=== PATIENT | female | born 1950 | race Caucasian/White ===

== ENCOUNTER 2018-09-30 19:14 | Observation (INO) | payer MEDICARE, OTHER, SELFPAY ==
[2018-09-30 19:15] VITALS: BP 181/99; PULSE 73; RESP 12; TEMP 36.1; O2SAT 99; BMI 41.4
--- NOTE | 2018-09-30 19:35 | EKG12_ITS ---
Test Reason : Blood Pressure : / mmHG Vent. Rate : 072 BPM Atrial Rate : 072 BPM P-R Int : 162 ms QRS Dur : 066 ms QT Int : 396 ms P-R-T Axes : 052 020 061 degrees QTc Int : 433 ms Sinus rhythm with occasional Premature ventricular complexes Possible Left atrial enlargement Borderline ECG Confirmed by ROBERTO COOK ([id number]), greeting card editor ANI COOK ([id number]) on 10/03/2018 1:11:12 PM Referred By: ERICA Confirmed By:ROBERTO COOK
--- NOTE | 2018-09-30 19:35 | RAD_ITS ---
STUDY: X-RAY CHEST REASON FOR EXAM: Female, 68 years old. Dizziness TECHNIQUE: Single frontal view COMPARISON: None. FINDINGS: The lungs are clear and expanded. There is no demonstrated pleural abnormality. Cardiomegaly. Normal mediastinum and jil. Normal visualized pulmonary arteries. Normal visualized aortic arch and descending thoracic aorta. Degenerative changes of the thoracic spine. Normal visualized ribs, clavicles, and shoulders. There is no demonstrated abnormality of the visualized soft tissue structures of the upper abdomen. RAD/Chest 1 View (Portable) IMPRESSION: Cardiomegaly. Electronically Signed: Rishi Rodriguez DO at 19:54 EST Tel [phone], Service support ,
--- NOTE | 2018-09-30 19:36 | CT_ITS ---
STUDY: CT BRAIN WITHOUT CONTRAST REASON FOR EXAM: Female, 68 years old. Dizziness. RADIATION DOSAGE (If Supplied By Facility): CTDIvol = ( 44.99 ) mGy, DLP = ( 745.49 ) mGycm TECHNIQUE: Transaxial CT imaging of the brain was performed without administration of intravenous contrast material. Individualized dose optimization techniques were used for this CT. COMPARISON: None. FINDINGS: There is no acute bleed or infarct. There are normal white matter tracts. The ventricles are normal in configuration. There is no hydrocephalus. The visualized paranasal sinuses are clear. The mastoid air cells are well aerated. There is no skull fracture. CT/Brain/Head without Contrast IMPRESSION: No acute intracranial abnormality. Electronically Signed: Conor Grijalva, at 20:18 EST Tel , Service support ,
[2018-09-30 19:41] LABS: Bedside Glucose 86 mg/dL (70-110)
[2018-09-30 19:58] LABS: Absolute Lymphocyte Count 1.86 X10^3/ul (0.83-4.51); Absolute Neutrophil Count 4.2 X10^3/uL (2.0-7.7); Basophil# 0.02 X10^3/uL; Basophil% 0.3 % (0-1); Eosinophil# 0.19 X10^3/uL; Eosinophils% 2.9 % (0-5); Hematocrit 37.9 % (37-47); Hemoglobin 12.1 g/dl (12.0-15.0); Lymphocyte # 1.86 X10^3/ul (4.0); Lymphocyte % 28.3 % (19-41); Mean Corp Hgb Conc 31.9 g/gl (32-36); Mean Corpuscular Hgb 27.9 pg (27.0-32.0); Mean Corpuscular Volume 87.3 fL (81-99); Mean Platelet Vol. 10.6 fl (6.2-12.0); Monocyte# 0.32 X10^3/uL; Monocyte% 4.9 % (0-10); Neutrophil # 4.18 X10^3/uL (2.7-7.7); Neutrophil % 63.6 % (47-70); Platelet Count 236 K/mm3 (150-450); RBC Distribution Width CV 14.4 % (11.6-14.6); RBC Distribution Width SD 45.8 fl (35.1-43.9); Red Blood Count 4.34 M/mm3 (4.2-5.4); White Blood Count 6.6 K/mm3 (4.4-11.0)
--- NOTE | 2018-09-30 19:58 | ED.VISSUMM ---
- ER Visit Summary Date of Service: 09/30/18 Chief Complaint: [] Dizziness this evening History of Present Illness: The patient is a 68 F [] his usual state of health when she suddenly felt a spinning sensation this evening that persisted making hard for her to walk she simply states that her the room is constantly spitting in a circular fashion, she has no headache chest pain abdominal pain no numbness weakness paresthesias, negative review of systems normal bowel bladder habits no exposures no illnesses no history of stroke seizure ID or PE hypertension is well controlled Physical Examination: [] 180/90 General, no distress resting comfortably HEENT is generally unremarkable The neck is supple no adenopathy Cardiovascular, regular rate and rhythm Lungs, clear bilateral Abdomen, soft nontender Extremities, no clubbing cyanosis or edema Neurologic, awake alert answering questions appropriately moving all 4 extremities there is no nystagmus head neck exam unremarkable, visual lux are normal motor sensory cerebellar normal just a sense of dizziness she does not wish to stay that she states she feels very dizzy when she stands her NIH is 0 Test Results: [] Emergency Department Course and Treatment: [] All the above the differentials rather extensive labs CT symptomatic management Ativan and meclizine Feels improvement we tried a walker she still felt dizzy did not feel comfortable discharge home, all of her labs and head CT were generally unremarkable at this time we spoke with hospitalist will admit for further management Treatment Plan: [] Disposition: [] admit stable Impression: [] Intractable vertigo This note was generated with [employer] dictation software. It may contain incorrect words, spelling, and punctuation that were not noted in review of the chart prior to signing ED Disposition - Plan for ED Patient: Referrals: Patricia Becker DO [Primary Care Provider] -
[2018-09-30 19:59] LABS: POSITIVE COUNT NO; POSITIVE DIFFERENTIAL NO; POSITIVE MORPHOLOGY NO
[2018-09-30 20:17] LABS: Anion Gap 7 (5-15); BUN 18 mg/dL (7-18); BUN/Creat Ratio 15.1 RATIO (10-20); Calcium,Total 8.5 mg/dL (8.5-10.1); Chloride 110 mmol/L (98-107); Creatinine, Serum 1.19 mg/dL (0.55-1.02); EST Glomerular Filtration Rate 48 mL/min (>60); Est Glom Filt Rate - Afr Amer 58 mL/min (>60); Estimated Creatinine Clearance 41.77 ml/min; Glucose 96 mg/dL (74-106); Potassium 4.2 mmol/L (3.5-5.1); Sodium Level 142 mmol/L (136-145)
[2018-09-30 20:28] LABS: BNP,B-Type NATRIURETIC PEPTIDE 105.1 pg/mL (0-100)
[2018-09-30 21:14] VITALS: BP 134/95; PULSE 69; RESP 18; O2SAT 96
[2018-09-30] MEDS: Meclizine HCl 25 MG Tablet PO (21:22)
[2018-09-30] MEDS: LORazepam 2 MG/ML Syringe 1 MG IV (21:22)
[2018-09-30] MEDS: 0.9% Normal Saline 1,000 ML 15 ML IV (21:22)
[2018-09-30 22:42] VITALS: O2SAT 98
[2018-09-30 23:00] VITALS: BP 161/71; PULSE 73; RESP 17; O2SAT 97
--- NOTE | 2018-09-30 23:47 | PCM.HP.STD ---
History of Present Illness Date of Admission: 09/30/18 Chief Complaint: dizziness The patient is a 68 year old F with no significant past medical history. She was admitted through the ED with a complaint of sudden onset of dizziness which started about 7 PM on the night of admission. She is never had such dizziness before. She said she was on her feet in the kitchen working and suddenly had acute onset of dizziness as she was turning. She did not fall but had to be assisted to her seat. Dizziness persisted and so she decided to come into the ED. She denied any lightheadedness, palpitations, blurred vision, hearing impairment, any recent upper respiratory tract infection, any weakness in her extremities, any diarrhea vomiting. Review of systems otherwise negative. She has never had dizziness like this before. In the ED, vitals were significant for elevated blood pressure of 161/71. Brain CT was negative for any acute intracranial pathology. Chest x-ray was only positive for cardiomegaly. Troponin was negative and creatinine was 1.19. BNP was only marginally elevated at 105.1. EKG showed no acute ST changes. She has been admitted to be managed for vertigo. 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 Lives: With Family Smoking Status: Never smoker Alcohol: Occasional Drugs: None - *Family History Maternal History Items: Heart Disease Paternal History Items: No pertinent history Review of Systems Constitutional: Denies: Chills, Fever, Malaise, Weakness, Weight Change, Fatigue Eyes: Denies: Blurred vision, Cataracts, Double vision, Vision Change HEENT: Denies: Head Aches, Sinus Congestion, Sinus Drainage Cardiovascular: Denies: Chest Pain, Palpitations Respiratory: Denies: Cough, Shortness of breath at rest, Sputum production Gastrointestinal: Denies: Abdominal Pain, Nausea, Vomiting Genitourinary: Denies: Dysuria Musculoskeletal: Denies: Joint Pain, Joint Tenderness Skin: Denies: Rash, Wounds Neurological: Reports: Balance problems, - - dizziness. Denies: Double vision, Change in Speech, Slurred speech, Confusion, Tremor, Seizures Psychiatric: Denies: Anxiety, Depression, Homicidal Ideations, Suicidal Ideations Hematologic/ Lymphatic: Denies: Easy Bruising, Easy Bleeding VTE Information - Inpt Only VTE Present on Admission: No VTE Pharm Prophylaxis ordered?: Yes - Physical Exam General: Alert, Oriented x3, Cooperative, No apparent distress, Lethargic HEENT: Atraumatic, PERRLA, EOMI, Normocephalic Oral: Moist Mucosa Neck: Supple, No JVD, Negative Carotid Bruits Lungs: Clear to auscultation, Normal air movement, No rhonchi, No wheeze, No rales Cardiovascular: Regular rate, Regular Rhythm, Normal S1, Normal S2, No murmurs Abdomen: Bowel Sounds Present, Soft, Non Tender, Non-Distended, No Hepato-splenomegaly Extremities: No clubbing, No cyanosis, No edema, Capillary Refill Less than 3 Seconds Skin: No rashes, No breakdown, Ulcer/ Wound Musculoskeletal: No Tenderness to Palpation of Joints or Extremities Lymphatic: No Cervical, Supraclavicular, or Inguinal Adenopathy Neurological: Cranial nerves II-XII grossly intact, Neuro grossly intact, Motor Exam 5/5 strength throughout, - - no nystagmus; got slightly dizzy with sitting up. Psych/Mental Status: Normal Affect, Appropriate, Alert and oriented to time, place, person, mood and affect Vital Signs Temp Pulse Resp BP Pulse Ox 96.9 F L 73 17 161/71 H 97 09/30/18 19:15 09/30/18 23:00 09/30/18 23:00 09/30/18 23:00 09/30/18 23:00 Oxygen Delivery Method Room Air Weight: 256 lb 9.889 oz Body Mass Index (BMI) 41.4 Finger Stick Blood Glucose 86 Laboratory Tests Past 24 Hrs 09/30/18 09/30/18 09/30/18 19:30 19:30 19:30 WBC 6.6 RBC 4.34 Hgb 12.1 Hct 37.9 MCV 87.3 MCH 27.9 MCHC 31.9 L RDW 14.4 RDW Differential 45.8 H Plt Count 236 MPV 10.6 Immature Gran % (Auto) 0.000 Neut % (Auto) 63.6 Lymph % (Auto) 28.3 Emery % (Auto) 4.9 Eos % (Auto) 2.9 Baso % (Auto) 0.3 Absolute Neuts (auto) 4.2 Absolute Lymphs (auto) 1.86 Total Counted Not Reportable Sodium 142 Potassium 4.2 Chloride 110 H Carbon Dioxide 25.0 Anion Gap 7 BUN 18 Creatinine 1.19 H Estim Creat Clear Calc 41.77 Est GFR (MDRD) Af Amer 58 L Est GFR (MDRD) Non-Af 48 L BUN/Creatinine Ratio 15.1 Glucose 96 Calcium 8.5 Troponin I < 0.015 B-Natriuretic Peptide 105.1 H POC Glucose 09/30/18 19:30 POC Glucose 86 Diagnostic Data Chest X-Ray 09/30/18 19:35 IMPRESSION: Cardiomegaly. Electronically Signed: Rishi Rodriguez, DO at 19:54 EST Tel [phone], Service support , Brain CT 09/30/18 19:36 IMPRESSION: No acute intracranial abnormality. Electronically Signed: Conor Grijalva, at 20:18 EST Tel , Service support , Assessment/Plan 68-year-old female admitted with a complaint of sudden onset of vertigo. 1. Vertigo, likely due to BPPV stroke is also another possibility that needs to be ruled out. admit to PCu with telemetry for MRI of brain tomorrow give aspirin 81mg daily NIHSS was 0 consult neurology in light of advanced age and sudden onset of vertigo, which she has never experienced 2. Elevated BP, with no previous diagnosis of hypertension does not have a diagnosis of hypertension. BP was however elevated on admission, being ~ 161/71. CXR also showed cardiomegaly, therefore supporting probability of underlying hypertension will monitor BP for now; to follow up with PCP for start of meds as needed. 3. Acute kidney deficiency: Creatinine is 1.19. Baseline unknown. Will hydrate very gently with IV fluids and monitor. DVT prophylaxis: Lovenox Code Visit OBSV E&M: 11888 Initial observation care L3
--- NOTE | 2018-09-30 23:52 | HP.PCM_ITS ---
History of Present Illness Date of Admission: 09/30/18 Chief Complaint: dizziness The patient is a 68 year old F with no significant past medical history. She was admitted through the ED with a complaint of sudden onset of dizziness which started about 7 PM on the night of admission. She is never had such dizziness before. She said she was on her feet in the kitchen working and suddenly had acute onset of dizziness as she was turning. She did not fall but had to be assisted to her seat. Dizziness persisted and so she decided to come into the ED. She denied any lightheadedness, palpitations, blurred vision, hearing impairment, any recent upper respiratory tract infection, any weakness in her extremities, any diarrhea vomiting. Review of systems otherwise negative. She has never had dizziness like this before. In the ED, vitals were significant for elevated blood pressure of 161/71. Brain CT was negative for any acute intracranial pathology. Chest x-ray was only positive for cardiomegaly. Troponin was negative and creatinine was 1.19. BNP was only marginally elevated at 105.1. EKG showed no acute ST changes. She has been admitted to be managed for vertigo. 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 Lives: With Family Smoking Status: Never smoker Alcohol: Occasional Drugs: None - *Family History Maternal History Items: Heart Disease Paternal History Items: No pertinent history Review of Systems Constitutional: Denies: Chills, Fever, Malaise, Weakness, Weight Change, Fatigue Eyes: Denies: Blurred vision, Cataracts, Double vision, Vision Change HEENT: Denies: Head Aches, Sinus Congestion, Sinus Drainage Cardiovascular: Denies: Chest Pain, Palpitations Respiratory: Denies: Cough, Shortness of breath at rest, Sputum production Gastrointestinal: Denies: Abdominal Pain, Nausea, Vomiting Genitourinary: Denies: Dysuria Musculoskeletal: Denies: Joint Pain, Joint Tenderness Skin: Denies: Rash, Wounds Neurological: Reports: Balance problems, - - dizziness. Denies: Double vision, Change in Speech, Slurred speech, Confusion, Tremor, Seizures Psychiatric: Denies: Anxiety, Depression, Homicidal Ideations, Suicidal Ideations Hematologic/ Lymphatic: Denies: Easy Bruising, Easy Bleeding VTE Information - Inpt Only VTE Present on Admission: No VTE Pharm Prophylaxis ordered?: Yes - Physical Exam General: Alert, Oriented x3, Cooperative, No apparent distress, Lethargic HEENT: Atraumatic, PERRLA, EOMI, Normocephalic Oral: Moist Mucosa Neck: Supple, No JVD, Negative Carotid Bruits Lungs: Clear to auscultation, Normal air movement, No rhonchi, No wheeze, No rales Cardiovascular: Regular rate, Regular Rhythm, Normal S1, Normal S2, No murmurs Abdomen: Bowel Sounds Present, Soft, Non Tender, Non-Distended, No Hepato- splenomegaly Extremities: No clubbing, No cyanosis, No edema, Capillary Refill Less than 3 Seconds Skin: No rashes, No breakdown, Ulcer/ Wound Musculoskeletal: No Tenderness to Palpation of Joints or Extremities Lymphatic: No Cervical, Supraclavicular, or Inguinal Adenopathy Neurological: Cranial nerves II-XII grossly intact, Neuro grossly intact, Motor Exam 5/5 strength throughout, - - no nystagmus; got slightly dizzy with sitting up. Psych/Mental Status: Normal Affect, Appropriate, Alert and oriented to time, place, person, mood and affect Vital Signs Temp Pulse Resp BP Pulse Ox 96.9 F L 73 17 161/71 H 97 09/30/18 19:15 09/30/18 23:00 09/30/18 23:00 09/30/18 23:00 09/30/18 23:00 Oxygen Delivery Method Room Air Weight: 256 lb 9.889 oz Body Mass Index (BMI) 41.4 Finger Stick Blood Glucose 86 Laboratory Tests Past 24 Hrs 09/30/18 09/30/18 09/30/18 19:30 19:30 19:30 WBC 6.6 RBC 4.34 Hgb 12.1 Hct 37.9 MCV 87.3 MCH 27.9 MCHC 31.9 L RDW 14.4 RDW Differential 45.8 H Plt Count 236 MPV 10.6 Immature Gran % (Auto) 0.000 Neut % (Auto) 63.6 Lymph % (Auto) 28.3 Wayne % (Auto) 4.9 Eos % (Auto) 2.9 Baso % (Auto) 0.3 Absolute Neuts (auto) 4.2 Absolute Lymphs (auto) 1.86 Total Counted Not Reportable Sodium 142 Potassium 4.2 Chloride 110 H Carbon Dioxide 25.0 Anion Gap 7 BUN 18 Creatinine 1.19 H Estim Creat Clear Calc 41.77 Est GFR (MDRD) Af Amer 58 L Est GFR (MDRD) Non-Af 48 L BUN/Creatinine Ratio 15.1 Glucose 96 Calcium 8.5 Troponin I < 0.015 B-Natriuretic Peptide 105.1 H POC Glucose 09/30/18 19:30 POC Glucose 86 Diagnostic Data Chest X-Ray 09/30/18 19:35 IMPRESSION: Cardiomegaly. Electronically Signed: Rishi Rodriguez, DO at 19:54 EST Tel [phone], Service support , Brain CT 09/30/18 19:36 IMPRESSION: No acute intracranial abnormality. Electronically Signed: Conor Grijalva, at 20:18 EST Tel , Service support , Assessment/Plan 68-year-old female admitted with a complaint of sudden onset of vertigo. 1. Vertigo, likely due to BPPV * stroke is also another possibility that needs to be ruled out. * admit to PCu with telemetry * for MRI of brain tomorrow * give aspirin 81mg daily * NIHSS was 0 * consult neurology in light of advanced age and sudden onset of vertigo, which she has never experienced * 2. Elevated BP, with no previous diagnosis of hypertension * does not have a diagnosis of hypertension. * BP was however elevated on admission, being ~ 161/71. * CXR also showed cardiomegaly, therefore supporting probability of underlying hypertension * will monitor BP for now; to follow up with PCP for start of meds as needed. * 3. Acute kidney deficiency: Creatinine is 1.19. Baseline unknown. Will hydrate very gently with IV fluids and monitor. DVT prophylaxis: Lovenox * Code Visit OBSV E&M: 52608 Initial observation care L3
[2018-10-01] VITALS (10 sets, daily range): BP systolic 141–189; BP diastolic 59–113; PULSE 68–85; RESP 16–18; TEMP 36.4–36.7; O2SAT 96–97; BMI 37.3; BMI 37.4
--- NOTE | 2018-10-01 01:32 | ECHOD_ITS ---
Reason For Study: Stroke Procedure This was a 2D Doppler, Color Flow transthoracic echocardiogram. Exam performed portable in patient room. Left Ventricle Normal size and thickness. The estimated ejection fraction is 65 %. No regional wall motion abnormalities noted. Right Ventricle Normal size and thickness. Normal systolic function. Atria The left atrium is mildly enlarged. Normal right atrium. Normal atrial septum. Bubble contrast study negative for right to left interatrial shunt. Mitral Valve Mild diffuse mitral valve thickening. Mild-Moderate mitral valve stenosis. Peak transmitral valve gradient 16 mmHg. Mean transmitral valve gradient 7 mmHg. Trivial posteriorly directed mitral valve insufficiency. Tricuspid Valve Normal tricuspid valve. Mild (1+) tricuspid valve insufficiency. Right ventricular systolic pressure estimated to be 41 mmHg. Mild pulmonary hypertension. Aortic Valve Normal aortic valve. Trisinus/trileaflet aortic valve. Pulmonic Valve Normal pulmonic valve. Great Vessels Normal aortic root. Normal arch. Normal inferior vena cava. Inferior vena cava collapse with sniff. Pericardium/Pleural No pericardial effusion. Medication Performed a rapid injection of agitated mix of 9 cc saline and 1cc air to assess for atrial septal defect. MMode/2D Measurements & Calculations LVIDd: 5.2 cm IVSd: 1.2 cm Ao root diam: 3.1 cm LVIDs: 3.9 cm LVPWd: 0.83 cm RVDd: 3.8 cm FS: 25.3 % LAV(MOD-bp): 69.9 ml LVAd ap4: 30.0 cm2 SV(MOD-sp4): 48.0 ml LAV(MOD-bp) Indexed: 32.9 ml/m2 EDV(MOD-sp4): 89.3 ml LAV(MOD-sp2): 65.3 ml EDV(sp4-el): 92.0 ml LAV(MOD-sp4): 62.7 ml LVAs ap4: 18.4 cm2 ESV(MOD-sp4): 41.3 ml ESV(sp4-el): 40.2 ml EF(MOD-sp4): 53.7 % EF(sp4-el): 56.3 % SV(sp4-el): 51.8 ml LA A4 area: 21.5 cm2 LA dimension(2D): 5.0 cm RA A4 area: 11.9 cm2 Time Measurements MV dec time: 0.09 sec Doppler Measurements & Calculations MV E max salazar: 143.7 cm/sec Lat Peak E' Salazar: 7.3 cm/sec Med Peak E' Salazar: 4.3 cm/sec MV A max salazar: 165.6 cm/sec E/E' lat: 19.7 E/E' med: 33.2 MV E/A: 0.87 MV V2 max: 202.2 cm/sec MV P1/2t max salazar: 160.5 cm/sec Ao V2 max: 184.4 cm/sec MV max P.4 mmHg MV P1/2t: 63.1 msec Ao max P.6 mmHg MV V2 mean: 125.4 cm/sec MV dec slope: 745.4 cm/sec2 Ao V2 mean: 129.2 cm/sec MV mean P.0 mmHg MVA(P1/2t): 3.5 cm2 Ao mean P.5 mmHg MV V2 VTI: 49.1 cm Ao V2 VTI: 40.8 cm LV V1 max: 121.4 cm/sec PA V2 max: 83.8 cm/sec LV V1 max P.9 mmHg LV V1 mean P.5 mmHg LV V1 mean: 72.4 cm/sec LV V1 VTI: 27.2 cm Interpretation Summary The estimated ejection fraction is 65 %. The left atrium is mildly enlarged. Mild-Moderate mitral valve stenosis. Trivial posteriorly directed mitral valve insufficiency. Bubble contrast study negative for right to left interatrial shunt. Right ventricular systolic pressure estimated to be 41 mmHg. Mild (1+) tricuspid valve insufficiency. Mild pulmonary hypertension. There is no comparison study available. Ordering Physician: Vandana Bishop Referring Physician: Patricia Becker Performed By: Jeannette Coffman RDCS, RVT
--- NOTE | 2018-10-01 05:55 | MRI_ITS ---
STUDY: MRI BRAIN WITHOUT CONTRAST REASON FOR EXAM: Female, 68 years old. Sagittal and onset of vertigo TECHNIQUE: Standardized multiplanar fat and water weighted pulse sequences were obtained. COMPARISON: None. FINDINGS: Normal size of the ventricles and extra-axial spaces for the patient's age. Normal white matter tracts of the supratentorial brain. Normal bilateral basal ganglia. Normal thalami. There is no extra-axial fluid accumulation. Normal flow voids within the major intracranial circulation suggesting patency by spin echo criteria. There is a small focal subcortical calcification in the right frontal lobe. Normal sella turcica, pituitary gland, infundibular stalk, optic chiasm and hypothalamus. Normal tectal plate and pineal gland. Normal midbrain, radha and medulla. Normal cerebellum. Normal basal cisterns. Normal bilateral temporal bones. Normal bilateral internal auditory canals. No demonstrated orbital abnormality, within the constraints of a routine brain study. Normal visualized paranasal sinuses. Normal calvarium and skull base. Normal visualized soft tissue structures. Normal visualized upper cervical spine. MRI/Brain without Contrast IMPRESSION: Normal unenhanced MRI of the brain. Electronically Signed: Divine Olson, at 14:45 EST Tel , Service support ,
[2018-10-01 06:12] LABS: Absolute Lymphocyte Count 1.67 X10^3/ul (0.83-4.51); Absolute Neutrophil Count 3.8 X10^3/uL (2.0-7.7); Basophil# 0.01 X10^3/uL; Basophil% 0.2 % (0-1); Eosinophil# 0.09 X10^3/uL; Eosinophils% 1.5 % (0-5); Hematocrit 36.9 % (37-47); Hemoglobin 11.6 g/dl (12.0-15.0); Lymphocyte # 1.67 X10^3/ul (4.0); Lymphocyte % 27.7 % (19-41); Mean Corp Hgb Conc 31.4 g/gl (32-36); Mean Corpuscular Hgb 27.6 pg (27.0-32.0); Mean Corpuscular Volume 87.9 fL (81-99); Mean Platelet Vol. 10.4 fl (6.2-12.0); Monocyte# 0.46 X10^3/uL; Monocyte% 7.6 % (0-10); Neutrophil # 3.78 X10^3/uL (2.7-7.7); Neutrophil % 62.8 % (47-70); Platelet Count 207 K/mm3 (150-450); RBC Distribution Width CV 14.1 % (11.6-14.6)
[2018-10-01 06:18] LABS: POSITIVE COUNT NO; POSITIVE DIFFERENTIAL NO; POSITIVE MORPHOLOGY NO
[2018-10-01 06:33] LABS: Anion Gap 8 (5-15); BUN 15 mg/dL (7-18); Calcium,Total 8.4 mg/dL (8.5-10.1); Chloride 113 mmol/L (98-107); Cholesterol 138 mg/dL (200); EST Glomerular Filtration Rate 58 mL/min (>60); Est Glom Filt Rate - Afr Amer 71 mL/min (>60); Glucose 90 mg/dL (74-106); High Density Lipoprotein 44 mg/dL; Magnesium 2.1 mg/dL (1.6-2.6); Potassium 4.1 mmol/L (3.5-5.1); Sodium Level 146 mmol/L (136-145); Triglycerides 91 mg/dL; Very Low Density Lipoprotein 18 mg/dL (5-40)
[2018-10-01] MEDS: Enoxaparin 40 MG/0.4 ML Syringe SC (08:22)
[2018-10-01] MEDS: Aspirin 81 MG TAB.CHEW PO (08:22)
[2018-10-01 08:38] LABS: Hemoglobin A1c 5.2 % (4.2-6.3)
--- NOTE | 2018-10-01 10:14 | PCM.CONS.GEN ---
Reason for Consult Date of Consultation: 10/01/18 Reason for Consultation: vertigo History of Present Illness: The patient is a 68 year old F right handed presents with spinning associated with nausea begining suddenly at 7pm last night, while turning. persists now, but improved when holds still. no recent illness or medication changes or trigger. denies focal weakness. denies diplopia or changes in speech or swallowing. no pt yet. per admit note:The patient is a 68 year old F with no significant past medical history. She was admitted through the ED with a complaint of sudden onset of dizziness which started about 7 PM on the night of admission. She is never had such dizziness before. She said she was on her feet in the kitchen working and suddenly had acute onset of dizziness as she was turning. She did not fall but had to be assisted to her seat. Dizziness persisted and so she decided to come into the ED. She denied any lightheadedness, palpitations, blurred vision, hearing impairment, any recent upper respiratory tract infection, any weakness in her extremities, any diarrhea vomiting. Review of systems otherwise negative. She has never had dizziness like this before. In the ED, vitals were significant for elevated blood pressure of 161/71. Brain CT was negative for any acute intracranial pathology. Chest x-ray was only positive for cardiomegaly. Troponin was negative and creatinine was 1.19. BNP was only marginally elevated at 105.1. EKG showed no acute ST changes. She has been admitted to be managed for vertigo. Past Medical History Allergies No Known Allergies Allergy (Verified 09/30/18 19:19) Home Medications: Ambulatory Orders Medication Instructions Recorded Estradiol [Estrace] 1 g VAGINALLY QWEEK 10/01/18 Surgical History: cholecystectomy Psychiatric History: No pertinent psych hx [employer] History: No pertinent [employer]ER history Lives: With Family Smoking Status: Never smoker Alcohol: Occasional Drugs: None - *Family History Maternal History Items: Heart Disease Paternal History Items: No pertinent history Review of Systems Constitutional: Denies: Chills, Fever, Weight Change HEENT: Denies: Head Aches, Sinus Congestion, Sinus Drainage Cardiovascular: Denies: Chest Pain, Palpitations Respiratory: Denies: Cough, Shortness of breath at rest, Sputum production Gastrointestinal: Denies: Abdominal Pain, Nausea, Vomiting Genitourinary: Denies: Dysuria Musculoskeletal: Denies: Joint Pain, Joint Tenderness Skin: Denies: Rash, Wounds Neurological: Reports: - - vertigo. Denies: Focal weakness, Numbness, Tingling Psychiatric: Denies: Anxiety, Depression, Homicidal Ideations, Suicidal Ideations Hematologic/ Lymphatic: Denies: Easy Bruising, Easy Bleeding - Physical Exam General: Alert, Oriented x3, Cooperative, No apparent distress HEENT: PERRLA, EOMI Neurological: Cranial nerves II-XII grossly intact, Deep Tendon Reflexes 2+/4 and Symmetrical, Neuro grossly intact, Motor Exam 5/5 strength throughout, Muscle tone normal, Sensory exam intact to light touch and pain, Coordination normal Psych/Mental Status: Normal Affect, Alert and oriented to time, place, person, mood and affect Vital Signs Temp Pulse Resp BP Pulse Ox 36.6 C 73 16 144/85 H 96 10/01/18 08:09 10/01/18 08:42 10/01/18 08:09 10/01/18 08:10 10/01/18 08:09 Oxygen Delivery Method Room Air Weight: 105.1 kg Body Mass Index (BMI) 37.3 Finger Stick Blood Glucose 86 Orthostatic Vital Signs Start: 10/01/18 08:10 Freq: q24h Status: Active Protocol: Activity Type Activity Date Activity User E-Sign Co-Sign Detail Recorded Client Recorded Date Recorded By Document 10/01/18 08:10 MLB [id number] 10/01/18 08:14 MLB 10/01/18 08:10 Orthostatic Vitals Standing -Blood Pressure (90/60-120/80) 189/113 H -Extremity Use Right Arm -Pulse Rate (60-100) 85 Sitting -Blood Pressure (90/60-120/80) 157/98 H -Extremity Use Right Arm -Pulse Rate (60-100) 80 Lying -Blood Pressure (90/60-120/80) 144/85 H -Extremity Use Right Arm -Pulse Rate (60-100) 78 Intake and Output for Last 24 Hours 09/29/18 09/30/18 10/01/18 23:59 23:59 23:59 Intake Total 189.1 / 189.1 Balance 189.1 / 189.1 Laboratory Tests Past 24 Hrs 09/30/18 09/30/18 09/30/18 19:30 19:30 19:30 WBC 6.6 RBC 4.34 Hgb 12.1 Hct 37.9 MCV 87.3 MCH 27.9 MCHC 31.9 L RDW 14.4 RDW Differential 45.8 H Plt Count 236 MPV 10.6 Immature Gran % (Auto) 0.000 Neut % (Auto) 63.6 Lymph % (Auto) 28.3 [place] % (Auto) 4.9 Eos % (Auto) 2.9 Baso % (Auto) 0.3 Absolute Neuts (auto) 4.2 Absolute Lymphs (auto) 1.86 Total Counted Not Reportable Sodium 142 Potassium 4.2 Chloride 110 H Carbon Dioxide 25.0 Anion Gap 7 BUN 18 Creatinine 1.19 H Estim Creat Clear Calc 41.77 Est GFR (MDRD) Af Amer 58 L Est GFR (MDRD) Non-Af 48 L BUN/Creatinine Ratio 15.1 Glucose 96 Hemoglobin A1c Calcium 8.5 Magnesium Troponin I < 0.015 B-Natriuretic Peptide 105.1 H Triglycerides Cholesterol LDL Cholesterol VLDL Cholesterol HDL Cholesterol 10/01/18 10/01/18 10/01/18 05:15 05:15 05:15 WBC 6.0 RBC 4.20 Hgb 11.6 L Hct 36.9 L MCV 87.9 MCH 27.6 MCHC 31.4 L RDW 14.1 RDW Differential 45.0 H Plt Count 207 MPV 10.4 Immature Gran % (Auto) 0.200 Neut % (Auto) 62.8 Lymph % (Auto) 27.7 [place] % (Auto) 7.6 Eos % (Auto) 1.5 Baso % (Auto) 0.2 Absolute Neuts (auto) 3.8 Absolute Lymphs (auto) 1.67 Total Counted Not Reportable Sodium 146 H Potassium 4.1 Chloride 113 H Carbon Dioxide 25.0 Anion Gap 8 BUN 15 Creatinine 1.00 Estim Creat Clear Calc 49.70 Est GFR (MDRD) Af Amer 71 Est GFR (MDRD) Non-Af 58 L BUN/Creatinine Ratio 15.0 Glucose 90 Hemoglobin A1c 5.2 Calcium 8.4 L Magnesium 2.1 Troponin I B-Natriuretic Peptide Triglycerides 91 Cholesterol 138 LDL Cholesterol 76 VLDL Cholesterol 18 HDL Cholesterol 44 POC Glucose 09/30/18 19:30 POC Glucose 86 Current Home Med List Medication Instructions Recorded Confirmed Type Estradiol [Estrace] 1 g VAGINALLY QWEEK 10/01/18 10/01/18 History Current Medications Generic Name Dose Route Start Last Admin Trade Name Freq PRN Reason Stop Dose Admin Aspirin 81 mg 10/01/18 08:00 10/01/18 08:22 Aspirin, Baby PO 81 mg DAILY@0800 PREETHI Administration Enoxaparin Sodium 40 mg 10/01/18 10:00 10/01/18 08:22 Lovenox SC 40 mg DAILY@1000 PREETHI Administration Sodium Chloride 1,000 mls @ 0 mls/hr 09/30/18 19:35 09/30/18 21:22 IV 15 mls/hr .Q0M PREETHI Administration KVO Magnesium Hydroxide 30 ml 10/01/18 00:19 Milk Of Magnesia PO DAILY PRN PRN Constipation Meclizine HCl 25 mg 10/01/18 01:37 Antivert PO TID PRN PRN Vertigo Sodium Chloride 5 - 15 ml 10/01/18 01:25 IV UD PRN SALINE FLUSH mri reviewed, normal Assessment/Plan bppv prn meclizine pt for repositioning maneuver
--- NOTE | 2018-10-01 11:07 | PCM.DC ---
You will use the following diet at home:: No restrictions Discharge Activity: Return to Normal Activity Call your doctor if you observe: Shortness of breath, Dizziness, Fainting spells, Chest pain Allergies/Adverse Reactions: Allergies No Known Allergies Allergy (Verified 09/30/18 19:19) Medications to take at Discharge Estradiol [Estrace] 1 g VAGINALLY QWEEK 10/01/18 Meclizine HCl [Antivert] 25 mg PO TID PRN PRN #21 tablet 10/01/18 The following prescriptions were given: Meclizine HCl [Antivert] 25 mg PO TID PRN PRN #21 tablet PRN Reason: Vertigo Primary Care Physician: Patricia Becker DO [Primary Care Provider] - Please follow up with your Primary Care Physician in: 1 Week Test Results: Test results from this visit will be discussed in further detail at your follow-up appointment, if applicable. Please Follow Up With: Aram Raymundo MD - ENT When: 1 Week if vertigo persists Proposed Discharge Date: 10/01/18
--- NOTE | 2018-10-01 11:10 | DCINST_ITS ---
You will use the following diet at home:: No restrictions Discharge Activity: Return to Normal Activity Call your doctor if you observe: Shortness of breath, Dizziness, Fainting spells, Chest pain Allergies/Adverse Reactions: Allergies No Known Allergies Allergy (Verified 09/30/18 19:19) Medications to take at Discharge Estradiol [Estrace] 1 g VAGINALLY QWEEK 10/01/18 Meclizine HCl [Antivert] 25 mg PO TID PRN PRN #21 tablet 10/01/18 The following prescriptions were given: Meclizine HCl [Antivert] 25 mg PO TID PRN PRN #21 tablet PRN Reason: Vertigo Primary Care Physician: Patricia Becker DO [Primary Care Provider] - Please follow up with your Primary Care Physician in: 1 Week Test Results: Test results from this visit will be discussed in further detail at your follow- up appointment, if applicable. Please Follow Up With: Aram Raymundo MD - ENT When: 1 Week if vertigo persists Proposed Discharge Date: 10/01/18
--- NOTE | 2018-10-01 11:19 | DS.PCM_ITS ---
Discharge Date and Diagnosis Date of Admission: 09/30/18 Date of Discharge: 10/01/18 - Primary Discharge Diagnosis 1. Vertigo, BPPV 2. Elevated blood pressure without diagnosis of HTN 3. Obesity Hospital Course and Treatment Imaging Results: Diagnostic Data Chest X-Ray 09/30/18 19:35 IMPRESSION: Cardiomegaly. Electronically Signed: Rishi Rodriguez DO at 19:54 EST Tel [phone], Service support , Brain CT 09/30/18 19:36 IMPRESSION: No acute intracranial abnormality. Electronically Signed: Conor Valentine, at 20:18 EST Tel , Service support , Dr. Shoemaker- Neurology Operations: None Procedures: 2-D Echocardiogram Summary of Care Provided: The patient is a 68 year old F admitted 10/01/18 due to vertigo. 1. Vertigo, BPPV-brain CT negative. Chest x-ray showed cardiomegaly. EKG without ST-T changes. Troponin negative. Neurology consulted. MRI of brain reported to be normal by neurology, final report pending in chart. BPPV per neuro. PT for vestibular therapy. Meclizine as needed. Echocardiogram pending and will be reviewed prior to discharge. Follow-up with primary care physician in 1 week. Follow-up with ENT, Dr. Raymundo in 1 week if vertigo persists. 2. Elevated blood pressure without diagnosis of HTN-patient's blood pressure intermittently elevated during admission. Patient reports she checks her blood pressure frequently at home and her blood pressure typically runs low. Did not begin new regimen. Instructed patient to check blood pressure daily and record findings to report to primary care physician to see if initiating blood pressure regimen as necessary. 3. Obesity-encouraged diet lifestyle modifications. Patient seen and examined prior to discharge. Physical assessment as noted below. Patient is stable for discharge with follow up recommendations as noted above. This patient was seen by RAISSA Melchor under the supervision of Dr. Johansen. - Physical Exam General: Alert, Oriented x3, Cooperative HEENT: Atraumatic, PERRLA, EOMI, Normocephalic Neck: Supple, No JVD, Negative Carotid Bruits Lungs: Clear to auscultation, Normal air movement Cardiovascular: Regular rate, Regular Rhythm, Normal S1, Normal S2, No murmurs Abdomen: Bowel Sounds Present, Soft, Non Tender, Non-Distended, Obese Extremities: No clubbing, No cyanosis, No edema, Capillary Refill Less than 3 Seconds Skin: No rashes, No breakdown Musculoskeletal: No Tenderness to Palpation of Joints or Extremities Neurological: Cranial nerves II-XII grossly intact, Neuro grossly intact Psych/Mental Status: Normal Affect, Appropriate Vital Signs Temp Pulse Resp BP Pulse Ox 97.9 F 73 16 144/85 H 96 10/01/18 08:09 10/01/18 08:42 10/01/18 08:09 10/01/18 08:10 10/01/18 08:09 Oxygen Delivery Method Room Air Weight: 231 lb 11.293 oz Body Mass Index (BMI) 37.3 Finger Stick Blood Glucose 86 Orthostatic Vital Signs Start: 10/01/18 08:10 Freq: q24h Status: Active Protocol: Activity Type Activity Date Activity User E-Sign Co-Sign Detail Recorded Client Recorded Date Recorded By Document 10/01/18 08:10 MLB [id number] 10/01/18 08:14 MLB 10/01/18 08:10 Orthostatic Vitals Standing -Blood Pressure (90/60-120/80) 189/113 H -Extremity Use Right Arm -Pulse Rate (60-100) 85 Sitting -Blood Pressure (90/60-120/80) 157/98 H -Extremity Use Right Arm -Pulse Rate (60-100) 80 Lying -Blood Pressure (90/60-120/80) 144/85 H -Extremity Use Right Arm -Pulse Rate (60-100) 78 Intake and Output for Last 24 Hours 09/29/18 09/30/18 10/01/18 23:59 23:59 23:59 Intake Total 189.1 / 189.1 Balance 189.1 / 189.1 Laboratory Tests Past 24 Hrs 09/30/18 09/30/18 09/30/18 19:30 19:30 19:30 WBC 6.6 RBC 4.34 Hgb 12.1 Hct 37.9 MCV 87.3 MCH 27.9 MCHC 31.9 L RDW 14.4 RDW Differential 45.8 H Plt Count 236 MPV 10.6 Immature Gran % (Auto) 0.000 Neut % (Auto) 63.6 Lymph % (Auto) 28.3 [place] % (Auto) 4.9 Eos % (Auto) 2.9 Baso % (Auto) 0.3 Absolute Neuts (auto) 4.2 Absolute Lymphs (auto) 1.86 Total Counted Not Reportable Sodium 142 Potassium 4.2 Chloride 110 H Carbon Dioxide 25.0 Anion Gap 7 BUN 18 Creatinine 1.19 H Estim Creat Clear Calc 41.77 Est GFR (MDRD) Af Amer 58 L Est GFR (MDRD) Non-Af 48 L BUN/Creatinine Ratio 15.1 Glucose 96 Hemoglobin A1c Calcium 8.5 Magnesium Troponin I < 0.015 B-Natriuretic Peptide 105.1 H Triglycerides Cholesterol LDL Cholesterol VLDL Cholesterol HDL Cholesterol 10/01/18 10/01/18 10/01/18 05:15 05:15 05:15 WBC 6.0 RBC 4.20 Hgb 11.6 L Hct 36.9 L MCV 87.9 MCH 27.6 MCHC 31.4 L RDW 14.1 RDW Differential 45.0 H Plt Count 207 MPV 10.4 Immature Gran % (Auto) 0.200 Neut % (Auto) 62.8 Lymph % (Auto) 27.7 [place] % (Auto) 7.6 Eos % (Auto) 1.5 Baso % (Auto) 0.2 Absolute Neuts (auto) 3.8 Absolute Lymphs (auto) 1.67 Total Counted Not Reportable Sodium 146 H Potassium 4.1 Chloride 113 H Carbon Dioxide 25.0 Anion Gap 8 BUN 15 Creatinine 1.00 Estim Creat Clear Calc 49.70 Est GFR (MDRD) Af Amer 71 Est GFR (MDRD) Non-Af 58 L BUN/Creatinine Ratio 15.0 Glucose 90 Hemoglobin A1c 5.2 Calcium 8.4 L Magnesium 2.1 Troponin I B-Natriuretic Peptide Triglycerides 91 Cholesterol 138 LDL Cholesterol 76 VLDL Cholesterol 18 HDL Cholesterol 44 POC Glucose 09/30/18 19:30 POC Glucose 86 Discharge Diet: No Restrictions Discharge Activity: Return to Normal Activity Call your doctor if you observe: Shortness of breath, Dizziness, Fainting spells, Chest pain Home Medications: Medications to take at Discharge Estradiol [Estrace] 1 g VAGINALLY QWEEK 10/01/18 Meclizine HCl [Antivert] 25 mg PO TID PRN PRN #21 tablet 10/01/18 Following Prescrptions Were Given to Patient: Meclizine HCl [Antivert] 25 mg PO TID PRN PRN #21 tablet PRN Reason: Vertigo Primary Care Physician: Patricia Becker DO [Primary Care Provider] - Please follow up with your Primary Care Physician in: 1 Week Please Follow Up With: Aram Raymundo MD - ENT When: 1 Week if vertigo persists Disposition: Home Minutes spent on discharge:: 35 Patient Condition:: Stable Medical Necessity - Tobacco Use Smoking Status: Never smoker Meaningful Use Info Meaningful Use Diagnoses (Choose all that apply): None applicable
[2018-10-01] MEDS: Meclizine HCl 25 MG Tablet PO (14:07)
== END 2018-10-01 11:09 | disposition home or self-care (01) ==
LOC: ED 20:52 → PCU 23:34
PROVIDERS: Admitting Provider Student in an Organized Health Care Education/Training Program; Emergency Provider Emergency Medicine; Family Provider Internal Medicine; PCP Internal Medicine; Visit Provider Internal Medicine
DX: H81.10 Benign paroxysmal vertigo, unspecified ear (principal); E66.9 Obesity, unspecified; Z68.37 Body mass index [BMI] 37.0-37.9, adult; Z71.3 Dietary counseling and surveillance; R03.0 Elevated blood-pressure reading, without diagnosis of hypertension; Z79.899 Other long term (current) drug therapy; I27.20 Pulmonary hypertension, unspecified; I08.1 Rheumatic disorders of both mitral and tricuspid valves
CPT/HCPCS: 36415; 70450; 70551; 71045; 80048; 80061; 82962; 83036; 83735; 83880; 84484; 85025; 93005; 93306; 96361; 96372; 96374; 97161; 99218; 99285; J7030; J7040; Q9957; A4216; G0378

== ENCOUNTER → 2019-03-11 10:30 | Outpatient (CLI) | payer MEDICARE, OTHER, SELFPAY ==
[2018-10-01 12:07] VITALS: BMI 37.3
--- NOTE | 2019-03-11 10:44 | RAD_ITS ---
STUDY: X-RAY - ABDOMEN/PELVIS REASON FOR EXAM: Female, 69 years old. Kidney stone for 5 years. Occasional pain. TECHNIQUE: Two AP supine views of the abdomen and pelvis. COMPARISON: April 17, 2016. FINDINGS: Normal visualized lung bases. There is an unremarkable bowel gas pattern. There is no demonstrated free abdominal air. The visualized liver, spleen and kidneys are grossly normal in size and morphology. Cholecystectomy clips are seen in the right upper quadrant. Again seen is a teardrop shaped calcification overlying lower pole left kidney consistent with renal calculus. This is unchanged from previous exam. No other suspicious calcifications are present. Normal soft tissue structures. Stable degenerative changes of the lumbar spine. RAD/Abdomen Single View IMPRESSION: No acute abnormality or interval change. Electronically Signed: Trell Ramirez DO at 18:04 EDT Tel [phone], Service support ,
== END ==
PROVIDERS: Family Provider Internal Medicine; PCP Internal Medicine; Referring Provider Urology; Visit Provider Urology
DX: N20.0 Calculus of kidney (principal)
CPT/HCPCS: 74018

== ENCOUNTER 2019-03-24 07:00 | Day surgery (SDC) | payer MEDICARE, OTHER, SELFPAY ==
[2018-10-01 12:07] VITALS: BMI 37.3
[2019-03-24 07:29] VITALS: BP 162/91; PULSE 70; RESP 16; TEMP 36.2; O2SAT 97; BMI 36.7
--- NOTE | 2019-03-24 07:51 | PCM.OPRPT ---
Problem List (1) Left renal stone Status: Acute Report of Operation Date of Procedure: 03/24/19 Pre-Operative Diagnosis: left renal calculus Post-Operative Diagnosis: same Surgery/Procedure Performed:: left renal extracorporeal shockwave lithotripsy, cystoscopy and left ureteral stent insertion. Description of Surgical Findings:: The patient is a 69-year-old female whose had a left renal calculus for some time. She presented to the office, and after discussing the risk benefits and alternatives, she agreed to proceed with shockwave lithotripsy. Informed consent was obtained. The patient was taken to the operating room and placed in the operating room table. Anesthesia monitored the head, neck, airway, IV access and vital signs throughout the case. Once anesthesia was appropriately administered the patient was placed in appropriate position in the lithotripter. The stone was identified and appeared enlarged from previous imaging studies. The decision was made to insert a stent at the end of the lithotripsy. I discussed this decision with the patient's daughter and and they agreed. The patient received 3000 shocks to the stone which appeared to be fragmented. Cystoscopy was performed using a 30 degree lens. The urine was the color of pink lemonade and direct visualization of the mucosa was difficult. The left ureteral orifice was identified and a 0.035 Glidewire was inserted without difficulty. A 6 Armenian 24 cm double-J stent was passed and had good positioning in the renal pelvis as well as the urinary bladder. There were no complications during the procedure. She was taken to the recovery room in good condition. Type of Anesthesia:: General Description of Procedure: The stone was well fragmented at the conclusion of 3000 shocks. A 6 Armenian 24 cm double-J stent was used. Grafts/Implants Used: [id number] JJ stent - Complications none - Admit VTE Documentation VTE Present on Admission: Yes VTE Mechan Device Prophylaxis: SCD's VTE Pharm Prophylaxis ordered?: No Reason prophylaxis not ordered:: Treatment Not Indicated
--- NOTE | 2019-03-24 07:53 | DCINST_ITS ---
Discharge Diet: No Restrictions Discharge Activity: May not drive while taking narcotic pain medications. Call your doctor if you observe: Fever of 101 or Higher, Inability to urinate, Shortness of breath, Calf discomfort, Uncontrolled pain Allergies/Adverse Reactions: Allergies No Known Allergies Allergy (Verified 03/17/19 14:28) Medications to take at Discharge RX: Estradiol [Estrace] 1 g VAGINALLY QWEEK 10/01/18 Albuterol Inhaler [Ventolin Hfa (SP)] 1 - 2 puff INHALATION Q4H PRN PRN 03/17/19 Diltiazem HCl [Diltiazem ER] 360 mg PO DAILY 03/17/19 Multivitamin with Minerals [Multiple Vitamin] 1 ea PO DAILY 03/17/19 RX: Bee Pollen 550 mg PO DAILY 03/17/19 Primary Care Physician: Patricia Becker DO [Primary Care Provider] - Test Results: Test results from this visit will be discussed in further detail at your follow- up appointment, if applicable. Please Follow Up With: Rosaura Prather MD When: call office for appt Proposed Discharge Date: 03/24/19
[2019-03-24] MEDS: Lactated Ringers 1,000 ML 100 ML IV (08:00)
[2019-03-24] MEDS: Cefazolin 2 GM in 0.9% Normal Saline 100 ML IV (08:46)
[2019-03-24 10:07] VITALS: BP 121/82; BP 162/91; PULSE 69; RESP 16; TEMP 36.2; O2SAT 96
[2019-03-24 10:15] VITALS: BP 132/85; BP 162/91; PULSE 67; RESP 16; O2SAT 96
[2019-03-24 10:30] VITALS: BP 137/80; BP 162/91; PULSE 64; RESP 16; O2SAT 93
[2019-03-24 10:38] VITALS: BP 139/81; BP 162/91; PULSE 66; RESP 16; TEMP 36.6; O2SAT 93
[2019-03-24 11:13] VITALS: BP 142/75; BP 162/91; PULSE 61; RESP 16; TEMP 36.6; O2SAT 96
[2019-03-24] MEDS: Acetaminophen 325 MG Tablet PO (11:37)
[2019-03-24] MEDS: oxyCODONE 5 MG Tablet PO (11:37)
== END 2019-03-24 11:20 | disposition home or self-care (01) ==
LOC: SDC 07:02 → AC 07:02
PROVIDERS: Family Provider Internal Medicine; PCP Internal Medicine; Referring Provider Urology; Visit Provider Urology
PROC: (CPT 50590; principal; 2019-03-24 08:30)
DX: N20.0 Calculus of kidney (principal); I10 Essential (primary) hypertension; J45.909 Unspecified asthma, uncomplicated; G47.30 Sleep apnea, unspecified; Z79.899 Other long term (current) drug therapy
CPT/HCPCS: 00873; 50590; 52282; J7120; C2617; J2405

== ENCOUNTER → 2019-04-13 12:38 | Outpatient (CLI) | payer MEDICARE, OTHER, SELFPAY ==
[2019-03-24 07:29] VITALS: BMI 36.7
--- NOTE | 2019-04-13 12:46 | RAD_ITS ---
STUDY: X-RAY - ABDOMEN/PELVIS REASON FOR EXAM: Female, 69 years old. Flank pain TECHNIQUE: Single AP view of the abdomen / pelvis. COMPARISON: 03/11/2019 FINDINGS: A left-sided JJ stent has been placed, there has likely been recent lithotripsy as there are multiple calcific densities noted along the course of the left-sided JJ stent measuring between 1 and 3 mm. A large calcification in the lower pole of the left kidney has changed since the previous study again likely due to lithotripsy. Now measures approximate 0.7 cm in greatest dimension with multiple punctate calcifications around its periphery. There is a moderate amount of colonic fecal material. There is no demonstrated free abdominal air. The visualized liver, spleen and kidneys are grossly normal in size and morphology. Normal soft tissue structures. There are diffuse degenerative changes of the visualized lumbar spine. RAD/Abdomen Single View IMPRESSION: Patient has likely undergone lithotripsy since the previous study with placement of a left-sided JJ stent. A large calcification in the lower pole of the left kidney which previously measured 1.8 cm now shows multiple fragments with the largest measuring 0.7 cm. There are multiple calcifications along the course of the left-sided JJ stent measuring between 1 and 3 mm. Retained stool Degenerative bony changes Electronically Signed: Wilton Salazar MD at 13:49 EDT , Service support ,
== END ==
PROVIDERS: Family Provider Internal Medicine; PCP Internal Medicine; Referring Provider Urology; Visit Provider Urology
DX: N20.0 Calculus of kidney (principal)
CPT/HCPCS: 74018

== ENCOUNTER 2019-04-21 08:26 | Day surgery (SDC) | payer MEDICARE, OTHER, SELFPAY ==
[2019-04-21] VITALS (7 sets, daily range): BP systolic 125–151; BP diastolic 63–92; PULSE 60–69; RESP 16–18; TEMP 36.1–36.4; O2SAT 96–99; BMI 36.2
--- NOTE | 2019-04-21 | CALC_PTH ---
PATIENT: ROGE [place]OOK [place] [facility] [id number] AGE/SX: 69/F ROOM: RE04/21/[address]: Dr. Rosaura Prather MD : 1950 BED: DIS: 04/21/2019 SPEC #: [id number] RECD: 04/21/19 13:57 STATUS: BRIANA UMAÑA #: [id number] ROXI: 04/21/19 00:[address]: Rosarua Prather DEPT: SURGICAL PATHOLOGY RECD BY: Laz Sue ENTERED: 04/21/19 13:58 SP TYPE: Calculi OTHR DR: DO Patricia aZmora DO Tissues: CALCULI Procedures: Surgery Specimen Level I HEADER OPERATION: Cysto, left ureteroscopy, laser lithotripsy, ureteral stent PRE-OP DIAGNOSIS: Calculus of kidney with calculus of left ureter TISSUE SUBMITTED: Calculus GROSS DIAGNOSIS Calculus of left ureter, removal: Fragments of unremarkable calculi (gross diagnosis only). AM:jeremy 04/22/19 COMMENT The calculus is submitted in its entirety for chemical stone analysis. The results from this study will be reported separately. GROSS DESCRIPTION Received in fixative is one container labeled with the patient's name and designated ureteral renal stone, left. The specimen consists of multiple irregular fragments of dark barnes calculi that in aggregate measure 2 x 1 x 0.2 cm. / AM:jeremy 04/21/19 CPT: 46744
[2019-04-21 10:15] LABS: Mucous, Urine 0 SEEN /hpf (<or=2+); Squamous Epithelial Cells - UA 0 SEEN /hpf (5-10)
[2019-04-21 10:19] LABS: Color, Urine Yellow (Yellow); Glucose, Dipstick Normal (Normal); Ketone-Dipstick Negative (Negative); Leukocyte Esterase-Dipstick 500 /ul (Negative); Nitrite-Dipstick Negative (Negative); Occult Blood-Urine 250 /ul (Negative); Protein-Dipstick Negative (Negative); Specific Gravity, Urine 1.005 (1.002-1.030); Urine Bilirubin Dipstick Negative (Negative); Urine Clarity Clear (Clear); Urine Urobilinogen Normal (Normal); Urine pH 6.5 (5.0 - 8.0)
[2019-04-21 10:25] LABS: Bacteria RARE /hpf (None Seen); Red Blood Cells-Urine 10-25 SEEN /hpf (0-5); White Blood Cells 0-5 SEEN /hpf (0-5)
--- NOTE | 2019-04-21 10:30 | DCINST_ITS ---
Discharge Diet: No Restrictions Discharge Activity: May not drive while taking narcotic pain medications., May Shower Call your doctor if you observe: Fever of 101 or Higher, Inability to urinate, Shortness of breath, Chest pain, Calf discomfort, Uncontrolled pain Allergies/Adverse Reactions: Allergies poison brandee extract Allergy (Verified 04/16/19 09:13) Rash poison oak extract Allergy (Verified 04/16/19 09:13) Rash Medications to take at Discharge Estradiol [Estrace] 1 g VAGINALLY QWEEK 10/01/18 Albuterol Inhaler [Ventolin Hfa] 1 - 2 puff INHALATION Q4H PRN PRN 03/17/19 Bee Pollen 550 mg PO DAILY 03/17/19 Diltiazem HCl [Diltiazem 24Hr ER (LA)] 360 mg PO DAILY 03/17/19 Multivitamin with Minerals [Multiple Vitamin] 1 ea PO DAILY 03/17/19 Cephalexin [Keflex] 500 mg PO Q12 3 Days #6 cap 04/21/19 Oxycodone HCl/Acetaminophen [Percocet 5/325] 1 - 2 tab PO Q6H PRN PRN 7 Days #20 tab 04/21/19 Phenazopyridine HCl [Pyridium] 200 mg PO TID PRN PRN 7 Days #30 tab 04/21/19 The following prescriptions were given: Cephalexin [Keflex] 500 mg PO Q12 3 Days #6 cap Prescription Printed Oxycodone HCl/Acetaminophen [Percocet 5/325] 1 - 2 tab PO Q6H PRN PRN 7 Days #20 tab PRN Reason: Pain Prescription Printed Phenazopyridine HCl [Pyridium] 200 mg PO TID PRN PRN 7 Days #30 tab PRN Reason: Bladder Spasms Prescription Printed Primary Care Physician: Patricia Becker DO [Primary Care Provider] - Test Results: Test results from this visit will be discussed in further detail at your follow- up appointment, if applicable. Please Follow Up With: Rosaura Prather MD When: call office for appt in 1 week for stent removal. Proposed Discharge Date: 04/21/19
--- NOTE | 2019-04-21 10:31 | PCM.OPRPT ---
Problem List (1) Calculus of kidney with calculus of ureter Status: Acute Report of Operation Date of Procedure: 04/21/19 Pre-Operative Diagnosis: left renal and ureteral calculus Post-Operative Diagnosis: same Surgery/Procedure Performed:: cystoscopy, left ureteroscopy, laser lithotripsy, stone basket extraction and left ureteral stent change Description of Surgical Findings:: A ureteral access sheath and flexible ureteroscopy were performed with a holmium laser lithotripsy and stone basket extraction all large stone fragments were removed. There are small remaining fragments too small to be removed with the basket. Type of Anesthesia:: General Description of Procedure: Patient is a 69-year-old female who underwent an extracorporal shockwave lithotripsy of a large left renal calculus approximately a month ago. She now presents after 50% of the stone has passed to definitively treat the remaining stone burden. On last KUB done approximately 1 week ago she had 3 ureteral stones alongside her stent. All risks benefits and alternatives were discussed and informed consent was obtained. Patient was taken to the operating room placed in the operating room table. Anesthesia monitored the head, neck, airway, IV access and vital signs throughout the case. Once anesthesia was probably administered patient was placed into dorsal lithotomy position was prepped and draped in usual sterile fashion. A cystourethroscopy revealed the left ureteral stent. Two .035 glide wires were passed alongside the stent which was then removed without difficulty. Using 1 wire as a safety wire, the other one was used for placement of the the ureteral access sheath under fluoroscopic visualization. After the sheath was safely inserted ureteroscopy was performed through the sheath and the stone was identified. It was in the lower pole and there were 2 large pieces with some small fragments. The stones here were lasered into small pieces and removed with the basket. The ureteral stones were observed in the ureter as the ureteral reaccessed sheath was being removed under direct visualization. As soon as a stone fragment was identified, the sheath was left in place and the basket was used to grasp the stone and remove it through the sheath. The ureteroscope was then reentered and the sheath was removed completely under direct visualization. There were no ureteral injuries. Using the safety wire, a 7 Lithuanian 24 cm double-J stent was inserted without difficulty. The patient's bladder was then emptied and the case was terminated. She was taken to the recovery room in good condition. Grafts/Implants Used: 7 x 24 cm double-J ureteral stent - Complications None - Admit VTE Documentation VTE Present on Admission: Yes VTE Mechan Device Prophylaxis: SCD's VTE Pharm Prophylaxis ordered?: No Reason prophylaxis not ordered:: Treatment Not Indicated
[2019-04-21] MEDS: Acetaminophen 325 MG Tablet 650 MG PO (14:50)
[2019-04-21] MEDS: oxyCODONE 5 MG Tablet 10 MG PO (14:50)
[2019-04-30 09:07] LABS: Ca Oxalate, Monohydrate 97 % (.)
[2019-04-30 12:04] LABS: Comment Note: (.)
== END 2019-04-21 16:40 | disposition home or self-care (01) ==
LOC: SDC 08:27 → AC 08:27
PROVIDERS: Family Provider Internal Medicine; PCP Internal Medicine; Referring Provider Urology; Visit Provider Urology
PROC: 0TJ98ZZ Inspection of Ureter, Via Natural or Artificial Opening Endoscopic (ICD-10-PCS; CPT 52352; principal; 2019-04-21 10:00)
DX: N20.2 Calculus of kidney with calculus of ureter (principal); L90.0 Lichen sclerosus et atrophicus; I10 Essential (primary) hypertension; J45.909 Unspecified asthma, uncomplicated; G47.30 Sleep apnea, unspecified; Z79.899 Other long term (current) drug therapy
CPT/HCPCS: 00873; 52356; 76000; 81001; 82360; 87086; 87088; 88300; J7120; C1769; C1874; J2405

== ENCOUNTER → 2019-04-29 09:47 | Outpatient (CLI) | payer MEDICARE, OTHER, SELFPAY ==
[2019-04-21 09:19] VITALS: BMI 36.2
--- NOTE | 2019-04-29 09:50 | RAD_ITS ---
STUDY: X-RAY - ABDOMEN/PELVIS REASON FOR EXAM: Female, 69 years old. Kidney stone TECHNIQUE: KUB COMPARISON: July 13, 2019 FINDINGS: Normal visualized lung bases. There is an unremarkable bowel gas pattern. There is no demonstrated free abdominal air. The visualized liver, spleen and kidneys are grossly normal in size and morphology. Question tiny calculus in the lower pole collecting system Postop change status post cholecystectomy. Left ureterovesical stent noted. Normal visualized osseous structures. RAD/Abdomen Single View IMPRESSION: Status post left ureterovesical stent placement. Electronically Signed: Alberto Mcintosh MD at 19:20 EDT , Service support ,
== END ==
PROVIDERS: Family Provider Internal Medicine; PCP Internal Medicine; Referring Provider Urology; Visit Provider Urology
DX: N20.0 Calculus of kidney (principal)
CPT/HCPCS: 74018

== ENCOUNTER 2019-05-05 07:09 | Day surgery (SDC) | payer MEDICARE, OTHER, SELFPAY ==
[2019-04-21 09:19] VITALS: BMI 36.2
[2019-05-05 07:56] VITALS: BP 156/67; PULSE 69; RESP 16; TEMP 36.3; O2SAT 98; BMI 36.6
[2019-05-05] MEDS: Lactated Ringers 1,000 ML 100 ML IV (08:50)
--- NOTE | 2019-05-05 08:56 | PCM.OPRPT ---
Problem List (1) Migration of ureteral stent Status: Acute (2) Calculus of kidney with calculus of ureter Status: Acute Report of Operation Date of Procedure: 05/05/19 Pre-Operative Diagnosis: migration ureteral stent, ureteral and kidney stone, left side Post-Operative Diagnosis: same Surgery/Procedure Performed:: left ureteroscopy, removal left ureteral stent Description of Surgical Findings:: stent removed without difficulty. Type of Anesthesia:: MAC Special Medications: ancef Description of Procedure: Patient is a 69-year-old female who underwent ureteroscopic stone extraction approximately 2 weeks ago and developed a migration of her left ureteral stent into the distal aspect of the left ureter. I was unable to remove it in the office and she now presents for ureteroscopy and removal of her left ureteral stent. All risk benefits and alternatives were discussed and she agreed to proceed. Patient was taken to the operating room and placed on the operating room table. Anesthesia monitored the head, neck, airway, IV access and vital signs throughout the case. Once anesthesia was a probably administered patient was prepped and draped in usual sterile fashion. She was placed into dorsal lithotomy position a left ureteroscopy was performed in the left ureteral stent was easily visualized. It was grasped using biopsy forceps after a stone basket extraction failed. It was removed without difficulty. The case was terminated and the patient was awakened and taken to the recovery room in good condition. There were no complications during the procedure. Grafts/Implants Used: none - Complications none - Admit VTE Documentation VTE Present on Admission: Yes VTE Mechan Device Prophylaxis: SCD's VTE Pharm Prophylaxis ordered?: No Reason prophylaxis not ordered:: Treatment Not Indicated
[2019-05-05] MEDS: Cefazolin 2 GM in 0.9% Normal Saline 100 ML IV (08:58)
--- NOTE | 2019-05-05 08:59 | DCINST_ITS ---
Discharge Diet: No Restrictions Discharge Activity: Return to Normal Activity, May Shower Call your doctor if you observe: Fever of 101 or Higher, Inability to urinate, Inability to have a bowel movement, Shortness of breath, Chest pain, Calf discomfort, Uncontrolled pain Allergies/Adverse Reactions: Allergies poison brandee extract Allergy (Verified 05/04/19 09:51) Rash poison oak extract Allergy (Verified 05/04/19 09:51) Rash Medications to take at Discharge Estradiol [Estrace] 1 g VAGINALLY QWEEK 10/01/18 Albuterol Inhaler [Ventolin Hfa] 1 - 2 puff INHALATION Q4H PRN PRN 03/17/19 Bee Pollen 550 mg PO DAILY 03/17/19 Diltiazem HCl [Diltiazem 24Hr ER (LA)] 360 mg PO DAILY 03/17/19 Multivitamin with Minerals [Multiple Vitamin] 1 ea PO DAILY 03/17/19 Phenazopyridine HCl [Pyridium] 200 mg PO TID PRN PRN 7 Days #30 tab 04/21/19 Primary Care Physician: Patricia Becker DO [Primary Care Provider] - Test Results: Test results from this visit will be discussed in further detail at your follow- up appointment, if applicable. Please Follow Up With: Rosaura Prather MD When: 4 weeks, will need 24hr UA, call office Proposed Discharge Date: 05/05/19
[2019-05-05 09:24] VITALS: BP 109/70; BP 156/67; PULSE 74; RESP 16; TEMP 36.6; O2SAT 96
[2019-05-05 09:29] VITALS: BP 118/73; BP 156/67; PULSE 72; RESP 16; O2SAT 98
[2019-05-05 09:34] VITALS: BP 104/55; BP 156/67; PULSE 70; RESP 16; O2SAT 98
[2019-05-05 09:39] VITALS: BP 112/73; BP 156/67; PULSE 68; RESP 16; TEMP 36.7; O2SAT 97
[2019-05-05 10:31] VITALS: BP 149/94; BP 156/67; PULSE 73; RESP 16; TEMP 36.3; O2SAT 99
== END 2019-05-05 10:35 | disposition home or self-care (01) ==
LOC: SDC 07:12 → AC 07:12
PROVIDERS: Family Provider Internal Medicine; PCP Internal Medicine; Referring Provider Urology; Visit Provider Urology
PROC: 0TJ98ZZ Inspection of Ureter, Via Natural or Artificial Opening Endoscopic (ICD-10-PCS; CPT 52352; principal; 2019-05-05 08:40)
DX: T83.122A Displacement of indwelling ureteral stent, initial encounter (principal); N20.2 Calculus of kidney with calculus of ureter; L90.0 Lichen sclerosus et atrophicus; I10 Essential (primary) hypertension; J45.909 Unspecified asthma, uncomplicated; G47.30 Sleep apnea, unspecified
CPT/HCPCS: 52310; J7120

== ENCOUNTER → 2020-12-12 11:02 | Outpatient (CLI) | payer MEDICARE, OTHER, SELFPAY | PROVIDERS: PCP Internal Medicine; Referring Provider Nurse Practitioner; Visit Provider Nurse Practitioner | DX: R00.2 Palpitations (principal) | CPT/HCPCS: 93225; 93226 ==

== ENCOUNTER → 2021-01-04 16:49 | Outpatient (CLI) | payer MEDICARE, OTHER, SELFPAY ==
[2021-01-04 17:39] LABS: Albumin, Serum 3.7 g/dL (3.2-5.0); BUN 24 mg/dL (7-18); BUN/Creat Ratio 17.5 RATIO (10-20); Calcium,Total 8.9 mg/dL (8.5-10.1); Chloride 106 mmol/L (98-107); Creatinine, Serum 1.37 mg/dL (0.55-1.02); EST Glomerular Filtration Rate 40 mL/min (>60); Est Glom Filt Rate - Afr Amer 49 mL/min (>60); Glucose 85 mg/dL (74-106); Phosphorus 2.7 mg/dL (2.5-4.9); Potassium 4.1 mmol/L (3.5-5.1); Sodium Level 137 mmol/L (136-145)
== END ==
PROVIDERS: PCP Internal Medicine; Visit Provider Nurse Practitioner
DX: N18.32 Chronic kidney disease, stage 3b (principal)
CPT/HCPCS: 36415; 80069

== ENCOUNTER → 2021-01-09 11:16 | Outpatient (CLI) | payer MEDICARE, OTHER, SELFPAY ==
--- NOTE | 2021-01-09 11:17 | US_ITS ---
STUDY: RENAL ULTRASOUND - COMPLETE REASON FOR EXAM: Female, 70 years old. RENAL INSUFFICIENCY TECHNIQUE: Ultrasound evaluation of the kidneys was performed with real-time and static bryant-scale imaging. COMPARISON: None. FINDINGS: RIGHT KIDNEY: Normal location of the right kidney, which is normal in size. The right kidney measures 9 cm x 4.2 cm x 3 cm. There is diffuse thinning of the renal cortex. The renal cortex measures 0.83 cm. There is no right renal mass or cyst. There are no right renal calculi. There is no right hydronephrosis. DISTAL RIGHT URETER: There is non-visualization of the distal right ureter. There is no demonstrated right ureterovesical junction calculus. There is a visualized right ureteral jet. LEFT KIDNEY: Normal location of the left kidney, which is normal in size. The left kidney measures 12.9 cm x 4.5 cm x 6.1 cm. There is a normal cortex of the left kidney. The renal cortex measures 1.2 cm. There is no left renal mass or cyst. There are no left renal calculi. There is moderate hydronephrosis of the left kidney. DISTAL LEFT URETER: There is non-visualization of the distal left ureter. There is no demonstrated left ureterovesical junction calculus. There is a visualized left ureteral jet. BLADDER: The distended urinary bladder has a volume of 133 ml. There is a normal wall thickness of the distended urinary bladder. There is no demonstrated mass within the urinary bladder. There are no demonstrated bladder calculi. US/Kidney and Bladder IMPRESSION: Moderate degree of left hydronephrosis. Parenchymal thinning of the left renal cortex. Electronically Signed: Bishnu Almanzar MD at 13:33 EDT , Service support ,
== END ==
PROVIDERS: PCP Internal Medicine; Referring Provider Urology; Visit Provider Urology
DX: N28.9 Disorder of kidney and ureter, unspecified (principal)
CPT/HCPCS: 76770

== ENCOUNTER → 2021-01-12 13:05 | Outpatient (CLI) | payer MEDICARE, OTHER, SELFPAY ==
--- NOTE | 2021-01-12 13:22 | CT_ITS ---
STUDY: CT ABDOMEN AND PELVIS WITHOUT CONTRAST REASON FOR EXAM: Female, 70 years old. RENAL INSUFFICIENCY RADIATION DOSAGE (If Supplied By Facility): CTDIvol = ( 21.22 ) mGy, DLP = ( 1151.65 ) mGycm TECHNIQUE: Transaxial images were obtained from the dome of the diaphragm to the symphysis pubis without oral contrast, and without intravenous contrast. Sagittal and coronal images were reconstructed. Individualized dose optimization techniques were used for this CT. COMPARISON: Comparison is made with prior study dated 04/15/2015. FINDINGS: Calcified granuloma in the right lower lobe. The visualized portions of the heart are within normal limits. Normal liver. There are surgical clips in the gallbladder fossa consistent with a prior cholecystectomy. There are multiple benign calcified granulomata of the spleen. Normal pancreas. Normal bilateral adrenal glands. There is moderate cortical atrophy of the right kidney, consistent with chronic medical renal disease. There is a 6.3 cm Bard 5.6 cm cyst in the upper midportion of the left kidney. There is also evidence of a 1.7 cm cyst in the posterior aspect of the left kidney. Small nonobstructive intrarenal calculi in the lower pole of the left kidney. Incidental note is made of a left retroaortic renal vein. Normal visualized stomach. Normal small intestine. Normal colon. The patient is status post appendectomy. Normal abdominal aorta. Normal inferior vena cava. Normal retroperitoneum. Normal urinary bladder. Normal abdominal wall. There are mild degenerative changes of the visualized lumbar spine. CT/Abdomen/Pelvis without Cont IMPRESSION: 6.3 cm x 5.6 mm cyst in the upper midportion left kidney. Small parapelvic cyst. Small nonobstructive intrarenal calculi in the lower pole of the left kidney. Retroaortic left renal vein. Electronically Signed: Bishnu Almanzar MD at 13:59 EDT , Service support ,
== END ==
PROVIDERS: PCP Internal Medicine; Referring Provider Urology; Visit Provider Urology
DX: N28.9 Disorder of kidney and ureter, unspecified (principal)
CPT/HCPCS: 74176

== ENCOUNTER → 2021-04-19 09:35 | Outpatient (CLI) | payer MEDICARE, OTHER, SELFPAY ==
[2021-04-19 10:50] LABS: PTHIN 112.1 pg/mL (18.4-80.1)
[2021-04-19 10:52] LABS: Albumin, Serum 3.5 g/dL (3.2-5.0); BUN 31 mg/dL (7-18); BUN/Creat Ratio 22.1 RATIO (10-20); Calcium,Total 9.3 mg/dL (8.5-10.1); Chloride 110 mmol/L (98-107); EST Glomerular Filtration Rate 39 mL/min (>60); Est Glom Filt Rate - Afr Amer 48 mL/min (>60); Glucose 114 mg/dL (74-106); Phosphorus 2.8 mg/dL (2.5-4.9); Potassium 4.1 mmol/L (3.5-5.1); Sodium Level 140 mmol/L (136-145)
[2021-04-20 20:08] LABS: Cytoplasmic Ab (C-ANCA) <1:20 titer (Neg:<1:20)
[2021-04-20 21:14] LABS: Perinuclear Ab (P-ANCA) <1:20 titer (Neg:<1:20)
== END ==
PROVIDERS: PCP Internal Medicine; Referring Provider Internal Medicine Nephrology; Visit Provider Internal Medicine Nephrology
DX: N18.32 Chronic kidney disease, stage 3b (principal); R31.29 Other microscopic hematuria
CPT/HCPCS: 36415; 80069; 83970; 86038; 86256

== ENCOUNTER → 2021-05-18 13:10 | Outpatient (CLI) | payer MEDICARE, OTHER, SELFPAY ==
--- NOTE | 2021-05-18 13:16 | BI_ITS ---
MAMMOGRAPHY - BILATERAL SCREENING REASON FOR EXAM: Female, 71 years old. Routine annual screening examination. PERTINENT HISTORY: Non-contributory. TECHNIQUE: Digital bilateral breast earline (3D mammographic acquisition) in the CC and MLO projections. 2-D mediolateral oblique (MLO) and craniocaudad (CC) views of both breasts were obtained. CAD: Full Field Digital Mammography with Computer Added Detection was performed. COMPARISON: Comparison is made with prior abdomen examination dated 10/29/2016. FINDINGS: Breast Composition: There are scattered areas of fibroglandular density. There are now is evidence of a 1.1 cm x 1.4 cm well-defined nodule in the deep slightly inferior central aspect of the right breast at the 6 o''clock position. Correlation with ultrasound is recommended. No other significant abnormalities are identified. BI/SCRN MAMM (CAD)W/EARLINE BILAT IMPRESSION: 1.1 cm x 1.4 cm well-defined nodule in the deep slightly inferior central aspect of the right breast at the 6 o''clock position. Correlation with ultrasound is recommended. ASSESSMENT CATEGORY: BIRADS Category 0: Incomplete. Need additional imaging evaluation. A letter regarding these results will be sent to the patient by the facility within 30 days. Approximately 10% of breast cancers are not detected by mammography. A normal mammogram should not delay biopsy of a clinically suspicious abnormality. [id number] Electronically Signed: Bishnu Almanzar MD at 15:06 EDT , Service support ,
--- NOTE | 2021-05-18 13:34 | BD_ITS ---
STUDY: DUAL ENERGY X-RAY ABSORPTIOMETRY / DXA REASON FOR EXAM: Female, 71 years old. [id number]. The patient is postmenopausal. TECHNIQUE: Bone Mineral Density (BMD) measurements of lumbar spine and bilateral hips were obtained. COMPARISON: None. FINDINGS: Lumbar Spine (L1-L4): g/cm2 (0.918) / T-score (-1.2) / Z-score (1.1) Findings are suggestive of osteopenia with a low fracture risk. Left Femur Total: g/cm2 (0.883) / T-score (-0.5) / Z-score (1.1) Left Femoral Neck: g/cm2 (0.776) / T-score (-0.7) / Z-score (1.3) Right Femur Total: g/cm2 (0.933) / T-score (-0.1) / Z-score (1.5) Right Femoral Neck: g/cm2 (0.768) / T-score (-0.7) / Z-score (1.2) BD/Dexa Bone Density Study IMPRESSION: The patient is considered osteopenic as outlined below according to World Alpesh Organization (WHO) criteria with a low fracture risk. Reference Information: The T-score is the number of standard deviations above or below the standard which is normal for young adults at their peak bone mineral density. The World Health Organization (WHO) interprets the T-scores as follows: Above -1 Normal bone density Between -1 and -2.5 Osteopenia Equal to / or below -2.5 Osteoporosis As a practical clinical guideline, osteopenia may be graded as follows: Mild -1 through -1.5 Moderate -1.6 through -2.0 Severe -2.1 through -2.4 The Z-score is the number of standard deviations above or below age-matched controls. A Z-score of less than -1.5 would be considered abnormal. References: 1. NIH Osteoporosis and Related Bone Diseases www osteo.org 2. International Society for Clinical Densitometry www iscd.org 3. National Osteoporosis Foundation www nof.org Electronically Signed: Bishnu Almanzar MD at 10:08 EDT , Service support ,
== END ==
PROVIDERS: PCP Internal Medicine; Referring Provider Nurse Practitioner; Visit Provider Nurse Practitioner
DX: Z13.820 Encounter for screening for osteoporosis (principal); Z78.0 Asymptomatic menopausal state; Z12.31 Encounter for screening mammogram for malignant neoplasm of breast; N63.15 Unspecified lump in the right breast, overlapping quadrants
CPT/HCPCS: 77063; 77067; 77080

== ENCOUNTER → 2021-05-22 09:18 | Outpatient (CLI) | payer MEDICARE, OTHER, SELFPAY ==
--- NOTE | 2021-05-22 09:21 | US_ITS ---
STUDY: ULTRASOUND BREAST - RIGHT REASON FOR EXAM: Female, 71 years old. Abnormal screening mammogram. TECHNIQUE: Axial and longitudinal images of the RIGHT breast were performed with a high resolution ultrasound transducer. # OF IMAGES: 11 COMPARISON: Comparison is made with prior mammogram dated 05/18/2021. FINDINGS: RIGHT Breast: The mammographic abnormality corresponds to a 7 mm x 7 mm x 7 mm cyst at the 7 o''clock position of the breast at 3 cm from nipple. US/Breast Limited Unilateral IMPRESSION: There is a 7 mm x 7 mm x 7 mm cyst at the 7 o''clock position of the breast at 3 cm from the nipple. This corresponds to the mammographic findings. ASSESSMENT CATEGORY: BIRADS Category 2: Benign. A letter regarding these results will be sent to the patient by the facility within 30 days. Electronically Signed: Bishnu Almanzar MD at 10:36 EDT , Service support ,
== END ==
PROVIDERS: PCP Internal Medicine; Referring Provider Nurse Practitioner; Visit Provider Nurse Practitioner
DX: R92.8 Other abnormal and inconclusive findings on diagnostic imaging of breast (principal)
CPT/HCPCS: 76642

== ENCOUNTER 2021-10-18 08:50 | Observation (INO) | payer MEDICARE, OTHER, SELFPAY ==
[2021-10-18] VITALS (8 sets, daily range): BP systolic 109–157; BP diastolic 66–100; PULSE 65–82; RESP 14–16; TEMP 36.3–37.2; O2SAT 95–100; BMI 37.7; BMI 37.2
--- NOTE | 2021-10-18 09:07 | EKG12_ITS ---
Test Reason : DIZZINESS Blood Pressure : / mmHG Vent. Rate : 056 BPM Atrial Rate : 056 BPM P-R Int : 192 ms QRS Dur : 086 ms QT Int : 450 ms P-R-T Axes : 047 024 040 degrees QTc Int : 434 ms Sinus bradycardia Otherwise normal ECG Confirmed by NETTE PARSONS, PRISCILA ([id number]), editor book JAVID RUSHING ([id number]) on 10/20/2021 8:40:39 AM Referred By: SHREYA Confirmed By:PRISCILA PERDUE MD
--- NOTE | 2021-10-18 09:08 | EDS_ITS ---
HPI History of Present Illness Chief Complaint: Dizziness Detail of Chief Complaint: Dizziness that started about half an hour ago Informant: patient and spouse/S.O. Narrative Narrative: Patient presents to the emergency department with complaint of dizziness that started about 1/2-hour ago. Patient states that she was having breakfast and sitting when she got acutely dizzy where she felt like things were spinning around and round. Patient states she got clammy and vomited x1. She thinks she may have passed out for a few seconds. Patient continues to complain of spinning sensation. She denies recent illness. She denies head injury. She denies chest pain or shortness of breath. Denies headache. Patient had similar episode about 3 to 4 years ago and was attributed to vertigo. Patient states she recently came back from [place]. Prior similar symptoms: Yes PFSH PFSH Medical History (Updated 10/18/21 @ 10:[address] Francisco Javier Mcgovern DO) CKD (chronic kidney disease) stage 3, GFR 30-59 ml/min Essential hypertension Non-rheumatic mitral valve stenosis Premature ventricular contraction Pulmonary hypertension Home Medications estradiol [Estrace] 1 g VAGINALLY QWEEK 10/01/18 [History Last Taken Unknown] albuterol sulfate 1 - 2 puff INHALATION Q4H PRN PRN 03/17/19 [History Last Taken 05/05/19 06:00] bee pollen 550 mg PO DAILY 03/17/19 [History Last Taken Unknown] multivitamin with minerals 1 ea PO DAILY 03/17/19 [History Last Taken Unknown] hydrochlorothiazide 12.5 mg tablet 12.5 mg PO DAILY 01/25/21 [History Last Taken Unknown] oxybutynin chloride 10 mg tablet,extended release 24 hr 10 mg PO DAILY 01/25/21 [History Last Taken Unknown] Allergy/AdvReac Type Severity Reaction Status Date / Time poison brandee extract Allergy Rash Verified 10/18/21 08:54 poison oak extract Allergy Rash Verified 10/18/21 08:54 Family History (Updated 01/25/21 @ 09:24 by Cassie Barbosa) Mother Diabetes Hypertension Surgical History History of cholecystectomy (~2008) Social History (Updated 01/25/21 @ 09:25 by Cassie Barbosa) Smoking Status: Never smoker alcohol intake: current details: occasional substance use type: does not use caffeine: Yes Type: carbonated beverages ROS ROS ED Constitutional Constitutional ED: Reports systems reviewed and no addt'l complaints, except as documented; Denies body ache(s), change in weight or chills Eyes Eyes: Denies acute decrease in peripheral vision, change in vision, double vi gonzalez or loss of vision ENT ENT ED: Reports none; Denies ear pain, lip swelling, loss taste/smell, neck pain, otalgia or sore throat Cardiovascular Cardiovascular: Reports none; Denies abdominal pain, chest pain with activity, leg edema, lightheadedness, palpitations, rapid heart rate or syncope Respiratory/Chest Respiratory/Chest: Reports none; Denies change in mental status, dry cough, dyspnea, hemoptysis, shortness of breath at rest or shortness of breath with exertion Gastrointestinal Gastrointestinal: Reports none, nausea and vomiting; Denies abdominal pain, change in stool character, diarrhea, hematemesis, hematochezia, melena or rectal bleeding Genitourinary Genitourinary ED: Reports none; Denies abdominal discomfort, anuria, dysuria, genital pain or polyuria Musculoskeletal Musculoskeletal: Reports none; Denies arthralgias, back pain, difficulty walking, extremity pain, muscle weakness or myalgias Integumentary Reports none; Denies abscess or rash Neurologic Neurologic: Reports none and other Details: Dizziness ; Denies abnormal gait, confusion, focal weakness, frequent falls, headache(s), loss of vision, numbness, paresthesias, radicular pain, vertigo or weakness Psychiatric Psychiatric: Reports systems reviewed and no addt'l complaints, except as documented and none; Denies behavioral changes, confusion, difficulty concentrating, hallucinations, suicidal ideation, tactile hallucinations or visual hallucinations Endocrine Endocrinology: Denies none, cold intolerance, excessive sweating, fatigue or heat intolerance Hematologic/Lymphatic Hematologic/Lymphatic: Reports none; Denies anemia, easy bleeding or easy bruising Allergic/Immunologic Allergic/Immunologic ED: Denies as per HPI, none, lip swelling, mouth swelling, throat swelling, tongue swelling or hives EXAM Physical Exam Const Vital Signs: 10/18/21 08:51 10/18/21 08:56 Temperature 99.0 F Temperature Source Oral Pulse Rate 65 Respiratory Rate 14 Respiratory Effort Normal Non-Labored Respiratory Pattern Normal Blood Pressure 131/76 H Blood Pressure Mean 94 Pulse Ox 99 Oxygen Delivery Method Room Air Positive well nourished and well developed General Appearance ED: well developed and NAD HEENT Reports TM's clear and moist mucous membranes normocephalic and atraumatic; Negative for trauma or tenderness Tympanic Membrane ED: Yes TM's clear Eyes PERRL and EOMs intact bilaterally General Eye ED: Negative for pale conjunctiva or scleral icterus Neck no lymphadenopathy, supple and no JVD General: Negative for tenderness Chest Wall inspection of chest normal and palpation of chest normal Chest: Negative for tenderness Resp normal respiratory effort and clear to auscultation bilaterally Effort and Inspection: Negative for respiratory distress or pain with movement Auscultation: Negative for rhonchi, wheezes or diminished lung sounds Cardio regular rate, regular rhythm, S1 normal heart sound, S2 normal heart sound and no murmurs Peripheral Pulses: pulses 2+ throughout GI normal to inspection, nondistended, normoactive bowel sounds, soft to palpation, non-tender, non-distended and no masses Back/Spine no CVA tenderness and no thoracic nor lumbar tenderness Extremity normal to inspection General Extremety ED: Negative for edema General Extremity: Negative for edema Neuro oriented x3, CN's II-XII intact bilaterally, no sensory deficits noted and gait normal Neuro Narrative: Patient has a positive Hallpike maneuver with symptoms reproduced with head turned to the right as I laid her flat. Very subtle nysta gmus noted that fatigues quickly after about 20 seconds. Patient also symptomatic with sitting up. Finger-nose and heel prieto testing within normal limits, negative Romberg, negative for drift, fundi benign Sensorium / Orientation: awake, alert, oriented to person, oriented to place and oriented to time Motor Exam: strength 5/5 throughout and strength abnormal Psych mental status grossly normal Skin no rashes or lesions noted and no wounds MDM MDM MDM Narrative Medical decision making narrative: IV line established on arrival. Patient was given Ativan and Zofran initially followed by Antivert 25 mg p.o. Patient's lab work-up was unremarkable. Patient continues to complain of dizziness and having a hard time sitting up in bed secondary to the dizziness. I did discuss case with hospitalist evaluate for admission. I was asked by hospitalist to obtain a CT scan of the patient's brain which was ordered. Clinically I still suspect benign positional vertigo. Patient will be admitted in stable condition. Lab Data Attestation: I reviewed the patient's lab results. Labs: Laboratory Results - last 24 hr 10/18/21 10/18/21 09:15 09:15 WBC 4.4 RBC 4.09 L Hgb 11.5 L Hct 35.8 L MCV 87.5 MCH 28.1 MCHC 32.1 RDW Std Deviation 43.8 RDW Coeff of Jaye 13.8 Plt Count 236 MPV 10.4 Immature Gran % (Auto) 0.700 Neut % (Auto) 59.6 Lymph % (Auto) 30.2 [place] % (Auto) 6.1 Eos % (Auto) 2.7 Baso % (Auto) 0.7 Absolute Neuts (auto) 2.7 Absolute Lymphs (auto) 1.34 Nucleated RBC % 0 Sodium 141 Potassium 4.2 Chloride 109 H Carbon Dioxide 23.0 Anion Gap 9 BUN 33 H Creatinine 1.40 H Estim Creat Clear Calc 34.00 Est GFR (MDRD) Af Amer 48 L Est GFR (MDRD) Non-Af 39 L BUN/Creatinine Ratio 23.6 H Glucose 134 H Calcium 8.9 Troponin I High Sens 11 EKG Initial EKG: Attestation: I personally reviewed and interpreted this EKG as follows: Comments: Sinus rhythm with a ventricular rate of 56 bpm with no acute ST segment changes. Discharge Plan Triage Chief Complaint: Dizziness ED Provider: Francisco Javier Mcgovern Dx/Rx/DC Orders Clinical Impression: Dizziness, Benign paroxysmal positional vertigo Prescriptions: No Action estradiol [Estrace] 42.5 GM Cream.Appl 1 g VAGINALLY QWEEK RF: 0 multivitamin with minerals 1 EACH tablet 1 ea PO DAILY RF: 0 bee pollen 550 MG capsule 550 mg PO DAILY RF: 0 albuterol sulfate 1 INHALER inhaler 1 - 2 puff inhalation Q4H PRN PRN (Reason: Sob &/Or Wheezing) RF: 0 hydrochlorothiazide 12.5 mg tablet 12.5 mg PO DAILY RF: 0 oxybutynin chloride 10 mg tablet extended release 24hr 10 mg PO DAILY RF: 0 Primary Care Provider: Patricia Becker Referrals: Patricia Becker DO [Primary Care Provider] - Disposition Disposition: [facility]
[2021-10-18] MEDS: Ondansetron 4 MG/2 ML Vial IV ×2 (09:19→13:02)
[2021-10-18] MEDS: LORazepam 2 MG/ML Syringe 1 MG IV (09:19)
[2021-10-18 09:23] LABS: Absolute Lymphocyte Count 1.34 X10^3/uL (0.83-4.51); Absolute Neutrophil Count 2.7 X10^3/uL (2.0-7.7); Basophil# 0.03 X10^3/uL; Basophil% 0.7 % (0-1); Eosinophil# 0.12 X10^3/uL; Eosinophils% 2.7 % (0-5); Hematocrit 35.8 % (37-47); Hemoglobin 11.5 g/dL (12.0-15.0); Lymphocyte # 1.34 X10^3/ul (0.83-4.51); Lymphocyte % 30.2 % (19-41); Mean Corp Hgb Conc 32.1 g/dL (32-36); Mean Corpuscular Hgb 28.1 pg (27.0-32.0); Mean Corpuscular Volume 87.5 fL (81-99); Mean Platelet Vol. 10.4 fl (6.2-12.0); Monocyte# 0.27 X10^3/uL; Monocyte% 6.1 % (0-10); NRBC Flagged by Analyzer 0 % (0-5); Neutrophil # 2.65 X10^3/uL (2.7-7.7); Neutrophil % 59.6 % (47-70); Platelet Count 236 K/mm3 (150-450); RBC Distribution Width CV 13.8 % (11.6-14.6); RBC Distribution Width SD 43.8 fl (35.1-43.9); Red Blood Count 4.09 M/mm3 (4.2-5.4); White Blood Count 4.4 K/mm3 (4.4-11.0)
[2021-10-18 09:40] LABS: Anion Gap 9 (5-15); BUN 33 mg/dL (7-18); BUN/Creat Ratio 23.6 RATIO (10-20); Calcium,Total 8.9 mg/dL (8.5-10.1); Chloride 109 mmol/L (98-107); EST Glomerular Filtration Rate 39 mL/min (>60); Est Glom Filt Rate - Afr Amer 48 mL/min (>60); Glucose 134 mg/dL (74-106); Potassium 4.2 mmol/L (3.5-5.1); Sodium Level 141 mmol/L (136-145); Troponin-I HS 11 pg/mL (3.0-54.0)
[2021-10-18] MEDS: Meclizine HCl 25 MG Tablet PO ×2 (09:57→13:02)
[2021-10-18] MEDS: 0.9% Normal Saline 1,000 ML 150 ML IV ×2 (09:58→18:33)
--- NOTE | 2021-10-18 10:25 | HP.PCM.HOS_ITS ---
HPI - General General Date of Admission: 10/18/21 HPI Narrative ROGE COOK, is a 71 F with a PMH as outlined who presents via [facility] ED on 10/18/2021 with a complaint of dizziness. She was in a restaurant eating and she felt nauseous with dizziness and vomiting. She threw up once. She had similar episode of dizziness a few years ago and was told she had BPPV then. Dizziness and nausea gets worse with moving her head side to side. Review of systems was otherwise negative. Vitals were BP of 157/100, OH of 82m RR of 16 and pulse ox of 99% on room air. CBC was essentially unremarkable and BMP showed creatinine of 1.4 with sodium of 141 and potassium of 4.2. CT of the brain showed no acute intracranial pathology. She has been admitted to manage for vertigo likely due to BPPV. [facility] Medical History (Updated 10/18/21 @ 14:[address] Vandana Bishop MD) CKD (chronic kidney disease) stage 3, GFR 30-59 ml/min Essential hypertension Non-rheumatic mitral valve stenosis Premature ventricular contraction Pulmonary hypertension Home Medications hydrochlorothiazide 12.5 mg tablet 12.5 mg PO DAILY 01/25/21 [History Last Taken Unknown] cyanocobalamin (vitamin B-12) [Vitamin B-12] 2,500 mcg PO QMWF 10/18/21 [History Last Taken Unknown] losartan 25 mg PO DAILY 10/18/21 [History Last Taken Unknown] Allergy/AdvReac Type Severity Reaction Status Date / Time poison brandee extract Allergy Rash Verified 10/18/21 08:54 poison oak extract Allergy Rash Verified 10/18/21 08:54 Family History (Updated 01/25/21 @ 09:24 by Cassie Barbosa) Mother Diabetes Hypertension Surgical History History of cholecystectomy (~2008) Social History (Updated 01/25/21 @ 09:25 by Cassie Barbosa) Smoking Status: Never smoker alcohol intake: current details: occasional substance use type: does not use caffeine: Yes Type: carbonated beverages ROS Constitutional Constitutional: Denies anorexia, chills, fatigue or malaise Eyes Eyes: Denies change in vision ENT HEENT: Denies headache(s) Cardiovascular Cardiovascular: Reports lightheadedness; Denies chest pain, dyspnea on exertion, edema, orthopnea, palpitations, paroxysmal nocturnal dyspnea, rapid heart rate or syncope Respiratory/Chest Respiratory/Chest: Denies cough, dyspnea, shortness of breath at rest or shortness of breath with exertion Gastrointestinal Gastrointestinal: Reports nausea and vomiting; Denies abdominal pain, constipation, diarrhea or dyspepsia Genitourinary Genitourinary: Denies burning urination or dysuria Musculoskeletal Musculoskeletal: Denies arthralgias, back pain or joint pain Neurologic Neurologic: Reports dizziness; Denies confusion, focal weakness, headache(s), seizure-like activity, seizures, tingling or tremor(s) Psychiatric Psychiatric: Denies anxiety or depression Endocrine Endocrinology: Denies change in body appearance Hematologic/Lymphatic Hematologic/Lymphatic: Denies anemia Allergic/Immunologic Allergic/Immunologic: Denies asthma Vital Signs Vital Signs Vital Signs: 10/18/21 08:51 10/18/21 08:56 Temperature 99.0 F Temperature Source Oral Pulse Rate 65 Respiratory Rate 14 Respiratory Effort Normal Non-Labored Respiratory Pattern Normal Blood Pressure 131/76 H Blood Pressure Mean 94 Pulse Ox 99 Oxygen Delivery Method Room Air Weight Weight: 233 lb 11.04 oz Body Mass Index (BMI) 37.7 Physical Exam Const alert, oriented x3 and no apparent distress General Appearance: cooperative HEENT normocephalic, head/scalp atraumatic, hearing grossly normal bilaterally and moist oral mucous membranes Eyes PERRL, EOMs intact bilaterally and conjunctivae normal Neck no lymphadenopathy, supple and no JVD Resp normal respiratory effort, no retractions, no use of accessory muscles and clear to auscultation bilaterally Cardio regular rate, regular rhythm, S1 normal heart sound, S2 normal heart sound and no murmurs GI normal to inspection, nondistended, normoactive bowel sounds, soft to palpation, non-tender and non-distended Extremity normal to inspection, full ROM and no clubbing, cyanosis or edema Peripheral Pulses: Yes pulses 2+ throughout Skin no rashes or lesions noted Neuro oriented x3, CN's II-XII intact bilaterally and moves all extremities Sensorium / Orientation: awake and alert Psych affect normal Results Lab / Micro Data Result Diagrams: 10/18/21 09:15 10/18/21 09:15 Labs: Laboratory Results - last 24 hr 10/18/21 09:15: WBC 4.4, RBC 4.09 L, Hgb 11.5 L, Hct 35.8 L, MCV 87.5, MCH 28.1, MCHC 32.1, RDW Std Deviation 43.8, RDW Coeff of Jaye 13.8, Plt Count 236, MPV 10.4, Immature Gran % (Auto) 0.700, Neut % (Auto) 59.6, Lymph % (Auto) 30.2, [place] % (Auto) 6.1, Eos % (Auto) 2.7, Baso % (Auto) 0.7, Absolute Neuts (auto) 2.7, Absolute Lymphs (auto) 1.34, Nucleated RBC % 0 10/18/21 09:15: Sodium 141, Potassium 4.2, Chloride 109 H, Carbon Dioxide 23.0, Anion Gap 9, BUN 33 H, Creatinine 1.40 H, Estim Creat Clear Calc 34.00, Est GFR (MDRD) Af Amer 48 L, Est GFR (MDRD) Non-Af 39 L, BUN/Creatinine Ratio 23.6 H, Glucose 134 H, Calcium 8.9, Troponin I High Sens 11 Assessment & Plan Assessment/Plan (1) Dizziness: (2) Benign paroxysmal positional vertigo: (3) Vertigo: PLAN: #Vertigo, likely due to BPPV * she has had similar episodes of vertigo before, and was diagnosed with what sounds like BPPV then * admit to pcu with telemetry * hydrate gently with IVF * PO meclizine * PT/OT consult. Fall precautions * Considering her previous history of such similar episodes, I do not think that this is concerning for stroke and so we will hold off on any stroke work-up for now. * Fall precautions. * Check orthostatics. * #Hypertension: On hydrochlorothiazide and losartan. DVT prophylaxis: lovenox Code status: full code * Patient counseled extensively about different types of CODE STATUS including full code, DNR CCA and DNR CCA. Patient elects to be full code. * Total [id number] time 17 minutes. Charges/Coding Visit Charges OBSV E&M: 25615 Initial observation care L2 Procedures Hospitalists Procedures: 13105 Advncd Care Plan 30 Min
--- NOTE | 2021-10-18 10:37 | NURSING ---
MED SURG KORAM DIZZINESS, BPV
--- NOTE | 2021-10-18 10:50 | CT_ITS ---
STUDY: CT BRAIN WITHOUT CONTRAST REASON FOR EXAM: Female, 71 years old. Vertigo RADIATION DOSAGE (If Supplied By Facility): CTDIvol = ( 44.99 ) mGy, DLP = ( 762.36 ) mGycm TECHNIQUE: Transaxial CT imaging of the brain was performed without administration of intravenous contrast material. Individualized dose optimization techniques were used for this CT. COMPARISON: Comparison is made with prior study dated 09/30/2018. FINDINGS: Normal soft tissue structures. Normal calvarium. Normal size ventricles and extra-axial spaces for the patient''s age. Normal white matter tracts of the cerebral hemispheres. Normal basal ganglia and thalami. Normal brainstem. Normal cerebellum. There is no intracranial hemorrhage. There are no findings of an acute ischemic infarction. Normal visualized paranasal sinuses. CT/Brain/Head without Contrast IMPRESSION: Normal unenhanced CT scan of the brain. Electronically Signed: Bishnu Almanzar MD at 11:12 EDT ,
--- NOTE | 2021-10-18 11:00 | ED.RN ---
rn unable to obtain orthostatics at this time. Pt states unable to change positions without vomiting. dr almeida notified
--- NOTE | 2021-10-18 11:27 | CM.ED ---
RN CM Assessment Introduced role of RN CM to patient and Ji at bedside.? Patient is alert, oriented and able?to participate in RN CM Assessment. ?Care providers, pharmacy, and demographics verified. Admit Dx: OBS for Dizziness Re-Admit: No Barriers/Issues: None PCP: Patricia Becker Specialists: Nephro- Rhett Gonzales- has 1st appt on 10.25.21 with Vellanyolanda to check what is causing kidney function to be elevated Preferred Pharmacy: [facility] Insurance: [facility] A/B, MMO Rx Benefit:?Yes LNOK: Ji Sesay LW/HPOA: Has ADs completed and HPOA- Ji Sesay. Aware not on file at [facility]. Living Arrangements:? Lives with in a mobile home, 3 steps with railings on both sides ADL?s: Independent with ambulation and ADLs Transportation: Both patient and drive. will transport upon hospital DC. DME: CPAP- [employer] HHC: None SNF: None Goal: Home and does not think will have any needs concerns or issues with going home. Aware RNCM will continue to follow should any needs arise. DC PLAN: Home with no anticipated needs identified at this time. MAYELA Rdz
[2021-10-19] MEDS: 0.9% Normal Saline 1,000 ML 150 ML IV ×2 (01:29→08:02)
[2021-10-19 02:00] VITALS: BP 116/56; PULSE 66; RESP 16; TEMP 36.8; O2SAT 96
[2021-10-19 02:38] VITALS: PULSE 70
[2021-10-19 06:12] LABS: Absolute Lymphocyte Count 1.52 X10^3/uL (0.83-4.51); Absolute Neutrophil Count 2.6 X10^3/uL (2.0-7.7); Basophil# 0.02 X10^3/uL; Basophil% 0.4 % (0-1); Eosinophil# 0.11 X10^3/uL; Eosinophils% 2.4 % (0-5); Hematocrit 32.1 % (37-47); Hemoglobin 10.6 g/dL (12.0-15.0); Lymphocyte # 1.52 X10^3/ul (0.83-4.51); Mean Corpuscular Hgb 28.7 pg (27.0-32.0); Mean Platelet Vol. 10.2 fl (6.2-12.0); Monocyte# 0.31 X10^3/uL; Monocyte% 6.7 % (0-10); NRBC Flagged by Analyzer 0 % (0-5); Neutrophil # 2.64 X10^3/uL (2.7-7.7); Neutrophil % 57.3 % (47-70); Platelet Count 198 K/mm3 (150-450); RBC Distribution Width CV 13.8 % (11.6-14.6); RBC Distribution Width SD 44.1 fl (35.1-43.9); Red Blood Count 3.69 M/mm3 (4.2-5.4); White Blood Count 4.6 K/mm3 (4.4-11.0)
[2021-10-19 06:34] LABS: Anion Gap 4 (5-15); BUN 30 mg/dL (7-18); BUN/Creat Ratio 21.4 RATIO (10-20); Calcium,Total 8.1 mg/dL (8.5-10.1); Chloride 116 mmol/L (98-107); EST Glomerular Filtration Rate 39 mL/min (>60); Est Glom Filt Rate - Afr Amer 48 mL/min (>60); Glucose 103 mg/dL (74-106); Potassium 4.3 mmol/L (3.5-5.1); Sodium Level 142 mmol/L (136-145)
[2021-10-19 07:00] VITALS: PULSE 59
[2021-10-19 07:57] VITALS: BP 125/54; PULSE 62; RESP 16; TEMP 36.6; O2SAT 98
[2021-10-19 09:40] VITALS: BP 122/73; BP 151/77; BP 152/82; PULSE 70; PULSE 72; PULSE 82
[2021-10-19] MEDS: hydroCHLOROthiazide 12.5mg 12.5 MG PO (09:49)
[2021-10-19] MEDS: Losartan Potassium 25 MG Tablet PO (09:49)
--- NOTE | 2021-10-19 10:26 | DS.PCM_ITS ---
Providers Date of Admission: 10/18/21 Primary Care Physician: Dr. Patricia Becker DO Reason For Visit: DIZZINESS Diagnosis Discharge Diagnosis (1) Dizziness: Status: Acute Code(s): R42 - Dizziness and giddiness (2) Benign paroxysmal positional vertigo: Status: Acute Code(s): H81.10 - Benign paroxysmal vertigo, unspecified ear (3) Vertigo: Status: Acute Code(s): R42 - Dizziness and giddiness Medications at Discharge Home Medications hydrochlorothiazide 12.5 mg tablet 12.5 mg PO DAILY 01/25/21 cyanocobalamin (vitamin B-12) [Vitamin B-12] 2,500 mcg PO QMWF 10/18/21 losartan 25 mg PO DAILY 10/18/21 meclizine 25 mg PO TID PRN #30 tab 10/19/21 Hospital Course Operations None Procedures None Summary of Care Provided Minutes Spent on Discharge: 35 Hospital Course: ROGE COOK, is a 71 F with a PMH as outlined who presents via [facility] ED on 10/18/2021 with a complaint of dizziness. She was in a restaurant eating and she felt nauseous with dizziness and vomiting. She threw up once. She had similar episode of dizziness a few years ago and was told she had BPPV then. Dizziness and nausea gets worse with moving her head side to side. Review of systems was otherwise negative. Vitals were BP of 157/100, MT of 82m RR of 16 and pulse ox of 99% on room air. CBC was essentially unremarkable and BMP showed creatinine of 1.4 with sodium of 141 and potassium of 4.2. CT of the brain showed no acute intracranial pathology. She was admitted to manage for vertigo likely due to BPPV. She was gently hydrated with IV fluids and started on meclizine. PT OT was also consulted. Her symptoms completely resolved and she felt much better by the next day. She remained stable and was discharged home on 10/19/2021 with a prescription for p.o. meclizine and all so with a referral to vestibular therapy. She is follow-up with her primary care doctor in 1 to 2 weeks. Patient was seen and examined prior to discharge. She had no active complaints and felt well. Review of systems otherwise negative. Labs and vitals reviewed. Medication reviewed and reconciled. Physical Exam Const alert, oriented x3 and no apparent distress General Appearance: cooperative, comfortable and well kempt Orientation / Consciousness: awake, oriented to person, oriented to place and oriented to time HEENT normocephalic, head/scalp atraumatic, hearing grossly normal bilaterally and moist oral mucous membranes Eyes PERRL, EOMs intact bilaterally and conjunctivae normal Neck no lymphadenopathy, supple and no JVD Resp normal respiratory effort, no retractions, no use of accessory muscles and clear to auscultation bilaterally Cardio regular rate, regular rhythm, S1 normal heart sound, S2 normal heart sound and no murmurs GI normal to inspection, nondistended, normoactive bowel sounds, soft to palpation, non-tender and non-distended Extremity normal to inspection, full ROM and no clubbing, cyanosis or edema Skin no rashes or lesions noted Neuro oriented x3, CN's II-XII intact bilaterally and moves all extremities Sensorium / Orientation: awake and alert Psych affect normal Weight / BMI Weight Weight: 230 lb 9.656 oz Body Mass Index (BMI) 37.2 ABG / Lab / Microbiology Data Result Diagrams: 10/19/21 05:54 10/19/21 05:54 Laboratory: Laboratory Results - last 24 hr 10/19/21 05:54: WBC 4.6, RBC 3.69 L, Hgb 10.6 L, Hct 32.1 L, MCV 87.0, MCH 28.7, MCHC 33.0, RDW Std Deviation 44.1 H, RDW Coeff of Jaye 13.8, Plt Count 198, MPV 1 0.2, Immature Gran % (Auto) 0.200, Neut % (Auto) 57.3, Lymph % (Auto) 33.0, [place] % (Auto) 6.7, Eos % (Auto) 2.4, Baso % (Auto) 0.4, Absolute Neuts (auto) 2.6, Absolute Lymphs (auto) 1.52, Nucleated RBC % 0 10/19/21 05:54: Sodium 142, Potassium 4.3, Chloride 116 H, Carbon Dioxide 22.0, Anion Gap 4 L, BUN 30 H, Creatinine 1.40 H, Estim Creat Clear Calc 34.00, Est GFR (MDRD) Af Amer 48 L, Est GFR (MDRD) Non-Af 39 L, BUN/Creatinine Ratio 21.4 H , Glucose 103, Calcium 8.1 L Radiography Diagnostic Testing: Radiology Impression Brain CT 10/18/21 10:50 IMPRESSION: Normal unenhanced CT scan of the brain. Electronically Signed: Bishnu Almanzar MD at 11:12 EDT , D/C Instructions Discharge Diet: Low fat / Low cholesterol Discharge Activity: Return to Normal Activity Weight Bearing Status: Weight bearing as tolerated Call your doctor if you observe: Fever of 101 or Higher, Shortness of breath, Dizziness, Swelling in the ankles and Increased palpitations (irregular heartbeat) Meaningful Use Info Meaningful Use Diagnoses (Choose all that apply): None applicable Discharge Plan Admission Admit Date/Time: 10/18/21 10:28 Primary Reason for Your Visit: vertigo Attending Provider: Vandana Bishop Primary Care Provider: Patricia Becker Instructions Patient Instructions: Dizziness Vertigo and Balance ..., BPPV Additional Instructions / Restrictions: follow up with PT/OT for vestibular therapy on outpatient basis Discharge Orders/Prescriptions Prescriptions: New meclizine 25 mg tablet 25 mg PO TID PRN (Reason: dizziness) Qty: 30 RF: 2 Continued cyanocobalamin (vitamin B-12) [Vitamin B-12] 2,500 mcg tablet, sublingual 2,500 mcg PO QMWF RF: 0 losartan 25 mg tablet 25 mg PO DAILY RF: 0 hydrochlorothiazide 12.5 mg tablet 12.5 mg PO DAILY RF: 0 Referrals / Follow Up: Patricia Becker DO [Primary Care Provider] - Within 2 Weeks Disposition Disposition (needs filled in before D/C Order can be placed): Home, Self Care Charges/Coding Visit Charges OBSV E&M: 65166 Observation care discharge
--- NOTE | 2021-10-19 11:06 | CASEMGMT ---
Per Dr. Bishop, pt provided with order for OP vestibular therapy. Pt does not want order faxed at this time as she will decide if she wants to do it once home. SKINNER form to pt, explanation done-voices understanding, and signs SKINNER form at this time. Pt voices no further questions/concerns/needs. SSttimothy CHRISTIAN CM
[2021-10-19 11:59] VITALS: BP 122/73; PULSE 70; RESP 16; TEMP 36.6; O2SAT 98
== END 2021-10-19 10:37 | disposition home or self-care (01) ==
LOC: ED 10:46 → PCU 11:13
PROVIDERS: Admitting Provider Student in an Organized Health Care Education/Training Program; Emergency Provider Emergency Medicine; PCP Internal Medicine; Visit Provider Student in an Organized Health Care Education/Training Program
DX: H81.10 Benign paroxysmal vertigo, unspecified ear (principal); I27.20 Pulmonary hypertension, unspecified; N18.30 Chronic kidney disease, stage 3 unspecified; I12.9 Hypertensive chronic kidney disease with stage 1 through stage 4 chronic kidney disease, or unspecified chronic kidney disease; Z79.899 Other long term (current) drug therapy
CPT/HCPCS: 36415; 70450; 80048; 84484; 85025; 93005; 96361; 96374; 96375; 96376; 97802; 99218; 99284; J7030; A4216; G0378; J2405

== ENCOUNTER 2021-10-25 13:54 | Outpatient (CLI) | payer MEDICARE, OTHER, SELFPAY ==
[2021-10-25 14:59] LABS: EXAGEN MAILED SPECIMEN
[2021-10-25 15:12] LABS: Erythrocyte Sedimentation Rate 34 mm/hr (0-30)
[2021-10-25 15:13] LABS: Prothrombin Time (Protime)PT. 12.9 SECONDS (11.7-14.9)
[2021-10-25 15:14] LABS: Partial Thromboplast Time 29.2 Seconds (24.1-36.2)
[2021-10-25 15:15] LABS: Absolute Lymphocyte Count 1.39 X10^3/uL (0.83-4.51); Absolute Neutrophil Count 3.8 X10^3/uL (2.0-7.7); Basophil# 0.02 X10^3/uL; Basophil% 0.3 % (0-1); Eosinophil# 0.18 X10^3/uL; Eosinophils% 3.1 % (0-5); Hemoglobin 12.3 g/dL (12.0-15.0); Lymphocyte # 1.39 X10^3/ul (0.83-4.51); Mean Corp Hgb Conc 33.2 g/dL (32-36); Mean Corpuscular Hgb 28.9 pg (27.0-32.0); Mean Corpuscular Volume 87.1 fL (81-99); Mean Platelet Vol. 10.6 fl (6.2-12.0); Monocyte# 0.37 X10^3/uL; Monocyte% 6.4 % (0-10); NRBC Flagged by Analyzer 0 % (0-5); Neutrophil # 3.79 X10^3/uL (2.7-7.7); Neutrophil % 65.5 % (47-70); Platelet Count 244 K/mm3 (150-450); RBC Distribution Width CV 13.6 % (11.6-14.6); RBC Distribution Width SD 43.6 fl (35.1-43.9); Red Blood Count 4.25 M/mm3 (4.2-5.4); White Blood Count 5.8 K/mm3 (4.4-11.0)
[2021-10-25 15:35] LABS: AST(SGOT) 39 U/L (15-37); Alanine Aminotransfer ALT/SGPT 108 U/L (13-56); Albumin, Serum 3.7 g/dL (3.2-5.0); Alkaline Phosphatase 107 U/L (45-117); Anion Gap 7 (5-15); BUN 36 mg/dL (7-18); BUN/Creat Ratio 26.3 RATIO (10-20); Calcium,Total 9.1 mg/dL (8.5-10.1); Chloride 108 mmol/L (98-107); Creatinine, Serum 1.37 mg/dL (0.55-1.02); EST Glomerular Filtration Rate 40 mL/min (>60); Est Glom Filt Rate - Afr Amer 49 mL/min (>60); Globulin 3.8 g/dL (2.2-4.2); Glucose 91 mg/dL (74-106); Protein, Total 7.5 g/dL (6.4-8.2); Sodium Level 140 mmol/L (136-145)
[2021-10-25 17:47] LABS: Color, Urine Yellow (Yellow); Glucose, Dipstick Normal (Normal); Ketone-Dipstick Negative (Negative); Leukocyte Esterase-Dipstick Negative /ul (Negative); Nitrite-Dipstick Negative (Negative); Occult Blood-Urine 25 /ul (Negative); Protein-Dipstick Negative (Negative); Urine Bilirubin Dipstick Negative (Negative); Urine Clarity Clear (Clear); Urine Urobilinogen Normal (Normal)
[2021-10-25 18:12] LABS: Protein, Urine (Random) 8.2 mg/dL (<11.9); Protein:Creat Ratio 91 mg/g CRE (0-200)
[2021-10-28 07:08] LABS: Dilute Prothrombin Time (dPT) 32.4 sec (0.0-47.6); Dilute Russell Viper Venom 32.6 sec (0.0-47.0); Hexagonal Phase Phospholipid 4 sec (0-11); PTT-LA 34.4 sec (0.0-51.9); Thrombin Time 17.9 sec (0.0-23.0); dPT Confirm Ratio 1.13 Ratio (0.00-1.34)
[2021-10-28 07:56] LABS: Interpretation Comment: (.); Thrombin Time 17.2 sec (0.0-23.0)
== END 2021-10-25 23:59 | disposition home or self-care (01) ==
LOC: MTLAB 13:56
PROVIDERS: PCP Internal Medicine; Referring Provider Internal Medicine Rheumatology; Visit Provider Internal Medicine Rheumatology
DX: R76.8 Other specified abnormal immunological findings in serum (principal); I27.20 Pulmonary hypertension, unspecified; I12.9 Hypertensive chronic kidney disease with stage 1 through stage 4 chronic kidney disease, or unspecified chronic kidney disease; N18.9 Chronic kidney disease, unspecified; N26.1 Atrophy of kidney (terminal); N20.0 Calculus of kidney; H81.10 Benign paroxysmal vertigo, unspecified ear; N90.4 Leukoplakia of vulva; R31.29 Other microscopic hematuria; G47.33 Obstructive sleep apnea (adult) (pediatric)
CPT/HCPCS: 36415; 80053; 81002; 82570; 84156; 85025; 85598; 85610; 85652; 85670; 85730; 86140

== ENCOUNTER → 2021-11-22 | Outpatient (CLI) | payer MEDICARE, OTHER, SELFPAY ==
[2021-11-22 10:08] LABS: Albumin, Serum 3.4 g/dL (3.2-5.0); BUN 34 mg/dL (7-18); BUN/Creat Ratio 24.5 RATIO (10-20); Calcium,Total 8.7 mg/dL (8.5-10.1); Chloride 111 mmol/L (98-107); Creatinine, Serum 1.39 mg/dL (0.55-1.02); EST Glomerular Filtration Rate 40 mL/min (>60); Est Glom Filt Rate - Afr Amer 48 mL/min (>60); Glucose 105 mg/dL (74-106); Phosphorus 2.8 mg/dL (2.5-4.9); Potassium 4.1 mmol/L (3.5-5.1); Sodium Level 142 mmol/L (136-145)
[2021-11-23 12:18] LABS: Complement C3 133 mg/dL (82-167)
== END | disposition home or self-care (01) ==
LOC: LAB 09:01
PROVIDERS: PCP Internal Medicine; Visit Provider Internal Medicine Nephrology
DX: N18.32 Chronic kidney disease, stage 3b (principal); R76.8 Other specified abnormal immunological findings in serum
CPT/HCPCS: 36415; 80069; 86160

== ENCOUNTER → 2021-11-23 | Outpatient (CLI) | payer MEDICARE, OTHER, SELFPAY ==
--- NOTE | 2021-11-23 12:40 | US_ITS ---
STUDY: RENAL ULTRASOUND - COMPLETE REASON FOR EXAM: Female, 71 years old. CYST OF KIDNEY TECHNIQUE: Ultrasound evaluation of the kidneys was performed with real-time and static bryant-scale imaging. COMPARISON: ct Jan 12 2021 1:21pm FINDINGS: RIGHT KIDNEY: with mild renal atrophy. The right kidney measures 8x4.7 cm. There is a normal cortex of the right kidney. The renal cortex measures 1 cm. There is no right renal mass or cyst. There are no right renal calculi. There is no right hydronephrosis. DISTAL RIGHT URETER: There is non-visualization of the distal right ureter. There is no demonstrated right ureterovesical junction calculus. There is a visualized right ureteral jet. LEFT KIDNEY: Normal location of the left kidney, which is normal in size. The left kidney measures 13x7.1 cm. There is a normal cortex of the left kidney. The renal cortex measures 1.4 cm. There is left renal 56 mm and 19 mm cyst. There are no left renal calculi. There is no left hydronephrosis. DISTAL LEFT URETER: There is non-visualization of the distal left ureter. There is no demonstrated left ureterovesical junction calculus. There is a visualized left ureteral jet. AORTA: There is obscuration of the abdominal aorta by overlying bowel gas I.V.C.: The IVC is obscured. BLADDER: The distended urinary bladder has a volume of 153 ml. There is a normal wall thickness of the distended urinary bladder. There is no demonstrated mass within the urinary bladder. There are no demonstrated bladder calculi. US/Kidney and Bladder IMPRESSION: Atrophic right kidney. There is hypoechoic foci of the left kidney. These are consistent for cysts. No follow up required. Electronically Signed: Ozzy Barajas MD at 15:37 EDT ,
== END | disposition home or self-care (01) ==
LOC: US 12:39
PROVIDERS: PCP Internal Medicine; Referring Provider Internal Medicine Nephrology; Visit Provider Internal Medicine Nephrology
DX: N28.1 Cyst of kidney, acquired (principal)
CPT/HCPCS: 76770

== ENCOUNTER → 2022-02-07 | Outpatient (CLI) | payer MEDICARE, OTHER, SELFPAY ==
[2022-02-07 10:34] LABS: Erythrocyte Sedimentation Rate 25 mm/hr (0-30)
[2022-02-07 10:36] LABS: Absolute Lymphocyte Count 1.29 X10^3/uL (0.83-4.51); Absolute Neutrophil Count 3.3 X10^3/uL (2.0-7.7); Basophil# 0.02 X10^3/uL; Basophil% 0.4 % (0-1); Eosinophil# 0.16 X10^3/uL; Eosinophils% 3.1 % (0-5); Hematocrit 37.7 % (37-47); Hemoglobin 12.1 g/dL (12.0-15.0); Lymphocyte # 1.29 X10^3/ul (0.83-4.51); Lymphocyte % 25.2 % (19-41); Mean Corp Hgb Conc 32.1 g/dL (32-36); Mean Corpuscular Hgb 28.1 pg (27.0-32.0); Mean Corpuscular Volume 87.5 fL (81-99); Mean Platelet Vol. 10.3 fl (6.2-12.0); Monocyte# 0.32 X10^3/uL; Monocyte% 6.3 % (0-10); NRBC Flagged by Analyzer 0 % (0-5); Neutrophil # 3.32 X10^3/uL (2.7-7.7); Neutrophil % 64.8 % (47-70); Platelet Count 221 K/mm3 (150-450); RBC Distribution Width CV 13.4 % (11.6-14.6); RBC Distribution Width SD 43.2 fl (35.1-43.9); Red Blood Count 4.31 M/mm3 (4.2-5.4); White Blood Count 5.1 K/mm3 (4.4-11.0)
[2022-02-07 11:01] LABS: AST(SGOT) 21 U/L (15-37); Alanine Aminotransfer ALT/SGPT 28 U/L (13-56); Albumin, Serum 3.6 g/dL (3.2-5.0); Alkaline Phosphatase 94 U/L (45-117); Anion Gap 6 (5-15); BUN 25 mg/dL (7-18); BUN/Creat Ratio 15.2 RATIO (10-20); Calcium,Total 9.4 mg/dL (8.5-10.1); Chloride 109 mmol/L (98-107); Creatinine, Serum 1.64 mg/dL (0.55-1.02); EST Glomerular Filtration Rate 33 mL/min (>60); Est Glom Filt Rate - Afr Amer 40 mL/min (>60); Globulin 3.7 g/dL (2.2-4.2); Glucose 104 mg/dL (74-106); Potassium 4.2 mmol/L (3.5-5.1); Protein, Total 7.3 g/dL (6.4-8.2); Sodium Level 140 mmol/L (136-145)
== END | disposition home or self-care (01) ==
LOC: MTLAB 09:36
PROVIDERS: PCP Internal Medicine; Referring Provider Internal Medicine Rheumatology; Visit Provider Internal Medicine Rheumatology
DX: R76.8 Other specified abnormal immunological findings in serum (principal); I27.20 Pulmonary hypertension, unspecified; I12.9 Hypertensive chronic kidney disease with stage 1 through stage 4 chronic kidney disease, or unspecified chronic kidney disease; N18.9 Chronic kidney disease, unspecified; N20.0 Calculus of kidney; H81.10 Benign paroxysmal vertigo, unspecified ear; N90.4 Leukoplakia of vulva; R31.29 Other microscopic hematuria; G47.33 Obstructive sleep apnea (adult) (pediatric)
CPT/HCPCS: 36415; 80053; 85025; 85652; 86140

== ENCOUNTER → 2023-07-15 | Outpatient (CLI) | payer MEDICARE, OTHER, SELFPAY ==
[2023-07-15 12:45] LABS: Erythrocyte Sedimentation Rate 53 mm/hr (0-30)
[2023-07-15 12:47] LABS: Absolute Lymphocyte Count 1.36 X10^3/uL (0.83-4.51); Absolute Neutrophil Count 6.5 X10^3/uL (2.0-7.7); Basophil# 0.02 X10^3/uL; Basophil% 0.2 % (0-1); Eosinophil# 0.23 X10^3/uL; Eosinophils% 2.6 % (0-5); Hematocrit 35.2 % (37-47); Hemoglobin 11.4 g/dL (12.0-15.0); Lymphocyte # 1.36 X10^3/ul (0.83-4.51); Lymphocyte % 15.6 % (19-41); Mean Corp Hgb Conc 32.4 g/dL (32-36); Mean Corpuscular Hgb 28.6 pg (27.0-32.0); Mean Corpuscular Volume 88.4 fL (81-99); Mean Platelet Vol. 10.2 fl (6.2-12.0); Monocyte# 0.53 X10^3/uL; Monocyte% 6.1 % (0-10); NRBC Flagged by Analyzer 0 % (0-5); Neutrophil # 6.52 X10^3/uL (2.7-7.7); Platelet Count 309 K/mm3 (150-450); RBC Distribution Width SD 45.3 fl (35.1-43.9); Red Blood Count 3.98 M/mm3 (4.2-5.4); White Blood Count 8.7 K/mm3 (4.4-11.0)
[2023-07-15 12:51] LABS: Anion Gap 8 (5-15); BUN 37 mg/dL (7-18); BUN/Creat Ratio 19.9 RATIO (10-20); Calcium,Total 8.9 mg/dL (8.5-10.1); Chloride 111 mmol/L (98-107); Creatinine, Serum 1.86 mg/dL (0.55-1.02); EST Glomerular Filtration Rate 28 mL/min (>60); Est Glom Filt Rate - Afr Amer 34 mL/min (>60); Glucose 102 mg/dL (74-106); Potassium 5.1 mmol/L (3.5-5.1); Sodium Level 142 mmol/L (136-145); Uric Acid 8.3 mg/dL (2.6-6.0)
== END | disposition home or self-care (01) ==
LOC: LABSPEC 12:10
PROVIDERS: PCP Internal Medicine; Referring Provider Nurse Practitioner Family; Visit Provider Nurse Practitioner Family
DX: M10.9 Gout, unspecified (principal)
CPT/HCPCS: 80048; 84550; 85025; 85652; 86140

== ENCOUNTER 2023-08-07 17:48 | Observation (INO) | payer MEDICARE, OTHER, SELFPAY ==
[2023-08-07 17:49] VITALS: BP 123/95; PULSE 90; RESP 16; TEMP 36.6; O2SAT 20; BMI 40.4
[2023-08-07 17:56] VITALS: BMI 40.2
--- NOTE | 2023-08-07 18:15 | EKG12_ITS ---
Test Reason : NEURO Blood Pressure : / mmHG Vent. Rate : 079 BPM Atrial Rate : 079 BPM P-R Int : 166 ms QRS Dur : 076 ms QT Int : 356 ms P-R-T Axes : 025 004 012 degrees QTc Int : 408 ms Normal sinus rhythm Nonspecific ST abnormality Abnormal ECG Confirmed by LOVE PARSONS, TRU ([id number]), online content editor JAVID RUSHING ([id number]) on 08/09/2023 7:01:01 AM Referred By: Confirmed By:TRU ALEMAN MD
--- NOTE | 2023-08-07 18:15 | CT_ITS ---
We are attempting to reach an attending provider to discuss findings. An addendum with communication details will be sent when the communication is complete. INDICATION: Neuro deficit, acute, stroke suspected EXAMINATION: CT BRAIN - CT Head Stroke Protocol W/O Contrast Injection TECHNIQUE: Multiple axial images were obtained of the head without intravenous contrast. A radiation dose optimization technique was used for this scan. IV Contrast dosage and agent: None. COMPARISON: 10/18/2021. FINDINGS: BRAIN PARENCHYMA: No intra- or extra-axial hemorrhage. No evidence of acute infarct. No intracranial mass or mass effect. There is preservation of the carrillo/white matter interface. Posterior fossa structures are unremarkable. CSF SPACES: Appropriate for age. No hydrocephalus. Basal cisterns are patent. CALVARIUM, SKULL BASE, PARANASAL SINUSES AND MASTOID AIR CELLS: Clear. No discrete lytic or blastic abnormalities. ORBITS: Both globes, extraocular muscles, optic nerves and retrobulbar fat appear unremarkable. CT/Brain/Head without Contrast IMPRESSION: Normal Brain CT without contrast. Electronically Signed: Brenda Lee MD at 19:18 EST ,
[2023-08-07 18:36] LABS: Absolute Lymphocyte Count 2.22 X10^3/uL (0.83-4.51); Absolute Neutrophil Count 4.7 X10^3/uL (2.0-7.7); Basophil# 0.04 X10^3/uL; Basophil% 0.5 % (0-1); Eosinophil# 0.23 X10^3/uL; Hemoglobin 11.8 g/dL (12.0-15.0); Lymphocyte # 2.22 X10^3/ul (0.83-4.51); Lymphocyte % 28.8 % (19-41); Mean Corp Hgb Conc 31.1 g/dL (32-36); Mean Corpuscular Hgb 27.8 pg (27.0-32.0); Mean Corpuscular Volume 89.4 fL (81-99); Monocyte# 0.48 X10^3/uL; Monocyte% 6.2 % (0-10); NRBC Flagged by Analyzer 0 % (0-5); Neutrophil # 4.72 X10^3/uL (2.7-7.7); Neutrophil % 61.1 % (47-70); Platelet Count 304 K/mm3 (150-450); RBC Distribution Width CV 13.8 % (11.6-14.6); RBC Distribution Width SD 45.1 fl (35.1-43.9); Red Blood Count 4.25 M/mm3 (4.2-5.4); White Blood Count 7.7 K/mm3 (4.4-11.0)
--- OUTSIDE RECORDS SUMMARY | 2023-08-07 18:49 | XMS RPT_ITS | CCD ---
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 Name Role Phone Troy Ovalle Unavailable Unavailable Makayla Agustin Unavailable Unavailable Troy Ovalle Unavailable Unavailable Troy Ovalle Unavailable Unavailable Makayla Agustin Unavailable Unavailable Troy Ovalle Unavailable Unavailable Makayla Agustin Unavailable Unavailable Troy Ovalle Unavailable Unavailable Patricia Becker Unavailable Makayla Agustin Unavailable Danielle Shah Unavailable Unavailable Senia Coe Unavailable Unavailable Unavailable Unavailable Paxton Contreras Unavailable Gravius, Shaye Unavailable Unavailable Unavailable Unavailable Jannette Dooley Unavailable Unavailable Gravius, Shaye Unavailable Unavailable MessengerSenia Unavailable Unavailable Unavailable Unavailable Patricia Becker DO Unavailable Paxton Contreras Unavailable Makayla Agustin MD Unavailable Jannette Dooley LPN Unavailable Unavailable Gravius MANAGER COSMETICS, Shaye Unavailable Unavailable Messenger RN, Senia Unavailable Unavailable Unavailable Unavailable Guzman ELIAS, Yola Barney Unavailable Elijah Chaves LPN Unavailable Unavailable Unavailable Unavailable Jp PARSONS, Darrian Kingston Unavailable Edwina Braden LPN Unavailable Unavailable Nani Gonzales Unavailable Rosita HANNA Patricia Unavailable Makayla Agustin MD Unavailable Yola Hinds Unavailable Yola Hinds Unavailable Priscilla ALLEN, Meli Unavailable Unavailable Deedee Cruz CNP Unavailable [phone] Lud[address] HANNA , Dr. Donovan Dolan Unavailab le Patricia Becker DO Attending Unavailable Makayla Agustin MD Referring Unavailable Patricia Becker DO Consulting Unavailable [facility] Unavailable Unavailable Medications Current Medications Medication Drug Class(es) Dates Sig (Normalized) Sig (Original) losartan potassium 25 mg oral tablet (20 sources) Angiotensin 2 Receptor Percy Start: 05-13-2023 take 1 tablet by mouth once daily losartan 25 mg oral tablet 1 (one) Tablet daily for 0 days Quantity: 30 {Tablet} Refills: 6 Ordered: 13-May-2023 Patricia Becker DO, DO, Kathleen Start : 13-May-2023 Active Completed/Discontinued Medications Medication Drug Class(es) Dates Sig (Normalized) Sig (Original) [id number] 200 actuat albuterol 0.09 mg/actuat metered dose inhaler (20 sources) beta2-Adrenergic Agonist Start: 08-06-2017 End: 10-08-2018 take 2 puff(s) by inhalation three times daily ProAir HFA 108 (90 Base) MCG/ACT Inhalation Aerosol Solution 2 (two) Puff tid for 0 days Quantity: 1 {Inhaler} Refills: 0 Ordered: 08-Oct-2018 Senia Coe RN Start : 06-Aug-2017 End : 08-Oct-2018 Inactive Problems Active Problems Problem Classification Problem Date Documented Da te Episodic/Chronic Abdominal pain (20 sources) Flank pain; Translations: [Flank pain] Resolved: 04-14-2015 04-14-2015 Episodic Anxiety disorders (12 sources) Acute stress disorder; Translations: [Stress reaction] 04-29-2023 Chronic Cardiac dysrhythmias (20 sources) Palpitations; Translations: [Palpitation] 12-09-2020 Episodic Chronic kidney disease (20 sources) Chronic kidney disease stage 3; Translations: [CKD stage G3b/A1, GFR 30-44 and albumin creatinine ratio <30 mg/g] 12-16-2020 Chronic Past or Other Problems Problem Classification Problem Date Documented Date Episodic/Chronic Bacterial infection; unspecified site (1 source) Bacterial upper respiratory infection; Translations: [Bacterial sinusitis] Resolved: 10-08-2018 10-08-2018 Episodic Coronary atherosclerosis and other heart disease (20 sources) Coronary atherosclerosis and other heart disease Headache; including migraine (20 sources) Headache; Translations: [Headache] Resolved: 10-08-2018 10-08-2018 Episodic Influenza (20 sources) Influenza Mood disorders (20 sources) Mood disorders Pneumonia (except that caused by tuberculosis or sexually transmitted disease) (1 source) Pneumonia (except that caused by tuberculosis or sexually transmitted disease) Unclassified (20 sources) WWV V73.21 Resolved: 04-14-2015 04-14-2015 Results Test Name Value Interpretation Reference Range Facil ity Vital Signs Date Time Vital Sign Value Performing Clinician Facility 04-29-2023 11:58-0400 Body height 162.56 cm JJ Lee LPN [facility]; [facility] Work Phone: 04-29-2023 11:58-0400 Body mass index (BMI) [Ratio] 40.85 kg/m2 JJ Lee LPN [facility]; [facility] Work Phone: 04-29-2023 11:58-0400 Body surface area Derived from formula 2.11 m2 JJ Lee LPN [facility]; [facility] Work Phone: 04-29-2023 11:58-0400 Body temperature 97.6 [degF] JJ Lee LPN [facility]; [facility] Work Phone: Encounters Encounter Date Encounter Type Care Provider Facility Start: 04-29-2023 End: 04-29-2023 Office outpatient visit 15 minutes Patricia Becker DO Work Phone: [facility] Start: 04-29-2023 Review Patricia rhodes DO Work Phone: [facility] Start: 04-12-2023 End: 04-14-2023 Office outpatient visit 25 minutes Patricia Becker DO Work Phone: [facility] Start: 03-25-2023 End: 03-25-2023 Office outpatient visit 10 minutes Patricia Rosita DO Work Phone: [facility] Start: 02-25-2023 End: 02-25-2023 Office outpatient visit 25 minutes Patricia Rosita DO Work Phone: [facility] Start: 10-25-2022 ambulatory Patricia Rosita DO [facility] Start: 10-25-2022 End: 10-25-2022 Office outpatient visit 10 minutes Patricia Rosita DO Work Phone: [facility] Start: 10-25-2022 Review Patricia Fearo n DO Work Phone: [facility] Start: 06-27-2022 End: 06-27-2022 Patient encounter procedure Patricia Rosita DO Work Phone: [facility] Start: 03-15-2022 End: 03-15-2022 Office outpatient visit 10 minutes Patricia Rosita DO Work Phone: [facility] Start: 03-08-2022 End: 03-08-2022 Office outpatient visit 15 minutes Patricia Rosita DO Work Phone: [facility] Start: 02-22-2022 End: 02-22-2022 Office outpatient visit 10 minutes Patricia Rosita DO Work Phone: [facility] Start: 02-05-2022 End: 02-05-2022 Office outpatient visit 10 minutes Patricia Rosita DO Work Phone: [facility] Start: 01-24-2022 End: 01-24-2022 Office outpatient visit 25 minutes Patricia Rosita DO Work Phone: [facility] Start: 01-24-2022 Review Patricia Fearo n DO Work Phone: [facility] Start: 01-18-2022 End: 01-18-2022 Phone Encounter Patricia Rosita DO Work Phone: [facility] Start: 10-24-2021 End: 10-24-2021 Office outpatient visit 25 minutes Patricia Rosita DO Work Phone: [facility] Start: 05-30-2021 End: 05-30-2021 Office outpatient visit 10 minutes Patricia Rosita DO Work Phone: [facility] Start: 04-25-2021 End: 04-25-2021 Office outpatient visit 25 minutes Patricia Rosita DO Work Phone: [facility] Start: 01-17-2021 End: 01-17-2021 Office outpatient visit 25 minutes Patricia Rosita DO Work Phone: [facility] Start: 01-17-2021 Review Patricia Fearo n DO Work Phone: [facility] Start: 01-04-2021 End: 01-04-2021 Phone Encounter Patricia Rosita DO Work Phone: [facility] Start: 01-04-2021 End: 01-04-2021 Phone Encounter Patricia Rosita DO Work Phone: [facility] Start: 01-03-2021 End: 01-03-2021 Lab Order Patricia Rosita DO Work Phone: [facility] Start: 12-16-2020 End: 12-16-2020 Office outpatient visit 25 minutes Patricia Rosita DO Work Phone: [facility] Start: 12-09-2020 Review Patricia Fearo n DO Work Phone: [facility] Start: 12-09-2020 End: 12-09-2020 Office outpatient visit 25 minutes Patricia Rosita DO Work Phone: [facility] Start: 10-01-2019 End: 10-01-2019 Office outpatient visit 10 minutes Patricia Rosita [facility] Start: 08-31-2019 End: 08-31-2019 Office outpatient visit 15 minutes Patricia Rosita [facility] Start: 07-27-2019 End: 07-27-2019 Office outpatient visit 25 minutes Patricia Rosita [facility] Start: 06-22-2019 End: 06-22-2019 Office outpatient visit 5 minutes Patricia Rosita [facility] Start: 12-01-2018 End: 12-01-2018 Office outpatient visit 25 minutes Patricia Becker [facility] Start: 11-05-2018 End: 11-05-2018 Office outpatient visit 15 minutes Patricia Becker [facility] Start: 10-29-2018 End: 10-29-2018 Office outpatient visit 15 minutes Patricia Becker [facility] Start: 10-08-2018 End: 10-08-2018 Office outpatient visit 40 minutes Patricia Becker [facility] Start: 04-23-2018 End: 04-24-2018 Patient encounter Troy Frandy Yamile Facility:[facility] Start: 04-23-2018 Patient encounter Facil [id number] Start: 04-16-2018 End: 04-17-2018 Patient encounter Troy Frandy Yamile Facility:[facility] Start: 04-16-2018 End: 04-17-2018 Patient encounter Troy Ovalle Facility:[facility] Start: 04-16-2018 Patient encounter Facil [id number] Start: 08-06-2017 End: 08-06-2017 Office outpatient visit 15 minutes Patricia Becker [facility] Start: 05-24-2017 End: 05-24-2017 Office outpatient visit 5 minutes Patricia Becker [facility] Start: 09-20-2016 End: 09-20-2016 Office outpatient visit 15 minutes Patricia Becker [facility] Start: 06-08-2016 End: 06-08-2016 Phone Encounter Patricia Becker [facility] Start: 04-18-2016 End: 04-18-2016 Office outpatient visit 5 minutes Patricia Becker [facility] Start: 04-14-2015 End: 04-14-2015 Office outpatient visit 10 minutes Patricia Becker [facility] Start: 01-19-2015 End: 01-19-2015 Office outpatient visit 15 minutes Patricia Becker [facility] Start: 10-25-2014 End: 10-25-2014 Office outpatient visit 25 minutes Patricia Becker [facility] Start: 11-13-2013 End: 11-13-2013 Annotation/Addendum Patricia Bceker [facility] Start: 11-11-2013 End: 11-11-2013 Annotation/Addendum Patricia Becker [facility] Start: 11-02-2013 End: 11-02-2013 Office outpatient visit 15 minutes Patricia Becker [facility] Start: 10-05-2013 End: 10-05-2013 Office outpatient visit 15 minutes Patricia Becker [facility] Start: 09-29-2013 End: 09-29-2013 Patient encounter procedure Patricia Becker [facility] Start: 09-01-2013 End: 09-01-2013 Patient encounter procedure Patricia Becker [facility] Start: 07-10-2013 End: 07-10-2013 Annotation/Addendum Patricia Becker [facility] Start: 07-06-2013 End: 07-06-2013 Office outpatient visit 10 minutes Patricia Rosita [facility] Start: 06-01-2013 End: 06-01-2013 Office outpatient visit 10 minutes Patricia Becker [facility] Start: 05-18-2013 End: 05-18-2013 Annotation/Addendum Patricia Becker [facility] Start: 05-18-2013 End: 05-18-2013 Office outpatient visit 25 minutes Patricia Becker [facility] Start: 06-23-2012 End: 06-23-2012 Patient encounter procedure Patricia Becker [facility] Start: 05-26-2012 End: 05-26-2012 Patient encounter procedure Patricia Becker [facility] Procedures Date Procedure Procedure Detail Performing Clinician Start: 11-23-2021 End: 11-23-2021 Kidney and Bladder Comments: See Note; NOTES: [facility] Imaging Services [address] [place] [id number] Kidney and Bladder MR#: [id number] Acct: [id number] Name: VERONICA COOK Rep #: [id number] : 1950 F 71 From: Ozzy Luz PCP: Dr. Patricia Becker DO Status: REG CLI Study: Kidney and Bladder Date of Exam: 11/23/21 Exam# [id number] Ordering Dr: Nani Gonzales DO STUDY: RENAL ULTRASOUND - COMPLETE REASON FOR EXAM: Female, 71 years old. CYST OF KIDNEY TECHNIQUE: Ultrasound evaluation of the kidneys was performed with real-time and static bryant-scale imaging. COMPARISON: ct Jan 12 2021 1:21pm FINDINGS: RIGHT KIDNEY: with mild renal atrophy. The right kidney measures 8x4.7 cm. There is a normal cortex of the right kidney. The renal cortex measures 1 cm. There is no right renal mass or cyst. There are no right renal calculi. There is no right hydronephrosis. DISTAL RIGHT URETER: There is non-visualization of the distal right ureter. There is no demonstrated right ureterovesical junction calculus. There is a visualized right ureteral jet. LEFT KIDNEY: Normal location of the left kidney, which is normal in size. The left kidney measures 13x7.1 cm. There is a normal cortex of the left kidney. The renal cortex measures 1.4 cm. There is left renal 56 mm and 19 mm cyst. There are no left renal calculi. There is no left hydronephrosis. DISTAL LEFT URETER: There is non-visualization of the distal left ureter. There is no demonstrated left ureterovesical junction calculus. There is a visualized left ureteral jet. AORTA: There is obscuration of the abdominal aorta by overlying bowel gas I.V.C.: The IVC is obscured. BLADDER: The distended urinary bladder has a volume of 153 ml. There is a normal wall thickness of the distended urinary bladder. There is no demonstrated mass within the urinary bladder. There are no demonstrated bladder calculi. US/Kidney and Bladder IMPRESSION: Atrophic right kidney. There is hypoechoic foci of the left kidney. These are consistent for cysts. No follow up required. Electronically Signed: Ozzy Barajas MD at 15:37 EDT , CC: Dr. Nani Gonzales DO; Dr. Patricia Becker DO Data Entry Operator: Signed Patricia Becker DO Work Phone: Start: 05-22-2021 End: 10-25-2021 Breast Limited Unilateral Comments: See Note; NOTES: [facility] Imaging Services [address] [place] [address] Breast Limited Unilateral MR#: [id number] Acct: [id number] Name: VERONICA COOK Rep #: [id number] : 1950 F 71 From: Bishnu neville MD PCP: Dr. Patricia Becker DO Status: REG CLI Study: Breast Limited Unilateral Date of Exam: Exam# [id number] Ordering Dr: Yola Hinds NP HOSPITAL EDUCATION COORDINATOR-C STUDY: ULTRASOUND BREAST - RIGHT REASON FOR EXAM: Female, 71 years old. Abnormal screening mammogram. TECHNIQUE: Axial and longitudinal images of the RIGHT breast were performed with a high resolution ultrasound transducer. # OF IMAGES: 11 COMPARISON: Comparison is made with prior mammogram dated 05/18/2021. FINDINGS: RIGHT Breast: The mammographic abnormality corresponds to a 7 mm x 7 mm x 7 mm cyst at the 7 o''clock position of the breast at 3 cm from nipple. US/Breast Limited Unilateral IMPRESSION: There is a 7 mm x 7 mm x 7 mm cyst at the 7 o''clock position of the breast at 3 cm from the nipple. This corresponds to the mammographic findings. ASSESSMENT CATEGORY: BIRADS Category 2: Benign. A letter regarding these results will be sent to the patient by the facility within 30 days. Electronically Signed: Bishnu Almanzar MD at 10:36 EDT , Service support , CC: RAISSA Hinds; Dr. Patricia Becker DO Data Entry Operator: Signed Yola Hinds CRTTS Work Phone: Start: 05-18-2021 End: 05-19-2021 Dexa Bone Density Study Comments: See Note; NOTES: [facility] Imaging Services [address] [place] [address] Dexa Bone Density Study MR#: [id number] Acct: [id number] Name: VERONICA COOK Rep #: [id number] : 1950 F 71 From: Bishnu neville MD PCP: Dr. Patricia Becker, DO Status: [facility] CLI Study: Dexa Bone Density Study Date of Exam: 05/18/21 Exam# [id number] Ordering Dr: Yola Hinds HOSPITAL EDUCATION COORDINATOR HOSPITAL EDUCATION COORDINATOR-C STUDY: DUAL ENERGY X-RAY ABSORPTIOMETRY / DXA REASON FOR EXAM: Female, 71 years old. [id number]. The patient is postmenopausal. TECHNIQUE: Bone Mineral Density (BMD) measurements of lumbar spine and bilateral hips were obtained. COMPARISON: None. FINDINGS: Lumbar Spine (L1-L4): g/cm2 (0.918) / T-score (-1.2) / Z-score (1.1) Findings are suggestive of osteopenia with a low fracture risk. Left Femur Total: g/cm2 (0.883) / T-score (-0.5) / Z-score (1.1) Left Femoral Neck: g/cm2 (0.776) / T-score (-0.7) / Z-score (1.3) Right Femur Total: g/cm2 (0.933) / T-score (-0.1) / Z-score (1.5) Right Femoral Neck: g/cm2 (0.768) / T-score (-0.7) / Z-score (1.2) BD/Dexa Bone Density Study IMPRESSION: The patient is considered osteopenic as outlined below according to World Alpesh Organization (WHO) criteria with a low fracture risk. Reference Information: The T-score is the number of standard deviations above or below the standard which is normal for young adults at their peak bone mineral density. The World Health Organization (WHO) interprets the T-scores as follows: Above -1 Normal bone density Between -1 and -2.5 Osteopenia Equal to / or below -2.5 Osteoporosis As a practical clinical guideline, osteopenia may be graded as follows: Mild -1 through -1.5 Moderate -1.6 through -2.0 Severe -2.1 through -2.4 The Z-score is the number of standard deviations above or below age-matched controls. A Z-score of less than -1.5 would be considered abnormal. References: 1. NIH Osteoporosis and Related Bone Diseases www osteo.org 2. International Society for Clinical Densitometry www iscd.org 3. National Osteoporosis Foundation www nof.org Electronically Signed: Bishnu Almanzar MD at 10:08 EDT , Service support , CC: RAISSA Hinds; Dr. Patricia Becker DO Data Entry Operator: Signed Yola Hinds [facility] Work Phone: Start: 05-18-2021 End: 05-19-2021 SCRN MAMM (CAD)W/EARLINE BILAT Comments: See Note; NOTES: [facility] Imaging Services [address] [place] [address] SCRN MAMM (CAD)W/EARLINE BILAT MR#: [id number] Acct: [id number] Name: VERONICA COOK Rep #: [id number] : 1950 F 71 From: Bishnu neville MD PCP: Dr. Patricia Becker DO Status: [facility] Study: SCRN MAMM (CAD)W/EARLINE BILAT Date of Exam: 04/29 08/18 Exam# [id number] Ordering Dr: Yola Hinds NP HOSPITAL EDUCATION COORDINATOR-C MAMMOGRAPHY - BILATERAL SCREENING REASON FOR EXAM: Female, 71 years old. Routine annual screening examination. PERTINENT HISTORY: Non-contributory. TECHNIQUE: Digital bilateral breast earline (3D mammographic acquisition) in the CC and MLO projections. 2-D mediolateral oblique (MLO) and craniocaudad (CC) views of both breasts were obtained. CAD: Full Field Digital Mammography with Computer Added Detection was performed. COMPARISON: Comparison is made with prior abdomen examination dated 10/29/2016. FINDINGS: Breast Composition: There are scattered areas of fibroglandular density. There are now is evidence of a 1.1 cm x 1.4 cm well-defined nodule in the deep slightly inferior central aspect of the right breast at the 6 o''clock position. Correlation with ultrasound is recommended. No other significant abnormalities are identified. BI/SCRN MAMM (CAD)W/EARLINE BILAT IMPRESSION: 1.1 cm x 1.4 cm well-defined nodule in the deep slightly inferior central aspect of the right breast at the 6 o''clock position. Correlation with ultrasound is recommended. ASSESSMENT CATEGORY: BIRADS Category 0: Incomplete. Need additional imaging evaluation. A letter regarding these results will be sent to the patient by the facility within 30 days. Approximately 10% of breast cancers are not detected by mammography. A normal mammogram should not delay biopsy of a clinically suspicious abnormality. [id number] Electronically Signed: Bishnu Almanzar MD at 15:06 EDT , Service support , CC: RAISSA Hinds; Dr. Patricia Becker DO Data Entry Operator: Signed Yola Hinds [facility] Work Phone: Start: 01-12-2021 End: 2021 Abdomen/Pelvis without Cont Comments: See Note; NOTES: [facility] Imaging Services [address] [place] [address] Abdomen/Pelvis without Cont MR#: [id number] Acct: [id number] Name: VERONICA COOK Rep #: [id number] : 1950 F 70 From: Bishnu neville MD PCP: Dr. Patricia Becker, DO Status: REG CLI Study: Abdomen/Pelvis without Cont Date of Exam: 12/27 02/15 Exam# [id number] Ordering Dr: Rosaura Prather MD STUDY: CT ABDOMEN AND PELVIS WITHOUT CONTRAST REASON FOR EXAM: Female, 70 years old. RENAL INSUFFICIENCY RADIATION DOSAGE (If Supplied By Facility): CTDIvol = ( 21.22 ) mGy, DLP = ( 1151.65 ) mGycm TECHNIQUE: Transaxial images were obtained from the dome of the diaphragm to the symphysis pubis without oral contrast, and without intravenous contrast. Sagittal and coronal images were reconstructed. Individualized dose optimization techniques were used for this CT. COMPARISON: Comparison is made with prior study dated 04/15/2015. FINDINGS: Calcified granuloma in the right lower lobe. The visualized portions of the heart are within normal limits. Normal liver. There are surgical clips in the gallbladder fossa consistent with a prior cholecystectomy. There are multiple benign calcified granulomata of the spleen. Normal pancreas. Normal bilateral adrenal glands. There is moderate cortical atrophy of the right kidney, consistent with chronic medical renal disease. There is a 6.3 cm Bard 5.6 cm cyst in the upper midportion of the left kidney. There is also evidence of a 1.7 cm cyst in the posterior aspect of the left kidney. Small nonobstructive intrarenal calculi in the lower pole of the left kidney. Incidental note is made of a left retroaortic renal vein. Normal visualized stomach. Normal small intestine. Normal colon. The patient is status post appendectomy. Normal abdominal aorta. Normal inferior vena cava. Normal retroperitoneum. Normal urinary bladder. Normal abdominal wall. There are mild degenerative changes of the visualized lumbar spine. CT/Abdomen/Pelvis without Cont IMPRESSION: 6.3 cm x 5.6 mm cyst in the upper midportion left kidney. Small parapelvic cyst. Small nonobstructive intrarenal calculi in the lower pole of the left kidney. Retroaortic left renal vein. Electronically Signed: Bishnu Almanzar MD at 13:59 EDT , Service support , CC: Dr. Rosaura Prather MD; Dr. Patricia Becker DO Data Entry Operator: Signed Patricia Becker DO Work Phone: Start: 05-05-2019 End: 05-05-2019 Operative Report Comments: See Note; NOTES: [facility] Medical Records Department [address] [place] [address] Operative Report 05/05/19 0856 MR#: [id number] Acct: [id number] Name: VERONICA COOK Rep #: [id number] : 1950 69 From: Rosaura Prather MD PCP: Patricia Becker DO Status: [facility] Location: [place] [address] Problem List (1) Migration of ureteral stent Status: Acute (2) Calculus of kidney with calculus of ureter Status: Acute Report of Operation Date of Procedure: 05/05/19 Pre-Operative Diagnosis: migration ureteral stent, ureteral and kidney stone, left side Post-Operative Diagnosis: same Surgery/Procedure Performed:: left ureteroscopy, removal left ureteral stent Description of Surgical Findings:: stent removed without difficulty. Type of Anesthesia:: MAC Special Medications: ancef Description of Procedure: Patient is a 69-year-old female who underwent ureteroscopic stone extraction approximately 2 weeks ago and developed a migration of her left ureteral stent into the distal aspect of the left ureter. I was unable to remove it in the office and she now presents for ureteroscopy and removal of her left ureteral stent. All risk benefits and alternatives were discussed and she agreed to proceed. Patient was taken to the operating room and placed on the operating room table. Anesthesia monitored the head, neck, airway, IV access and vital signs throughout the case. Once anesthesia was a probably administered patient was prepped and draped in usual sterile fashion. She was placed into dorsal lithotomy position a left ureteroscopy was performed in the left ureteral stent was easily visualized. It was grasped using biopsy forceps after a stone basket extraction failed. It was removed without difficulty. The case was terminated and the patient was awakened and taken to the recovery room in good condition. There were no complications during the procedure. Grafts/Implants Used: none - Complications none - Admit VTE Documentation VTE Present on Admission: Yes VTE Mechan Device Prophylaxis: SCD's VTE Pharm Prophylaxis ordered?: No Reason prophylaxis not ordered:: Treatment Not Indicated 05/05/19933 <Electronically signed by Rosaura Prather MD> Date Rosaura Prather MD CC: Rosaura Prather MD; Patricia Becker DO Signed Patricia Becker Start: 05-05-2019 End: 05-05-2019 Discharge Instruction Comments: See Note; NOTES: [facility] Medical Records Department [address] [place] [address] Instructions for Home/Discharge Instructions 05/05/19 0859 MR#: [id number] Acct: [id number] Name: JOYCEVERONICA K Rep #: [id number] : 1950 69 From: Rosaura Prather MD PCP: Patricia Becker DO [place] [facility] [place] Diet: No Restrictions Discharge Activity: Return to Normal Activity, May Shower Call your doctor if you observe: Fever of 101 or Higher, Inability to urinate, Inability to have a bowel movement, Shortness of breath, Chest pain, Calf discomfort, Uncontrolled pain Allergies/Adverse Reactions: Allergies poison brandee extract Allergy (Verified 05/04/19 09:51) Rash poison oak extract Allergy (Verified 05/04/19 09:51) Rash Medications to take at Discharge Estradiol [Estrace] 1 g VAGINALLY QWEEK 03/06/19 Albuterol Inhaler [Ventolin Hfa] 1 - 2 puff INHALATION Q4H PRN PRN 03/17/19 Bee Pollen 550 mg PO DAILY 03/17/19 Diltiazem HCl [Diltiazem 24Hr ER (LA)] 360 mg PO DAILY 03/17/19 Multivitamin with Minerals [Multiple Vitamin] 1 ea PO DAILY 03/17/19 Phenazopyridine HCl [Pyridium] 200 mg PO TID PRN PRN 7 Days #30 tab 04/21/19 Primary Care Physician: Patricia Becker DO [Primary Care Provider] - Test Results: Test results from this visit will be discussed in further detail at your follow-up appointment, if applicable. Please Follow Up With: Rosaura Prather MD When: 4 weeks, will need 24hr UA, call office Proposed Discharge Date: 05/05/19 05/05/19 0900 <Electronically signed by Rosaura Prather MD> Date Rosaura Prather MD CC: Patricia Becker DO Signed Patricia Becker Start: 04-29-2019 End: 04-29-2019 Abdomen Single View Comments: See Note; NOTES: [facility] Imaging Services [address] [place] [address] Abdomen Single View MR#: [id number] Acct: [id number] Name: VERONICA COOK Rep #: [id number] : 1950 F 69 From: Alberto Mcintosh MD PCP: Patricia Becker DO Status: REG CLI Study: Abdomen Single View Date of Exam: 04/29/19 Exam# [id number] Ordering Dr: Rosaura Prather MD STUDY: X-RAY - ABDOMEN/PELVIS REASON FOR EXAM: Female, 69 years old. Kidney stone TECHNIQUE: KUB COMPARISON: July 13, 2019 FINDINGS: Normal visualized lung bases. There is an unremarkable bowel gas pattern. There is no demonstrated free abdominal air. The visualized liver, spleen and kidneys are grossly normal in size and morphology. Question tiny calculus in the lower pole collecting system Postop change status post cholecystectomy. Left ureterovesical stent noted. Normal visualized osseous structures. RAD/Abdomen Single View IMPRESSION: Status post left ureterovesical stent placement. Electronically Signed: Alberto Mcintosh MD at 19:20 EDT , Service support , CC: Rosaura Prather MD; Patricia Becker DO Data Entry Operator: Signed Patricia Becker Start: 04-21-2019 End: 04-21-2019 Operative Report Comments: See Note; NOTES: [facility] Medical Records Department [address] [place] [address] Operative Report 04/21/19 1031 MR#: [id number] Acct: [id number] Name: VERONICA COOK Rep #: [id number] : 1950 69 From: Rosaura Prather MD PCP: Patricia Becker DO Status: REG SDC Y Location: [place] [address] Problem List (1) Calculus of kidney with calculus of ureter Status: Acute Report of Operation Date of Procedure: 04/21/19 Pre-Operative Diagnosis: left renal and ureteral calculus Post-Operative Diagnosis: same Surgery/Procedure Performed:: cystoscopy, left ureteroscopy, laser lithotripsy, stone basket extraction and left ureteral stent change Description of Surgical Findings:: A ureteral access sheath and flexible ureteroscopy were performed with a holmium laser lithotripsy and stone basket extraction all large stone fragments were removed. There are small remaining fragments too small to be removed with the basket. Type of Anesthesia:: General Description of Procedure: Patient is a 69-year-old female who underwent an extracorporal shockwave lithotripsy of a large left renal calculus approximately a month ago. She now presents after 50% of the stone has passed to definitively treat the remaining stone burden. On last KUB done approximately 1 week ago she had 3 ureteral stones alongside her stent. All risks benefits and alternatives were discussed and informed consent was obtained. Patient was taken to the operating room placed in the operating room table. Anesthesia monitored the head, neck, airway, IV access and vital signs throughout the case. Once anesthesia was probably administered patient was placed into dorsal lithotomy position was prepped and draped in usual sterile fashion. A cystourethroscopy revealed the left ureteral stent. Two .035 glide wires were passed alongside the stent which was then removed without difficulty. Using 1 wire as a safety wire, the other one was used for placement of the the ureteral access sheath under fluoroscopic visualization. After the sheath was safely inserted ureteroscopy was performed through the sheath and the stone was identified. It was in the lower pole and there were 2 large pieces with some small fragments. The stones here were lasered into small pieces and removed with the basket. The ureteral stones were observed in the ureter as the ureteral reaccessed sheath was being removed under direct visualization. As soon as a stone fragment was identified, the sheath was left in place and the basket was used to grasp the stone and remove it through the sheath. The ureteroscope was then reentered and the sheath was removed completely under direct visualization. There were no ureteral injuries. Using the safety wire, a 7 Welsh 24 cm double-J stent was inserted without difficulty. The patient's bladder was then emptied and the case was terminated. She was taken to the recovery room in good condition. Grafts/Implants Used: 7 x 24 cm double-J ureteral stent - Complications None - Admit VTE Documentation VTE Present on Admission: Yes VTE Mechan Device Prophylaxis: SCD's VTE Pharm Prophylaxis ordered?: No Reason prophylaxis not ordered:: Treatment Not Indicated 04/21/19 3073 <Electronically signed by Rosaura Prather MD> Date Rosaura Prather MD CC: Rosaura Prather MD; Patricia Becker DO Signed Patricia Becker Start: 04-21-2019 End: 04-21-2019 Discharge Instruction Comments: See Note; NOTES: [facility] Medical Records Department [address] [place] [address] Instructions for Home/Discharge Instructions 04/21/19 1030 MR#: [id number] Acct: [id number] Name: VERONICA COOK Rep #: [id number] : 1950 69 From: Rosaura Prather MD PCP: Patricia Becker DO Status: REG [facility] Discharge Diet: No Restrictions Discharge Activity: May not drive while taking narcotic pain medications., May Shower Call your doctor if you observe: Fever of 101 or Higher, Inability to urinate, Shortness of breath, Chest pain, Calf discomfort, Uncontrolled pain Allergies/Adverse Reactions: Allergies poison brandee extract Allergy (Verified 04/16/19 09:13) Rash poison oak extract Allergy (Verified 04/16/19 09:13) Rash Medications to take at Discharge Estradiol [Estrace] 1 g VAGINALLY QWEEK 10/01/18 Albuterol Inhaler [Ventolin Hfa] 1 - 2 puff INHALATION Q4H PRN PRN 03/17/19 Bee Pollen 550 mg PO DAILY 03/17/19 Diltiazem HCl [Diltiazem 24Hr ER (LA)] 360 mg PO DAILY 03/17/19 Multivitamin with Minerals [Multiple Vitamin] 1 ea PO DAILY 03/17/19 Cephalexin [Keflex] 500 mg PO Q12 3 Days #6 cap 04/21/19 Oxycodone HCl/Acetaminophen [Percocet 5/325] 1 - 2 tab PO Q6H PRN PRN 7 Days #20 tab 04/21/19 Phenazopyridine HCl [Pyridium] 200 mg PO TID PRN PRN 7 Days #30 tab 04/21/19 The following prescriptions were given: Cephalexin [Keflex] 500 mg PO Q12 3 Days #6 cap Prescription Printed Oxycodone HCl/Acetaminophen [Percocet 5/325] 1 - 2 tab PO Q6H PRN PRN 7 Days #20 tab PRN Reason: Pain Prescription Printed Phenazopyridine HCl [Pyridium] 200 mg PO TID PRN PRN 7 Days #30 tab PRN Reason: Bladder Spasms Prescription Printed Primary Care Physician: Patricia Becker DO [Primary Care Provider] - Test Results: Test results from this visit will be discussed in further detail at your follow-up appointment, if applicable. Please Follow Up With: Rosaura Prather MD When: call office for appt in 1 week for stent removal. Proposed Discharge Date: 04/21/19 04/21/19 1601 <Electronically signed by Rosaura Prather MD> Date Rosaura Parther MD CC: Patricia Becker DO Signed Patricia Becker Start: 04-13-2019 End: 04-13-2019 Abdomen Single View Comments: See Note; NOTES: [facility] Imaging Services [address] [facility] [address] Abdomen Single View MR#: [id number] Acct: [id number] Name: VERONICA COOK Rep #: [id number] : 1950 F 69 From: Augusto Salazar MD PCP: Patricia Becker DO Status: REG CLI Study: Abdomen Single View Date of Exam: 04/13/19 Exam# [id number] Ordering Dr: Rosaura Prather MD STUDY: X-RAY - ABDOMEN/PELVIS REASON FOR EXAM: Female, 69 years old. Flank pain TECHNIQUE: Single AP view of the abdomen / pelvis. COMPARISON: 03/11/2019 FINDINGS: A left-sided JJ stent has been placed, there has likely been recent lithotripsy as there are multiple calcific densities noted along the course of the left-sided JJ stent measuring between 1 and 3 mm. A large calcification in the lower pole of the left kidney has changed since the previous study again likely due to lithotripsy. Now measures approximate 0.7 cm in greatest dimension with multiple punctate calcifications around its periphery. There is a moderate amount of colonic fecal material. There is no demonstrated free abdominal air. The visualized liver, spleen and kidneys are grossly normal in size and morphology. Normal soft tissue structures. There are diffuse degenerative changes of the visualized lumbar spine. RAD/Abdomen Single View IMPRESSION: Patient has likely undergone lithotripsy since the previous study with placement of a left-sided JJ stent. A large calcification in the lower pole of the left kidney which previously measured 1.8 cm now shows multiple fragments with the largest measuring 0.7 cm. There are multiple calcifications along the course of the left-sided JJ stent measuring between 1 and 3 mm. Retained stool Degenerative bony changes Electronically Signed: Wilton Salazar MD at 13:49 EDT , Service support , CC: Rosaura Prather MD; Patricia Becker DO Data Entry Operator: Signed Patricia Becker Start: 03-24-2019 End: 03-24-2019 Operative Report Comments: See Note; NOTES: [facility] Medical Records Department [address] [place] [address] Operative Report 03/24/19 0751 MR#: [id number] Acct: [id number] Name: VERONICA COOK Rep #: [id number] : 1950 69 From: Rosaura Prather MD PCP: Patricia Becker DO Status: REG SD Y Location: [place] [address] Problem List (1) Left renal stone Status: Acute Report of Operation Date of Procedure: 03/24/19 Pre-Operative Diagnosis: left renal calculus Post-Operative Diagnosis: same Surgery/Procedure Performed:: left renal extracorporeal shockwave lithotripsy, cystoscopy and left ureteral stent insertion. Description of Surgical Findings:: The patient is a 69-year-old female whose had a left renal calculus for some time. She presented to the office, and after discussing the risk benefits and alternatives, she agreed to proceed with shockwave lithotripsy. Informed consent was obtained. The patient was taken to the operating room and placed in the operating room table. Anesthesia monitored the head, neck, airway, IV access and vital signs throughout the case. Once anesthesia was appropriately administered the patient was placed in appropriate position in the lithotripter. The stone was identified and appeared enlarged from previous imaging studies. The decision was made to insert a stent at the end of the lithotripsy. I discussed this decision with the patient's daughter and and they agreed. The patient received 3000 shocks to the stone which appeared to be fragmented. Cystoscopy was performed using a 30 degree lens. The urine was the color of pink lemonade and direct visualization of the mucosa was difficult. The left ureteral orifice was identified and a 0.035 Glidewire was inserted without difficulty. A 6 Welsh 24 cm double-J stent was passed and had good positioning in the renal pelvis as well as the urinary bladder. There were no complications during the procedure. She was taken to the recovery room in good condition. Type of Anesthesia:: General Description of Procedure: The stone was well fragmented at the conclusion of 3000 shocks. A 6 Welsh 24 cm double-J stent was used. Grafts/Implants Used: [id number] JJ stent - Complications none - Admit VTE Documentation VTE Present on Admission: Yes VTE Mechan Device Prophylaxis: SCD's VTE Pharm Prophylaxis ordered?: No Reason prophylaxis not ordered:: Treatment Not Indicated 03/24/19 1012 <Electronically signed by Rosaura Prather MD> Date Rosaura Prather MD CC: Rosaura Prather MD; Patricia Becker DO Signed Patricia Becker Start: 03-24-2019 End: 03-24-2019 Discharge Instruction Comments: See Note; NOTES: [facility] Medical Records Department [address] [place] [address] Instructions for Home/Discharge Instructions 03/24/19 0753 MR#: [id number] Acct: [id number] Name: VERONICA COOK Rep #: [id number] : 1950 69 From: Rosaura Prather MD PCP: Patricia Becker DO [place] [facility] [place] Diet: No Restrictions Discharge Activity: May not drive while taking narcotic pain medications. Call your doctor if you observe: Fever of 101 or Higher, Inability to urinate, Shortness of breath, Calf discomfort, Uncontrolled pain Allergies/Adverse Reactions: Allergies No Known Allergies Allergy (Verified 03/17/19 14:28) Medications to take at Discharge RX: Estradiol [Estrace] 1 g VAGINALLY QWEEK 10/01/18 Albuterol Inhaler [Ventolin Hfa (SP)] 1 - 2 puff INHALATION Q4H PRN PRN 03/17/19 Diltiazem HCl [Diltiazem ER] 360 mg PO DAILY 03/17/19 Multivitamin with Minerals [Multiple Vitamin] 1 ea PO DAILY 03/17/19 RX: Bee Pollen 550 mg PO DAILY 03/17/19 Primary Care Physician: Patricia Becker DO [Primary Care Provider] - Test Results: Test results from this visit will be discussed in further detail at your follow-up appointment, if applicable. Please Follow Up With: Rosaura Prather MD When: call office for appt Proposed Discharge Date: 03/24/19 03/24/19 0755 <Electronically signed by Rosaura Prather MD> Date Rosaura Prather MD CC: Patricia Becker DO Signed Patricia Becker Start: 03-11-2019 End: 03-11-2019 Abdomen Single View Comments: See Note; NOTES: [facility] Imaging Services [address] [place] [address] Abdomen Single View MR#: [id number] Acct: [id number] Name: VERONICA COOK Rep #: [id number] : 1950 F 69 From: Trell Ramirez DO PCP: Patricia Becker DO Status: REG CLI Study: Abdomen Single View Date of Exam: 03/11/19 Exam# [id number] Ordering Dr: Rosaura Prather MD STUDY: X-RAY - ABDOMEN/PELVIS REASON FOR EXAM: Female, 69 years old. Kidney stone for 5 years. Occasional pain. TECHNIQUE: Two AP supine views of the abdomen and pelvis. COMPARISON: April 17, 2016. FINDINGS: Normal visualized lung bases. There is an unremarkable bowel gas pattern. There is no demonstrated free abdominal air. The visualized liver, spleen and kidneys are grossly normal in size and morphology. Cholecystectomy clips are seen in the right upper quadrant. Again seen is a teardrop shaped calcification overlying lower pole left kidney consistent with renal calculus. This is unchanged from previous exam. No other suspicious calcifications are present. Normal soft tissue structures. Stable degenerative changes of the lumbar spine. RAD/Abdomen Single View IMPRESSION: No acute abnormality or interval change. Electronically Signed: Trell Ramirez DO at 18:04 EDT Tel [phone], Service support , CC: Rosaura Prather MD; Patricia Becker DO Data Entry Operator: Signed Patricia Becker Start: 11-04-2018 End: 11-04-2018 TXT - Blood Flow Screening Comments: See Note; NOTES: [facility] Cardiovascular Services [address] [place] [address] 11/04/18 0950 MR#: [id number] Acct: [id number] Name: VERONICA COOK Rep #: [id number] : 1950 68 From: Paxton Zurita MD Attending Dr: Patricia Becker DO Status: REG REF Ordering Dr: Date: 11/04/18 Location: [facility] Sex: F C Admitted: Reason For Study: Blood flow screeing Carotid Duplex Ultrasound Abdominal Aorta The right maximum ICA velocity is 100.8/38.2 cm/s.The maximal outside diameter of the proximal aorta The right ECA velocity is less than 125 cm/s. measures 1.5 cm in the longitudinal axis. There is no plaque formation noted on the right The maximal outside diameter of the proximal aorta side. measures 1.5 x 1.6 cm in the cross-sectional axis. The left maximum ICA velocity is 76.9/32.5 cm/s. The left ECA velocity is less than 125 cm/s. There is no plaque formation noted on the left side. Ankle Brachial Index The right ankle/ brachial index is 1.0. The left ankle/ brachial index is 1.0. Medical History and Assessment The client presents with a history of high blood pressure. The heart rate is 60 beats per minute. The heart rhythm is irregular. The right blood pressure is 140/90. The left blood pressure is 138/84. The assessment was performed by Court Story RVT. Interpretation Summary Normal carotid artery screening (0 to 15% narrowing). Normal aortic ultrasound exam. The ankle/brachial index is normal (1.0 or greater). Ordering Physician: Patricia Becker M.D. Performed By: Lindy Story RVT 11/04/18 1602 Date Paxton Zurita MD CC: Patricia Becker DO Date Dictated: 11/04/18 0950 Date Transcribed: 11/04/18 1602 Data Entry Operator: Signed Patricia Becker Start: 09-30-2018 End: 09-30-2018 Emergency Department Summary Comments: See Note; NOTES: [facility] Medical Records Department [address] [place] [address] Emergency Department Summary 09/30/181957 MR#: [id number] Acct: [id number] Name: VERONICA COOK Rep #: [id number] : 1950 68 From: Shannon Perdue MD PCP: Patricia Becker DO Status: REG ER - ER Visit Summary Date of Service: 09/30/18 Chief Complaint: [] Dizziness this evening History of Present Illness: The patient is a 68 F [] his usual state of health when she suddenly felt a spinning sensation this evening that persisted making hard for her to walk she simply states that her the room is constantly spitting in a circular fashion, she has no headache chest pain abdominal pain no numbness weakness paresthesias, negative review of systems normal bowel bladder habits no exposures no illnesses no history of stroke seizure SC or PE hypertension is well controlled Physical Examination: [] 180/90 General, no distress resting comfortably HEENT is generally unremarkable The neck is supple no adenopathy Cardiovascular, regular rate and rhythm Lungs, clear bilateral Abdomen, soft nontender Extremities, no clubbing cyanosis or edema Neurologic, awake alert answering questions appropriately moving all 4 extremities there is no nystagmus head neck exam unremarkable, visual lux are normal motor sensory cerebellar normal just a sense of dizziness she does not wish to stay that she states she feels very dizzy when she stands her NIH is 0 Test Results: [] Emergency Department Course and Treatment: [] All the above the differentials rather extensive labs CT symptomatic management Ativan and meclizine Feels improvement we tried a walker she still felt dizzy did not feel comfortable discharge home, all of her labs and head CT were generally unremarkable at this time we spoke with hospitalist will admit for further management Treatment Plan: [] Disposition: [] admit stable Impression: [] Intractable vertigo This note was generated with [employer] dictation software. It may contain incorrect words, spelling, and punctuation that were not noted in review of the chart prior to signing ED Disposition - Plan for ED Patient: Referrals: Patricia Becker, DO [Primary Care Provider] - What to do if you have Problems For any increased pain, shortness of breath, bleeding, nausea or vomiting, chest pain, or any unexpected problems, contact your Primary Care Provider. Call [facility] ([phone]) or report to the closest Emergency Room. Call 911 if necessary. 09/30/18 0821 <Electronically signed by Shannon Perdue MD> Date Shannon Perdue MD Cosigner Signature (If Indicated): Date CC: Patricia Lewis Start: 09-30-2018 End: 09-30-2018 Brain/Head without Contrast Comments: See Note; NOTES: [facility] Imaging Services [address] [place] [address] Brain/Head without Contrast MR#: [id number] Acct: [id number] Name: VERONICA COOK Rep #: [id number] : 1950 F 68 From: Conor Grijalva MD PCP: Patricia Becker DO Status: REG ER Study: Brain/Head without Contrast Date of Exam: 09/30/18 Exam# [id number] Ordering Dr: Shannon Perdue MD STUDY: CT BRAIN WITHOUT CONTRAST REASON FOR EXAM: Female, 68 years old. Dizziness. RADIATION DOSAGE (If Supplied By Facility): CTDIvol = ( 44.99 ) mGy, DLP = ( 745.49 ) mGycm TECHNIQUE: Transaxial CT imaging of the brain was performed without administration of intravenous contrast material. Individualized dose optimization techniques were used for this CT. COMPARISON: None. FINDINGS: There is no acute bleed or infarct. There are normal white matter tracts. The ventricles are normal in configuration. There is no hydrocephalus. The visualized paranasal sinuses are clear. The mastoid air cells are well aerated. There is no skull fracture. CT/Brain/Head without Contrast IMPRESSION: No acute intracranial abnormality. Electronically Signed: Conor Grijalva, at 20:18 EST Tel , Service support , CC: MD Grisel Perdue; Patricia Becker DO Data Entry Operator: Signed Patricia Becker Start: 04-17-2016 End: 04-17-2016 Abdomen Single View Comments: See Note; NOTES: [facility] Imaging Services [address] [place] [address] Verdana 4d Abdomen Single View MR#: [id number] Acct: [id number] Name: VREONICA COOK Rep #: [id number] : 1950 F 66 From: Trell Ramirez DO PCP: Makayla Agustin MD Status: REG CLI Study: Abdomen Single View Date of Exam: 04/17/16 Exam# [id number] Ordering Dr: Julio Suarez MD STUDY: X-RAY - ABDOMEN/PELVIS REASON FOR EXAM: Female, 66 years old. Renal calculus. TECHNIQUE: Single AP view of the abdomen / pelvis. COMPARISON: CT of the abdomen and pelvis, April 15, 2015. FINDINGS: The lung bases are not included. There is an unremarkable bowel gas pattern. Air and feces are seen scattered throughout a nondistended colon. There is no small bowel dilatation. There is no demonstrated free abdominal air. The visualized liver, spleen and kidneys are grossly normal in size and morphology. There is a large teardrop-shaped calcification measuring 1.3 x 1.3 cm overlying the lower pole left kidney. This appears unchanged from the prior study. No other calcifications are noted. The distal right ureteral calculus, seen on the prior CT, is no longer present. Small phleboliths are again seen in the left pelvis. Normal soft tissue structures. There are diffuse degenerative changes of the visualized lumbar spine. RAD/Abdomen Single View IMPRESSION: 1. Interval passage of the distal right ureteral calculus seen on the prior CT. 2. Stable calculus in the lower pole the left kidney. Electronically Signed: Trell Ramirez DO at 16:50 EDT Tel [phone], Service support [phone], CC: Makayla Agustin MD; Julio Suarez MD Data Entry Operator: Signed Patricia Becker Start: 04-15-2015 End: 04-15-2015 Abdomen/Pelvis without Cont Comments: See Note; NOTES: [facility] Imaging Services [address] [place] [address] CAT Scan Report MR#: [id number] Acct: [id number] Name: VERONICA COOK Rep #: [id number] : 1950 F 65 From: Bishnu Almanzar MD PCP: Makayla Agustin MD Status: REG CLI Study: Abdomen/Pelvis without Cont Date of Exam: 04/15/15 Exam# [id number] Ordering Dr: Julio Suarez MD STUDY: CT ABDOMEN AND PELVIS WITHOUT CONTRAST REASON FOR EXAM: Female, 65 years old. Hematuria. RADIATION DOSAGE (If Supplied By Facility): CTDIvol = ( 20.32 ) mGy, DLP = ( 1146.95 ) mGycm TECHNIQUE: Transaxial images were obtained from the dome of the diaphragm to the symphysis pubis without oral contrast, and without intravenous contrast. Sagittal and coronal images were reconstructed. COMPARISON: Comparison is made with prior study dated May 21, 2013. FINDINGS: Calcified granuloma in the peripheral aspect of the right lower lobe. Minimal linear scarring at the left lung base. Minimal thickening of the posterior aspect of the pericardium. There is decreased attenuation of the liver consistent with steatosis. There are surgical clips in the gallbladder fossa consistent with a prior cholecystectomy. There are multiple benign calcified granulomata of the spleen. Normal pancreas. Normal bilateral adrenal glands. Mild atrophy of the right kidney. There is a 4.9 cm x 4 cm cyst in the lower midportion of the left kidney. There is a 1 cm calculus in the lower pole calyx of the left kidney. There is a retroaortic left renal vein. Normal visualized stomach. Normal small intestine. Normal colon. The patient is status post appendectomy. Normal abdominal aorta. Normal inferior vena cava. Normal retroperitoneum. Normal urinary bladder. Normal abdominal wall. Normal osseous structures. IMPRESSION: Stable left renal cyst. 1 cm calculus in the lower pole calyx of the left kidney. Electronically Signed: Bishnu Almanzar MD at 15:39 EDT Tel [phone], Service support [phone], CC: Makayla Agustin MD; Julio Suarez MD Data Entry Operator: Signed Patricia Becker Start: 04-14-2015 End: 04-14-2015 Spmtry w/vc expiratory mirta w/wo mxml vol vntj _ Makayla Agustin Work Phone: Plan of Treatment Date Care Activity Detail Author Start: 04-29-2023 Procedure Education Eprescribed prescriptions (G8553) [facility]; [facility] Work Phone: Start: 04-29-2023 Provider Instructions for Treatment [facility] Work Phone: Start: 04-12-2023 Procedure Education Eprescribed prescriptions (G8553) [facility]; [facility] Work Phone: Start: 04-12-2023 Provider Instructions for Treatment [facility] Work Phone: Start: 03-25-2023 Procedure Education Eprescribed prescriptions (G8553) [facility]; [facility] Work Phone: Start: 03-25-2023 Provider Instructions for Treatment [facility] Work Phone: Start: 02-25-2023 Cyanocobalamin vitamin b-12 VITAMIN B-12 (CYANOCOBALAMIN) (48947) [facility]; [facility] Work Phone: Start: 02-25-2023 Assay of thyroid stimulating hormone tsh TSH (THYROID STIMULATING HORMONE) (22968) [facility]; [facility] Work Phone: Start: 02-25-2023 25 hydroxy includes fractions if performed CALCIFEDIOL (17025) [facility]; [facility] Work Phone: Start: 02-25-2023 Urine albumin quantitative MICROALBUMIN: CREATININE RATIO (93404) AND (44899) [facility]; [facility] Work Phone: Start: 02-25-2023 Comprehensive metabolic panel METABOLIC PANEL, COMPREHENSIVE (04610) [facility]; [facility] Work Phone: Start: 02-25-2023 Lipid panel LIPID PANEL (95641) [facility] Work Phone: Start: 02-25-2023 Blood count complete auto&auto difrntl wbc CBC with auto diff (86880) [facility]; [facility] Work Phone: Start: 02-25-2023 Gluc bld gluc mntr dev cleared fda spec home use Blood Glucose , Office (34151) [facility]; [facility] Work Phone: Start: 02-25-2023 Hemoglobin glycosylated a1c HgA1C , Office (22703) [facility]; [facility] Work Phone: Start: 02-25-2023 Procedure Education Eprescribed prescriptions (G8553) [facility]; [facility] Work Phone: Start: 02-25-2023 Provider Instructions for Treatment [facility]; [facility] Work Phone: Start: 10-25-2022 Procedure Education Eprescribed prescriptions (G8553) [facility]; [facility] Work Phone: Start: 03-15-2022 Procedure Education Eprescribed prescriptions (G8553) [facility]; [facility] Work Phone: Start: 03-15-2022 Provider Instructions for Treatment [facility]; [facility] Work Phone: Start: 03-08-2022 Procedure Education Eprescribed prescriptions (G8553) [facility]; [facility] Work Phone: Start: 03-08-2022 Provider Instructions for Treatment [facility] Work Phone: Start: 02-22-2022 Procedure Education Eprescribed prescriptions (G8553) [facility]; [facility] Work Phone: Start: 02-22-2022 Provider Instructions for Treatment [facility] Work Phone: Start: 02-05-2022 Procedure Education Eprescribed prescriptions (G8553) [facility]; [facility] Work Phone: Start: 02-05-2022 Provider Instructions for Treatment [facility] Work Phone: Start: 01-24-2022 Procedure Education Eprescribed prescriptions (G8553) [facility]; [facility] Work Phone: Start: 01-24-2022 Provider Instructions for Treatment [facility]; [facility] Work Phone: Start: 01-24-2022 Cyanocobalamin vitamin b-12 VITAMIN B-12 (CYANOCOBALAMIN) (62313) [facility]; [facility] Work Phone: Start: 01-24-2022 25 hydroxy includes fractions if performed CALCIFIDIOL (55159) VIT D 25 [facility]; [facility] Work Phone: Start: 01-24-2022 Assay of thyroid stimulating hormone tsh TSH (75689) [facility]; [facility] Work Phone: Start: 01-24-2022 Urnls dip stick/tablet reagent auto microscopy URINALYSIS, W/ MICRO (83019) [facility]; [facility] Work Phone: Start: 01-24-2022 Urine albumin quantitative MICROALBUMIN: CREATININE RATIO (46124) AND (83919) [facility]; [facility] Work Phone: Start: 01-24-2022 Comprehensive metabolic panel METABOLIC PANEL, COMPREHENSIVE (87547) [facility]; [facility] Work Phone: Start: 01-24-2022 Lipid panel LIPID PANEL (94505) [facility]; [facility] Work Phone: Start: 01-24-2022 Blood count complete auto&auto difrntl wbc CBC W/AUTO DIFF WBC (63538) [facility]; [facility] Work Phone: Start: 10-24-2021 Procedure Education Eprescribed prescriptions (G8553) [facility]; [facility] Work Phone: Start: 10-24-2021 Provider Instructions for Treatment Follow up in 3 months with [facility] Work Phone: Start: 10-24-2021 Blood occult fecal hgb deter ia qual feces 1-3 FECAL OCCULT- Tubes sent home (35156) [facility]; [facility] Work Phone: Start: 06-28-2021 Comprehensive metabolic panel Metabolic Panel, Comprehensive (20280) [facility]; [facility] Work Phone: Start: 05-30-2021 Procedure Education Eprescribed prescriptions (G8553) [facility]; [facility] Work Phone: Start: 05-30-2021 Provider Instructions for Treatment Reviewed Diagnostic Tests [facility]; [facility] Work Phone: Start: 04-25-2021 Procedure Education Eprescribed prescriptions (G8553) [facility]; [facility] Work Phone: Start: 04-25-2021 Provider Instructions for Treatment [facility]; [facility] Work Phone: Start: 04-25-2021 Blood occult fecal hgb deter ia qual feces 1-3 FECAL OCCULT- Tubes sent home (59120) [facility]; [facility] Work Phone: Start: 04-19-2021 Cyanocobalamin vitamin b-12 VITAMIN B12 AND FOLATES (94178) [facility]; [facility] Work Phone: Start: 04-19-2021 Urine albumin quantitative MICROALBUMIN: CREATININE RATIO (06822) AND (96704) [facility]; [facility] Work Phone: Start: 04-19-2021 Comprehensive metabolic panel Metabolic Panel, Comprehensive (45034) [facility]; [facility] Work Phone: Start: 01-17-2021 Procedure Education Eprescribed prescriptions (G8553) [facility]; [facility] Work Phone: Start: 01-17-2021 Provider Instructions for Treatment [facility]; [facility] Work Phone: Start: 01-04-2021 Renal function panel RENAL FUNCTION PANEL (26027) [facility]; [facility] Work Phone: Payers Date Payer Category Payer Medicare [id number] 2021 Unknown [id number] 2018 Medicare 2017 Unknown [id number] 2014 Medicare [id number] 2014 Unknown [id number] 1950 Unknown [id number] Medicare [id number] Unknown Social History Date Type Detail Facility Alcohol Use: Never smoker [facility] Work Phone: Caffeine Use [facility] Work Phone: Functional Status Date Assessment Result Facility 10-29-2018 LP-IR Score LP-IR Score 40 [facility] Work Phone: Clinical Notes Note Date & Type Note Facility [facility]; [facility] Work Phone: Instructions* Name Dates Details Patient Instructions Indication:Non-smoker Start:09-Dec-2020 Instruction Type:Provider Instructions for Treatment How to Access Health Informa tion Online using Patient Portal and [employer] Apps Indication:HTN (hypertension), benign Start:09-Dec-2020 Instruction Type:Patient Education How to access health informa tion online Indication:BMI 39.0-39.9,adult Start:01-Oct-2019 Instruction Type:Patient Education How to access health informa tion online - Detail Indication:BMI 39.0-39.9,adult Start:01-Oct-2019 Instruction Type:Patient Education Patient Instructions Indication:BMI 39.0-39.9,adult Start:01-Oct-2019 Instruction Type:Provider Instructions for Treatment How to access health informa tion online Indication:BMI 40.0-44.9, adult Start:31-Aug-2019 Instruction Type:Patient Education How to access health informa tion online - Detail Indication:BMI 40.0-44.9, adult Start:31-Aug-2019 Instruction Type:Patient Education Patient Instructions Indication:BMI 40.0-44.9, adult Start:31-Aug-2019 Instruction Type:Provider Instructions for Treatment How to access health informa tion online - Detail Indication:BMI 40.0-44.9, adult Start:27-Jul-2019 Instruction Type:Patient Education Patient Instructions Indication:BMI 40.0-44.9, adult Start:27-Jul-2019 Instruction Type:Provider Instructions for Treatment How to access health informa tion online Indication:Non-smoker Start:01-Dec-2018 Instruction Type:Patient Education How to access health informa tion online - Detail Indication:Non-smoker Start:01-Dec-2018 Instruction Type:Patient Education Patient Instructions Indication:Non-smoker Start:01-Dec-2018 Instruction Type:Provider Instructions for Treatment How to access health informa tion online Indication:BMI 39.0-39.9,adult Start:05-Nov-2018 Instruction Type:Patient Education How to access health informa tion online - Detail Indication:BMI 39.0-39.9,adult Start:05-Nov-2018 Instruction Type:Patient Education Patient Instructions Indication:BMI 39.0-39.9,adult Start:05-Nov-2018 Instruction Type:Provider Instructions for Treatment How to access health informa tion online Indication:Non-smoker Start:29-Oct-2018 Instruction Type:Patient Education How to access health informa tion online - Detail Indication:Non-smoker Start:29-Oct-2018 Instruction Type:Patient Education Patient Instructions Indication:Non-smoker Start:29-Oct-2018 Instruction Type:Provider Instructions for Treatment How to access health informa tion online - Detail Indication:Non-smoker Start:08-Oct-2018 Instruction Type:Patient Education How to access health informa tion online Indication:Non-smoker Start:08-Oct-2018 Instruction Type:Patient Education How to access health informa tion online Indication:Fever and chills Start:06-Aug-2017 Instruction Type:Patient Education How to access health informa tion online - Detail Indication:Fever and chills Start:06-Aug-2017 Instruction Type:Patient Education Patient Instructions Indication:Fever and chills Start:06-Aug-2017 Instruction Type:Provider Instructions for Treatment How to access health informa tion online Indication:Non-smoker Start:20-Sep-2016 Instruction Type:Patient Education How to access health informa tion online - Detail Indication:Non-smoker Start:20-Sep-2016 Instruction Type:Patient Education Patient Instructions Indication:Non-smoker Start:20-Sep-2016 Instruction Type:Provider Instructions for Treatment How to access health informa tion online Indication:Sinusitis Start:14-Apr-2015 Instruction Type:Patient Education How to access health informa tion online - Detail Indication:Sinusitis Start:14-Apr-2015 Instruction Type:Patient Education Patient Instructions Indication:Sinusitis Start:14-Apr-2015 Instruction Type:Provider Instructions for Treatment How to access health informa tion online Indication:Wheezing Start:19-Jan-2015 Instruction Type:Patient Education How to access health informa tion online - Detail Indication:Wheezing Start:19-Jan-2015 Instruction Type:Patient Education Patient Instructions Indication:Wheezing Start:19-Jan-2015 Instruction Type:Provider Instructions for Treatment Patient Instructions Indication:Red eye Start:05-Oct-2013 Instruction Type:Provider Instructions for Treatment Patient Instructions Indication:Knee Pain (Renamed from Arthralgia of knee) Start:29-Sep-2013 Instruction Type:Provider Instructions for Treatment Patient Instructions Indication:Obesity Start:01-Sep-2013 Instruction Type:Provider Instructions for Treatment Patient Instructions Indication:Flank pain Start:06-Jul-2013 Instruction Type:Provider Instructions for Treatment Patient Instructions Indication:Hematuria Start:01-Jun-2013 Instruction Type:Provider Instructions for Treatment Patient Instructions Indication:Dysthymic Start:26-May-2012 Instruction Type:Provider Instructions for Treatment [facility]; [facility] Work Phone: Instructions* Name Dates Details Patient Instructions Indication:Non-smoker Start:09-Dec-2020 Instruction Type:Provider Instructions for Treatment How to Access Health Informa tion Online using Patient Portal and [employer] Apps Indication:HTN (hypertension), benign Start:09-Dec-2020 Instruction Type:Patient Education How to access health informa tion online Indication:BMI 39.0-39.9,adult Start:01-Oct-2019 Instruction Type:Patient Education How to access health informa tion online - Detail Indication:BMI 39.0-39.9,adult Start:01-Oct-2019 Instruction Type:Patient Education Patient Instructions Indication:BMI 39.0-39.9,adult Start:01-Oct-2019 Instruction Type:Provider Instructions for Treatment How to access health informa tion online Indication:BMI 40.0-44.9, adult Start:31-Aug-2019 Instruction Type:Patient Education How to access health informa tion online - Detail Indication:BMI 40.0-44.9, adult Start:31-Aug-2019 Instruction Type:Patient Education Patient Instructions Indication:BMI 40.0-44.9, adult Start:31-Aug-2019 Instruction Type:Provider Instructions for Treatment How to access health informa tion online - Detail Indication:BMI 40.0-44.9, adult Start:27-Jul-2019 Instruction Type:Patient Education Patient Instructions Indication:BMI 40.0-44.9, adult Start:27-Jul-2019 Instruction Type:Provider Instructions for Treatment How to access health informa tion online Indication:Non-smoker Start:01-Dec-2018 Instruction Type:Patient Education How to access health informa tion online - Detail Indication:Non-smoker Start:01-Dec-2018 Instruction Type:Patient Education Patient Instructions Indication:Non-smoker Start:01-Dec-2018 Instruction Type:Provider Instructions for Treatment How to access health informa tion online Indication:BMI 39.0-39.9,adult Start:05-Nov-2018 Instruction Type:Patient Education How to access health informa tion online - Detail Indication:BMI 39.0-39.9,adult Start:05-Nov-2018 Instruction Type:Patient Education Patient Instructions Indication:BMI 39.0-39.9,adult Start:05-Nov-2018 Instruction Type:Provider Instructions for Treatment How to access health informa tion online Indication:Non-smoker Start:29-Oct-2018 Instruction Type:Patient Education How to access health informa tion online - Detail Indication:Non-smoker Start:29-Oct-2018 Instruction Type:Patient Education Patient Instructions Indication:Non-smoker Start:29-Oct-2018 Instruction Type:Provider Instructions for Treatment How to access health informa tion online - Detail Indication:Non-smoker Start:08-Oct-2018 Instruction Type:Patient Education How to access health informa tion online Indication:Non-smoker Start:08-Oct-2018 Instruction Type:Patient Education How to access health informa tion online Indication:Fever and chills Start:06-Aug-2017 Instruction Type:Patient Education How to access health informa tion online - Detail Indication:Fever and chills Start:06-Aug-2017 Instruction Type:Patient Education Patient Instructions Indication:Fever and chills Start:06-Aug-2017 Instruction Type:Provider Instructions for Treatment How to access health informa tion online Indication:Non-smoker Start:20-Sep-2016 Instruction Type:Patient Education How to access health informa tion online - Detail Indication:Non-smoker Start:20-Sep-2016 Instruction Type:Patient Education Patient Instructions Indication:Non-smoker Start:20-Sep-2016 Instruction Type:Provider Instructions for Treatment How to access health informa tion online Indication:Sinusitis Start:14-Apr-2015 Instruction Type:Patient Education How to access health informa tion online - Detail Indication:Sinusitis Start:14-Apr-2015 Instruction Type:Patient Education Patient Instructions Indication:Sinusitis Start:14-Apr-2015 Instruction Type:Provider Instructions for Treatment How to access health informa tion online Indication:Wheezing Start:19-Jan-2015 Instruction Type:Patient Education How to access health informa tion online - Detail Indication:Wheezing Start:19-Jan-2015 Instruction Type:Patient Education Patient Instructions Indication:Wheezing Start:19-Jan-2015 Instruction Type:Provider Instructions for Treatment Patient Instructions Indication:Red eye Start:05-Oct-2013 Instruction Type:Provider Instructions for Treatment Patient Instructions Indication:Knee Pain (Renamed from Arthralgia of knee) Start:29-Sep-2013 Instruction Type:Provider Instructions for Treatment Patient Instructions Indication:Obesity Start:01-Sep-2013 Instruction Type:Provider Instructions for Treatment Patient Instructions Indication:Flank pain Start:06-Jul-2013 Instruction Type:Provider Instructions for Treatment Patient Instructions Indication:Hematuria Start:01-Jun-2013 Instruction Type:Provider Instructions for Treatment Patient Instructions Indication:Dysthymic Start:26-May-2012 Instruction Type:Provider Instructions for Treatment [facility]; [facility] Work Phone: Instructions* Name Dates Details Patient Instructions Indication:CKD stage G3b/A1, GFR 30-44 and albumin creatinine ratio <30 mg/g Start:16-Dec-2020 Instruction Type:Provider Instructions for Treatment How to Access Health Informa tion Online using Patient Portal and [employer] Apps Indication:JESUS (obstructive sleep apnea) Start:16-Dec-2020 Instruction Type:Patient Education Patient Instructions Indication:Non-smoker Start:09-Dec-2020 Instruction Type:Provider Instructions for Treatment How to Access Health Informa tion Online using Patient Portal and [employer] Apps Indication:HTN (hypertension), benign Start:09-Dec-2020 Instruction Type:Patient Education How to access health informa tion online Indication:BMI 39.0-39.9,adult Start:01-Oct-2019 Instruction Type:Patient Education How to access health informa tion online - Detail Indication:BMI 39.0-39.9,adult Start:01-Oct-2019 Instruction Type:Patient Education Patient Instructions Indication:BMI 39.0-39.9,adult Start:01-Oct-2019 Instruction Type:Provider Instructions for Treatment How to access health informa tion online Indication:BMI 40.0-44.9, adult Start:31-Aug-2019 Instruction Type:Patient Education How to access health informa tion online - Detail Indication:BMI 40.0-44.9, adult Start:31-Aug-2019 Instruction Type:Patient Education Patient Instructions Indication:BMI 40.0-44.9, adult Start:31-Aug-2019 Instruction Type:Provider Instructions for Treatment How to access health informa tion online - Detail Indication:BMI 40.0-44.9, adult Start:27-Jul-2019 Instruction Type:Patient Education Patient Instructions Indication:BMI 40.0-44.9, adult Start:27-Jul-2019 Instruction Type:Provider Instructions for Treatment How to access health informa tion online Indication:Non-smoker Start:01-Dec-2018 Instruction Type:Patient Education How to access health informa tion online - Detail Indication:Non-smoker Start:01-Dec-2018 Instruction Type:Patient Education Patient Instructions Indication:Non-smoker Start:01-Dec-2018 Instruction Type:Provider Instructions for Treatment How to access health informa tion online Indication:BMI 39.0-39.9,adult Start:05-Nov-2018 Instruction Type:Patient Education How to access health informa tion online - Detail Indication:BMI 39.0-39.9,adult Start:05-Nov-2018 Instruction Type:Patient Education Patient Instructions Indication:BMI 39.0-39.9,adult Start:05-Nov-2018 Instruction Type:Provider Instructions for Treatment How to access health informa tion online Indication:Non-smoker Start:29-Oct-2018 Instruction Type:Patient Education How to access health informa tion online - Detail Indication:Non-smoker Start:29-Oct-2018 Instruction Type:Patient Education Patient Instructions Indication:Non-smoker Start:29-Oct-2018 Instruction Type:Provider Instructions for Treatment How to access health informa tion online - Detail Indication:Non-smoker Start:08-Oct-2018 Instruction Type:Patient Education How to access health informa tion online Indication:Non-smoker Start:08-Oct-2018 Instruction Type:Patient Education How to access health informa tion online Indication:Fever and chills Start:06-Aug-2017 Instruction Type:Patient Education How to access health informa tion online - Detail Indication:Fever and chills Start:06-Aug-2017 Instruction Type:Patient Education Patient Instructions Indication:Fever and chills Start:06-Aug-2017 Instruction Type:Provider Instructions for Treatment How to access health informa tion online Indication:Non-smoker Start:20-Sep-2016 Instruction Type:Patient Education How to access health informa tion online - Detail Indication:Non-smoker Start:20-Sep-2016 Instruction Type:Patient Education Patient Instructions Indication:Non-smoker Start:20-Sep-2016 Instruction Type:Provider Instructions for Treatment How to access health informa tion online Indication:Sinusitis Start:14-Apr-2015 Instruction Type:Patient Education How to access health informa tion online - Detail Indication:Sinusitis Start:14-Apr-2015 Instruction Type:Patient Education Patient Instructions Indication:Sinusitis Start:14-Apr-2015 Instruction Type:Provider Instructions for Treatment How to access health informa tion online Indication:Wheezing Start:19-Jan-2015 Instruction Type:Patient Education How to access health informa tion online - Detail Indication:Wheezing Start:19-Jan-2015 Instruction Type:Patient Education Patient Instructions Indication:Wheezing Start:19-Jan-2015 Instruction Type:Provider Instructions for Treatment Patient Instructions Indication:Red eye Start:05-Oct-2013 Instruction Type:Provider Instructions for Treatment Patient Instructions Indication:Knee Pain (Renamed from Arthralgia of knee) Start:29-Sep-2013 Instruction Type:Provider Instructions for Treatment Patient Instructions Indication:Obesity Start:01-Sep-2013 Instruction Type:Provider Instructions for Treatment Patient Instructions Indication:Flank pain Start:06-Jul-2013 Instruction Type:Provider Instructions for Treatment Patient Instructions Indication:Hematuria Start:01-Jun-2013 Instruction Type:Provider Instructions for Treatment Patient Instructions Indication:Dysthymic Start:26-May-2012 Instruction Type:Provider Instructions for Treatment [facility]; [facility] Work Phone: Instructions* Name Dates Details Patient Instructions Indication:CKD stage G3b/A1, GFR 30-44 and albumin creatinine ratio <30 mg/g Start:16-Dec-2020 Instruction Type:Provider Instructions for Treatment How to Access Health Informa tion Online using Patient Portal and [employer] Apps Indication:JESUS (obstructive sleep apnea) Start:16-Dec-2020 Instruction Type:Patient Education Patient Instructions Indication:Non-smoker Start:09-Dec-2020 Instruction Type:Provider Instructions for Treatment How to Access Health Informa tion Online using Patient Portal and [employer] Apps Indication:HTN (hypertension), benign Start:09-Dec-2020 Instruction Type:Patient Education How to access health informa tion online Indication:BMI 39.0-39.9,adult Start:01-Oct-2019 Instruction Type:Patient Education How to access health informa tion online - Detail Indication:BMI 39.0-39.9,adult Start:01-Oct-2019 Instruction Type:Patient Education Patient Instructions Indication:BMI 39.0-39.9,adult Start:01-Oct-2019 Instruction Type:Provider Instructions for Treatment How to access health informa tion online Indication:BMI 40.0-44.9, adult Start:31-Aug-2019 Instruction Type:Patient Education How to access health informa tion online - Detail Indication:BMI 40.0-44.9, adult Start:31-Aug-2019 Instruction Type:Patient Education Patient Instructions Indication:BMI 40.0-44.9, adult Start:31-Aug-2019 Instruction Type:Provider Instructions for Treatment How to access health informa tion online - Detail Indication:BMI 40.0-44.9, adult Start:27-Jul-2019 Instruction Type:Patient Education Patient Instructions Indication:BMI 40.0-44.9, adult Start:27-Jul-2019 Instruction Type:Provider Instructions for Treatment How to access health informa tion online Indication:Non-smoker Start:01-Dec-2018 Instruction Type:Patient Education How to access health informa tion online - Detail Indication:Non-smoker Start:01-Dec-2018 Instruction Type:Patient Education Patient Instructions Indication:Non-smoker Start:01-Dec-2018 Instruction Type:Provider Instructions for Treatment How to access health informa tion online Indication:BMI 39.0-39.9,adult Start:05-Nov-2018 Instruction Type:Patient Education How to access health informa tion online - Detail Indication:BMI 39.0-39.9,adult Start:05-Nov-2018 Instruction Type:Patient Education Patient Instructions Indication:BMI 39.0-39.9,adult Start:05-Nov-2018 Instruction Type:Provider Instructions for Treatment How to access health informa tion online Indication:Non-smoker Start:29-Oct-2018 Instruction Type:Patient Education How to access health informa tion online - Detail Indication:Non-smoker Start:29-Oct-2018 Instruction Type:Patient Education Patient Instructions Indication:Non-smoker Start:29-Oct-2018 Instruction Type:Provider Instructions for Treatment How to access health informa tion online - Detail Indication:Non-smoker Start:08-Oct-2018 Instruction Type:Patient Education How to access health informa tion online Indication:Non-smoker Start:08-Oct-2018 Instruction Type:Patient Education How to access health informa tion online Indication:Fever and chills Start:06-Aug-2017 Instruction Type:Patient Education How to access health informa tion online - Detail Indication:Fever and chills Start:06-Aug-2017 Instruction Type:Patient Education Patient Instructions Indication:Fever and chills Start:06-Aug-2017 Instruction Type:Provider Instructions for Treatment How to access health informa tion online Indication:Non-smoker Start:20-Sep-2016 Instruction Type:Patient Education How to access health informa tion online - Detail Indication:Non-smoker Start:20-Sep-2016 Instruction Type:Patient Education Patient Instructions Indication:Non-smoker Start:20-Sep-2016 Instruction Type:Provider Instructions for Treatment How to access health informa tion online Indication:Sinusitis Start:14-Apr-2015 Instruction Type:Patient Education How to access health informa tion online - Detail Indication:Sinusitis Start:14-Apr-2015 Instruction Type:Patient Education Patient Instructions Indication:Sinusitis Start:14-Apr-2015 Instruction Type:Provider Instructions for Treatment How to access health informa tion online Indication:Wheezing Start:19-Jan-2015 Instruction Type:Patient Education How to access health informa tion online - Detail Indication:Wheezing Start:19-Jan-2015 Instruction Type:Patient Education Patient Instructions Indication:Wheezing Start:19-Jan-2015 Instruction Type:Provider Instructions for Treatment Patient Instructions Indication:Red eye Start:05-Oct-2013 Instruction Type:Provider Instructions for Treatment Patient Instructions Indication:Knee Pain (Renamed from Arthralgia of knee) Start:29-Sep-2013 Instruction Type:Provider Instructions for Treatment Patient Instructions Indication:Obesity Start:01-Sep-2013 Instruction Type:Provider Instructions for Treatment Patient Instructions Indication:Flank pain Start:06-Jul-2013 Instruction Type:Provider Instructions for Treatment Patient Instructions Indication:Hematuria Start:01-Jun-2013 Instruction Type:Provider Instructions for Treatment Patient Instructions Indication:Dysthymic Start:26-May-2012 Instruction Type:Provider Instructions for Treatment [facility]; [facility] Work Phone: Instructions* Name Dates Details Patient Instructions Indication:CKD stage G3b/A1, GFR 30-44 and albumin creatinine ratio <30 mg/g Start:16-Dec-2020 Instruction Type:Provider Instructions for Treatment How to Access Health Informa tion Online using Patient Portal and [employer] Apps Indication:JESUS (obstructive sleep apnea) Start:16-Dec-2020 Instruction Type:Patient Education Patient Instructions Indication:Non-smoker Start:09-Dec-2020 Instruction Type:Provider Instructions for Treatment How to Access Health Informa tion Online using Patient Portal and [employer] Apps Indication:HTN (hypertension), benign Start:09-Dec-2020 Instruction Type:Patient Education How to access health informa tion online Indication:BMI 39.0-39.9,adult Start:01-Oct-2019 Instruction Type:Patient Education How to access health informa tion online - Detail Indication:BMI 39.0-39.9,adult Start:01-Oct-2019 Instruction Type:Patient Education Patient Instructions Indication:BMI 39.0-39.9,adult Start:01-Oct-2019 Instruction Type:Provider Instructions for Treatment How to access health informa tion online Indication:BMI 40.0-44.9, adult Start:31-Aug-2019 Instruction Type:Patient Education How to access health informa tion online - Detail Indication:BMI 40.0-44.9, adult Start:31-Aug-2019 Instruction Type:Patient Education Patient Instructions Indication:BMI 40.0-44.9, adult Start:31-Aug-2019 Instruction Type:Provider Instructions for Treatment How to access health informa tion online - Detail Indication:BMI 40.0-44.9, adult Start:27-Jul-2019 Instruction Type:Patient Education Patient Instructions Indication:BMI 40.0-44.9, adult Start:27-Jul-2019 Instruction Type:Provider Instructions for Treatment How to access health informa tion online Indication:Non-smoker Start:01-Dec-2018 Instruction Type:Patient Education How to access health informa tion online - Detail Indication:Non-smoker Start:01-Dec-2018 Instruction Type:Patient Education Patient Instructions Indication:Non-smoker Start:01-Dec-2018 Instruction Type:Provider Instructions for Treatment How to access health informa tion online Indication:BMI 39.0-39.9,adult Start:05-Nov-2018 Instruction Type:Patient Education How to access health informa tion online - Detail Indication:BMI 39.0-39.9,adult Start:05-Nov-2018 Instruction Type:Patient Education Patient Instructions Indication:BMI 39.0-39.9,adult Start:05-Nov-2018 Instruction Type:Provider Instructions for Treatment How to access health informa tion online Indication:Non-smoker Start:29-Oct-2018 Instruction Type:Patient Education How to access health informa tion online - Detail Indication:Non-smoker Start:29-Oct-2018 Instruction Type:Patient Education Patient Instructions Indication:Non-smoker Start:29-Oct-2018 Instruction Type:Provider Instructions for Treatment How to access health informa tion online - Detail Indication:Non-smoker Start:08-Oct-2018 Instruction Type:Patient Education How to access health informa tion online Indication:Non-smoker Start:08-Oct-2018 Instruction Type:Patient Education How to access health informa tion online Indication:Fever and chills Start:06-Aug-2017 Instruction Type:Patient Education How to access health informa tion online - Detail Indication:Fever and chills Start:06-Aug-2017 Instruction Type:Patient Education Patient Instructions Indication:Fever and chills Start:06-Aug-2017 Instruction Type:Provider Instructions for Treatment How to access health informa tion online Indication:Non-smoker Start:20-Sep-2016 Instruction Type:Patient Education How to access health informa tion online - Detail Indication:Non-smoker Start:20-Sep-2016 Instruction Type:Patient Education Patient Instructions Indication:Non-smoker Start:20-Sep-2016 Instruction Type:Provider Instructions for Treatment How to access health informa tion online Indication:Sinusitis Start:14-Apr-2015 Instruction Type:Patient Education How to access health informa tion online - Detail Indication:Sinusitis Start:14-Apr-2015 Instruction Type:Patient Education Patient Instructions Indication:Sinusitis Start:14-Apr-2015 Instruction Type:Provider Instructions for Treatment How to access health informa tion online Indication:Wheezing Start:19-Jan-2015 Instruction Type:Patient Education How to access health informa tion online - Detail Indication:Wheezing Start:19-Jan-2015 Instruction Type:Patient Education Patient Instructions Indication:Wheezing Start:19-Jan-2015 Instruction Type:Provider Instructions for Treatment Patient Instructions Indication:Red eye Start:05-Oct-2013 Instruction Type:Provider Instructions for Treatment Patient Instructions Indication:Knee Pain (Renamed from Arthralgia of knee) Start:29-Sep-2013 Instruction Type:Provider Instructions for Treatment Patient Instructions Indication:Obesity Start:01-Sep-2013 Instruction Type:Provider Instructions for Treatment Patient Instructions Indication:Flank pain Start:06-Jul-2013 Instruction Type:Provider Instructions for Treatment Patient Instructions Indication:Hematuria Start:01-Jun-2013 Instruction Type:Provider Instructions for Treatment Patient Instructions Indication:Dysthymic Start:26-May-2012 Instruction Type:Provider Instructions for Treatment [facility]; [facility] Work Phone: Instructions* Name Dates Details Patient Instructions Indication:CKD stage G3b/A1, GFR 30-44 and albumin creatinine ratio <30 mg/g Start:16-Dec-2020 Instruction Type:Provider Instructions for Treatment How to Access Health Informa tion Online using Patient Portal and [employer] Apps Indication:JESUS (obstructive sleep apnea) Start:16-Dec-2020 Instruction Type:Patient Education Patient Instructions Indication:Non-smoker Start:09-Dec-2020 Instruction Type:Provider Instructions for Treatment How to Access Health Informa tion Online using Patient Portal and [employer] Apps Indication:HTN (hypertension), benign Start:09-Dec-2020 Instruction Type:Patient Education How to access health informa tion online Indication:BMI 39.0-39.9,adult Start:01-Oct-2019 Instruction Type:Patient Education How to access health informa tion online - Detail Indication:BMI 39.0-39.9,adult Start:01-Oct-2019 Instruction Type:Patient Education Patient Instructions Indication:BMI 39.0-39.9,adult Start:01-Oct-2019 Instruction Type:Provider Instructions for Treatment How to access health informa tion online Indication:BMI 40.0-44.9, adult Start:31-Aug-2019 Instruction Type:Patient Education How to access health informa tion online - Detail Indication:BMI 40.0-44.9, adult Start:31-Aug-2019 Instruction Type:Patient Education Patient Instructions Indication:BMI 40.0-44.9, adult Start:31-Aug-2019 Instruction Type:Provider Instructions for Treatment How to access health informa tion online - Detail Indication:BMI 40.0-44.9, adult Start:27-Jul-2019 Instruction Type:Patient Education Patient Instructions Indication:BMI 40.0-44.9, adult Start:27-Jul-2019 Instruction Type:Provider Instructions for Treatment How to access health informa tion online Indication:Non-smoker Start:01-Dec-2018 Instruction Type:Patient Education How to access health informa tion online - Detail Indication:Non-smoker Start:01-Dec-2018 Instruction Type:Patient Education Patient Instructions Indication:Non-smoker Start:01-Dec-2018 Instruction Type:Provider Instructions for Treatment How to access health informa tion online Indication:BMI 39.0-39.9,adult Start:05-Nov-2018 Instruction Type:Patient Education How to access health informa tion online - Detail Indication:BMI 39.0-39.9,adult Start:05-Nov-2018 Instruction Type:Patient Education Patient Instructions Indication:BMI 39.0-39.9,adult Start:05-Nov-2018 Instruction Type:Provider Instructions for Treatment How to access health informa tion online Indication:Non-smoker Start:29-Oct-2018 Instruction Type:Patient Education How to access health informa tion online - Detail Indication:Non-smoker Start:29-Oct-2018 Instruction Type:Patient Education Patient Instructions Indication:Non-smoker Start:29-Oct-2018 Instruction Type:Provider Instructions for Treatment How to access health informa tion online - Detail Indication:Non-smoker Start:08-Oct-2018 Instruction Type:Patient Education How to access health informa tion online Indication:Non-smoker Start:08-Oct-2018 Instruction Type:Patient Education How to access health informa tion online Indication:Fever and chills Start:06-Aug-2017 Instruction Type:Patient Education How to access health informa tion online - Detail Indication:Fever and chills Start:06-Aug-2017 Instruction Type:Patient Education Patient Instructions Indication:Fever and chills Start:06-Aug-2017 Instruction Type:Provider Instructions for Treatment How to access health informa tion online Indication:Non-smoker Start:20-Sep-2016 Instruction Type:Patient Education How to access health informa tion online - Detail Indication:Non-smoker Start:20-Sep-2016 Instruction Type:Patient Education Patient Instructions Indication:Non-smoker Start:20-Sep-2016 Instruction Type:Provider Instructions for Treatment How to access health informa tion online Indication:Sinusitis Start:14-Apr-2015 Instruction Type:Patient Education How to access health informa tion online - Detail Indication:Sinusitis Start:14-Apr-2015 Instruction Type:Patient Education Patient Instructions Indication:Sinusitis Start:14-Apr-2015 Instruction Type:Provider Instructions for Treatment How to access health informa tion online Indication:Wheezing Start:19-Jan-2015 Instruction Type:Patient Education How to access health informa tion online - Detail Indication:Wheezing Start:19-Jan-2015 Instruction Type:Patient Education Patient Instructions Indication:Wheezing Start:19-Jan-2015 Instruction Type:Provider Instructions for Treatment Patient Instructions Indication:Red eye Start:05-Oct-2013 Instruction Type:Provider Instructions for Treatment Patient Instructions Indication:Knee Pain (Renamed from Arthralgia of knee) Start:29-Sep-2013 Instruction Type:Provider Instructions for Treatment Patient Instructions Indication:Obesity Start:01-Sep-2013 Instruction Type:Provider Instructions for Treatment Patient Instructions Indication:Flank pain Start:06-Jul-2013 Instruction Type:Provider Instructions for Treatment Patient Instructions Indication:Hematuria Start:01-Jun-2013 Instruction Type:Provider Instructions for Treatment Patient Instructions Indication:Dysthymic Start:26-May-2012 Instruction Type:Provider Instructions for Treatment [facility]; [facility] Work Phone: Instructions* Name Dates Details Patient Instructions Indication:Non-smoker Start:17-Jan-2021 Instruction Type:Provider Instructions for Treatment How to Access Health Informa tion Online using Patient Portal and [employer] Apps Indication:Non-smoker Start:17-Jan-2021 Instruction Type:Patient Education Patient Instructions Indication:CKD stage G3b/A1, GFR 30-44 and albumin creatinine ratio <30 mg/g Start:16-Dec-2020 Instruction Type:Provider Instructions for Treatment How to Access Health Informa tion Online using Patient Portal and [employer] Apps Indication:JESUS (obstructive sleep apnea) Start:16-Dec-2020 Instruction Type:Patient Education Patient Instructions Indication:Non-smoker Start:09-Dec-2020 Instruction Type:Provider Instructions for Treatment How to Access Health Informa tion Online using Patient Portal and [employer] Apps Indication:HTN (hypertension), benign Start:09-Dec-2020 Instruction Type:Patient Education How to access health informa tion online Indication:BMI 39.0-39.9,adult Start:01-Oct-2019 Instruction Type:Patient Education How to access health informa tion online - Detail Indication:BMI 39.0-39.9,adult Start:01-Oct-2019 Instruction Type:Patient Education Patient Instructions Indication:BMI 39.0-39.9,adult Start:01-Oct-2019 Instruction Type:Provider Instructions for Treatment How to access health informa tion online Indication:BMI 40.0-44.9, adult Start:31-Aug-2019 Instruction Type:Patient Education How to access health informa tion online - Detail Indication:BMI 40.0-44.9, adult Start:31-Aug-2019 Instruction Type:Patient Education Patient Instructions Indication:BMI 40.0-44.9, adult Start:31-Aug-2019 Instruction Type:Provider Instructions for Treatment How to access health informa tion online - Detail Indication:BMI 40.0-44.9, adult Start:27-Jul-2019 Instruction Type:Patient Education Patient Instructions Indication:BMI 40.0-44.9, adult Start:27-Jul-2019 Instruction Type:Provider Instructions for Treatment How to access health informa tion online Indication:Non-smoker Start:01-Dec-2018 Instruction Type:Patient Education How to access health informa tion online - Detail Indication:Non-smoker Start:01-Dec-2018 Instruction Type:Patient Education Patient Instructions Indication:Non-smoker Start:01-Dec-2018 Instruction Type:Provider Instructions for Treatment How to access health informa tion online Indication:BMI 39.0-39.9,adult Start:05-Nov-2018 Instruction Type:Patient Education How to access health informa tion online - Detail Indication:BMI 39.0-39.9,adult Start:05-Nov-2018 Instruction Type:Patient Education Patient Instructions Indication:BMI 39.0-39.9,adult Start:05-Nov-2018 Instruction Type:Provider Instructions for Treatment How to access health informa tion online Indication:Non-smoker Start:29-Oct-2018 Instruction Type:Patient Education How to access health informa tion online - Detail Indication:Non-smoker Start:29-Oct-2018 Instruction Type:Patient Education Patient Instructions Indication:Non-smoker Start:29-Oct-2018 Instruction Type:Provider Instructions for Treatment How to access health informa tion online - Detail Indication:Non-smoker Start:08-Oct-2018 Instruction Type:Patient Education How to access health informa tion online Indication:Non-smoker Start:08-Oct-2018 Instruction Type:Patient Education How to access health informa tion online Indication:Fever and chills Start:06-Aug-2017 Instruction Type:Patient Education How to access health informa tion online - Detail Indication:Fever and chills Start:06-Aug-2017 Instruction Type:Patient Education Patient Instructions Indication:Fever and chills Start:06-Aug-2017 Instruction Type:Provider Instructions for Treatment How to access health informa tion online Indication:Non-smoker Start:20-Sep-2016 Instruction Type:Patient Education How to access health informa tion online - Detail Indication:Non-smoker Start:20-Sep-2016 Instruction Type:Patient Education Patient Instructions Indication:Non-smoker Start:20-Sep-2016 Instruction Type:Provider Instructions for Treatment How to access health informa tion online Indication:Sinusitis Start:14-Apr-2015 Instruction Type:Patient Education How to access health informa tion online - Detail Indication:Sinusitis Start:14-Apr-2015 Instruction Type:Patient Education Patient Instructions Indication:Sinusitis Start:14-Apr-2015 Instruction Type:Provider Instructions for Treatment How to access health informa tion online Indication:Wheezing Start:19-Jan-2015 Instruction Type:Patient Education How to access health informa tion online - Detail Indication:Wheezing Start:19-Jan-2015 Instruction Type:Patient Education Patient Instructions Indication:Wheezing Start:19-Jan-2015 Instruction Type:Provider Instructions for Treatment Patient Instructions Indication:Red eye Start:05-Oct-2013 Instruction Type:Provider Instructions for Treatment Patient Instructions Indication:Knee Pain (Renamed from Arthralgia of knee) Start:29-Sep-2013 Instruction Type:Provider Instructions for Treatment Patient Instructions Indication:Obesity Start:01-Sep-2013 Instruction Type:Provider Instructions for Treatment Patient Instructions Indication:Flank pain Start:06-Jul-2013 Instruction Type:Provider Instructions for Treatment Patient Instructions Indication:Hematuria Start:01-Jun-2013 Instruction Type:Provider Instructions for Treatment Patient Instructions Indication:Dysthymic Start:26-May-2012 Instruction Type:Provider Instructions for Treatment [facility]; [facility] Work Phone: Instructions* Name Dates Details Patient Instructions Indication:Non-smoker Start:17-Jan-2021 Instruction Type:Provider Instructions for Treatment How to Access Health Informa tion Online using Patient Portal and [employer] Apps Indication:Non-smoker Start:17-Jan-2021 Instruction Type:Patient Education Patient Instructions Indication:CKD stage G3b/A1, GFR 30-44 and albumin creatinine ratio <30 mg/g Start:16-Dec-2020 Instruction Type:Provider Instructions for Treatment How to Access Health Informa tion Online using Patient Portal and [employer] Apps Indication:JESUS (obstructive sleep apnea) Start:16-Dec-2020 Instruction Type:Patient Education Patient Instructions Indication:Non-smoker Start:09-Dec-2020 Instruction Type:Provider Instructions for Treatment How to Access Health Informa tion Online using Patient Portal and [employer] Apps Indication:HTN (hypertension), benign Start:09-Dec-2020 Instruction Type:Patient Education How to access health informa tion online Indication:BMI 39.0-39.9,adult Start:01-Oct-2019 Instruction Type:Patient Education How to access health informa tion online - Detail Indication:BMI 39.0-39.9,adult Start:01-Oct-2019 Instruction Type:Patient Education Patient Instructions Indication:BMI 39.0-39.9,adult Start:01-Oct-2019 Instruction Type:Provider Instructions for Treatment How to access health informa tion online Indication:BMI 40.0-44.9, adult Start:31-Aug-2019 Instruction Type:Patient Education How to access health informa tion online - Detail Indication:BMI 40.0-44.9, adult Start:31-Aug-2019 Instruction Type:Patient Education Patient Instructions Indication:BMI 40.0-44.9, adult Start:31-Aug-2019 Instruction Type:Provider Instructions for Treatment How to access health informa tion online - Detail Indication:BMI 40.0-44.9, adult Start:27-Jul-2019 Instruction Type:Patient Education Patient Instructions Indication:BMI 40.0-44.9, adult Start:27-Jul-2019 Instruction Type:Provider Instructions for Treatment How to access health informa tion online Indication:Non-smoker Start:01-Dec-2018 Instruction Type:Patient Education How to access health informa tion online - Detail Indication:Non-smoker Start:01-Dec-2018 Instruction Type:Patient Education Patient Instructions Indication:Non-smoker Start:01-Dec-2018 Instruction Type:Provider Instructions for Treatment How to access health informa tion online Indication:BMI 39.0-39.9,adult Start:05-Nov-2018 Instruction Type:Patient Education How to access health informa tion online - Detail Indication:BMI 39.0-39.9,adult Start:05-Nov-2018 Instruction Type:Patient Education Patient Instructions Indication:BMI 39.0-39.9,adult Start:05-Nov-2018 Instruction Type:Provider Instructions for Treatment How to access health informa tion online Indication:Non-smoker Start:29-Oct-2018 Instruction Type:Patient Education How to access health informa tion online - Detail Indication:Non-smoker Start:29-Oct-2018 Instruction Type:Patient Education Patient Instructions Indication:Non-smoker Start:29-Oct-2018 Instruction Type:Provider Instructions for Treatment How to access health informa tion online - Detail Indication:Non-smoker Start:08-Oct-2018 Instruction Type:Patient Education How to access health informa tion online Indication:Non-smoker Start:08-Oct-2018 Instruction Type:Patient Education How to access health informa tion online Indication:Fever and chills Start:06-Aug-2017 Instruction Type:Patient Education How to access health informa tion online - Detail Indication:Fever and chills Start:06-Aug-2017 Instruction Type:Patient Education Patient Instructions Indication:Fever and chills Start:06-Aug-2017 Instruction Type:Provider Instructions for Treatment How to access health informa tion online Indication:Non-smoker Start:20-Sep-2016 Instruction Type:Patient Education How to access health informa tion online - Detail Indication:Non-smoker Start:20-Sep-2016 Instruction Type:Patient Education Patient Instructions Indication:Non-smoker Start:20-Sep-2016 Instruction Type:Provider Instructions for Treatment How to access health informa tion online Indication:Sinusitis Start:14-Apr-2015 Instruction Type:Patient Education How to access health informa tion online - Detail Indication:Sinusitis Start:14-Apr-2015 Instruction Type:Patient Education Patient Instructions Indication:Sinusitis Start:14-Apr-2015 Instruction Type:Provider Instructions for Treatment How to access health informa tion online Indication:Wheezing Start:19-Jan-2015 Instruction Type:Patient Education How to access health informa tion online - Detail Indication:Wheezing Start:19-Jan-2015 Instruction Type:Patient Education Patient Instructions Indication:Wheezing Start:19-Jan-2015 Instruction Type:Provider Instructions for Treatment Patient Instructions Indication:Red eye Start:05-Oct-2013 Instruction Type:Provider Instructions for Treatment Patient Instructions Indication:Knee Pain (Renamed from Arthralgia of knee) Start:29-Sep-2013 Instruction Type:Provider Instructions for Treatment Patient Instructions Indication:Obesity Start:01-Sep-2013 Instruction Type:Provider Instructions for Treatment Patient Instructions Indication:Flank pain Start:06-Jul-2013 Instruction Type:Provider Instructions for Treatment Patient Instructions Indication:Hematuria Start:01-Jun-2013 Instruction Type:Provider Instructions for Treatment Patient Instructions Indication:Dysthymic Start:26-May-2012 Instruction Type:Provider Instructions for Treatment [facility]; [facility] Work Phone: Instructions* Name Dates Details Patient Instructions Indication:BMI 39.0-39.9,adult Start:30-May-2021 Instruction Type:Provider Instructions for Treatment How to Access Health Informa tion Online using Patient Portal and [employer] Apps Indication:BMI 39.0-39.9,adult Start:30-May-2021 Instruction Type:Patient Education Patient Instructions Indication:Encounter for screening for malignant neoplasm of colon (Renamed from Special screening for malignant neoplasms, colon) Start:25-Apr-2021 Instruction Type:Provider Instructions for Treatment How to Access Health Informa tion Online using Patient Portal and [employer] Apps Indication:Non-smoker Start:25-Apr-2021 Instruction Type:Patient Education Patient Instructions Indication:Non-smoker Start:17-Jan-2021 Instruction Type:Provider Instructions for Treatment How to Access Health Informa tion Online using Patient Portal and [employer] Apps Indication:Non-smoker Start:17-Jan-2021 Instruction Type:Patient Education Patient Instructions Indication:CKD stage G3b/A1, GFR 30-44 and albumin creatinine ratio <30 mg/g Start:16-Dec-2020 Instruction Type:Provider Instructions for Treatment How to Access Health Informa tion Online using Patient Portal and [employer] Apps Indication:JESUS (obstructive sleep apnea) Start:16-Dec-2020 Instruction Type:Patient Education Patient Instructions Indication:Non-smoker Start:09-Dec-2020 Instruction Type:Provider Instructions for Treatment How to Access Health Informa tion Online using Patient Portal and [employer] Apps Indication:HTN (hypertension), benign Start:09-Dec-2020 Instruction Type:Patient Education How to access health informa tion online Indication:BMI 39.0-39.9,adult Start:01-Oct-2019 Instruction Type:Patient Education How to access health informa tion online - Detail Indication:BMI 39.0-39.9,adult Start:01-Oct-2019 Instruction Type:Patient Education Patient Instructions Indication:BMI 39.0-39.9,adult Start:01-Oct-2019 Instruction Type:Provider Instructions for Treatment How to access health informa tion online Indication:BMI 40.0-44.9, adult Start:31-Aug-2019 Instruction Type:Patient Education How to access health informa tion online - Detail Indication:BMI 40.0-44.9, adult Start:31-Aug-2019 Instruction Type:Patient Education Patient Instructions Indication:BMI 40.0-44.9, adult Start:31-Aug-2019 Instruction Type:Provider Instructions for Treatment How to access health informa tion online - Detail Indication:BMI 40.0-44.9, adult Start:27-Jul-2019 Instruction Type:Patient Education Patient Instructions Indication:BMI 40.0-44.9, adult Start:27-Jul-2019 Instruction Type:Provider Instructions for Treatment How to access health informa tion online Indication:Non-smoker Start:01-Dec-2018 Instruction Type:Patient Education How to access health informa tion online - Detail Indication:Non-smoker Start:01-Dec-2018 Instruction Type:Patient Education Patient Instructions Indication:Non-smoker Start:01-Dec-2018 Instruction Type:Provider Instructions for Treatment How to access health informa tion online Indication:BMI 39.0-39.9,adult Start:05-Nov-2018 Instruction Type:Patient Education How to access health informa tion online - Detail Indication:BMI 39.0-39.9,adult Start:05-Nov-2018 Instruction Type:Patient Education Patient Instructions Indication:BMI 39.0-39.9,adult Start:05-Nov-2018 Instruction Type:Provider Instructions for Treatment How to access health informa tion online Indication:Non-smoker Start:29-Oct-2018 Instruction Type:Patient Education How to access health informa tion online - Detail Indication:Non-smoker Start:29-Oct-2018 Instruction Type:Patient Education Patient Instructions Indication:Non-smoker Start:29-Oct-2018 Instruction Type:Provider Instructions for Treatment How to access health informa tion online - Detail Indication:Non-smoker Start:08-Oct-2018 Instruction Type:Patient Education How to access health informa tion online Indication:Non-smoker Start:08-Oct-2018 Instruction Type:Patient Education How to access health informa tion online Indication:Fever and chills Start:06-Aug-2017 Instruction Type:Patient Education How to access health informa tion online - Detail Indication:Fever and chills Start:06-Aug-2017 Instruction Type:Patient Education Patient Instructions Indication:Fever and chills Start:06-Aug-2017 Instruction Type:Provider Instructions for Treatment How to access health informa tion online Indication:Non-smoker Start:20-Sep-2016 Instruction Type:Patient Education How to access health informa tion online - Detail Indication:Non-smoker Start:20-Sep-2016 Instruction Type:Patient Education Patient Instructions Indication:Non-smoker Start:20-Sep-2016 Instruction Type:Provider Instructions for Treatment How to access health informa tion online Indication:Sinusitis Start:14-Apr-2015 Instruction Type:Patient Education How to access health informa tion online - Detail Indication:Sinusitis Start:14-Apr-2015 Instruction Type:Patient Education Patient Instructions Indication:Sinusitis Start:14-Apr-2015 Instruction Type:Provider Instructions for Treatment How to access health informa tion online Indication:Wheezing Start:19-Jan-2015 Instruction Type:Patient Education How to access health informa tion online - Detail Indication:Wheezing Start:19-Jan-2015 Instruction Type:Patient Education Patient Instructions Indication:Wheezing Start:19-Jan-2015 Instruction Type:Provider Instructions for Treatment Patient Instructions Indication:Red eye Start:05-Oct-2013 Instruction Type:Provider Instructions for Treatment Patient Instructions Indication:Knee Pain (Renamed from Arthralgia of knee) Start:29-Sep-2013 Instruction Type:Provider Instructions for Treatment Patient Instructions Indication:Obesity Start:01-Sep-2013 Instruction Type:Provider Instructions for Treatment Patient Instructions Indication:Flank pain Start:06-Jul-2013 Instruction Type:Provider Instructions for Treatment Patient Instructions Indication:Hematuria Start:01-Jun-2013 Instruction Type:Provider Instructions for Treatment Patient Instructions Indication:Dysthymic Start:26-May-2012 Instruction Type:Provider Instructions for Treatment [facility]; [facility] Work Phone: Instructions* Name Dates Details Patient Instructions Indication:BMI 39.0-39.9,adult Start:30-May-2021 Instruction Type:Provider Instructions for Treatment How to Access Health Informa tion Online using Patient Portal and [employer] Apps Indication:BMI 39.0-39.9,adult Start:30-May-2021 Instruction Type:Patient Education Patient Instructions Indication:Encounter for screening for malignant neoplasm of colon (Renamed from Special screening for malignant neoplasms, colon) Start:25-Apr-2021 Instruction Type:Provider Instructions for Treatment How to Access Health Informa tion Online using Patient Portal and [employer] Apps Indication:Non-smoker Start:25-Apr-2021 Instruction Type:Patient Education Patient Instructions Indication:Non-smoker Start:17-Jan-2021 Instruction Type:Provider Instructions for Treatment How to Access Health Informa tion Online using Patient Portal and [employer] Apps Indication:Non-smoker Start:17-Jan-2021 Instruction Type:Patient Education Patient Instructions Indication:CKD stage G3b/A1, GFR 30-44 and albumin creatinine ratio <30 mg/g Start:16-Dec-2020 Instruction Type:Provider Instructions for Treatment How to Access Health Informa tion Online using Patient Portal and [employer] Apps Indication:JESUS (obstructive sleep apnea) Start:16-Dec-2020 Instruction Type:Patient Education Patient Instructions Indication:Non-smoker Start:09-Dec-2020 Instruction Type:Provider Instructions for Treatment How to Access Health Informa tion Online using Patient Portal and [employer] Apps Indication:HTN (hypertension), benign Start:09-Dec-2020 Instruction Type:Patient Education How to access health informa tion online Indication:BMI 39.0-39.9,adult Start:01-Oct-2019 Instruction Type:Patient Education How to access health informa tion online - Detail Indication:BMI 39.0-39.9,adult Start:01-Oct-2019 Instruction Type:Patient Education Patient Instructions Indication:BMI 39.0-39.9,adult Start:01-Oct-2019 Instruction Type:Provider Instructions for Treatment How to access health informa tion online Indication:BMI 40.0-44.9, adult Start:31-Aug-2019 Instruction Type:Patient Education How to access health informa tion online - Detail Indication:BMI 40.0-44.9, adult Start:31-Aug-2019 Instruction Type:Patient Education Patient Instructions Indication:BMI 40.0-44.9, adult Start:31-Aug-2019 Instruction Type:Provider Instructions for Treatment How to access health informa tion online - Detail Indication:BMI 40.0-44.9, adult Start:27-Jul-2019 Instruction Type:Patient Education Patient Instructions Indication:BMI 40.0-44.9, adult Start:27-Jul-2019 Instruction Type:Provider Instructions for Treatment How to access health informa tion online Indication:Non-smoker Start:01-Dec-2018 Instruction Type:Patient Education How to access health informa tion online - Detail Indication:Non-smoker Start:01-Dec-2018 Instruction Type:Patient Education Patient Instructions Indication:Non-smoker Start:01-Dec-2018 Instruction Type:Provider Instructions for Treatment How to access health informa tion online Indication:BMI 39.0-39.9,adult Start:05-Nov-2018 Instruction Type:Patient Education How to access health informa tion online - Detail Indication:BMI 39.0-39.9,adult Start:05-Nov-2018 Instruction Type:Patient Education Patient Instructions Indication:BMI 39.0-39.9,adult Start:05-Nov-2018 Instruction Type:Provider Instructions for Treatment How to access health informa tion online Indication:Non-smoker Start:29-Oct-2018 Instruction Type:Patient Education How to access health informa tion online - Detail Indication:Non-smoker Start:29-Oct-2018 Instruction Type:Patient Education Patient Instructions Indication:Non-smoker Start:29-Oct-2018 Instruction Type:Provider Instructions for Treatment How to access health informa tion online - Detail Indication:Non-smoker Start:08-Oct-2018 Instruction Type:Patient Education How to access health informa tion online Indication:Non-smoker Start:08-Oct-2018 Instruction Type:Patient Education How to access health informa tion online Indication:Fever and chills Start:06-Aug-2017 Instruction Type:Patient Education How to access health informa tion online - Detail Indication:Fever and chills Start:06-Aug-2017 Instruction Type:Patient Education Patient Instructions Indication:Fever and chills Start:06-Aug-2017 Instruction Type:Provider Instructions for Treatment How to access health informa tion online Indication:Non-smoker Start:20-Sep-2016 Instruction Type:Patient Education How to access health informa tion online - Detail Indication:Non-smoker Start:20-Sep-2016 Instruction Type:Patient Education Patient Instructions Indication:Non-smoker Start:20-Sep-2016 Instruction Type:Provider Instructions for Treatment How to access health informa tion online Indication:Sinusitis Start:14-Apr-2015 Instruction Type:Patient Education How to access health informa tion online - Detail Indication:Sinusitis Start:14-Apr-2015 Instruction Type:Patient Education Patient Instructions Indication:Sinusitis Start:14-Apr-2015 Instruction Type:Provider Instructions for Treatment How to access health informa tion online Indication:Wheezing Start:19-Jan-2015 Instruction Type:Patient Education How to access health informa tion online - Detail Indication:Wheezing Start:19-Jan-2015 Instruction Type:Patient Education Patient Instructions Indication:Wheezing Start:19-Jan-2015 Instruction Type:Provider Instructions for Treatment Patient Instructions Indication:Red eye Start:05-Oct-2013 Instruction Type:Provider Instructions for Treatment Patient Instructions Indication:Knee Pain (Renamed from Arthralgia of knee) Start:29-Sep-2013 Instruction Type:Provider Instructions for Treatment Patient Instructions Indication:Obesity Start:01-Sep-2013 Instruction Type:Provider Instructions for Treatment Patient Instructions Indication:Flank pain Start:06-Jul-2013 Instruction Type:Provider Instructions for Treatment Patient Instructions Indication:Hematuria Start:01-Jun-2013 Instruction Type:Provider Instructions for Treatment Patient Instructions Indication:Dysthymic Start:26-May-2012 Instruction Type:Provider Instructions for Treatment [facility]; [facility] Work Phone: Instructions* Name Dates Details Patient Instructions Indication:BMI 39.0-39.9,adult Start:24-Oct-2021 Instruction Type:Provider Instructions for Treatment How to Access Health Informa tion Online using Patient Portal and [employer] Apps Indication:BMI 39.0-39.9,adult Start:24-Oct-2021 Instruction Type:Patient Education Patient Instructions Indication:BMI 39.0-39.9,adult Start:30-May-2021 Instruction Type:Provider Instructions for Treatment How to Access Health Informa tion Online using Patient Portal and [employer] Apps Indication:BMI 39.0-39.9,adult Start:30-May-2021 Instruction Type:Patient Education Patient Instructions Indication:Encounter for screening for malignant neoplasm of colon (Renamed from Special screening for malignant neoplasms, colon) Start:25-Apr-2021 Instruction Type:Provider Instructions for Treatment How to Access Health Informa tion Online using Patient Portal and [employer] Apps Indication:Non-smoker Start:25-Apr-2021 Instruction Type:Patient Education Patient Instructions Indication:Non-smoker Start:17-Jan-2021 Instruction Type:Provider Instructions for Treatment How to Access Health Informa tion Online using Patient Portal and [employer] Apps Indication:Non-smoker Start:17-Jan-2021 Instruction Type:Patient Education Patient Instructions Indication:CKD stage G3b/A1, GFR 30-44 and albumin creatinine ratio <30 mg/g Start:16-Dec-2020 Instruction Type:Provider Instructions for Treatment How to Access Health Informa tion Online using Patient Portal and [employer] Apps Indication:JESUS (obstructive sleep apnea) Start:16-Dec-2020 Instruction Type:Patient Education Patient Instructions Indication:Non-smoker Start:09-Dec-2020 Instruction Type:Provider Instructions for Treatment How to Access Health Informa tion Online using Patient Portal and [employer] Apps Indication:HTN (hypertension), benign Start:09-Dec-2020 Instruction Type:Patient Education How to access health informa tion online Indication:BMI 39.0-39.9,adult Start:01-Oct-2019 Instruction Type:Patient Education How to access health informa tion online - Detail Indication:BMI 39.0-39.9,adult Start:01-Oct-2019 Instruction Type:Patient Education Patient Instructions Indication:BMI 39.0-39.9,adult Start:01-Oct-2019 Instruction Type:Provider Instructions for Treatment How to access health informa tion online Indication:BMI 40.0-44.9, adult Start:31-Aug-2019 Instruction Type:Patient Education How to access health informa tion online - Detail Indication:BMI 40.0-44.9, adult Start:31-Aug-2019 Instruction Type:Patient Education Patient Instructions Indication:BMI 40.0-44.9, adult Start:31-Aug-2019 Instruction Type:Provider Instructions for Treatment How to access health informa tion online - Detail Indication:BMI 40.0-44.9, adult Start:27-Jul-2019 Instruction Type:Patient Education Patient Instructions Indication:BMI 40.0-44.9, adult Start:27-Jul-2019 Instruction Type:Provider Instructions for Treatment How to access health informa tion online Indication:Non-smoker Start:01-Dec-2018 Instruction Type:Patient Education How to access health informa tion online - Detail Indication:Non-smoker Start:01-Dec-2018 Instruction Type:Patient Education Patient Instructions Indication:Non-smoker Start:01-Dec-2018 Instruction Type:Provider Instructions for Treatment How to access health informa tion online Indication:BMI 39.0-39.9,adult Start:05-Nov-2018 Instruction Type:Patient Education How to access health informa tion online - Detail Indication:BMI 39.0-39.9,adult Start:05-Nov-2018 Instruction Type:Patient Education Patient Instructions Indication:BMI 39.0-39.9,adult Start:05-Nov-2018 Instruction Type:Provider Instructions for Treatment How to access health informa tion online Indication:Non-smoker Start:29-Oct-2018 Instruction Type:Patient Education How to access health informa tion online - Detail Indication:Non-smoker Start:29-Oct-2018 Instruction Type:Patient Education Patient Instructions Indication:Non-smoker Start:29-Oct-2018 Instruction Type:Provider Instructions for Treatment How to access health informa tion online - Detail Indication:Non-smoker Start:08-Oct-2018 Instruction Type:Patient Education How to access health informa tion online Indication:Non-smoker Start:08-Oct-2018 Instruction Type:Patient Education How to access health informa tion online Indication:Fever and chills Start:06-Aug-2017 Instruction Type:Patient Education How to access health informa tion online - Detail Indication:Fever and chills Start:06-Aug-2017 Instruction Type:Patient Education Patient Instructions Indication:Fever and chills Start:06-Aug-2017 Instruction Type:Provider Instructions for Treatment How to access health informa tion online Indication:Non-smoker Start:20-Sep-2016 Instruction Type:Patient Education How to access health informa tion online - Detail Indication:Non-smoker Start:20-Sep-2016 Instruction Type:Patient Education Patient Instructions Indication:Non-smoker Start:20-Sep-2016 Instruction Type:Provider Instructions for Treatment How to access health informa tion online Indication:Sinusitis Start:14-Apr-2015 Instruction Type:Patient Education How to access health informa tion online - Detail Indication:Sinusitis Start:14-Apr-2015 Instruction Type:Patient Education Patient Instructions Indication:Sinusitis Start:14-Apr-2015 Instruction Type:Provider Instructions for Treatment How to access health informa tion online Indication:Wheezing Start:19-Jan-2015 Instruction Type:Patient Education How to access health informa tion online - Detail Indication:Wheezing Start:19-Jan-2015 Instruction Type:Patient Education Patient Instructions Indication:Wheezing Start:19-Jan-2015 Instruction Type:Provider Instructions for Treatment Patient Instructions Indication:Red eye Start:05-Oct-2013 Instruction Type:Provider Instructions for Treatment Patient Instructions Indication:Knee Pain (Renamed from Arthralgia of knee) Start:29-Sep-2013 Instruction Type:Provider Instructions for Treatment Patient Instructions Indication:Obesity Start:01-Sep-2013 Instruction Type:Provider Instructions for Treatment Patient Instructions Indication:Flank pain Start:06-Jul-2013 Instruction Type:Provider Instructions for Treatment Patient Instructions Indication:Hematuria Start:01-Jun-2013 Instruction Type:Provider Instructions for Treatment Patient Instructions Indication:Dysthymic Start:26-May-2012 Instruction Type:Provider Instructions for Treatment [facility]; [facility] Work Phone: Instructions* Name Dates Details Patient Instructions Indication:Impaired fasting glucose Start:24-Jan-2022 Instruction Type:Provider Instructions for Treatment How to Access Health Informa tion Online using Patient Portal and [employer]rd [employer] Apps Indication:Impaired fasting glucose Start:24-Jan-2022 Instruction Type:Patient Education Patient Instructions Indication:BMI 39.0-39.9,adult Start:24-Oct-2021 Instruction Type:Provider Instructions for Treatment How to Access Health Informa tion Online using Patient Portal and [employer]rd [employer] Apps Indication:BMI 39.0-39.9,adult Start:24-Oct-2021 Instruction Type:Patient Education Patient Instructions Indication:BMI 39.0-39.9,adult Start:30-May-2021 Instruction Type:Provider Instructions for Treatment How to Access Health Informa tion Online using Patient Portal and [employer]rd [employer] Apps Indication:BMI 39.0-39.9,adult Start:30-May-2021 Instruction Type:Patient Education Patient Instructions Indication:Encounter for screening for malignant neoplasm of colon (Renamed from Special screening for malignant neoplasms, colon) Start:25-Apr-2021 Instruction Type:Provider Instructions for Treatment How to Access Health Informa tion Online using Patient Portal and [employer]rd [employer] Apps Indication:Non-smoker Start:25-Apr-2021 Instruction Type:Patient Education Patient Instructions Indication:Non-smoker Start:17-Jan-2021 Instruction Type:Provider Instructions for Treatment How to Access Health Informa tion Online using Patient Portal and [employer]rd [employer] Apps Indication:Non-smoker Start:17-Jan-2021 Instruction Type:Patient Education Patient Instructions Indication:CKD stage G3b/A1, GFR 30-44 and albumin creatinine ratio <30 mg/g Start:16-Dec-2020 Instruction Type:Provider Instructions for Treatment How to Access Health Informa tion Online using Patient Portal and [employer]rd [employer] Apps Indication:JESUS (obstructive sleep apnea) Start:16-Dec-2020 Instruction Type:Patient Education Patient Instructions Indication:Non-smoker Start:09-Dec-2020 Instruction Type:Provider Instructions for Treatment How to Access Health Informa tion Online using Patient Portal and [employer]rd [employer] Apps Indication:HTN (hypertension), benign Start:09-Dec-2020 Instruction Type:Patient Education How to access health informa tion online Indication:BMI 39.0-39.9,adult Start:01-Oct-2019 Instruction Type:Patient Education How to access health informa tion online - Detail Indication:BMI 39.0-39.9,adult Start:01-Oct-2019 Instruction Type:Patient Education Patient Instructions Indication:BMI 39.0-39.9,adult Start:01-Oct-2019 Instruction Type:Provider Instructions for Treatment How to access health informa tion online Indication:BMI 40.0-44.9, adult Start:31-Aug-2019 Instruction Type:Patient Education How to access health informa tion online - Detail Indication:BMI 40.0-44.9, adult Start:31-Aug-2019 Instruction Type:Patient Education Patient Instructions Indication:BMI 40.0-44.9, adult Start:31-Aug-2019 Instruction Type:Provider Instructions for Treatment How to access health informa tion online - Detail Indication:BMI 40.0-44.9, adult Start:27-Jul-2019 Instruction Type:Patient Education Patient Instructions Indication:BMI 40.0-44.9, adult Start:27-Jul-2019 Instruction Type:Provider Instructions for Treatment How to access health informa tion online Indication:Non-smoker Start:01-Dec-2018 Instruction Type:Patient Education How to access health informa tion online - Detail Indication:Non-smoker Start:01-Dec-2018 Instruction Type:Patient Education Patient Instructions Indication:Non-smoker Start:01-Dec-2018 Instruction Type:Provider Instructions for Treatment How to access health informa tion online Indication:BMI 39.0-39.9,adult Start:05-Nov-2018 Instruction Type:Patient Education How to access health informa tion online - Detail Indication:BMI 39.0-39.9,adult Start:05-Nov-2018 Instruction Type:Patient Education Patient Instructions Indication:BMI 39.0-39.9,adult Start:05-Nov-2018 Instruction Type:Provider Instructions for Treatment How to access health informa tion online Indication:Non-smoker Start:29-Oct-2018 Instruction Type:Patient Education How to access health informa tion online - Detail Indication:Non-smoker Start:29-Oct-2018 Instruction Type:Patient Education Patient Instructions Indication:Non-smoker Start:29-Oct-2018 Instruction Type:Provider Instructions for Treatment How to access health informa tion online - Detail Indication:Non-smoker Start:08-Oct-2018 Instruction Type:Patient Education How to access health informa tion online Indication:Non-smoker Start:08-Oct-2018 Instruction Type:Patient Education How to access health informa tion online Indication:Fever and chills Start:06-Aug-2017 Instruction Type:Patient Education How to access health informa tion online - Detail Indication:Fever and chills Start:06-Aug-2017 Instruction Type:Patient Education Patient Instructions Indication:Fever and chills Start:06-Aug-2017 Instruction Type:Provider Instructions for Treatment How to access health informa tion online Indication:Non-smoker Start:20-Sep-2016 Instruction Type:Patient Education How to access health informa tion online - Detail Indication:Non-smoker Start:20-Sep-2016 Instruction Type:Patient Education Patient Instructions Indication:Non-smoker Start:20-Sep-2016 Instruction Type:Provider Instructions for Treatment How to access health informa tion online Indication:Sinusitis Start:14-Apr-2015 Instruction Type:Patient Education How to access health informa tion online - Detail Indication:Sinusitis Start:14-Apr-2015 Instruction Type:Patient Education Patient Instructions Indication:Sinusitis Start:14-Apr-2015 Instruction Type:Provider Instructions for Treatment How to access health informa tion online Indication:Wheezing Start:19-Jan-2015 Instruction Type:Patient Education How to access health informa tion online - Detail Indication:Wheezing Start:19-Jan-2015 Instruction Type:Patient Education Patient Instructions Indication:Wheezing Start:19-Jan-2015 Instruction Type:Provider Instructions for Treatment Patient Instructions Indication:Red eye Start:05-Oct-2013 Instruction Type:Provider Instructions for Treatment Patient Instructions Indication:Knee Pain (Renamed from Arthralgia of knee) Start:29-Sep-2013 Instruction Type:Provider Instructions for Treatment Patient Instructions Indication:Obesity Start:01-Sep-2013 Instruction Type:Provider Instructions for Treatment Patient Instructions Indication:Flank pain Start:06-Jul-2013 Instruction Type:Provider Instructions for Treatment Patient Instructions Indication:Hematuria Start:01-Jun-2013 Instruction Type:Provider Instructions for Treatment Patient Instructions Indication:Dysthymic Start:26-May-2012 Instruction Type:Provider Instructions for Treatment [facility]; [facility] Work Phone: Instructions* Name Dates Details Patient Instructions Indication:Impaired fasting glucose Start:24-Jan-2022 Instruction Type:Provider Instructions for Treatment How to Access Health Informa tion Online using Patient Portal and [employer]rd [employer] Apps Indication:Impaired fasting glucose Start:24-Jan-2022 Instruction Type:Patient Education Patient Instructions Indication:BMI 39.0-39.9,adult Start:24-Oct-2021 Instruction Type:Provider Instructions for Treatment How to Access Health Informa tion Online using Patient Portal and [employer]rd [employer] Apps Indication:BMI 39.0-39.9,adult Start:24-Oct-2021 Instruction Type:Patient Education Patient Instructions Indication:BMI 39.0-39.9,adult Start:30-May-2021 Instruction Type:Provider Instructions for Treatment How to Access Health Informa tion Online using Patient Portal and [employer] Apps Indication:BMI 39.0-39.9,adult Start:30-May-2021 Instruction Type:Patient Education Patient Instructions Indication:Encounter for screening for malignant neoplasm of colon (Renamed from Special screening for malignant neoplasms, colon) Start:25-Apr-2021 Instruction Type:Provider Instructions for Treatment How to Access Health Informa tion Online using Patient Portal and [employer] Apps Indication:Non-smoker Start:25-Apr-2021 Instruction Type:Patient Education Patient Instructions Indication:Non-smoker Start:17-Jan-2021 Instruction Type:Provider Instructions for Treatment How to Access Health Informa tion Online using Patient Portal and [employer] Apps Indication:Non-smoker Start:17-Jan-2021 Instruction Type:Patient Education Patient Instructions Indication:CKD stage G3b/A1, GFR 30-44 and albumin creatinine ratio <30 mg/g Start:16-Dec-2020 Instruction Type:Provider Instructions for Treatment How to Access Health Informa tion Online using Patient Portal and [employer]rd [employer] Apps Indication:JESUS (obstructive sleep apnea) Start:16-Dec-2020 Instruction Type:Patient Education Patient Instructions Indication:Non-smoker Start:09-Dec-2020 Instruction Type:Provider Instructions for Treatment How to Access Health Informa tion Online using Patient Portal and [employer]rd [employer] Apps Indication:HTN (hypertension), benign Start:09-Dec-2020 Instruction Type:Patient Education How to access health informa tion online Indication:BMI 39.0-39.9,adult Start:01-Oct-2019 Instruction Type:Patient Education How to access health informa tion online - Detail Indication:BMI 39.0-39.9,adult Start:01-Oct-2019 Instruction Type:Patient Education Patient Instructions Indication:BMI 39.0-39.9,adult Start:01-Oct-2019 Instruction Type:Provider Instructions for Treatment How to access health informa tion online Indication:BMI 40.0-44.9, adult Start:31-Aug-2019 Instruction Type:Patient Education How to access health informa tion online - Detail Indication:BMI 40.0-44.9, adult Start:31-Aug-2019 Instruction Type:Patient Education Patient Instructions Indication:BMI 40.0-44.9, adult Start:31-Aug-2019 Instruction Type:Provider Instructions for Treatment How to access health informa tion online - Detail Indication:BMI 40.0-44.9, adult Start:27-Jul-2019 Instruction Type:Patient Education Patient Instructions Indication:BMI 40.0-44.9, adult Start:27-Jul-2019 Instruction Type:Provider Instructions for Treatment How to access health informa tion online Indication:Non-smoker Start:01-Dec-2018 Instruction Type:Patient Education How to access health informa tion online - Detail Indication:Non-smoker Start:01-Dec-2018 Instruction Type:Patient Education Patient Instructions Indication:Non-smoker Start:01-Dec-2018 Instruction Type:Provider Instructions for Treatment How to access health informa tion online Indication:BMI 39.0-39.9,adult Start:05-Nov-2018 Instruction Type:Patient Education How to access health informa tion online - Detail Indication:BMI 39.0-39.9,adult Start:05-Nov-2018 Instruction Type:Patient Education Patient Instructions Indication:BMI 39.0-39.9,adult Start:05-Nov-2018 Instruction Type:Provider Instructions for Treatment How to access health informa tion online Indication:Non-smoker Start:29-Oct-2018 Instruction Type:Patient Education How to access health informa tion online - Detail Indication:Non-smoker Start:29-Oct-2018 Instruction Type:Patient Education Patient Instructions Indication:Non-smoker Start:29-Oct-2018 Instruction Type:Provider Instructions for Treatment How to access health informa tion online - Detail Indication:Non-smoker Start:08-Oct-2018 Instruction Type:Patient Education How to access health informa tion online Indication:Non-smoker Start:08-Oct-2018 Instruction Type:Patient Education How to access health informa tion online Indication:Fever and chills Start:06-Aug-2017 Instruction Type:Patient Education How to access health informa tion online - Detail Indication:Fever and chills Start:06-Aug-2017 Instruction Type:Patient Education Patient Instructions Indication:Fever and chills Start:06-Aug-2017 Instruction Type:Provider Instructions for Treatment How to access health informa tion online Indication:Non-smoker Start:20-Sep-2016 Instruction Type:Patient Education How to access health informa tion online - Detail Indication:Non-smoker Start:20-Sep-2016 Instruction Type:Patient Education Patient Instructions Indication:Non-smoker Start:20-Sep-2016 Instruction Type:Provider Instructions for Treatment How to access health informa tion online Indication:Sinusitis Start:14-Apr-2015 Instruction Type:Patient Education How to access health informa tion online - Detail Indication:Sinusitis Start:14-Apr-2015 Instruction Type:Patient Education Patient Instructions Indication:Sinusitis Start:14-Apr-2015 Instruction Type:Provider Instructions for Treatment How to access health informa tion online Indication:Wheezing Start:19-Jan-2015 Instruction Type:Patient Education How to access health informa tion online - Detail Indication:Wheezing Start:19-Jan-2015 Instruction Type:Patient Education Patient Instructions Indication:Wheezing Start:19-Jan-2015 Instruction Type:Provider Instructions for Treatment Patient Instructions Indication:Red eye Start:05-Oct-2013 Instruction Type:Provider Instructions for Treatment Patient Instructions Indication:Knee Pain (Renamed from Arthralgia of knee) Start:29-Sep-2013 Instruction Type:Provider Instructions for Treatment Patient Instructions Indication:Obesity Start:01-Sep-2013 Instruction Type:Provider Instructions for Treatment Patient Instructions Indication:Flank pain Start:06-Jul-2013 Instruction Type:Provider Instructions for Treatment Patient Instructions Indication:Hematuria Start:01-Jun-2013 Instruction Type:Provider Instructions for Treatment Patient Instructions Indication:Dysthymic Start:26-May-2012 Instruction Type:Provider Instructions for Treatment [facility]; [facility] Work Phone: Instructions* Name Dates Details Patient Instructions Indication:Non-smoker Start:05-Feb-2022 Instruction Type:Provider Instructions for Treatment How to Access Health Informa tion Online using Patient Portal and [employer] Apps Indication:Non-smoker Start:05-Feb-2022 Instruction Type:Patient Education Patient Instructions Indication:Impaired fasting glucose Start:24-Jan-2022 Instruction Type:Provider Instructions for Treatment How to Access Health Informa tion Online using Patient Portal and [employer] Apps Indication:Impaired fasting glucose Start:24-Jan-2022 Instruction Type:Patient Education Patient Instructions Indication:BMI 39.0-39.9,adult Start:24-Oct-2021 Instruction Type:Provider Instructions for Treatment How to Access Health Informa tion Online using Patient Portal and [employer] Apps Indication:BMI 39.0-39.9,adult Start:24-Oct-2021 Instruction Type:Patient Education Patient Instructions Indication:BMI 39.0-39.9,adult Start:30-May-2021 Instruction Type:Provider Instructions for Treatment How to Access Health Informa tion Online using Patient Portal and [employer] Apps Indication:BMI 39.0-39.9,adult Start:30-May-2021 Instruction Type:Patient Education Patient Instructions Indication:Encounter for screening for malignant neoplasm of colon (Renamed from Special screening for malignant neoplasms, colon) Start:25-Apr-2021 Instruction Type:Provider Instructions for Treatment How to Access Health Informa tion Online using Patient Portal and [employer] Apps Indication:Non-smoker Start:25-Apr-2021 Instruction Type:Patient Education Patient Instructions Indication:Non-smoker Start:17-Jan-2021 Instruction Type:Provider Instructions for Treatment How to Access Health Informa tion Online using Patient Portal and [employer] Apps Indication:Non-smoker Start:17-Jan-2021 Instruction Type:Patient Education Patient Instructions Indication:CKD stage G3b/A1, GFR 30-44 and albumin creatinine ratio <30 mg/g Start:16-Dec-2020 Instruction Type:Provider Instructions for Treatment How to Access Health Informa tion Online using Patient Portal and [employer] Apps Indication:JESUS (obstructive sleep apnea) Start:16-Dec-2020 Instruction Type:Patient Education Patient Instructions Indication:Non-smoker Start:09-Dec-2020 Instruction Type:Provider Instructions for Treatment How to Access Health Informa tion Online using Patient Portal and [employer] Apps Indication:HTN (hypertension), benign Start:09-Dec-2020 Instruction Type:Patient Education How to access health informa tion online Indication:BMI 39.0-39.9,adult Start:01-Oct-2019 Instruction Type:Patient Education How to access health informa tion online - Detail Indication:BMI 39.0-39.9,adult Start:01-Oct-2019 Instruction Type:Patient Education Patient Instructions Indication:BMI 39.0-39.9,adult Start:01-Oct-2019 Instruction Type:Provider Instructions for Treatment How to access health informa tion online Indication:BMI 40.0-44.9, adult Start:31-Aug-2019 Instruction Type:Patient Education How to access health informa tion online - Detail Indication:BMI 40.0-44.9, adult Start:31-Aug-2019 Instruction Type:Patient Education Patient Instructions Indication:BMI 40.0-44.9, adult Start:31-Aug-2019 Instruction Type:Provider Instructions for Treatment How to access health informa tion online - Detail Indication:BMI 40.0-44.9, adult Start:27-Jul-2019 Instruction Type:Patient Education Patient Instructions Indication:BMI 40.0-44.9, adult Start:27-Jul-2019 Instruction Type:Provider Instructions for Treatment How to access health informa tion online Indication:Non-smoker Start:01-Dec-2018 Instruction Type:Patient Education How to access health informa tion online - Detail Indication:Non-smoker Start:01-Dec-2018 Instruction Type:Patient Education Patient Instructions Indication:Non-smoker Start:01-Dec-2018 Instruction Type:Provider Instructions for Treatment How to access health informa tion online Indication:BMI 39.0-39.9,adult Start:05-Nov-2018 Instruction Type:Patient Education How to access health informa tion online - Detail Indication:BMI 39.0-39.9,adult Start:05-Nov-2018 Instruction Type:Patient Education Patient Instructions Indication:BMI 39.0-39.9,adult Start:05-Nov-2018 Instruction Type:Provider Instructions for Treatment How to access health informa tion online Indication:Non-smoker Start:29-Oct-2018 Instruction Type:Patient Education How to access health informa tion online - Detail Indication:Non-smoker Start:29-Oct-2018 Instruction Type:Patient Education Patient Instructions Indication:Non-smoker Start:29-Oct-2018 Instruction Type:Provider Instructions for Treatment How to access health informa tion online - Detail Indication:Non-smoker Start:08-Oct-2018 Instruction Type:Patient Education How to access health informa tion online Indication:Non-smoker Start:08-Oct-2018 Instruction Type:Patient Education How to access health informa tion online Indication:Fever and chills Start:06-Aug-2017 Instruction Type:Patient Education How to access health informa tion online - Detail Indication:Fever and chills Start:06-Aug-2017 Instruction Type:Patient Education Patient Instructions Indication:Fever and chills Start:06-Aug-2017 Instruction Type:Provider Instructions for Treatment How to access health informa tion online Indication:Non-smoker Start:20-Sep-2016 Instruction Type:Patient Education How to access health informa tion online - Detail Indication:Non-smoker Start:20-Sep-2016 Instruction Type:Patient Education Patient Instructions Indication:Non-smoker Start:20-Sep-2016 Instruction Type:Provider Instructions for Treatment How to access health informa tion online Indication:Sinusitis Start:14-Apr-2015 Instruction Type:Patient Education How to access health informa tion online - Detail Indication:Sinusitis Start:14-Apr-2015 Instruction Type:Patient Education Patient Instructions Indication:Sinusitis Start:14-Apr-2015 Instruction Type:Provider Instructions for Treatment How to access health informa tion online Indication:Wheezing Start:19-Jan-2015 Instruction Type:Patient Education How to access health informa tion online - Detail Indication:Wheezing Start:19-Jan-2015 Instruction Type:Patient Education Patient Instructions Indication:Wheezing Start:19-Jan-2015 Instruction Type:Provider Instructions for Treatment Patient Instructions Indication:Red eye Start:05-Oct-2013 Instruction Type:Provider Instructions for Treatment Patient Instructions Indication:Knee Pain (Renamed from Arthralgia of knee) Start:29-Sep-2013 Instruction Type:Provider Instructions for Treatment Patient Instructions Indication:Obesity Start:01-Sep-2013 Instruction Type:Provider Instructions for Treatment Patient Instructions Indication:Flank pain Start:06-Jul-2013 Instruction Type:Provider Instructions for Treatment Patient Instructions Indication:Hematuria Start:01-Jun-2013 Instruction Type:Provider Instructions for Treatment Patient Instructions Indication:Dysthymic Start:26-May-2012 Instruction Type:Provider Instructions for Treatment [facility]; [facility] Work Phone: Instructions* Name Dates Details Patient Instructions Indication:Non-smoker Start:22-Feb-2022 Instruction Type:Provider Instructions for Treatment How to Access Health Informa tion Online using Patient Portal and [employer] Apps Indication:Non-smoker Start:22-Feb-2022 Instruction Type:Patient Education Patient Instructions Indication:Non-smoker Start:05-Feb-2022 Instruction Type:Provider Instructions for Treatment How to Access Health Informa tion Online using Patient Portal and [employer] Apps Indication:Non-smoker Start:05-Feb-2022 Instruction Type:Patient Education Patient Instructions Indication:Impaired fasting glucose Start:24-Jan-2022 Instruction Type:Provider Instructions for Treatment How to Access Health Informa tion Online using Patient Portal and [employer] Apps Indication:Impaired fasting glucose Start:24-Jan-2022 Instruction Type:Patient Education Patient Instructions Indication:BMI 39.0-39.9,adult Start:24-Oct-2021 Instruction Type:Provider Instructions for Treatment How to Access Health Informa tion Online using Patient Portal and [employer] Apps Indication:BMI 39.0-39.9,adult Start:24-Oct-2021 Instruction Type:Patient Education Patient Instructions Indication:BMI 39.0-39.9,adult Start:30-May-2021 Instruction Type:Provider Instructions for Treatment How to Access Health Informa tion Online using Patient Portal and [employer] Apps Indication:BMI 39.0-39.9,adult Start:30-May-2021 Instruction Type:Patient Education Patient Instructions Indication:Encounter for screening for malignant neoplasm of colon (Renamed from Special screening for malignant neoplasms, colon) Start:25-Apr-2021 Instruction Type:Provider Instructions for Treatment How to Access Health Informa tion Online using Patient Portal and [employer] Apps Indication:Non-smoker Start:25-Apr-2021 Instruction Type:Patient Education Patient Instructions Indication:Non-smoker Start:17-Jan-2021 Instruction Type:Provider Instructions for Treatment How to Access Health Informa tion Online using Patient Portal and [employer] Apps Indication:Non-smoker Start:17-Jan-2021 Instruction Type:Patient Education Patient Instructions Indication:CKD stage G3b/A1, GFR 30-44 and albumin creatinine ratio <30 mg/g Start:16-Dec-2020 Instruction Type:Provider Instructions for Treatment How to Access Health Informa tion Online using Patient Portal and [employer] Apps Indication:JESUS (obstructive sleep apnea) Start:16-Dec-2020 Instruction Type:Patient Education Patient Instructions Indication:Non-smoker Start:09-Dec-2020 Instruction Type:Provider Instructions for Treatment How to Access Health Informa tion Online using Patient Portal and [employer] Apps Indication:HTN (hypertension), benign Start:09-Dec-2020 Instruction Type:Patient Education How to access health informa tion online Indication:BMI 39.0-39.9,adult Start:01-Oct-2019 Instruction Type:Patient Education How to access health informa tion online - Detail Indication:BMI 39.0-39.9,adult Start:01-Oct-2019 Instruction Type:Patient Education Patient Instructions Indication:BMI 39.0-39.9,adult Start:01-Oct-2019 Instruction Type:Provider Instructions for Treatment How to access health informa tion online Indication:BMI 40.0-44.9, adult Start:31-Aug-2019 Instruction Type:Patient Education How to access health informa tion online - Detail Indication:BMI 40.0-44.9, adult Start:31-Aug-2019 Instruction Type:Patient Education Patient Instructions Indication:BMI 40.0-44.9, adult Start:31-Aug-2019 Instruction Type:Provider Instructions for Treatment How to access health informa tion online - Detail Indication:BMI 40.0-44.9, adult Start:27-Jul-2019 Instruction Type:Patient Education Patient Instructions Indication:BMI 40.0-44.9, adult Start:27-Jul-2019 Instruction Type:Provider Instructions for Treatment How to access health informa tion online Indication:Non-smoker Start:01-Dec-2018 Instruction Type:Patient Education How to access health informa tion online - Detail Indication:Non-smoker Start:01-Dec-2018 Instruction Type:Patient Education Patient Instructions Indication:Non-smoker Start:01-Dec-2018 Instruction Type:Provider Instructions for Treatment How to access health informa tion online Indication:BMI 39.0-39.9,adult Start:05-Nov-2018 Instruction Type:Patient Education How to access health informa tion online - Detail Indication:BMI 39.0-39.9,adult Start:05-Nov-2018 Instruction Type:Patient Education Patient Instructions Indication:BMI 39.0-39.9,adult Start:05-Nov-2018 Instruction Type:Provider Instructions for Treatment How to access health informa tion online Indication:Non-smoker Start:29-Oct-2018 Instruction Type:Patient Education How to access health informa tion online - Detail Indication:Non-smoker Start:29-Oct-2018 Instruction Type:Patient Education Patient Instructions Indication:Non-smoker Start:29-Oct-2018 Instruction Type:Provider Instructions for Treatment How to access health informa tion online - Detail Indication:Non-smoker Start:08-Oct-2018 Instruction Type:Patient Education How to access health informa tion online Indication:Non-smoker Start:08-Oct-2018 Instruction Type:Patient Education How to access health informa tion online Indication:Fever and chills Start:06-Aug-2017 Instruction Type:Patient Education How to access health informa tion online - Detail Indication:Fever and chills Start:06-Aug-2017 Instruction Type:Patient Education Patient Instructions Indication:Fever and chills Start:06-Aug-2017 Instruction Type:Provider Instructions for Treatment How to access health informa tion online Indication:Non-smoker Start:20-Sep-2016 Instruction Type:Patient Education How to access health informa tion online - Detail Indication:Non-smoker Start:20-Sep-2016 Instruction Type:Patient Education Patient Instructions Indication:Non-smoker Start:20-Sep-2016 Instruction Type:Provider Instructions for Treatment How to access health informa tion online Indication:Sinusitis Start:14-Apr-2015 Instruction Type:Patient Education How to access health informa tion online - Detail Indication:Sinusitis Start:14-Apr-2015 Instruction Type:Patient Education Patient Instructions Indication:Sinusitis Start:14-Apr-2015 Instruction Type:Provider Instructions for Treatment How to access health informa tion online Indication:Wheezing Start:19-Jan-2015 Instruction Type:Patient Education How to access health informa tion online - Detail Indication:Wheezing Start:19-Jan-2015 Instruction Type:Patient Education Patient Instructions Indication:Wheezing Start:19-Jan-2015 Instruction Type:Provider Instructions for Treatment Patient Instructions Indication:Red eye Start:05-Oct-2013 Instruction Type:Provider Instructions for Treatment Patient Instructions Indication:Knee Pain (Renamed from Arthralgia of knee) Start:29-Sep-2013 Instruction Type:Provider Instructions for Treatment Patient Instructions Indication:Obesity Start:01-Sep-2013 Instruction Type:Provider Instructions for Treatment Patient Instructions Indication:Flank pain Start:06-Jul-2013 Instruction Type:Provider Instructions for Treatment Patient Instructions Indication:Hematuria Start:01-Jun-2013 Instruction Type:Provider Instructions for Treatment Patient Instructions Indication:Dysthymic Start:26-May-2012 Instruction Type:Provider Instructions for Treatment [facility]; [facility] Work Phone: Instructions* Name Dates Details Patient Instructions Indication:Morbid obesity Start:08-Mar-2022 Instruction Type:Provider Instructions for Treatment How to Access Health Informa tion Online using Patient Portal and [employer] Apps Indication:Morbid obesity Start:08-Mar-2022 Instruction Type:Patient Education Patient Instructions Indication:Non-smoker Start:22-Feb-2022 Instruction Type:Provider Instructions for Treatment How to Access Health Informa tion Online using Patient Portal and [employer] Apps Indication:Non-smoker Start:22-Feb-2022 Instruction Type:Patient Education Patient Instructions Indication:Non-smoker Start:05-Feb-2022 Instruction Type:Provider Instructions for Treatment How to Access Health Informa tion Online using Patient Portal and [employer] Apps Indication:Non-smoker Start:05-Feb-2022 Instruction Type:Patient Education Patient Instructions Indication:Impaired fasting glucose Start:24-Jan-2022 Instruction Type:Provider Instructions for Treatment How to Access Health Informa tion Online using Patient Portal and [employer] Apps Indication:Impaired fasting glucose Start:24-Jan-2022 Instruction Type:Patient Education Patient Instructions Indication:BMI 39.0-39.9,adult Start:24-Oct-2021 Instruction Type:Provider Instructions for Treatment How to Access Health Informa tion Online using Patient Portal and [employer] Apps Indication:BMI 39.0-39.9,adult Start:24-Oct-2021 Instruction Type:Patient Education Patient Instructions Indication:BMI 39.0-39.9,adult Start:30-May-2021 Instruction Type:Provider Instructions for Treatment How to Access Health Informa tion Online using Patient Portal and [employer] Apps Indication:BMI 39.0-39.9,adult Start:30-May-2021 Instruction Type:Patient Education Patient Instructions Indication:Encounter for screening for malignant neoplasm of colon (Renamed from Special screening for malignant neoplasms, colon) Start:25-Apr-2021 Instruction Type:Provider Instructions for Treatment How to Access Health Informa tion Online using Patient Portal and [employer] Apps Indication:Non-smoker Start:25-Apr-2021 Instruction Type:Patient Education Patient Instructions Indication:Non-smoker Start:17-Jan-2021 Instruction Type:Provider Instructions for Treatment How to Access Health Informa tion Online using Patient Portal and [employer] Apps Indication:Non-smoker Start:17-Jan-2021 Instruction Type:Patient Education Patient Instructions Indication:CKD stage G3b/A1, GFR 30-44 and albumin creatinine ratio <30 mg/g Start:16-Dec-2020 Instruction Type:Provider Instructions for Treatment How to Access Health Informa tion Online using Patient Portal and [employer] Apps Indication:JESUS (obstructive sleep apnea) Start:16-Dec-2020 Instruction Type:Patient Education Patient Instructions Indication:Non-smoker Start:09-Dec-2020 Instruction Type:Provider Instructions for Treatment How to Access Health Informa tion Online using Patient Portal and [employer] Apps Indication:HTN (hypertension), benign Start:09-Dec-2020 Instruction Type:Patient Education How to access health informa tion online Indication:BMI 39.0-39.9,adult Start:01-Oct-2019 Instruction Type:Patient Education How to access health informa tion online - Detail Indication:BMI 39.0-39.9,adult Start:01-Oct-2019 Instruction Type:Patient Education Patient Instructions Indication:BMI 39.0-39.9,adult Start:01-Oct-2019 Instruction Type:Provider Instructions for Treatment How to access health informa tion online Indication:BMI 40.0-44.9, adult Start:31-Aug-2019 Instruction Type:Patient Education How to access health informa tion online - Detail Indication:BMI 40.0-44.9, adult Start:31-Aug-2019 Instruction Type:Patient Education Patient Instructions Indication:BMI 40.0-44.9, adult Start:31-Aug-2019 Instruction Type:Provider Instructions for Treatment How to access health informa tion online - Detail Indication:BMI 40.0-44.9, adult Start:27-Jul-2019 Instruction Type:Patient Education Patient Instructions Indication:BMI 40.0-44.9, adult Start:27-Jul-2019 Instruction Type:Provider Instructions for Treatment How to access health informa tion online Indication:Non-smoker Start:01-Dec-2018 Instruction Type:Patient Education How to access health informa tion online - Detail Indication:Non-smoker Start:01-Dec-2018 Instruction Type:Patient Education Patient Instructions Indication:Non-smoker Start:01-Dec-2018 Instruction Type:Provider Instructions for Treatment How to access health informa tion online Indication:BMI 39.0-39.9,adult Start:05-Nov-2018 Instruction Type:Patient Education How to access health informa tion online - Detail Indication:BMI 39.0-39.9,adult Start:05-Nov-2018 Instruction Type:Patient Education Patient Instructions Indication:BMI 39.0-39.9,adult Start:05-Nov-2018 Instruction Type:Provider Instructions for Treatment How to access health informa tion online Indication:Non-smoker Start:29-Oct-2018 Instruction Type:Patient Education How to access health informa tion online - Detail Indication:Non-smoker Start:29-Oct-2018 Instruction Type:Patient Education Patient Instructions Indication:Non-smoker Start:29-Oct-2018 Instruction Type:Provider Instructions for Treatment How to access health informa tion online - Detail Indication:Non-smoker Start:08-Oct-2018 Instruction Type:Patient Education How to access health informa tion online Indication:Non-smoker Start:08-Oct-2018 Instruction Type:Patient Education How to access health informa tion online Indication:Fever and chills Start:06-Aug-2017 Instruction Type:Patient Education How to access health informa tion online - Detail Indication:Fever and chills Start:06-Aug-2017 Instruction Type:Patient Education Patient Instructions Indication:Fever and chills Start:06-Aug-2017 Instruction Type:Provider Instructions for Treatment How to access health informa tion online Indication:Non-smoker Start:20-Sep-2016 Instruction Type:Patient Education How to access health informa tion online - Detail Indication:Non-smoker Start:20-Sep-2016 Instruction Type:Patient Education Patient Instructions Indication:Non-smoker Start:20-Sep-2016 Instruction Type:Provider Instructions for Treatment How to access health informa tion online Indication:Sinusitis Start:14-Apr-2015 Instruction Type:Patient Education How to access health informa tion online - Detail Indication:Sinusitis Start:14-Apr-2015 Instruction Type:Patient Education Patient Instructions Indication:Sinusitis Start:14-Apr-2015 Instruction Type:Provider Instructions for Treatment How to access health informa tion online Indication:Wheezing Start:19-Jan-2015 Instruction Type:Patient Education How to access health informa tion online - Detail Indication:Wheezing Start:19-Jan-2015 Instruction Type:Patient Education Patient Instructions Indication:Wheezing Start:19-Jan-2015 Instruction Type:Provider Instructions for Treatment Patient Instructions Indication:Red eye Start:05-Oct-2013 Instruction Type:Provider Instructions for Treatment Patient Instructions Indication:Knee Pain (Renamed from Arthralgia of knee) Start:29-Sep-2013 Instruction Type:Provider Instructions for Treatment Patient Instructions Indication:Obesity Start:01-Sep-2013 Instruction Type:Provider Instructions for Treatment Patient Instructions Indication:Flank pain Start:06-Jul-2013 Instruction Type:Provider Instructions for Treatment Patient Instructions Indication:Hematuria Start:01-Jun-2013 Instruction Type:Provider Instructions for Treatment Patient Instructions Indication:Dysthymic Start:26-May-2012 Instruction Type:Provider Instructions for Treatment [facility]; [facility] Work Phone: Instructions* Name Dates Details Patient Instructions Indication:Non-smoker Start:15-Mar-2022 Instruction Type:Provider Instructions for Treatment How to Access Health Informa tion Online using Patient Portal and [employer] Apps Indication:Non-smoker Start:15-Mar-2022 Instruction Type:Patient Education Patient Instructions Indication:Morbid obesity Start:08-Mar-2022 Instruction Type:Provider Instructions for Treatment How to Access Health Informa tion Online using Patient Portal and [employer] Apps Indication:Morbid obesity Start:08-Mar-2022 Instruction Type:Patient Education Patient Instructions Indication:Non-smoker Start:22-Feb-2022 Instruction Type:Provider Instructions for Treatment How to Access Health Informa tion Online using Patient Portal and [employer] Apps Indication:Non-smoker Start:22-Feb-2022 Instruction Type:Patient Education Patient Instructions Indication:Non-smoker Start:05-Feb-2022 Instruction Type:Provider Instructions for Treatment How to Access Health Informa tion Online using Patient Portal and [employer] Apps Indication:Non-smoker Start:05-Feb-2022 Instruction Type:Patient Education Patient Instructions Indication:Impaired fasting glucose Start:24-Jan-2022 Instruction Type:Provider Instructions for Treatment How to Access Health Informa tion Online using Patient Portal and [employer] Apps Indication:Impaired fasting glucose Start:24-Jan-2022 Instruction Type:Patient Education Patient Instructions Indication:BMI 39.0-39.9,adult Start:24-Oct-2021 Instruction Type:Provider Instructions for Treatment How to Access Health Informa tion Online using Patient Portal and [employer]rd [employer] Apps Indication:BMI 39.0-39.9,adult Start:24-Oct-2021 Instruction Type:Patient Education Patient Instructions Indication:BMI 39.0-39.9,adult Start:30-May-2021 Instruction Type:Provider Instructions for Treatment How to Access Health Informa tion Online using Patient Portal and [employer]rd [employer] Apps Indication:BMI 39.0-39.9,adult Start:30-May-2021 Instruction Type:Patient Education Patient Instructions Indication:Encounter for screening for malignant neoplasm of colon (Renamed from Special screening for malignant neoplasms, colon) Start:25-Apr-2021 Instruction Type:Provider Instructions for Treatment How to Access Health Informa tion Online using Patient Portal and [employer]rd [employer] Apps Indication:Non-smoker Start:25-Apr-2021 Instruction Type:Patient Education Patient Instructions Indication:Non-smoker Start:17-Jan-2021 Instruction Type:Provider Instructions for Treatment How to Access Health Informa tion Online using Patient Portal and [employer]rd [employer] Apps Indication:Non-smoker Start:17-Jan-2021 Instruction Type:Patient Education Patient Instructions Indication:CKD stage G3b/A1, GFR 30-44 and albumin creatinine ratio <30 mg/g Start:16-Dec-2020 Instruction Type:Provider Instructions for Treatment How to Access Health Informa tion Online using Patient Portal and [employer]rd [employer] Apps Indication:JESUS (obstructive sleep apnea) Start:16-Dec-2020 Instruction Type:Patient Education Patient Instructions Indication:Non-smoker Start:09-Dec-2020 Instruction Type:Provider Instructions for Treatment How to Access Health Informa tion Online using Patient Portal and [employer] Apps Indication:HTN (hypertension), benign Start:09-Dec-2020 Instruction Type:Patient Education How to access health informa tion online Indication:BMI 39.0-39.9,adult Start:01-Oct-2019 Instruction Type:Patient Education How to access health informa tion online - Detail Indication:BMI 39.0-39.9,adult Start:01-Oct-2019 Instruction Type:Patient Education Patient Instructions Indication:BMI 39.0-39.9,adult Start:01-Oct-2019 Instruction Type:Provider Instructions for Treatment How to access health informa tion online Indication:BMI 40.0-44.9, adult Start:31-Aug-2019 Instruction Type:Patient Education How to access health informa tion online - Detail Indication:BMI 40.0-44.9, adult Start:31-Aug-2019 Instruction Type:Patient Education Patient Instructions Indication:BMI 40.0-44.9, adult Start:31-Aug-2019 Instruction Type:Provider Instructions for Treatment How to access health informa tion online - Detail Indication:BMI 40.0-44.9, adult Start:27-Jul-2019 Instruction Type:Patient Education Patient Instructions Indication:BMI 40.0-44.9, adult Start:27-Jul-2019 Instruction Type:Provider Instructions for Treatment How to access health informa tion online Indication:Non-smoker Start:01-Dec-2018 Instruction Type:Patient Education How to access health informa tion online - Detail Indication:Non-smoker Start:01-Dec-2018 Instruction Type:Patient Education Patient Instructions Indication:Non-smoker Start:01-Dec-2018 Instruction Type:Provider Instructions for Treatment How to access health informa tion online Indication:BMI 39.0-39.9,adult Start:05-Nov-2018 Instruction Type:Patient Education How to access health informa tion online - Detail Indication:BMI 39.0-39.9,adult Start:05-Nov-2018 Instruction Type:Patient Education Patient Instructions Indication:BMI 39.0-39.9,adult Start:05-Nov-2018 Instruction Type:Provider Instructions for Treatment How to access health informa tion online Indication:Non-smoker Start:29-Oct-2018 Instruction Type:Patient Education How to access health informa tion online - Detail Indication:Non-smoker Start:29-Oct-2018 Instruction Type:Patient Education Patient Instructions Indication:Non-smoker Start:29-Oct-2018 Instruction Type:Provider Instructions for Treatment How to access health informa tion online - Detail Indication:Non-smoker Start:08-Oct-2018 Instruction Type:Patient Education How to access health informa tion online Indication:Non-smoker Start:08-Oct-2018 Instruction Type:Patient Education How to access health informa tion online Indication:Fever and chills Start:06-Aug-2017 Instruction Type:Patient Education How to access health informa tion online - Detail Indication:Fever and chills Start:06-Aug-2017 Instruction Type:Patient Education Patient Instructions Indication:Fever and chills Start:06-Aug-2017 Instruction Type:Provider Instructions for Treatment How to access health informa tion online Indication:Non-smoker Start:20-Sep-2016 Instruction Type:Patient Education How to access health informa tion online - Detail Indication:Non-smoker Start:20-Sep-2016 Instruction Type:Patient Education Patient Instructions Indication:Non-smoker Start:20-Sep-2016 Instruction Type:Provider Instructions for Treatment How to access health informa tion online Indication:Sinusitis Start:14-Apr-2015 Instruction Type:Patient Education How to access health informa tion online - Detail Indication:Sinusitis Start:14-Apr-2015 Instruction Type:Patient Education Patient Instructions Indication:Sinusitis Start:14-Apr-2015 Instruction Type:Provider Instructions for Treatment How to access health informa tion online Indication:Wheezing Start:19-Jan-2015 Instruction Type:Patient Education How to access health informa tion online - Detail Indication:Wheezing Start:19-Jan-2015 Instruction Type:Patient Education Patient Instructions Indication:Wheezing Start:19-Jan-2015 Instruction Type:Provider Instructions for Treatment Patient Instructions Indication:Red eye Start:05-Oct-2013 Instruction Type:Provider Instructions for Treatment Patient Instructions Indication:Knee Pain (Renamed from Arthralgia of knee) Start:29-Sep-2013 Instruction Type:Provider Instructions for Treatment Patient Instructions Indication:Obesity Start:01-Sep-2013 Instruction Type:Provider Instructions for Treatment Patient Instructions Indication:Flank pain Start:06-Jul-2013 Instruction Type:Provider Instructions for Treatment Patient Instructions Indication:Hematuria Start:01-Jun-2013 Instruction Type:Provider Instructions for Treatment Patient Instructions Indication:Dysthymic Start:26-May-2012 Instruction Type:Provider Instructions for Treatment [facility]; [facility] Work Phone: Instructions* Name Dates Details Patient Instructions Indication:Non-smoker Start:15-Mar-2022 Instruction Type:Provider Instructions for Treatment How to Access Health Informa tion Online using Patient Portal and [employer]rd [employer] Apps Indication:Non-smoker Start:15-Mar-2022 Instruction Type:Patient Education Patient Instructions Indication:Morbid obesity Start:08-Mar-2022 Instruction Type:Provider Instructions for Treatment How to Access Health Informa tion Online using Patient Portal and [employer] Apps Indication:Morbid obesity Start:08-Mar-2022 Instruction Type:Patient Education Patient Instructions Indication:Non-smoker Start:22-Feb-2022 Instruction Type:Provider Instructions for Treatment How to Access Health Informa tion Online using Patient Portal and [employer] Apps Indication:Non-smoker Start:22-Feb-2022 Instruction Type:Patient Education Patient Instructions Indication:Non-smoker Start:05-Feb-2022 Instruction Type:Provider Instructions for Treatment How to Access Health Informa tion Online using Patient Portal and [employer] Apps Indication:Non-smoker Start:05-Feb-2022 Instruction Type:Patient Education Patient Instructions Indication:Impaired fasting glucose Start:24-Jan-2022 Instruction Type:Provider Instructions for Treatment How to Access Health Informa tion Online using Patient Portal and [employer] Apps Indication:Impaired fasting glucose Start:24-Jan-2022 Instruction Type:Patient Education Patient Instructions Indication:BMI 39.0-39.9,adult Start:24-Oct-2021 Instruction Type:Provider Instructions for Treatment How to Access Health Informa tion Online using Patient Portal and [employer] Apps Indication:BMI 39.0-39.9,adult Start:24-Oct-2021 Instruction Type:Patient Education Patient Instructions Indication:BMI 39.0-39.9,adult Start:30-May-2021 Instruction Type:Provider Instructions for Treatment How to Access Health Informa tion Online using Patient Portal and [employer]rd [employer] Apps Indication:BMI 39.0-39.9,adult Start:30-May-2021 Instruction Type:Patient Education Patient Instructions Indication:Encounter for screening for malignant neoplasm of colon (Renamed from Special screening for malignant neoplasms, colon) Start:25-Apr-2021 Instruction Type:Provider Instructions for Treatment How to Access Health Informa tion Online using Patient Portal and [employer] Apps Indication:Non-smoker Start:25-Apr-2021 Instruction Type:Patient Education Patient Instructions Indication:Non-smoker Start:17-Jan-2021 Instruction Type:Provider Instructions for Treatment How to Access Health Informa tion Online using Patient Portal and [employer] Apps Indication:Non-smoker Start:17-Jan-2021 Instruction Type:Patient Education Patient Instructions Indication:CKD stage G3b/A1, GFR 30-44 and albumin creatinine ratio <30 mg/g Start:16-Dec-2020 Instruction Type:Provider Instructions for Treatment How to Access Health Informa tion Online using Patient Portal and [employer] Apps Indication:JESUS (obstructive sleep apnea) Start:16-Dec-2020 Instruction Type:Patient Education Patient Instructions Indication:Non-smoker Start:09-Dec-2020 Instruction Type:Provider Instructions for Treatment How to Access Health Informa tion Online using Patient Portal and [employer] Apps Indication:HTN (hypertension), benign Start:09-Dec-2020 Instruction Type:Patient Education How to access health informa tion online Indication:BMI 39.0-39.9,adult Start:01-Oct-2019 Instruction Type:Patient Education How to access health informa tion online - Detail Indication:BMI 39.0-39.9,adult Start:01-Oct-2019 Instruction Type:Patient Education Patient Instructions Indication:BMI 39.0-39.9,adult Start:01-Oct-2019 Instruction Type:Provider Instructions for Treatment How to access health informa tion online Indication:BMI 40.0-44.9, adult Start:31-Aug-2019 Instruction Type:Patient Education How to access health informa tion online - Detail Indication:BMI 40.0-44.9, adult Start:31-Aug-2019 Instruction Type:Patient Education Patient Instructions Indication:BMI 40.0-44.9, adult Start:31-Aug-2019 Instruction Type:Provider Instructions for Treatment How to access health informa tion online - Detail Indication:BMI 40.0-44.9, adult Start:27-Jul-2019 Instruction Type:Patient Education Patient Instructions Indication:BMI 40.0-44.9, adult Start:27-Jul-2019 Instruction Type:Provider Instructions for Treatment How to access health informa tion online Indication:Non-smoker Start:01-Dec-2018 Instruction Type:Patient Education How to access health informa tion online - Detail Indication:Non-smoker Start:01-Dec-2018 Instruction Type:Patient Education Patient Instructions Indication:Non-smoker Start:01-Dec-2018 Instruction Type:Provider Instructions for Treatment How to access health informa tion online Indication:BMI 39.0-39.9,adult Start:05-Nov-2018 Instruction Type:Patient Education How to access health informa tion online - Detail Indication:BMI 39.0-39.9,adult Start:05-Nov-2018 Instruction Type:Patient Education Patient Instructions Indication:BMI 39.0-39.9,adult Start:05-Nov-2018 Instruction Type:Provider Instructions for Treatment How to access health informa tion online Indication:Non-smoker Start:29-Oct-2018 Instruction Type:Patient Education How to access health informa tion online - Detail Indication:Non-smoker Start:29-Oct-2018 Instruction Type:Patient Education Patient Instructions Indication:Non-smoker Start:29-Oct-2018 Instruction Type:Provider Instructions for Treatment How to access health informa tion online - Detail Indication:Non-smoker Start:08-Oct-2018 Instruction Type:Patient Education How to access health informa tion online Indication:Non-smoker Start:08-Oct-2018 Instruction Type:Patient Education How to access health informa tion online Indication:Fever and chills Start:06-Aug-2017 Instruction Type:Patient Education How to access health informa tion online - Detail Indication:Fever and chills Start:06-Aug-2017 Instruction Type:Patient Education Patient Instructions Indication:Fever and chills Start:06-Aug-2017 Instruction Type:Provider Instructions for Treatment How to access health informa tion online Indication:Non-smoker Start:20-Sep-2016 Instruction Type:Patient Education How to access health informa tion online - Detail Indication:Non-smoker Start:20-Sep-2016 Instruction Type:Patient Education Patient Instructions Indication:Non-smoker Start:20-Sep-2016 Instruction Type:Provider Instructions for Treatment How to access health informa tion online Indication:Sinusitis Start:14-Apr-2015 Instruction Type:Patient Education How to access health informa tion online - Detail Indication:Sinusitis Start:14-Apr-2015 Instruction Type:Patient Education Patient Instructions Indication:Sinusitis Start:14-Apr-2015 Instruction Type:Provider Instructions for Treatment How to access health informa tion online Indication:Wheezing Start:19-Jan-2015 Instruction Type:Patient Education How to access health informa tion online - Detail Indication:Wheezing Start:19-Jan-2015 Instruction Type:Patient Education Patient Instructions Indication:Wheezing Start:19-Jan-2015 Instruction Type:Provider Instructions for Treatment Patient Instructions Indication:Red eye Start:05-Oct-2013 Instruction Type:Provider Instructions for Treatment Patient Instructions Indication:Knee Pain (Renamed from Arthralgia of knee) Start:29-Sep-2013 Instruction Type:Provider Instructions for Treatment Patient Instructions Indication:Obesity Start:01-Sep-2013 Instruction Type:Provider Instructions for Treatment Patient Instructions Indication:Flank pain Start:06-Jul-2013 Instruction Type:Provider Instructions for Treatment Patient Instructions Indication:Hematuria Start:01-Jun-2013 Instruction Type:Provider Instructions for Treatment Patient Instructions Indication:Dysthymic Start:26-May-2012 Instruction Type:Provider Instructions for Treatment [facility]; [facility] Work Phone: Instructions* Name Dates Details Patient Instructions Indication:BMI 40.0-44.9, adult Start:25-Oct-2022 Instruction Type:Provider Instructions for Treatment How to Access Health Informa tion Online using Patient Portal and [employer] Apps Indication:BMI 40.0-44.9, adult Start:25-Oct-2022 Instruction Type:Patient Education Patient Instructions Indication:Non-smoker Start:15-Mar-2022 Instruction Type:Provider Instructions for Treatment How to Access Health Informa tion Online using Patient Portal and [employer] Apps Indication:Non-smoker Start:15-Mar-2022 Instruction Type:Patient Education Patient Instructions Indication:Morbid obesity Start:08-Mar-2022 Instruction Type:Provider Instructions for Treatment How to Access Health Informa tion Online using Patient Portal and [employer] Apps Indication:Morbid obesity Start:08-Mar-2022 Instruction Type:Patient Education Patient Instructions Indication:Non-smoker Start:22-Feb-2022 Instruction Type:Provider Instructions for Treatment How to Access Health Informa tion Online using Patient Portal and [employer] Apps Indication:Non-smoker Start:22-Feb-2022 Instruction Type:Patient Education Patient Instructions Indication:Non-smoker Start:05-Feb-2022 Instruction Type:Provider Instructions for Treatment How to Access Health Informa tion Online using Patient Portal and [employer] Apps Indication:Non-smoker Start:05-Feb-2022 Instruction Type:Patient Education Patient Instructions Indication:Impaired fasting glucose Start:24-Jan-2022 Instruction Type:Provider Instructions for Treatment How to Access Health Informa tion Online using Patient Portal and [employer]rd [employer] Apps Indication:Impaired fasting glucose Start:24-Jan-2022 Instruction Type:Patient Education Patient Instructions Indication:BMI 39.0-39.9,adult Start:24-Oct-2021 Instruction Type:Provider Instructions for Treatment How to Access Health Informa tion Online using Patient Portal and [employer] Apps Indication:BMI 39.0-39.9,adult Start:24-Oct-2021 Instruction Type:Patient Education Patient Instructions Indication:BMI 39.0-39.9,adult Start:30-May-2021 Instruction Type:Provider Instructions for Treatment How to Access Health Informa tion Online using Patient Portal and [employer] Apps Indication:BMI 39.0-39.9,adult Start:30-May-2021 Instruction Type:Patient Education Patient Instructions Indication:Encounter for screening for malignant neoplasm of colon (Renamed from Special screening for malignant neoplasms, colon) Start:25-Apr-2021 Instruction Type:Provider Instructions for Treatment How to Access Health Informa tion Online using Patient Portal and [employer] Apps Indication:Non-smoker Start:25-Apr-2021 Instruction Type:Patient Education Patient Instructions Indication:Non-smoker Start:17-Jan-2021 Instruction Type:Provider Instructions for Treatment How to Access Health Informa tion Online using Patient Portal and [employer] Apps Indication:Non-smoker Start:17-Jan-2021 Instruction Type:Patient Education Patient Instructions Indication:CKD stage G3b/A1, GFR 30-44 and albumin creatinine ratio <30 mg/g Start:16-Dec-2020 Instruction Type:Provider Instructions for Treatment How to Access Health Informa tion Online using Patient Portal and [employer]rd [employer] Apps Indication:JESUS (obstructive sleep apnea) Start:16-Dec-2020 Instruction Type:Patient Education Patient Instructions Indication:Non-smoker Start:09-Dec-2020 Instruction Type:Provider Instructions for Treatment How to Access Health Informa tion Online using Patient Portal and [employer] Apps Indication:HTN (hypertension), benign Start:09-Dec-2020 Instruction Type:Patient Education How to access health informa tion online Indication:BMI 39.0-39.9,adult Start:01-Oct-2019 Instruction Type:Patient Education How to access health informa tion online - Detail Indication:BMI 39.0-39.9,adult Start:01-Oct-2019 Instruction Type:Patient Education Patient Instructions Indication:BMI 39.0-39.9,adult Start:01-Oct-2019 Instruction Type:Provider Instructions for Treatment How to access health informa tion online Indication:BMI 40.0-44.9, adult Start:31-Aug-2019 Instruction Type:Patient Education How to access health informa tion online - Detail Indication:BMI 40.0-44.9, adult Start:31-Aug-2019 Instruction Type:Patient Education Patient Instructions Indication:BMI 40.0-44.9, adult Start:31-Aug-2019 Instruction Type:Provider Instructions for Treatment How to access health informa tion online - Detail Indication:BMI 40.0-44.9, adult Start:27-Jul-2019 Instruction Type:Patient Education Patient Instructions Indication:BMI 40.0-44.9, adult Start:27-Jul-2019 Instruction Type:Provider Instructions for Treatment How to access health informa tion online Indication:Non-smoker Start:01-Dec-2018 Instruction Type:Patient Education How to access health informa tion online - Detail Indication:Non-smoker Start:01-Dec-2018 Instruction Type:Patient Education Patient Instructions Indication:Non-smoker Start:01-Dec-2018 Instruction Type:Provider Instructions for Treatment How to access health informa tion online Indication:BMI 39.0-39.9,adult Start:05-Nov-2018 Instruction Type:Patient Education How to access health informa tion online - Detail Indication:BMI 39.0-39.9,adult Start:05-Nov-2018 Instruction Type:Patient Education Patient Instructions Indication:BMI 39.0-39.9,adult Start:05-Nov-2018 Instruction Type:Provider Instructions for Treatment How to access health informa tion online Indication:Non-smoker Start:29-Oct-2018 Instruction Type:Patient Education How to access health informa tion online - Detail Indication:Non-smoker Start:29-Oct-2018 Instruction Type:Patient Education Patient Instructions Indication:Non-smoker Start:29-Oct-2018 Instruction Type:Provider Instructions for Treatment How to access health informa tion online - Detail Indication:Non-smoker Start:08-Oct-2018 Instruction Type:Patient Education How to access health informa tion online Indication:Non-smoker Start:08-Oct-2018 Instruction Type:Patient Education How to access health informa tion online Indication:Fever and chills Start:06-Aug-2017 Instruction Type:Patient Education How to access health informa tion online - Detail Indication:Fever and chills Start:06-Aug-2017 Instruction Type:Patient Education Patient Instructions Indication:Fever and chills Start:06-Aug-2017 Instruction Type:Provider Instructions for Treatment How to access health informa tion online Indication:Non-smoker Start:20-Sep-2016 Instruction Type:Patient Education How to access health informa tion online - Detail Indication:Non-smoker Start:20-Sep-2016 Instruction Type:Patient Education Patient Instructions Indication:Non-smoker Start:20-Sep-2016 Instruction Type:Provider Instructions for Treatment How to access health informa tion online Indication:Sinusitis Start:14-Apr-2015 Instruction Type:Patient Education How to access health informa tion online - Detail Indication:Sinusitis Start:14-Apr-2015 Instruction Type:Patient Education Patient Instructions Indication:Sinusitis Start:14-Apr-2015 Instruction Type:Provider Instructions for Treatment How to access health informa tion online Indication:Wheezing Start:19-Jan-2015 Instruction Type:Patient Education How to access health informa tion online - Detail Indication:Wheezing Start:19-Jan-2015 Instruction Type:Patient Education Patient Instructions Indication:Wheezing Start:19-Jan-2015 Instruction Type:Provider Instructions for Treatment Patient Instructions Indication:Red eye Start:05-Oct-2013 Instruction Type:Provider Instructions for Treatment Patient Instructions Indication:Knee Pain (Renamed from Arthralgia of knee) Start:29-Sep-2013 Instruction Type:Provider Instructions for Treatment Patient Instructions Indication:Obesity Start:01-Sep-2013 Instruction Type:Provider Instructions for Treatment Patient Instructions Indication:Flank pain Start:06-Jul-2013 Instruction Type:Provider Instructions for Treatment Patient Instructions Indication:Hematuria Start:01-Jun-2013 Instruction Type:Provider Instructions for Treatment Patient Instructions Indication:Dysthymic Start:26-May-2012 Instruction Type:Provider Instructions for Treatment [facility]; [facility] Work Phone: Instructions* Name Dates Details Patient Instructions Indication:BMI 40.0-44.9, adult Start:25-Oct-2022 Instruction Type:Provider Instructions for Treatment How to Access Health Informa tion Online using Patient Portal and [employer] Apps Indication:BMI 40.0-44.9, adult Start:25-Oct-2022 Instruction Type:Patient Education Patient Instructions Indication:Non-smoker Start:15-Mar-2022 Instruction Type:Provider Instructions for Treatment How to Access Health Informa tion Online using Patient Portal and [employer] Apps Indication:Non-smoker Start:15-Mar-2022 Instruction Type:Patient Education Patient Instructions Indication:Morbid obesity Start:08-Mar-2022 Instruction Type:Provider Instructions for Treatment How to Access Health Informa tion Online using Patient Portal and [employer] Apps Indication:Morbid obesity Start:08-Mar-2022 Instruction Type:Patient Education Patient Instructions Indication:Non-smoker Start:22-Feb-2022 Instruction Type:Provider Instructions for Treatment How to Access Health Informa tion Online using Patient Portal and [employer] Apps Indication:Non-smoker Start:22-Feb-2022 Instruction Type:Patient Education Patient Instructions Indication:Non-smoker Start:05-Feb-2022 Instruction Type:Provider Instructions for Treatment How to Access Health Informa tion Online using Patient Portal and [employer] Apps Indication:Non-smoker Start:05-Feb-2022 Instruction Type:Patient Education Patient Instructions Indication:Impaired fasting glucose Start:24-Jan-2022 Instruction Type:Provider Instructions for Treatment How to Access Health Informa tion Online using Patient Portal and [employer] Apps Indication:Impaired fasting glucose Start:24-Jan-2022 Instruction Type:Patient Education Patient Instructions Indication:BMI 39.0-39.9,adult Start:24-Oct-2021 Instruction Type:Provider Instructions for Treatment How to Access Health Informa tion Online using Patient Portal and [employer] Apps Indication:BMI 39.0-39.9,adult Start:24-Oct-2021 Instruction Type:Patient Education Patient Instructions Indication:BMI 39.0-39.9,adult Start:30-May-2021 Instruction Type:Provider Instructions for Treatment How to Access Health Informa tion Online using Patient Portal and [employer] Apps Indication:BMI 39.0-39.9,adult Start:30-May-2021 Instruction Type:Patient Education Patient Instructions Indication:Encounter for screening for malignant neoplasm of colon (Renamed from Special screening for malignant neoplasms, colon) Start:25-Apr-2021 Instruction Type:Provider Instructions for Treatment How to Access Health Informa tion Online using Patient Portal and [employer] Apps Indication:Non-smoker Start:25-Apr-2021 Instruction Type:Patient Education Patient Instructions Indication:Non-smoker Start:17-Jan-2021 Instruction Type:Provider Instructions for Treatment How to Access Health Informa tion Online using Patient Portal and [employer] Apps Indication:Non-smoker Start:17-Jan-2021 Instruction Type:Patient Education Patient Instructions Indication:CKD stage G3b/A1, GFR 30-44 and albumin creatinine ratio <30 mg/g Start:16-Dec-2020 Instruction Type:Provider Instructions for Treatment How to Access Health Informa tion Online using Patient Portal and [employer]rd [employer] Apps Indication:JESUS (obstructive sleep apnea) Start:16-Dec-2020 Instruction Type:Patient Education Patient Instructions Indication:Non-smoker Start:09-Dec-2020 Instruction Type:Provider Instructions for Treatment How to Access Health Informa tion Online using Patient Portal and [employer] Apps Indication:HTN (hypertension), benign Start:09-Dec-2020 Instruction Type:Patient Education How to access health informa tion online Indication:BMI 39.0-39.9,adult Start:01-Oct-2019 Instruction Type:Patient Education How to access health informa tion online - Detail Indication:BMI 39.0-39.9,adult Start:01-Oct-2019 Instruction Type:Patient Education Patient Instructions Indication:BMI 39.0-39.9,adult Start:01-Oct-2019 Instruction Type:Provider Instructions for Treatment How to access health informa tion online Indication:BMI 40.0-44.9, adult Start:31-Aug-2019 Instruction Type:Patient Education How to access health informa tion online - Detail Indication:BMI 40.0-44.9, adult Start:31-Aug-2019 Instruction Type:Patient Education Patient Instructions Indication:BMI 40.0-44.9, adult Start:31-Aug-2019 Instruction Type:Provider Instructions for Treatment How to access health informa tion online - Detail Indication:BMI 40.0-44.9, adult Start:27-Jul-2019 Instruction Type:Patient Education Patient Instructions Indication:BMI 40.0-44.9, adult Start:27-Jul-2019 Instruction Type:Provider Instructions for Treatment How to access health informa tion online Indication:Non-smoker Start:01-Dec-2018 Instruction Type:Patient Education How to access health informa tion online - Detail Indication:Non-smoker Start:01-Dec-2018 Instruction Type:Patient Education Patient Instructions Indication:Non-smoker Start:01-Dec-2018 Instruction Type:Provider Instructions for Treatment How to access health informa tion online Indication:BMI 39.0-39.9,adult Start:05-Nov-2018 Instruction Type:Patient Education How to access health informa tion online - Detail Indication:BMI 39.0-39.9,adult Start:05-Nov-2018 Instruction Type:Patient Education Patient Instructions Indication:BMI 39.0-39.9,adult Start:05-Nov-2018 Instruction Type:Provider Instructions for Treatment How to access health informa tion online Indication:Non-smoker Start:29-Oct-2018 Instruction Type:Patient Education How to access health informa tion online - Detail Indication:Non-smoker Start:29-Oct-2018 Instruction Type:Patient Education Patient Instructions Indication:Non-smoker Start:29-Oct-2018 Instruction Type:Provider Instructions for Treatment How to access health informa tion online - Detail Indication:Non-smoker Start:08-Oct-2018 Instruction Type:Patient Education How to access health informa tion online Indication:Non-smoker Start:08-Oct-2018 Instruction Type:Patient Education How to access health informa tion online Indication:Fever and chills Start:06-Aug-2017 Instruction Type:Patient Education How to access health informa tion online - Detail Indication:Fever and chills Start:06-Aug-2017 Instruction Type:Patient Education Patient Instructions Indication:Fever and chills Start:06-Aug-2017 Instruction Type:Provider Instructions for Treatment How to access health informa tion online Indication:Non-smoker Start:20-Sep-2016 Instruction Type:Patient Education How to access health informa tion online - Detail Indication:Non-smoker Start:20-Sep-2016 Instruction Type:Patient Education Patient Instructions Indication:Non-smoker Start:20-Sep-2016 Instruction Type:Provider Instructions for Treatment How to access health informa tion online Indication:Sinusitis Start:14-Apr-2015 Instruction Type:Patient Education How to access health informa tion online - Detail Indication:Sinusitis Start:14-Apr-2015 Instruction Type:Patient Education Patient Instructions Indication:Sinusitis Start:14-Apr-2015 Instruction Type:Provider Instructions for Treatment How to access health informa tion online Indication:Wheezing Start:19-Jan-2015 Instruction Type:Patient Education How to access health informa tion online - Detail Indication:Wheezing Start:19-Jan-2015 Instruction Type:Patient Education Patient Instructions Indication:Wheezing Start:19-Jan-2015 Instruction Type:Provider Instructions for Treatment Patient Instructions Indication:Red eye Start:05-Oct-2013 Instruction Type:Provider Instructions for Treatment Patient Instructions Indication:Knee Pain (Renamed from Arthralgia of knee) Start:29-Sep-2013 Instruction Type:Provider Instructions for Treatment Patient Instructions Indication:Obesity Start:01-Sep-2013 Instruction Type:Provider Instructions for Treatment Patient Instructions Indication:Flank pain Start:06-Jul-2013 Instruction Type:Provider Instructions for Treatment Patient Instructions Indication:Hematuria Start:01-Jun-2013 Instruction Type:Provider Instructions for Treatment Patient Instructions Indication:Dysthymic Start:26-May-2012 Instruction Type:Provider Instructions for Treatment [facility]; [facility] Work Phone: Instructions* Name Dates Details Patient Instructions Indication:BMI 40.0-44.9, adult Start:25-Oct-2022 Instruction Type:Provider Instructions for Treatment How to Access Health Informa tion Online using Patient Portal and [employer]rd [employer] Apps Indication:BMI 40.0-44.9, adult Start:25-Oct-2022 Instruction Type:Patient Education Patient Instructions Indication:Non-smoker Start:15-Mar-2022 Instruction Type:Provider Instructions for Treatment How to Access Health Informa tion Online using Patient Portal and [employer]rd [employer] Apps Indication:Non-smoker Start:15-Mar-2022 Instruction Type:Patient Education Patient Instructions Indication:Morbid obesity Start:08-Mar-2022 Instruction Type:Provider Instructions for Treatment How to Access Health Informa tion Online using Patient Portal and [employer]rd [employer] Apps Indication:Morbid obesity Start:08-Mar-2022 Instruction Type:Patient Education Patient Instructions Indication:Non-smoker Start:22-Feb-2022 Instruction Type:Provider Instructions for Treatment How to Access Health Informa tion Online using Patient Portal and [employer]rd [employer] Apps Indication:Non-smoker Start:22-Feb-2022 Instruction Type:Patient Education Patient Instructions Indication:Non-smoker Start:05-Feb-2022 Instruction Type:Provider Instructions for Treatment How to Access Health Informa tion Online using Patient Portal and [employer]rd [employer] Apps Indication:Non-smoker Start:05-Feb-2022 Instruction Type:Patient Education Patient Instructions Indication:Impaired fasting glucose Start:24-Jan-2022 Instruction Type:Provider Instructions for Treatment How to Access Health Informa tion Online using Patient Portal and [employer]rd [employer] Apps Indication:Impaired fasting glucose Start:24-Jan-2022 Instruction Type:Patient Education Patient Instructions Indication:BMI 39.0-39.9,adult Start:24-Oct-2021 Instruction Type:Provider Instructions for Treatment How to Access Health Informa tion Online using Patient Portal and [employer]rd [employer] Apps Indication:BMI 39.0-39.9,adult Start:24-Oct-2021 Instruction Type:Patient Education Patient Instructions Indication:BMI 39.0-39.9,adult Start:30-May-2021 Instruction Type:Provider Instructions for Treatment How to Access Health Informa tion Online using Patient Portal and [employer]rd [employer] Apps Indication:BMI 39.0-39.9,adult Start:30-May-2021 Instruction Type:Patient Education Patient Instructions Indication:Encounter for screening for malignant neoplasm of colon (Renamed from Special screening for malignant neoplasms, colon) Start:25-Apr-2021 Instruction Type:Provider Instructions for Treatment How to Access Health Informa tion Online using Patient Portal and [employer] Apps Indication:Non-smoker Start:25-Apr-2021 Instruction Type:Patient Education Patient Instructions Indication:Non-smoker Start:17-Jan-2021 Instruction Type:Provider Instructions for Treatment How to Access Health Informa tion Online using Patient Portal and [employer] Apps Indication:Non-smoker Start:17-Jan-2021 Instruction Type:Patient Education Patient Instructions Indication:CKD stage G3b/A1, GFR 30-44 and albumin creatinine ratio <30 mg/g Start:16-Dec-2020 Instruction Type:Provider Instructions for Treatment How to Access Health Informa tion Online using Patient Portal and [employer]rd [employer] Apps Indication:JESUS (obstructive sleep apnea) Start:16-Dec-2020 Instruction Type:Patient Education Patient Instructions Indication:Non-smoker Start:09-Dec-2020 Instruction Type:Provider Instructions for Treatment How to Access Health Informa tion Online using Patient Portal and [employer]rd [employer] Apps Indication:HTN (hypertension), benign Start:09-Dec-2020 Instruction Type:Patient Education How to access health informa tion online Indication:BMI 39.0-39.9,adult Start:01-Oct-2019 Instruction Type:Patient Education How to access health informa tion online - Detail Indication:BMI 39.0-39.9,adult Start:01-Oct-2019 Instruction Type:Patient Education Patient Instructions Indication:BMI 39.0-39.9,adult Start:01-Oct-2019 Instruction Type:Provider Instructions for Treatment How to access health informa tion online Indication:BMI 40.0-44.9, adult Start:31-Aug-2019 Instruction Type:Patient Education How to access health informa tion online - Detail Indication:BMI 40.0-44.9, adult Start:31-Aug-2019 Instruction Type:Patient Education Patient Instructions Indication:BMI 40.0-44.9, adult Start:31-Aug-2019 Instruction Type:Provider Instructions for Treatment How to access health informa tion online - Detail Indication:BMI 40.0-44.9, adult Start:27-Jul-2019 Instruction Type:Patient Education Patient Instructions Indication:BMI 40.0-44.9, adult Start:27-Jul-2019 Instruction Type:Provider Instructions for Treatment How to access health informa tion online Indication:Non-smoker Start:01-Dec-2018 Instruction Type:Patient Education How to access health informa tion online - Detail Indication:Non-smoker Start:01-Dec-2018 Instruction Type:Patient Education Patient Instructions Indication:Non-smoker Start:01-Dec-2018 Instruction Type:Provider Instructions for Treatment How to access health informa tion online Indication:BMI 39.0-39.9,adult Start:05-Nov-2018 Instruction Type:Patient Education How to access health informa tion online - Detail Indication:BMI 39.0-39.9,adult Start:05-Nov-2018 Instruction Type:Patient Education Patient Instructions Indication:BMI 39.0-39.9,adult Start:05-Nov-2018 Instruction Type:Provider Instructions for Treatment How to access health informa tion online Indication:Non-smoker Start:29-Oct-2018 Instruction Type:Patient Education How to access health informa tion online - Detail Indication:Non-smoker Start:29-Oct-2018 Instruction Type:Patient Education Patient Instructions Indication:Non-smoker Start:29-Oct-2018 Instruction Type:Provider Instructions for Treatment How to access health informa tion online - Detail Indication:Non-smoker Start:08-Oct-2018 Instruction Type:Patient Education How to access health informa tion online Indication:Non-smoker Start:08-Oct-2018 Instruction Type:Patient Education How to access health informa tion online Indication:Fever and chills Start:06-Aug-2017 Instruction Type:Patient Education How to access health informa tion online - Detail Indication:Fever and chills Start:06-Aug-2017 Instruction Type:Patient Education Patient Instructions Indication:Fever and chills Start:06-Aug-2017 Instruction Type:Provider Instructions for Treatment How to access health informa tion online Indication:Non-smoker Start:20-Sep-2016 Instruction Type:Patient Education How to access health informa tion online - Detail Indication:Non-smoker Start:20-Sep-2016 Instruction Type:Patient Education Patient Instructions Indication:Non-smoker Start:20-Sep-2016 Instruction Type:Provider Instructions for Treatment How to access health informa tion online Indication:Sinusitis Start:14-Apr-2015 Instruction Type:Patient Education How to access health informa tion online - Detail Indication:Sinusitis Start:14-Apr-2015 Instruction Type:Patient Education Patient Instructions Indication:Sinusitis Start:14-Apr-2015 Instruction Type:Provider Instructions for Treatment How to access health informa tion online Indication:Wheezing Start:19-Jan-2015 Instruction Type:Patient Education How to access health informa tion online - Detail Indication:Wheezing Start:19-Jan-2015 Instruction Type:Patient Education Patient Instructions Indication:Wheezing Start:19-Jan-2015 Instruction Type:Provider Instructions for Treatment Patient Instructions Indication:Red eye Start:05-Oct-2013 Instruction Type:Provider Instructions for Treatment Patient Instructions Indication:Knee Pain (Renamed from Arthralgia of knee) Start:29-Sep-2013 Instruction Type:Provider Instructions for Treatment Patient Instructions Indication:Obesity Start:01-Sep-2013 Instruction Type:Provider Instructions for Treatment Patient Instructions Indication:Flank pain Start:06-Jul-2013 Instruction Type:Provider Instructions for Treatment Patient Instructions Indication:Hematuria Start:01-Jun-2013 Instruction Type:Provider Instructions for Treatment Patient Instructions Indication:Dysthymic Start:26-May-2012 Instruction Type:Provider Instructions for Treatment [facility]; [facility] Work Phone: Instructions* Name Dates Details Patient Instructions Indication:Non-smoker Start:25-Feb-2023 Instruction Type:Provider Instructions for Treatment How to Access Health Informa tion Online using Patient Portal and [employer] Apps Indication:Non-smoker Start:25-Feb-2023 Instruction Type:Patient Education Patient Instructions Indication:BMI 40.0-44.9, adult Start:25-Oct-2022 Instruction Type:Provider Instructions for Treatment How to Access Health Informa tion Online using Patient Portal and [employer] Apps Indication:BMI 40.0-44.9, adult Start:25-Oct-2022 Instruction Type:Patient Education Patient Instructions Indication:Non-smoker Start:15-Mar-2022 Instruction Type:Provider Instructions for Treatment How to Access Health Informa tion Online using Patient Portal and [employer] Apps Indication:Non-smoker Start:15-Mar-2022 Instruction Type:Patient Education Patient Instructions Indication:Morbid obesity Start:08-Mar-2022 Instruction Type:Provider Instructions for Treatment How to Access Health Informa tion Online using Patient Portal and [employer] Apps Indication:Morbid obesity Start:08-Mar-2022 Instruction Type:Patient Education Patient Instructions Indication:Non-smoker Start:22-Feb-2022 Instruction Type:Provider Instructions for Treatment How to Access Health Informa tion Online using Patient Portal and [employer] Apps Indication:Non-smoker Start:22-Feb-2022 Instruction Type:Patient Education Patient Instructions Indication:Non-smoker Start:05-Feb-2022 Instruction Type:Provider Instructions for Treatment How to Access Health Informa tion Online using Patient Portal and [employer] Apps Indication:Non-smoker Start:05-Feb-2022 Instruction Type:Patient Education Patient Instructions Indication:Impaired fasting glucose Start:24-Jan-2022 Instruction Type:Provider Instructions for Treatment How to Access Health Informa tion Online using Patient Portal and [employer] Apps Indication:Impaired fasting glucose Start:24-Jan-2022 Instruction Type:Patient Education Patient Instructions Indication:BMI 39.0-39.9,adult Start:24-Oct-2021 Instruction Type:Provider Instructions for Treatment How to Access Health Informa tion Online using Patient Portal and [employer] Apps Indication:BMI 39.0-39.9,adult Start:24-Oct-2021 Instruction Type:Patient Education Patient Instructions Indication:BMI 39.0-39.9,adult Start:30-May-2021 Instruction Type:Provider Instructions for Treatment How to Access Health Informa tion Online using Patient Portal and [employer] Apps Indication:BMI 39.0-39.9,adult Start:30-May-2021 Instruction Type:Patient Education Patient Instructions Indication:Encounter for screening for malignant neoplasm of colon (Renamed from Special screening for malignant neoplasms, colon) Start:25-Apr-2021 Instruction Type:Provider Instructions for Treatment How to Access Health Informa tion Online using Patient Portal and [employer] Apps Indication:Non-smoker Start:25-Apr-2021 Instruction Type:Patient Education Patient Instructions Indication:Non-smoker Start:17-Jan-2021 Instruction Type:Provider Instructions for Treatment How to Access Health Informa tion Online using Patient Portal and [employer] Apps Indication:Non-smoker Start:17-Jan-2021 Instruction Type:Patient Education Patient Instructions Indication:CKD stage G3b/A1, GFR 30-44 and albumin creatinine ratio <30 mg/g Start:16-Dec-2020 Instruction Type:Provider Instructions for Treatment How to Access Health Informa tion Online using Patient Portal and [employer] Apps Indication:JESUS (obstructive sleep apnea) Start:16-Dec-2020 Instruction Type:Patient Education Patient Instructions Indication:Non-smoker Start:09-Dec-2020 Instruction Type:Provider Instructions for Treatment How to Access Health Informa tion Online using Patient Portal and [employer] Apps Indication:HTN (hypertension), benign Start:09-Dec-2020 Instruction Type:Patient Education How to access health informa tion online Indication:BMI 39.0-39.9,adult Start:01-Oct-2019 Instruction Type:Patient Education How to access health informa tion online - Detail Indication:BMI 39.0-39.9,adult Start:01-Oct-2019 Instruction Type:Patient Education Patient Instructions Indication:BMI 39.0-39.9,adult Start:01-Oct-2019 Instruction Type:Provider Instructions for Treatment How to access health informa tion online Indication:BMI 40.0-44.9, adult Start:31-Aug-2019 Instruction Type:Patient Education How to access health informa tion online - Detail Indication:BMI 40.0-44.9, adult Start:31-Aug-2019 Instruction Type:Patient Education Patient Instructions Indication:BMI 40.0-44.9, adult Start:31-Aug-2019 Instruction Type:Provider Instructions for Treatment How to access health informa tion online - Detail Indication:BMI 40.0-44.9, adult Start:27-Jul-2019 Instruction Type:Patient Education Patient Instructions Indication:BMI 40.0-44.9, adult Start:27-Jul-2019 Instruction Type:Provider Instructions for Treatment How to access health informa tion online Indication:Non-smoker Start:01-Dec-2018 Instruction Type:Patient Education How to access health informa tion online - Detail Indication:Non-smoker Start:01-Dec-2018 Instruction Type:Patient Education Patient Instructions Indication:Non-smoker Start:01-Dec-2018 Instruction Type:Provider Instructions for Treatment How to access health informa tion online Indication:BMI 39.0-39.9,adult Start:05-Nov-2018 Instruction Type:Patient Education How to access health informa tion online - Detail Indication:BMI 39.0-39.9,adult Start:05-Nov-2018 Instruction Type:Patient Education Patient Instructions Indication:BMI 39.0-39.9,adult Start:05-Nov-2018 Instruction Type:Provider Instructions for Treatment How to access health informa tion online Indication:Non-smoker Start:29-Oct-2018 Instruction Type:Patient Education How to access health informa tion online - Detail Indication:Non-smoker Start:29-Oct-2018 Instruction Type:Patient Education Patient Instructions Indication:Non-smoker Start:29-Oct-2018 Instruction Type:Provider Instructions for Treatment How to access health informa tion online - Detail Indication:Non-smoker Start:08-Oct-2018 Instruction Type:Patient Education How to access health informa tion online Indication:Non-smoker Start:08-Oct-2018 Instruction Type:Patient Education How to access health informa tion online Indication:Fever and chills Start:06-Aug-2017 Instruction Type:Patient Education How to access health informa tion online - Detail Indication:Fever and chills Start:06-Aug-2017 Instruction Type:Patient Education Patient Instructions Indication:Fever and chills Start:06-Aug-2017 Instruction Type:Provider Instructions for Treatment How to access health informa tion online Indication:Non-smoker Start:20-Sep-2016 Instruction Type:Patient Education How to access health informa tion online - Detail Indication:Non-smoker Start:20-Sep-2016 Instruction Type:Patient Education Patient Instructions Indication:Non-smoker Start:20-Sep-2016 Instruction Type:Provider Instructions for Treatment How to access health informa tion online Indication:Sinusitis Start:14-Apr-2015 Instruction Type:Patient Education How to access health informa tion online - Detail Indication:Sinusitis Start:14-Apr-2015 Instruction Type:Patient Education Patient Instructions Indication:Sinusitis Start:14-Apr-2015 Instruction Type:Provider Instructions for Treatment How to access health informa tion online Indication:Wheezing Start:19-Jan-2015 Instruction Type:Patient Education How to access health informa tion online - Detail Indication:Wheezing Start:19-Jan-2015 Instruction Type:Patient Education Patient Instructions Indication:Wheezing Start:19-Jan-2015 Instruction Type:Provider Instructions for Treatment Patient Instructions Indication:Red eye Start:05-Oct-2013 Instruction Type:Provider Instructions for Treatment Patient Instructions Indication:Knee Pain (Renamed from Arthralgia of knee) Start:29-Sep-2013 Instruction Type:Provider Instructions for Treatment Patient Instructions Indication:Obesity Start:01-Sep-2013 Instruction Type:Provider Instructions for Treatment Patient Instructions Indication:Flank pain Start:06-Jul-2013 Instruction Type:Provider Instructions for Treatment Patient Instructions Indication:Hematuria Start:01-Jun-2013 Instruction Type:Provider Instructions for Treatment Patient Instructions Indication:Dysthymic Start:26-May-2012 Instruction Type:Provider Instructions for Treatment [facility]; [facility] Work Phone: Instructions* Name Dates Details Patient Instructions Indication:Non-smoker Start:25-Mar-2023 Instruction Type:Provider Instructions for Treatment How to Access Health Informa tion Online using Patient Portal and [employer] Apps Indication:Non-smoker Start:25-Mar-2023 Instruction Type:Patient Education Patient Instructions Indication:Non-smoker Start:25-Feb-2023 Instruction Type:Provider Instructions for Treatment How to Access Health Informa tion Online using Patient Portal and [employer] Apps Indication:Non-smoker Start:25-Feb-2023 Instruction Type:Patient Education Patient Instructions Indication:BMI 40.0-44.9, adult Start:25-Oct-2022 Instruction Type:Provider Instructions for Treatment How to Access Health Informa tion Online using Patient Portal and [employer] Apps Indication:BMI 40.0-44.9, adult Start:25-Oct-2022 Instruction Type:Patient Education Patient Instructions Indication:Non-smoker Start:15-Mar-2022 Instruction Type:Provider Instructions for Treatment How to Access Health Informa tion Online using Patient Portal and [employer] Apps Indication:Non-smoker Start:15-Mar-2022 Instruction Type:Patient Education Patient Instructions Indication:Morbid obesity Start:08-Mar-2022 Instruction Type:Provider Instructions for Treatment How to Access Health Informa tion Online using Patient Portal and [employer] Apps Indication:Morbid obesity Start:08-Mar-2022 Instruction Type:Patient Education Patient Instructions Indication:Non-smoker Start:22-Feb-2022 Instruction Type:Provider Instructions for Treatment How to Access Health Informa tion Online using Patient Portal and [employer] Apps Indication:Non-smoker Start:22-Feb-2022 Instruction Type:Patient Education Patient Instructions Indication:Non-smoker Start:05-Feb-2022 Instruction Type:Provider Instructions for Treatment How to Access Health Informa tion Online using Patient Portal and [employer] Apps Indication:Non-smoker Start:05-Feb-2022 Instruction Type:Patient Education Patient Instructions Indication:Impaired fasting glucose Start:24-Jan-2022 Instruction Type:Provider Instructions for Treatment How to Access Health Informa tion Online using Patient Portal and [employer] Apps Indication:Impaired fasting glucose Start:24-Jan-2022 Instruction Type:Patient Education Patient Instructions Indication:BMI 39.0-39.9,adult Start:24-Oct-2021 Instruction Type:Provider Instructions for Treatment How to Access Health Informa tion Online using Patient Portal and [employer] Apps Indication:BMI 39.0-39.9,adult Start:24-Oct-2021 Instruction Type:Patient Education Patient Instructions Indication:BMI 39.0-39.9,adult Start:30-May-2021 Instruction Type:Provider Instructions for Treatment How to Access Health Informa tion Online using Patient Portal and [employer] Apps Indication:BMI 39.0-39.9,adult Start:30-May-2021 Instruction Type:Patient Education Patient Instructions Indication:Encounter for screening for malignant neoplasm of colon (Renamed from Special screening for malignant neoplasms, colon) Start:25-Apr-2021 Instruction Type:Provider Instructions for Treatment How to Access Health Informa tion Online using Patient Portal and [employer] Apps Indication:Non-smoker Start:25-Apr-2021 Instruction Type:Patient Education Patient Instructions Indication:Non-smoker Start:17-Jan-2021 Instruction Type:Provider Instructions for Treatment How to Access Health Informa tion Online using Patient Portal and [employer] Apps Indication:Non-smoker Start:17-Jan-2021 Instruction Type:Patient Education Patient Instructions Indication:CKD stage G3b/A1, GFR 30-44 and albumin creatinine ratio <30 mg/g Start:16-Dec-2020 Instruction Type:Provider Instructions for Treatment How to Access Health Informa tion Online using Patient Portal and [employer] Apps Indication:JESUS (obstructive sleep apnea) Start:16-Dec-2020 Instruction Type:Patient Education Patient Instructions Indication:Non-smoker Start:09-Dec-2020 Instruction Type:Provider Instructions for Treatment How to Access Health Informa tion Online using Patient Portal and [employer] Apps Indication:HTN (hypertension), benign Start:09-Dec-2020 Instruction Type:Patient Education How to access health informa tion online Indication:BMI 39.0-39.9,adult Start:01-Oct-2019 Instruction Type:Patient Education How to access health informa tion online - Detail Indication:BMI 39.0-39.9,adult Start:01-Oct-2019 Instruction Type:Patient Education Patient Instructions Indication:BMI 39.0-39.9,adult Start:01-Oct-2019 Instruction Type:Provider Instructions for Treatment How to access health informa tion online Indication:BMI 40.0-44.9, adult Start:31-Aug-2019 Instruction Type:Patient Education How to access health informa tion online - Detail Indication:BMI 40.0-44.9, adult Start:31-Aug-2019 Instruction Type:Patient Education Patient Instructions Indication:BMI 40.0-44.9, adult Start:31-Aug-2019 Instruction Type:Provider Instructions for Treatment How to access health informa tion online - Detail Indication:BMI 40.0-44.9, adult Start:27-Jul-2019 Instruction Type:Patient Education Patient Instructions Indication:BMI 40.0-44.9, adult Start:27-Jul-2019 Instruction Type:Provider Instructions for Treatment How to access health informa tion online Indication:Non-smoker Start:01-Dec-2018 Instruction Type:Patient Education How to access health informa tion online - Detail Indication:Non-smoker Start:01-Dec-2018 Instruction Type:Patient Education Patient Instructions Indication:Non-smoker Start:01-Dec-2018 Instruction Type:Provider Instructions for Treatment How to access health informa tion online Indication:BMI 39.0-39.9,adult Start:05-Nov-2018 Instruction Type:Patient Education How to access health informa tion online - Detail Indication:BMI 39.0-39.9,adult Start:05-Nov-2018 Instruction Type:Patient Education Patient Instructions Indication:BMI 39.0-39.9,adult Start:05-Nov-2018 Instruction Type:Provider Instructions for Treatment How to access health informa tion online Indication:Non-smoker Start:29-Oct-2018 Instruction Type:Patient Education How to access health informa tion online - Detail Indication:Non-smoker Start:29-Oct-2018 Instruction Type:Patient Education Patient Instructions Indication:Non-smoker Start:29-Oct-2018 Instruction Type:Provider Instructions for Treatment How to access health informa tion online - Detail Indication:Non-smoker Start:08-Oct-2018 Instruction Type:Patient Education How to access health informa tion online Indication:Non-smoker Start:08-Oct-2018 Instruction Type:Patient Education How to access health informa tion online Indication:Fever and chills Start:06-Aug-2017 Instruction Type:Patient Education How to access health informa tion online - Detail Indication:Fever and chills Start:06-Aug-2017 Instruction Type:Patient Education Patient Instructions Indication:Fever and chills Start:06-Aug-2017 Instruction Type:Provider Instructions for Treatment How to access health informa tion online Indication:Non-smoker Start:20-Sep-2016 Instruction Type:Patient Education How to access health informa tion online - Detail Indication:Non-smoker Start:20-Sep-2016 Instruction Type:Patient Education Patient Instructions Indication:Non-smoker Start:20-Sep-2016 Instruction Type:Provider Instructions for Treatment How to access health informa tion online Indication:Sinusitis Start:14-Apr-2015 Instruction Type:Patient Education How to access health informa tion online - Detail Indication:Sinusitis Start:14-Apr-2015 Instruction Type:Patient Education Patient Instructions Indication:Sinusitis Start:14-Apr-2015 Instruction Type:Provider Instructions for Treatment How to access health informa tion online Indication:Wheezing Start:19-Jan-2015 Instruction Type:Patient Education How to access health informa tion online - Detail Indication:Wheezing Start:19-Jan-2015 Instruction Type:Patient Education Patient Instructions Indication:Wheezing Start:19-Jan-2015 Instruction Type:Provider Instructions for Treatment Patient Instructions Indication:Red eye Start:05-Oct-2013 Instruction Type:Provider Instructions for Treatment Patient Instructions Indication:Knee Pain (Renamed from Arthralgia of knee) Start:29-Sep-2013 Instruction Type:Provider Instructions for Treatment Patient Instructions Indication:Obesity Start:01-Sep-2013 Instruction Type:Provider Instructions for Treatment Patient Instructions Indication:Flank pain Start:06-Jul-2013 Instruction Type:Provider Instructions for Treatment Patient Instructions Indication:Hematuria Start:01-Jun-2013 Instruction Type:Provider Instructions for Treatment Patient Instructions Indication:Dysthymic Start:26-May-2012 Instruction Type:Provider Instructions for Treatment [facility]; [facility] Work Phone: Instructions* Name Dates Details How to Access Health Informa tion Online using Patient Portal and [employer] Apps Indication:Non-smoker Start:12-Apr-2023 Instruction Type:Patient Education Patient Instructions Indication:Non-smoker Start:12-Apr-2023 Instruction Type:Provider Instructions for Treatment Patient Instructions Indication:Non-smoker Start:25-Mar-2023 Instruction Type:Provider Instructions for Treatment How to Access Health Informa tion Online using Patient Portal and [employer] Apps Indication:Non-smoker Start:25-Mar-2023 Instruction Type:Patient Education Patient Instructions Indication:Non-smoker Start:25-Feb-2023 Instruction Type:Provider Instructions for Treatment How to Access Health Informa tion Online using Patient Portal and [employer] Apps Indication:Non-smoker Start:25-Feb-2023 Instruction Type:Patient Education Patient Instructions Indication:BMI 40.0-44.9, adult Start:25-Oct-2022 Instruction Type:Provider Instructions for Treatment How to Access Health Informa tion Online using Patient Portal and [employer] Apps Indication:BMI 40.0-44.9, adult Start:25-Oct-2022 Instruction Type:Patient Education Patient Instructions Indication:Non-smoker Start:15-Mar-2022 Instruction Type:Provider Instructions for Treatment How to Access Health Informa tion Online using Patient Portal and [employer] Apps Indication:Non-smoker Start:15-Mar-2022 Instruction Type:Patient Education Patient Instructions Indication:Morbid obesity Start:08-Mar-2022 Instruction Type:Provider Instructions for Treatment How to Access Health Informa tion Online using Patient Portal and [employer] Apps Indication:Morbid obesity Start:08-Mar-2022 Instruction Type:Patient Education Patient Instructions Indication:Non-smoker Start:22-Feb-2022 Instruction Type:Provider Instructions for Treatment How to Access Health Informa tion Online using Patient Portal and [employer] Apps Indication:Non-smoker Start:22-Feb-2022 Instruction Type:Patient Education Patient Instructions Indication:Non-smoker Start:05-Feb-2022 Instruction Type:Provider Instructions for Treatment How to Access Health Informa tion Online using Patient Portal and [employer] Apps Indication:Non-smoker Start:05-Feb-2022 Instruction Type:Patient Education Patient Instructions Indication:Impaired fasting glucose Start:24-Jan-2022 Instruction Type:Provider Instructions for Treatment How to Access Health Informa tion Online using Patient Portal and [employer] Indication:Impaired fasting glucose Start:24-Jan-2022 Instruction Type:Patient Education Patient Instructions Indication:BMI 39.0-39.9,adult Start:24-Oct-2021 Instruction Type:Provider Instructions for Treatment How to Access Health Informa tion Online using Patient Portal and [employer] Apps Indication:BMI 39.0-39.9,adult Start:24-Oct-2021 Instruction Type:Patient Education Patient Instructions Indication:BMI 39.0-39.9,adult Start:30-May-2021 Instruction Type:Provider Instructions for Treatment How to Access Health Informa tion Online using Patient Portal and [employer] Apps Indication:BMI 39.0-39.9,adult Start:30-May-2021 Instruction Type:Patient Education Patient Instructions Indication:Encounter for screening for malignant neoplasm of colon (Renamed from Special screening for malignant neoplasms, colon) Start:25-Apr-2021 Instruction Type:Provider Instructions for Treatment How to Access Health Informa tion Online using Patient Portal and [employer] Apps Indication:Non-smoker Start:25-Apr-2021 Instruction Type:Patient Education Patient Instructions Indication:Non-smoker Start:17-Jan-2021 Instruction Type:Provider Instructions for Treatment How to Access Health Informa tion Online using Patient Portal and [employer] Apps Indication:Non-smoker Start:17-Jan-2021 Instruction Type:Patient Education Patient Instructions Indication:CKD stage G3b/A1, GFR 30-44 and albumin creatinine ratio <30 mg/g Start:16-Dec-2020 Instruction Type:Provider Instructions for Treatment How to Access Health Informa tion Online using Patient Portal and [employer] Apps Indication:JESUS (obstructive sleep apnea) Start:16-Dec-2020 Instruction Type:Patient Education Patient Instructions Indication:Non-smoker Start:09-Dec-2020 Instruction Type:Provider Instructions for Treatment How to Access Health Informa tion Online using Patient Portal and [employer] Apps Indication:HTN (hypertension), benign Start:09-Dec-2020 Instruction Type:Patient Education How to access health informa tion online Indication:BMI 39.0-39.9,adult Start:01-Oct-2019 Instruction Type:Patient Education How to access health informa tion online - Detail Indication:BMI 39.0-39.9,adult Start:01-Oct-2019 Instruction Type:Patient Education Patient Instructions Indication:BMI 39.0-39.9,adult Start:01-Oct-2019 Instruction Type:Provider Instructions for Treatment How to access health informa tion online Indication:BMI 40.0-44.9, adult Start:31-Aug-2019 Instruction Type:Patient Education How to access health informa tion online - Detail Indication:BMI 40.0-44.9, adult Start:31-Aug-2019 Instruction Type:Patient Education Patient Instructions Indication:BMI 40.0-44.9, adult Start:31-Aug-2019 Instruction Type:Provider Instructions for Treatment How to access health informa tion online - Detail Indication:BMI 40.0-44.9, adult Start:27-Jul-2019 Instruction Type:Patient Education Patient Instructions Indication:BMI 40.0-44.9, adult Start:27-Jul-2019 Instruction Type:Provider Instructions for Treatment How to access health informa tion online Indication:Non-smoker Start:01-Dec-2018 Instruction Type:Patient Education How to access health informa tion online - Detail Indication:Non-smoker Start:01-Dec-2018 Instruction Type:Patient Education Patient Instructions Indication:Non-smoker Start:01-Dec-2018 Instruction Type:Provider Instructions for Treatment How to access health informa tion online Indication:BMI 39.0-39.9,adult Start:05-Nov-2018 Instruction Type:Patient Education How to access health informa tion online - Detail Indication:BMI 39.0-39.9,adult Start:05-Nov-2018 Instruction Type:Patient Education Patient Instructions Indication:BMI 39.0-39.9,adult Start:05-Nov-2018 Instruction Type:Provider Instructions for Treatment How to access health informa tion online Indication:Non-smoker Start:29-Oct-2018 Instruction Type:Patient Education How to access health informa tion online - Detail Indication:Non-smoker Start:29-Oct-2018 Instruction Type:Patient Education Patient Instructions Indication:Non-smoker Start:29-Oct-2018 Instruction Type:Provider Instructions for Treatment How to access health informa tion online - Detail Indication:Non-smoker Start:08-Oct-2018 Instruction Type:Patient Education How to access health informa tion online Indication:Non-smoker Start:08-Oct-2018 Instruction Type:Patient Education How to access health informa tion online Indication:Fever and chills Start:06-Aug-2017 Instruction Type:Patient Education How to access health informa tion online - Detail Indication:Fever and chills Start:06-Aug-2017 Instruction Type:Patient Education Patient Instructions Indication:Fever and chills Start:06-Aug-2017 Instruction Type:Provider Instructions for Treatment How to access health informa tion online Indication:Non-smoker Start:20-Sep-2016 Instruction Type:Patient Education How to access health informa tion online - Detail Indication:Non-smoker Start:20-Sep-2016 Instruction Type:Patient Education Patient Instructions Indication:Non-smoker Start:20-Sep-2016 Instruction Type:Provider Instructions for Treatment How to access health informa tion online Indication:Sinusitis Start:14-Apr-2015 Instruction Type:Patient Education How to access health informa tion online - Detail Indication:Sinusitis Start:14-Apr-2015 Instruction Type:Patient Education Patient Instructions Indication:Sinusitis Start:14-Apr-2015 Instruction Type:Provider Instructions for Treatment How to access health informa tion online Indication:Wheezing Start:19-Jan-2015 Instruction Type:Patient Education How to access health informa tion online - Detail Indication:Wheezing Start:19-Jan-2015 Instruction Type:Patient Education Patient Instructions Indication:Wheezing Start:19-Jan-2015 Instruction Type:Provider Instructions for Treatment Patient Instructions Indication:Red eye Start:05-Oct-2013 Instruction Type:Provider Instructions for Treatment Patient Instructions Indication:Knee Pain (Renamed from Arthralgia of knee) Start:29-Sep-2013 Instruction Type:Provider Instructions for Treatment Patient Instructions Indication:Obesity Start:01-Sep-2013 Instruction Type:Provider Instructions for Treatment Patient Instructions Indication:Flank pain Start:06-Jul-2013 Instruction Type:Provider Instructions for Treatment Patient Instructions Indication:Hematuria Start:01-Jun-2013 Instruction Type:Provider Instructions for Treatment Patient Instructions Indication:Dysthymic Start:26-May-2012 Instruction Type:Provider Instructions for Treatment [facility]; [facility] Work Phone: Instructions* Name Dates Details How to Access Health Informa tion Online using Patient Portal and [employer] Apps Indication:Non-smoker Start:29-Apr-2023 Instruction Type:Patient Education Patient Instructions Indication:Non-smoker Start:29-Apr-2023 Instruction Type:Provider Instructions for Treatment How to Access Health Informa tion Online using Patient Portal and [employer] Indication:Non-smoker Start:12-Apr-2023 Instruction Type:Patient Education Patient Instructions Indication:Non-smoker Start:12-Apr-2023 Instruction Type:Provider Instructions for Treatment Patient Instructions Indication:Non-smoker Start:25-Mar-2023 Instruction Type:Provider Instructions for Treatment How to Access Health Informa tion Online using Patient Portal and [employer] Indication:Non-smoker Start:25-Mar-2023 Instruction Type:Patient Education Patient Instructions Indication:Non-smoker Start:25-Feb-2023 Instruction Type:Provider Instructions for Treatment How to Access Health Informa tion Online using Patient Portal and [employer] Indication:Non-smoker Start:25-Feb-2023 Instruction Type:Patient Education Patient Instructions Indication:BMI 40.0-44.9, adult Start:25-Oct-2022 Instruction Type:Provider Instructions for Treatment How to Access Health Informa tion Online using Patient Portal and [employer] Apps Indication:BMI 40.0-44.9, adult Start:25-Oct-2022 Instruction Type:Patient Education Patient Instructions Indication:Non-smoker Start:15-Mar-2022 Instruction Type:Provider Instructions for Treatment How to Access Health Informa tion Online using Patient Portal and [employer] Indication:Non-smoker Start:15-Mar-2022 Instruction Type:Patient Education Patient Instructions Indication:Morbid obesity Start:08-Mar-2022 Instruction Type:Provider Instructions for Treatment How to Access Health Informa tion Online using Patient Portal and [employer] Indication:Morbid obesity Start:08-Mar-2022 Instruction Type:Patient Education Patient Instructions Indication:Non-smoker Start:22-Feb-2022 Instruction Type:Provider Instructions for Treatment How to Access Health Informa tion Online using Patient Portal and [employer] Apps Indication:Non-smoker Start:22-Feb-2022 Instruction Type:Patient Education Patient Instructions Indication:Non-smoker Start:05-Feb-2022 Instruction Type:Provider Instructions for Treatment How to Access Health Informa tion Online using Patient Portal and [employer] Indication:Non-smoker Start:05-Feb-2022 Instruction Type:Patient Education Patient Instructions Indication:Impaired fasting glucose Start:24-Jan-2022 Instruction Type:Provider Instructions for Treatment How to Access Health Informa tion Online using Patient Portal and [employer] Apps Indication:Impaired fasting glucose Start:24-Jan-2022 Instruction Type:Patient Education Patient Instructions Indication:BMI 39.0-39.9,adult Start:24-Oct-2021 Instruction Type:Provider Instructions for Treatment How to Access Health Informa tion Online using Patient Portal and [employer] Indication:BMI 39.0-39.9,adult Start:24-Oct-2021 Instruction Type:Patient Education Patient Instructions Indication:BMI 39.0-39.9,adult Start:30-May-2021 Instruction Type:Provider Instructions for Treatment How to Access Health Informa tion Online using Patient Portal and [employer] Apps Indication:BMI 39.0-39.9,adult Start:30-May-2021 Instruction Type:Patient Education Patient Instructions Indication:Encounter for screening for malignant neoplasm of colon (Renamed from Special screening for malignant neoplasms, colon) Start:25-Apr-2021 Instruction Type:Provider Instructions for Treatment How to Access Health Informa tion Online using Patient Portal and [employer] Apps Indication:Non-smoker Start:25-Apr-2021 Instruction Type:Patient Education Patient Instructions Indication:Non-smoker Start:17-Jan-2021 Instruction Type:Provider Instructions for Treatment How to Access Health Informa tion Online using Patient Portal and [employer] Indication:Non-smoker Start:17-Jan-2021 Instruction Type:Patient Education Patient Instructions Indication:CKD stage G3b/A1, GFR 30-44 and albumin creatinine ratio <30 mg/g Start:16-Dec-2020 Instruction Type:Provider Instructions for Treatment How to Access Health Informa tion Online using Patient Portal and [employer] Apps Indication:JESUS (obstructive sleep apnea) Start:16-Dec-2020 Instruction Type:Patient Education Patient Instructions Indication:Non-smoker Start:09-Dec-2020 Instruction Type:Provider Instructions for Treatment How to Access Health Informa tion Online using Patient Portal and [employer] Apps Indication:HTN (hypertension), benign Start:09-Dec-2020 Instruction Type:Patient Education How to access health informa tion online Indication:BMI 39.0-39.9,adult Start:01-Oct-2019 Instruction Type:Patient Education How to access health informa tion online - Detail Indication:BMI 39.0-39.9,adult Start:01-Oct-2019 Instruction Type:Patient Education Patient Instructions Indication:BMI 39.0-39.9,adult Start:01-Oct-2019 Instruction Type:Provider Instructions for Treatment How to access health informa tion online Indication:BMI 40.0-44.9, adult Start:31-Aug-2019 Instruction Type:Patient Education How to access health informa tion online - Detail Indication:BMI 40.0-44.9, adult Start:31-Aug-2019 Instruction Type:Patient Education Patient Instructions Indication:BMI 40.0-44.9, adult Start:31-Aug-2019 Instruction Type:Provider Instructions for Treatment How to access health informa tion online - Detail Indication:BMI 40.0-44.9, adult Start:27-Jul-2019 Instruction Type:Patient Education Patient Instructions Indication:BMI 40.0-44.9, adult Start:27-Jul-2019 Instruction Type:Provider Instructions for Treatment How to access health informa tion online Indication:Non-smoker Start:01-Dec-2018 Instruction Type:Patient Education How to access health informa tion online - Detail Indication:Non-smoker Start:01-Dec-2018 Instruction Type:Patient Education Patient Instructions Indication:Non-smoker Start:01-Dec-2018 Instruction Type:Provider Instructions for Treatment How to access health informa tion online Indication:BMI 39.0-39.9,adult Start:05-Nov-2018 Instruction Type:Patient Education How to access health informa tion online - Detail Indication:BMI 39.0-39.9,adult Start:05-Nov-2018 Instruction Type:Patient Education Patient Instructions Indication:BMI 39.0-39.9,adult Start:05-Nov-2018 Instruction Type:Provider Instructions for Treatment How to access health informa tion online Indication:Non-smoker Start:29-Oct-2018 Instruction Type:Patient Education How to access health informa tion online - Detail Indication:Non-smoker Start:29-Oct-2018 Instruction Type:Patient Education Patient Instructions Indication:Non-smoker Start:29-Oct-2018 Instruction Type:Provider Instructions for Treatment How to access health informa tion online - Detail Indication:Non-smoker Start:08-Oct-2018 Instruction Type:Patient Education How to access health informa tion online Indication:Non-smoker Start:08-Oct-2018 Instruction Type:Patient Education How to access health informa tion online Indication:Fever and chills Start:06-Aug-2017 Instruction Type:Patient Education How to access health informa tion online - Detail Indication:Fever and chills Start:06-Aug-2017 Instruction Type:Patient Education Patient Instructions Indication:Fever and chills Start:06-Aug-2017 Instruction Type:Provider Instructions for Treatment How to access health informa tion online Indication:Non-smoker Start:20-Sep-2016 Instruction Type:Patient Education How to access health informa tion online - Detail Indication:Non-smoker Start:20-Sep-2016 Instruction Type:Patient Education Patient Instructions Indication:Non-smoker Start:20-Sep-2016 Instruction Type:Provider Instructions for Treatment How to access health informa tion online Indication:Sinusitis Start:14-Apr-2015 Instruction Type:Patient Education How to access health informa tion online - Detail Indication:Sinusitis Start:14-Apr-2015 Instruction Type:Patient Education Patient Instructions Indication:Sinusitis Start:14-Apr-2015 Instruction Type:Provider Instructions for Treatment How to access health informa tion online Indication:Wheezing Start:19-Jan-2015 Instruction Type:Patient Education How to access health informa tion online - Detail Indication:Wheezing Start:19-Jan-2015 Instruction Type:Patient Education Patient Instructions Indication:Wheezing Start:19-Jan-2015 Instruction Type:Provider Instructions for Treatment Patient Instructions Indication:Red eye Start:05-Oct-2013 Instruction Type:Provider Instructions for Treatment Patient Instructions Indication:Knee Pain (Renamed from Arthralgia of knee) Start:29-Sep-2013 Instruction Type:Provider Instructions for Treatment Patient Instructions Indication:Obesity Start:01-Sep-2013 Instruction Type:Provider Instructions for Treatment Patient Instructions Indication:Flank pain Start:06-Jul-2013 Instruction Type:Provider Instructions for Treatment Patient Instructions Indication:Hematuria Start:01-Jun-2013 Instruction Type:Provider Instructions for Treatment Patient Instructions Indication:Dysthymic Start:26-May-2012 Instruction Type:Provider Instructions for Treatment [facility]; [facility] Work Phone: Instructions* Name Dates Details How to Access Health Informa tion Online using Patient Portal and [employer] Indication:Non-smoker Start:29-Apr-2023 Instruction Type:Patient Education Patient Instructions Indication:Non-smoker Start:29-Apr-2023 Instruction Type:Provider Instructions for Treatment How to Access Health Informa tion Online using Patient Portal and [employer] Indication:Non-smoker Start:12-Apr-2023 Instruction Type:Patient Education Patient Instructions Indication:Non-smoker Start:12-Apr-2023 Instruction Type:Provider Instructions for Treatment Patient Instructions Indication:Non-smoker Start:25-Mar-2023 Instruction Type:Provider Instructions for Treatment How to Access Health Informa tion Online using Patient Portal and [employer] Indication:Non-smoker Start:25-Mar-2023 Instruction Type:Patient Education Patient Instructions Indication:Non-smoker Start:25-Feb-2023 Instruction Type:Provider Instructions for Treatment How to Access Health Informa tion Online using Patient Portal and [employer] Indication:Non-smoker Start:25-Feb-2023 Instruction Type:Patient Education Patient Instructions Indication:BMI 40.0-44.9, adult Start:25-Oct-2022 Instruction Type:Provider Instructions for Treatment How to Access Health Informa tion Online using Patient Portal and [employer] Indication:BMI 40.0-44.9, adult Start:25-Oct-2022 Instruction Type:Patient Education Patient Instructions Indication:Non-smoker Start:15-Mar-2022 Instruction Type:Provider Instructions for Treatment How to Access Health Informa tion Online using Patient Portal and [employer] Indication:Non-smoker Start:15-Mar-2022 Instruction Type:Patient Education Patient Instructions Indication:Morbid obesity Start:08-Mar-2022 Instruction Type:Provider Instructions for Treatment How to Access Health Informa tion Online using Patient Portal and [employer] Indication:Morbid obesity Start:08-Mar-2022 Instruction Type:Patient Education Patient Instructions Indication:Non-smoker Start:22-Feb-2022 Instruction Type:Provider Instructions for Treatment How to Access Health Informa tion Online using Patient Portal and [employer] Indication:Non-smoker Start:22-Feb-2022 Instruction Type:Patient Education Patient Instructions Indication:Non-smoker Start:05-Feb-2022 Instruction Type:Provider Instructions for Treatment How to Access Health Informa tion Online using Patient Portal and [employer] Indication:Non-smoker Start:05-Feb-2022 Instruction Type:Patient Education Patient Instructions Indication:Impaired fasting glucose Start:24-Jan-2022 Instruction Type:Provider Instructions for Treatment How to Access Health Informa tion Online using Patient Portal and [employer] Indication:Impaired fasting glucose Start:24-Jan-2022 Instruction Type:Patient Education Patient Instructions Indication:BMI 39.0-39.9,adult Start:24-Oct-2021 Instruction Type:Provider Instructions for Treatment How to Access Health Informa tion Online using Patient Portal and [employer] Indication:BMI 39.0-39.9,adult Start:24-Oct-2021 Instruction Type:Patient Education Patient Instructions Indication:BMI 39.0-39.9,adult Start:30-May-2021 Instruction Type:Provider Instructions for Treatment How to Access Health Informa tion Online using Patient Portal and [employer] Indication:BMI 39.0-39.9,adult Start:30-May-2021 Instruction Type:Patient Education Patient Instructions Indication:Encounter for screening for malignant neoplasm of colon (Renamed from Special screening for malignant neoplasms, colon) Start:25-Apr-2021 Instruction Type:Provider Instructions for Treatment How to Access Health Informa tion Online using Patient Portal and [employer] Indication:Non-smoker Start:25-Apr-2021 Instruction Type:Patient Education Patient Instructions Indication:Non-smoker Start:17-Jan-2021 Instruction Type:Provider Instructions for Treatment How to Access Health Informa tion Online using Patient Portal and [employer] Indication:Non-smoker Start:17-Jan-2021 Instruction Type:Patient Education Patient Instructions Indication:CKD stage G3b/A1, GFR 30-44 and albumin creatinine ratio <30 mg/g Start:16-Dec-2020 Instruction Type:Provider Instructions for Treatment How to Access Health Informa tion Online using Patient Portal and [employer] Indication:JESUS (obstructive sleep apnea) Start:16-Dec-2020 Instruction Type:Patient Education Patient Instructions Indication:Non-smoker Start:09-Dec-2020 Instruction Type:Provider Instructions for Treatment How to Access Health Informa tion Online using Patient Portal and [employer] Indication:HTN (hypertension), benign Start:09-Dec-2020 Instruction Type:Patient Education How to access health informa tion online Indication:BMI 39.0-39.9,adult Start:01-Oct-2019 Instruction Type:Patient Education How to access health informa tion online - Detail Indication:BMI 39.0-39.9,adult Start:01-Oct-2019 Instruction Type:Patient Education Patient Instructions Indication:BMI 39.0-39.9,adult Start:01-Oct-2019 Instruction Type:Provider Instructions for Treatment How to access health informa tion online Indication:BMI 40.0-44.9, adult Start:31-Aug-2019 Instruction Type:Patient Education How to access health informa tion online - Detail Indication:BMI 40.0-44.9, adult Start:31-Aug-2019 Instruction Type:Patient Education Patient Instructions Indication:BMI 40.0-44.9, adult Start:31-Aug-2019 Instruction Type:Provider Instructions for Treatment How to access health informa tion online - Detail Indication:BMI 40.0-44.9, adult Start:27-Jul-2019 Instruction Type:Patient Education Patient Instructions Indication:BMI 40.0-44.9, adult Start:27-Jul-2019 Instruction Type:Provider Instructions for Treatment How to access health informa tion online Indication:Non-smoker Start:01-Dec-2018 Instruction Type:Patient Education How to access health informa tion online - Detail Indication:Non-smoker Start:01-Dec-2018 Instruction Type:Patient Education Patient Instructions Indication:Non-smoker Start:01-Dec-2018 Instruction Type:Provider Instructions for Treatment How to access health informa tion online Indication:BMI 39.0-39.9,adult Start:05-Nov-2018 Instruction Type:Patient Education How to access health informa tion online - Detail Indication:BMI 39.0-39.9,adult Start:05-Nov-2018 Instruction Type:Patient Education Patient Instructions Indication:BMI 39.0-39.9,adult Start:05-Nov-2018 Instruction Type:Provider Instructions for Treatment How to access health informa tion online Indication:Non-smoker Start:29-Oct-2018 Instruction Type:Patient Education How to access health informa tion online - Detail Indication:Non-smoker Start:29-Oct-2018 Instruction Type:Patient Education Patient Instructions Indication:Non-smoker Start:29-Oct-2018 Instruction Type:Provider Instructions for Treatment How to access health informa tion online - Detail Indication:Non-smoker Start:08-Oct-2018 Instruction Type:Patient Education How to access health informa tion online Indication:Non-smoker Start:08-Oct-2018 Instruction Type:Patient Education How to access health informa tion online Indication:Fever and chills Start:06-Aug-2017 Instruction Type:Patient Education How to access health informa tion online - Detail Indication:Fever and chills Start:06-Aug-2017 Instruction Type:Patient Education Patient Instructions Indication:Fever and chills Start:06-Aug-2017 Instruction Type:Provider Instructions for Treatment How to access health informa tion online Indication:Non-smoker Start:20-Sep-2016 Instruction Type:Patient Education How to access health informa tion online - Detail Indication:Non-smoker Start:20-Sep-2016 Instruction Type:Patient Education Patient Instructions Indication:Non-smoker Start:20-Sep-2016 Instruction Type:Provider Instructions for Treatment How to access health informa tion online Indication:Sinusitis Start:14-Apr-2015 Instruction Type:Patient Education How to access health informa tion online - Detail Indication:Sinusitis Start:14-Apr-2015 Instruction Type:Patient Education Patient Instructions Indication:Sinusitis Start:14-Apr-2015 Instruction Type:Provider Instructions for Treatment How to access health informa tion online Indication:Wheezing Start:19-Jan-2015 Instruction Type:Patient Education How to access health informa tion online - Detail Indication:Wheezing Start:19-Jan-2015 Instruction Type:Patient Education Patient Instructions Indication:Wheezing Start:19-Jan-2015 Instruction Type:Provider Instructions for Treatment Patient Instructions Indication:Red eye Start:05-Oct-2013 Instruction Type:Provider Instructions for Treatment Patient Instructions Indication:Knee Pain (Renamed from Arthralgia of knee) Start:29-Sep-2013 Instruction Type:Provider Instructions for Treatment Patient Instructions Indication:Obesity Start:01-Sep-2013 Instruction Type:Provider Instructions for Treatment Patient Instructions Indication:Flank pain Start:06-Jul-2013 Instruction Type:Provider Instructions for Treatment Patient Instructions Indication:Hematuria Start:01-Jun-2013 Instruction Type:Provider Instructions for Treatment Patient Instructions Indication:Dysthymic Start:26-May-2012 Instruction Type:Provider Instructions for Treatment [facility] Work Phone: Summary Purpose Family History Unknown Family Member Name Dates Details Mother Comments:Insulin dependant d iabetes, HTN Status:Active Unknown Family Member Name Dates Details Mother Comments:Insulin dependant d iabetes, HTN Status:Active Unknown Family Member Name Dates Details Mother Comments:Insulin dependant d iabetes, HTN Status:Active Unknown Family Member Name Dates Details Mother Comments:Insulin dependant d iabetes, HTN Status:Active Unknown Family Member Name Dates Details Mother Comments:Insulin dependant d iabetes, HTN Status:Active Unknown Family Member Name Dates Details Mother Comments:Insulin dependant d iabetes, HTN Status:Active Unknown Family Member Name Dates Details Mother Comments:Insulin dependant d iabetes, HTN Status:Active Unknown Family Member Name Dates Details Mother Comments:Insulin dependant d iabetes, HTN Status:Active Unknown Family Member Name Dates Details Mother Comments:Insulin dependant d iabetes, HTN Status:Active Unknown Family Member Name Dates Details Mother Comments:Insulin dependant d iabetes, HTN Status:Active Unknown Family Member Name Dates Details Mother Comments:Insulin dependant d iabetes, HTN Status:Active Unknown Family Member Name Dates Details Mother Comments:Insulin dependant d iabetes, HTN Status:Active Unknown Family Member Name Dates Details Mother Comments:Insulin dependant d iabetes, HTN Status:Active Unknown Family Member Name Dates Details Mother Comments:Insulin dependant d iabetes, HTN Status:Active Unknown Family Member Name Dates Details Mother Comments:Insulin dependant d iabetes, HTN Status:Active Unknown Family Member Name Dates Details Mother Comments:Insulin dependant d iabetes, HTN Status:Active Unknown Family Member Name Dates Details Mother Comments:Insulin dependant d iabetes, HTN Status:Active Unknown Family Member Name Dates Details Mother Comments:Insulin dependant d iabetes, HTN Status:Active Unknown Family Member Name Dates Details Mother Comments:Insulin dependant d iabetes, HTN Status:Active Unknown Family Member Name Dates Details Mother Comments:Insulin dependant d iabetes, HTN Status:Active Unknown Family Member Name Dates Details Mother Comments:Insulin dependant d iabetes, HTN Status:Active Unknown Family Member Name Dates Details Mother Comments:Insulin dependant d iabetes, HTN Status:Active Unknown Family Member Name Dates Details Mother Comments:Insulin dependant d iabetes, HTN Status:Active Unknown Family Member Name Dates Details Mother Comments:Insulin dependant d iabetes, HTN Status:Active Unknown Family Member Name Dates Details Mother Comments:Insulin dependant d iabetes, HTN Status:Active Unknown Family Member Name Dates Details Mother Comments:Insulin dependant d iabetes, HTN Status:Active Unknown Family Member Name Dates Details Mother Comments:Insulin dependant d iabetes, HTN Status:Active Unknown Family Member Name Dates Details Mother Comments:Insulin dependant d iabetes, HTN Status:Active Unknown Family Member Name Dates Details Mother Comments:Insulin dependant d iabetes, HTN Status:Active Unknown Family Member Name Dates Details Mother Comments:Insulin dependant d iabetes, HTN Status:Active Unknown Family Member Name Dates Details Mother Comments:Insulin dependant d iabetes, HTN Status:Active Unknown Family Member Name Dates Details Mother Comments:Insulin dependant d iabetes, HTN Status:Active Unknown Family Member Name Dates Details Mother Comments:Insulin dependant d iabetes, HTN Status:Active Unknown Family Member Name Dates Details Mother Comments:Insulin dependant d iabetes, HTN Status:Active Unknown Family Member Name Dates Details Mother Comments:Insulin dependant d iabetes, HTN Status:Active Unknown Family Member Name Dates Details Mother Comments:Insulin dependant d iabetes, HTN Status:Active Unknown Family Member Name Dates Details Mother Comments:Insulin dependant d iabetes, HTN Status:Active Unknown Family Member Name Dates Details Mother Comments:Insulin dependant d iabetes, HTN Status:Active Advance Directives No Advanced Directives Records FoundNo Advanced Directives Records FoundNo Advanced Directives Records FoundNo Advanced Directives Records Found Instructions Name Dates Details Fever and chills : How to ac cess health information online Indication:Fever and chills Fever and chills : How to ac cess health information online - Detail Indication:Fever and chills Fever and chills : Patient I nstructions Indication:Fever and chills Non-smoker : How to access h ealth information online Indication:Non-smoker Non-smoker : How to access h ealth information online - Detail Indication:Non-smoker Non-smoker : Patient Instruc tions Indication:Non-smoker Sinusitis : How to access he alth information online Indication:Sinusitis Sinusitis : How to access he alth information online - Detail Indication:Sinusitis Sinusitis : Patient Instruct ions Indication:Sinusitis Wheezing : How to access hea lth information online Indication:Wheezing Wheezing : How to access hea lth information online - Detail Indication:Wheezing Wheezing : Patient Instructi ons Indication:Wheezing Red eye : Patient Instructio ns Indication:Red eye Knee Pain (Renamed from Arth ralgia of knee) : Patient Instructions Indication:Knee Pain (Renamed from Arthralgia of knee) Obesity : Patient Instructio ns Indication:Obesity Flank pain : Patient Instruc tions Indication:Flank pain Hematuria : Patient Instruct ions Indication:Hematuria Dysthymic : Patient Instruct ions Indication:Dysthymic Name Dates Details Non-smoker : How to access h ealth information online - Detail Indication:Non-smoker Non-smoker : How to access h ealth information online Indication:Non-smoker Fever and chills : How to ac cess health information online Indication:Fever and chills Fever and chills : How to ac cess health information online - Detail Indication:Fever and chills Fever and chills : Patient I nstructions Indication:Fever and chills Non-smoker : Patient Instruc tions Indication:Non-smoker Sinusitis : How to access he alth information online Indication:Sinusitis Sinusitis : How to access he alth information online - Detail Indication:Sinusitis Sinusitis : Patient Instruct ions Indication:Sinusitis Wheezing : How to access hea lth information online Indication:Wheezing Wheezing : How to access hea lth information online - Detail Indication:Wheezing Wheezing : Patient Instructi ons Indication:Wheezing Red eye : Patient Instructio ns Indication:Red eye Knee Pain (Renamed from Arth ralgia of knee) : Patient Instructions Indication:Knee Pain (Renamed from Arthralgia of knee) Obesity : Patient Instructio ns Indication:Obesity Flank pain : Patient Instruc tions Indication:Flank pain Hematuria : Patient Instruct ions Indication:Hematuria Dysthymic : Patient Instruct ions Indication:Dysthymic Name Dates Details BMI 39.0-39.9,adult : How to access health information online Indication:BMI 39.0-39.9,adult BMI 39.0-39.9,adult : How to access health information online - Detail Indication:BMI 39.0-39.9,adult BMI 39.0-39.9,adult : Patien t Instructions Indication:BMI 39.0-39.9,adult Non-smoker : How to access h ealth information online Indication:Non-smoker Non-smoker : How to access h ealth information online - Detail Indication:Non-smoker Non-smoker : Patient Instruc tions Indication:Non-smoker Fever and chills : How to ac cess health information online Indication:Fever and chills Fever and chills : How to ac cess health information online - Detail Indication:Fever and chills Fever and chills : Patient I nstructions Indication:Fever and chills Sinusitis : How to access he alth information online Indication:Sinusitis Sinusitis : How to access he alth information online - Detail Indication:Sinusitis Sinusitis : Patient Instruct ions Indication:Sinusitis Wheezing : How to access hea lth information online Indication:Wheezing Wheezing : How to access hea lth information online - Detail Indication:Wheezing Wheezing : Patient Instructi ons Indication:Wheezing Red eye : Patient Instructio ns Indication:Red eye Knee Pain (Renamed from Arth ralgia of knee) : Patient Instructions Indication:Knee Pain (Renamed from Arthralgia of knee) Obesity : Patient Instructio ns Indication:Obesity Flank pain : Patient Instruc tions Indication:Flank pain Hematuria : Patient Instruct ions Indication:Hematuria Dysthymic : Patient Instruct ions Indication:Dysthymic Name Dates Details How to access health informa tion online Indication:Non-smoker Start:01-Dec-2018 Instruction Type:Patient Education How to access health informa tion online - Detail Indication:Non-smoker Start:01-Dec-2018 Instruction Type:Patient Education Patient Instructions Indication:Non-smoker Start:01-Dec-2018 Instruction Type:Provider Instructions for Treatment How to access health informa tion online Indication:BMI 39.0-39.9,adult Start:05-Nov-2018 Instruction Type:Patient Education How to access health informa tion online - Detail Indication:BMI 39.0-39.9,adult Start:05-Nov-2018 Instruction Type:Patient Education Patient Instructions Indication:BMI 39.0-39.9,adult Start:05-Nov-2018 Instruction Type:Provider Instructions for Treatment How to access health informa tion online Indication:Non-smoker Start:29-Oct-2018 Instruction Type:Patient Education How to access health informa tion online - Detail Indication:Non-smoker Start:29-Oct-2018 Instruction Type:Patient Education Patient Instructions Indication:Non-smoker Start:29-Oct-2018 Instruction Type:Provider Instructions for Treatment How to access health informa tion online - Detail Indication:Non-smoker Start:08-Oct-2018 Instruction Type:Patient Education How to access health informa tion online Indication:Non-smoker Start:08-Oct-2018 Instruction Type:Patient Education How to access health informa tion online Indication:Fever and chills Start:06-Aug-2017 Instruction Type:Patient Education How to access health informa tion online - Detail Indication:Fever and chills Start:06-Aug-2017 Instruction Type:Patient Education Patient Instructions Indication:Fever and chills Start:06-Aug-2017 Instruction Type:Provider Instructions for Treatment How to access health informa tion online Indication:Non-smoker Start:20-Sep-2016 Instruction Type:Patient Education How to access health informa tion online - Detail Indication:Non-smoker Start:20-Sep-2016 Instruction Type:Patient Education Patient Instructions Indication:Non-smoker Start:20-Sep-2016 Instruction Type:Provider Instructions for Treatment How to access health informa tion online Indication:Sinusitis Start:14-Apr-2015 Instruction Type:Patient Education How to access health informa tion online - Detail Indication:Sinusitis Start:14-Apr-2015 Instruction Type:Patient Education Patient Instructions Indication:Sinusitis Start:14-Apr-2015 Instruction Type:Provider Instructions for Treatment How to access health informa tion online Indication:Wheezing Start:19-Jan-2015 Instruction Type:Patient Education How to access health informa tion online - Detail Indication:Wheezing Start:19-Jan-2015 Instruction Type:Patient Education Patient Instructions Indication:Wheezing Start:19-Jan-2015 Instruction Type:Provider Instructions for Treatment Patient Instructions Indication:Red eye Start:05-Oct-2013 Instruction Type:Provider Instructions for Treatment Patient Instructions Indication:Knee Pain (Renamed from Arthralgia of knee) Start:29-Sep-2013 Instruction Type:Provider Instructions for Treatment Patient Instructions Indication:Obesity Start:01-Sep-2013 Instruction Type:Provider Instructions for Treatment Patient Instructions Indication:Flank pain Start:06-Jul-2013 Instruction Type:Provider Instructions for Treatment Patient Instructions Indication:Hematuria Start:01-Jun-2013 Instruction Type:Provider Instructions for Treatment Patient Instructions Indication:Dysthymic Start:26-May-2012 Instruction Type:Provider Instructions for Treatment Name Dates Details How to access health informa tion online Indication:Non-smoker Start:01-Dec-2018 Instruction Type:Patient Education How to access health informa tion online - Detail Indication:Non-smoker Start:01-Dec-2018 Instruction Type:Patient Education Patient Instructions Indication:Non-smoker Start:01-Dec-2018 Instruction Type:Provider Instructions for Treatment How to access health informa tion online Indication:BMI 39.0-39.9,adult Start:05-Nov-2018 Instruction Type:Patient Education How to access health informa tion online - Detail Indication:BMI 39.0-39.9,adult Start:05-Nov-2018 Instruction Type:Patient Education Patient Instructions Indication:BMI 39.0-39.9,adult Start:05-Nov-2018 Instruction Type:Provider Instructions for Treatment How to access health informa tion online Indication:Non-smoker Start:29-Oct-2018 Instruction Type:Patient Education How to access health informa tion online - Detail Indication:Non-smoker Start:29-Oct-2018 Instruction Type:Patient Education Patient Instructions Indication:Non-smoker Start:29-Oct-2018 Instruction Type:Provider Instructions for Treatment How to access health informa tion online - Detail Indication:Non-smoker Start:08-Oct-2018 Instruction Type:Patient Education How to access health informa tion online Indication:Non-smoker Start:08-Oct-2018 Instruction Type:Patient Education How to access health informa tion online Indication:Fever and chills Start:06-Aug-2017 Instruction Type:Patient Education How to access health informa tion online - Detail Indication:Fever and chills Start:06-Aug-2017 Instruction Type:Patient Education Patient Instructions Indication:Fever and chills Start:06-Aug-2017 Instruction Type:Provider Instructions for Treatment How to access health informa tion online Indication:Non-smoker Start:20-Sep-2016 Instruction Type:Patient Education How to access health informa tion online - Detail Indication:Non-smoker Start:20-Sep-2016 Instruction Type:Patient Education Patient Instructions Indication:Non-smoker Start:20-Sep-2016 Instruction Type:Provider Instructions for Treatment How to access health informa tion online Indication:Sinusitis Start:14-Apr-2015 Instruction Type:Patient Education How to access health informa tion online - Detail Indication:Sinusitis Start:14-Apr-2015 Instruction Type:Patient Education Patient Instructions Indication:Sinusitis Start:14-Apr-2015 Instruction Type:Provider Instructions for Treatment How to access health informa tion online Indication:Wheezing Start:19-Jan-2015 Instruction Type:Patient Education How to access health informa tion online - Detail Indication:Wheezing Start:19-Jan-2015 Instruction Type:Patient Education Patient Instructions Indication:Wheezing Start:19-Jan-2015 Instruction Type:Provider Instructions for Treatment Patient Instructions Indication:Red eye Start:05-Oct-2013 Instruction Type:Provider Instructions for Treatment Patient Instructions Indication:Knee Pain (Renamed from Arthralgia of knee) Start:29-Sep-2013 Instruction Type:Provider Instructions for Treatment Patient Instructions Indication:Obesity Start:01-Sep-2013 Instruction Type:Provider Instructions for Treatment Patient Instructions Indication:Flank pain Start:06-Jul-2013 Instruction Type:Provider Instructions for Treatment Patient Instructions Indication:Hematuria Start:01-Jun-2013 Instruction Type:Provider Instructions for Treatment Patient Instructions Indication:Dysthymic Start:26-May-2012 Instruction Type:Provider Instructions for Treatment Name Dates Details How to access health informa tion online Indication:Non-smoker Start:01-Dec-2018 Instruction Type:Patient Education How to access health informa tion online - Detail Indication:Non-smoker Start:01-Dec-2018 Instruction Type:Patient Education Patient Instructions Indication:Non-smoker Start:01-Dec-2018 Instruction Type:Provider Instructions for Treatment How to access health informa tion online Indication:BMI 39.0-39.9,adult Start:05-Nov-2018 Instruction Type:Patient Education How to access health informa tion online - Detail Indication:BMI 39.0-39.9,adult Start:05-Nov-2018 Instruction Type:Patient Education Patient Instructions Indication:BMI 39.0-39.9,adult Start:05-Nov-2018 Instruction Type:Provider Instructions for Treatment How to access health informa tion online Indication:Non-smoker Start:29-Oct-2018 Instruction Type:Patient Education How to access health informa tion online - Detail Indication:Non-smoker Start:29-Oct-2018 Instruction Type:Patient Education Patient Instructions Indication:Non-smoker Start:29-Oct-2018 Instruction Type:Provider Instructions for Treatment How to access health informa tion online - Detail Indication:Non-smoker Start:08-Oct-2018 Instruction Type:Patient Education How to access health informa tion online Indication:Non-smoker Start:08-Oct-2018 Instruction Type:Patient Education How to access health informa tion online Indication:Fever and chills Start:06-Aug-2017 Instruction Type:Patient Education How to access health informa tion online - Detail Indication:Fever and chills Start:06-Aug-2017 Instruction Type:Patient Education Patient Instructions Indication:Fever and chills Start:06-Aug-2017 Instruction Type:Provider Instructions for Treatment How to access health informa tion online Indication:Non-smoker Start:20-Sep-2016 Instruction Type:Patient Education How to access health informa tion online - Detail Indication:Non-smoker Start:20-Sep-2016 Instruction Type:Patient Education Patient Instructions Indication:Non-smoker Start:20-Sep-2016 Instruction Type:Provider Instructions for Treatment How to access health informa tion online Indication:Sinusitis Start:14-Apr-2015 Instruction Type:Patient Education How to access health informa tion online - Detail Indication:Sinusitis Start:14-Apr-2015 Instruction Type:Patient Education Patient Instructions Indication:Sinusitis Start:14-Apr-2015 Instruction Type:Provider Instructions for Treatment How to access health informa tion online Indication:Wheezing Start:19-Jan-2015 Instruction Type:Patient Education How to access health informa tion online - Detail Indication:Wheezing Start:19-Jan-2015 Instruction Type:Patient Education Patient Instructions Indication:Wheezing Start:19-Jan-2015 Instruction Type:Provider Instructions for Treatment Patient Instructions Indication:Red eye Start:05-Oct-2013 Instruction Type:Provider Instructions for Treatment Patient Instructions Indication:Knee Pain (Renamed from Arthralgia of knee) Start:29-Sep-2013 Instruction Type:Provider Instructions for Treatment Patient Instructions Indication:Obesity Start:01-Sep-2013 Instruction Type:Provider Instructions for Treatment Patient Instructions Indication:Flank pain Start:06-Jul-2013 Instruction Type:Provider Instructions for Treatment Patient Instructions Indication:Hematuria Start:01-Jun-2013 Instruction Type:Provider Instructions for Treatment Patient Instructions Indication:Dysthymic Start:26-May-2012 Instruction Type:Provider Instructions for Treatment Name Dates Details How to access health informa tion online Indication:Non-smoker Start:01-Dec-2018 Instruction Type:Patient Education How to access health informa tion online - Detail Indication:Non-smoker Start:01-Dec-2018 Instruction Type:Patient Education Patient Instructions Indication:Non-smoker Start:01-Dec-2018 Instruction Type:Provider Instructions for Treatment How to access health informa tion online Indication:BMI 39.0-39.9,adult Start:05-Nov-2018 Instruction Type:Patient Education How to access health informa tion online - Detail Indication:BMI 39.0-39.9,adult Start:05-Nov-2018 Instruction Type:Patient Education Patient Instructions Indication:BMI 39.0-39.9,adult Start:05-Nov-2018 Instruction Type:Provider Instructions for Treatment How to access health informa tion online Indication:Non-smoker Start:29-Oct-2018 Instruction Type:Patient Education How to access health informa tion online - Detail Indication:Non-smoker Start:29-Oct-2018 Instruction Type:Patient Education Patient Instructions Indication:Non-smoker Start:29-Oct-2018 Instruction Type:Provider Instructions for Treatment How to access health informa tion online - Detail Indication:Non-smoker Start:08-Oct-2018 Instruction Type:Patient Education How to access health informa tion online Indication:Non-smoker Start:08-Oct-2018 Instruction Type:Patient Education How to access health informa tion online Indication:Fever and chills Start:06-Aug-2017 Instruction Type:Patient Education How to access health informa tion online - Detail Indication:Fever and chills Start:06-Aug-2017 Instruction Type:Patient Education Patient Instructions Indication:Fever and chills Start:06-Aug-2017 Instruction Type:Provider Instructions for Treatment How to access health informa tion online Indication:Non-smoker Start:20-Sep-2016 Instruction Type:Patient Education How to access health informa tion online - Detail Indication:Non-smoker Start:20-Sep-2016 Instruction Type:Patient Education Patient Instructions Indication:Non-smoker Start:20-Sep-2016 Instruction Type:Provider Instructions for Treatment How to access health informa tion online Indication:Sinusitis Start:14-Apr-2015 Instruction Type:Patient Education How to access health informa tion online - Detail Indication:Sinusitis Start:14-Apr-2015 Instruction Type:Patient Education Patient Instructions Indication:Sinusitis Start:14-Apr-2015 Instruction Type:Provider Instructions for Treatment How to access health informa tion online Indication:Wheezing Start:19-Jan-2015 Instruction Type:Patient Education How to access health informa tion online - Detail Indication:Wheezing Start:19-Jan-2015 Instruction Type:Patient Education Patient Instructions Indication:Wheezing Start:19-Jan-2015 Instruction Type:Provider Instructions for Treatment Patient Instructions Indication:Red eye Start:05-Oct-2013 Instruction Type:Provider Instructions for Treatment Patient Instructions Indication:Knee Pain (Renamed from Arthralgia of knee) Start:29-Sep-2013 Instruction Type:Provider Instructions for Treatment Patient Instructions Indication:Obesity Start:01-Sep-2013 Instruction Type:Provider Instructions for Treatment Patient Instructions Indication:Flank pain Start:06-Jul-2013 Instruction Type:Provider Instructions for Treatment Patient Instructions Indication:Hematuria Start:01-Jun-2013 Instruction Type:Provider Instructions for Treatment Patient Instructions Indication:Dysthymic Start:26-May-2012 Instruction Type:Provider Instructions for Treatment Name Dates Details How to access health informa tion online Indication:Non-smoker Start:01-Dec-2018 Instruction Type:Patient Education How to access health informa tion online - Detail Indication:Non-smoker Start:01-Dec-2018 Instruction Type:Patient Education Patient Instructions Indication:Non-smoker Start:01-Dec-2018 Instruction Type:Provider Instructions for Treatment How to access health informa tion online Indication:BMI 39.0-39.9,adult Start:05-Nov-2018 Instruction Type:Patient Education How to access health informa tion online - Detail Indication:BMI 39.0-39.9,adult Start:05-Nov-2018 Instruction Type:Patient Education Patient Instructions Indication:BMI 39.0-39.9,adult Start:05-Nov-2018 Instruction Type:Provider Instructions for Treatment How to access health informa tion online Indication:Non-smoker Start:29-Oct-2018 Instruction Type:Patient Education How to access health informa tion online - Detail Indication:Non-smoker Start:29-Oct-2018 Instruction Type:Patient Education Patient Instructions Indication:Non-smoker Start:29-Oct-2018 Instruction Type:Provider Instructions for Treatment How to access health informa tion online - Detail Indication:Non-smoker Start:08-Oct-2018 Instruction Type:Patient Education How to access health informa tion online Indication:Non-smoker Start:08-Oct-2018 Instruction Type:Patient Education How to access health informa tion online Indication:Fever and chills Start:06-Aug-2017 Instruction Type:Patient Education How to access health informa tion online - Detail Indication:Fever and chills Start:06-Aug-2017 Instruction Type:Patient Education Patient Instructions Indication:Fever and chills Start:06-Aug-2017 Instruction Type:Provider Instructions for Treatment How to access health informa tion online Indication:Non-smoker Start:20-Sep-2016 Instruction Type:Patient Education How to access health informa tion online - Detail Indication:Non-smoker Start:20-Sep-2016 Instruction Type:Patient Education Patient Instructions Indication:Non-smoker Start:20-Sep-2016 Instruction Type:Provider Instructions for Treatment How to access health informa tion online Indication:Sinusitis Start:14-Apr-2015 Instruction Type:Patient Education How to access health informa tion online - Detail Indication:Sinusitis Start:14-Apr-2015 Instruction Type:Patient Education Patient Instructions Indication:Sinusitis Start:14-Apr-2015 Instruction Type:Provider Instructions for Treatment How to access health informa tion online Indication:Wheezing Start:19-Jan-2015 Instruction Type:Patient Education How to access health informa tion online - Detail Indication:Wheezing Start:19-Jan-2015 Instruction Type:Patient Education Patient Instructions Indication:Wheezing Start:19-Jan-2015 Instruction Type:Provider Instructions for Treatment Patient Instructions Indication:Red eye Start:05-Oct-2013 Instruction Type:Provider Instructions for Treatment Patient Instructions Indication:Knee Pain (Renamed from Arthralgia of knee) Start:29-Sep-2013 Instruction Type:Provider Instructions for Treatment Patient Instructions Indication:Obesity Start:01-Sep-2013 Instruction Type:Provider Instructions for Treatment Patient Instructions Indication:Flank pain Start:06-Jul-2013 Instruction Type:Provider Instructions for Treatment Patient Instructions Indication:Hematuria Start:01-Jun-2013 Instruction Type:Provider Instructions for Treatment Patient Instructions Indication:Dysthymic Start:26-May-2012 Instruction Type:Provider Instructions for Treatment Name Dates Details Non-smoker : How to access [employer] Indication:Non-smoker Non-smoker : How to access h ealth information online - Detail Indication:Non-smoker Non-smoker : Patient Instruc tions Indication:Non-smoker Fever and chills : How to ac cess health information online Indication:Fever and chills Fever and chills : How to ac cess health information online - Detail Indication:Fever and chills Fever and chills : Patient I nstructions Indication:Fever and chills Sinusitis : How to access he alth information online Indication:Sinusitis Sinusitis : How to access he alth information online - Detail Indication:Sinusitis Sinusitis : Patient Instruct ions Indication:Sinusitis Wheezing : How to access hea lth information online Indication:Wheezing Wheezing : How to access hea lth information online - Detail Indication:Wheezing Wheezing : Patient Instructi ons Indication:Wheezing Red eye : Patient Instructio ns Indication:Red eye Knee Pain (Renamed from Arth ralgia of knee) : Patient Instructions Indication:Knee Pain (Renamed from Arthralgia of knee) Obesity : Patient Instructio ns Indication:Obesity Flank pain : Patient Instruc tions Indication:Flank pain Hematuria : Patient Instruct ions Indication:Hematuria Dysthymic : Patient Instruct ions Indication:Dysthymic Name Dates Details How to access health informa tion online Indication:BMI 39.0-39.9,adult Start:01-Oct-2019 Instruction Type:Patient Education How to access health informa tion online - Detail Indication:BMI 39.0-39.9,adult Start:01-Oct-2019 Instruction Type:Patient Education Patient Instructions Indication:BMI 39.0-39.9,adult Start:01-Oct-2019 Instruction Type:Provider Instructions for Treatment How to access health informa tion online Indication:BMI 40.0-44.9, adult Start:31-Aug-2019 Instruction Type:Patient Education How to access health informa tion online - Detail Indication:BMI 40.0-44.9, adult Start:31-Aug-2019 Instruction Type:Patient Education Patient Instructions Indication:BMI 40.0-44.9, adult Start:31-Aug-2019 Instruction Type:Provider Instructions for Treatment How to access health informa tion online - Detail Indication:BMI 40.0-44.9, adult Start:27-Jul-2019 Instruction Type:Patient Education Patient Instructions Indication:BMI 40.0-44.9, adult Start:27-Jul-2019 Instruction Type:Provider Instructions for Treatment How to access health informa tion online Indication:Non-smoker Start:01-Dec-2018 Instruction Type:Patient Education How to access health informa tion online - Detail Indication:Non-smoker Start:01-Dec-2018 Instruction Type:Patient Education Patient Instructions Indication:Non-smoker Start:01-Dec-2018 Instruction Type:Provider Instructions for Treatment How to access health informa tion online Indication:BMI 39.0-39.9,adult Start:05-Nov-2018 Instruction Type:Patient Education How to access health informa tion online - Detail Indication:BMI 39.0-39.9,adult Start:05-Nov-2018 Instruction Type:Patient Education Patient Instructions Indication:BMI 39.0-39.9,adult Start:05-Nov-2018 Instruction Type:Provider Instructions for Treatment How to access health informa tion online Indication:Non-smoker Start:29-Oct-2018 Instruction Type:Patient Education How to access health informa tion online - Detail Indication:Non-smoker Start:29-Oct-2018 Instruction Type:Patient Education Patient Instructions Indication:Non-smoker Start:29-Oct-2018 Instruction Type:Provider Instructions for Treatment How to access health informa tion online - Detail Indication:Non-smoker Start:08-Oct-2018 Instruction Type:Patient Education How to access health informa tion online Indication:Non-smoker Start:08-Oct-2018 Instruction Type:Patient Education How to access health informa tion online Indication:Fever and chills Start:06-Aug-2017 Instruction Type:Patient Education How to access health informa tion online - Detail Indication:Fever and chills Start:06-Aug-2017 Instruction Type:Patient Education Patient Instructions Indication:Fever and chills Start:06-Aug-2017 Instruction Type:Provider Instructions for Treatment How to access health informa tion online Indication:Non-smoker Start:20-Sep-2016 Instruction Type:Patient Education How to access health informa tion online - Detail Indication:Non-smoker Start:20-Sep-2016 Instruction Type:Patient Education Patient Instructions Indication:Non-smoker Start:20-Sep-2016 Instruction Type:Provider Instructions for Treatment How to access health informa tion online Indication:Sinusitis Start:14-Apr-2015 Instruction Type:Patient Education How to access health informa tion online - Detail Indication:Sinusitis Start:14-Apr-2015 Instruction Type:Patient Education Patient Instructions Indication:Sinusitis Start:14-Apr-2015 Instruction Type:Provider Instructions for Treatment How to access health informa tion online Indication:Wheezing Start:19-Jan-2015 Instruction Type:Patient Education How to access health informa tion online - Detail Indication:Wheezing Start:19-Jan-2015 Instruction Type:Patient Education Patient Instructions Indication:Wheezing Start:19-Jan-2015 Instruction Type:Provider Instructions for Treatment Patient Instructions Indication:Red eye Start:05-Oct-2013 Instruction Type:Provider Instructions for Treatment Patient Instructions Indication:Knee Pain (Renamed from Arthralgia of knee) Start:29-Sep-2013 Instruction Type:Provider Instructions for Treatment Patient Instructions Indication:Obesity Start:01-Sep-2013 Instruction Type:Provider Instructions for Treatment Patient Instructions Indication:Flank pain Start:06-Jul-2013 Instruction Type:Provider Instructions for Treatment Patient Instructions Indication:Hematuria Start:01-Jun-2013 Instruction Type:Provider Instructions for Treatment Patient Instructions Indication:Dysthymic Start:26-May-2012 Instruction Type:Provider Instructions for Treatment Name Dates Details How to access health informa tion online Indication:Non-smoker Start:01-Dec-2018 Instruction Type:Patient Education How to access health informa tion online - Detail Indication:Non-smoker Start:01-Dec-2018 Instruction Type:Patient Education Patient Instructions Indication:Non-smoker Start:01-Dec-2018 Instruction Type:Provider Instructions for Treatment How to access health informa tion online Indication:BMI 39.0-39.9,adult Start:05-Nov-2018 Instruction Type:Patient Education How to access health informa tion online - Detail Indication:BMI 39.0-39.9,adult Start:05-Nov-2018 Instruction Type:Patient Education Patient Instructions Indication:BMI 39.0-39.9,adult Start:05-Nov-2018 Instruction Type:Provider Instructions for Treatment How to access health informa tion online Indication:Non-smoker Start:29-Oct-2018 Instruction Type:Patient Education How to access health informa tion online - Detail Indication:Non-smoker Start:29-Oct-2018 Instruction Type:Patient Education Patient Instructions Indication:Non-smoker Start:29-Oct-2018 Instruction Type:Provider Instructions for Treatment How to access health informa tion online - Detail Indication:Non-smoker Start:08-Oct-2018 Instruction Type:Patient Education How to access health informa tion online Indication:Non-smoker Start:08-Oct-2018 Instruction Type:Patient Education How to access health informa tion online Indication:Fever and chills Start:06-Aug-2017 Instruction Type:Patient Education How to access health informa tion online - Detail Indication:Fever and chills Start:06-Aug-2017 Instruction Type:Patient Education Patient Instructions Indication:Fever and chills Start:06-Aug-2017 Instruction Type:Provider Instructions for Treatment How to access health informa tion online Indication:Non-smoker Start:20-Sep-2016 Instruction Type:Patient Education How to access health informa tion online - Detail Indication:Non-smoker Start:20-Sep-2016 Instruction Type:Patient Education Patient Instructions Indication:Non-smoker Start:20-Sep-2016 Instruction Type:Provider Instructions for Treatment How to access health informa tion online Indication:Sinusitis Start:14-Apr-2015 Instruction Type:Patient Education How to access health informa tion online - Detail Indication:Sinusitis Start:14-Apr-2015 Instruction Type:Patient Education Patient Instructions Indication:Sinusitis Start:14-Apr-2015 Instruction Type:Provider Instructions for Treatment How to access health informa tion online Indication:Wheezing Start:19-Jan-2015 Instruction Type:Patient Education How to access health informa tion online - Detail Indication:Wheezing Start:19-Jan-2015 Instruction Type:Patient Education Patient Instructions Indication:Wheezing Start:19-Jan-2015 Instruction Type:Provider Instructions for Treatment Patient Instructions Indication:Red eye Start:05-Oct-2013 Instruction Type:Provider Instructions for Treatment Patient Instructions Indication:Knee Pain (Renamed from Arthralgia of knee) Start:29-Sep-2013 Instruction Type:Provider Instructions for Treatment Patient Instructions Indication:Obesity Start:01-Sep-2013 Instruction Type:Provider Instructions for Treatment Patient Instructions Indication:Flank pain Start:06-Jul-2013 Instruction Type:Provider Instructions for Treatment Patient Instructions Indication:Hematuria Start:01-Jun-2013 Instruction Type:Provider Instructions for Treatment Patient Instructions Indication:Dysthymic Start:26-May-2012 Instruction Type:Provider Instructions for Treatment Additional Source Comments INFORMATION SOURCE (unrecogn ized section and content) DATE CREATED AUTHOR AUTHOR'S ORGANIZ ATION 05/24/2018 [facility] DATE CREATED AUTHOR AUTHOR'S ORGANIZ ATION 05/27/2018 [facility] DATE CREATED AUTHOR AUTHOR'S ORGANIZ ATION 10/30/2022 [facility] FOR RECORDS PERTAINING TO PATIENTS WHO ARE OR HAVE BEEN ENROLLED IN A CHEMICAL DEPENDENCY/SUBSTANCEABUSE PROGRAM, SOME INFORMATION MAY BE OMITTED. This clinical summary was aggregated from multiple sources. Caution should be exercised in using it in the provision of clinical care. This summary normalizes information from multiple sources, and as a consequence, information in this document may materially change the coding, format and clinical context of patient data. In addition, data may be omitted in some cases. CLINICAL DECISIONS SHOULD BE BASED ON THE PRIMARY CLINICAL RECORDS. [employer] provides no warranty or guarantee of the accuracy or completeness of information in this document.
[2023-08-07 18:50] LABS: International Normalized Ratio 0.9; Prothrombin Time (Protime)PT. 12.4 SECONDS (11.7-14.9)
[2023-08-07 18:51] LABS: Partial Thromboplast Time 26.8 Seconds (24.1-36.2)
[2023-08-07 18:53] LABS: Anion Gap 6 (5-15); BUN 43 mg/dL (7-18); BUN/Creat Ratio 23.6 RATIO (10-20); Calcium,Total 9.1 mg/dL (8.5-10.1); Chloride 113 mmol/L (98-107); Creatinine, Serum 1.82 mg/dL (0.55-1.02); EST Glomerular Filtration Rate 29 mL/min (>60); Est Glom Filt Rate - Afr Amer 35 mL/min (>60); Estimated Creatinine Clearance 34.69 ml/min; Glucose 119 mg/dL (74-106); Potassium 3.9 mmol/L (3.5-5.1); Sodium Level 143 mmol/L (136-145); Troponin-I HS 14 pg/mL (3.0-54.0)
--- NOTE | 2023-08-07 19:08 | RAD_ITS ---
STUDY: X-RAY CHEST REASON FOR EXAM: Female, 73 years old. Neuro deficit, acute, stroke suspected TECHNIQUE: Single AP portable view of the chest. COMPARISON: 09/30/2018. FINDINGS: The lungs are clear and expanded. There is no demonstrated pleural abnormality. Normal size heart. Normal mediastinum and jil. Normal visualized pulmonary arteries. Normal visualized aortic arch and descending thoracic aorta. There are diffuse degenerative changes of the visualized thoracic spine. There is degenerative osteoarthritis of the bilateral shoulders. There is no demonstrated abnormality of the visualized soft tissue structures of the upper abdomen. RAD/Chest 1 View IMPRESSION: No acute cardiopulmonary disease. Electronically Signed: Brenda Lee MD at 19:24 EST ,
--- NOTE | 2023-08-07 19:27 | PCM.HP.STD ---
HPI - General General Date of Admission: 08/07/23 Date of Service: 08/07/23 Chief Complaint: stroke like symptoms HPI Narrative ROGE COOK, is a 73 F with a PMH as outlined who presents via the ED on 08/07/2023 with a complaint of stroke like symptoms. She had a brief episode of aphasia, and couldnt get her words out. She also had decreased sensation around her chin. Symptoms lasted about 5 minutes. She denied any headache, blurred vision, chest pain, palpitations dizziness, nausea, vomiting or any other symptoms. She denied any focal weakness. Review of systems was otherwise negative. Her last known well was around 5:15pm on the evening of admission. Vitals in the ED were BP of 149/85, DC of 75, RR of 14 and he was saturating at 99% on room air. CBC was largely unremarkable, and Chemistry showed sodium of 143, potassium of 3.9, Cr of 1.82 and initial troponin of 14. CXR showed no acute cardiopulmonary process and EKG showed no acute ST changes. CT of the brain showed no acute intracranial pathology. Her symptoms had resolved by the time she came to the ED. She is being admitted to be managed for TIA to rule out a stroke. [facility] Medical History Benign paroxysmal positional vertigo CKD (chronic kidney disease) stage 3, GFR 30-59 ml/min Essential hypertension Non-rheumatic mitral valve stenosis Premature ventricular contraction Pulmonary hypertension Vertigo Home Medications hydrochlorothiazide 12.5 mg tablet 12.5 mg PO DAILY BLOOD PRESSURE 01/25/21 [History Last Taken Unknown] cyanocobalamin (vitamin B-12) 2,500 mcg sublingual tablet (Vitamin B-12) 2,500 mcg PO MOWEFR SUPPLEMENT 10/18/21 [History Last Taken Unknown] losartan 25 mg tablet 25 mg PO DAILY BLOOD PRESSURE 10/18/21 [History Last Taken Unknown] hydrochlorothiazide 12.5 mg capsule 12.5 mg PO DAILY BLOOD PRESSURE 08/07/23 [History Last Taken Unknown] Allergy/AdvReac Type Severity Reaction Status Date / Time poison brandee extract Allergy Rash Verified 08/07/23 17:49 poison oak extract Allergy Rash Verified 08/07/23 17:49 Family History Mother Diabetes Hypertension Surgical History History of cholecystectomy (~2008) Social History (Updated 08/07/23 @ 21:38 by Roro Fisher) household members: spouse housing: other number of children: 2 pets and animals: No Smoking Status: Never smoker alcohol intake: current details: occasional substance use type: does not use caffeine: Yes Type: carbonated beverages ROS Constitutional Constitutional: Denies anorexia, chills, fatigue, fever(s), malaise or weakness Eyes Eyes: Denies change in vision ENT HEENT: Denies dysphagia Cardiovascular Cardiovascular: Denies chest pain, edema, orthopnea, palpitations or paroxysmal nocturnal dyspnea Respiratory/Chest Respiratory/Chest: Denies cough, shortness of breath at rest or shortness of breath with exertion Gastrointestinal Gastrointestinal: Denies abdominal pain, nausea or vomiting Genitourinary Genitourinary: Denies dysuria Musculoskeletal Musculoskeletal: Denies joint pain Neurologic Neurologic: Denies confusion, dizziness, focal weakness or headache(s) Vital Signs Vital Signs Vital Signs: 08/07/23 17:49 Temperature 97.8 F Temperature Source Oral Pulse Rate 90 Respiratory Rate 16 Blood Pressure 123/95 H Blood Pressure Mean 104 Pulse Ox 20 Oxygen Delivery Method Room Air Weight Weight: 250 lb 7.122 oz Body Mass Index (BMI) 40.2 Physical Exam Const alert, oriented x3, no apparent distress and well nourished General Appearance: cooperative and well developed HEENT normocephalic, head/scalp atraumatic and moist oral mucous membranes Eyes PERRL and EOMs intact bilaterally Neck no lymphadenopathy, supple and no JVD General: trachea midline Lymph Lymphatic: no lymphadenopathy noted and no lymphedema noted Resp normal respiratory effort, normal air movement and clear to auscultation bilaterally Cardio regular rate, regular rhythm, S1 normal heart sound, S2 normal heart sound and no murmurs GI normal to inspection, nondistended, normoactive bowel sounds, soft to palpation and non-tender Extremity normal capillary refill, no clubbing, cyanosis or edema and no calf tenderness General Extremity: no tenderness to palpation of joints or extremities Skin General Skin Exam: no breakdown Neuro CN's II-XII intact bilaterally, no focal motor deficits, no sensory deficits noted and deep tendon reflexes 2+ bilaterally Neuro Narrative: NIHSS is 0 at time of my review. Motor Exam: strength 5/5 throughout and general weakness Psych thought process normal, cooperative and affect normal Appearance: appropriate Results Lab / Micro Data 08/07/23 18:25 08/07/23 18:25 Labs: Laboratory Results - last 24 hr 08/07/23 18:25: WBC 7.7, RBC 4.25, Hgb 11.8 L, Hct 38.0, MCV 89.4, MCH 27.8, MCHC 31.1 L, RDW Std Deviation 45.1 H, RDW Coeff of Jaye 13.8, Plt Count 304, MPV 11.0, Immature Gran % (Auto) 0.400, Neut % (Auto) 61.1, Lymph % (Auto) 28.8, [place] % (Auto) 6.2, Eos % (Auto) 3.0, Baso % (Auto) 0.5, Absolute Neuts (auto) 4.7, Absolute Lymphs (auto) 2.22, Nucleated RBC % 0, PT 12.4, INR 0.9, APTT 26.8, Sodium 143, Potassium 3.9, Chloride 113 H, Carbon Dioxide 24.0, Anion Gap 6, BUN 43 H, Creatinine 1.82 H, Estim Creat Clear Calc 34.69, Est GFR (MDRD) Af Amer 35 L, Est GFR (MDRD) Non-Af 29 L, BUN/Creatinine Ratio 23.6 H, Glucose 119 H, Calcium 9.1, Troponin I High Sens 14 Imagaing Radiology Impression Brain CT 08/07/23 18:15 IMPRESSION: Normal Brain CT without contrast. Electronically Signed: Brenda Lee MD at 19:18 EST Reading Location ID and State: [facility] / [place] , Service support , Chest X-Ray 08/07/23 19:08 IMPRESSION: No acute cardiopulmonary disease. Electronically Signed: Brenda Lee MD at 19:24 EST , Assessment & Plan Assessment/Plan (1) Stroke-like symptoms: PLAN: Plan #Expressive aphasia to rule out a Stroke Started having expressive aphasia today but this resolved after few minutes. NIH stroke scale is 0. CT of the brain showed no acute intracranial pathology. Admit to PCU under stroke protocol. Get MRI of the brain. Get CT of the head and neck. P.o. aspirin. Check lipid panel and A1c. Get MRI of the brain tomorrow without contrast rule out a stroke. PT OT consult. Fall precautions. If expressive aphasia recurs, to get speech therapy evaluation. #Hypertension: Hold hydrochlorothiazide and losartan to allow for permissive hypertension until stroke is ruled out. #CKD stage 4: Creatinine is 1.82 with EGFR of 29. Will monitor. Will benefit from follow-up with nephrology on outpatient basis. DVT prophylaxis: Lovenox renally dosed CODE STATUS: Patient counseled extensively about different types of CODE STATUS including full code, DNR CCA and DNR CCA. Patient elects to be full code. Total [id number] time 17 minutes. Total time spent on evaluation and management of patient, reviewing chart and specialist notes, discussing plan with patient, discussion with nursing and ancillary staff as well as documentation: 48 mins Charges/Coding Visit Charges Inpatient E&M: 32291 Init Hosp L2 Procedures Hospitalists Procedures: 92035 Advncd Care Plan 30 Min
[2023-08-07 19:32] VITALS: BP 149/85; PULSE 75; RESP 14; O2SAT 99
--- NOTE | 2023-08-07 19:48 | EX.ED.DYSGE1 ---
HPI History of Present Illness Chief Complaint: Neuro S/Sx [facility] Medical History (Updated 08/07/23 @ 19:[address] Vandana Bishop MD) Benign paroxysmal positional vertigo CKD (chronic kidney disease) stage 3, GFR 30-59 ml/min Essential hypertension Non-rheumatic mitral valve stenosis Premature ventricular contraction Pulmonary hypertension Vertigo Home Medications hydrochlorothiazide 12.5 mg tablet 12.5 mg PO DAILY BLOOD PRESSURE 01/25/21 [History Last Taken Unknown] cyanocobalamin (vitamin B-12) 2,500 mcg sublingual tablet (Vitamin B-12) 2,500 mcg PO MOWEFR SUPPLEMENT 10/18/21 [History Last Taken Unknown] losartan 25 mg tablet 25 mg PO DAILY BLOOD PRESSURE 10/18/21 [History Last Taken Unknown] meclizine 25 mg tablet 25 mg PO TID PRN DIZZINESS #30 tabs 10/19/21 [Rx Last Taken Unknown] colchicine 0.6 mg tablet 0.6 mg PO BID GOUT 08/07/23 [History Last Taken Unknown] Allergy/AdvReac Type Severity Reaction Status Date / Time poison brandee extract Allergy Rash Verified 08/07/23 17:49 poison oak extract Allergy Rash Verified 08/07/23 17:49 Family History (Updated 01/25/21 @ 09:24 by Cassie Barbosa) Mother Diabetes Hypertension Surgical History History of cholecystectomy (~2008) Social History (Updated 01/25/21 @ 09:25 by Cassie Barbosa) Smoking Status: Never smoker alcohol intake: current details: occasional substance use type: does not use caffeine: Yes Type: carbonated beverages EXAM Physical Exam Const Vital Signs: 08/07/23 17:49 08/07/23 19:32 Temperature 97.8 F Temperature Source Oral Pulse Rate 90 75 Respiratory Rate 16 14 Blood Pressure 123/95 H 149/85 H Blood Pressure Mean 104 106 Pulse Ox 20 99 Oxygen Delivery Method Room Air Room Air MDM MDM MDM Narrative Medical decision making narrative: HISTORY OF PRESENT ILLNESS: 73-year-old female presents with transient difficulty talking. Notes this occurred approximately 5 PM on 08/07/2023. Notes approximate 5 minutes of difficulty speaking. Denies any recent head trauma. Denies any chest pain palpitations. Denies history of stroke. Notes history of elevated blood pressure. REVIEW OF SYSTEMS: Pertinent positives: Difficulty speaking Pertinent negatives: Focal weakness, slurred speech, chest pain, palpitations PHYSICAL EXAM: Nursing triage notes reviewed, Vital signs reviewed Constitutional: please see mdm HENT: MMM Eyes: Pupils equal round and reactive to light, Extraocular muscles intact Neck: No stridor, no JVD, full neck ROM Lungs: Clear to auscultation, No wheezing or rales. No increased work of breathing, no conversational dyspnea, no accessory muscle use, no nasal flaring. No respiratory distress noted Heart: Regular rate and rhythm, No murmurs, No rubs and No gallops, 2+ distal pulses (radial, femoral, posterior tibial) in all extremities Abdomen: Soft, there is no tenderness, rigidity, rebound or guarding, no obvious peritoneal signs, no palpable pulsatile abdominal masses, no auscultated abdominal bruit : No CVAT Extremities: No edema Neuro: Alert and oriented x3, neuro exam at baseline, cranial nerves II through XII are intact. No pain with extraocular muscle movement. There is negative test of skew. 5 of 5 strength in upper and lower extremities in flexion extension. Intact sensation to light touch in upper and lower extremity dermatomes. No truncal or extremity ataxia. No dysdiadochokinesia. Normal gait. 2+ reflexes in upper and lower extremities. No meningeal signs. Negative Babinski. NIH of 0. Skin: No rash or lesions noted MEDICAL DECISION MAKING: Chief Complaint: Transient difficulty speaking External records reviewed: Imaging reviewed: CT scan of the brain from September 2021 shows no acute abnormality Factors affecting care: hypertension Social determinants of health: Denies drug use History obtained from others: Patient's Consults: Radiology, internal medicine (Dr. Bishop) [facility] Narrative: The patient was hemodynamically stable, afebrile, nontoxic-appearing. Initial neuroexam was nonfocal. She had NIH of 0. She had a candidate for TNK or thrombectomy at this time given nonfocal neuroexam and NIH of 0 I considered the following differential diagnosis: TIA, CVA, focal seizure, ICH, arrhythmia I obtained a broad lab and imaging workup to further elucidate the etiology the patient complaint ALL IMAGES (IF OBTAINED) HAVE BEEN PERSONALLY REVIEWED AND INTERPRETED BY MYSELF. EKG with normal sinus rhythm, normal axis, normal intervals, no STEMI CT scan head was negative I have personally reviewed the patient's chest x-ray. Chest x-ray is unremarkable for pulmonary edema, pneumothorax, pneumonia or focal cardiopulmonary abnormality. CBC with no leukocytosis, anemia, no thrombocytopenia No coagulopathy BMP with CKD that is worsening from prior however no evidence of acute kidney injury, no electrolyte abnormalities High-sensitivity troponin is negative, no evidence of myocardial ischemia The synthesis of the patient's history, physical exam, labs images suggest likely TIA. Will admit for risk factor modification, MRI and further evaluation and neurologic consultation. Discussed with hospitalist The patient and/or family, caregivers express understanding. The patient and/or family, caregivers agrees with the plan. Shared decision making: I will have a discussion with the patient and or visitors regarding risk/benefits of further testing or admission. They will be made aware of of the risk/benefits inherent in this decision they will be given the opportunity to voice understanding. Total critical care time today provided was at least 0 minutes. This excludes separately billable procedures. Critical care time (if documented) is secondary to the patient having high probability of clinically significant/life threatening deterioration in the patient's condition which required my urgent intervention. Impression: 1. Transient difficulty speaking 2. CKD 3. History of hypertension Dispo: Admit to PCU observation Lab Data Labs: Laboratory Results - last 24 hr 08/07/23 18:25 WBC 7.7 RBC 4.25 Hgb 11.8 L Hct 38.0 MCV 89.4 MCH 27.8 MCHC 31.1 L RDW Std Deviation 45.1 H RDW Coeff of Jaye 13.8 Plt Count 304 MPV 11.0 Immature Gran % (Auto) 0.400 Neut % (Auto) 61.1 Lymph % (Auto) 28.8 [place] % (Auto) 6.2 Eos % (Auto) 3.0 Baso % (Auto) 0.5 Absolute Neuts (auto) 4.7 Absolute Lymphs (auto) 2.22 Nucleated RBC % 0 PT 12.4 INR 0.9 APTT 26.8 Sodium 143 Potassium 3.9 Chloride 113 H Carbon Dioxide 24.0 Anion Gap 6 BUN 43 H Creatinine 1.82 H Estim Creat Clear Calc 34.69 Est GFR (MDRD) Af Amer 35 L Est GFR (MDRD) Non-Af 29 L BUN/Creatinine Ratio 23.6 H Glucose 119 H Calcium 9.1 Troponin I High Sens 14 Radiography Diagnostic Testing: Clinical Impression(s) from Imaging Studies Brain CT 08/07/23 18:15 IMPRESSION: Normal Brain CT without contrast. Electronically Signed: Brenda Lee MD at 19:18 EST , ADDENDUM: 08/07/23 192 IMPRESSION: Normal Brain CT without contrast. N.B. : The above Results were Read Back by Brenda Lee MD to Christopher Gao DO, and understanding confirmed on 08/07/2023 19:22:22 (ET). Electronically Signed: Brenda Lee MD at 19:18 EST , Chest X-Ray 08/07/23 19:08 IMPRESSION: No acute cardiopulmonary disease. Electronically Signed: Brenda Lee MD at 19:24 EST , Discharge Plan Triage Chief Complaint: Neuro S/Sx ED Provider: Christopehr Gao Dx/Rx/DC Orders Prescriptions: No Action cyanocobalamin (vitamin B-12) [Vitamin B-12] 2,500 mcg tablet, sublingual 2,500 mcg PO MOWEFR losartan 25 mg tablet 25 mg PO DAILY meclizine 25 mg tablet 25 mg PO TID PRN (Reason: DIZZINESS ) Qty: 30 2RF colchicine 0.6 mg tablet 0.6 mg PO BID hydrochlorothiazide 12.5 mg tablet 12.5 mg PO DAILY Primary Care Provider: Patricia Becker Referrals: Patricia Becker DO [Primary Care Provider] -
[2023-08-07 20:00] VITALS: BP 144/95; PULSE 76; RESP 15; O2SAT 97
--- OUTSIDE RECORDS SUMMARY | 2023-08-07 20:18 | XMS RPT_ITS | CCD ---
Author Name Unknown Address [address] [place] [address] Organization [facility] Care Team Providers Care Phlebotomy Specialist Name Role Phone Troy Ovalle Unavailable Unavailable Makayla Agustin Unavailable Unavailable Troy Ovalle Unavailable Unavailable Troy Ovalle Unavailable Unavailable Makayla Agustin Unavailable Unavailable Troy Ovalle Unavailable Unavailable Makayla Agustin Unavailable Unavailable Troy Ovalle Unavailable Unavailable Patricia Becker Unavailable Makayla Agustin Unavailable Danielle Shah Unavailable Unavailable Senia Coe Unavailable Unavailable Unavailable Unavailable Paxton oCntreras Unavailable Gravius, Shaye Unavailable Unavailable Unavailable Unavailable Jannette Dooley Unavailable Unavailable Gravius, Shaye Unavailable Unavailable MessengerSenia Unavailable Unavailable Unavailable Unavailable Patricia Becker DO Unavailable Paxton Contreras Unavailable Makayla Agustin MD Unavailable Jannette Dooley LPN Unavailable Unavailable Gravius NUTRITION MANAGER, Shaye Unavailable Unavailable Messenger RN, Senia Unavailable Unavailable Unavailable Unavailable Guzman ELIAS, Yola Barney Unavailable Elijah Chaves LPN Unavailable Unavailable Unavailable Unavailable Jp PARSONS, Darrian Kingston Unavailable Edwina Braden LPN Unavailable Unavailable Nani Gonzales Unavailable Rosita HANNA Patricia Unavailable [phone] Makayla Agustin MD Unavailable Yola Hinds Unavailable Yola Hinds Unavailable Priscilla ALLEN, Meli Unavailable Unavailable Deedee Cruz CNP Unavailable [phone] Ludy HANNA , Dr. Donovan Dolan Unavailab le Patricia Becker DO Attending Unavailable Makayla Agustin MD Referring Unavailable Patricia Bceker DO Consulting Unavailable [facility] Unavailable Unavailable Medications Current Medications Medication Drug [...] Drug Class(es) Dates Sig (Normalized) Sig (Original) [id number] 200 actuat albuterol 0.09 mg/actuat metered dose [...] 04-14-2023 Office outpatient visit 25 minutes Patricia Beckre DO Work Phone: [facility] Start: [...] End: 10-08-2018 Office outpatient visit 40 minutes Patriica Becker [facility] Start: 04-23-2018 End: 04-24-2018 Patient encounter Troy Frandy Yamile Facility:[facility] Start: 04-23-2018 Patient encounter Facil [id number] Start: 04-16-2018 End: 04-17-2018 Patient encounter Troy Frandy Yamile Facility:[facility] Start: 04-16-2018 End: 04-17-2018 Patient encounter Troy Ovalle Facility:[facility] Start: 04-16-2018 Patient encounter Facil [id number] Start: 08-06-2017 End: 08-06-2017 Office outpatient visit 15 minutes Patricia Becker [facility] Start: 05-24-2017 End: 05-24-2017 Office outpatient visit 5 minutes Patricia Becker [facility] Start: 09-20-2016 End: 09-20-2016 Office outpatient visit 15 minutes Patricia Becker [facility] Start: 06-08-2016 End: 06-08-2016 Phone Encounter Patricia Becker [facility] Start: 04-18-2016 End: 04-18-2016 Office [...] Medicine Start: 11-13-2013 End: 11-13-2013 Annotation/Addendum Patricia Becker [facility] Start: 11-11-2013 End: 11-11-2013 Annotation/Addendum Patricia Becker [facility] Start: 11-02-2013 End: 11-02-2013 Office outpatient visit 15 minutes Patricia Becker [facility] Start: 10-05-2013 End: 10-05-2013 Office outpatient visit 15 minutes Patricia Becker [facility] Start: 09-29-2013 End: 09-29-2013 Patient encounter procedure Patricia Becker [facility] Start: 09-01-2013 End: 09-01-2013 Patient encounter procedure Patricia Becker [facility] Start: 07-10-2013 End: 07-10-2013 Annotation/Addendum Patricia Becker [facility] Start: 07-06-2013 End: 07-06-2013 Office outpatient visit 10 minutes Patricia Rosita [facility] Internal Medicine Start: 06-01-2013 End: 06-01-2013 Office outpatient visit 10 minutes Patricia Becker [facility] Internal Medicine Start: 05-18-2013 End: 05-18-2013 Annotation/Addendum Patricia Becker [facility] Start: 05-18-2013 End: 05-18-2013 Office outpatient visit 25 minutes Patricia Becker [facility] Internal Medicine Start: 06-23-2012 End: 06-23-2012 Patient encounter procedure Patricia Becker [facility] Start: 05-26-2012 End: 05-26-2012 Patient encounter procedure Patricia Becker [facility] Internal [facility] Procedures Date Procedure Procedure Detail Performing Clinician Start: 11-23-2021 End: 11-23-2021 Kidney and Bladder Comments: See Note; NOTES: [facility] Imaging Services [address] [place] [address] Kidney and Bladder MR#: [id number] Acct: [id number] Name: VERONICA COOK Rep #: [id number] : 1950 F 71 From: Ozzy Luz PCP: Dr. Patricia Becker DO Status: REG CLI Study: Kidney and Bladder Date of Exam: 11/23/21 Exam# [id number] Ordering Dr: Nani Gonzales DO STUDY: RENAL [...] Nani Gonzales DO; Dr. Patricia Becker DO Senior Lead Java Developer: Signed Patricia Becker DO Work Phone: Start: 05-22-2021 End: 10-25-2021 Breast Limited Unilateral Comments: See Note; NOTES: [facility] Imaging Services [address] [place] [address] Breast Limited Unilateral MR#: [id number] Acct: [id number] Name: VERONICA COOK Rep #: [id number] : 1950 F 71 From: Bishnu neville MD PCP: Dr. Patricia Becker DO Status: REG CLI Study: Breast Limited Unilateral Date of Exam: Exam# [id number] Ordering Dr: Yola Hinds NP FULFILLMENT COORDINATOR-C STUDY: ULTRASOUND BREAST - RIGHT REASON [...] CC: RAISSA Hinds; Dr. Patricia Becker DO Senior Lead Java Developer: Signed Yola Hinds CALENDER WIND UP HELPER Work Phone: Start: 05-18-2021 End: 05-19-2021 Dexa Bone Density Study Comments: See Note; NOTES: [facility] Imaging Services [address] [place] [address] Dexa Bone Density Study MR#: [id number] Acct: [id number] Name: VERONICA COOK Rep #: [id number] : 1950 F 71 From: Bishnu neville MD PCP: Dr. Patricia Becker, DO Status: [facility] CLI Study: Dexa Bone Density Study Date of Exam: 05/18/21 Exam# [id number] Ordering Dr: Yola Hinds FULFILLMENT COORDINATOR FULFILLMENT COORDINATOR-C STUDY: DUAL ENERGY X-RAY ABSORPTIOMETRY / [...] CC: RAISSA Hinds; Dr. Patricia Becker DO Senior Lead Java Developer: Signed Yola Hinds [facility] Work Phone: Start: 05-18-2021 End: 05-19-2021 SCRN MAMM (CAD)W/EARLINE BILAT Comments: See Note; NOTES: [facility] Imaging Services [address] [place] [address] SCRN MAMM (CAD)W/EARLINE BILAT MR#: [id number] Acct: [id number] Name: VERONICA COOK Rep #: [id number] : 1950 F 71 From: Bishnu neville MD PCP: Dr. Patricia Becker DO Status: [facility] Study: SCRN MAMM (CAD)W/EARLINE BILAT Date of Exam: 04/29 08/18 Exam# [id number] Ordering Dr: Yola Hinds NP FULFILLMENT COORDINATOR-C MAMMOGRAPHY - BILATERAL SCREENING REASON FOR [...] delay biopsy of a clinically suspicious abnormality. [id number] Electronically Signed: Bishnu Almanzar MD at 15:06 EDT , Service support , CC: RAISSA Hinds; Dr. Patricia Becker DO Senior Lead Java Developer: Signed Yola Hinds [facility] Work Phone: Start: 01-12-2021 End: 2021 Abdomen/Pelvis without Cont Comments: See Note; NOTES: [facility] Imaging Services [address] [place] [address] Abdomen/Pelvis without Cont MR#: [id number] Acct: [id number] Name: VERONICA COOK Rep #: [id number] : 1950 F 70 From: Bishnu neville MD PCP: Dr. Patricia Becker, DO Status: REG CLI Study: Abdomen/Pelvis without Cont Date of Exam: 12/27 02/15 Exam# [id number] Ordering Dr: Rosaura Prather MD STUDY: CT [...] Rosaura Prather MD; Dr. Patricia Becker DO Senior Lead Java Developer: Signed Patricia Becker DO Work Phone: Start: 05-05-2019 End: 05-05-2019 Operative Report Comments: See Note; NOTES: [facility] Medical Records Department [address] [place] [address] Operative Report 05/05/19 0856 MR#: [id number] Acct: [id number] Name: VERONICA COOK Rep #: [id number] : 1950 69 From: Rosaura Prather MD PCP: Patricia Becker DO Status: [facility] Y Location: [place] [address] Problem List (1) Migration of ureteral stent [...] 05-05-2019 Discharge Instruction Comments: See Note; NOTES: [facility] Medical Records Department [address] [place] [address] Instructions for Home/Discharge Instructions 05/05/19 0859 MR#: [id number] Acct: [id number] Name: JOYCEVERONICA K Rep #: [id number] : 1950 69 From: Rosaura Prather MD PCP: Patricia Becker DO Status: REG [facility] Discharge Diet: No Restrictions Discharge Activity: Return [...] Abdomen Single View Comments: See Note; NOTES: [facility] Imaging Services [address] [place] [address] Abdomen Single View MR#: [id number] Acct: [id number] Name: VERONICA COOK Rep #: [id number] : 1950 F 69 From: Alberto Mcintosh MD PCP: Patricia Becker DO Status: REG CLI Study: Abdomen Single View Date of Exam: 04/29/19 Exam# [id number] Ordering Dr: Rosaura Prather MD STUDY: X-RAY [...] CC: Rosaura Prather MD; Patricia Becker DO Senior Lead Java Developer: Signed Patricia Becker Start: 04-21-2019 End: 04-21-2019 Operative Report Comments: See Note; NOTES: [facility] Medical Records Department [address] [place] [address] Operative Report 04/21/19 1031 MR#: [id number] Acct: [id number] Name: VERONICA COOK Rep #: [id number] : 1950 69 From: Rosaura Prather MD PCP: Patricia Becker DO Status: REG SDC Y Location: [place] [address] Problem List (1) Calculus of kidney with [...] injuries. Using the safety wire, a 7 Azeri 24 cm double-J stent was inserted without [...] prophylaxis not ordered:: Treatment Not Indicated 04/21/19 7340 <Electronically signed by Rosaura Prather MD> Date Rosaura Prather MD CC: Rosaura Prather MD; Patricia Becker DO Signed Patricia Becker Start: 04-21-2019 End: 04-21-2019 Discharge Instruction Comments: See Note; NOTES: [facility] Medical Records Department [address] [place] [address] Instructions for Home/Discharge Instructions 04/21/19 1030 MR#: [id number] Acct: [id number] Name: VERONICA COOK Rep #: [id number] : 1950 69 From: Rosaura Prather MD PCP: Patricia Becker DO Status: REG MAC Discharge Diet: No Restrictions Discharge Activity: May [...] Abdomen Single View Comments: See Note; NOTES: [facility] Imaging Services [address] [place] [address] Abdomen Single View MR#: [id number] Acct: [id number] Name: VERONICA COOK Rep #: [id number] : 1950 F 69 From: Augusto Salazar MD PCP: Patricia Becker DO Status: REG CLI Study: Abdomen Single View Date of Exam: 04/13/19 Exam# [id number] Ordering Dr: Rosaura Prather MD STUDY: X-RAY [...] CC: Rosaura Prather MD; Patricia Becker DO Senior Lead Java Developer: Signed Patricia Becker Start: 03-24-2019 End: 03-24-2019 Operative Report Comments: See Note; NOTES: [facility] Medical Records Department [address] [place] [address] Operative Report 03/24/19 0751 MR#: [id number] Acct: [id number] Name: VERONICA COOK Rep #: [id number] : 1950 69 From: Rosaura Prather MD PCP: Patricia Becker DO Status: REG SD Y Location: [place] [address] Problem List (1) Left renal stone Status: [...] Glidewire was inserted without difficulty. A 6 Azeri 24 cm double-J stent was passed and had good positioning in the renal pelvis as well as the urinary bladder. There were no complications during the procedure. She was taken to the recovery room in good condition. Type of Anesthesia:: General Description of Procedure: The stone was well fragmented at the conclusion of 3000 shocks. A 6 Azeri 24 cm double-J stent was used. Grafts/Implants Used: [id number] JJ stent - Complications none - Admit VTE Documentation VTE Present on Admission: Yes VTE Mechan Device Prophylaxis: SCD's VTE Pharm Prophylaxis ordered?: No Reason prophylaxis not ordered:: Treatment Not Indicated 03/24/19 1012 <Electronically signed by Rosaura Prather MD> Date Rosaura Prather MD CC: Rosaura Prather MD; Patricia Becker DO Signed Patricia Becker Start: 03-24-2019 End: 03-24-2019 Discharge Instruction Comments: See Note; NOTES: [facility] Medical Records Department [address] [place] [address] Instructions for Home/Discharge Instructions 03/24/19 0753 MR#: [id number] Acct: [id number] Name: VERONICA COOK Rep #: [id number] : 1950 69 From: Rosauar Prather MD PCP: Patricia Becker DO Status: REG [facility] Discharge Diet: No Restrictions Discharge Activity: May [...] Abdomen Single View Comments: See Note; NOTES: [facility] Imaging Services [address] [place] [address] Abdomen Single View MR#: [id number] Acct: [id number] Name: VERONICA COOK Rep #: [id number] : 1950 F 69 From: Trell Ramirez DO PCP: Patricia Becker DO Status: REG CLI Study: Abdomen Single View Date of Exam: 03/11/19 Exam# [id number] Ordering Dr: Rosaura Prather MD STUDY: X-RAY [...] Trell Ramirez DO at 18:04 EDT Tel [phone], Service support , CC: Rosaura Prather MD; Patricia Becker DO Senior Lead Java Developer: Signed Patricia Becker Start: 11-04-2018 End: 11-04-2018 TXT - Blood Flow Screening Comments: See Note; NOTES: [facility] Cardiovascular Services [address] [place] [address] 11/04/18 0950 MR#: [id number] Acct: [id number] Name: VERONICA COOK Rep #: [id number] : 1950 68 From: Paxton Zurita MD Attending Dr: Patricia Becker DO Status: REG REF Ordering Dr: Date: 11/04/18 Location: [facility] Sex: F C Admitted: Reason For [...] Dictated: 11/04/18 0950 Date Transcribed: 11/04/18 1602 Senior Lead Java Developer: Signed Patricia Becker Start: 09-30-2018 End: 09-30-2018 Emergency Department Summary Comments: See Note; NOTES: [facility] Medical Records Department [address] [place] [address] Emergency Department Summary 09/30/181957 MR#: [id number] Acct: [id number] Name: VERONICA COOK Rep #: [id number] : 1950 68 From: Shannon Perdue MD [...] no illnesses no history of stroke seizure [place] or PE hypertension is well controlled Physical [...] Intractable vertigo This note was generated with [employer] dictation software. It may contain incorrect words, spelling, and punctuation that were not noted in review of the chart prior to signing ED Disposition - Plan for ED Patient: Referrals: Patricia eBcker, DO [Primary Care Provider] - What to do if you have Problems For any increased pain, shortness of breath, bleeding, nausea or vomiting, chest pain, or any unexpected problems, contact your Primary Care Provider. Call [facility] ([phone]) or report to the closest Emergency Room. Call 911 if necessary. 09/30/18 6419 <Electronically signed by Shannon Perdue MD> Date Shannon Perdue MD Cosigner Signature (If Indicated): Date CC: Patricia Lewis Start: 09-30-2018 End: 09-30-2018 Brain/Head without Contrast Comments: See Note; NOTES: [facility] Imaging Services [address] [place] [address] Brain/Head without Contrast MR#: [id number] Acct: [id number] Name: VERONICA COOK Rep #: [id number] : 1950 F 68 From: Conor Grijalva MD PCP: Patricia Becker DO Status: REG ER Study: Brain/Head without Contrast Date of Exam: 09/30/18 Exam# [id number] Ordering Dr: Shannon Perdue MD STUDY: CT [...] CC: MD Grisel Perdue; Patricia Becker DO Senior Lead Java Developer: Signed Patricia Becker Start: 04-17-2016 End: 04-17-2016 Abdomen Single View Comments: See Note; NOTES: [facility] Imaging Services [address] [place] [address] Verdana 4d Abdomen Single View MR#: [id number] Acct: [id number] Name: VERONICA COOK Rep #: [id number] : 1950 F 66 From: Trell Ramirez DO PCP: Makayla Agustin MD Status: REG CLI Study: Abdomen Single View Date of Exam: 04/17/16 Exam# [id number] Ordering Dr: Julio Suarez MD STUDY: X-RAY [...] Trell Ramirez DO at 16:50 EDT Tel [phone], Service support [phone], CC: Makayla Agustin MD; Julio Suarez MD Senior Lead Java Developer: Signed Patricia Becker Start: 04-15-2015 End: 04-15-2015 Abdomen/Pelvis without Cont Comments: See Note; NOTES: [facility] Imaging Services [address] [place] [address] CAT Scan Report MR#: [id number] Acct: [id number] Name: VERONICA COOK Rep #: [id number] : 1950 F 65 From: Bishnu Almanzar MD PCP: Makayla Agustin MD Status: REG CLI Study: Abdomen/Pelvis without Cont Date of Exam: 04/15/15 Exam# [id number] Ordering Dr: Julio Suarez MD STUDY: CT [...] Bishnu Almanzar MD at 15:39 EDT Tel [phone], Service support [phone], CC: Makayla Agustin MD; Julio Suarez MD Senior Lead Java Developer: Signed Patricia Becker Start: 04-14-2015 End: 04-14-2015 [...] 02-25-2023 Cyanocobalamin vitamin b-12 VITAMIN B-12 (CYANOCOBALAMIN) (37337) [facility]; [facility] Work Phone: Start: 02-25-2023 Assay of thyroid stimulating hormone tsh TSH (THYROID STIMULATING HORMONE) (58661) [facility]; [facility] Work Phone: Start: 02-25-2023 25 hydroxy includes fractions if performed CALCIFEDIOL (27195) [facility]; [facility] Work Phone: Start: 02-25-2023 Urine albumin quantitative MICROALBUMIN: CREATININE RATIO (16743) AND (11960) [facility]; [facility] Work Phone: Start: 02-25-2023 Comprehensive metabolic panel METABOLIC PANEL, COMPREHENSIVE (31855) [facility]; [facility] Work Phone: Start: 02-25-2023 Lipid panel LIPID PANEL (41251) [facility]; [facility] Work Phone: Start: 02-25-2023 Blood count complete auto&auto difrntl wbc CBC with auto diff (45960) [facility]; [facility] Work Phone: Start: 02-25-2023 Gluc bld gluc mntr dev cleared fda spec home use Blood Glucose , Office (20647) [facility]; [facility] Work Phone: Start: 02-25-2023 Hemoglobin glycosylated a1c HgA1C , Office (59898) [facility]; [facility] Work [...] 01-24-2022 Cyanocobalamin vitamin b-12 VITAMIN B-12 (CYANOCOBALAMIN) (18531) [facility]; [facility] Work Phone: Start: 01-24-2022 25 hydroxy includes fractions if performed CALCIFIDIOL (59402) VIT D 25 [facility]; [facility] Work Phone: Start: 01-24-2022 Assay of thyroid stimulating hormone tsh TSH (50347) [facility]; [facility] Work Phone: Start: 01-24-2022 Urnls dip stick/tablet reagent auto microscopy URINALYSIS, W/ MICRO (46385) [facility]; [facility] Work Phone: Start: 01-24-2022 Urine albumin quantitative MICROALBUMIN: CREATININE RATIO (13050) AND (02580) [facility]; [facility] Work Phone: Start: 01-24-2022 Comprehensive metabolic panel METABOLIC PANEL, COMPREHENSIVE (81726) [facility]; [facility] Work Phone: Start: 01-24-2022 Lipid panel LIPID PANEL (45716) [facility]; [facility] Work Phone: Start: 01-24-2022 Blood count complete auto&auto difrntl wbc CBC W/AUTO DIFF WBC (19068) [facility]; [facility] Work Phone: Start: 10-24-2021 Procedure Education Eprescribed prescriptions (G8553) [facility]; [facility] Work Phone: Start: 10-24-2021 Provider Instructions for Treatment Follow up in 3 months with [facility]; [facility] Work Phone: Start: 10-24-2021 Blood occult fecal hgb deter ia qual feces 1-3 FECAL OCCULT- Tubes sent home (51373) [facility]; [facility] Work Phone: Start: 06-28-2021 Comprehensive metabolic panel Metabolic Panel, Comprehensive (79645) [facility]; [facility] Work [...] feces 1-3 FECAL OCCULT- Tubes sent home (45753) [facility]; [facility] Work Phone: Start: 04-19-2021 Cyanocobalamin vitamin b-12 VITAMIN B12 AND FOLATES (48927) [facility]; [facility] Work Phone: Start: 04-19-2021 Urine albumin quantitative MICROALBUMIN: CREATININE RATIO (47130) AND (65417) [facility]; [facility] Work Phone: Start: 04-19-2021 Comprehensive metabolic panel Metabolic Panel, Comprehensive (56089) [facility]; [facility] Work Phone: Start: 01-17-2021 Procedure Education Eprescribed prescriptions (G8553) [facility]; [facility] Work Phone: Start: 01-17-2021 Provider Instructions for Treatment [facility]; [facility] Work Phone: Start: 01-04-2021 Renal function panel RENAL FUNCTION PANEL (67827) [facility]; [facility] Work Phone: Payers Date Payer Category Payer Medicare [id number] 2021 Unknown [id number] 2018 Medicare 2017 Unknown [id number] 2014 Medicare [id number] 2014 Unknown [id number] 1950 Unknown [id number] Medicare [id number] Unknown Social History Date Type Detail Facility [...] Informa tion Online using Patient Portal and Navionics Apps Indication:HTN (hypertension), benign Start:09-Dec-2020 Instruction Type:Patient [...] Informa tion Online using Patient Portal and [employer] Apps Indication:HTN (hypertension), benign Start:09-Dec-2020 Instruction Type:Patient [...] tion Online using Patient Portal and 3[employer] Democrat Apps Indication:JESUS (obstructive sleep apnea) Start:16-Dec-2020 Instruction Type:Patient Education Patient Instructions Indication:Non-smoker Start:09-Dec-2020 Instruction Type:Provider Instructions for Treatment How to Access Health Informa tion Online using Patient Portal and [employer] Apps Indication:HTN (hypertension), benign Start:09-Dec-2020 Instruction Type:Patient [...] Informa tion Online using Patient Portal and [employer] Apps Indication:JESUS (obstructive sleep apnea) Start:16-Dec-2020 Instruction Type:Patient Education Patient Instructions Indication:Non-smoker Start:09-Dec-2020 Instruction Type:Provider Instructions for Treatment How to Access Health Informa tion Online using Patient Portal and [employer] Apps Indication:HTN (hypertension), benign Start:09-Dec-2020 Instruction Type:Patient [...] Informa tion Online using Patient Portal and [employer] Apps Indication:JESUS (obstructive sleep apnea) Start:16-Dec-2020 Instruction Type:Patient Education Patient Instructions Indication:Non-smoker Start:09-Dec-2020 Instruction Type:Provider Instructions for Treatment How to Access Health Informa tion Online using Patient Portal and [employer] Apps Indication:HTN (hypertension), benign Start:09-Dec-2020 Instruction Type:Patient [...] tion Online using Patient Portal and [employer] Apps Indication:JESUS (obstructive sleep apnea) Start:16-Dec-2020 Instruction Type:Patient Education Patient Instructions Indication:Non-smoker Start:09-Dec-2020 Instruction Type:Provider Instructions for Treatment How to Access Health Informa tion Online using Patient Portal and [employer] Apps Indication:HTN (hypertension), benign Start:09-Dec-2020 Instruction Type:Patient [...] tion Online using Patient Portal and [employer] Apps Indication:Non-smoker Start:17-Jan-2021 Instruction Type:Patient Education Patient Instructions Indication:CKD stage G3b/A1, GFR 30-44 and albumin creatinine ratio <30 mg/g Start:16-Dec-2020 Instruction Type:Provider Instructions for Treatment How to Access Health Informa tion Online using Patient Portal and [employer] Apps Indication:JESUS (obstructive sleep apnea) Start:16-Dec-2020 Instruction Type:Patient Education Patient Instructions Indication:Non-smoker Start:09-Dec-2020 Instruction Type:Provider Instructions for Treatment How to Access Health Informa tion Online using Patient Portal and [employer] Apps Indication:HTN (hypertension), benign Start:09-Dec-2020 Instruction Type:Patient [...] Informa tion Online using Patient Portal and [employer] Apps Indication:Non-smoker Start:17-Jan-2021 Instruction Type:Patient Education Patient Instructions Indication:CKD stage G3b/A1, GFR 30-44 and albumin creatinine ratio <30 mg/g Start:16-Dec-2020 Instruction Type:Provider Instructions for Treatment How to Access Health Informa tion Online using Patient Portal and [employer] Apps Indication:JESUS (obstructive sleep apnea) Start:16-Dec-2020 Instruction Type:Patient Education Patient Instructions Indication:Non-smoker Start:09-Dec-2020 Instruction Type:Provider Instructions for Treatment How to Access Health Informa tion Online using Patient Portal and [employer] Apps Indication:HTN (hypertension), benign Start:09-Dec-2020 Instruction Type:Patient [...] tion Online using Patient Portal and [employer] Apps Indication:BMI 39.0-39.9,adult Start:30-May-2021 Instruction Type:Patient Education Patient Instructions Indication:Encounter for screening for malignant neoplasm of colon (Renamed from Special screening for malignant neoplasms, colon) Start:25-Apr-2021 Instruction Type:Provider Instructions for Treatment How to Access Health Informa tion Online using Patient Portal and [employer] Apps Indication:Non-smoker Start:25-Apr-2021 Instruction Type:Patient Education Patient Instructions Indication:Non-smoker Start:17-Jan-2021 Instruction Type:Provider Instructions for Treatment How to Access Health Informa tion Online using Patient Portal and [employer] Apps Indication:Non-smoker Start:17-Jan-2021 Instruction Type:Patient Education Patient Instructions Indication:CKD stage G3b/A1, GFR 30-44 and albumin creatinine ratio <30 mg/g Start:16-Dec-2020 Instruction Type:Provider Instructions for Treatment How to Access Health Informa tion Online using Patient Portal and [employer] Apps Indication:JESUS (obstructive sleep apnea) Start:16-Dec-2020 Instruction Type:Patient Education Patient Instructions Indication:Non-smoker Start:09-Dec-2020 Instruction Type:Provider Instructions for Treatment How to Access Health Informa tion Online using Patient Portal and [employer] Apps Indication:HTN (hypertension), benign Start:09-Dec-2020 Instruction Type:Patient [...] Informa tion Online using Patient Portal and [employer] Apps Indication:BMI 39.0-39.9,adult Start:30-May-2021 Instruction Type:Patient Education Patient Instructions Indication:Encounter for screening for malignant neoplasm of colon (Renamed from Special screening for malignant neoplasms, colon) Start:25-Apr-2021 Instruction Type:Provider Instructions for Treatment How to Access Health Informa tion Online using Patient Portal and [employer] Apps Indication:Non-smoker Start:25-Apr-2021 Instruction Type:Patient Education Patient Instructions Indication:Non-smoker Start:17-Jan-2021 Instruction Type:Provider Instructions for Treatment How to Access Health Informa tion Online using Patient Portal and [employer] Apps Indication:Non-smoker Start:17-Jan-2021 Instruction Type:Patient Education Patient Instructions Indication:CKD stage G3b/A1, GFR 30-44 and albumin creatinine ratio <30 mg/g Start:16-Dec-2020 Instruction Type:Provider Instructions for Treatment How to Access Health Informa tion Online using Patient Portal and [employer] Apps Indication:JESUS (obstructive sleep apnea) Start:16-Dec-2020 Instruction Type:Patient Education Patient Instructions Indication:Non-smoker Start:09-Dec-2020 Instruction Type:Provider Instructions for Treatment How to Access Health Informa tion Online using Patient Portal and [employer] Apps Indication:HTN (hypertension), benign Start:09-Dec-2020 Instruction Type:Patient [...] tion Online using Patient Portal and [employer] Apps Indication:BMI 39.0-39.9,adult Start:24-Oct-2021 Instruction Type:Patient Education Patient Instructions Indication:BMI 39.0-39.9,adult Start:30-May-2021 Instruction Type:Provider Instructions for Treatment How to Access Health Informa tion Online using Patient Portal and [employer] Apps Indication:BMI 39.0-39.9,adult Start:30-May-2021 Instruction Type:Patient Education Patient Instructions Indication:Encounter for screening for malignant neoplasm of colon (Renamed from Special screening for malignant neoplasms, colon) Start:25-Apr-2021 Instruction Type:Provider Instructions for Treatment How to Access Health Informa tion Online using Patient Portal and [employer] Apps Indication:Non-smoker Start:25-Apr-2021 Instruction Type:Patient Education Patient Instructions Indication:Non-smoker Start:17-Jan-2021 Instruction Type:Provider Instructions for Treatment How to Access Health Informa tion Online using Patient Portal and [employer] Apps Indication:Non-smoker Start:17-Jan-2021 Instruction Type:Patient Education Patient Instructions Indication:CKD stage G3b/A1, GFR 30-44 and albumin creatinine ratio <30 mg/g Start:16-Dec-2020 Instruction Type:Provider Instructions for Treatment How to Access Health Informa tion Online using Patient Portal and [employer] Apps Indication:JESUS (obstructive sleep apnea) Start:16-Dec-2020 Instruction Type:Patient Education Patient Instructions Indication:Non-smoker Start:09-Dec-2020 Instruction Type:Provider Instructions for Treatment How to Access Health Informa tion Online using Patient Portal and [employer] Apps Indication:HTN (hypertension), benign Start:09-Dec-2020 Instruction Type:Patient [...] tion Online using Patient Portal and [employer] Apps Indication:Impaired fasting glucose Start:24-Jan-2022 Instruction Type:Patient Education Patient Instructions Indication:BMI 39.0-39.9,adult Start:24-Oct-2021 Instruction Type:Provider Instructions for Treatment How to Access Health Informa tion Online using Patient Portal and [employer] Apps Indication:BMI 39.0-39.9,adult Start:24-Oct-2021 Instruction Type:Patient Education Patient Instructions Indication:BMI 39.0-39.9,adult Start:30-May-2021 Instruction Type:Provider Instructions for Treatment How to Access Health Informa tion Online using Patient Portal and [employer] Apps Indication:BMI 39.0-39.9,adult Start:30-May-2021 Instruction Type:Patient Education Patient Instructions Indication:Encounter for screening for malignant neoplasm of colon (Renamed from Special screening for malignant neoplasms, colon) Start:25-Apr-2021 Instruction Type:Provider Instructions for Treatment How to Access Health Informa tion Online using Patient Portal and [employer] Apps Indication:Non-smoker Start:25-Apr-2021 Instruction Type:Patient Education Patient Instructions Indication:Non-smoker Start:17-Jan-2021 Instruction Type:Provider Instructions for Treatment How to Access Health Informa tion Online using Patient Portal and [employer] Apps Indication:Non-smoker Start:17-Jan-2021 Instruction Type:Patient Education Patient Instructions Indication:CKD stage G3b/A1, GFR 30-44 and albumin creatinine ratio <30 mg/g Start:16-Dec-2020 Instruction Type:Provider Instructions for Treatment How to Access Health Informa tion Online using Patient Portal and [employer] Apps Indication:JESUS (obstructive sleep apnea) Start:16-Dec-2020 Instruction Type:Patient Education Patient Instructions Indication:Non-smoker Start:09-Dec-2020 Instruction Type:Provider Instructions for Treatment How to Access Health Informa tion Online using Patient Portal and [employer] Apps Indication:HTN (hypertension), benign Start:09-Dec-2020 Instruction Type:Patient [...] tion Online using Patient Portal and [employer] Apps Indication:Impaired fasting glucose Start:24-Jan-2022 Instruction Type:Patient Education Patient Instructions Indication:BMI 39.0-39.9,adult Start:24-Oct-2021 Instruction Type:Provider Instructions for Treatment How to Access Health Informa tion Online using Patient Portal and [employer] Apps Indication:BMI 39.0-39.9,adult Start:24-Oct-2021 Instruction Type:Patient Education Patient Instructions Indication:BMI 39.0-39.9,adult Start:30-May-2021 Instruction Type:Provider Instructions for Treatment How to Access Health Informa tion Online using Patient Portal and [employer] Apps Indication:BMI 39.0-39.9,adult Start:30-May-2021 Instruction Type:Patient Education Patient Instructions Indication:Encounter for screening for malignant neoplasm of colon (Renamed from Special screening for malignant neoplasms, colon) Start:25-Apr-2021 Instruction Type:Provider Instructions for Treatment How to Access Health Informa tion Online using Patient Portal and [employer] Apps Indication:Non-smoker Start:25-Apr-2021 Instruction Type:Patient Education Patient Instructions Indication:Non-smoker Start:17-Jan-2021 Instruction Type:Provider Instructions for Treatment How to Access Health Informa tion Online using Patient Portal and [employer] Apps Indication:Non-smoker Start:17-Jan-2021 Instruction Type:Patient Education Patient Instructions Indication:CKD stage G3b/A1, GFR 30-44 and albumin creatinine ratio <30 mg/g Start:16-Dec-2020 Instruction Type:Provider Instructions for Treatment How to Access Health Informa tion Online using Patient Portal and [employer] Apps Indication:JESUS (obstructive sleep apnea) Start:16-Dec-2020 Instruction Type:Patient Education Patient Instructions Indication:Non-smoker Start:09-Dec-2020 Instruction Type:Provider Instructions for Treatment How to Access Health Informa tion Online using Patient Portal and [employer] Apps Indication:HTN (hypertension), benign Start:09-Dec-2020 Instruction Type:Patient [...] tion Online using Patient Portal and [employer] Apps Indication:Non-smoker Start:05-Feb-2022 Instruction Type:Patient Education Patient Instructions Indication:Impaired fasting glucose Start:24-Jan-2022 Instruction Type:Provider Instructions for Treatment How to Access Health Informa tion Online using Patient Portal and [employer] Apps Indication:Impaired fasting glucose Start:24-Jan-2022 Instruction Type:Patient Education Patient Instructions Indication:BMI 39.0-39.9,adult Start:24-Oct-2021 Instruction Type:Provider Instructions for Treatment How to Access Health Informa tion Online using Patient Portal and [employer] Apps Indication:BMI 39.0-39.9,adult Start:24-Oct-2021 Instruction Type:Patient Education Patient Instructions Indication:BMI 39.0-39.9,adult Start:30-May-2021 Instruction Type:Provider Instructions for Treatment How to Access Health Informa tion Online using Patient Portal and [employer] Apps Indication:BMI 39.0-39.9,adult Start:30-May-2021 Instruction Type:Patient Education Patient Instructions Indication:Encounter for screening for malignant neoplasm of colon (Renamed from Special screening for malignant neoplasms, colon) Start:25-Apr-2021 Instruction Type:Provider Instructions for Treatment How to Access Health Informa tion Online using Patient Portal and [employer] Apps Indication:Non-smoker Start:25-Apr-2021 Instruction Type:Patient Education Patient Instructions Indication:Non-smoker Start:17-Jan-2021 Instruction Type:Provider Instructions for Treatment How to Access Health Informa tion Online using Patient Portal and [employer] Apps Indication:Non-smoker Start:17-Jan-2021 Instruction Type:Patient Education Patient Instructions Indication:CKD stage G3b/A1, GFR 30-44 and albumin creatinine ratio <30 mg/g Start:16-Dec-2020 Instruction Type:Provider Instructions for Treatment How to Access Health Informa tion Online using Patient Portal and [employer] Apps Indication:JESUS (obstructive sleep apnea) Start:16-Dec-2020 Instruction Type:Patient Education Patient Instructions Indication:Non-smoker Start:09-Dec-2020 Instruction Type:Provider Instructions for Treatment How to Access Health Informa tion Online using Patient Portal and [employer] Apps Indication:HTN (hypertension), benign Start:09-Dec-2020 Instruction Type:Patient [...] tion Online using Patient Portal and [employer] Apps Indication:Non-smoker Start:22-Feb-2022 Instruction Type:Patient Education Patient Instructions Indication:Non-smoker Start:05-Feb-2022 Instruction Type:Provider Instructions for Treatment How to Access Health Informa tion Online using Patient Portal and [employer] Apps Indication:Non-smoker Start:05-Feb-2022 Instruction Type:Patient Education Patient Instructions Indication:Impaired fasting glucose Start:24-Jan-2022 Instruction Type:Provider Instructions for Treatment How to Access Health Informa tion Online using Patient Portal and [employer] Apps Indication:Impaired fasting glucose Start:24-Jan-2022 Instruction Type:Patient Education Patient Instructions Indication:BMI 39.0-39.9,adult Start:24-Oct-2021 Instruction Type:Provider Instructions for Treatment How to Access Health Informa tion Online using Patient Portal and [employer] Apps Indication:BMI 39.0-39.9,adult Start:24-Oct-2021 Instruction Type:Patient Education Patient Instructions Indication:BMI 39.0-39.9,adult Start:30-May-2021 Instruction Type:Provider Instructions for Treatment How to Access Health Informa tion Online using Patient Portal and [employer] Apps Indication:BMI 39.0-39.9,adult Start:30-May-2021 Instruction Type:Patient Education Patient Instructions Indication:Encounter for screening for malignant neoplasm of colon (Renamed from Special screening for malignant neoplasms, colon) Start:25-Apr-2021 Instruction Type:Provider Instructions for Treatment How to Access Health Informa tion Online using Patient Portal and [employer] Apps Indication:Non-smoker Start:25-Apr-2021 Instruction Type:Patient Education Patient Instructions Indication:Non-smoker Start:17-Jan-2021 Instruction Type:Provider Instructions for Treatment How to Access Health Informa tion Online using Patient Portal and [employer] Apps Indication:Non-smoker Start:17-Jan-2021 Instruction Type:Patient Education Patient Instructions Indication:CKD stage G3b/A1, GFR 30-44 and albumin creatinine ratio <30 mg/g Start:16-Dec-2020 Instruction Type:Provider Instructions for Treatment How to Access Health Informa tion Online using Patient Portal and [employer] Apps Indication:JESUS (obstructive sleep apnea) Start:16-Dec-2020 Instruction Type:Patient Education Patient Instructions Indication:Non-smoker Start:09-Dec-2020 Instruction Type:Provider Instructions for Treatment How to Access Health Informa tion Online using Patient Portal and [employer] Apps Indication:HTN (hypertension), benign Start:09-Dec-2020 Instruction Type:Patient [...] tion Online using Patient Portal and [employer] Apps Indication:Morbid obesity Start:08-Mar-2022 Instruction Type:Patient Education Patient Instructions Indication:Non-smoker Start:22-Feb-2022 Instruction Type:Provider Instructions for Treatment How to Access Health Informa tion Online using Patient Portal and [employer] Apps Indication:Non-smoker Start:22-Feb-2022 Instruction Type:Patient Education Patient Instructions Indication:Non-smoker Start:05-Feb-2022 Instruction Type:Provider Instructions for Treatment How to Access Health Informa tion Online using Patient Portal and [employer] Apps Indication:Non-smoker Start:05-Feb-2022 Instruction Type:Patient Education Patient Instructions Indication:Impaired fasting glucose Start:24-Jan-2022 Instruction Type:Provider Instructions for Treatment How to Access Health Informa tion Online using Patient Portal and [employer] Apps Indication:Impaired fasting glucose Start:24-Jan-2022 Instruction Type:Patient Education Patient Instructions Indication:BMI 39.0-39.9,adult Start:24-Oct-2021 Instruction Type:Provider Instructions for Treatment How to Access Health Informa tion Online using Patient Portal and [employer] Apps Indication:BMI 39.0-39.9,adult Start:24-Oct-2021 Instruction Type:Patient Education Patient Instructions Indication:BMI 39.0-39.9,adult Start:30-May-2021 Instruction Type:Provider Instructions for Treatment How to Access Health Informa tion Online using Patient Portal and [employer] Apps Indication:BMI 39.0-39.9,adult Start:30-May-2021 Instruction Type:Patient Education Patient Instructions Indication:Encounter for screening for malignant neoplasm of colon (Renamed from Special screening for malignant neoplasms, colon) Start:25-Apr-2021 Instruction Type:Provider Instructions for Treatment How to Access Health Informa tion Online using Patient Portal and [employer] Apps Indication:Non-smoker Start:25-Apr-2021 Instruction Type:Patient Education Patient Instructions Indication:Non-smoker Start:17-Jan-2021 Instruction Type:Provider Instructions for Treatment How to Access Health Informa tion Online using Patient Portal and [employer] Apps Indication:Non-smoker Start:17-Jan-2021 Instruction Type:Patient Education Patient Instructions Indication:CKD stage G3b/A1, GFR 30-44 and albumin creatinine ratio <30 mg/g Start:16-Dec-2020 Instruction Type:Provider Instructions for Treatment How to Access Health Informa tion Online using Patient Portal and [employer] Apps Indication:JESUS (obstructive sleep apnea) Start:16-Dec-2020 Instruction Type:Patient Education Patient Instructions Indication:Non-smoker Start:09-Dec-2020 Instruction Type:Provider Instructions for Treatment How to Access Health Informa tion Online using Patient Portal and [employer] Apps Indication:HTN (hypertension), benign Start:09-Dec-2020 Instruction Type:Patient [...] tion Online using Patient Portal and [employer] Apps Indication:Non-smoker Start:15-Mar-2022 Instruction Type:Patient Education Patient Instructions Indication:Morbid obesity Start:08-Mar-2022 Instruction Type:Provider Instructions for Treatment How to Access Health Informa tion Online using Patient Portal and [employer] Apps Indication:Morbid obesity Start:08-Mar-2022 Instruction Type:Patient Education Patient Instructions Indication:Non-smoker Start:22-Feb-2022 Instruction Type:Provider Instructions for Treatment How to Access Health Informa tion Online using Patient Portal and [employer] Apps Indication:Non-smoker Start:22-Feb-2022 Instruction Type:Patient Education Patient Instructions Indication:Non-smoker Start:05-Feb-2022 Instruction Type:Provider Instructions for Treatment How to Access Health Informa tion Online using Patient Portal and [employer] Apps Indication:Non-smoker Start:05-Feb-2022 Instruction Type:Patient Education Patient Instructions Indication:Impaired fasting glucose Start:24-Jan-2022 Instruction Type:Provider Instructions for Treatment How to Access Health Informa tion Online using Patient Portal and [employer] Apps Indication:Impaired fasting glucose Start:24-Jan-2022 Instruction Type:Patient Education Patient Instructions Indication:BMI 39.0-39.9,adult Start:24-Oct-2021 Instruction Type:Provider Instructions for Treatment How to Access Health Informa tion Online using Patient Portal and [employer] Apps Indication:BMI 39.0-39.9,adult Start:24-Oct-2021 Instruction Type:Patient Education Patient Instructions Indication:BMI 39.0-39.9,adult Start:30-May-2021 Instruction Type:Provider Instructions for Treatment How to Access Health Informa tion Online using Patient Portal and [employer] Apps Indication:BMI 39.0-39.9,adult Start:30-May-2021 Instruction Type:Patient Education Patient Instructions Indication:Encounter for screening for malignant neoplasm of colon (Renamed from Special screening for malignant neoplasms, colon) Start:25-Apr-2021 Instruction Type:Provider Instructions for Treatment How to Access Health Informa tion Online using Patient Portal and [employer] Apps Indication:Non-smoker Start:25-Apr-2021 Instruction Type:Patient Education Patient Instructions Indication:Non-smoker Start:17-Jan-2021 Instruction Type:Provider Instructions for Treatment How to Access Health Informa tion Online using Patient Portal and [employer] Apps Indication:Non-smoker Start:17-Jan-2021 Instruction Type:Patient Education Patient Instructions Indication:CKD stage G3b/A1, GFR 30-44 and albumin creatinine ratio <30 mg/g Start:16-Dec-2020 Instruction Type:Provider Instructions for Treatment How to Access Health Informa tion Online using Patient Portal and [employer] Apps Indication:JESUS (obstructive sleep apnea) Start:16-Dec-2020 Instruction Type:Patient Education Patient Instructions Indication:Non-smoker Start:09-Dec-2020 Instruction Type:Provider Instructions for Treatment How to Access Health Informa tion Online using Patient Portal and [employer] Apps Indication:HTN (hypertension), benign Start:09-Dec-2020 Instruction Type:Patient [...] tion Online using Patient Portal and [employer] Apps Indication:Non-smoker Start:15-Mar-2022 Instruction Type:Patient Education Patient Instructions Indication:Morbid obesity Start:08-Mar-2022 Instruction Type:Provider Instructions for Treatment How to Access Health Informa tion Online using Patient Portal and [employer] Apps Indication:Morbid obesity Start:08-Mar-2022 Instruction Type:Patient Education Patient Instructions Indication:Non-smoker Start:22-Feb-2022 Instruction Type:Provider Instructions for Treatment How to Access Health Informa tion Online using Patient Portal and [employer] Apps Indication:Non-smoker Start:22-Feb-2022 Instruction Type:Patient Education Patient Instructions Indication:Non-smoker Start:05-Feb-2022 Instruction Type:Provider Instructions for Treatment How to Access Health Informa tion Online using Patient Portal and [employer] Apps Indication:Non-smoker Start:05-Feb-2022 Instruction Type:Patient Education Patient Instructions Indication:Impaired fasting glucose Start:24-Jan-2022 Instruction Type:Provider Instructions for Treatment How to Access Health Informa tion Online using Patient Portal and [employer] Apps Indication:Impaired fasting glucose Start:24-Jan-2022 Instruction Type:Patient Education Patient Instructions Indication:BMI 39.0-39.9,adult Start:24-Oct-2021 Instruction Type:Provider Instructions for Treatment How to Access Health Informa tion Online using Patient Portal and [employer] Indication:BMI 39.0-39.9,adult Start:24-Oct-2021 Instruction Type:Patient Education Patient Instructions Indication:BMI 39.0-39.9,adult Start:30-May-2021 Instruction Type:Provider Instructions for Treatment How to Access Health Informa tion Online using Patient Portal and [employer] Apps Indication:BMI 39.0-39.9,adult Start:30-May-2021 Instruction Type:Patient Education Patient Instructions Indication:Encounter for screening for malignant neoplasm of colon (Renamed from Special screening for malignant neoplasms, colon) Start:25-Apr-2021 Instruction Type:Provider Instructions for Treatment How to Access Health Informa tion Online using Patient Portal and [employer] Apps Indication:Non-smoker Start:25-Apr-2021 Instruction Type:Patient Education Patient Instructions Indication:Non-smoker Start:17-Jan-2021 Instruction Type:Provider Instructions for Treatment How to Access Health Informa tion Online using Patient Portal and [employer] Apps Indication:Non-smoker Start:17-Jan-2021 Instruction Type:Patient Education Patient Instructions Indication:CKD stage G3b/A1, GFR 30-44 and albumin creatinine ratio <30 mg/g Start:16-Dec-2020 Instruction Type:Provider Instructions for Treatment How to Access Health Informa tion Online using Patient Portal and [employer] Apps Indication:JESUS (obstructive sleep apnea) Start:16-Dec-2020 Instruction Type:Patient Education Patient Instructions Indication:Non-smoker Start:09-Dec-2020 Instruction Type:Provider Instructions for Treatment How to Access Health Informa tion Online using Patient Portal and [employer] Apps Indication:HTN (hypertension), benign Start:09-Dec-2020 Instruction Type:Patient [...] tion Online using Patient Portal and [employer] Apps Indication:BMI 40.0-44.9, adult Start:25-Oct-2022 Instruction Type:Patient Education Patient Instructions Indication:Non-smoker Start:15-Mar-2022 Instruction Type:Provider Instructions for Treatment How to Access Health Informa tion Online using Patient Portal and [employer] Apps Indication:Non-smoker Start:15-Mar-2022 Instruction Type:Patient Education Patient Instructions Indication:Morbid obesity Start:08-Mar-2022 Instruction Type:Provider Instructions for Treatment How to Access Health Informa tion Online using Patient Portal and [employer] Apps Indication:Morbid obesity Start:08-Mar-2022 Instruction Type:Patient Education Patient Instructions Indication:Non-smoker Start:22-Feb-2022 Instruction Type:Provider Instructions for Treatment How to Access Health Informa tion Online using Patient Portal and [employer] Apps Indication:Non-smoker Start:22-Feb-2022 Instruction Type:Patient Education Patient Instructions Indication:Non-smoker Start:05-Feb-2022 Instruction Type:Provider Instructions for Treatment How to Access Health Informa tion Online using Patient Portal and [employer] Apps Indication:Non-smoker Start:05-Feb-2022 Instruction Type:Patient Education Patient Instructions Indication:Impaired fasting glucose Start:24-Jan-2022 Instruction Type:Provider Instructions for Treatment How to Access Health Informa tion Online using Patient Portal and [employer] Apps Indication:Impaired fasting glucose Start:24-Jan-2022 Instruction Type:Patient Education Patient Instructions Indication:BMI 39.0-39.9,adult Start:24-Oct-2021 Instruction Type:Provider Instructions for Treatment How to Access Health Informa tion Online using Patient Portal and [employer] Apps Indication:BMI 39.0-39.9,adult Start:24-Oct-2021 Instruction Type:Patient Education Patient Instructions Indication:BMI 39.0-39.9,adult Start:30-May-2021 Instruction Type:Provider Instructions for Treatment How to Access Health Informa tion Online using Patient Portal and [employer] Apps Indication:BMI 39.0-39.9,adult Start:30-May-2021 Instruction Type:Patient Education Patient Instructions Indication:Encounter for screening for malignant neoplasm of colon (Renamed from Special screening for malignant neoplasms, colon) Start:25-Apr-2021 Instruction Type:Provider Instructions for Treatment How to Access Health Informa tion Online using Patient Portal and [employer] Apps Indication:Non-smoker Start:25-Apr-2021 Instruction Type:Patient Education Patient Instructions Indication:Non-smoker Start:17-Jan-2021 Instruction Type:Provider Instructions for Treatment How to Access Health Informa tion Online using Patient Portal and [employer] Apps Indication:Non-smoker Start:17-Jan-2021 Instruction Type:Patient Education Patient Instructions Indication:CKD stage G3b/A1, GFR 30-44 and albumin creatinine ratio <30 mg/g Start:16-Dec-2020 Instruction Type:Provider Instructions for Treatment How to Access Health Informa tion Online using Patient Portal and [employer] Apps Indication:JESUS (obstructive sleep apnea) Start:16-Dec-2020 Instruction Type:Patient Education Patient Instructions Indication:Non-smoker Start:09-Dec-2020 Instruction Type:Provider Instructions for Treatment How to Access Health Informa tion Online using Patient Portal and [employer] Apps Indication:HTN (hypertension), benign Start:09-Dec-2020 Instruction Type:Patient [...] tion Online using Patient Portal and [employer] Apps Indication:BMI 40.0-44.9, adult Start:25-Oct-2022 Instruction Type:Patient Education Patient Instructions Indication:Non-smoker Start:15-Mar-2022 Instruction Type:Provider Instructions for Treatment How to Access Health Informa tion Online using Patient Portal and [employer] Apps Indication:Non-smoker Start:15-Mar-2022 Instruction Type:Patient Education Patient Instructions Indication:Morbid obesity Start:08-Mar-2022 Instruction Type:Provider Instructions for Treatment How to Access Health Informa tion Online using Patient Portal and [employer] Apps Indication:Morbid obesity Start:08-Mar-2022 Instruction Type:Patient Education Patient Instructions Indication:Non-smoker Start:22-Feb-2022 Instruction Type:Provider Instructions for Treatment How to Access Health Informa tion Online using Patient Portal and [employer] Apps Indication:Non-smoker Start:22-Feb-2022 Instruction Type:Patient Education Patient Instructions Indication:Non-smoker Start:05-Feb-2022 Instruction Type:Provider Instructions for Treatment How to Access Health Informa tion Online using Patient Portal and [employer] Apps Indication:Non-smoker Start:05-Feb-2022 Instruction Type:Patient Education Patient Instructions Indication:Impaired fasting glucose Start:24-Jan-2022 Instruction Type:Provider Instructions for Treatment How to Access Health Informa tion Online using Patient Portal and [employer] Apps Indication:Impaired fasting glucose Start:24-Jan-2022 Instruction Type:Patient Education Patient Instructions Indication:BMI 39.0-39.9,adult Start:24-Oct-2021 Instruction Type:Provider Instructions for Treatment How to Access Health Informa tion Online using Patient Portal and [employer] Apps Indication:BMI 39.0-39.9,adult Start:24-Oct-2021 Instruction Type:Patient Education Patient Instructions Indication:BMI 39.0-39.9,adult Start:30-May-2021 Instruction Type:Provider Instructions for Treatment How to Access Health Informa tion Online using Patient Portal and [employer] Apps Indication:BMI 39.0-39.9,adult Start:30-May-2021 Instruction Type:Patient Education Patient Instructions Indication:Encounter for screening for malignant neoplasm of colon (Renamed from Special screening for malignant neoplasms, colon) Start:25-Apr-2021 Instruction Type:Provider Instructions for Treatment How to Access Health Informa tion Online using Patient Portal and [employer] Apps Indication:Non-smoker Start:25-Apr-2021 Instruction Type:Patient Education Patient Instructions Indication:Non-smoker Start:17-Jan-2021 Instruction Type:Provider Instructions for Treatment How to Access Health Informa tion Online using Patient Portal and [employer] Apps Indication:Non-smoker Start:17-Jan-2021 Instruction Type:Patient Education Patient Instructions Indication:CKD stage G3b/A1, GFR 30-44 and albumin creatinine ratio <30 mg/g Start:16-Dec-2020 Instruction Type:Provider Instructions for Treatment How to Access Health Informa tion Online using Patient Portal and [employer] Apps Indication:JESUS (obstructive sleep apnea) Start:16-Dec-2020 Instruction Type:Patient Education Patient Instructions Indication:Non-smoker Start:09-Dec-2020 Instruction Type:Provider Instructions for Treatment How to Access Health Informa tion Online using Patient Portal and [employer] Apps Indication:HTN (hypertension), benign Start:09-Dec-2020 Instruction Type:Patient [...] tion Online using Patient Portal and [employer] Apps Indication:BMI 40.0-44.9, adult Start:25-Oct-2022 Instruction Type:Patient Education Patient Instructions Indication:Non-smoker Start:15-Mar-2022 Instruction Type:Provider Instructions for Treatment How to Access Health Informa tion Online using Patient Portal and [employer] Apps Indication:Non-smoker Start:15-Mar-2022 Instruction Type:Patient Education Patient Instructions Indication:Morbid obesity Start:08-Mar-2022 Instruction Type:Provider Instructions for Treatment How to Access Health Informa tion Online using Patient Portal and [employer] Apps Indication:Morbid obesity Start:08-Mar-2022 Instruction Type:Patient Education Patient Instructions Indication:Non-smoker Start:22-Feb-2022 Instruction Type:Provider Instructions for Treatment How to Access Health Informa tion Online using Patient Portal and [employer] Apps Indication:Non-smoker Start:22-Feb-2022 Instruction Type:Patient Education Patient Instructions Indication:Non-smoker Start:05-Feb-2022 Instruction Type:Provider Instructions for Treatment How to Access Health Informa tion Online using Patient Portal and [employer] Apps Indication:Non-smoker Start:05-Feb-2022 Instruction Type:Patient Education Patient Instructions Indication:Impaired fasting glucose Start:24-Jan-2022 Instruction Type:Provider Instructions for Treatment How to Access Health Informa tion Online using Patient Portal and [employer] Apps Indication:Impaired fasting glucose Start:24-Jan-2022 Instruction Type:Patient Education Patient Instructions Indication:BMI 39.0-39.9,adult Start:24-Oct-2021 Instruction Type:Provider Instructions for Treatment How to Access Health Informa tion Online using Patient Portal and [employer] Apps Indication:BMI 39.0-39.9,adult Start:24-Oct-2021 Instruction Type:Patient Education Patient Instructions Indication:BMI 39.0-39.9,adult Start:30-May-2021 Instruction Type:Provider Instructions for Treatment How to Access Health Informa tion Online using Patient Portal and [employer] Apps Indication:BMI 39.0-39.9,adult Start:30-May-2021 Instruction Type:Patient Education Patient Instructions Indication:Encounter for screening for malignant neoplasm of colon (Renamed from Special screening for malignant neoplasms, colon) Start:25-Apr-2021 Instruction Type:Provider Instructions for Treatment How to Access Health Informa tion Online using Patient Portal and [employer] Apps Indication:Non-smoker Start:25-Apr-2021 Instruction Type:Patient Education Patient Instructions Indication:Non-smoker Start:17-Jan-2021 Instruction Type:Provider Instructions for Treatment How to Access Health Informa tion Online using Patient Portal and [employer] Apps Indication:Non-smoker Start:17-Jan-2021 Instruction Type:Patient Education Patient Instructions Indication:CKD stage G3b/A1, GFR 30-44 and albumin creatinine ratio <30 mg/g Start:16-Dec-2020 Instruction Type:Provider Instructions for Treatment How to Access Health Informa tion Online using Patient Portal and [employer] Apps Indication:JESUS (obstructive sleep apnea) Start:16-Dec-2020 Instruction Type:Patient Education Patient Instructions Indication:Non-smoker Start:09-Dec-2020 Instruction Type:Provider Instructions for Treatment How to Access Health Informa tion Online using Patient Portal and [employer] Apps Indication:HTN (hypertension), benign Start:09-Dec-2020 Instruction Type:Patient [...] tion Online using Patient Portal and [employer] Apps Indication:Non-smoker Start:25-Feb-2023 Instruction Type:Patient Education Patient Instructions Indication:BMI 40.0-44.9, adult Start:25-Oct-2022 Instruction Type:Provider Instructions for Treatment How to Access Health Informa tion Online using Patient Portal and [employer] Apps Indication:BMI 40.0-44.9, adult Start:25-Oct-2022 Instruction Type:Patient Education Patient Instructions Indication:Non-smoker Start:15-Mar-2022 Instruction Type:Provider Instructions for Treatment How to Access Health Informa tion Online using Patient Portal and [employer] Apps Indication:Non-smoker Start:15-Mar-2022 Instruction Type:Patient Education Patient Instructions Indication:Morbid obesity Start:08-Mar-2022 Instruction Type:Provider Instructions for Treatment How to Access Health Informa tion Online using Patient Portal and [employer] Apps Indication:Morbid obesity Start:08-Mar-2022 Instruction Type:Patient Education Patient Instructions Indication:Non-smoker Start:22-Feb-2022 Instruction Type:Provider Instructions for Treatment How to Access Health Informa tion Online using Patient Portal and [employer] Apps Indication:Non-smoker Start:22-Feb-2022 Instruction Type:Patient Education Patient Instructions Indication:Non-smoker Start:05-Feb-2022 Instruction Type:Provider Instructions for Treatment How to Access Health Informa tion Online using Patient Portal and [employer] Apps Indication:Non-smoker Start:05-Feb-2022 Instruction Type:Patient Education Patient Instructions Indication:Impaired fasting glucose Start:24-Jan-2022 Instruction Type:Provider Instructions for Treatment How to Access Health Informa tion Online using Patient Portal and [employer] Apps Indication:Impaired fasting glucose Start:24-Jan-2022 Instruction Type:Patient Education Patient Instructions Indication:BMI 39.0-39.9,adult Start:24-Oct-2021 Instruction Type:Provider Instructions for Treatment How to Access Health Informa tion Online using Patient Portal and [employer] Apps Indication:BMI 39.0-39.9,adult Start:24-Oct-2021 Instruction Type:Patient Education Patient Instructions Indication:BMI 39.0-39.9,adult Start:30-May-2021 Instruction Type:Provider Instructions for Treatment How to Access Health Informa tion Online using Patient Portal and [employer] Apps Indication:BMI 39.0-39.9,adult Start:30-May-2021 Instruction Type:Patient Education Patient Instructions Indication:Encounter for screening for malignant neoplasm of colon (Renamed from Special screening for malignant neoplasms, colon) Start:25-Apr-2021 Instruction Type:Provider Instructions for Treatment How to Access Health Informa tion Online using Patient Portal and [employer] Apps Indication:Non-smoker Start:25-Apr-2021 Instruction Type:Patient Education Patient Instructions Indication:Non-smoker Start:17-Jan-2021 Instruction Type:Provider Instructions for Treatment How to Access Health Informa tion Online using Patient Portal and [employer] Apps Indication:Non-smoker Start:17-Jan-2021 Instruction Type:Patient Education Patient Instructions Indication:CKD stage G3b/A1, GFR 30-44 and albumin creatinine ratio <30 mg/g Start:16-Dec-2020 Instruction Type:Provider Instructions for Treatment How to Access Health Informa tion Online using Patient Portal and [employer] Apps Indication:JESUS (obstructive sleep apnea) Start:16-Dec-2020 Instruction Type:Patient Education Patient Instructions Indication:Non-smoker Start:09-Dec-2020 Instruction Type:Provider Instructions for Treatment How to Access Health Informa tion Online using Patient Portal and [employer] Apps Indication:HTN (hypertension), benign Start:09-Dec-2020 Instruction Type:Patient [...] tion Online using Patient Portal and [employer] Apps Indication:Non-smoker Start:25-Mar-2023 Instruction Type:Patient Education Patient Instructions Indication:Non-smoker Start:25-Feb-2023 Instruction Type:Provider Instructions for Treatment How to Access Health Informa tion Online using Patient Portal and [employer] Apps Indication:Non-smoker Start:25-Feb-2023 Instruction Type:Patient Education Patient Instructions Indication:BMI 40.0-44.9, adult Start:25-Oct-2022 Instruction Type:Provider Instructions for Treatment How to Access Health Informa tion Online using Patient Portal and [employer] Apps Indication:BMI 40.0-44.9, adult Start:25-Oct-2022 Instruction Type:Patient Education Patient Instructions Indication:Non-smoker Start:15-Mar-2022 Instruction Type:Provider Instructions for Treatment How to Access Health Informa tion Online using Patient Portal and [employer] Apps Indication:Non-smoker Start:15-Mar-2022 Instruction Type:Patient Education Patient Instructions Indication:Morbid obesity Start:08-Mar-2022 Instruction Type:Provider Instructions for Treatment How to Access Health Informa tion Online using Patient Portal and [employer] Apps Indication:Morbid obesity Start:08-Mar-2022 Instruction Type:Patient Education Patient Instructions Indication:Non-smoker Start:22-Feb-2022 Instruction Type:Provider Instructions for Treatment How to Access Health Informa tion Online using Patient Portal and [employer] Apps Indication:Non-smoker Start:22-Feb-2022 Instruction Type:Patient Education Patient Instructions Indication:Non-smoker Start:05-Feb-2022 Instruction Type:Provider Instructions for Treatment How to Access Health Informa tion Online using Patient Portal and [employer] Apps Indication:Non-smoker Start:05-Feb-2022 Instruction Type:Patient Education Patient Instructions Indication:Impaired fasting glucose Start:24-Jan-2022 Instruction Type:Provider Instructions for Treatment How to Access Health Informa tion Online using Patient Portal and [employer] Apps Indication:Impaired fasting glucose Start:24-Jan-2022 Instruction Type:Patient Education Patient Instructions Indication:BMI 39.0-39.9,adult Start:24-Oct-2021 Instruction Type:Provider Instructions for Treatment How to Access Health Informa tion Online using Patient Portal and [employer] Apps Indication:BMI 39.0-39.9,adult Start:24-Oct-2021 Instruction Type:Patient Education Patient Instructions Indication:BMI 39.0-39.9,adult Start:30-May-2021 Instruction Type:Provider Instructions for Treatment How to Access Health Informa tion Online using Patient Portal and [employer] Apps Indication:BMI 39.0-39.9,adult Start:30-May-2021 Instruction Type:Patient Education Patient Instructions Indication:Encounter for screening for malignant neoplasm of colon (Renamed from Special screening for malignant neoplasms, colon) Start:25-Apr-2021 Instruction Type:Provider Instructions for Treatment How to Access Health Informa tion Online using Patient Portal and [employer] Apps Indication:Non-smoker Start:25-Apr-2021 Instruction Type:Patient Education Patient Instructions Indication:Non-smoker Start:17-Jan-2021 Instruction Type:Provider Instructions for Treatment How to Access Health Informa tion Online using Patient Portal and [employer] Apps Indication:Non-smoker Start:17-Jan-2021 Instruction Type:Patient Education Patient Instructions Indication:CKD stage G3b/A1, GFR 30-44 and albumin creatinine ratio <30 mg/g Start:16-Dec-2020 Instruction Type:Provider Instructions for Treatment How to Access Health Informa tion Online using Patient Portal and [employer] Apps Indication:JESUS (obstructive sleep apnea) Start:16-Dec-2020 Instruction Type:Patient Education Patient Instructions Indication:Non-smoker Start:09-Dec-2020 Instruction Type:Provider Instructions for Treatment How to Access Health Informa tion Online using Patient Portal and [employer] Apps Indication:HTN (hypertension), benign Start:09-Dec-2020 Instruction Type:Patient [...] Informa tion Online using Patient Portal and [employer] Apps Indication:Non-smoker Start:12-Apr-2023 Instruction Type:Patient Education Patient Instructions Indication:Non-smoker Start:12-Apr-2023 Instruction Type:Provider Instructions for Treatment Patient Instructions Indication:Non-smoker Start:25-Mar-2023 Instruction Type:Provider Instructions for Treatment How to Access Health Informa tion Online using Patient Portal and [employer] Apps Indication:Non-smoker Start:25-Mar-2023 Instruction Type:Patient Education Patient Instructions Indication:Non-smoker Start:25-Feb-2023 Instruction Type:Provider Instructions for Treatment How to Access Health Informa tion Online using Patient Portal and [employer] Apps Indication:Non-smoker Start:25-Feb-2023 Instruction Type:Patient Education Patient Instructions Indication:BMI 40.0-44.9, adult Start:25-Oct-2022 Instruction Type:Provider Instructions for Treatment How to Access Health Informa tion Online using Patient Portal and [employer] Apps Indication:BMI 40.0-44.9, adult Start:25-Oct-2022 Instruction Type:Patient Education Patient Instructions Indication:Non-smoker Start:15-Mar-2022 Instruction Type:Provider Instructions for Treatment How to Access Health Informa tion Online using Patient Portal and [employer] Apps Indication:Non-smoker Start:15-Mar-2022 Instruction Type:Patient Education Patient Instructions Indication:Morbid obesity Start:08-Mar-2022 Instruction Type:Provider Instructions for Treatment How to Access Health Informa tion Online using Patient Portal and [employer] Apps Indication:Morbid obesity Start:08-Mar-2022 Instruction Type:Patient Education Patient Instructions Indication:Non-smoker Start:22-Feb-2022 Instruction Type:Provider Instructions for Treatment How to Access Health Informa tion Online using Patient Portal and [employer] Apps Indication:Non-smoker Start:22-Feb-2022 Instruction Type:Patient Education Patient Instructions Indication:Non-smoker Start:05-Feb-2022 Instruction Type:Provider Instructions for Treatment How to Access Health Informa tion Online using Patient Portal and [employer] Apps Indication:Non-smoker Start:05-Feb-2022 Instruction Type:Patient Education Patient Instructions Indication:Impaired fasting glucose Start:24-Jan-2022 Instruction Type:Provider Instructions for Treatment How to Access Health Informa tion Online using Patient Portal and [employer] Apps Indication:Impaired fasting glucose Start:24-Jan-2022 Instruction Type:Patient Education Patient Instructions Indication:BMI 39.0-39.9,adult Start:24-Oct-2021 Instruction Type:Provider Instructions for Treatment How to Access Health Informa tion Online using Patient Portal and [employer] Apps Indication:BMI 39.0-39.9,adult Start:24-Oct-2021 Instruction Type:Patient Education Patient Instructions Indication:BMI 39.0-39.9,adult Start:30-May-2021 Instruction Type:Provider Instructions for Treatment How to Access Health Informa tion Online using Patient Portal and [employer] Apps Indication:BMI 39.0-39.9,adult Start:30-May-2021 Instruction Type:Patient Education Patient Instructions Indication:Encounter for screening for malignant neoplasm of colon (Renamed from Special screening for malignant neoplasms, colon) Start:25-Apr-2021 Instruction Type:Provider Instructions for Treatment How to Access Health Informa tion Online using Patient Portal and [employer] Apps Indication:Non-smoker Start:25-Apr-2021 Instruction Type:Patient Education Patient Instructions Indication:Non-smoker Start:17-Jan-2021 Instruction Type:Provider Instructions for Treatment How to Access Health Informa tion Online using Patient Portal and [employer] Apps Indication:Non-smoker Start:17-Jan-2021 Instruction Type:Patient Education Patient Instructions Indication:CKD stage G3b/A1, GFR 30-44 and albumin creatinine ratio <30 mg/g Start:16-Dec-2020 Instruction Type:Provider Instructions for Treatment How to Access Health Informa tion Online using Patient Portal and [employer] Apps Indication:JESUS (obstructive sleep apnea) Start:16-Dec-2020 Instruction Type:Patient Education Patient Instructions Indication:Non-smoker Start:09-Dec-2020 Instruction Type:Provider Instructions for Treatment How to Access Health Informa tion Online using Patient Portal and [employer] Apps Indication:HTN (hypertension), benign Start:09-Dec-2020 Instruction Type:Patient [...] tion Online using Patient Portal and [employer] Apps Indication:Non-smoker Start:29-Apr-2023 Instruction Type:Patient Education Patient Instructions Indication:Non-smoker Start:29-Apr-2023 Instruction Type:Provider Instructions for Treatment How to Access Health Informa tion Online using Patient Portal and [employer] Apps Indication:Non-smoker Start:12-Apr-2023 Instruction Type:Patient Education Patient Instructions Indication:Non-smoker Start:12-Apr-2023 Instruction Type:Provider Instructions for Treatment Patient Instructions Indication:Non-smoker Start:25-Mar-2023 Instruction Type:Provider Instructions for Treatment How to Access Health Informa tion Online using Patient Portal and [employer] Apps Indication:Non-smoker Start:25-Mar-2023 Instruction Type:Patient Education Patient Instructions Indication:Non-smoker Start:25-Feb-2023 Instruction Type:Provider Instructions for Treatment How to Access Health Informa tion Online using Patient Portal and [employer] Apps Indication:Non-smoker Start:25-Feb-2023 Instruction Type:Patient Education Patient Instructions Indication:BMI 40.0-44.9, adult Start:25-Oct-2022 Instruction Type:Provider Instructions for Treatment How to Access Health Informa tion Online using Patient Portal and [employer] Apps Indication:BMI 40.0-44.9, adult Start:25-Oct-2022 Instruction Type:Patient Education Patient Instructions Indication:Non-smoker Start:15-Mar-2022 Instruction Type:Provider Instructions for Treatment How to Access Health Informa tion Online using Patient Portal and [employer] Apps Indication:Non-smoker Start:15-Mar-2022 Instruction Type:Patient Education Patient Instructions Indication:Morbid obesity Start:08-Mar-2022 Instruction Type:Provider Instructions for Treatment How to Access Health Informa tion Online using Patient Portal and [employer] Apps Indication:Morbid obesity Start:08-Mar-2022 Instruction Type:Patient Education Patient Instructions Indication:Non-smoker Start:22-Feb-2022 Instruction Type:Provider Instructions for Treatment How to Access Health Informa tion Online using Patient Portal and [employer] Apps Indication:Non-smoker Start:22-Feb-2022 Instruction Type:Patient Education Patient Instructions Indication:Non-smoker Start:05-Feb-2022 Instruction Type:Provider Instructions for Treatment How to Access Health Informa tion Online using Patient Portal and [employer] Apps Indication:Non-smoker Start:05-Feb-2022 Instruction Type:Patient Education Patient Instructions Indication:Impaired fasting glucose Start:24-Jan-2022 Instruction Type:Provider Instructions for Treatment How to Access Health Informa tion Online using Patient Portal and [employer] Apps Indication:Impaired fasting glucose Start:24-Jan-2022 Instruction Type:Patient Education Patient Instructions Indication:BMI 39.0-39.9,adult Start:24-Oct-2021 Instruction Type:Provider Instructions for Treatment How to Access Health Informa tion Online using Patient Portal and [employer] Apps Indication:BMI 39.0-39.9,adult Start:24-Oct-2021 Instruction Type:Patient Education Patient Instructions Indication:BMI 39.0-39.9,adult Start:30-May-2021 Instruction Type:Provider Instructions for Treatment How to Access Health Informa tion Online using Patient Portal and [employer] Apps Indication:BMI 39.0-39.9,adult Start:30-May-2021 Instruction Type:Patient Education Patient Instructions Indication:Encounter for screening for malignant neoplasm of colon (Renamed from Special screening for malignant neoplasms, colon) Start:25-Apr-2021 Instruction Type:Provider Instructions for Treatment How to Access Health Informa tion Online using Patient Portal and [employer] Apps Indication:Non-smoker Start:25-Apr-2021 Instruction Type:Patient Education Patient Instructions Indication:Non-smoker Start:17-Jan-2021 Instruction Type:Provider Instructions for Treatment How to Access Health Informa tion Online using Patient Portal and [employer] Apps Indication:Non-smoker Start:17-Jan-2021 Instruction Type:Patient Education Patient Instructions Indication:CKD stage G3b/A1, GFR 30-44 and albumin creatinine ratio <30 mg/g Start:16-Dec-2020 Instruction Type:Provider Instructions for Treatment How to Access Health Informa tion Online using Patient Portal and [employer] Apps Indication:JESUS (obstructive sleep apnea) Start:16-Dec-2020 Instruction Type:Patient Education Patient Instructions Indication:Non-smoker Start:09-Dec-2020 Instruction Type:Provider Instructions for Treatment How to Access Health Informa tion Online using Patient Portal and [employer] Apps Indication:HTN (hypertension), benign Start:09-Dec-2020 Instruction Type:Patient [...] tion Online using Patient Portal and [employer] Apps Indication:Non-smoker Start:29-Apr-2023 Instruction Type:Patient Education Patient Instructions Indication:Non-smoker Start:29-Apr-2023 Instruction Type:Provider Instructions for Treatment How to Access Health Informa tion Online using Patient Portal and [employer] Apps Indication:Non-smoker Start:12-Apr-2023 Instruction Type:Patient Education Patient Instructions Indication:Non-smoker Start:12-Apr-2023 Instruction Type:Provider Instructions for Treatment Patient Instructions Indication:Non-smoker Start:25-Mar-2023 Instruction Type:Provider Instructions for Treatment How to Access Health Informa tion Online using Patient Portal and [employer] Apps Indication:Non-smoker Start:25-Mar-2023 Instruction Type:Patient Education Patient Instructions Indication:Non-smoker Start:25-Feb-2023 Instruction Type:Provider Instructions for Treatment How to Access Health Informa tion Online using Patient Portal and [employer] Apps Indication:Non-smoker Start:25-Feb-2023 Instruction Type:Patient Education Patient Instructions Indication:BMI 40.0-44.9, adult Start:25-Oct-2022 Instruction Type:Provider Instructions for Treatment How to Access Health Informa tion Online using Patient Portal and [employer] Apps Indication:BMI 40.0-44.9, adult Start:25-Oct-2022 Instruction Type:Patient Education Patient Instructions Indication:Non-smoker Start:15-Mar-2022 Instruction Type:Provider Instructions for Treatment How to Access Health Informa tion Online using Patient Portal and [employer] Apps Indication:Non-smoker Start:15-Mar-2022 Instruction Type:Patient Education Patient Instructions Indication:Morbid obesity Start:08-Mar-2022 Instruction Type:Provider Instructions for Treatment How to Access Health Informa tion Online using Patient Portal and [employer] Apps Indication:Morbid obesity Start:08-Mar-2022 Instruction Type:Patient Education Patient Instructions Indication:Non-smoker Start:22-Feb-2022 Instruction Type:Provider Instructions for Treatment How to Access Health Informa tion Online using Patient Portal and [employer] Apps Indication:Non-smoker Start:22-Feb-2022 Instruction Type:Patient Education Patient Instructions Indication:Non-smoker Start:05-Feb-2022 Instruction Type:Provider Instructions for Treatment How to Access Health Informa tion Online using Patient Portal and [employer] Apps Indication:Non-smoker Start:05-Feb-2022 Instruction Type:Patient Education Patient Instructions Indication:Impaired fasting glucose Start:24-Jan-2022 Instruction Type:Provider Instructions for Treatment How to Access Health Informa tion Online using Patient Portal and [employer] Apps Indication:Impaired fasting glucose Start:24-Jan-2022 Instruction Type:Patient Education Patient Instructions Indication:BMI 39.0-39.9,adult Start:24-Oct-2021 Instruction Type:Provider Instructions for Treatment How to Access Health Informa tion Online using Patient Portal and [employer] Apps Indication:BMI 39.0-39.9,adult Start:24-Oct-2021 Instruction Type:Patient Education Patient Instructions Indication:BMI 39.0-39.9,adult Start:30-May-2021 Instruction Type:Provider Instructions for Treatment How to Access Health Informa tion Online using Patient Portal and [employer] Apps Indication:BMI 39.0-39.9,adult Start:30-May-2021 Instruction Type:Patient Education Patient Instructions Indication:Encounter for screening for malignant neoplasm of colon (Renamed from Special screening for malignant neoplasms, colon) Start:25-Apr-2021 Instruction Type:Provider Instructions for Treatment How to Access Health Informa tion Online using Patient Portal and [employer] Apps Indication:Non-smoker Start:25-Apr-2021 Instruction Type:Patient Education Patient Instructions Indication:Non-smoker Start:17-Jan-2021 Instruction Type:Provider Instructions for Treatment How to Access Health Informa tion Online using Patient Portal and [employer] Apps Indication:Non-smoker Start:17-Jan-2021 Instruction Type:Patient Education Patient Instructions Indication:CKD stage G3b/A1, GFR 30-44 and albumin creatinine ratio <30 mg/g Start:16-Dec-2020 Instruction Type:Provider Instructions for Treatment How to Access Health Informa tion Online using Patient Portal and [employer] Apps Indication:JESUS (obstructive sleep apnea) Start:16-Dec-2020 Instruction Type:Patient Education Patient Instructions Indication:Non-smoker Start:09-Dec-2020 Instruction Type:Provider Instructions for Treatment How to Access Health Informa tion Online using Patient Portal and [employer] Apps Indication:HTN (hypertension), benign Start:09-Dec-2020 Instruction Type:Patient [...] Dates Details Non-smoker : How to access [employer] Indication:Non-smoker Non-smoker : How to access h [...] DATE CREATED AUTHOR AUTHOR'S ORGANIZ ATION 05/24/2018 [facility] DATE CREATED AUTHOR AUTHOR'S ORGANIZ ATION 05/27/2018 [facility] DATE CREATED AUTHOR AUTHOR'S ORGANIZ ATION 10/30/2022 [facility] FOR RECORDS PERTAINING TO PATIENTS WHO ARE [...] BE BASED ON THE PRIMARY CLINICAL RECORDS. [employer] provides no warranty or guarantee of the accuracy or completeness of information in this document.
[2023-08-07 20:20] VITALS: BP 144/95; PULSE 76; RESP 15; TEMP 36.6; O2SAT 97
[2023-08-07 20:50] LABS: Hemoglobin A1c 5.5 % (3.8-5.6)
[2023-08-07 21:19] VITALS: BMI 41.4
--- NOTE | 2023-08-07 21:22 | ECHOD_ITS ---
Reason For Study: TIA/CVA Procedure This was a 2D Doppler, Color Flow transthoracic echocardiogram. Exam performed portable in patient room. Left Ventricle Normal LV size. Left ventricular systolic function is normal. The estimated ejection fraction is 55 %. Stage 1 diastolic dysfunction. No regional wall motion abnormalities noted. Right Ventricle Normal RV size. Normal systolic function. Atria The left atrium is mildly enlarged. Normal right atrium. Mitral Valve Normal mitral valve. Tricuspid Valve Normal tricuspid valve. Mild (1+) tricuspid valve insufficiency. Pulmonary artery systolic pressure is 32 mmHg. Aortic Valve Normal aortic valve. Trisinus/trileaflet aortic valve. Pulmonic Valve Normal pulmonic valve. Great Vessels Normal aortic root. The pulmonary artery is normal size. Normal inferior vena cava. Pericardium/Pleural No pericardial effusion. Medication Previous NEGATIVE Bubble study. MMode/2D Measurements & Calculations LVIDd: 5.3 cm IVSd: 0.99 cm Ao root diam: 3.3 cm LVIDs: 3.8 cm LVPWd: 1.1 cm LA dimension: 4.3 cm RVDd: 3.9 cm FS: 28.0 % LAV(MOD-bp): 83.8 ml LA A4 area: 25.2 cm2 RA A4 area: 14.4 cm2 LAV(MOD-bp) Indexed: 38.1 ml/m2 LAV(MOD-sp2): 71.2 ml LAV(MOD-sp4): 74.8 ml TAPSE: 1.8 cm Time Measurements MV dec time: 0.36 sec Doppler Measurements & Calculations MV E max salazar: 106.8 cm/sec Lat Peak E' Salazar: 6.3 cm/sec Med Peak E' Salazar: 6.9 cm/sec MV A max salazar: 137.8 cm/sec E/E' lat: 16.9 E/E' med: 15.6 MV E/A: 0.78 MV V2 max: 160.2 cm/sec MV P1/2t max salazar: 112.6 cm/sec Ao V2 max: 159.0 cm/sec MV max P.3 mmHg MV P1/2t: 115.2 msec Ao max P.1 mmHg MV V2 mean: 85.0 cm/sec MV dec slope: 286.3 cm/sec2 Ao V2 mean: 111.7 cm/sec MV mean P.4 mmHg MVA(P1/2t): 1.9 cm2 Ao mean P.5 mmHg MV V2 VTI: 44.9 cm Ao V2 VTI: 31.6 cm AV (velocity ratio): 0.95 LV V1 max: 126.9 cm/sec PA V2 max: 122.6 cm/sec TR max salazar: 266.6 cm/sec LV V1 max P.4 mmHg PA V2 mean: 84.5 cm/sec TR max P.4 mmHg LV V1 mean P.7 mmHg LV V1 mean: 89.7 cm/sec LV V1 VTI: 30.1 cm ECHO/Echo Complete Interpretation Summary Normal LV size. Left ventricular systolic function is normal. The estimated ejection fraction is 55 %. Stage 1 diastolic dysfunction. The left atrium is mildly enlarged. Pulmonary artery systolic pressure is 32 mmHg. Ordering Physician: Vandana Bishop Referring Physician: Patricia Becker M.D. Performed By: Jose Enrique Sabillon RCS
--- NOTE | 2023-08-07 21:22 | CDU_ITS ---
Reason For Study: TIA Rt. Velocities/BP Lt. Velocities/BP Prox CCA 90.5/15.7 cm/sec. Prox CCA 94.9/20.1 cm/sec. Mid CCA 87.2/25.6 cm/sec. Mid CCA 74/22.3 cm/sec. Dist CCA 70.7/20.1 cm/sec. Dist CCA 68.3/23.2 cm/sec. Prox ICA 79.5/14.6 cm/sec. Prox ICA 89.4/17.9 cm/sec. Mid ICA 74/27.8 cm/sec. Mid ICA 79.5/24.5 cm/sec. Dist ICA 102.5/26.7 cm/sec. Dist ICA 90.5/34.4 cm/sec. Rt. ICA/CCA = 1.18. Lt. ICA/CCA = 1.22. Prox ECA 76.2/11.3 cm/sec. Prox ECA 57.5/10.2 cm/sec. Rt. Vert. 38.8/12.4 cm/sec. Lt. Vert. 41.3/11.6 cm/sec. Right Extracranial There is intimal thickening but no significant atherosclerotic plaque noted in the right common carotid artery. There is intimal thickening but no significant atherosclerotic plaque noted in the right internal carotid artery. There is intimal thickening but no significant atherosclerotic plaque noted in the right external carotid artery. Antegrade flow is noted in the right vertebral artery. Left Extracranial There is intimal thickening but no significant atherosclerotic plaque noted in the left common carotid artery. There is intimal thickening but no significant atherosclerotic plaque noted in the left internal carotid artery. There is intimal thickening but no significant atherosclerotic plaque noted in the left external carotid artery. Antegrade flow is noted in the left vertebral artery. Procedure This is a Carotid Duplex examination using B-mode, color flow and specral Doppler. Carotid Duplex 61009. Exam performed portable in patient room. VL/Carotid Duplex Ultrasound Interpretation Summary Normal right extracranial internal carotid. Normal left extracranial internal carotid. Patent and antegrade vertebrals bilaterally. Ordering Physician: Vandana Bishop Referring Physician: Patricia Becker M.D. Performed By: Margarita Nielsen RVT
--- NOTE | 2023-08-07 21:45 | NURSING ---
emergency documentation in effect now 08/07/2023, 2143
[2023-08-07 21:50] VITALS: BP 140/88; PULSE 78; RESP 18; TEMP 36.9; O2SAT 100
[2023-08-07] MEDS: Atorvastatin Calcium 80 MG Tablet PO (22:18)
[2023-08-07 23:35] VITALS: O2SAT 98
[2023-08-08] VITALS (9 sets, daily range): BP systolic 104–149; BP diastolic 50–92; PULSE 66–87; RESP 18; TEMP 36.1–37; O2SAT 95–99; BMI 41.4
[2023-08-08 05:09] LABS: Absolute Lymphocyte Count 1.84 X10^3/uL (0.83-4.51); Basophil# 0.02 X10^3/uL; Basophil% 0.3 % (0-1); Eosinophil# 0.15 X10^3/uL; Eosinophils% 2.3 % (0-5); Hematocrit 31.9 % (37-47); Hemoglobin 9.7 g/dL (12.0-15.0); Lymphocyte # 1.84 X10^3/ul (0.83-4.51); Lymphocyte % 28.5 % (19-41); Mean Corp Hgb Conc 30.4 g/dL (32-36); Mean Corpuscular Hgb 27.2 pg (27.0-32.0); Mean Corpuscular Volume 89.4 fL (81-99); Mean Platelet Vol. 10.4 fl (6.2-12.0); Monocyte# 0.46 X10^3/uL; Monocyte% 7.1 % (0-10); NRBC Flagged by Analyzer 0 % (0-5); Neutrophil # 3.96 X10^3/uL (2.7-7.7); Neutrophil % 61.5 % (47-70); Platelet Count 246 K/mm3 (150-450); RBC Distribution Width CV 13.5 % (11.6-14.6); RBC Distribution Width SD 44.7 fl (35.1-43.9); Red Blood Count 3.57 M/mm3 (4.2-5.4); White Blood Count 6.5 K/mm3 (4.4-11.0)
[2023-08-08 05:29] LABS: Troponin-I HS 15 pg/mL (3.0-54.0)
[2023-08-08 05:47] LABS: Anion Gap 4 (5-15); BUN 42 mg/dL (7-18); BUN/Creat Ratio 26.4 RATIO (10-20); Calcium,Total 8.7 mg/dL (8.5-10.1); Chloride 116 mmol/L (98-107); Cholesterol 148 mg/dL (200); Creatinine, Serum 1.59 mg/dL (0.55-1.02); EST Glomerular Filtration Rate 34 mL/min (>60); Est Glom Filt Rate - Afr Amer 41 mL/min (>60); Estimated Creatinine Clearance 38.91 ml/min; Glucose 110 mg/dL (74-106); High Density Lipoprotein 48 mg/dL; Potassium 4.3 mmol/L (3.5-5.1); Sodium Level 144 mmol/L (136-145); Triglycerides 90 mg/dL; Very Low Density Lipoprotein 18 mg/dL (5-40)
[2023-08-08 07:10] LABS: Troponin-I HS 15 pg/mL (3.0-54.0)
--- NOTE | 2023-08-08 09:00 | MRI_ITS ---
We are attempting to reach an attending provider to discuss findings. An addendum with communication details will be sent when the communication is complete. EXAM: MR HEAD WITHOUT INTRAVENOUS CONTRAST CLINICAL INDICATION: TIA difficulty talking, blurred vision TECHNIQUE: Multiplanar and multisequence MR images of the brain were obtained without intravenous contrast. COMPARISON: MRI brain without contrast 10/01/2018. CT head without contrast 08/07/2023. FINDINGS: BRAIN AND EXTRA-AXIAL SPACES: Suspicious small diffusion restriction in the cortex of the right frontal lobe (series 4, image 18). This is not T2 sign through on the ADC map but difficult to confirm a small area of hypointensity on the ADC map. No intra- or extra-axial hemorrhage. No evidence of acute infarct. No intracranial mass or mass effect. There is preservation of the carrillo/white matter interface. Posterior fossa structures are unremarkable. Ventricles are appropriate for age. No hydrocephalus. Basal cisterns are patent. SELLA: Unremarkable. Normal sella turcica, pituitary gland, infundibular stalk, optic chiasm and hypothalamus. AUDITORY SYSTEM: Unremarkable. The internal auditory canals are patent. BONES/JOINTS: Unremarkable. No discrete lytic or blastic abnormalities. SINUSES: Unremarkable as visualized. Clear. MASTOID AIR CELLS: Unremarkable as visualized. Clear. ORBITS: Unremarkable as visualized. Both globes, extraocular muscles, optic nerves and retrobulbar fat appear unremarkable. VASCULATURE: Unremarkable as visualized. Normal flow voids in the major intracranial circulation. MRI/Brain without Contrast IMPRESSION: Suspicious acute lacunar ischemic infarct in the right frontal lobe cortex (series 4, image 18). No other additional findings or changes when compared to 10/01/2018. Electronically Signed: Roberto Hernández MD at 15:18 EST ,
[2023-08-08] MEDS: Aspirin 81 MG TAB.CHEW PO (09:30)
[2023-08-08 11:15] LABS: Troponin-I HS 15 pg/mL (3.0-54.0)
[2023-08-08] MEDS: LORazepam 2 MG/ML Syringe 1 MG IV (13:38)
[2023-08-08] MEDS: 0.9% Saline Lock 10 ML Syringe IV (13:38)
--- NOTE | 2023-08-08 15:02 | CHAPLAIN ---
Type of Pastoral Visit _x__ Initial Visit ___ Follow-up Visit ___ On-call Visit ___ General Patient Visit ___ Spiritual Assessment ___ Family Conference ___ Bereavement ___ Rapid Response ___ Code Blue ___ Other (describe below) Pastoral Care Referral From _x__ Patient ___ Family ___ Nurse ___ Physician ___ Healthcare Business Analyst ___ Development Planner ___ Other (describe below) Sacrament/Intervention ___ Active listening ___ Anointing ___ Methodist ___ Bereavement ___ Communion ___ Kelsi exploration ___ ___ Life review ___ Prayer ___ Reconciliation ___ Sacrament of Sick ___ Supportive presence ___ Wedding _x__ Other (describe below) Pastoral Comments patient is out of the room for an MRI; spouse is sitting in the room and is welcoming of visit; spouse gives status and situation of the patient and their lives together for 55 years; some life review; spouse admits that pt had some anxiety but other than that there is no indication of need or concern;
--- NOTE | 2023-08-08 16:36 | CASEMGMT ---
Met with patient to complete SKINNER form. SKINNER form explained to patient who voiced understanding and signed form. Original form placed in pt?s chart and copy provided to?patient. Yumiko Swain, Discharge Planning Asst
--- NOTE | 2023-08-08 19:08 | PN.HOSP_ITS ---
Reason for Visit Reason for Visit: Diagnoses Unspecified symptoms and signs involving the nervous system (08/07/23) Subjective Subjective Patient seen at bedside this morning, present. Sitting up comfortably in bed, conversing normally, no acute distress. Patient denies any speech difficulty, numbness/tingling or weakness this morning. States she had a brief episode of aphasia and decreased sensation around her chin for about 5 minutes prior to admission, no further symptoms since then. No other acute concerns this morning. Objective Data Objective Data Vital Signs: Vital Signs Temp Pulse Resp BP Pulse Ox O2 Del Method 98.2 F 87 18 136/92 H 99 Room Air 08/08/23 16:00 08/08/23 16:00 08/08/23 16:00 08/08/23 16:00 08/08/23 16:00 08/08/23 16:00 Oxygen Delivery Method Room Air Weight: 113 kg Body Mass Index (BMI) 41.4 Lab / Micro Data 08/08/23 04:55 08/08/23 04:55 Labs: Laboratory Results - last 24 hr 08/07/23 18:25: Hemoglobin A1c 5.5 08/08/23 04:55: WBC 6.5, RBC 3.57 L, Hgb 9.7 L, Hct 31.9 L, MCV 89.4, MCH 27.2, MCHC 30.4 L, RDW Std Deviation 44.7 H, RDW Coeff of Jaye 13.5, Plt Count 246, MPV 10.4, Immature Gran % (Auto) 0.300, Neut % (Auto) 61.5, Lymph % (Auto) 28.5, [place] % (Auto) 7.1, Eos % (Auto) 2.3, Baso % (Auto) 0.3, Absolute Neuts (auto) 4.0, Absolute Lymphs (auto) 1.84, Nucleated RBC % 0, Sodium 144, Potassium 4.3, Chloride 116 H, Carbon Dioxide 24.0, Anion Gap 4 L, BUN 42 H, Creatinine 1.59 H, Estim Creat Clear Calc 38.91, Est GFR (MDRD) Af Amer 41 L, Est GFR (MDRD) Non-Af 34 L, BUN/Creatinine Ratio 26.4 H, Glucose 110 H, Calcium 8.7, Troponin I High Sens 15, Triglycerides 90, Cholesterol 148, LDL Cholesterol 82, VLDL Cholesterol 18, HDL Cholesterol 48 08/08/23 06:00: Troponin I High Sens 15 08/08/23 10:40: Troponin I High Sens 15 Radiography Diagnostic Testing: Radiology Impression Brain CT 08/07/23 18:15 IMPRESSION: Normal Brain CT without contrast. Electronically Signed: Brenda Lee MD at 19:18 EST , ADDENDUM: 08/07/231928 IMPRESSION: Normal Brain CT without contrast. N.B. : The above Results were Read Back by Brenda Lee MD to Christopher Gao DO, and understanding confirmed on 08/07/2023 19:22:22 (ET). Electronically Signed: Brenda Lee MD at 19:18 EST , Chest X-Ray 08/07/23 19:08 IMPRESSION: No acute cardiopulmonary disease. Electronically Signed: Brenda Lee MD at 19:24 EST , Carotid Duplex 08/07/23 21:22 Interpretation Summary Normal right extracranial internal carotid. Normal left extracranial internal carotid. Patent and antegrade vertebrals bilaterally. Ordering Physician: Vandana Bishop Referring Physician: Patricia Becker M.D. Performed By: Margarita Nielsen RVT Echocardiogram 08/07/23 21:22 Interpretation Summary Normal LV size. Left ventricular systolic function is normal. The estimated ejection fraction is 55 %. Stage 1 diastolic dysfunction. The left atrium is mildly enlarged. Pulmonary artery systolic pressure is 32 mmHg. Ordering Physician: Vandana Bishop Referring Physician: Patricia Becker M.D. Performed By: Jose Enrique Sabillon RCS Brain MRI 08/08/23 09:00 IMPRESSION: Suspicious acute lacunar ischemic infarct in the right frontal lobe cortex (series 4, image 18). No other additional findings or changes when compared to 10/01/2018. Electronically Signed: Roberto Hernández MD at 15:18 EST , ADDENDUM: 08/08/23 1538 IMPRESSION: Suspicious acute lacunar ischemic infarct in the right frontal lobe cortex (series 4, image 18). No other additional findings or changes when compared to 10/01/2018. Electronically Signed: Roberto Hernández MD at 15:18 EST , Physical Exam Const alert, oriented x3 and no apparent distress Constitutional Narrative: Pleasant elderly female, obese, sitting comfortably in bed, conversing normally, no acute distress. General Appearance: cooperative and comfortable HEENT normocephalic, head/scalp atraumatic, hearing grossly normal bilaterally, nasal mucous membranes and turbinates normal and moist oral mucous membranes Eyes PERRL, EOMs intact bilaterally and conjunctivae normal Neck full ROM, no lymphadenopathy and supple Lymph Lymphatic: no lymphadenopathy noted Chest inspection of chest normal Resp normal respiratory effort, normal air movement, no use of accessory muscles and clear to auscultation bilaterally Cardio regular rate, regular rhythm, no murmurs and peripheral pulses 2+ throughout GI normal to inspection, nondistended, normoactive bowel sounds, soft to palpation, non-tender and non-distended Back/Spine normal ROM Extremity normal to inspection, full ROM and no pedal edema Skin no rashes or lesions noted Neuro moves all extremities, no focal motor deficits and no sensory deficits noted Speech: speech normal Psych mental status grossly normal Assessment & Plan Assessment/Plan (1) Acute CVA (cerebrovascular accident): PLAN: Plan Patient is a 73yo female who presented to [facility] ED on 08/07/2023 with strokelike symptoms. 1. Acute CVA Reported episode of aphasia and chin numbness/tingling for 5 minutes leading to this admission. CT brain nonacute, carotid ultrasound normal. Echo showed EF 55%, stage I diastolic dysfunction, mildly enlarged LA, no other abnormalities. MRI brain 08/08 showed suspicious acute lacunar infarct in right frontal lobe cortex. Telemetry showed sinus rhythm, no episodes of Afib through 08/08. - Neurology consulted. Suspect this may be an embolic stroke secondary to undiagnosed Afib, given echo findings and territory of stroke. If no Afib identified while inpatient, will likely need monitor on discharge. Okay for aspirin and statin for now. May need to discuss risks/benefits of anticoagu lation if Afib thought by Neurology to be most likely etiology. PT/OT/TECHNICIAN PLANT AND MAINTENANCE/CM following. 2. Hypertension - Holding home losartan and HCTZ, restart when able. DVT ppx: SCDs Code status: Full code, verified Expected disposition: Home, 1-2 days Total clinical time spent by myself addressing the patient's medical issues, reviewing all the data, and collaborating with patient's care team: 35 minutes. Charges/Coding Visit Charges Inpatient E&M: 36735 Subs Hosp L2
[2023-08-08] MEDS: Atorvastatin Calcium 80 MG Tablet PO (21:25)
[2023-08-09 01:31] VITALS: BP 137/52; PULSE 79; RESP 18; TEMP 36.7; O2SAT 95
[2023-08-09 05:36] VITALS: BP 118/61; PULSE 75; RESP 18; TEMP 36.4; O2SAT 98
[2023-08-09] MEDS: Aspirin 81 MG TAB.CHEW PO (07:41)
[2023-08-09 07:46] VITALS: O2SAT 97
[2023-08-09 09:30] VITALS: BP 145/90; PULSE 82; RESP 14; TEMP 36.8; O2SAT 98
--- NOTE | 2023-08-09 10:53 | CASEMGMT ---
ANAHI MOORE NOTE: ANAHI MOORE to room. Pt resting in bed. @ bedside. Introduced self and role. Discussed discharge planning. Stroke symptoms have resolved and she has been up independently in room. ANAHI MOORE will follow for possible anti-coag @ discharge. Pt denies having any concerns w/discharging home and denies needs. Opal ROSENBERG RN, CM
[2023-08-09 13:27] VITALS: BP 114/64; PULSE 83; RESP 14; TEMP 36.6; O2SAT 98
--- NOTE | 2023-08-09 14:53 | PCM.DC ---
Discharge Instructions Diet Discharge Diet: No restrictions Activity Discharge Activity: No Restrictions Follow Up Care Please Follow Up With: Patricia Becker DO When: As needed Test Results: Test results from this visit will be discussed in further detail at your follow-up appointment, if applicable. Pending Tests Upon Discharge: None Discharge Plan Admission Admit Date/Time: 08/07/23 19:52 Primary Reason for Your Visit: Strokelike symptoms Attending Provider: Mike Taveras Primary Care Provider: Patricia Becker Consulting Providers: Vandana Bishop; Brandon Hassan; Roney Chadwick; Shagufta Lee; Yancy Bond; Jennifer Bauer; Dmitriy Curiel; Juliann Damico; Delano Jansen; Troy Núñez; Petrona Rviera; Jensen Bass; Sharmin Acevedo; Don Hurst; Shivani Mcgowan; Brandon Bernstein; Shahzad Ocampo; Aung Altamirano; Claudia Gonzales; Yue Victor Discharge Orders/Prescriptions Prescriptions: New atorvastatin 80 mg Tablet 80 mg PO QHS 90 Days Qty: 90 3RF aspirin 81 mg Tablet,Chewable 81 mg PO BREAKFAST 90 Days Qty: 90 3RF Continued cyanocobalamin (vitamin B-12) [Vitamin B-12] 2,500 mcg tablet, sublingual 2,500 mcg PO MOWEFR losartan 25 mg tablet 25 mg PO DAILY hydrochlorothiazide 12.5 mg tablet 12.5 mg PO DAILY Discontinued hydrochlorothiazide 12.5 mg capsule 12.5 mg PO DAILY Other Ambulatory Orders: 14 Day Event Recorder Preventi (Urgent) Timeframe: 1 Day Facility: [facility] - Location: Cardiovascular Services Ordered By: Dr. Mike Taveras Referrals / Follow Up: Patricia Becker DO [Primary Care Provider] - Disposition Disposition (needs filled in before D/C Order can be placed): Home, Self Care
--- NOTE | 2023-08-09 14:58 | DS.PCM_ITS ---
Providers Date of Admission: 08/07/23 Date of Discharge: 08/09/23 Primary Care Physician: Dr. Patricia Becker, Consultations 08/08/23 16:37 Consult: Tele-Neurology Routine Consulting Provider: [facility] Reason for Consult: acute CVA EMERGENT Consult: No MD Notified: Yes Date Notified: 08/08/23 Time Notified: 16:37 Method of Notification: Answering Service Nursing Unit Staff Notify [facility] of Tele-Neurology Consult: Yes Reason For Visit: TIA Diagnosis Discharge Diagnosis (1) TIA (transient ischemic attack): Status: Acute Code(s): G45.9 - Transient cerebral ischemic attack, unspecified (2) CKD (chronic kidney disease) stage 3, GFR 30-59 ml/min: Status: Chronic Code(s): N18.30 - Chronic kidney disease, stage 3 unspecified Medications at Discharge Home Medications hydrochlorothiazide 12.5 mg tablet 12.5 mg PO DAILY BLOOD PRESSURE 01/25/21 cyanocobalamin (vitamin B-12) 2,500 mcg sublingual tablet (Vitamin B-12) 2,500 mcg PO MOWEFR SUPPLEMENT 10/18/21 losartan 25 mg tablet 25 mg PO DAILY BLOOD PRESSURE 10/18/21 aspirin 81 mg chewable tablet 81 mg PO BREAKFAST 90 days #90 tabs 08/09/23 atorvastatin 80 mg tablet 80 mg PO QHS 90 days #90 tabs 08/09/23 Hospital Course Operations None Procedures EKG, Transthoracic echo and - (CT brain without contrast, MRI brain without contrast, carotid duplex ultrasound, chest x-ray) Summary of Care Provided Minutes Spent on Discharge: 35 Hospital Course: Patient is a 73yo female who presented to [facility] ED on 08/07/2023 with strokelike symptoms. 1. TIA Reported episode of aphasia and chin numbness/tingling for 5 minutes leading to this admission. CT brain nonacute, carotid ultrasound normal. Echo showed EF 55%, stage I diastolic dysfunction, mildly enlarged LA, no other abnormalities. MRI brain 08/08 showed suspicious acute lacunar infarct in right frontal lobe cortex. Telemetry showed sinus rhythm, no episodes of Afib during admission. A1c 5.5%. LDL 82. ? Neurology followed. Noted that patient very likely had a TIA. Recommended that patient's start aspirin 81 mg daily and atorvastatin 80 mg daily on discharge. Goal LDL less than 70, recheck lipid panel in 3 to 6 months. Discharged with 30-day heart monitor to rule out A-fib. CTA head/neck was also recommended, but was deferred during the admission given patient's borderline kidney function, can consider doing in outpatient setting as needed. Outpatient follow-up with neurology in 4 to 6 weeks and PCP in 2 weeks. 2. CKD stage IIIb ? Baseline creatinine 1.5-1.8, estimated GFR ~30-35. Creatinine 1.82 on admit, improved to 1.59 on hospital day 2. Outpatient follow-up as needed. 3. Hypertension ? Held home losartan and hydrochlorothiazide during admission, okay to restart on discharge. 4. Morbid obesity ? BMI 41 on admit. Encouraged lifestyle modifications. Complicated hospital course, care and prognosis. Total clinical time spent by myself addressing the patient's discharge needs: 35 minutes. Physical Exam Const alert, oriented x3 and no apparent distress Constitutional Narrative: Pleasant elderly female, obese, sitting comfortably in bed, conversing normally, no acute distress. General Appearance: cooperative and comfortable HEENT normocephalic, head/scalp atraumatic, hearing grossly normal bilaterally, nasal mucous membranes and turbinates normal and moist oral mucous membranes Eyes PERRL, EOMs intact bilaterally and conjunctivae normal Neck full ROM, no lymphadenopathy and supple Lymph Lymphatic: no lymphadenopathy noted Chest inspection of chest normal Resp normal respiratory effort, normal air movement, no use of accessory muscles and clear to auscultation bilaterally Cardio regular rate, regular rhythm, no murmurs and peripheral pulses 2+ throughout GI normal to inspection, nondistended, normoactive bowel sounds, soft to palpation, non-tender and non-distended Back/Spine normal ROM Extremity normal to inspection, full ROM and no pedal edema Skin no rashes or lesions noted Neuro moves all extremities, no focal motor deficits and no sensory deficits noted Speech: speech normal Psych mental status grossly normal Weight / BMI Weight Weight: 113 kg Body Mass Index (BMI) 41.4 ABG / Lab / Microbiology Data 08/08/23 04:55 08/08/23 04:55 Radiography Diagnostic Testing: Radiology Impression Echocardiogram 08/07/23 21:22 Interpretation Summary Normal LV size. Left ventricular systolic function is normal. The estimated ejection fraction is 55 %. Stage 1 diastolic dysfunction. The left atrium is mildly enlarged. Pulmonary artery systolic pressure is 32 mmHg. Ordering Physician: Vandana Bishop Referring Physician: Patricia Becker M.D. Performed By: Jose Enrique Sabillon RCS Brain MRI 08/08/23 09:00 IMPRESSION: Suspicious acute lacunar ischemic infarct in the right frontal lobe cortex (series 4, image 18). No other additional findings or changes when compared to 10/01/2018. Electronically Signed: Roberto Hernández MD at 15:18 EST , ADDENDUM: 08/08/23 1538 IMPRESSION: Suspicious acute lacunar ischemic infarct in the right frontal lobe cortex (series 4, image 18). No other additional findings or changes when compared to 10/01/2018. Electronically Signed: Roberto Hernández MD at 15:18 EST , D/C Instructions Discharge Diet: No restrictions Pending Tests Upon Discharge: None Please Follow Up With: Patricia Becker DO When: As needed Meaningful Use Info Meaningful Use Diagnoses (Choose all that apply): None applicable Discharge Plan Admission Admit Date/Time: 08/07/23 19:52 Primary Reason for Your Visit: Strokelike symptoms Attending Provider: Mike Taveras Primary Care Provider: Patricia Becker Consulting Providers: Vandana Bishop; Brandon Hassan; Roney Chadwick; Shagufta Lee; Yancy Bond; Jennifer Bauer; Dmitriy Curiel; Juliann Damico; Delano Jansen; Troy Núñez; Petrona Rivera; Jensen Bass; Sharmin Acevedo; Don Hurst; Shivani Mcgowan; Brandon Bernstein; Shahzda Ocampo; Aung Altamirano; Claudia Gonzales; Yue Victor Discharge Orders/Prescriptions Prescriptions: New atorvastatin 80 mg Tablet 80 mg PO QHS 90 Days Qty: 90 3RF aspirin 81 mg Tablet,Chewable 81 mg PO BREAKFAST 90 Days Qty: 90 3RF Continued cyanocobalamin (vitamin B-12) [Vitamin B-12] 2,500 mcg tablet, sublingual 2,500 mcg PO MOWEFR losartan 25 mg tablet 25 mg PO DAILY hydrochlorothiazide 12.5 mg tablet 12.5 mg PO DAILY Discontinued hydrochlorothiazide 12.5 mg capsule 12.5 mg PO DAILY Other Ambulatory Orders: 14 Day Event Recorder Preventi (Urgent) Timeframe: 1 Day Facility: [facility] - Location: Cardiovascular Services Ordered By: Dr. Mike Taveras Referrals / Follow Up: Patricia Becker DO [Primary Care Provider] - (office closed at this time. Please call to schedule appointment) Disposition Disposition (needs filled in before D/C Order can be placed): Home, Self Care Charges/Coding Visit Charges Inpatient E&M: 08361 Disch Hosp >30min
--- NOTE | 2023-08-09 15:58 | PHA.DC.MC.R ---
Pharmacy [facility] has performed discharge medication reconciliation and counseling for this patient. The patient's discharge medication list was reviewed for discrepancies and discrepancies were resolved. The patient was counseled on the following discharge medications and changes in medications for homegoing were reviewed. The Reason for Use, instructions for use, and potential side effects were reviewed for all new medications. The patient's questions regarding all of their medications were answered. 1. Aspirin 81 mg PO daily 2. Atorvastatin 80 mg PO QHS The patient was able to verbally demonstrate an understanding of their discharge medications. Medications at Discharge Home Medications hydrochlorothiazide 12.5 mg tablet 12.5 mg PO DAILY BLOOD PRESSURE 01/25/21 cyanocobalamin (vitamin B-12) 2,500 mcg sublingual tablet (Vitamin B-12) 2,500 mcg PO MOWEFR SUPPLEMENT 10/18/21 losartan 25 mg tablet 25 mg PO DAILY BLOOD PRESSURE 10/18/21 aspirin 81 mg chewable tablet 81 mg PO BREAKFAST 90 days #90 tabs 08/09/23 atorvastatin 80 mg tablet 80 mg PO QHS 90 days #90 tabs 08/09/23
[2023-08-09 17:10] VITALS: BMI 41.4
--- NOTE | 2023-08-09 19:30 | CON.PCM.NE_ITS ---
Assessment and Plan: Stroke Assessment/Plan Ms. Sesay is a 73 yo F presenting with transient inability to express lasting for a few minutes. Now back to baseline. History concerning for TIA. MRI brain showed potential punctate area of acute infarction in the R frontal lobe. Likely had a TIA. I recommend she take ASA 81 and atorvastatin 80. Hba1c is 5.5 and LDL 82. Goal LDL should be <70 and this will need to be followed as an outpatient. Blood pressure goal is normotension (120/80). The patient does not smoke. TTE and carotid doppler were unremarkable. I do recommend a CTA head to evaluate for ICAD as a potential etiology as well. The patient should be discharged with a 30 day monitoring engineer. She will need outpatient follow up with neurology in 4-6 weeks and PCP in 2 weeks. HPI Consult Data Date of Consult: 08/09/23 HPI Narrative HPI Narrative: 73yo F w PMH of BPPV, CKD, HTN who presented with difficulty speaking. Was shopping during the day and felt fine. After she returned back home, she felt her eyes were blurry and her jaw felt tingly and had trouble speaking. [place] like she couldn?t get words out but knew what she wanted to say. Entire episode last 5-7 minutes. Daughter who witnessed the episode said her words were slurred, had difficulty moving mouth and L facial drooping. [place] normal by the time EMS arrived. No weakness, numbness, headache no vision loss. No prior similar episodes in the past. [facility] Medical History (Updated 08/08/23 @ 23:[address] Mike Taveras, DO) Benign paroxysmal positional vertigo CKD (chronic kidney disease) stage 3, GFR 30-59 ml/min Essential hypertension Non-rheumatic mitral valve stenosis Premature ventricular contraction Pulmonary hypertension Vertigo Home Medications hydrochlorothiazide 12.5 mg tablet 12.5 mg PO DAILY BLOOD PRESSURE 01/25/21 [History Last Taken Unknown] cyanocobalamin (vitamin B-12) 2,500 mcg sublingual tablet (Vitamin B-12) 2,500 mcg PO MOWEFR SUPPLEMENT 10/18/21 [History Last Taken Unknown] losartan 25 mg tablet 25 mg PO DAILY BLOOD PRESSURE 10/18/21 [History Last Taken Unknown] aspirin 81 mg chewable tablet 81 mg PO BREAKFAST 90 days #90 tabs 08/09/23 [Rx Last Taken Unknown] atorvastatin 80 mg tablet 80 mg PO QHS 90 days #90 tabs 08/09/23 [Rx Last Taken Unknown] Allergy/AdvReac Type Severity Reaction Status Date / Time poison brandee extract Allergy Rash Verified 08/07/23 17:49 poison oak extract Allergy Rash Verified 08/07/23 17:49 Family History Mother Diabetes Hypertension Surgical History History of cholecystectomy (~2008) Social History (Updated 08/07/23 @ 21:38 by Roro Fisher) household members: spouse housing: other number of children: 2 pets and animals: No Smoking Status: Never smoker alcohol intake: current details: occasional substance use type: does not use caffeine: Yes Type: carbonated beverages Vital Signs Vital Signs Vital Signs: 08/08/23 21:23 08/08/23 21:32 08/08/23 21:34 Temperature 97.0 F L Temperature Source Temporal Pulse Rate 76 Pulse Strength Normal (2+) Respiratory Rate 18 Respiratory Effort Normal Non-Labored Respiratory Depth Normal Respiratory Pattern Normal Blood Pressure 131/66 H Blood Pressure Mean 87 Blood Pressure Source Monitor Blood Pressure Position Semi-Fowlers Blood Pressure Location Left Arm Pulse Ox 97 Oxygen Delivery Method Room Air Room Air 08/09/23 01:31 08/09/23 01:35 08/09/23 05:36 Temperature 98.0 F 97.6 F L Temperature Source Oral Oral Pulse Rate 79 75 Pulse Strength Respiratory Rate 18 18 Respiratory Effort Normal Non-Labored Respiratory Depth Normal Respiratory Pattern Normal Blood Pressure 137/52 H 118/61 Blood Pressure Mean 80 80 Blood Pressure Source Monitor Monitor Blood Pressure Position Supine Supine Blood Pressure Location Right Arm Right Arm Pulse Ox 95 98 Oxygen Delivery Method Room Air Room Air Room Air 08/09/23 07:32 08/09/23 09:30 08/09/23 07:46 Temperature 98.2 F Temperature Source Oral Pulse Rate 82 Pulse Strength Respiratory Rate 14 Respiratory Effort Normal Non-Labored Respiratory Depth Normal Respiratory Pattern Normal Blood Pressure 145/90 H Blood Pressure Mean 108 Blood Pressure Source Monitor Blood Pressure Position Sitting Blood Pressure Location Left Forearm Pulse Ox 98 97 Oxygen Delivery Method Room Air Room Air Room Air 08/09/23 13:27 08/09/23 14:40 Temperature 98 F Temperature Source Oral Pulse Rate 83 Pulse Strength Respiratory Rate 14 Respiratory Effort Normal Non-Labored Respiratory Depth Normal Respiratory Pattern Normal Blood Pressure 114/64 Blood Pressure Mean 80 Blood Pressure Source Monitor Blood Pressure Position Semi-Fowlers Blood Pressure Location Right Forearm Pulse Ox 98 Oxygen Delivery Method Room Air Room Air Weight Weight: 113 kg Body Mass Index (BMI) 41.4 EEG Results Procedure Details EEG Procedure Details: ROGE SESAY is a 73 year old F with a past medical history of , who presents for evaluation of Electroencephalogram on DATE at TIME NIHSS NIHSS Nursing Documentation NIHSS Nursing Documentation: NIH Stroke Scale Start: 08/07/23 18:01 Freq: Status: Discharge Protocol: Activity Type Activity Date Activity User E-sign Co-sign Detail Recorded Client Recorded Date Recorded By Document 08/07/23 19:00 LSS Desktop 08/07/23 20:21 LSS 08/07/23 19:00 NIH Stroke Scale [NIHSS] A score of 0 is normal or asymptomatic . Total possible score is 42. Inpatient: RN or Physician to activate a stroke alert for onset of new stroke symptoms or with NIHSS increase >/= 3 points. Following change in neurological status, NIHSS will be performed per physician order or more frequently PRN. -1a. Level of Consciousness Alert; keenly responsive -1b. LOC Questions Answers BOTH questions correctly. -1c. LOC Commands Performs both tasks correctly . -2. Best Gaze Normal -3. Visual No visual loss -4. Facial Palsy Normal symmetrical movements -5a. Left Arm No drift; arm holds 90 (or 45 ) degrees for full 10 seconds -5b. Right Arm No drift; arm holds 90 (or 45 ) degrees for full 10 seconds -6a. Left Leg No drift; leg holds 30-degree position for full 5 seconds -6b. Right Leg No drift; leg holds 30-degree position for full 5 seconds -7. Limb Ataxia Absent -8. Sensory Normal; no sensory loss -9. Best Language No aphasia; normal -10. Dysarthria Normal -11. Extinction and Inattention No abnormality -Total 0 Query Text:A score of 0 is normal or asymptomatic. Total possible score is 42 . ED: Notify Physician for NIHSS increase by > / = 3 points. Inpatient: RN or Physician to activate a stroke alert for NIHSS increase of > / = 3 points. NIHSS: Ischemic Stroke/TIA Start: 08/07/23 21:22 Text: For PCU Patients: NIH and Neuro Check every 4 Status: Discharge hours and PRN Freq: [id number] Protocol: Activity Type Activity Date Activity User E-sign Co-sign Detail Recorded Client Recorded Date Recorded By Document 08/09/23 13:14 DS Desktop 08/09/23 13:14 DS 08/09/23 13:14 -1a. Level of Consciousness Alert; keenly responsive -1b. LOC Questions Answers BOTH questions correctly. -1c. LOC Commands Performs both tasks correctly . -2. Best Gaze Normal -3. Visual No visual loss -4. Facial Palsy Normal symmetrical movements -5a. Left Arm No drift; arm holds 90 (or 45 ) degrees for full 10 seconds -5b. Right Arm No drift; arm holds 90 (or 45 ) degrees for full 10 seconds -6a. Left Leg No drift; leg holds 30-degree position for full 5 seconds -6b. Right Leg No drift; leg holds 30-degree position for full 5 seconds -7. Limb Ataxia Absent -8. Sensory Normal; no sensory loss -9. Best Language No aphasia; normal -10. Dysarthria Normal -11. Extinction and Inattention No abnormality -Total 0 Query Text:A score of 0 is normal or asymptomatic. Total possible score is 42 . ED: Notify Physician for NIHSS increase by > / = 3 points. Inpatient: RN or Physician to activate a stroke alert for NIHSS increase of > / = 3 points. Coma Scale [Assess] -Eye Opening Spontaneous -Motor Obeys Commands -Verbal Oriented [Total] -Coma Scale Total 15 Physical Exam Narrative MS- awake, alert, oriented x 3, fluent speech following commands, able to name, no aphasia, no neglect, no dysarthria CN-VFF, EOMI, no gaze deviation, no facial droop, nml facial sensation M- 5/5 strength in all ext no drift S- nml to LT C no ataxia Lab / Micro Data 08/08/23 04:55 08/08/23 04:55
== END 2023-08-09 14:59 | disposition home or self-care (01) ==
LOC: ED 19:28 → PCU 20:12
PROVIDERS: Admitting Provider Student in an Organized Health Care Education/Training Program; Emergency Provider Emergency Medicine; PCP Internal Medicine; Visit Provider Hospitalist
DX: G45.9 Transient cerebral ischemic attack, unspecified (principal); E66.01 Morbid (severe) obesity due to excess calories; Z68.41 Body mass index [BMI] 40.0-44.9, adult; N18.32 Chronic kidney disease, stage 3b; I12.9 Hypertensive chronic kidney disease with stage 1 through stage 4 chronic kidney disease, or unspecified chronic kidney disease; R47.01 Aphasia; R20.0 Anesthesia of skin; R20.2 Paresthesia of skin; Z79.899 Other long term (current) drug therapy
CPT/HCPCS: 36415; 70450; 70551; 71045; 80048; 80061; 83036; 84484; 85025; 85610; 85730; 92523; 93005; 93306; 93880; 94762; 96374; 99221; 99285; Q9957; A4216; G0378

== ENCOUNTER 2023-08-14 16:22 | Emergency (ER) | payer MEDICARE, OTHER, SELFPAY ==
[2023-08-14] VITALS (12 sets, daily range): BP systolic 144–161; BP diastolic 74–86; PULSE 73–82; RESP 11–20; TEMP 36.8; O2SAT 97–99; BMI 42.0
--- NOTE | 2023-08-14 17:27 | EKG12_ITS ---
Test Reason : NEURO Blood Pressure : / mmHG Vent. Rate : 082 BPM Atrial Rate : 082 BPM P-R Int : 148 ms QRS Dur : 082 ms QT Int : 374 ms P-R-T Axes : -03 010 010 degrees QTc Int : 436 ms Sinus rhythm Nonspecific ST and T wave abnormality Abnormal ECG Confirmed by LOVE PARSONS, TRU ([id number]), technical writer and editor JAVID RUSHING ([id number]) on 08/16/2023 9:45:55 AM Referred By: Confirmed By:TRU ALEMAN MD
--- NOTE | 2023-08-14 17:27 | CT_ITS ---
EXAM: CT HEAD WITHOUT INTRAVENOUS CONTRAST CLINICAL INDICATION: Neuro deficit, acute, stroke suspected TECHNIQUE: Multiple axial images were obtained of the head without intravenous contrast. This CT exam was performed using one or more of the following dose reduction techniques: automated exposure control, adjustment of the mA and/or kV according to patient size, and/or use of iterative reconstruction technique. COMPARISON: 08/07/2023 FINDINGS: BRAIN AND EXTRA-AXIAL SPACES: Unremarkable. No intra- or extra-axial hemorrhage. No evidence of acute infarct. No intracranial mass or mass effect. There is preservation of the carrillo/white matter interface. Posterior fossa structures are unremarkable. Ventricles are appropriate for age. No hydrocephalus. Basal cisterns are patent. BONES/JOINTS: Unremarkable. No discrete lytic or blastic abnormalities. SINUSES: Unremarkable as visualized. Clear. MASTOID AIR CELLS: Unremarkable. Clear. ORBITS: Visualized globes, extraocular muscles, optic nerves and retrobulbar fat appear unremarkable. CT/Brain/Head without Contrast IMPRESSION: Negative head/brain CT without intravenous contrast. There has been no change from the reference exam. Electronically Signed: Bryant Begum MD at 18:28 EST ,
--- NOTE | 2023-08-14 17:28 | ED.VIS.STROK ---
HPI History of Present Illness Chief Complaint: Dizziness Narrative Narrative: 73-year-old female with history of TIA presenting with symptoms of shaking which lasted about 3 hours. States the onset was about 115. She states she was post to go to doctors appoint with her when she was getting ready and she started to shake. She states she never felt cold. She describes it as mild shaking of her arms and legs. She has been awake and alert the whole time. She states that this stopped at about 5:00 while she was sitting in the ER. She states she feels well. She states recently had a TIA in which her symptoms were slurred speech and unable to speak. This lasted about 7 minutes per her. Patient was admitted had an echocardiogram. She also had an MRI. She has been placed on atorvastatin. She also takes 81 mg of aspirin daily. Patient denies history of stroke prior to this. No fevers or chills. No nausea or vomiting. She does state that she had a mild left-sided headache before the shaking symptoms started which is behind her left eye. Patient has a history of migraine headaches or headaches like this. She has no headache currently. Patient reports that on Saturday of this week she had similar episode which lasted a shorter duration and she did not have a headache. She did not get seen for this and has been fine since then. No history of seizure disorder. [facility] Medical History Benign paroxysmal positional vertigo CKD (chronic kidney disease) stage 3, GFR 30-59 ml/min Essential hypertension Non-rheumatic mitral valve stenosis Premature ventricular contraction Pulmonary hypertension TIA (transient ischemic attack) Vertigo Home Medications hydrochlorothiazide 12.5 mg tablet 12.5 mg PO DAILY BLOOD PRESSURE 01/25/21 [History Last Taken Unknown] cyanocobalamin (vitamin B-12) 2,500 mcg sublingual tablet (Vitamin B-12) 2,500 mcg PO MOWEFR SUPPLEMENT 10/18/21 [History Last Taken Unknown] losartan 25 mg tablet 25 mg PO DAILY BLOOD PRESSURE 10/18/21 [History Last Taken Unknown] aspirin 81 mg chewable tablet 81 mg PO BREAKFAST 90 days #90 tabs 08/09/23 [Rx Last Taken Unknown] atorvastatin 80 mg tablet 80 mg PO QHS 90 days #90 tabs 08/09/23 [Rx Last Taken Unknown] Allergy/AdvReac Type Severity Reaction Status Date / Time poison brandee extract Allergy Rash Verified 08/14/23 16:29 poison oak extract Allergy Rash Verified 08/14/23 16:29 Family History Mother Diabetes Hypertension Surgical History History of cholecystectomy (~2008) Social History household members: spouse housing: other number of children: 2 pets and animals: No Smoking Status: Never smoker alcohol intake: current details: occasional substance use type: does not use caffeine: Yes Type: carbonated beverages ROS ROS ED ROS Narrative Shaking Constitutional Constitutional ED: Denies chills, fever(s) or sweats Eyes Eyes: Denies blurry vision or change in vision ENT ENT ED: Denies ear pain or sore throat Cardiovascular Cardiovascular: Denies chest pain, palpitations or racing heartbeat Respiratory/Chest Respiratory/Chest: Denies cough, dyspnea or sputum Gastrointestinal Gastrointestinal: Denies abdominal pain, constipation, diarrhea, nausea or vomiting Genitourinary Genitourinary ED: Denies dysuria, hematuria or urinary frequency Musculoskeletal Musculoskeletal: Denies arthralgias, myalgias or neck pain Integumentary Denies abscess, Abrasions or rash Neurologic Neurologic: Reports headache(s); Denies paresthesias or weakness Psychiatric Psychiatric: Denies anxiety, depression, suicidal ideation or suicidal thoughts Endocrine Endocrinology: Denies polydipsia or polyuria EXAM Physical Exam Const Vital Signs: 08/14/23 16:24 08/14/23 16:35 08/14/23 17:27 Temperature 98.2 F Temperature Source Temporal Pulse Rate 78 Respiratory Rate 13 Respiratory Effort Normal Respiratory Pattern Normal Blood Pressure 161/74 H Blood Pressure Mean 103 Pulse Ox 97 Oxygen Delivery Method Room Air Room Air 08/14/23 20:28 08/14/23 17:15 08/14/23 17:20 Temperature Temperature Source Pulse Rate 82 77 80 Respiratory Rate 16 11 L 16 Respiratory Effort Respiratory Pattern Blood Pressure 144/79 H Blood Pressure Mean 100 Pulse Ox 97 99 98 Oxygen Delivery Method 08/14/23 17:30 08/14/23 17:30 08/14/23 17:40 Temperature Temperature Source Pulse Rate 74 73 Respiratory Rate 14 15 Respiratory Effort Respiratory Pattern Blood Pressure 144/81 H 144/81 H Blood Pressure Mean 100 100 Pulse Ox 99 Oxygen Delivery Method Room Air 08/14/23 17:54 08/14/23 18:00 08/14/23 18:10 Temperature Temperature Source Pulse Rate 78 81 78 Respiratory Rate 20 H 19 H 17 Respiratory Effort Respiratory Pattern Blood Pressure 147/86 H Blood Pressure Mean 101 Pulse Ox 99 98 Oxygen Delivery Method Room Air 08/14/23 18:20 08/14/23 18:30 08/14/23 18:40 Temperature Temperature Source Pulse Rate 76 79 81 Respiratory Rate 15 16 14 Respiratory Effort Respiratory Pattern Blood Pressure 144/79 H Blood Pressure Mean 96 Pulse Ox 97 97 99 Oxygen Delivery Method Positive well nourished General Appearance ED: NAD HEENT Reports moist mucous membranes Eyes PERRL and EOMs intact bilaterally General Eye ED: Negative for pale conjunctiva Chest Wall inspection of chest normal Resp normal respiratory effort and clear to auscultation bilaterally Auscultation: Negative for rales, rhonchi or wheezes GI normal to inspection, nondistended, normoactive bowel sounds Extremity normal to inspection Neuro oriented x3 and CN's II-XII intact bilaterally Sensorium / Orientation: alert Motor Exam: strength 5/5 throughout Psych mental status grossly normal MDM MDM MDM Narrative Medical decision making narrative: 73-year-old female presenting with shaking episode. She states she had 1 of these this week as well. Recently diagnosed with TIA. Patient states her symptoms at that time were slurred speech and inability to speak. Patient had a full workup which was ultimately normal. Denies stroke score of 0. Discussed the possibility of TIA again we did need a workup for this. CT brain was negative. Blood work all and was unremarkable again. Patient's symptom-free while she has been here. Patient did state that her mother had a history of Parkinson's and had shaking episodes similar. Discussed with her primary care who recommended she go to a full-strength aspirin and follow-up with her as an outpatient. I do not believe she needs admitted and the patient is self does not want to be admitted. Return precautions are discussed. Impression: 1. History of TIA 2. shaking episode Lab Data Attestation: I reviewed the patient's lab results. Labs: Laboratory Results - last 24 hr 08/14/23 16:30 WBC 7.2 RBC 3.69 L Hgb 10.2 L Hct 32.9 L MCV 89.2 MCH 27.6 MCHC 31.0 L RDW Std Deviation 44.0 H RDW Coeff of Jaye 13.5 Plt Count 240 MPV 11.3 Immature Gran % (Auto) 0.300 Neut % (Auto) 70.4 H Lymph % (Auto) 21.5 Villalba % (Auto) 5.6 Eos % (Auto) 2.1 Baso % (Auto) 0.1 Absolute Neuts (auto) 5.0 Absolute Lymphs (auto) 1.54 Nucleated RBC % 0 PT 13.6 INR 1.0 APTT 27.3 Sodium 143 Potassium 3.6 Chloride 113 H Carbon Dioxide 26.0 Anion Gap 4 L BUN 28 H Creatinine 1.63 H Estim Creat Clear Calc 38.28 Est GFR (MDRD) Af Amer 40 L Est GFR (MDRD) Non-Af 33 L BUN/Creatinine Ratio 17.2 Glucose 114 H Calcium 9.0 Troponin I High Sens 13 Radiography Diagnostic Testing: Clinical Impression(s) from Imaging Studies Brain CT 08/14/23 17:27 IMPRESSION: Negative head/brain CT without intravenous contrast. There has been no change from the reference exam. Electronically Signed: Bryant Begum MD at 18:28 EST , Chest X-Ray 08/14/23 17:50 IMPRESSION: No radiographic evidence of acute cardiopulmonary disease. Electronically Signed: Bryant Begum MD at 18:45 EST , Discharge Plan Triage Chief Complaint: Dizziness ED Provider: Liam Elliott Dx/Rx/DC Orders Prescriptions: No Action cyanocobalamin (vitamin B-12) [Vitamin B-12] 2,500 mcg tablet, sublingual 2,500 mcg PO MOWEFR losartan 25 mg tablet 25 mg PO DAILY atorvastatin 80 mg Tablet 80 mg PO QHS 90 Days Qty: 90 3RF aspirin 81 mg Tablet,Chewable 81 mg PO BREAKFAST 90 Days Qty: 90 3RF hydrochlorothiazide 12.5 mg tablet 12.5 mg PO DAILY Primary Care Provider: Patricia Becker Referrals: Patricia Becker DO [Primary Care Provider] - Disposition Disposition: Home, Self Care Discharge Date/Time: 08/14/23 20:29 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 Next of kin: [place] law dictates a PRIORITY LIST for identifying legal decision-maker/legal next of kin in the following order (LNOK): 1st: The patient?s legal guardian, if any 2nd: The patient's spouse (if status is questionable, consult Risk Management) 3rd: The patient?s adult child(lambert) (majority, if multiple children) 4th: The patient?s parents 5th: The patient?s adult siblings (majority, if multiple children siblings)
[2023-08-14 17:43] LABS: Absolute Lymphocyte Count 1.54 X10^3/uL (0.83-4.51); Basophil# 0.01 X10^3/uL; Basophil% 0.1 % (0-1); Eosinophil# 0.15 X10^3/uL; Eosinophils% 2.1 % (0-5); Hematocrit 32.9 % (37-47); Hemoglobin 10.2 g/dL (12.0-15.0); Lymphocyte # 1.54 X10^3/ul (0.83-4.51); Lymphocyte % 21.5 % (19-41); Mean Corpuscular Hgb 27.6 pg (27.0-32.0); Mean Corpuscular Volume 89.2 fL (81-99); Mean Platelet Vol. 11.3 fl (6.2-12.0); Monocyte% 5.6 % (0-10); NRBC Flagged by Analyzer 0 % (0-5); Neutrophil # 5.03 X10^3/uL (2.7-7.7); Neutrophil % 70.4 % (47-70); Platelet Count 240 K/mm3 (150-450); RBC Distribution Width CV 13.5 % (11.6-14.6); Red Blood Count 3.69 M/mm3 (4.2-5.4); White Blood Count 7.2 K/mm3 (4.4-11.0)
--- NOTE | 2023-08-14 17:50 | RAD_ITS ---
EXAM: XR CHEST, 1 VIEW CLINICAL INDICATION: Neuro deficit, acute, stroke suspected TECHNIQUE: Frontal view of the chest. COMPARISON: No relevant prior studies available. FINDINGS: LUNGS AND PLEURAL SPACES: Unremarkable. No consolidation or edema. No pneumothorax. No effusion. HEART: Unremarkable. Cardiac silhouette not enlarged. MEDIASTINUM: Central airways and mediastinal contour are unremarkable. BONES/JOINTS: Unremarkable. No acute fracture. SOFT TISSUES: Unremarkable. RAD/Chest 1 View IMPRESSION: No radiographic evidence of acute cardiopulmonary disease. Electronically Signed: Bryant Begum MD at 18:45 EST ,
[2023-08-14 17:57] LABS: Anion Gap 4 (5-15); BUN 28 mg/dL (7-18); BUN/Creat Ratio 17.2 RATIO (10-20); Chloride 113 mmol/L (98-107); Creatinine, Serum 1.63 mg/dL (0.55-1.02); EST Glomerular Filtration Rate 33 mL/min (>60); Est Glom Filt Rate - Afr Amer 40 mL/min (>60); Estimated Creatinine Clearance 38.28 ml/min; Glucose 114 mg/dL (74-106); Potassium 3.6 mmol/L (3.5-5.1); Sodium Level 143 mmol/L (136-145); Troponin-I HS 13 pg/mL (3.0-54.0)
[2023-08-14 18:00] LABS: Prothrombin Time (Protime)PT. 13.6 SECONDS (11.7-14.9)
[2023-08-14 18:01] LABS: Partial Thromboplast Time 27.3 Seconds (24.1-36.2)
--- OUTSIDE RECORDS SUMMARY | 2023-08-14 18:03 | XMS RPT_ITS | CCD ---
Author Name Unknown Address [address] [place] [address] Organization [facility] Care Team Providers Care Technology Auditor Name Role Phone Troy Ovalle Unavailable Unavailable Makayla Agustin Unavailable Unavailable Troy Ovalle Unavailable Unavailable Troy Ovalle Unavailable Unavailable Makayla Agustin Unavailable Unavailable Troy Ovalle Unavailable Unavailable Makayla Agustin Unavailable Unavailable Troy Ovalle Unavailable Unavailable Rosita, Patricia Unavailable Makayla Agustin Unavailable Danielle Shah Unavailable Unavailable MessengerSenia Unavailable Unavailable Unavailable Unavailable Paxton Contreras Unavailable Gravius, Shaye Unavailable Unavailable Unavailable Unavailable Jannette Dooley Unavailable Unavailable Gravius, Shaye Unavailable Unavailable MessengerSenia Unavailable Unavailable Unavailable Unavailable Rosita DO, Patricia Unavailable Paxton Contreras Unavailable Makayla Agustin MD Unavailable Jannette Dooley LPN Unavailable Unavailable Gravius NURSING INFORMATION SYSTEMS COORDINATOR, Shaye Unavailable Unavailable Messenger Senia CHRISTIAN Unavailable Unavailable Unavailable Unavailable Ciesa JADA, Yola Barney Unavailable Elijah Chaves LPN Unavailable Unavailable Unavailable Unavailable Jp PARSONS, Darrian Kingston Unavailable Edwina Braden LPN Unavailable Unavailable Nani Gonzales Unavailable Rosita DO, Patricia Unavailable Makayla Agustin MD Unavailable Ciesa, Yola Unavailable Yola Hinds Unavailable Priscilla ALLEN, Karlosa Unavailable Unavailable Deedee Cruz CNP Unavailable [phone] Lud[address] HANNA , Dr. Donovan Dolan Unavailab le Patricia Becker DO Attending Unavailable Makayla Agustin MD Referring Unavailable Patricia Becker DO Consulting Unavailable [facility] Unavailable Medications Current Medications Medication [...] Drug Class(es) Dates Sig (Normalized) Sig (Original) [id number] 200 actuat albuterol 0.09 mg/actuat metered dose [...] Start: 04-23-2018 End: 04-24-2018 Patient encounter Troy Ovalle Facility:[facility] Start: 04-23-2018 Patient encounter Facil [id number] Start: 04-16-2018 End: 04-17-2018 Patient encounter Troy Ovalle Facility:[facility] Start: 04-16-2018 End: 04-17-2018 Patient encounter Troy Ovalle Facility:[facility] Start: 04-16-2018 Patient encounter Facil [id number] Start: 08-06-2017 End: 08-06-2017 Office outpatient visit 15 minutes Patricia Becker [facility] Start: 05-24-2017 End: 05-24-2017 Office outpatient visit 5 minutes Patricia Becker [facility] Start: 09-20-2016 End: 09-20-2016 Office outpatient visit 15 minutes Patricia Becker [facility] Start: 06-08-2016 End: 06-08-2016 Phone Encounter Patricia Solomon [facility] Start: 04-18-2016 End: 04-18-2016 Office [...] 11-13-2013 End: 11-13-2013 Annotation/Addendum Patricia Becker [facility] Start: 11-11-2013 End: 11-11-2013 Annotation/Addendum Patricia Becker [facility] Start: 11-02-2013 End: 11-02-2013 Office outpatient visit 15 minutes Patricia Rosita [email or web address] Internal Medicine Start: 10-05-2013 End: 10-05-2013 Office outpatient visit 15 minutes Patricia Becker [email or web address] Internal Medicine Start: 09-29-2013 End: 09-29-2013 Patient encounter procedure Patricia Becker [facility] [[email or web address] Internal Medicine Start: 09-01-2013 End: 09-01-2013 Patient encounter procedure Patricia Becker [email or web address] Internal Medicine Start: 07-10-2013 End: 07-10-2013 Annotation/Addendum aPtricia Becker [facility] [[email or web address] Review [facility] Medicine Start: 07-06-2013 End: 07-06-2013 Office outpatient visit 10 minutes Patricia Becker [facility] [[email or web address] Internal Medicine Start: 06-01-2013 End: 06-01-2013 Office outpatient visit 10 minutes Patricia Becker [email or web address] Internal Medicine Start: 05-18-2013 End: 05-18-2013 Annotation/Addendum Patricia Becker [facility] [[email or web address] Review Manager al Medicine Start: 05-18-2013 End: 05-18-2013 Office outpatient visit 25 minutes Patricia Becker [facility] [[email or web address] Internal Medicine Start: 06-23-2012 End: 06-23-2012 Patient encounter procedure Patricia Becker [email or web address] Internal Medicine Start: 05-26-2012 End: 05-26-2012 Patient encounter procedure Patricia Becker [email or web address] Procedures Date Procedure Procedure Detail Performing Clinician Start: 11-23-2021 End: 11-23-2021 Kidney and Bladder Comments: See Note; NOTES: [facility] Imaging Services [address] [place] [address] Kidney and Bladder MR#: [id number] Acct: [id number] Name: VERONICA COOK Srinivasan Rep #: [id number] : 1950 F 71 From: Ozzy Luz PCP: Dr. Patricia Becker DO Status: REG CLI Study: Kidney and Bladder Date of Exam: 11/23/21 Exam# [id number] Ordering Dr: Nani Gonzales DO STUDY: RENAL [...] Signed: Ozzy Barajas MD at 15:37 EDT Reading Location ID and State: [facility] / [place] , Service support , CC: Dr. Nani Gonzales DO; Dr. Patricia Becker DO Sewer Tapper: Signed Patricia Becker DO Work Phone: Start: 05-22-2021 End: 05-22-2021 Breast Limited Unilateral Comments: See Note; NOTES: [facility] Imaging Services [address] [place] [address] Breast Limited Unilateral MR#: [id number] Acct: [id number] Name: VERONICA COOK Rep #: [id number] : 1950 F 71 From: Bishnu neville MD PCP: Dr. Patricia Becker DO Status: REG CLI Study: Breast Limited Unilateral Date of Exam: Exam# [id number] Ordering Dr: Yola Hinds NP STUDY: ULTRASOUND BREAST - RIGHT REASON FOR [...] CC: RAISSA Hinds; Dr. Patricia Becker DO Sewer Tapper: Signed Yola Hinds [facility] Work Phone: Start: 05-18-2021 End: 05-19-2021 Dexa Bone Density Study Comments: See Note; NOTES: [facility] Imaging Services [address] [place] [address] Dexa Bone Density Study MR#: [id number] Acct: [id number] Name: VERONICA COOK Rep #: [id number] : 1950 F 71 From: Bishnu neville MD PCP: Dr. Patricia Becker, DO Status: REG CLI Study: Dexa Bone Density Study Date of Exam: 05/18/21 Exam# [id number] Ordering Dr: Yola Hinds NP HUMAN MACHINE INTERFACE ENGINEER-C STUDY: DUAL ENERGY X-RAY ABSORPTIOMETRY / DXA [...] CC: RAISSA Hinds; Dr. Patricia Becker DO Sewer Tapper: Signed Yola Hinds [facility] Work Phone: Start: 05-18-2021 End: 05-19-2021 SCRN MAMM (CAD)W/EARLINE BILAT Comments: See Note; NOTES: [facility] Imaging Services [address] [place] [address] SCRN MAMM (CAD)W/EARLINE BILAT MR#: [id number] Acct: [id number] Name: VERONICA COOK Rep #: [id number] : 1950 F 71 From: Bishnu neville MD PCP: Dr. Patricia Becker DO Status: REG CL Study: SCRN MAMM (CAD)W/EARLINE BILAT Date of Exam: 04/29 08/18 Exam# [id number] Ordering Dr: Yola Hinds NP HUMAN MACHINE INTERFACE ENGINEER-C MAMMOGRAPHY - BILATERAL SCREENING REASON FOR EXAM: [...] delay biopsy of a clinically suspicious abnormality. [id number] Electronically Signed: Bishnu Almanzar MD at 15:06 EDT , Service support , CC: RAISSA Hinds; Dr. Patricia Becker DO Sewer Tapper: Signed Yola Hinds [facility] Work Phone: Start: 01-12-2021 End: 2021 Abdomen/Pelvis without Cont Comments: See Note; NOTES: [facility] Imaging Services [address] [place] [address] Abdomen/Pelvis without Cont MR#: [id number] Acct: [id number] Name: VERONICA COOK Rep #: [id number] : 1950 F 70 From: Bishnu neville MD PCP: Dr. Patricia Becker, DO Status: REG CLI Study: Abdomen/Pelvis without Cont Date of Exam: 12/27 02/15 Exam# [id number] Ordering Dr: Rosaura Prather MD STUDY: CT [...] Rosaura Prather MD; Dr. Patricia Becker DO Sewer Tapper: Signed Patricia Becker DO Work Phone: Start: 05-05-2019 End: 05-05-2019 Operative Report Comments: See Note; NOTES: [facility] Medical Records Department [address] [place] [address] Operative Report 05/05/19 0856 MR#: [id number] Acct: [id number] Name: VERONICA COOK Rep #: [id number] : 1950 69 From: Rosaura Prather MD PCP: Patricia Becker DO Status: REG SD Y Location: [place] [address] Problem List (1) Migration of ureteral stent [...] 05-05-2019 Discharge Instruction Comments: See Note; NOTES: [facility] Medical Records Department [address] [place] [address] Instructions for Home/Discharge Instructions 05/05/19 0859 MR#: [id number] Acct: [id number] Name: VERONICA COOK Rep #: [id number] : 1950 69 From: Rosaura Prather MD PCP: Patricia Becker DO Status: REG [facility] Discharge Diet: No Restrictions Discharge Activity: Return [...] Abdomen Single View Comments: See Note; NOTES: [facility] Imaging Services [address] [place] [address] Abdomen Single View MR#: [id number] Acct: [id number] Name: VERONICA COOK Rep #: [id number] : 1950 F 69 From: Alberto Mcintosh MD PCP: Patricia Becker DO Status: REG CLI Study: Abdomen Single View Date of Exam: 04/29/19 Exam# [id number] Ordering Dr: Rosaura Prather MD STUDY: X-RAY [...] CC: Rosaura Prather MD; Patricia Becker DO Sewer Tapper: Signed Patricia Becker Start: 04-21-2019 End: 04-21-2019 Operative Report Comments: See Note; NOTES: [facility] Medical Records Department [address] [place] [address] Operative Report 04/21/19 1031 MR#: [id number] Acct: [id number] Name: VERONICA COOK Rep #: [id number] : 1950 69 From: Rosaura Prather MD PCP: Patricia Becker DO Status: [facility] Y Location: [place] [address] Problem List (1) Calculus of kidney with [...] injuries. Using the safety wire, a 7 Uruguayan 24 cm double-J stent was inserted without [...] prophylaxis not ordered:: Treatment Not Indicated 04/21/19 1607 <Electronically signed by Rosaura Prather MD> Date Rosaura Prather MD CC: Rosaura Prather MD; Patricia Becker DO Signed Patricia Becker Start: 04-21-2019 End: 04-21-2019 Discharge Instruction Comments: See Note; NOTES: [facility] Medical Records Department [address] [place] [address] Instructions for Home/Discharge Instructions 04/21/19 1030 MR#: [id number] Acct: [id number] Name: VERONICA COOK Rep #: [id number] : 1950 69 From: Rosaura Prather MD PCP: Patricia Becker DO Status: REG [facility] Discharge Diet: No Restrictions Discharge Activity: May [...] Abdomen Single View Comments: See Note; NOTES: [facility] Imaging Services [address] [place] [address] Abdomen Single View MR#: [id number] Acct: [id number] Name: VERONICA COOK Rep #: [id number] : 1950 F 69 From: Augusto Salazar MD PCP: Patricia Becker DO Status: REG CLI Study: Abdomen Single View Date of Exam: 04/13/19 Exam# [id number] Ordering Dr: Rosaura Prather MD STUDY: X-RAY [...] CC: Rosaura Prather MD; Patricia Becker DO Sewer Tapper: Signed Patricia Becker Start: 03-24-2019 End: 03-24-2019 Operative Report Comments: See Note; NOTES: [facility] Medical Records Department [address] [place] [address] Operative Report 03/24/19 0751 MR#: [id number] Acct: [id number] Name: VERONICA COOK Rep #: [id number] : 1950 69 From: Rosaura Prather MD PCP: Patricia Becker DO Status: REG [facility] Y Location: [place] [address] Problem List (1) Left renal stone Status: [...] Glidewire was inserted without difficulty. A 6 Uruguayan 24 cm double-J stent was passed and had good positioning in the renal pelvis as well as the urinary bladder. There were no complications during the procedure. She was taken to the recovery room in good condition. Type of Anesthesia:: General Description of Procedure: The stone was well fragmented at the conclusion of 3000 shocks. A 6 Uruguayan 24 cm double-J stent was used. Grafts/Implants Used: [id number] JJ stent - Complications none - Admit VTE Documentation VTE Present on Admission: Yes VTE Mechan Device Prophylaxis: SCD's VTE Pharm Prophylaxis ordered?: No Reason prophylaxis not ordered:: Treatment Not Indicated 03/24/19 1012 <Electronically signed by Rosaura Prather MD> Date Rosaura Prather MD CC: Rosaura Prather MD; Patricia Becker DO Signed Patricia Becker Start: 03-24-2019 End: 03-24-2019 Discharge Instruction Comments: See Note; NOTES: [facility] Medical Records Department [address] [place] [address] Instructions for Home/Discharge Instructions 03/24/19 0753 MR#: [id number] Acct: [id number] Name: VERONICA COOK Rep #: [id number] : 1950 69 From: Rosaura Prather MD PCP: Patricia Becker DO Status: REG [facility] Discharge Diet: No Restrictions Discharge Activity: May [...] Abdomen Single View Comments: See Note; NOTES: [facility] Imaging Services [address] [place] [address] Abdomen Single View MR#: [id number] Acct: [id number] Name: VERONICA COOK Rep #: [id number] : 1950 F 69 From: Trell Ramirez DO PCP: Patricia Becker DO Status: REG CLI Study: Abdomen Single View Date of Exam: 03/11/19 Exam# [id number] Ordering Dr: Rosaura Prather MD STUDY: X-RAY [...] Trell Ramirez DO at 18:04 EDT Tel [phone], Service support , CC: Rosaura Prather MD; Patricia Becker DO Sewer Tapper: Signed Patricia Becker Start: 11-04-2018 End: 11-04-2018 TXT - Blood Flow Screening Comments: See Note; NOTES: [facility] Cardiovascular Services [address] [place] [address] 11/04/18 0950 MR#: [id number] Acct: [id number] Name: VERONICA COOK Rep #: [id number] : 1950 68 From: Paxton Zurita MD Attending Dr: Patricia Becker DO Status: REG REF Ordering Dr: Date: 11/04/18 Location: [facility] Sex: F C Admitted: Reason For [...] Dictated: 11/04/18 0950 Date Transcribed: 11/04/18 1602 Sewer Tapper: Signed Patricia Becker Start: 09-30-2018 End: 09-30-2018 Emergency Department Summary Comments: See Note; NOTES: [facility] Medical Records Department [address] [place] [address] Emergency Department Summary 09/30/181957 MR#: [id number] Acct: [id number] Name: VERONICA COOK Rep #: [id number] : 1950 68 From: Shannon Perdue MD [...] no illnesses no history of stroke seizure CO or PE hypertension is well controlled Physical [...] Intractable vertigo This note was generated with PASSNFLY dictation software. It may contain incorrect words, [...] your Primary Care Provider. Call [facility] ([phone]) or report to the closest Emergency Room. Call 911 if necessary. 09/30/18 3013 <Electronically signed by Shannon Perdue MD> Date Shannon Perdue MD Cosigner Signature (If Indicated): Date CC: Patricia Lewis Start: 09-30-2018 End: 09-30-2018 Brain/Head without Contrast Comments: See Note; NOTES: [facility] Imaging Services [address] [place] [address] Brain/Head without Contrast MR#: [id number] Acct: [id number] Name: VERONICA COOK Rep #: [id number] : 1950 F 68 From: Conor Grijalva MD PCP: Patricia Becker DO Status: REG Study: Brain/Head without Contrast Date of Exam: 09/30/18 Exam# [id number] Ordering Dr: Shannon Perdue MD STUDY: CT [...] CC: MD Grisel Perdue; Patricia Becker DO Sewer Tapper: Signed Patricia Becker Start: 04-17-2016 End: 04-17-2016 Abdomen Single View Comments: See Note; NOTES: [facility] Imaging Services [address] [place] [address] [place] 4d Abdomen Single View MR#: [id number] Acct: [id number] Name: VERONICA COOK Rep #: [id number] : 1950 F 66 From: Trell Ramirez DO PCP: Makayla Agustin MD Status: REG CLI Study: Abdomen Single View Date of Exam: 04/17/16 Exam# [id number] Ordering Dr: Julio Suarez MD STUDY: X-RAY [...] Trell Ramirez DO at 16:50 EDT Tel [phone], Service support [phone], CC: Makayla Agustin MD; Julio Suarez MD Sewer Tapper: Signed Patricia Rosita Start: 04-15-2015 End: 04-15-2015 Abdomen/Pelvis without Cont Comments: See Note; NOTES: [facility] Imaging Services [address] [place] [address] CAT Scan Report MR#: [id number] Acct: [id number] Name: VERONICA COOK Rep #: [id number] : 1950 F 65 From: Bishnu Almanzar MD PCP: Makayla Agustin MD Status: REG CLI Study: Abdomen/Pelvis without Cont Date of Exam: 04/15/15 Exam# [id number] Ordering Dr: Julio Suarez MD STUDY: CT [...] Bishnu Almanzar MD at 15:39 EDT Tel [phone], Service support [phone], CC: Makayla Agustin MD; Julio Suarez MD Sewer Tapper: Signed Patricia Becker Start: 04-14-2015 End: 04-14-2015 [...] 02-25-2023 Cyanocobalamin vitamin b-12 VITAMIN B-12 (CYANOCOBALAMIN) (74952) [facility]; [facility] Work Phone: Start: 02-25-2023 Assay of thyroid stimulating hormone tsh TSH (THYROID STIMULATING HORMONE) (32936) [facility]; [facility] Work Phone: Start: 02-25-2023 25 hydroxy includes fractions if performed CALCIFEDIOL (12462) [facility]; [facility] Work Phone: Start: 02-25-2023 Urine albumin quantitative MICROALBUMIN: CREATININE RATIO (19287) AND (23297) [facility]; [facility] Work Phone: Start: 02-25-2023 Comprehensive metabolic panel METABOLIC PANEL, COMPREHENSIVE (96653) [facility]; [facility] Work Phone: Start: 02-25-2023 Lipid panel LIPID PANEL (59668) [facility]; [facility] Work Phone: Start: 02-25-2023 Blood count complete auto&auto difrntl wbc CBC with auto diff (95838) [facility]; [facility] Work Phone: Start: 02-25-2023 Gluc bld gluc mntr dev cleared fda spec home use Blood Glucose , Office (16549) [facility]; [facility] Work Phone: Start: 02-25-2023 Hemoglobin glycosylated a1c HgA1C , Office (09418) [facility]; [facility] Work [...] 01-24-2022 Cyanocobalamin vitamin b-12 VITAMIN B-12 (CYANOCOBALAMIN) (84671) [facility]; [facility] Work Phone: Start: 01-24-2022 25 hydroxy includes fractions if performed CALCIFIDIOL (62133) VIT D 25 [facility]; [facility] Work Phone: Start: 01-24-2022 Assay of thyroid stimulating hormone tsh TSH (42293) [facility]; [facility] Work Phone: Start: 01-24-2022 Urnls dip stick/tablet reagent auto microscopy URINALYSIS, W/ MICRO (68919) [facility]; [facility] Work Phone: Start: 01-24-2022 Urine albumin quantitative MICROALBUMIN: CREATININE RATIO (49092) AND (95796) [facility]; [facility] Work Phone: Start: 01-24-2022 Comprehensive metabolic panel METABOLIC PANEL, COMPREHENSIVE (93308) [facility]; [facility] Work Phone: Start: 01-24-2022 Lipid panel LIPID PANEL (91447) [facility]; [facility] Work Phone: Start: 01-24-2022 Blood count complete auto&auto difrntl wbc CBC W/AUTO DIFF WBC (30040) [facility]; [facility] Work Phone: Start: 10-24-2021 Procedure Education Eprescribed prescriptions (G8553) [facility]; [facility] Work Phone: Start: 10-24-2021 Provider Instructions for Treatment Follow up in 3 months with [facility]; [facility] Work Phone: Start: 10-24-2021 Blood occult fecal hgb deter ia qual feces 1-3 FECAL OCCULT- Tubes sent home (84653) [facility]; [facility] Work Phone: Start: 06-28-2021 Comprehensive metabolic panel Metabolic Panel, Comprehensive (42802) [facility]; [facility] Work [...] feces 1-3 FECAL OCCULT- Tubes sent home (72107) [facility]; [facility] Work Phone: Start: 04-19-2021 Cyanocobalamin vitamin b-12 VITAMIN B12 AND FOLATES (42829) [facility]; [facility] Work Phone: Start: 04-19-2021 Urine albumin quantitative MICROALBUMIN: CREATININE RATIO (39683) AND (81434) [facility]; [facility] Work Phone: Start: 04-19-2021 Comprehensive metabolic panel Metabolic Panel, Comprehensive (09919) [facility]; [facility] Work Phone: Start: 01-17-2021 Procedure Education Eprescribed prescriptions (G8553) [facility]; [facility] Work Phone: Start: 01-17-2021 Provider Instructions for Treatment [facility]; [facility] Work Phone: Start: 01-04-2021 Renal function panel RENAL FUNCTION PANEL (01520) [facility]; [facility] Work Phone: Payers Date Payer Category Payer Medicare [id number] 2021 Unknown [id number] 2018 Medicare 2017 Unknown [id number] 2014 Medicare [id number] 2014 Unknown [id number] 1950 Unknown [id number] Medicare [id number] Unknown Social History Date Type Detail Facility [...] Informa tion Online using Patient Portal and My [employer] Apps Indication:HTN (hypertension), benign Start:09-Dec-2020 Instruction Type:Patient [...] tion Online using Patient Portal and 3rd Libertarian Apps Indication:HTN (hypertension), benign Start:09-Dec-2020 Instruction Type:Patient [...] tion Online using Patient Portal and 3rd [employer] Apps Indication:JESUS (obstructive sleep apnea) Start:16-Dec-2020 Instruction Type:Patient Education Patient Instructions Indication:Non-smoker Start:09-Dec-2020 Instruction Type:Provider Instructions for Treatment How to Access Health Informa tion Online using Patient Portal and 3rd Libertarian Apps Indication:HTN (hypertension), benign Start:09-Dec-2020 Instruction Type:Patient [...] tion Online using Patient Portal and 3rd Libert[employer] Apps Indication:JESUS (obstructive sleep apnea) Start:16-Dec-2020 Instruction Type:Patient Education Patient Instructions Indication:Non-smoker Start:09-Dec-2020 Instruction Type:Provider Instructions for Treatment How to Access Health Informa tion Online using Patient Portal and [employer] Apps Indication:HTN (hypertension), benign Start:09-Dec-2020 Instruction Type:Patient [...] Informa tion Online using Patient Portal and i-[employer] Apps Indication:JESUS (obstructive sleep apnea) Start:16-Dec-2020 Instruction Type:Patient Education Patient Instructions Indication:Non-smoker Start:09-Dec-2020 Instruction Type:Provider Instructions for Treatment How to Access Health Informa tion Online using Patient Portal and i-nex[employer] Apps Indication:HTN (hypertension), benign Start:09-Dec-2020 Instruction Type:Patient [...] Informa tion Online using Patient Portal and My [employer] Apps Indication:JESUS (obstructive sleep apnea) Start:16-Dec-2020 Instruction Type:Patient Education Patient Instructions Indication:Non-smoker Start:09-Dec-2020 Instruction Type:Provider Instructions for Treatment How to Access Health Informa tion Online using Patient Portal and 3rd Libertarian Apps Indication:HTN (hypertension), benign Start:09-Dec-2020 Instruction Type:Patient [...] tion Online using Patient Portal and 3rd Libertarian Apps Indication:Non-smoker Start:17-Jan-2021 Instruction Type:Patient Education Patient Instructions Indication:CKD stage G3b/A1, GFR 30-44 and albumin creatinine ratio <30 mg/g Start:16-Dec-2020 Instruction Type:Provider Instructions for Treatment How to Access Health Informa tion Online using Patient Portal and [employer]rd [employer] Apps Indication:JESUS (obstructive sleep apnea) Start:16-Dec-2020 Instruction Type:Patient Education Patient Instructions Indication:Non-smoker Start:09-Dec-2020 Instruction Type:Provider Instructions for Treatment How to Access Health Informa tion Online using Patient Portal and [employer]rd [employer] Apps Indication:HTN (hypertension), benign Start:09-Dec-2020 Instruction Type:Patient [...] Informa tion Online using Patient Portal and [employer] Apps Indication:Non-smoker Start:17-Jan-2021 Instruction Type:Patient Education Patient Instructions Indication:CKD stage G3b/A1, GFR 30-44 and albumin creatinine ratio <30 mg/g Start:16-Dec-2020 Instruction Type:Provider Instructions for Treatment How to Access Health Informa tion Online using Patient Portal and [employer] Apps Indication:JESUS (obstructive sleep apnea) Start:16-Dec-2020 Instruction Type:Patient Education Patient Instructions Indication:Non-smoker Start:09-Dec-2020 Instruction Type:Provider Instructions for Treatment How to Access Health Informa tion Online using Patient Portal and [employer] Apps Indication:HTN (hypertension), benign Start:09-Dec-2020 Instruction Type:Patient [...] tion Online using Patient Portal and [employer]rd [employer] Apps Indication:BMI 39.0-39.9,adult Start:30-May-2021 Instruction Type:Patient Education Patient Instructions Indication:Encounter for screening for malignant neoplasm of colon (Renamed from Special screening for malignant neoplasms, colon) Start:25-Apr-2021 Instruction Type:Provider Instructions for Treatment How to Access Health Informa tion Online using Patient Portal and [employer]rd [employer] Apps Indication:Non-smoker Start:25-Apr-2021 Instruction Type:Patient Education Patient Instructions Indication:Non-smoker Start:17-Jan-2021 Instruction Type:Provider Instructions for Treatment How to Access Health Informa tion Online using Patient Portal and [employer]rd [employer] Apps Indication:Non-smoker Start:17-Jan-2021 Instruction Type:Patient Education Patient Instructions Indication:CKD stage G3b/A1, GFR 30-44 and albumin creatinine ratio <30 mg/g Start:16-Dec-2020 Instruction Type:Provider Instructions for Treatment How to Access Health Informa tion Online using Patient Portal and [employer]rd [employer] Apps Indication:JESUS (obstructive sleep apnea) Start:16-Dec-2020 Instruction Type:Patient Education Patient Instructions Indication:Non-smoker Start:09-Dec-2020 Instruction Type:Provider Instructions for Treatment How to Access Health Informa tion Online using Patient Portal and [employer]rd [employer] Apps Indication:HTN (hypertension), benign Start:09-Dec-2020 Instruction Type:Patient [...] tion Online using Patient Portal and [employer]rd [employer] Apps Indication:BMI 39.0-39.9,adult Start:30-May-2021 Instruction Type:Patient Education Patient Instructions Indication:Encounter for screening for malignant neoplasm of colon (Renamed from Special screening for malignant neoplasms, colon) Start:25-Apr-2021 Instruction Type:Provider Instructions for Treatment How to Access Health Informa tion Online using Patient Portal and My [employer] Apps Indication:Non-smoker Start:25-Apr-2021 Instruction Type:Patient Education Patient Instructions Indication:Non-smoker Start:17-Jan-2021 Instruction Type:Provider Instructions for Treatment How to Access Health Informa tion Online using Patient Portal and My [employer] Apps Indication:Non-smoker Start:17-Jan-2021 Instruction Type:Patient Education Patient Instructions Indication:CKD stage G3b/A1, GFR 30-44 and albumin creatinine ratio <30 mg/g Start:16-Dec-2020 Instruction Type:Provider Instructions for Treatment How to Access Health Informa tion Online using Patient Portal and [employer]rd [employer] Apps Indication:JESUS (obstructive sleep apnea) Start:16-Dec-2020 Instruction Type:Patient Education Patient Instructions Indication:Non-smoker Start:09-Dec-2020 Instruction Type:Provider Instructions for Treatment How to Access Health Informa tion Online using Patient Portal and [employer]rd [employer] Apps Indication:HTN (hypertension), benign Start:09-Dec-2020 Instruction Type:Patient [...] tion Online using Patient Portal and [employer]rd [employer] Apps Indication:BMI 39.0-39.9,adult Start:24-Oct-2021 Instruction Type:Patient Education Patient Instructions Indication:BMI 39.0-39.9,adult Start:30-May-2021 Instruction Type:Provider Instructions for Treatment How to Access Health Informa tion Online using Patient Portal and [employer]rd [employer] Apps Indication:BMI 39.0-39.9,adult Start:30-May-2021 Instruction Type:Patient Education Patient Instructions Indication:Encounter for screening for malignant neoplasm of colon (Renamed from Special screening for malignant neoplasms, colon) Start:25-Apr-2021 Instruction Type:Provider Instructions for Treatment How to Access Health Informa tion Online using Patient Portal and [employer] Apps Indication:Non-smoker Start:25-Apr-2021 Instruction Type:Patient Education Patient Instructions Indication:Non-smoker Start:17-Jan-2021 Instruction Type:Provider Instructions for Treatment How to Access Health Informa tion Online using Patient Portal and [employer] Apps Indication:Non-smoker Start:17-Jan-2021 Instruction Type:Patient Education Patient Instructions Indication:CKD stage G3b/A1, GFR 30-44 and albumin creatinine ratio <30 mg/g Start:16-Dec-2020 Instruction Type:Provider Instructions for Treatment How to Access Health Informa tion Online using Patient Portal and [employer]rd [employer] Apps Indication:JESUS (obstructive sleep apnea) Start:16-Dec-2020 Instruction Type:Patient Education Patient Instructions Indication:Non-smoker Start:09-Dec-2020 Instruction Type:Provider Instructions for Treatment How to Access Health Informa tion Online using Patient Portal and [employer]rd [employer] Apps Indication:HTN (hypertension), benign Start:09-Dec-2020 Instruction Type:Patient [...] tion Online using Patient Portal and [employer] Apps Indication:Impaired fasting glucose Start:24-Jan-2022 Instruction Type:Patient Education Patient Instructions Indication:BMI 39.0-39.9,adult Start:24-Oct-2021 Instruction Type:Provider Instructions for Treatment How to Access Health Informa tion Online using Patient Portal and [employer]rd [employer] Apps Indication:BMI 39.0-39.9,adult Start:24-Oct-2021 Instruction Type:Patient Education Patient Instructions Indication:BMI 39.0-39.9,adult Start:30-May-2021 Instruction Type:Provider Instructions for Treatment How to Access Health Informa tion Online using Patient Portal and [employer] Apps Indication:BMI 39.0-39.9,adult Start:30-May-2021 Instruction Type:Patient Education Patient Instructions Indication:Encounter for screening for malignant neoplasm of colon (Renamed from Special screening for malignant neoplasms, colon) Start:25-Apr-2021 Instruction Type:Provider Instructions for Treatment How to Access Health Informa tion Online using Patient Portal and My [employer] Apps Indication:Non-smoker Start:25-Apr-2021 Instruction Type:Patient Education Patient Instructions Indication:Non-smoker Start:17-Jan-2021 Instruction Type:Provider Instructions for Treatment How to Access Health Informa tion Online using Patient Portal and [employer] Apps Indication:Non-smoker Start:17-Jan-2021 Instruction Type:Patient Education Patient Instructions Indication:CKD stage G3b/A1, GFR 30-44 and albumin creatinine ratio <30 mg/g Start:16-Dec-2020 Instruction Type:Provider Instructions for Treatment How to Access Health Informa tion Online using Patient Portal and [employer]rd [employer] Apps Indication:JESUS (obstructive sleep apnea) Start:16-Dec-2020 Instruction Type:Patient Education Patient Instructions Indication:Non-smoker Start:09-Dec-2020 Instruction Type:Provider Instructions for Treatment How to Access Health Informa tion Online using Patient Portal and [employer]rd [employer] Apps Indication:HTN (hypertension), benign Start:09-Dec-2020 Instruction Type:Patient [...] tion Online using Patient Portal and [employer]rd [employer] Apps Indication:Impaired fasting glucose Start:24-Jan-2022 Instruction Type:Patient Education Patient Instructions Indication:BMI 39.0-39.9,adult Start:24-Oct-2021 Instruction Type:Provider Instructions for Treatment How to Access Health Informa tion Online using Patient Portal and [employer]rd [employer] Apps Indication:BMI 39.0-39.9,adult Start:24-Oct-2021 Instruction Type:Patient Education Patient Instructions Indication:BMI 39.0-39.9,adult Start:30-May-2021 Instruction Type:Provider Instructions for Treatment How to Access Health Informa tion Online using Patient Portal and [employer]rd [employer] Apps Indication:BMI 39.0-39.9,adult Start:30-May-2021 Instruction Type:Patient Education Patient Instructions Indication:Encounter for screening for malignant neoplasm of colon (Renamed from Special screening for malignant neoplasms, colon) Start:25-Apr-2021 Instruction Type:Provider Instructions for Treatment How to Access Health Informa tion Online using Patient Portal and [employer]rd [employer] Apps Indication:Non-smoker Start:25-Apr-2021 Instruction Type:Patient Education Patient Instructions Indication:Non-smoker Start:17-Jan-2021 Instruction Type:Provider Instructions for Treatment How to Access Health Informa tion Online using Patient Portal and [employer] Apps Indication:Non-smoker Start:17-Jan-2021 Instruction Type:Patient Education Patient Instructions Indication:CKD stage G3b/A1, GFR 30-44 and albumin creatinine ratio <30 mg/g Start:16-Dec-2020 Instruction Type:Provider Instructions for Treatment How to Access Health Informa tion Online using Patient Portal and [employer]rd [employer] Apps Indication:JESUS (obstructive sleep apnea) Start:16-Dec-2020 Instruction Type:Patient Education Patient Instructions Indication:Non-smoker Start:09-Dec-2020 Instruction Type:Provider Instructions for Treatment How to Access Health Informa tion Online using Patient Portal and [employer]rd [employer] Apps Indication:HTN (hypertension), benign Start:09-Dec-2020 Instruction Type:Patient [...] Internal Medicine; [facility] Work Phone: [phone]* Name Dates Details Patient Instructions Indication:Non-smoker Start:05-Feb-2022 Instruction Type:Provider Instructions for Treatment How to Access Health Informa tion Online using Patient Portal and [employer]rd [employer] Apps Indication:Non-smoker Start:05-Feb-2022 Instruction Type:Patient Education Patient Instructions Indication:Impaired fasting glucose Start:24-Jan-2022 Instruction Type:Provider Instructions for Treatment How to Access Health Informa tion Online using Patient Portal and [employer] Apps Indication:Impaired fasting glucose Start:24-Jan-2022 Instruction Type:Patient Education Patient Instructions Indication:BMI 39.0-39.9,adult Start:24-Oct-2021 Instruction Type:Provider Instructions for Treatment How to Access Health Informa tion Online using Patient Portal and [employer]rd [employer] Apps Indication:BMI 39.0-39.9,adult Start:24-Oct-2021 Instruction Type:Patient Education Patient Instructions Indication:BMI 39.0-39.9,adult Start:30-May-2021 Instruction Type:Provider Instructions for Treatment How to Access Health Informa tion Online using Patient Portal and [employer]rd [employer] Apps Indication:BMI 39.0-39.9,adult Start:30-May-2021 Instruction Type:Patient Education Patient Instructions Indication:Encounter for screening for malignant neoplasm of colon (Renamed from Special screening for malignant neoplasms, colon) Start:25-Apr-2021 Instruction Type:Provider Instructions for Treatment How to Access Health Informa tion Online using Patient Portal and [employer] Apps Indication:Non-smoker Start:25-Apr-2021 Instruction Type:Patient Education Patient Instructions Indication:Non-smoker Start:17-Jan-2021 Instruction Type:Provider Instructions for Treatment How to Access Health Informa tion Online using Patient Portal and [employer] Apps Indication:Non-smoker Start:17-Jan-2021 Instruction Type:Patient Education Patient Instructions Indication:CKD stage G3b/A1, GFR 30-44 and albumin creatinine ratio <30 mg/g Start:16-Dec-2020 Instruction Type:Provider Instructions for Treatment How to Access Health Informa tion Online using Patient Portal and [employer]rd [employer] Apps Indication:JESUS (obstructive sleep apnea) Start:16-Dec-2020 Instruction Type:Patient Education Patient Instructions Indication:Non-smoker Start:09-Dec-2020 Instruction Type:Provider Instructions for Treatment How to Access Health Informa tion Online using Patient Portal and [employer] Apps Indication:HTN (hypertension), benign Start:09-Dec-2020 Instruction Type:Patient [...] tion Online using Patient Portal and [employer] Apps Indication:Non-smoker Start:22-Feb-2022 Instruction Type:Patient Education Patient Instructions Indication:Non-smoker Start:05-Feb-2022 Instruction Type:Provider Instructions for Treatment How to Access Health Informa tion Online using Patient Portal and [employer] Apps Indication:Non-smoker Start:05-Feb-2022 Instruction Type:Patient Education Patient Instructions Indication:Impaired fasting glucose Start:24-Jan-2022 Instruction Type:Provider Instructions for Treatment How to Access Health Informa tion Online using Patient Portal and [employer] Apps Indication:Impaired fasting glucose Start:24-Jan-2022 Instruction Type:Patient Education Patient Instructions Indication:BMI 39.0-39.9,adult Start:24-Oct-2021 Instruction Type:Provider Instructions for Treatment How to Access Health Informa tion Online using Patient Portal and [employer] Apps Indication:BMI 39.0-39.9,adult Start:24-Oct-2021 Instruction Type:Patient Education Patient Instructions Indication:BMI 39.0-39.9,adult Start:30-May-2021 Instruction Type:Provider Instructions for Treatment How to Access Health Informa tion Online using Patient Portal and [employer]rd [employer] Apps Indication:BMI 39.0-39.9,adult Start:30-May-2021 Instruction Type:Patient Education Patient Instructions Indication:Encounter for screening for malignant neoplasm of colon (Renamed from Special screening for malignant neoplasms, colon) Start:25-Apr-2021 Instruction Type:Provider Instructions for Treatment How to Access Health Informa tion Online using Patient Portal and [employer] Apps Indication:Non-smoker Start:25-Apr-2021 Instruction Type:Patient Education Patient Instructions Indication:Non-smoker Start:17-Jan-2021 Instruction Type:Provider Instructions for Treatment How to Access Health Informa tion Online using Patient Portal and [employer] Apps Indication:Non-smoker Start:17-Jan-2021 Instruction Type:Patient Education Patient Instructions Indication:CKD stage G3b/A1, GFR 30-44 and albumin creatinine ratio <30 mg/g Start:16-Dec-2020 Instruction Type:Provider Instructions for Treatment How to Access Health Informa tion Online using Patient Portal and [employer]rd [employer] Apps Indication:JESUS (obstructive sleep apnea) Start:16-Dec-2020 Instruction Type:Patient Education Patient Instructions Indication:Non-smoker Start:09-Dec-2020 Instruction Type:Provider Instructions for Treatment How to Access Health Informa tion Online using Patient Portal and [employer] Apps Indication:HTN (hypertension), benign Start:09-Dec-2020 Instruction Type:Patient [...] tion Online using Patient Portal and [employer]rd [employer] Apps Indication:Morbid obesity Start:08-Mar-2022 Instruction Type:Patient Education Patient Instructions Indication:Non-smoker Start:22-Feb-2022 Instruction Type:Provider Instructions for Treatment How to Access Health Informa tion Online using Patient Portal and [employer] Apps Indication:Non-smoker Start:22-Feb-2022 Instruction Type:Patient Education Patient Instructions Indication:Non-smoker Start:05-Feb-2022 Instruction Type:Provider Instructions for Treatment How to Access Health Informa tion Online using Patient Portal and [employer] Apps Indication:Non-smoker Start:05-Feb-2022 Instruction Type:Patient Education Patient Instructions Indication:Impaired fasting glucose Start:24-Jan-2022 Instruction Type:Provider Instructions for Treatment How to Access Health Informa tion Online using Patient Portal and [employer] Apps Indication:Impaired fasting glucose Start:24-Jan-2022 Instruction Type:Patient Education Patient Instructions Indication:BMI 39.0-39.9,adult Start:24-Oct-2021 Instruction Type:Provider Instructions for Treatment How to Access Health Informa tion Online using Patient Portal and [employer] Apps Indication:BMI 39.0-39.9,adult Start:24-Oct-2021 Instruction Type:Patient Education Patient Instructions Indication:BMI 39.0-39.9,adult Start:30-May-2021 Instruction Type:Provider Instructions for Treatment How to Access Health Informa tion Online using Patient Portal and [employer] Apps Indication:BMI 39.0-39.9,adult Start:30-May-2021 Instruction Type:Patient Education Patient Instructions Indication:Encounter for screening for malignant neoplasm of colon (Renamed from Special screening for malignant neoplasms, colon) Start:25-Apr-2021 Instruction Type:Provider Instructions for Treatment How to Access Health Informa tion Online using Patient Portal and [employer] Apps Indication:Non-smoker Start:25-Apr-2021 Instruction Type:Patient Education Patient Instructions Indication:Non-smoker Start:17-Jan-2021 Instruction Type:Provider Instructions for Treatment How to Access Health Informa tion Online using Patient Portal and [employer] Apps Indication:Non-smoker Start:17-Jan-2021 Instruction Type:Patient Education Patient Instructions Indication:CKD stage G3b/A1, GFR 30-44 and albumin creatinine ratio <30 mg/g Start:16-Dec-2020 Instruction Type:Provider Instructions for Treatment How to Access Health Informa tion Online using Patient Portal and [employer] Apps Indication:JESUS (obstructive sleep apnea) Start:16-Dec-2020 Instruction Type:Patient Education Patient Instructions Indication:Non-smoker Start:09-Dec-2020 Instruction Type:Provider Instructions for Treatment How to Access Health Informa tion Online using Patient Portal and [employer] Apps Indication:HTN (hypertension), benign Start:09-Dec-2020 Instruction Type:Patient [...] tion Online using Patient Portal and [employer] Apps Indication:Non-smoker Start:15-Mar-2022 Instruction Type:Patient Education Patient Instructions Indication:Morbid obesity Start:08-Mar-2022 Instruction Type:Provider Instructions for Treatment How to Access Health Informa tion Online using Patient Portal and [employer] Apps Indication:Morbid obesity Start:08-Mar-2022 Instruction Type:Patient Education Patient Instructions Indication:Non-smoker Start:22-Feb-2022 Instruction Type:Provider Instructions for Treatment How to Access Health Informa tion Online using Patient Portal and [employer] Apps Indication:Non-smoker Start:22-Feb-2022 Instruction Type:Patient Education Patient Instructions Indication:Non-smoker Start:05-Feb-2022 Instruction Type:Provider Instructions for Treatment How to Access Health Informa tion Online using Patient Portal and [employer] Apps Indication:Non-smoker Start:05-Feb-2022 Instruction Type:Patient Education Patient Instructions Indication:Impaired fasting glucose Start:24-Jan-2022 Instruction Type:Provider Instructions for Treatment How to Access Health Informa tion Online using Patient Portal and [employer] Apps Indication:Impaired fasting glucose Start:24-Jan-2022 Instruction Type:Patient Education Patient Instructions Indication:BMI 39.0-39.9,adult Start:24-Oct-2021 Instruction Type:Provider Instructions for Treatment How to Access Health Informa tion Online using Patient Portal and [employer] Apps Indication:BMI 39.0-39.9,adult Start:24-Oct-2021 Instruction Type:Patient Education Patient Instructions Indication:BMI 39.0-39.9,adult Start:30-May-2021 Instruction Type:Provider Instructions for Treatment How to Access Health Informa tion Online using Patient Portal and [employer] Apps Indication:BMI 39.0-39.9,adult Start:30-May-2021 Instruction Type:Patient Education Patient Instructions Indication:Encounter for screening for malignant neoplasm of colon (Renamed from Special screening for malignant neoplasms, colon) Start:25-Apr-2021 Instruction Type:Provider Instructions for Treatment How to Access Health Informa tion Online using Patient Portal and [employer] Apps Indication:Non-smoker Start:25-Apr-2021 Instruction Type:Patient Education Patient Instructions Indication:Non-smoker Start:17-Jan-2021 Instruction Type:Provider Instructions for Treatment How to Access Health Informa tion Online using Patient Portal and [employer] Apps Indication:Non-smoker Start:17-Jan-2021 Instruction Type:Patient Education Patient Instructions Indication:CKD stage G3b/A1, GFR 30-44 and albumin creatinine ratio <30 mg/g Start:16-Dec-2020 Instruction Type:Provider Instructions for Treatment How to Access Health Informa tion Online using Patient Portal and [employer] Apps Indication:JESUS (obstructive sleep apnea) Start:16-Dec-2020 Instruction Type:Patient Education Patient Instructions Indication:Non-smoker Start:09-Dec-2020 Instruction Type:Provider Instructions for Treatment How to Access Health Informa tion Online using Patient Portal and [employer] Apps Indication:HTN (hypertension), benign Start:09-Dec-2020 Instruction Type:Patient [...] tion Online using Patient Portal and [employer] Apps Indication:Non-smoker Start:15-Mar-2022 Instruction Type:Patient Education Patient Instructions Indication:Morbid obesity Start:08-Mar-2022 Instruction Type:Provider Instructions for Treatment How to Access Health Informa tion Online using Patient Portal and [employer] Apps Indication:Morbid obesity Start:08-Mar-2022 Instruction Type:Patient Education Patient Instructions Indication:Non-smoker Start:22-Feb-2022 Instruction Type:Provider Instructions for Treatment How to Access Health Informa tion Online using Patient Portal and [employer] Apps Indication:Non-smoker Start:22-Feb-2022 Instruction Type:Patient Education Patient Instructions Indication:Non-smoker Start:05-Feb-2022 Instruction Type:Provider Instructions for Treatment How to Access Health Informa tion Online using Patient Portal and [employer] Apps Indication:Non-smoker Start:05-Feb-2022 Instruction Type:Patient Education Patient Instructions Indication:Impaired fasting glucose Start:24-Jan-2022 Instruction Type:Provider Instructions for Treatment How to Access Health Informa tion Online using Patient Portal and [employer] Apps Indication:Impaired fasting glucose Start:24-Jan-2022 Instruction Type:Patient Education Patient Instructions Indication:BMI 39.0-39.9,adult Start:24-Oct-2021 Instruction Type:Provider Instructions for Treatment How to Access Health Informa tion Online using Patient Portal and [employer] Apps Indication:BMI 39.0-39.9,adult Start:24-Oct-2021 Instruction Type:Patient Education Patient Instructions Indication:BMI 39.0-39.9,adult Start:30-May-2021 Instruction Type:Provider Instructions for Treatment How to Access Health Informa tion Online using Patient Portal and [employer] Apps Indication:BMI 39.0-39.9,adult Start:30-May-2021 Instruction Type:Patient Education Patient Instructions Indication:Encounter for screening for malignant neoplasm of colon (Renamed from Special screening for malignant neoplasms, colon) Start:25-Apr-2021 Instruction Type:Provider Instructions for Treatment How to Access Health Informa tion Online using Patient Portal and [employer] Apps Indication:Non-smoker Start:25-Apr-2021 Instruction Type:Patient Education Patient Instructions Indication:Non-smoker Start:17-Jan-2021 Instruction Type:Provider Instructions for Treatment How to Access Health Informa tion Online using Patient Portal and [employer] Apps Indication:Non-smoker Start:17-Jan-2021 Instruction Type:Patient Education Patient Instructions Indication:CKD stage G3b/A1, GFR 30-44 and albumin creatinine ratio <30 mg/g Start:16-Dec-2020 Instruction Type:Provider Instructions for Treatment How to Access Health Informa tion Online using Patient Portal and [employer] Indication:JESUS (obstructive sleep apnea) Start:16-Dec-2020 Instruction Type:Patient Education Patient Instructions Indication:Non-smoker Start:09-Dec-2020 Instruction Type:Provider Instructions for Treatment How to Access Health Informa tion Online using Patient Portal and [employer] Apps Indication:HTN (hypertension), benign Start:09-Dec-2020 Instruction Type:Patient [...] tion Online using Patient Portal and [employer] Apps Indication:BMI 40.0-44.9, adult Start:25-Oct-2022 Instruction Type:Patient Education Patient Instructions Indication:Non-smoker Start:15-Mar-2022 Instruction Type:Provider Instructions for Treatment How to Access Health Informa tion Online using Patient Portal and [employer] Apps Indication:Non-smoker Start:15-Mar-2022 Instruction Type:Patient Education Patient Instructions Indication:Morbid obesity Start:08-Mar-2022 Instruction Type:Provider Instructions for Treatment How to Access Health Informa tion Online using Patient Portal and [employer] Apps Indication:Morbid obesity Start:08-Mar-2022 Instruction Type:Patient Education Patient Instructions Indication:Non-smoker Start:22-Feb-2022 Instruction Type:Provider Instructions for Treatment How to Access Health Informa tion Online using Patient Portal and [employer] Apps Indication:Non-smoker Start:22-Feb-2022 Instruction Type:Patient Education Patient Instructions Indication:Non-smoker Start:05-Feb-2022 Instruction Type:Provider Instructions for Treatment How to Access Health Informa tion Online using Patient Portal and [employer] Apps Indication:Non-smoker Start:05-Feb-2022 Instruction Type:Patient Education Patient Instructions Indication:Impaired fasting glucose Start:24-Jan-2022 Instruction Type:Provider Instructions for Treatment How to Access Health Informa tion Online using Patient Portal and [employer]rd [employer] Apps Indication:Impaired fasting glucose Start:24-Jan-2022 Instruction Type:Patient Education Patient Instructions Indication:BMI 39.0-39.9,adult Start:24-Oct-2021 Instruction Type:Provider Instructions for Treatment How to Access Health Informa tion Online using Patient Portal and [employer]rd [employer] Apps Indication:BMI 39.0-39.9,adult Start:24-Oct-2021 Instruction Type:Patient Education Patient Instructions Indication:BMI 39.0-39.9,adult Start:30-May-2021 Instruction Type:Provider Instructions for Treatment How to Access Health Informa tion Online using Patient Portal and [employer]rd [employer] Apps Indication:BMI 39.0-39.9,adult Start:30-May-2021 Instruction Type:Patient Education Patient Instructions Indication:Encounter for screening for malignant neoplasm of colon (Renamed from Special screening for malignant neoplasms, colon) Start:25-Apr-2021 Instruction Type:Provider Instructions for Treatment How to Access Health Informa tion Online using Patient Portal and [employer]rd [employer] Apps Indication:Non-smoker Start:25-Apr-2021 Instruction Type:Patient Education Patient Instructions Indication:Non-smoker Start:17-Jan-2021 Instruction Type:Provider Instructions for Treatment How to Access Health Informa tion Online using Patient Portal and [employer] Apps Indication:Non-smoker Start:17-Jan-2021 Instruction Type:Patient Education Patient Instructions Indication:CKD stage G3b/A1, GFR 30-44 and albumin creatinine ratio <30 mg/g Start:16-Dec-2020 Instruction Type:Provider Instructions for Treatment How to Access Health Informa tion Online using Patient Portal and [employer]rd [employer] Apps Indication:JESUS (obstructive sleep apnea) Start:16-Dec-2020 Instruction Type:Patient Education Patient Instructions Indication:Non-smoker Start:09-Dec-2020 Instruction Type:Provider Instructions for Treatment How to Access Health Informa tion Online using Patient Portal and [employer]rd [employer] Apps Indication:HTN (hypertension), benign Start:09-Dec-2020 Instruction Type:Patient [...] tion Online using Patient Portal and [employer]rd [employer] Apps Indication:BMI 40.0-44.9, adult Start:25-Oct-2022 Instruction Type:Patient Education Patient Instructions Indication:Non-smoker Start:15-Mar-2022 Instruction Type:Provider Instructions for Treatment How to Access Health Informa tion Online using Patient Portal and [employer] Apps Indication:Non-smoker Start:15-Mar-2022 Instruction Type:Patient Education Patient Instructions Indication:Morbid obesity Start:08-Mar-2022 Instruction Type:Provider Instructions for Treatment How to Access Health Informa tion Online using Patient Portal and [employer]rd [employer] Apps Indication:Morbid obesity Start:08-Mar-2022 Instruction Type:Patient Education Patient Instructions Indication:Non-smoker Start:22-Feb-2022 Instruction Type:Provider Instructions for Treatment How to Access Health Informa tion Online using Patient Portal and [employer] Apps Indication:Non-smoker Start:22-Feb-2022 Instruction Type:Patient Education Patient Instructions Indication:Non-smoker Start:05-Feb-2022 Instruction Type:Provider Instructions for Treatment How to Access Health Informa tion Online using Patient Portal and [employer] Apps Indication:Non-smoker Start:05-Feb-2022 Instruction Type:Patient Education Patient Instructions Indication:Impaired fasting glucose Start:24-Jan-2022 Instruction Type:Provider Instructions for Treatment How to Access Health Informa tion Online using Patient Portal and [employer]rd [employer] Apps Indication:Impaired fasting glucose Start:24-Jan-2022 Instruction Type:Patient Education Patient Instructions Indication:BMI 39.0-39.9,adult Start:24-Oct-2021 Instruction Type:Provider Instructions for Treatment How to Access Health Informa tion Online using Patient Portal and [employer] Apps Indication:BMI 39.0-39.9,adult Start:24-Oct-2021 Instruction Type:Patient Education Patient Instructions Indication:BMI 39.0-39.9,adult Start:30-May-2021 Instruction Type:Provider Instructions for Treatment How to Access Health Informa tion Online using Patient Portal and [employer]rd [employer] Apps Indication:BMI 39.0-39.9,adult Start:30-May-2021 Instruction Type:Patient Education Patient Instructions Indication:Encounter for screening for malignant neoplasm of colon (Renamed from Special screening for malignant neoplasms, colon) Start:25-Apr-2021 Instruction Type:Provider Instructions for Treatment How to Access Health Informa tion Online using Patient Portal and [employer]rd [employer] Apps Indication:Non-smoker Start:25-Apr-2021 Instruction Type:Patient Education Patient Instructions Indication:Non-smoker Start:17-Jan-2021 Instruction Type:Provider Instructions for Treatment How to Access Health Informa tion Online using Patient Portal and [employer] Apps Indication:Non-smoker Start:17-Jan-2021 Instruction Type:Patient Education Patient Instructions Indication:CKD stage G3b/A1, GFR 30-44 and albumin creatinine ratio <30 mg/g Start:16-Dec-2020 Instruction Type:Provider Instructions for Treatment How to Access Health Informa tion Online using Patient Portal and [employer]rd [employer] Apps Indication:JESUS (obstructive sleep apnea) Start:16-Dec-2020 Instruction Type:Patient Education Patient Instructions Indication:Non-smoker Start:09-Dec-2020 Instruction Type:Provider Instructions for Treatment How to Access Health Informa tion Online using Patient Portal and [employer]rd [employer] Apps Indication:HTN (hypertension), benign Start:09-Dec-2020 Instruction Type:Patient [...] tion Online using Patient Portal and [employer]rd [employer] Apps Indication:BMI 40.0-44.9, adult Start:25-Oct-2022 Instruction Type:Patient Education Patient Instructions Indication:Non-smoker Start:15-Mar-2022 Instruction Type:Provider Instructions for Treatment How to Access Health Informa tion Online using Patient Portal and [employer] Apps Indication:Non-smoker Start:15-Mar-2022 Instruction Type:Patient Education Patient Instructions Indication:Morbid obesity Start:08-Mar-2022 Instruction Type:Provider Instructions for Treatment How to Access Health Informa tion Online using Patient Portal and [employer]rd [employer] Apps Indication:Morbid obesity Start:08-Mar-2022 Instruction Type:Patient Education Patient Instructions Indication:Non-smoker Start:22-Feb-2022 Instruction Type:Provider Instructions for Treatment How to Access Health Informa tion Online using Patient Portal and [employer]rd [employer] Apps Indication:Non-smoker Start:22-Feb-2022 Instruction Type:Patient Education Patient Instructions Indication:Non-smoker Start:05-Feb-2022 Instruction Type:Provider Instructions for Treatment How to Access Health Informa tion Online using Patient Portal and [employer]rd [employer] Apps Indication:Non-smoker Start:05-Feb-2022 Instruction Type:Patient Education Patient Instructions Indication:Impaired fasting glucose Start:24-Jan-2022 Instruction Type:Provider Instructions for Treatment How to Access Health Informa tion Online using Patient Portal and [employer]rd [employer] Apps Indication:Impaired fasting glucose Start:24-Jan-2022 Instruction Type:Patient Education Patient Instructions Indication:BMI 39.0-39.9,adult Start:24-Oct-2021 Instruction Type:Provider Instructions for Treatment How to Access Health Informa tion Online using Patient Portal and [employer]rd [employer] Apps Indication:BMI 39.0-39.9,adult Start:24-Oct-2021 Instruction Type:Patient Education Patient Instructions Indication:BMI 39.0-39.9,adult Start:30-May-2021 Instruction Type:Provider Instructions for Treatment How to Access Health Informa tion Online using Patient Portal and [employer]rd [employer] Apps Indication:BMI 39.0-39.9,adult Start:30-May-2021 Instruction Type:Patient Education Patient Instructions Indication:Encounter for screening for malignant neoplasm of colon (Renamed from Special screening for malignant neoplasms, colon) Start:25-Apr-2021 Instruction Type:Provider Instructions for Treatment How to Access Health Informa tion Online using Patient Portal and [employer]rd [employer] Apps Indication:Non-smoker Start:25-Apr-2021 Instruction Type:Patient Education Patient Instructions Indication:Non-smoker Start:17-Jan-2021 Instruction Type:Provider Instructions for Treatment How to Access Health Informa tion Online using Patient Portal and [employer]rd [employer] Apps Indication:Non-smoker Start:17-Jan-2021 Instruction Type:Patient Education Patient Instructions Indication:CKD stage G3b/A1, GFR 30-44 and albumin creatinine ratio <30 mg/g Start:16-Dec-2020 Instruction Type:Provider Instructions for Treatment How to Access Health Informa tion Online using Patient Portal and 3rd [employer] Apps Indication:JESUS (obstructive sleep apnea) Start:16-Dec-2020 Instruction Type:Patient Education Patient Instructions Indication:Non-smoker Start:09-Dec-2020 Instruction Type:Provider Instructions for Treatment How to Access Health Informa tion Online using Patient Portal and 3rd [employer] Apps Indication:HTN (hypertension), benign Start:09-Dec-2020 Instruction Type:Patient [...] Informa tion Online using Patient Portal and [employer] Apps Indication:Non-smoker Start:25-Feb-2023 Instruction Type:Patient Education Patient Instructions Indication:BMI 40.0-44.9, adult Start:25-Oct-2022 Instruction Type:Provider Instructions for Treatment How to Access Health Informa tion Online using Patient Portal and [employer]rd [employer] Apps Indication:BMI 40.0-44.9, adult Start:25-Oct-2022 Instruction Type:Patient Education Patient Instructions Indication:Non-smoker Start:15-Mar-2022 Instruction Type:Provider Instructions for Treatment How to Access Health Informa tion Online using Patient Portal and [employer]rd [employer] Apps Indication:Non-smoker Start:15-Mar-2022 Instruction Type:Patient Education Patient Instructions Indication:Morbid obesity Start:08-Mar-2022 Instruction Type:Provider Instructions for Treatment How to Access Health Informa tion Online using Patient Portal and 3rd [employer] Apps Indication:Morbid obesity Start:08-Mar-2022 Instruction Type:Patient Education Patient Instructions Indication:Non-smoker Start:22-Feb-2022 Instruction Type:Provider Instructions for Treatment How to Access Health Informa tion Online using Patient Portal and [employer]rd [employer] Apps Indication:Non-smoker Start:22-Feb-2022 Instruction Type:Patient Education Patient Instructions Indication:Non-smoker Start:05-Feb-2022 Instruction Type:Provider Instructions for Treatment How to Access Health Informa tion Online using Patient Portal and [employer]rd [employer] Apps Indication:Non-smoker Start:05-Feb-2022 Instruction Type:Patient Education Patient Instructions Indication:Impaired fasting glucose Start:24-Jan-2022 Instruction Type:Provider Instructions for Treatment How to Access Health Informa tion Online using Patient Portal and [employer]rd [employer] Apps Indication:Impaired fasting glucose Start:24-Jan-2022 Instruction Type:Patient Education Patient Instructions Indication:BMI 39.0-39.9,adult Start:24-Oct-2021 Instruction Type:Provider Instructions for Treatment How to Access Health Informa tion Online using Patient Portal and [employer]rd [employer] Apps Indication:BMI 39.0-39.9,adult Start:24-Oct-2021 Instruction Type:Patient Education Patient Instructions Indication:BMI 39.0-39.9,adult Start:30-May-2021 Instruction Type:Provider Instructions for Treatment How to Access Health Informa tion Online using Patient Portal and [employer]rd [employer] Apps Indication:BMI 39.0-39.9,adult Start:30-May-2021 Instruction Type:Patient Education Patient Instructions Indication:Encounter for screening for malignant neoplasm of colon (Renamed from Special screening for malignant neoplasms, colon) Start:25-Apr-2021 Instruction Type:Provider Instructions for Treatment How to Access Health Informa tion Online using Patient Portal and [employer]rd [employer] Apps Indication:Non-smoker Start:25-Apr-2021 Instruction Type:Patient Education Patient Instructions Indication:Non-smoker Start:17-Jan-2021 Instruction Type:Provider Instructions for Treatment How to Access Health Informa tion Online using Patient Portal and [employer] Apps Indication:Non-smoker Start:17-Jan-2021 Instruction Type:Patient Education Patient Instructions Indication:CKD stage G3b/A1, GFR 30-44 and albumin creatinine ratio <30 mg/g Start:16-Dec-2020 Instruction Type:Provider Instructions for Treatment How to Access Health Informa tion Online using Patient Portal and [employer]rd [employer] Apps Indication:JESUS (obstructive sleep apnea) Start:16-Dec-2020 Instruction Type:Patient Education Patient Instructions Indication:Non-smoker Start:09-Dec-2020 Instruction Type:Provider Instructions for Treatment How to Access Health Informa tion Online using Patient Portal and [employer] Apps Indication:HTN (hypertension), benign Start:09-Dec-2020 Instruction Type:Patient [...] tion Online using Patient Portal and [employer] Apps Indication:Non-smoker Start:25-Mar-2023 Instruction Type:Patient Education Patient Instructions Indication:Non-smoker Start:25-Feb-2023 Instruction Type:Provider Instructions for Treatment How to Access Health Informa tion Online using Patient Portal and [employer] Apps Indication:Non-smoker Start:25-Feb-2023 Instruction Type:Patient Education Patient Instructions Indication:BMI 40.0-44.9, adult Start:25-Oct-2022 Instruction Type:Provider Instructions for Treatment How to Access Health Informa tion Online using Patient Portal and [employer]rd [employer] Apps Indication:BMI 40.0-44.9, adult Start:25-Oct-2022 Instruction Type:Patient Education Patient Instructions Indication:Non-smoker Start:15-Mar-2022 Instruction Type:Provider Instructions for Treatment How to Access Health Informa tion Online using Patient Portal and [employer] Apps Indication:Non-smoker Start:15-Mar-2022 Instruction Type:Patient Education Patient Instructions Indication:Morbid obesity Start:08-Mar-2022 Instruction Type:Provider Instructions for Treatment How to Access Health Informa tion Online using Patient Portal and [employer]rd [employer] Apps Indication:Morbid obesity Start:08-Mar-2022 Instruction Type:Patient Education Patient Instructions Indication:Non-smoker Start:22-Feb-2022 Instruction Type:Provider Instructions for Treatment How to Access Health Informa tion Online using Patient Portal and [employer] Apps Indication:Non-smoker Start:22-Feb-2022 Instruction Type:Patient Education Patient Instructions Indication:Non-smoker Start:05-Feb-2022 Instruction Type:Provider Instructions for Treatment How to Access Health Informa tion Online using Patient Portal and [employer]rd [employer] Apps Indication:Non-smoker Start:05-Feb-2022 Instruction Type:Patient Education Patient Instructions Indication:Impaired fasting glucose Start:24-Jan-2022 Instruction Type:Provider Instructions for Treatment How to Access Health Informa tion Online using Patient Portal and [employer]rd [employer] Apps Indication:Impaired fasting glucose Start:24-Jan-2022 Instruction Type:Patient Education Patient Instructions Indication:BMI 39.0-39.9,adult Start:24-Oct-2021 Instruction Type:Provider Instructions for Treatment How to Access Health Informa tion Online using Patient Portal and [employer]rd [employer] Apps Indication:BMI 39.0-39.9,adult Start:24-Oct-2021 Instruction Type:Patient Education Patient Instructions Indication:BMI 39.0-39.9,adult Start:30-May-2021 Instruction Type:Provider Instructions for Treatment How to Access Health Informa tion Online using Patient Portal and 3rd [employer] Apps Indication:BMI 39.0-39.9,adult Start:30-May-2021 Instruction Type:Patient Education Patient Instructions Indication:Encounter for screening for malignant neoplasm of colon (Renamed from Special screening for malignant neoplasms, colon) Start:25-Apr-2021 Instruction Type:Provider Instructions for Treatment How to Access Health Informa tion Online using Patient Portal and [employer] Apps Indication:Non-smoker Start:25-Apr-2021 Instruction Type:Patient Education Patient Instructions Indication:Non-smoker Start:17-Jan-2021 Instruction Type:Provider Instructions for Treatment How to Access Health Informa tion Online using Patient Portal and [employer] Apps Indication:Non-smoker Start:17-Jan-2021 Instruction Type:Patient Education Patient Instructions Indication:CKD stage G3b/A1, GFR 30-44 and albumin creatinine ratio <30 mg/g Start:16-Dec-2020 Instruction Type:Provider Instructions for Treatment How to Access Health Informa tion Online using Patient Portal and [employer]rd [employer] Apps Indication:JESUS (obstructive sleep apnea) Start:16-Dec-2020 Instruction Type:Patient Education Patient Instructions Indication:Non-smoker Start:09-Dec-2020 Instruction Type:Provider Instructions for Treatment How to Access Health Informa tion Online using Patient Portal and [employer]rd [employer] Apps Indication:HTN (hypertension), benign Start:09-Dec-2020 Instruction Type:Patient [...] Informa tion Online using Patient Portal and [employer] Apps Indication:Non-smoker Start:12-Apr-2023 Instruction Type:Patient Education Patient Instructions Indication:Non-smoker Start:12-Apr-2023 Instruction Type:Provider Instructions for Treatment Patient Instructions Indication:Non-smoker Start:25-Mar-2023 Instruction Type:Provider Instructions for Treatment How to Access Health Informa tion Online using Patient Portal and [employer] Apps Indication:Non-smoker Start:25-Mar-2023 Instruction Type:Patient Education Patient Instructions Indication:Non-smoker Start:25-Feb-2023 Instruction Type:Provider Instructions for Treatment How to Access Health Informa tion Online using Patient Portal and [employer] Apps Indication:Non-smoker Start:25-Feb-2023 Instruction Type:Patient Education Patient Instructions Indication:BMI 40.0-44.9, adult Start:25-Oct-2022 Instruction Type:Provider Instructions for Treatment How to Access Health Informa tion Online using Patient Portal and [employer] Apps Indication:BMI 40.0-44.9, adult Start:25-Oct-2022 Instruction Type:Patient Education Patient Instructions Indication:Non-smoker Start:15-Mar-2022 Instruction Type:Provider Instructions for Treatment How to Access Health Informa tion Online using Patient Portal and [employer] Apps Indication:Non-smoker Start:15-Mar-2022 Instruction Type:Patient Education Patient Instructions Indication:Morbid obesity Start:08-Mar-2022 Instruction Type:Provider Instructions for Treatment How to Access Health Informa tion Online using Patient Portal and [employer] Apps Indication:Morbid obesity Start:08-Mar-2022 Instruction Type:Patient Education Patient Instructions Indication:Non-smoker Start:22-Feb-2022 Instruction Type:Provider Instructions for Treatment How to Access Health Informa tion Online using Patient Portal and [employer] Apps Indication:Non-smoker Start:22-Feb-2022 Instruction Type:Patient Education Patient Instructions Indication:Non-smoker Start:05-Feb-2022 Instruction Type:Provider Instructions for Treatment How to Access Health Informa tion Online using Patient Portal and [employer] Apps Indication:Non-smoker Start:05-Feb-2022 Instruction Type:Patient Education Patient Instructions Indication:Impaired fasting glucose Start:24-Jan-2022 Instruction Type:Provider Instructions for Treatment How to Access Health Informa tion Online using Patient Portal and [employer] Apps Indication:Impaired fasting glucose Start:24-Jan-2022 Instruction Type:Patient Education Patient Instructions Indication:BMI 39.0-39.9,adult Start:24-Oct-2021 Instruction Type:Provider Instructions for Treatment How to Access Health Informa tion Online using Patient Portal and [employer] Apps Indication:BMI 39.0-39.9,adult Start:24-Oct-2021 Instruction Type:Patient Education Patient Instructions Indication:BMI 39.0-39.9,adult Start:30-May-2021 Instruction Type:Provider Instructions for Treatment How to Access Health Informa tion Online using Patient Portal and [employer] Apps Indication:BMI 39.0-39.9,adult Start:30-May-2021 Instruction Type:Patient Education Patient Instructions Indication:Encounter for screening for malignant neoplasm of colon (Renamed from Special screening for malignant neoplasms, colon) Start:25-Apr-2021 Instruction Type:Provider Instructions for Treatment How to Access Health Informa tion Online using Patient Portal and [employer] Apps Indication:Non-smoker Start:25-Apr-2021 Instruction Type:Patient Education Patient Instructions Indication:Non-smoker Start:17-Jan-2021 Instruction Type:Provider Instructions for Treatment How to Access Health Informa tion Online using Patient Portal and [employer] Apps Indication:Non-smoker Start:17-Jan-2021 Instruction Type:Patient Education Patient Instructions Indication:CKD stage G3b/A1, GFR 30-44 and albumin creatinine ratio <30 mg/g Start:16-Dec-2020 Instruction Type:Provider Instructions for Treatment How to Access Health Informa tion Online using Patient Portal and [employer] Apps Indication:JESUS (obstructive sleep apnea) Start:16-Dec-2020 Instruction Type:Patient Education Patient Instructions Indication:Non-smoker Start:09-Dec-2020 Instruction Type:Provider Instructions for Treatment How to Access Health Informa tion Online using Patient Portal and [employer] Apps Indication:HTN (hypertension), benign Start:09-Dec-2020 Instruction Type:Patient [...] tion Online using Patient Portal and [employer] Apps Indication:Non-smoker Start:29-Apr-2023 Instruction Type:Patient Education Patient Instructions Indication:Non-smoker Start:29-Apr-2023 Instruction Type:Provider Instructions for Treatment How to Access Health Informa tion Online using Patient Portal and [employer] Apps Indication:Non-smoker Start:12-Apr-2023 Instruction Type:Patient Education Patient Instructions Indication:Non-smoker Start:12-Apr-2023 Instruction Type:Provider Instructions for Treatment Patient Instructions Indication:Non-smoker Start:25-Mar-2023 Instruction Type:Provider Instructions for Treatment How to Access Health Informa tion Online using Patient Portal and [employer] Apps Indication:Non-smoker Start:25-Mar-2023 Instruction Type:Patient Education Patient Instructions Indication:Non-smoker Start:25-Feb-2023 Instruction Type:Provider Instructions for Treatment How to Access Health Informa tion Online using Patient Portal and 3rd [employer] Indication:Non-smoker Start:25-Feb-2023 Instruction Type:Patient Education Patient Instructions Indication:BMI 40.0-44.9, adult Start:25-Oct-2022 Instruction Type:Provider Instructions for Treatment How to Access Health Informa tion Online using Patient Portal and 3rd [employer] Indication:BMI 40.0-44.9, adult Start:25-Oct-2022 Instruction Type:Patient Education Patient Instructions Indication:Non-smoker Start:15-Mar-2022 Instruction Type:Provider Instructions for Treatment How to Access Health Informa tion Online using Patient Portal and 3rd [employer] Indication:Non-smoker Start:15-Mar-2022 Instruction Type:Patient Education Patient Instructions Indication:Morbid obesity Start:08-Mar-2022 Instruction Type:Provider Instructions for Treatment How to Access Health Informa tion Online using Patient Portal and 3rd [employer] Indication:Morbid obesity Start:08-Mar-2022 Instruction Type:Patient Education Patient Instructions Indication:Non-smoker Start:22-Feb-2022 Instruction Type:Provider Instructions for Treatment How to Access Health Informa tion Online using Patient Portal and [employer]rd [employer] Indication:Non-smoker Start:22-Feb-2022 Instruction Type:Patient Education Patient Instructions Indication:Non-smoker Start:05-Feb-2022 Instruction Type:Provider Instructions for Treatment How to Access Health Informa tion Online using Patient Portal and [employer]rd [employer] Indication:Non-smoker Start:05-Feb-2022 Instruction Type:Patient Education Patient Instructions Indication:Impaired fasting glucose Start:24-Jan-2022 Instruction Type:Provider Instructions for Treatment How to Access Health Informa tion Online using Patient Portal and 3rd [employer] Indication:Impaired fasting glucose Start:24-Jan-2022 Instruction Type:Patient Education Patient Instructions Indication:BMI 39.0-39.9,adult Start:24-Oct-2021 Instruction Type:Provider Instructions for Treatment How to Access Health Informa tion Online using Patient Portal and 3rd [employer] Indication:BMI 39.0-39.9,adult Start:24-Oct-2021 Instruction Type:Patient Education Patient Instructions Indication:BMI 39.0-39.9,adult Start:30-May-2021 Instruction Type:Provider Instructions for Treatment How to Access Health Informa tion Online using Patient Portal and 3rd [employer] Indication:BMI 39.0-39.9,adult Start:30-May-2021 Instruction Type:Patient Education Patient Instructions Indication:Encounter for screening for malignant neoplasm of colon (Renamed from Special screening for malignant neoplasms, colon) Start:25-Apr-2021 Instruction Type:Provider Instructions for Treatment How to Access Health Informa tion Online using Patient Portal and 3rd [employer] Indication:Non-smoker Start:25-Apr-2021 Instruction Type:Patient Education Patient Instructions Indication:Non-smoker Start:17-Jan-2021 Instruction Type:Provider Instructions for Treatment How to Access Health Informa tion Online using Patient Portal and [employer]rd [employer] Indication:Non-smoker Start:17-Jan-2021 Instruction Type:Patient Education Patient Instructions Indication:CKD stage G3b/A1, GFR 30-44 and albumin creatinine ratio <30 mg/g Start:16-Dec-2020 Instruction Type:Provider Instructions for Treatment How to Access Health Informa tion Online using Patient Portal and 3rd [employer] Indication:JESUS (obstructive sleep apnea) Start:16-Dec-2020 Instruction Type:Patient Education Patient Instructions Indication:Non-smoker Start:09-Dec-2020 Instruction Type:Provider Instructions for Treatment How to Access Health Informa tion Online using Patient Portal and 3rd [employer] Indication:HTN (hypertension), benign Start:09-Dec-2020 Instruction Type:Patient [...] tion Online using Patient Portal and 3rd [employer] Indication:Non-smoker Start:29-Apr-2023 Instruction Type:Patient Education Patient Instructions Indication:Non-smoker Start:29-Apr-2023 Instruction Type:Provider Instructions for Treatment How to Access Health Informa tion Online using Patient Portal and 3rd [employer] Indication:Non-smoker Start:12-Apr-2023 Instruction Type:Patient Education Patient Instructions Indication:Non-smoker Start:12-Apr-2023 Instruction Type:Provider Instructions for Treatment Patient Instructions Indication:Non-smoker Start:25-Mar-2023 Instruction Type:Provider Instructions for Treatment How to Access Health Informa tion Online using Patient Portal and 3rd [employer] Indication:Non-smoker Start:25-Mar-2023 Instruction Type:Patient Education Patient Instructions Indication:Non-smoker Start:25-Feb-2023 Instruction Type:Provider Instructions for Treatment How to Access Health Informa tion Online using Patient Portal and 3rd [employer] Indication:Non-smoker Start:25-Feb-2023 Instruction Type:Patient Education Patient Instructions Indication:BMI 40.0-44.9, adult Start:25-Oct-2022 Instruction Type:Provider Instructions for Treatment How to Access Health Informa tion Online using Patient Portal and 3rd [employer] Indication:BMI 40.0-44.9, adult Start:25-Oct-2022 Instruction Type:Patient Education Patient Instructions Indication:Non-smoker Start:15-Mar-2022 Instruction Type:Provider Instructions for Treatment How to Access Health Informa tion Online using Patient Portal and 3rd [employer] Indication:Non-smoker Start:15-Mar-2022 Instruction Type:Patient Education Patient Instructions Indication:Morbid obesity Start:08-Mar-2022 Instruction Type:Provider Instructions for Treatment How to Access Health Informa tion Online using Patient Portal and 3rd [employer] Indication:Morbid obesity Start:08-Mar-2022 Instruction Type:Patient Education Patient Instructions Indication:Non-smoker Start:22-Feb-2022 Instruction Type:Provider Instructions for Treatment How to Access Health Informa tion Online using Patient Portal and 3rd [employer] Indication:Non-smoker Start:22-Feb-2022 Instruction Type:Patient Education Patient Instructions Indication:Non-smoker Start:05-Feb-2022 Instruction Type:Provider Instructions for Treatment How to Access Health Informa tion Online using Patient Portal and 3rd [employer] Indication:Non-smoker Start:05-Feb-2022 Instruction Type:Patient Education Patient Instructions Indication:Impaired fasting glucose Start:24-Jan-2022 Instruction Type:Provider Instructions for Treatment How to Access Health Informa tion Online using Patient Portal and 3rd [employer] Indication:Impaired fasting glucose Start:24-Jan-2022 Instruction Type:Patient Education Patient Instructions Indication:BMI 39.0-39.9,adult Start:24-Oct-2021 Instruction Type:Provider Instructions for Treatment How to Access Health Informa tion Online using Patient Portal and 3rd [employer] Indication:BMI 39.0-39.9,adult Start:24-Oct-2021 Instruction Type:Patient Education Patient Instructions Indication:BMI 39.0-39.9,adult Start:30-May-2021 Instruction Type:Provider Instructions for Treatment How to Access Health Informa tion Online using Patient Portal and 3rd [employer] Indication:BMI 39.0-39.9,adult Start:30-May-2021 Instruction Type:Patient Education Patient Instructions Indication:Encounter for screening for malignant neoplasm of colon (Renamed from Special screening for malignant neoplasms, colon) Start:25-Apr-2021 Instruction Type:Provider Instructions for Treatment How to Access Health Informa tion Online using Patient Portal and 3rd [employer] Indication:Non-smoker Start:25-Apr-2021 Instruction Type:Patient Education Patient Instructions Indication:Non-smoker Start:17-Jan-2021 Instruction Type:Provider Instructions for Treatment How to Access Health Informa tion Online using Patient Portal and 3rd [employer] Indication:Non-smoker Start:17-Jan-2021 Instruction Type:Patient Education Patient Instructions Indication:CKD stage G3b/A1, GFR 30-44 and albumin creatinine ratio <30 mg/g Start:16-Dec-2020 Instruction Type:Provider Instructions for Treatment How to Access Health Informa tion Online using Patient Portal and 3rd [employer] Indication:JESUS (obstructive sleep apnea) Start:16-Dec-2020 Instruction Type:Patient Education Patient Instructions Indication:Non-smoker Start:09-Dec-2020 Instruction Type:Provider Instructions for Treatment How to Access Health Informa tion Online using Patient Portal and 3rd [employer] Indication:HTN (hypertension), benign Start:09-Dec-2020 Instruction Type:Patient [...] section and content) DATE CREATED AUTHOR AUTHOR'S SAVIIZ ATION 05/24/2018 [facility] DATE CREATED AUTHOR AUTHOR'S ORGANIZ ATION 05/27/2018 [facility], [place], operated by [facility] DATE CREATED AUTHOR AUTHOR'S ORGANIZ ATION 10/30/2022 [facility] FOR RECORDS PERTAINING TO PATIENTS WHO [...] BE BASED ON THE PRIMARY CLINICAL RECORDS. [facility] [employer] provides no warranty or guarantee of the accuracy or completeness of information in this document.
== END 2023-08-14 20:29 | disposition home or self-care (01) ==
PROVIDERS: Emergency Provider Student in an Organized Health Care Education/Training Program; PCP Internal Medicine; Visit Provider Student in an Organized Health Care Education/Training Program
DX: R25.8 Other abnormal involuntary movements (principal); N18.30 Chronic kidney disease, stage 3 unspecified; I12.9 Hypertensive chronic kidney disease with stage 1 through stage 4 chronic kidney disease, or unspecified chronic kidney disease; Z86.73 Personal history of transient ischemic attack (TIA), and cerebral infarction without residual deficits; Z79.82 Long term (current) use of aspirin; Z79.899 Other long term (current) drug therapy
CPT/HCPCS: 70450; 71045; 80048; 84484; 85025; 85610; 85730; 93005; 99285; A4216

== ENCOUNTER 2023-08-27 20:04 | Emergency (ER) | payer MEDICARE, OTHER, SELFPAY ==
[2023-08-27 20:05] VITALS: BP 176/81; PULSE 67; RESP 19; TEMP 36.4; O2SAT 98
--- NOTE | 2023-08-27 20:28 | RAD_ITS ---
EXAM: XR CHEST, 1 VIEW CLINICAL INDICATION: chest pain TECHNIQUE: Frontal view of the chest. COMPARISON: 08/14/2023 FINDINGS: LUNGS AND PLEURAL SPACES: Right basilar granuloma. No pneumothorax. No effusion. No definite focal airspace disease. HEART: No significant abnormality. Cardiac silhouette not enlarged. MEDIASTINUM: Central airways and mediastinal contour are unremarkable. BONES/JOINTS: No significant abnormality. No acute fracture. SOFT TISSUES: No significant abnormality. VASCULATURE: Atherosclerosis. UPPER ABDOMEN: Status post cholecystectomy. RAD/Chest 1 View (Portable) IMPRESSION: No definite focal airspace disease. No additional acute findings. Electronically Signed: David Rahman DO at 20:43 EST ,
[2023-08-27 21:38] LABS: Absolute Lymphocyte Count 1.03 X10^3/uL (0.83-4.51); Absolute Neutrophil Count 6.2 X10^3/uL (2.0-7.7); Basophil# 0.02 X10^3/uL; Basophil% 0.3 % (0-1); Eosinophil# 0.15 X10^3/uL; Hematocrit 32.5 % (37-47); Hemoglobin 10.3 g/dL (12.0-15.0); Lymphocyte # 1.03 X10^3/ul (0.83-4.51); Lymphocyte % 13.5 % (19-41); Mean Corp Hgb Conc 31.7 g/dL (32-36); Mean Corpuscular Hgb 27.8 pg (27.0-32.0); Mean Corpuscular Volume 87.8 fL (81-99); Mean Platelet Vol. 10.4 fl (6.2-12.0); Monocyte# 0.27 X10^3/uL; Monocyte% 3.5 % (0-10); NRBC Flagged by Analyzer 0 % (0-5); Neutrophil # 6.15 X10^3/uL (2.7-7.7); Neutrophil % 80.3 % (47-70); Platelet Count 228 K/mm3 (150-450); RBC Distribution Width CV 13.5 % (11.6-14.6); RBC Distribution Width SD 43.5 fl (35.1-43.9); White Blood Count 7.7 K/mm3 (4.4-11.0)
--- NOTE | 2023-08-27 21:46 | EX.ED.DYSGE1 ---
HPI History of Present Illness Chief Complaint: Dizziness Narrative Narrative: Patient presents with pounding episodes in her chest. Patient was admitted on about the with TIA symptoms. But she did not have the pounding before this. The stroke neurologist thought that this could be intermittent atrial fibrillation show they recommended a Holter type monitor. She had 1 on but it caused skin reaction so she had to have another one on. This 1 is to be worn until 05 September. On the she came in with an episode where she got warm then cold and maybe a little dizzy and then pounding in the chest. She feels the heart is going fast but regular. But did not have chest pain. She had another episode on the but did not come in. She had another episode tonight but it lasted longer than the other symptoms. She feels back to normal now. She did not have neurologic symptoms with this. [facility] Medical History Benign paroxysmal positional vertigo CKD (chronic kidney disease) stage 3, GFR 30-59 ml/min Essential hypertension Non-rheumatic mitral valve stenosis Premature ventricular contraction Pulmonary hypertension TIA (transient ischemic attack) Vertigo Home Medications cyanocobalamin (vitamin B-12) 2,500 mcg sublingual tablet (Vitamin B-12) 2,500 mcg PO MOWEFR SUPPLEMENT 10/18/21 [History Last Taken Unknown] losartan 25 mg tablet 25 mg PO DAILY BLOOD PRESSURE 10/18/21 [History Last Taken Unknown] atorvastatin 80 mg tablet 80 mg PO QHS 90 days #90 tabs 08/09/23 [Rx Last Taken Unknown] aspirin 81 mg chewable tablet 324 mg PO BREAKFAST 08/27/23 [History Last Taken Unknown] Allergy/AdvReac Type Severity Reaction Status Date / Time poison brandee extract Allergy Rash Verified 08/27/23 20:05 poison oak extract Allergy Rash Verified 08/27/23 20:05 Family History Mother Diabetes Hypertension Surgical History History of cholecystectomy (~2008) Social History household members: spouse housing: other number of children: 2 pets and animals: No Smoking Status: Never smoker alcohol intake: current details: occasional substance use type: does not use caffeine: Yes Type: carbonated beverages ROS ROS ED ROS Narrative A complete review of systems was performed and is negative except as documented in the history of present illness. Some specific details below. Constitutional: No recent fevers or chills. EYE: No discharge, visual complaints, or pain. ENT: No difficulty swallowing. No swelling. No pain. No reflux symptoms. CV: See history of present illness. Respiratory: Not short of breath or coughing GI: No abdominal pain. No nausea vomiting diarrhea. No blood in stool. : No frequency dysuria or hematuria. Musculoskeletal: No recent trauma. No pains. No swelling. Skin: No rash. Nondiaphoretic. Neuro: No weakness or numbness. She has not been having any recurrent neurologic symptoms. She is taking her aspirin 4 baby aspirin a day Endocrine: No polyuria or polydipsia. EXAM Physical Exam Narrative Exam Narrative: CONSTITUTIONAL: Patient is nontoxic in appearance. The patient looks comfortable. Work of breathing looks normal. HEENT: No notable trauma. Mucous membranes moist. No sinus tenderness. No indication of pain with swallowing. EYES: No conjunctival injection. No proptosis. NECK:No JVD. No stridor. CARDIOVASCULAR: Regular rate. Regular rhythm. No notable murmur. No JVD. On the monitor she is in normal sinus at approximately 65. She does have her Holter monitor on the mid chest. RESPIRATORY: No respiratory distress. Breathing is unlabored. No wheezes. No rhonchi. No rales. No pain with a deep breath. No chest wall tenderness. Saturations are normal at 98% on room air showing no hypoxia. GASTROINTESTINAL: Not distended. Bowel sounds are normal. No tenderness. No guarding. No rebound. No palpable mass. No bruit is heard. GENITOURINARY: No tenderness over the bladder. No CVA tenderness. MUSCULOSKELETAL: Atraumatic. No peripheral edema. No cord. No tenderness along the deep venous system. No asymmetry. No distended veins. NEUROLOGICAL: Patient is alert and appropriate. No focal deficit noted. SKIN: No noted rashes. No diaphoresis. PSYCHIATRIC: Patient is calm. Mood is appropriate. Const Vital Signs: 08/27/23 20:05 08/27/23 21:22 08/27/23 23:33 Temperature 97.6 F L Temperature Source Temporal Pulse Rate 67 66 Respiratory Rate 19 H 14 Blood Pressure 176/81 H 188/91 H Blood Pressure Mean 112 123 Pulse Ox 98 95 Oxygen Delivery Method Room Air Room Air 08/28/23 00:18 Temperature Temperature Source Pulse Rate 74 Respiratory Rate 16 Blood Pressure 189/80 H Blood Pressure Mean 116 Pulse Ox 97 Oxygen Delivery Method MDM MDM MDM Narrative Medical decision making narrative: My independent interpretation of the patient's single view AP chest x-ray shows no acute process. Final reading is similar. Patient CBC shows mild nonspecific anemia otherwise normal. Patient's electrolytes show no marked abnormalities. Slight elevation of her creatinine at 1.29 but this does not need acute treatment nor is it the cause of her symptoms. Patient's troponin is normal at 17. Patient has had about 5 or 6 troponins in the last 3 weeks. They have been normal. There is no trend of rise in them. Patient had a few episodes here where she felt some palpitations. But we looked on the monitor and she stayed in the mid 60s in sinus. There is no ectopy or abnormality seen. I called her [employer] that makes the Holter monitor that she is wearing. We went through the process. We talked about tach. They are trying to send some information. But they verify that every time she has pressed the button there have been no dysrhythmias. Her heart rate is normally been sinus in the 70s. She has 2 negative troponins. Her over all workup is negative. She would like to go home I think that is reasonable. Lab Data Attestation: I reviewed the patient's lab results. Labs: Laboratory Results - last 24 hr 08/27/23 08/27/23 21:26 23:41 WBC 7.7 RBC 3.70 L Hgb 10.3 L Hct 32.5 L MCV 87.8 MCH 27.8 MCHC 31.7 L RDW Std Deviation 43.5 RDW Coeff of Jaye 13.5 Plt Count 228 MPV 10.4 Immature Gran % (Auto) 0.400 Neut % (Auto) 80.3 H Lymph % (Auto) 13.5 L [place] % (Auto) 3.5 Eos % (Auto) 2.0 Baso % (Auto) 0.3 Absolute Neuts (auto) 6.2 Absolute Lymphs (auto) 1.03 Nucleated RBC % 0 Sodium 145 Potassium 3.7 Chloride 117 H Carbon Dioxide 22.0 Anion Gap 6 BUN 17 Creatinine 1.29 H Est GFR (MDRD) Af Amer 52 L Est GFR (MDRD) Non-Af 43 L BUN/Creatinine Ratio 13.2 Glucose 111 H Calcium 8.8 Troponin I High Sens 17 22 Radiography Diagnostic Testing: Clinical Impression(s) from Imaging Studies Chest X-Ray 08/27/23 20:28 IMPRESSION: No definite focal airspace disease. No additional acute findings. Electronically Signed: David Rahman DO at 20:43 EST , EKG Initial EKG: Comments: My independent interpretation of the patient's EKG shows a normal sinus rhythm with a rate of 64. No ectopy. No acute ST elevation or depression. No preexcitation. SC interval, QRS duration and QTc normal. Discharge Plan Triage Chief Complaint: Dizziness ED Provider: Brandon Arrieta Dx/Rx/DC Orders Clinical Impression: Skin flushed, Intermittent palpitations Instructions: ED Palpitations Prescriptions: No Action cyanocobalamin (vitamin B-12) [Vitamin B-12] 2,500 mcg tablet, sublingual 2,500 mcg PO MOWEFR losartan 25 mg tablet 25 mg PO DAILY aspirin 81 mg Tablet,Chewable 324 mg PO BREAKFAST atorvastatin 80 mg Tablet 80 mg PO QHS 90 Days Qty: 90 3RF Primary Care Provider: Patricia Becker Referrals: Patricia Becker DO [Primary Care Provider] - As soon as possible Disposition Disposition: Home, Self Care Discharge Date/Time: 08/28/23 00:18
[2023-08-27 21:59] LABS: Anion Gap 6 (5-15); BUN 17 mg/dL (7-18); BUN/Creat Ratio 13.2 RATIO (10-20); Calcium,Total 8.8 mg/dL (8.5-10.1); Chloride 117 mmol/L (98-107); Creatinine, Serum 1.29 mg/dL (0.55-1.02); EST Glomerular Filtration Rate 43 mL/min (>60); Est Glom Filt Rate - Afr Amer 52 mL/min (>60); Glucose 111 mg/dL (74-106); Potassium 3.7 mmol/L (3.5-5.1); Sodium Level 145 mmol/L (136-145); Troponin-I HS (w/2H Reflex) 17 pg/mL (3.0-54.0)
--- OUTSIDE RECORDS SUMMARY | 2023-08-27 21:59 | XMS RPT_ITS | CCD ---
Author Name Unknown Address [address] [place] [address] Organization [facility] Care Team Providers Care Family Lawyer Name Role Phone Troy Ovalle Unavailable Unavailable [...] Unavailable Jannette Dooley LPN Unavailable Unavailable Gravius QUICKBOOKS BOOKKEEPER, Shaye Unavailable Unavailable Messenger Senia CHRISTIAN Unavailable Unavailable Unavailable Unavailable Ciesa JADA, Yola Barney Unavailable Elijah Chaves LPN Unavailable Unavailable Unavailable Unavailable Jp PARSONS, Darrian Kingston Unavailable Edwina Braden LPN Unavailable Unavailable Nani Gonzales Unavailable Rosita DO, Patricia Unavailable Makayla Agustin MD Unavailable Ciesa, Yola Unavailable Yola Hinds Unavailable Priscilla ALLEN, Karlosa Unavailable Unavailable Deedee Cruz CNP Unavailable [phone] Lud[address] HANNA , Dr. Donovan Dolan Unavailab le Patricia Becker DO Attending Unavailable Makayla Agustin MD Referring Unavailable Patricia Becker DO Consulting Unavailable [facility] Unavailable Unavailable Medications Current Medications Medication [...] Drug Class(es) Dates Sig (Normalized) Sig (Original) [id number] 200 actuat albuterol 0.09 mg/actuat metered dose [...] 10-25-2022 Office outpatient visit 10 minutes Patricia Rostia DO Work Phone: [facility] Start: [...] 12-01-2018 Office outpatient visit 25 minutes Patricia Beckre [facility] Start: 11-05-2018 End: 11-05-2018 Office outpatient visit 15 minutes Patricia Becker [facility] Start: 10-29-2018 End: 10-29-2018 Office outpatient visit 15 minutes Patricia Becker [facility] Start: 10-08-2018 End: 10-08-2018 Office outpatient visit 40 minutes Patricia Becker [facility] Start: 04-23-2018 End: 04-24-2018 Patient encounter Troy Ovalle Facility:[facility] Start: 04-23-2018 Patient encounter Facil [id number] Start: 04-16-2018 End: 04-17-2018 Patient encounter Troy Ovalle Facility:[facility] Start: 04-16-2018 End: 04-17-2018 Patient encounter Troy Ovalle Facility:[facility] Start: 04-16-2018 Patient encounter Facil [id number] Start: 08-06-2017 End: 08-06-2017 Office outpatient visit 15 minutes Patricia Becker [facility] Start: 05-24-2017 End: 05-24-2017 Office outpatient visit 5 minutes Patricia Becker [facility] Start: 09-20-2016 End: 09-20-2016 Office outpatient visit 15 minutes Patricia Becker [facility] Start: 06-08-2016 End: 06-08-2016 Phone Encounter Patricia Solomon [facility] Start: 04-18-2016 End: 04-18-2016 Office [...] 11-13-2013 End: 11-13-2013 Annotation/Addendum Patricia Becker [facility] Start: 11-11-2013 End: 11-11-2013 Annotation/Addendum Patricia Becker [facility] Start: 11-02-2013 End: 11-02-2013 Office outpatient visit 15 minutes Patricia Rosita [facility] Start: 10-05-2013 End: 10-05-2013 Office outpatient visit 15 minutes Patricia Becker [facility] Start: 09-29-2013 End: 09-29-2013 Patient encounter procedure Patricia Becker [facility] Start: 09-01-2013 End: 09-01-2013 Patient encounter procedure Patricia Becker [facility] Start: 07-10-2013 End: 07-10-2013 Annotation/Addendum Patricia Becker [facility] Ent[facility] Professor al Medicine Start: 07-06-2013 End: 07-06-2013 Office outpatient visit 10 minutes Patricia Becker [facility] Start: 06-01-2013 End: 06-01-2013 Office outpatient visit 10 minutes Patricia Becker [facility] Start: 05-18-2013 End: 05-18-2013 Annotation/Addendum Patricia Becker [facility] Entomology Professor al Medicine Start: 05-18-2013 End: 05-18-2013 Office outpatient visit 25 minutes Patricia Becker [facility] Start: 06-23-2012 End: 06-23-2012 Patient encounter procedure Patricia Becker [facility] Start: 05-26-2012 End: 05-26-2012 Patient encounter procedure Patricia Becker [facility] Procedures Date Procedure Procedure Detail Performing Clinician Start: 11-23-2021 End: 11-23-2021 Kidney and Bladder Comments: See Note; NOTES: [facility] Imaging Services [address] [place] [address] Kidney and Bladder MR#: [id number] Acct: [id number] Name: VERONICA COOK Srinivasan Rep #: [id number] : 1950 F 71 From: Ozzy Luz PCP: Dr. Patricia Becker DO Status: REG CLI Study: Kidney and Bladder Date of Exam: 11/23/21 Exam# [id number] Ordering Dr: Nani Gonzales DO STUDY: RENAL [...] 15:37 EDT Reading Location ID and State: [facility] / [place] , Service support , CC: Dr. Nani Gonzales DO; Dr. Patricia Becker DO Char Filter Tank Tender: Signed Patricia Becker DO Work Phone: Start: 05-22-2021 End: 05-22-2021 Breast Limited Unilateral Comments: See Note; NOTES: [facility] Imaging Services [address] [place] [address] Breast Limited Unilateral MR#: [id number] Acct: [id number] Name: VERONICA COOK Rep #: [id number] : 1950 F 71 From: Bishnu neville MD PCP: Dr. Patricia Becker DO Status: REG CLI Study: Breast Limited Unilateral Date of Exam: Exam# [id number] Ordering Dr: Yola Hinds NP STUDY: ULTRASOUND [...] CC: RAISSA Hinds; Dr. Patricia Becker DO Char Filter Tank Tender: Signed oYla Hinds [facility] Work Phone: Start: 05-18-2021 End: 05-19-2021 Dexa Bone Density Study Comments: See Note; NOTES: [facility] Imaging Services [address] [place] [address] Dexa Bone Density Study MR#: [id number] Acct: [id number] Name: VERONICA COOK Rep #: [id number] : 1950 F 71 From: Bishnu neville MD PCP: Dr. Patricia Becker, DO Status: REG CLI Study: Dexa Bone Density Study Date of Exam: 05/18/21 Exam# [id number] Ordering Dr: Yola Hinds NP BEND UP-C STUDY: DUAL ENERGY X-RAY ABSORPTIOMETRY / DXA [...] CC: RAISSA Hinds; Dr. Patricia Becker DO Char Filter Tank Tender: Signed Yola Hinds [facility] Work Phone: Start: 05-18-2021 End: 05-19-2021 SCRN MAMM (CAD)W/EARLINE BILAT Comments: See Note; NOTES: [facility] Imaging Services [address] [place] [address] SCRN MAMM (CAD)W/EARLINE BILAT MR#: [id number] Acct: [id number] Name: VERONICA COOK Rep #: [id number] : 1950 F 71 From: Bishnu neville MD PCP: Dr. Patricia Becker DO Status: REG CL Study: SCRN MAMM (CAD)W/EARLINE BILAT Date of Exam: 04/29 08/18 Exam# [id number] Ordering Dr: Yola Hinds NP BEND UP-C MAMMOGRAPHY - BILATERAL SCREENING REASON FOR EXAM: [...] delay biopsy of a clinically suspicious abnormality. [id number] Electronically Signed: Bishnu Almanzar MD at 15:06 EDT , Service support , CC: RAISSA Hinds; Dr. Patricia Becker DO Char Filter Tank Tender: Signed Yola Hinds [facility] Work Phone: Start: 01-12-2021 End: 2021 Abdomen/Pelvis without Cont Comments: See Note; NOTES: [facility] Imaging Services [address] [place] [address] Abdomen/Pelvis without Cont MR#: [id number] Acct: [id number] Name: VERONICA COOK Rep #: [id number] : 1950 F 70 From: Bishnu neville MD PCP: Dr. Patricia Becker, DO Status: REG CLI Study: Abdomen/Pelvis without Cont Date of Exam: 12/27 02/15 Exam# [id number] Ordering Dr: Rosaura Prather MD STUDY: CT [...] Rosaura Prather MD; Dr. Patricia Becker DO Char Filter Tank Tender: Signed Patricia Becker DO Work Phone: Start: 05-05-2019 End: 05-05-2019 Operative Report Comments: See Note; NOTES: [facility] Medical Records Department [address] [place] [address] Operative Report 05/05/19 0856 MR#: [id number] Acct: [id number] Name: VERONICA COOK Rep #: [id number] : 1950 69 From: Rosaura Prather MD PCP: Patricia Becker DO Status: REG SD Y Location: [place] [address] Problem List (1) Migration of ureteral stent [...] 05-05-2019 Discharge Instruction Comments: See Note; NOTES: [facility] Medical Records Department [address] [place] [address] Instructions for Home/Discharge Instructions 05/05/19 0859 MR#: [id number] Acct: [id number] Name: VERONICA COOK Rep #: [id number] : 1950 69 From: Rosaura Prather MD PCP: Patricia Becker DO Status: REG [facility] Discharge Diet: No Restrictions Discharge Activity: Return [...] Abdomen Single View Comments: See Note; NOTES: [facility] Imaging Services [address] [place] [address] Abdomen Single View MR#: [id number] Acct: [id number] Name: VERONICA COOK Rep #: [id number] : 1950 F 69 From: Alberto Mcintosh MD PCP: Patricia Becker DO Status: REG CLI Study: Abdomen Single View Date of Exam: 04/29/19 Exam# [id number] Ordering Dr: Rosaura Prather MD STUDY: X-RAY [...] CC: Rosaura Prather MD; Patricia Becker DO Char Filter Tank Tender: Signed Patricia Becker Start: 04-21-2019 End: 04-21-2019 Operative Report Comments: See Note; NOTES: [facility] Medical Records Department [address] [place] [address] Operative Report 04/21/19 1031 MR#: [id number] Acct: [id number] Name: VERONICA COOK Rep #: [id number] : 1950 69 From: Rosaura Prather MD PCP: Patricia Becker DO Status: [facility] Y Location: [place] [address] Problem List (1) Calculus of kidney with [...] injuries. Using the safety wire, a 7 English 24 cm double-J stent was inserted without [...] 04-21-2019 Discharge Instruction Comments: See Note; NOTES: [facility] Medical Records Department [address] [place] [address] Instructions for Home/Discharge Instructions 04/21/19 1030 MR#: [id number] Acct: [id number] Name: VERONICA COOK Rep #: [id number] : 1950 69 From: Rosaura Prather MD PCP: Patricia Becker DO Status: REG [facility] Discharge Diet: No Restrictions Discharge Activity: May [...] Abdomen Single View Comments: See Note; NOTES: [facility] Imaging Services [address] [place] [address] Abdomen Single View MR#: [id number] Acct: [id number] Name: VERONICA COOK Rep #: [id number] : 1950 F 69 From: Augusto Salazar MD PCP: Patricia Becker DO Status: REG CLI Study: Abdomen Single View Date of Exam: 04/13/19 Exam# [id number] Ordering Dr: Rosaura Prather MD STUDY: X-RAY [...] CC: Rosaura Prather MD; Patricia Becker DO Char Filter Tank Tender: Signed Patricia Becker Start: 03-24-2019 End: 03-24-2019 Operative Report Comments: See Note; NOTES: [facility] Medical Records Department [address] [place] [address] Operative Report 03/24/19 0751 MR#: [id number] Acct: [id number] Name: VERONICA COOK Rep #: [id number] : 1950 69 From: Rosaura Prather MD PCP: Patricia Becker DO Status: REG [facility] Y Location: [place] [address] Problem List (1) Left renal stone Status: [...] Glidewire was inserted without difficulty. A 6 English 24 cm double-J stent was passed and had good positioning in the renal pelvis as well as the urinary bladder. There were no complications during the procedure. She was taken to the recovery room in good condition. Type of Anesthesia:: General Description of Procedure: The stone was well fragmented at the conclusion of 3000 shocks. A 6 English 24 cm double-J stent was used. Grafts/Implants Used: [id number] JJ stent - Complications none - Admit VTE Documentation VTE Present on Admission: Yes VTE Mechan Device Prophylaxis: SCD's VTE Pharm Prophylaxis ordered?: No Reason prophylaxis not ordered:: Treatment Not Indicated 03/24/19 1012 <Electronically signed by Rosaura Prather MD> Date Rosaura Prather MD CC: Rosaura Prather MD; Patricia Becker DO Signed Patricia Becker Start: 03-24-2019 End: 03-24-2019 Discharge Instruction Comments: See Note; NOTES: [facility] Medical Records Department [address] [place] [address] Instructions for Home/Discharge Instructions 03/24/19 0753 MR#: [id number] Acct: [id number] Name: VERONICA COOK Rep #: [id number] : 1950 69 From: Rosaura Prather MD PCP: Patricia Becker DO Status: REG [facility] Discharge Diet: No Restrictions Discharge Activity: May [...] Abdomen Single View Comments: See Note; NOTES: [facility] Imaging Services [address] [place] [address] Abdomen Single View MR#: [id number] Acct: [id number] Name: VERONICA COOK Rep #: [id number] : 1950 F 69 From: Trell Ramirez DO PCP: Patricia Becker DO Status: REG CLI Study: Abdomen Single View Date of Exam: 03/11/19 Exam# [id number] Ordering Dr: Rosaura Prather MD STUDY: X-RAY [...] Trell Ramirez DO at 18:04 EDT Tel [phone], Service support , CC: Rosaura Prather MD; Patricia Becker DO Char Filter Tank Tender: Signed Patricia Becker Start: 11-04-2018 End: 11-04-2018 TXT - Blood Flow Screening Comments: See Note; NOTES: [facility] Cardiovascular Services [address] [place] [address] 11/04/18 0950 MR#: [id number] Acct: [id number] Name: VERONICA COOK Rep #: [id number] : 1950 68 From: Paxton Zurita MD Attending Dr: Patricia Becker DO Status: REG REF Ordering Dr: Date: 11/04/18 Location: [facility] Sex: F C Admitted: Reason For [...] Dictated: 11/04/18 0950 Date Transcribed: 11/04/18 1602 Char Filter Tank Tender: Signed Patricia Becker Start: 09-30-2018 End: 09-30-2018 Emergency Department Summary Comments: See Note; NOTES: [facility] Medical Records Department [address] [place] [address] Emergency Department Summary 09/30/181957 MR#: [id number] Acct: [id number] Name: VERONICA COOK Rep #: [id number] : 1950 68 From: Shannon Perdue MD [...] no illnesses no history of stroke seizure OK or PE hypertension is well controlled Physical [...] Intractable vertigo This note was generated with Cloud[employer]onge dictation software. It may contain incorrect words, [...] your Primary Care Provider. Call [facility] ([phone]) or report to the closest Emergency Room. Call 911 if necessary. 09/30/18 5063 <Electronically signed by Shannon Perdue MD> Date Shannon Perdue MD Cosigner Signature (If Indicated): Date CC: Patricia Lewis Start: 09-30-2018 End: 09-30-2018 Brain/Head without Contrast Comments: See Note; NOTES: [facility] Imaging Services [address] [place] [address] Brain/Head without Contrast MR#: [id number] Acct: [id number] Name: VERONICA COOK Rep #: [id number] : 1950 F 68 From: Conor Grijalva MD PCP: Patricia Becker DO Status: REG Study: Brain/Head without Contrast Date of Exam: 09/30/18 Exam# [id number] Ordering Dr: Shannon Perdue MD STUDY: CT [...] CC: MD Grisel Perdue; Patricia Becker DO Char Filter Tank Tender: Signed Patricia Becker Start: 04-17-2016 End: 04-17-2016 Abdomen Single View Comments: See Note; NOTES: [facility] Imaging Services [address] [place] [address] [place] 4d Abdomen Single View MR#: [id number] Acct: [id number] Name: VERONICA COOK Rep #: [id number] : 1950 F 66 From: Trell Ramirez DO PCP: Makayla Agustin MD Status: REG CLI Study: Abdomen Single View Date of Exam: 04/17/16 Exam# [id number] Ordering Dr: Julio Suarez MD STUDY: X-RAY [...] Trell Ramirez DO at 16:50 EDT Tel [phone], Service support [phone], CC: Makayla Agustin MD; Julio Suarez MD Char Filter Tank Tender: Signed Patricia Rosita Start: 04-15-2015 End: 04-15-2015 Abdomen/Pelvis without Cont Comments: See Note; NOTES: [facility] Imaging Services [address] [place] [address] CAT Scan Report MR#: [id number] Acct: [id number] Name: VERONICA COOK Rep #: [id number] : 1950 F 65 From: Bishnu Almanzar MD PCP: Makayla Agustin MD Status: REG CLI Study: Abdomen/Pelvis without Cont Date of Exam: 04/15/15 Exam# [id number] Ordering Dr: Julio Suarez MD STUDY: CT [...] Bishnu Almanzar MD at 15:39 EDT Tel [phone], Service support [phone], CC: Makayla Agustin MD; Julio Suarez MD Char Filter Tank Tender: Signed Patricia Becker Start: 04-14-2015 End: 04-14-2015 [...] 02-25-2023 Cyanocobalamin vitamin b-12 VITAMIN B-12 (CYANOCOBALAMIN) (81610) [facility]; [facility] Work Phone: Start: 02-25-2023 Assay of thyroid stimulating hormone tsh TSH (THYROID STIMULATING HORMONE) (47215) [facility]; [facility] Work Phone: Start: 02-25-2023 25 hydroxy includes fractions if performed CALCIFEDIOL (74091) [facility]; [facility] Work Phone: Start: 02-25-2023 Urine albumin quantitative MICROALBUMIN: CREATININE RATIO (57787) AND (05431) [facility]; [facility] Work Phone: Start: 02-25-2023 Comprehensive metabolic panel METABOLIC PANEL, COMPREHENSIVE (91506) [facility]; [facility] Work Phone: Start: 02-25-2023 Lipid panel LIPID PANEL (94130) [facility]; [facility] Work Phone: Start: 02-25-2023 Blood count complete auto&auto difrntl wbc CBC with auto diff (91712) [facility]; [facility] Work Phone: Start: 02-25-2023 Gluc bld gluc mntr dev cleared fda spec home use Blood Glucose , Office (96460) [facility]; [facility] Work Phone: Start: 02-25-2023 Hemoglobin glycosylated a1c HgA1C , Office (39899) [facility]; [facility] Work [...] 01-24-2022 Cyanocobalamin vitamin b-12 VITAMIN B-12 (CYANOCOBALAMIN) (56751) [facility]; [facility] Work Phone: Start: 01-24-2022 25 hydroxy includes fractions if performed CALCIFIDIOL (65908) VIT D 25 [facility]; [facility] Work Phone: Start: 01-24-2022 Assay of thyroid stimulating hormone tsh TSH (79513) [facility]; [facility] Work Phone: Start: 01-24-2022 Urnls dip stick/tablet reagent auto microscopy URINALYSIS, W/ MICRO (50980) [facility]; [facility] Work Phone: Start: 01-24-2022 Urine albumin quantitative MICROALBUMIN: CREATININE RATIO (15269) AND (42459) [facility]; [facility] Work Phone: Start: 01-24-2022 Comprehensive metabolic panel METABOLIC PANEL, COMPREHENSIVE (75692) [facility]; [facility] Work Phone: Start: 01-24-2022 Lipid panel LIPID PANEL (98833) [facility]; [facility] Work Phone: Start: 01-24-2022 Blood count complete auto&auto difrntl wbc CBC W/AUTO DIFF WBC (71745) [facility]; [facility] Work Phone: Start: 10-24-2021 Procedure Education Eprescribed prescriptions (G8553) [facility]; [facility] Work Phone: Start: 10-24-2021 Provider Instructions for Treatment Follow up in 3 months with [facility]; [facility] Work Phone: Start: 10-24-2021 Blood occult fecal hgb deter ia qual feces 1-3 FECAL OCCULT- Tubes sent home (56368) [facility]; [facility] Work Phone: Start: 06-28-2021 Comprehensive metabolic panel Metabolic Panel, Comprehensive (43200) [facility]; [facility] Work [...] feces 1-3 FECAL OCCULT- Tubes sent home (91566) [facility]; [facility] Work Phone: Start: 04-19-2021 Cyanocobalamin vitamin b-12 VITAMIN B12 AND FOLATES (91970) [facility]; [facility] Work Phone: Start: 04-19-2021 Urine albumin quantitative MICROALBUMIN: CREATININE RATIO (45170) AND (91160) [facility]; [facility] Work Phone: Start: 04-19-2021 Comprehensive metabolic panel Metabolic Panel, Comprehensive (43911) [facility]; [facility] Work Phone: Start: 01-17-2021 Procedure Education Eprescribed prescriptions (G8553) [facility]; [facility] Work Phone: Start: 01-17-2021 Provider Instructions for Treatment [facility]; [facility] Work Phone: Start: 01-04-2021 Renal function panel RENAL FUNCTION PANEL (38449) [facility]; [facility] Work Phone: Payers Date Payer Category Payer Medicare [id number] 2021 Unknown [id number] 2018 Medicare 2017 Unknown [id number] 2014 Medicare [id number] 2014 Unknown [id number] 1950 Unknown [id number] Medicare [id number] Unknown Social History Date Type Detail Facility [...] Informa tion Online using Patient Portal and [employer] Apps Indication:HTN (hypertension), benign Start:09-Dec-2020 Instruction [...] tion Online using Patient Portal and 3rd [employer] Apps Indication:HTN (hypertension), benign Start:09-Dec-2020 Instruction [...] tion Online using Patient Portal and 3rd [employer] Apps Indication:JESUS (obstructive sleep apnea) Start:16-Dec-2020 Instruction Type:Patient Education Patient Instructions Indication:Non-smoker Start:09-Dec-2020 Instruction Type:Provider Instructions for Treatment How to Access Health Informa tion Online using Patient Portal and 3rd [employer] Apps Indication:HTN (hypertension), benign Start:09-Dec-2020 Instruction [...] tion Online using Patient Portal and 3rd [employer] Apps Indication:JESUS (obstructive sleep apnea) Start:16-Dec-2020 Instruction Type:Patient Education Patient Instructions Indication:Non-smoker Start:09-Dec-2020 Instruction Type:Provider Instructions for Treatment How to Access Health Informa tion Online using Patient Portal and [employer] management Apps Indication:HTN (hypertension), benign Start:09-Dec-2020 Instruction Type:Patient [...] Informa tion Online using Patient Portal and [employer] management Apps Indication:JESUS (obstructive sleep apnea) Start:16-Dec-2020 Instruction Type:Patient Education Patient Instructions Indication:Non-smoker Start:09-Dec-2020 Instruction Type:Provider Instructions for Treatment How to Access Health Informa tion Online using Patient Portal and [employer] management Apps Indication:HTN (hypertension), benign Start:09-Dec-2020 Instruction Type:Patient [...] Informa tion Online using Patient Portal and [employer] Apps Indication:JESUS (obstructive sleep apnea) Start:16-Dec-2020 Instruction Type:Patient Education Patient Instructions Indication:Non-smoker Start:09-Dec-2020 Instruction Type:Provider Instructions for Treatment How to Access Health Informa tion Online using Patient Portal and 3rd [employer] Apps Indication:HTN (hypertension), benign Start:09-Dec-2020 Instruction [...] tion Online using Patient Portal and [employer]rd [employer] Apps Indication:Non-smoker Start:17-Jan-2021 Instruction Type:Patient Education Patient Instructions Indication:CKD stage G3b/A1, GFR 30-44 and albumin creatinine ratio <30 mg/g Start:16-Dec-2020 Instruction Type:Provider Instructions for Treatment How to Access Health Informa tion Online using Patient Portal and 3rd [employer] Apps Indication:JESUS (obstructive sleep apnea) Start:16-Dec-2020 Instruction Type:Patient Education Patient Instructions Indication:Non-smoker Start:09-Dec-2020 Instruction Type:Provider Instructions for Treatment How to Access Health Informa tion Online using Patient Portal and 3rd [employer] Apps Indication:HTN (hypertension), benign Start:09-Dec-2020 Instruction [...] Informa tion Online using Patient Portal and [employer] management Apps Indication:Non-smoker Start:17-Jan-2021 Instruction Type:Patient Education Patient Instructions Indication:CKD stage G3b/A1, GFR 30-44 and albumin creatinine ratio <30 mg/g Start:16-Dec-2020 Instruction Type:Provider Instructions for Treatment How to Access Health Informa tion Online using Patient Portal and [employer] Apps Indication:JESUS (obstructive sleep apnea) Start:16-Dec-2020 Instruction Type:Patient Education Patient Instructions Indication:Non-smoker Start:09-Dec-2020 Instruction Type:Provider Instructions for Treatment How to Access Health Informa tion Online using Patient Portal and [employer] management Apps Indication:HTN (hypertension), benign Start:09-Dec-2020 Instruction Type:Patient [...] tion Online using Patient Portal and [employer] Apps Indication:BMI 39.0-39.9,adult Start:30-May-2021 Instruction Type:Patient Education Patient Instructions Indication:Encounter for screening for malignant neoplasm of colon (Renamed from Special screening for malignant neoplasms, colon) Start:25-Apr-2021 Instruction Type:Provider Instructions for Treatment How to Access Health Informa tion Online using Patient Portal and [employer] Apps Indication:Non-smoker Start:25-Apr-2021 Instruction Type:Patient Education Patient Instructions Indication:Non-smoker Start:17-Jan-2021 Instruction Type:Provider Instructions for Treatment How to Access Health Informa tion Online using Patient Portal and [employer] Apps Indication:Non-smoker Start:17-Jan-2021 Instruction Type:Patient Education Patient Instructions Indication:CKD stage G3b/A1, GFR 30-44 and albumin creatinine ratio <30 mg/g Start:16-Dec-2020 Instruction Type:Provider Instructions for Treatment How to Access Health Informa tion Online using Patient Portal and [employer] Apps Indication:JESUS (obstructive sleep apnea) Start:16-Dec-2020 Instruction Type:Patient Education Patient Instructions Indication:Non-smoker Start:09-Dec-2020 Instruction Type:Provider Instructions for Treatment How to Access Health Informa tion Online using Patient Portal and [employer] Apps Indication:HTN (hypertension), benign Start:09-Dec-2020 Instruction [...] tion Online using Patient Portal and [employer] Apps Indication:BMI 39.0-39.9,adult Start:30-May-2021 Instruction Type:Patient Education Patient Instructions Indication:Encounter for screening for malignant neoplasm of colon (Renamed from Special screening for malignant neoplasms, colon) Start:25-Apr-2021 Instruction Type:Provider Instructions for Treatment How to Access Health Informa tion Online using Patient Portal and [employer] Apps Indication:Non-smoker Start:25-Apr-2021 Instruction Type:Patient Education Patient Instructions Indication:Non-smoker Start:17-Jan-2021 Instruction Type:Provider Instructions for Treatment How to Access Health Informa tion Online using Patient Portal and [employer] Apps Indication:Non-smoker Start:17-Jan-2021 Instruction Type:Patient Education Patient Instructions Indication:CKD stage G3b/A1, GFR 30-44 and albumin creatinine ratio <30 mg/g Start:16-Dec-2020 Instruction Type:Provider Instructions for Treatment How to Access Health Informa tion Online using Patient Portal and [employer] Apps Indication:JESUS (obstructive sleep apnea) Start:16-Dec-2020 Instruction Type:Patient Education Patient Instructions Indication:Non-smoker Start:09-Dec-2020 Instruction Type:Provider Instructions for Treatment How to Access Health Informa tion Online using Patient Portal and [employer] Apps Indication:HTN (hypertension), benign Start:09-Dec-2020 Instruction [...] tion Online using Patient Portal and [employer] Apps Indication:BMI 39.0-39.9,adult Start:24-Oct-2021 Instruction Type:Patient Education Patient Instructions Indication:BMI 39.0-39.9,adult Start:30-May-2021 Instruction Type:Provider Instructions for Treatment How to Access Health Informa tion Online using Patient Portal and [employer] Apps Indication:BMI 39.0-39.9,adult Start:30-May-2021 Instruction Type:Patient Education Patient Instructions Indication:Encounter for screening for malignant neoplasm of colon (Renamed from Special screening for malignant neoplasms, colon) Start:25-Apr-2021 Instruction Type:Provider Instructions for Treatment How to Access Health Informa tion Online using Patient Portal and [employer] Apps Indication:Non-smoker Start:25-Apr-2021 Instruction Type:Patient Education Patient Instructions Indication:Non-smoker Start:17-Jan-2021 Instruction Type:Provider Instructions for Treatment How to Access Health Informa tion Online using Patient Portal and [employer] Apps Indication:Non-smoker Start:17-Jan-2021 Instruction Type:Patient Education Patient Instructions Indication:CKD stage G3b/A1, GFR 30-44 and albumin creatinine ratio <30 mg/g Start:16-Dec-2020 Instruction Type:Provider Instructions for Treatment How to Access Health Informa tion Online using Patient Portal and [employer] Apps Indication:JESUS (obstructive sleep apnea) Start:16-Dec-2020 Instruction Type:Patient Education Patient Instructions Indication:Non-smoker Start:09-Dec-2020 Instruction Type:Provider Instructions for Treatment How to Access Health Informa tion Online using Patient Portal and [employer] Apps Indication:HTN (hypertension), benign Start:09-Dec-2020 Instruction [...] tion Online using Patient Portal and [employer] Apps Indication:Impaired fasting glucose Start:24-Jan-2022 Instruction Type:Patient Education Patient Instructions Indication:BMI 39.0-39.9,adult Start:24-Oct-2021 Instruction Type:Provider Instructions for Treatment How to Access Health Informa tion Online using Patient Portal and [employer] Apps Indication:BMI 39.0-39.9,adult Start:24-Oct-2021 Instruction Type:Patient Education Patient Instructions Indication:BMI 39.0-39.9,adult Start:30-May-2021 Instruction Type:Provider Instructions for Treatment How to Access Health Informa tion Online using Patient Portal and [employer] Apps Indication:BMI 39.0-39.9,adult Start:30-May-2021 Instruction Type:Patient Education Patient Instructions Indication:Encounter for screening for malignant neoplasm of colon (Renamed from Special screening for malignant neoplasms, colon) Start:25-Apr-2021 Instruction Type:Provider Instructions for Treatment How to Access Health Informa tion Online using Patient Portal and [employer] Apps Indication:Non-smoker Start:25-Apr-2021 Instruction Type:Patient Education Patient Instructions Indication:Non-smoker Start:17-Jan-2021 Instruction Type:Provider Instructions for Treatment How to Access Health Informa tion Online using Patient Portal and [employer] Apps Indication:Non-smoker Start:17-Jan-2021 Instruction Type:Patient Education Patient Instructions Indication:CKD stage G3b/A1, GFR 30-44 and albumin creatinine ratio <30 mg/g Start:16-Dec-2020 Instruction Type:Provider Instructions for Treatment How to Access Health Informa tion Online using Patient Portal and [employer] Apps Indication:JESUS (obstructive sleep apnea) Start:16-Dec-2020 Instruction Type:Patient Education Patient Instructions Indication:Non-smoker Start:09-Dec-2020 Instruction Type:Provider Instructions for Treatment How to Access Health Informa tion Online using Patient Portal and [employer] Apps Indication:HTN (hypertension), benign Start:09-Dec-2020 Instruction [...] tion Online using Patient Portal and [employer] Apps Indication:Impaired fasting glucose Start:24-Jan-2022 Instruction Type:Patient Education Patient Instructions Indication:BMI 39.0-39.9,adult Start:24-Oct-2021 Instruction Type:Provider Instructions for Treatment How to Access Health Informa tion Online using Patient Portal and [employer] Apps Indication:BMI 39.0-39.9,adult Start:24-Oct-2021 Instruction Type:Patient Education Patient Instructions Indication:BMI 39.0-39.9,adult Start:30-May-2021 Instruction Type:Provider Instructions for Treatment How to Access Health Informa tion Online using Patient Portal and [employer] Apps Indication:BMI 39.0-39.9,adult Start:30-May-2021 Instruction Type:Patient Education Patient Instructions Indication:Encounter for screening for malignant neoplasm of colon (Renamed from Special screening for malignant neoplasms, colon) Start:25-Apr-2021 Instruction Type:Provider Instructions for Treatment How to Access Health Informa tion Online using Patient Portal and [employer] Apps Indication:Non-smoker Start:25-Apr-2021 Instruction Type:Patient Education Patient Instructions Indication:Non-smoker Start:17-Jan-2021 Instruction Type:Provider Instructions for Treatment How to Access Health Informa tion Online using Patient Portal and [employer] Apps Indication:Non-smoker Start:17-Jan-2021 Instruction Type:Patient Education Patient Instructions Indication:CKD stage G3b/A1, GFR 30-44 and albumin creatinine ratio <30 mg/g Start:16-Dec-2020 Instruction Type:Provider Instructions for Treatment How to Access Health Informa tion Online using Patient Portal and [employer] Apps Indication:JESUS (obstructive sleep apnea) Start:16-Dec-2020 Instruction Type:Patient Education Patient Instructions Indication:Non-smoker Start:09-Dec-2020 Instruction Type:Provider Instructions for Treatment How to Access Health Informa tion Online using Patient Portal and [employer] Apps Indication:HTN (hypertension), benign Start:09-Dec-2020 Instruction [...] tion Online using Patient Portal and [employer] Apps Indication:Non-smoker Start:05-Feb-2022 Instruction Type:Patient Education Patient Instructions Indication:Impaired fasting glucose Start:24-Jan-2022 Instruction Type:Provider Instructions for Treatment How to Access Health Informa tion Online using Patient Portal and [employer] Apps Indication:Impaired fasting glucose Start:24-Jan-2022 Instruction Type:Patient Education Patient Instructions Indication:BMI 39.0-39.9,adult Start:24-Oct-2021 Instruction Type:Provider Instructions for Treatment How to Access Health Informa tion Online using Patient Portal and [employer] Apps Indication:BMI 39.0-39.9,adult Start:24-Oct-2021 Instruction Type:Patient Education Patient Instructions Indication:BMI 39.0-39.9,adult Start:30-May-2021 Instruction Type:Provider Instructions for Treatment How to Access Health Informa tion Online using Patient Portal and [employer] Apps Indication:BMI 39.0-39.9,adult Start:30-May-2021 Instruction Type:Patient Education Patient Instructions Indication:Encounter for screening for malignant neoplasm of colon (Renamed from Special screening for malignant neoplasms, colon) Start:25-Apr-2021 Instruction Type:Provider Instructions for Treatment How to Access Health Informa tion Online using Patient Portal and [employer] Apps Indication:Non-smoker Start:25-Apr-2021 Instruction Type:Patient Education Patient Instructions Indication:Non-smoker Start:17-Jan-2021 Instruction Type:Provider Instructions for Treatment How to Access Health Informa tion Online using Patient Portal and [employer] Apps Indication:Non-smoker Start:17-Jan-2021 Instruction Type:Patient Education Patient Instructions Indication:CKD stage G3b/A1, GFR 30-44 and albumin creatinine ratio <30 mg/g Start:16-Dec-2020 Instruction Type:Provider Instructions for Treatment How to Access Health Informa tion Online using Patient Portal and [employer] Apps Indication:JESUS (obstructive sleep apnea) Start:16-Dec-2020 Instruction Type:Patient Education Patient Instructions Indication:Non-smoker Start:09-Dec-2020 Instruction Type:Provider Instructions for Treatment How to Access Health Informa tion Online using Patient Portal and [employer] Apps Indication:HTN (hypertension), benign Start:09-Dec-2020 Instruction [...] tion Online using Patient Portal and [employer] Apps Indication:Non-smoker Start:22-Feb-2022 Instruction Type:Patient Education Patient Instructions Indication:Non-smoker Start:05-Feb-2022 Instruction Type:Provider Instructions for Treatment How to Access Health Informa tion Online using Patient Portal and [employer] Apps Indication:Non-smoker Start:05-Feb-2022 Instruction Type:Patient Education Patient Instructions Indication:Impaired fasting glucose Start:24-Jan-2022 Instruction Type:Provider Instructions for Treatment How to Access Health Informa tion Online using Patient Portal and [employer] Apps Indication:Impaired fasting glucose Start:24-Jan-2022 Instruction Type:Patient Education Patient Instructions Indication:BMI 39.0-39.9,adult Start:24-Oct-2021 Instruction Type:Provider Instructions for Treatment How to Access Health Informa tion Online using Patient Portal and [employer] Apps Indication:BMI 39.0-39.9,adult Start:24-Oct-2021 Instruction Type:Patient Education Patient Instructions Indication:BMI 39.0-39.9,adult Start:30-May-2021 Instruction Type:Provider Instructions for Treatment How to Access Health Informa tion Online using Patient Portal and [employer] Apps Indication:BMI 39.0-39.9,adult Start:30-May-2021 Instruction Type:Patient Education Patient Instructions Indication:Encounter for screening for malignant neoplasm of colon (Renamed from Special screening for malignant neoplasms, colon) Start:25-Apr-2021 Instruction Type:Provider Instructions for Treatment How to Access Health Informa tion Online using Patient Portal and [employer] Apps Indication:Non-smoker Start:25-Apr-2021 Instruction Type:Patient Education Patient Instructions Indication:Non-smoker Start:17-Jan-2021 Instruction Type:Provider Instructions for Treatment How to Access Health Informa tion Online using Patient Portal and [employer] Apps Indication:Non-smoker Start:17-Jan-2021 Instruction Type:Patient Education Patient Instructions Indication:CKD stage G3b/A1, GFR 30-44 and albumin creatinine ratio <30 mg/g Start:16-Dec-2020 Instruction Type:Provider Instructions for Treatment How to Access Health Informa tion Online using Patient Portal and [employer] Apps Indication:JESUS (obstructive sleep apnea) Start:16-Dec-2020 Instruction Type:Patient Education Patient Instructions Indication:Non-smoker Start:09-Dec-2020 Instruction Type:Provider Instructions for Treatment How to Access Health Informa tion Online using Patient Portal and [employer] Apps Indication:HTN (hypertension), benign Start:09-Dec-2020 Instruction [...] tion Online using Patient Portal and [employer] Apps Indication:Morbid obesity Start:08-Mar-2022 Instruction Type:Patient Education Patient Instructions Indication:Non-smoker Start:22-Feb-2022 Instruction Type:Provider Instructions for Treatment How to Access Health Informa tion Online using Patient Portal and [employer] Apps Indication:Non-smoker Start:22-Feb-2022 Instruction Type:Patient Education Patient Instructions Indication:Non-smoker Start:05-Feb-2022 Instruction Type:Provider Instructions for Treatment How to Access Health Informa tion Online using Patient Portal and [employer] Apps Indication:Non-smoker Start:05-Feb-2022 Instruction Type:Patient Education Patient Instructions Indication:Impaired fasting glucose Start:24-Jan-2022 Instruction Type:Provider Instructions for Treatment How to Access Health Informa tion Online using Patient Portal and [employer] Apps Indication:Impaired fasting glucose Start:24-Jan-2022 Instruction Type:Patient Education Patient Instructions Indication:BMI 39.0-39.9,adult Start:24-Oct-2021 Instruction Type:Provider Instructions for Treatment How to Access Health Informa tion Online using Patient Portal and [employer] Apps Indication:BMI 39.0-39.9,adult Start:24-Oct-2021 Instruction Type:Patient Education Patient Instructions Indication:BMI 39.0-39.9,adult Start:30-May-2021 Instruction Type:Provider Instructions for Treatment How to Access Health Informa tion Online using Patient Portal and [employer] Apps Indication:BMI 39.0-39.9,adult Start:30-May-2021 Instruction Type:Patient Education Patient Instructions Indication:Encounter for screening for malignant neoplasm of colon (Renamed from Special screening for malignant neoplasms, colon) Start:25-Apr-2021 Instruction Type:Provider Instructions for Treatment How to Access Health Informa tion Online using Patient Portal and [employer] Apps Indication:Non-smoker Start:25-Apr-2021 Instruction Type:Patient Education Patient Instructions Indication:Non-smoker Start:17-Jan-2021 Instruction Type:Provider Instructions for Treatment How to Access Health Informa tion Online using Patient Portal and [employer] Apps Indication:Non-smoker Start:17-Jan-2021 Instruction Type:Patient Education Patient Instructions Indication:CKD stage G3b/A1, GFR 30-44 and albumin creatinine ratio <30 mg/g Start:16-Dec-2020 Instruction Type:Provider Instructions for Treatment How to Access Health Informa tion Online using Patient Portal and [employer] management Apps Indication:JESUS (obstructive sleep apnea) Start:16-Dec-2020 Instruction Type:Patient Education Patient Instructions Indication:Non-smoker Start:09-Dec-2020 Instruction Type:Provider Instructions for Treatment How to Access Health Informa tion Online using Patient Portal and [employer] Apps Indication:HTN (hypertension), benign Start:09-Dec-2020 Instruction [...] tion Online using Patient Portal and [employer] Apps Indication:Non-smoker Start:15-Mar-2022 Instruction Type:Patient Education Patient Instructions Indication:Morbid obesity Start:08-Mar-2022 Instruction Type:Provider Instructions for Treatment How to Access Health Informa tion Online using Patient Portal and [employer] Apps Indication:Morbid obesity Start:08-Mar-2022 Instruction Type:Patient Education Patient Instructions Indication:Non-smoker Start:22-Feb-2022 Instruction Type:Provider Instructions for Treatment How to Access Health Informa tion Online using Patient Portal and [employer] Apps Indication:Non-smoker Start:22-Feb-2022 Instruction Type:Patient Education Patient Instructions Indication:Non-smoker Start:05-Feb-2022 Instruction Type:Provider Instructions for Treatment How to Access Health Informa tion Online using Patient Portal and [employer] Apps Indication:Non-smoker Start:05-Feb-2022 Instruction Type:Patient Education Patient Instructions Indication:Impaired fasting glucose Start:24-Jan-2022 Instruction Type:Provider Instructions for Treatment How to Access Health Informa tion Online using Patient Portal and [employer] Apps Indication:Impaired fasting glucose Start:24-Jan-2022 Instruction Type:Patient Education Patient Instructions Indication:BMI 39.0-39.9,adult Start:24-Oct-2021 Instruction Type:Provider Instructions for Treatment How to Access Health Informa tion Online using Patient Portal and [employer] Apps Indication:BMI 39.0-39.9,adult Start:24-Oct-2021 Instruction Type:Patient Education Patient Instructions Indication:BMI 39.0-39.9,adult Start:30-May-2021 Instruction Type:Provider Instructions for Treatment How to Access Health Informa tion Online using Patient Portal and [employer] Apps Indication:BMI 39.0-39.9,adult Start:30-May-2021 Instruction Type:Patient Education Patient Instructions Indication:Encounter for screening for malignant neoplasm of colon (Renamed from Special screening for malignant neoplasms, colon) Start:25-Apr-2021 Instruction Type:Provider Instructions for Treatment How to Access Health Informa tion Online using Patient Portal and [employer] Apps Indication:Non-smoker Start:25-Apr-2021 Instruction Type:Patient Education Patient Instructions Indication:Non-smoker Start:17-Jan-2021 Instruction Type:Provider Instructions for Treatment How to Access Health Informa tion Online using Patient Portal and [employer] Apps Indication:Non-smoker Start:17-Jan-2021 Instruction Type:Patient Education Patient Instructions Indication:CKD stage G3b/A1, GFR 30-44 and albumin creatinine ratio <30 mg/g Start:16-Dec-2020 Instruction Type:Provider Instructions for Treatment How to Access Health Informa tion Online using Patient Portal and [employer] Apps Indication:JESUS (obstructive sleep apnea) Start:16-Dec-2020 Instruction Type:Patient Education Patient Instructions Indication:Non-smoker Start:09-Dec-2020 Instruction Type:Provider Instructions for Treatment How to Access Health Informa tion Online using Patient Portal and [employer] Apps Indication:HTN (hypertension), benign Start:09-Dec-2020 Instruction [...] tion Online using Patient Portal and [employer] Apps Indication:Non-smoker Start:15-Mar-2022 Instruction Type:Patient Education Patient Instructions Indication:Morbid obesity Start:08-Mar-2022 Instruction Type:Provider Instructions for Treatment How to Access Health Informa tion Online using Patient Portal and [employer] Apps Indication:Morbid obesity Start:08-Mar-2022 Instruction Type:Patient Education Patient Instructions Indication:Non-smoker Start:22-Feb-2022 Instruction Type:Provider Instructions for Treatment How to Access Health Informa tion Online using Patient Portal and [employer] Apps Indication:Non-smoker Start:22-Feb-2022 Instruction Type:Patient Education Patient Instructions Indication:Non-smoker Start:05-Feb-2022 Instruction Type:Provider Instructions for Treatment How to Access Health Informa tion Online using Patient Portal and [employer] Apps Indication:Non-smoker Start:05-Feb-2022 Instruction Type:Patient Education Patient Instructions Indication:Impaired fasting glucose Start:24-Jan-2022 Instruction Type:Provider Instructions for Treatment How to Access Health Informa tion Online using Patient Portal and [employer] Apps Indication:Impaired fasting glucose Start:24-Jan-2022 Instruction Type:Patient Education Patient Instructions Indication:BMI 39.0-39.9,adult Start:24-Oct-2021 Instruction Type:Provider Instructions for Treatment How to Access Health Informa tion Online using Patient Portal and [employer] Apps Indication:BMI 39.0-39.9,adult Start:24-Oct-2021 Instruction Type:Patient Education Patient Instructions Indication:BMI 39.0-39.9,adult Start:30-May-2021 Instruction Type:Provider Instructions for Treatment How to Access Health Informa tion Online using Patient Portal and [employer] Apps Indication:BMI 39.0-39.9,adult Start:30-May-2021 Instruction Type:Patient Education Patient Instructions Indication:Encounter for screening for malignant neoplasm of colon (Renamed from Special screening for malignant neoplasms, colon) Start:25-Apr-2021 Instruction Type:Provider Instructions for Treatment How to Access Health Informa tion Online using Patient Portal and [employer] Apps Indication:Non-smoker Start:25-Apr-2021 Instruction Type:Patient Education Patient Instructions Indication:Non-smoker Start:17-Jan-2021 Instruction Type:Provider Instructions for Treatment How to Access Health Informa tion Online using Patient Portal and [employer] Apps Indication:Non-smoker Start:17-Jan-2021 Instruction Type:Patient Education Patient Instructions Indication:CKD stage G3b/A1, GFR 30-44 and albumin creatinine ratio <30 mg/g Start:16-Dec-2020 Instruction Type:Provider Instructions for Treatment How to Access Health Informa tion Online using Patient Portal and [employer] Apps Indication:JESUS (obstructive sleep apnea) Start:16-Dec-2020 Instruction Type:Patient Education Patient Instructions Indication:Non-smoker Start:09-Dec-2020 Instruction Type:Provider Instructions for Treatment How to Access Health Informa tion Online using Patient Portal and [employer] Apps Indication:HTN (hypertension), benign Start:09-Dec-2020 Instruction [...] tion Online using Patient Portal and [employer] Apps Indication:BMI 40.0-44.9, adult Start:25-Oct-2022 Instruction Type:Patient Education Patient Instructions Indication:Non-smoker Start:15-Mar-2022 Instruction Type:Provider Instructions for Treatment How to Access Health Informa tion Online using Patient Portal and [employer] Apps Indication:Non-smoker Start:15-Mar-2022 Instruction Type:Patient Education Patient Instructions Indication:Morbid obesity Start:08-Mar-2022 Instruction Type:Provider Instructions for Treatment How to Access Health Informa tion Online using Patient Portal and [employer] Apps Indication:Morbid obesity Start:08-Mar-2022 Instruction Type:Patient Education Patient Instructions Indication:Non-smoker Start:22-Feb-2022 Instruction Type:Provider Instructions for Treatment How to Access Health Informa tion Online using Patient Portal and [employer] Apps Indication:Non-smoker Start:22-Feb-2022 Instruction Type:Patient Education Patient Instructions Indication:Non-smoker Start:05-Feb-2022 Instruction Type:Provider Instructions for Treatment How to Access Health Informa tion Online using Patient Portal and [employer] Apps Indication:Non-smoker Start:05-Feb-2022 Instruction Type:Patient Education Patient Instructions Indication:Impaired fasting glucose Start:24-Jan-2022 Instruction Type:Provider Instructions for Treatment How to Access Health Informa tion Online using Patient Portal and [employer] Apps Indication:Impaired fasting glucose Start:24-Jan-2022 Instruction Type:Patient Education Patient Instructions Indication:BMI 39.0-39.9,adult Start:24-Oct-2021 Instruction Type:Provider Instructions for Treatment How to Access Health Informa tion Online using Patient Portal and [employer] Apps Indication:BMI 39.0-39.9,adult Start:24-Oct-2021 Instruction Type:Patient Education Patient Instructions Indication:BMI 39.0-39.9,adult Start:30-May-2021 Instruction Type:Provider Instructions for Treatment How to Access Health Informa tion Online using Patient Portal and [employer] Apps Indication:BMI 39.0-39.9,adult Start:30-May-2021 Instruction Type:Patient Education Patient Instructions Indication:Encounter for screening for malignant neoplasm of colon (Renamed from Special screening for malignant neoplasms, colon) Start:25-Apr-2021 Instruction Type:Provider Instructions for Treatment How to Access Health Informa tion Online using Patient Portal and [employer] Apps Indication:Non-smoker Start:25-Apr-2021 Instruction Type:Patient Education Patient Instructions Indication:Non-smoker Start:17-Jan-2021 Instruction Type:Provider Instructions for Treatment How to Access Health Informa tion Online using Patient Portal and [employer] Apps Indication:Non-smoker Start:17-Jan-2021 Instruction Type:Patient Education Patient Instructions Indication:CKD stage G3b/A1, GFR 30-44 and albumin creatinine ratio <30 mg/g Start:16-Dec-2020 Instruction Type:Provider Instructions for Treatment How to Access Health Informa tion Online using Patient Portal and [employer] Apps Indication:JESUS (obstructive sleep apnea) Start:16-Dec-2020 Instruction Type:Patient Education Patient Instructions Indication:Non-smoker Start:09-Dec-2020 Instruction Type:Provider Instructions for Treatment How to Access Health Informa tion Online using Patient Portal and [employer] Apps Indication:HTN (hypertension), benign Start:09-Dec-2020 Instruction [...] tion Online using Patient Portal and [employer] Apps Indication:BMI 40.0-44.9, adult Start:25-Oct-2022 Instruction Type:Patient Education Patient Instructions Indication:Non-smoker Start:15-Mar-2022 Instruction Type:Provider Instructions for Treatment How to Access Health Informa tion Online using Patient Portal and [employer] Apps Indication:Non-smoker Start:15-Mar-2022 Instruction Type:Patient Education Patient Instructions Indication:Morbid obesity Start:08-Mar-2022 Instruction Type:Provider Instructions for Treatment How to Access Health Informa tion Online using Patient Portal and [employer] Apps Indication:Morbid obesity Start:08-Mar-2022 Instruction Type:Patient Education Patient Instructions Indication:Non-smoker Start:22-Feb-2022 Instruction Type:Provider Instructions for Treatment How to Access Health Informa tion Online using Patient Portal and [employer] Apps Indication:Non-smoker Start:22-Feb-2022 Instruction Type:Patient Education Patient Instructions Indication:Non-smoker Start:05-Feb-2022 Instruction Type:Provider Instructions for Treatment How to Access Health Informa tion Online using Patient Portal and [employer] Apps Indication:Non-smoker Start:05-Feb-2022 Instruction Type:Patient Education Patient Instructions Indication:Impaired fasting glucose Start:24-Jan-2022 Instruction Type:Provider Instructions for Treatment How to Access Health Informa tion Online using Patient Portal and [employer] Apps Indication:Impaired fasting glucose Start:24-Jan-2022 Instruction Type:Patient Education Patient Instructions Indication:BMI 39.0-39.9,adult Start:24-Oct-2021 Instruction Type:Provider Instructions for Treatment How to Access Health Informa tion Online using Patient Portal and [employer] Apps Indication:BMI 39.0-39.9,adult Start:24-Oct-2021 Instruction Type:Patient Education Patient Instructions Indication:BMI 39.0-39.9,adult Start:30-May-2021 Instruction Type:Provider Instructions for Treatment How to Access Health Informa tion Online using Patient Portal and [employer] Apps Indication:BMI 39.0-39.9,adult Start:30-May-2021 Instruction Type:Patient Education Patient Instructions Indication:Encounter for screening for malignant neoplasm of colon (Renamed from Special screening for malignant neoplasms, colon) Start:25-Apr-2021 Instruction Type:Provider Instructions for Treatment How to Access Health Informa tion Online using Patient Portal and [employer] Apps Indication:Non-smoker Start:25-Apr-2021 Instruction Type:Patient Education Patient Instructions Indication:Non-smoker Start:17-Jan-2021 Instruction Type:Provider Instructions for Treatment How to Access Health Informa tion Online using Patient Portal and [employer] Apps Indication:Non-smoker Start:17-Jan-2021 Instruction Type:Patient Education Patient Instructions Indication:CKD stage G3b/A1, GFR 30-44 and albumin creatinine ratio <30 mg/g Start:16-Dec-2020 Instruction Type:Provider Instructions for Treatment How to Access Health Informa tion Online using Patient Portal and [employer] Apps Indication:JESUS (obstructive sleep apnea) Start:16-Dec-2020 Instruction Type:Patient Education Patient Instructions Indication:Non-smoker Start:09-Dec-2020 Instruction Type:Provider Instructions for Treatment How to Access Health Informa tion Online using Patient Portal and [employer] Apps Indication:HTN (hypertension), benign Start:09-Dec-2020 Instruction [...] tion Online using Patient Portal and [employer] Apps Indication:BMI 40.0-44.9, adult Start:25-Oct-2022 Instruction Type:Patient Education Patient Instructions Indication:Non-smoker Start:15-Mar-2022 Instruction Type:Provider Instructions for Treatment How to Access Health Informa tion Online using Patient Portal and [employer] Apps Indication:Non-smoker Start:15-Mar-2022 Instruction Type:Patient Education Patient Instructions Indication:Morbid obesity Start:08-Mar-2022 Instruction Type:Provider Instructions for Treatment How to Access Health Informa tion Online using Patient Portal and [employer] Apps Indication:Morbid obesity Start:08-Mar-2022 Instruction Type:Patient Education Patient Instructions Indication:Non-smoker Start:22-Feb-2022 Instruction Type:Provider Instructions for Treatment How to Access Health Informa tion Online using Patient Portal and [employer] Apps Indication:Non-smoker Start:22-Feb-2022 Instruction Type:Patient Education Patient Instructions Indication:Non-smoker Start:05-Feb-2022 Instruction Type:Provider Instructions for Treatment How to Access Health Informa tion Online using Patient Portal and [employer] Apps Indication:Non-smoker Start:05-Feb-2022 Instruction Type:Patient Education Patient Instructions Indication:Impaired fasting glucose Start:24-Jan-2022 Instruction Type:Provider Instructions for Treatment How to Access Health Informa tion Online using Patient Portal and [employer] Apps Indication:Impaired fasting glucose Start:24-Jan-2022 Instruction Type:Patient Education Patient Instructions Indication:BMI 39.0-39.9,adult Start:24-Oct-2021 Instruction Type:Provider Instructions for Treatment How to Access Health Informa tion Online using Patient Portal and [employer] Apps Indication:BMI 39.0-39.9,adult Start:24-Oct-2021 Instruction Type:Patient Education Patient Instructions Indication:BMI 39.0-39.9,adult Start:30-May-2021 Instruction Type:Provider Instructions for Treatment How to Access Health Informa tion Online using Patient Portal and [employer] Apps Indication:BMI 39.0-39.9,adult Start:30-May-2021 Instruction Type:Patient Education Patient Instructions Indication:Encounter for screening for malignant neoplasm of colon (Renamed from Special screening for malignant neoplasms, colon) Start:25-Apr-2021 Instruction Type:Provider Instructions for Treatment How to Access Health Informa tion Online using Patient Portal and [employer] Apps Indication:Non-smoker Start:25-Apr-2021 Instruction Type:Patient Education Patient Instructions Indication:Non-smoker Start:17-Jan-2021 Instruction Type:Provider Instructions for Treatment How to Access Health Informa tion Online using Patient Portal and [employer] Apps Indication:Non-smoker Start:17-Jan-2021 Instruction Type:Patient Education Patient Instructions Indication:CKD stage G3b/A1, GFR 30-44 and albumin creatinine ratio <30 mg/g Start:16-Dec-2020 Instruction Type:Provider Instructions for Treatment How to Access Health Informa tion Online using Patient Portal and [employer] Apps Indication:JESUS (obstructive sleep apnea) Start:16-Dec-2020 Instruction Type:Patient Education Patient Instructions Indication:Non-smoker Start:09-Dec-2020 Instruction Type:Provider Instructions for Treatment How to Access Health Informa tion Online using Patient Portal and [employer] Apps Indication:HTN (hypertension), benign Start:09-Dec-2020 Instruction [...] Informa tion Online using Patient Portal and [employer] Apps Indication:Non-smoker Start:25-Feb-2023 Instruction Type:Patient Education Patient Instructions Indication:BMI 40.0-44.9, adult Start:25-Oct-2022 Instruction Type:Provider Instructions for Treatment How to Access Health Informa tion Online using Patient Portal and [employer] Apps Indication:BMI 40.0-44.9, adult Start:25-Oct-2022 Instruction Type:Patient Education Patient Instructions Indication:Non-smoker Start:15-Mar-2022 Instruction Type:Provider Instructions for Treatment How to Access Health Informa tion Online using Patient Portal and [employer] Apps Indication:Non-smoker Start:15-Mar-2022 Instruction Type:Patient Education Patient Instructions Indication:Morbid obesity Start:08-Mar-2022 Instruction Type:Provider Instructions for Treatment How to Access Health Informa tion Online using Patient Portal and [employer] Apps Indication:Morbid obesity Start:08-Mar-2022 Instruction Type:Patient Education Patient Instructions Indication:Non-smoker Start:22-Feb-2022 Instruction Type:Provider Instructions for Treatment How to Access Health Informa tion Online using Patient Portal and [employer] Apps Indication:Non-smoker Start:22-Feb-2022 Instruction Type:Patient Education Patient Instructions Indication:Non-smoker Start:05-Feb-2022 Instruction Type:Provider Instructions for Treatment How to Access Health Informa tion Online using Patient Portal and [employer] Apps Indication:Non-smoker Start:05-Feb-2022 Instruction Type:Patient Education Patient Instructions Indication:Impaired fasting glucose Start:24-Jan-2022 Instruction Type:Provider Instructions for Treatment How to Access Health Informa tion Online using Patient Portal and [employer] Apps Indication:Impaired fasting glucose Start:24-Jan-2022 Instruction Type:Patient Education Patient Instructions Indication:BMI 39.0-39.9,adult Start:24-Oct-2021 Instruction Type:Provider Instructions for Treatment How to Access Health Informa tion Online using Patient Portal and [employer] Apps Indication:BMI 39.0-39.9,adult Start:24-Oct-2021 Instruction Type:Patient Education Patient Instructions Indication:BMI 39.0-39.9,adult Start:30-May-2021 Instruction Type:Provider Instructions for Treatment How to Access Health Informa tion Online using Patient Portal and [employer] Apps Indication:BMI 39.0-39.9,adult Start:30-May-2021 Instruction Type:Patient Education Patient Instructions Indication:Encounter for screening for malignant neoplasm of colon (Renamed from Special screening for malignant neoplasms, colon) Start:25-Apr-2021 Instruction Type:Provider Instructions for Treatment How to Access Health Informa tion Online using Patient Portal and [employer] Apps Indication:Non-smoker Start:25-Apr-2021 Instruction Type:Patient Education Patient Instructions Indication:Non-smoker Start:17-Jan-2021 Instruction Type:Provider Instructions for Treatment How to Access Health Informa tion Online using Patient Portal and [employer] Apps Indication:Non-smoker Start:17-Jan-2021 Instruction Type:Patient Education Patient Instructions Indication:CKD stage G3b/A1, GFR 30-44 and albumin creatinine ratio <30 mg/g Start:16-Dec-2020 Instruction Type:Provider Instructions for Treatment How to Access Health Informa tion Online using Patient Portal and [employer] Apps Indication:JESUS (obstructive sleep apnea) Start:16-Dec-2020 Instruction Type:Patient Education Patient Instructions Indication:Non-smoker Start:09-Dec-2020 Instruction Type:Provider Instructions for Treatment How to Access Health Informa tion Online using Patient Portal and [employer] Apps Indication:HTN (hypertension), benign Start:09-Dec-2020 Instruction [...] tion Online using Patient Portal and [employer] Apps Indication:Non-smoker Start:25-Mar-2023 Instruction Type:Patient Education Patient Instructions Indication:Non-smoker Start:25-Feb-2023 Instruction Type:Provider Instructions for Treatment How to Access Health Informa tion Online using Patient Portal and [employer] Apps Indication:Non-smoker Start:25-Feb-2023 Instruction Type:Patient Education Patient Instructions Indication:BMI 40.0-44.9, adult Start:25-Oct-2022 Instruction Type:Provider Instructions for Treatment How to Access Health Informa tion Online using Patient Portal and [employer] Apps Indication:BMI 40.0-44.9, adult Start:25-Oct-2022 Instruction Type:Patient Education Patient Instructions Indication:Non-smoker Start:15-Mar-2022 Instruction Type:Provider Instructions for Treatment How to Access Health Informa tion Online using Patient Portal and [employer] Apps Indication:Non-smoker Start:15-Mar-2022 Instruction Type:Patient Education Patient Instructions Indication:Morbid obesity Start:08-Mar-2022 Instruction Type:Provider Instructions for Treatment How to Access Health Informa tion Online using Patient Portal and [employer] Apps Indication:Morbid obesity Start:08-Mar-2022 Instruction Type:Patient Education Patient Instructions Indication:Non-smoker Start:22-Feb-2022 Instruction Type:Provider Instructions for Treatment How to Access Health Informa tion Online using Patient Portal and [employer] Apps Indication:Non-smoker Start:22-Feb-2022 Instruction Type:Patient Education Patient Instructions Indication:Non-smoker Start:05-Feb-2022 Instruction Type:Provider Instructions for Treatment How to Access Health Informa tion Online using Patient Portal and [employer] Apps Indication:Non-smoker Start:05-Feb-2022 Instruction Type:Patient Education Patient Instructions Indication:Impaired fasting glucose Start:24-Jan-2022 Instruction Type:Provider Instructions for Treatment How to Access Health Informa tion Online using Patient Portal and [employer] Apps Indication:Impaired fasting glucose Start:24-Jan-2022 Instruction Type:Patient Education Patient Instructions Indication:BMI 39.0-39.9,adult Start:24-Oct-2021 Instruction Type:Provider Instructions for Treatment How to Access Health Informa tion Online using Patient Portal and [employer] Apps Indication:BMI 39.0-39.9,adult Start:24-Oct-2021 Instruction Type:Patient Education Patient Instructions Indication:BMI 39.0-39.9,adult Start:30-May-2021 Instruction Type:Provider Instructions for Treatment How to Access Health Informa tion Online using Patient Portal and [employer] Apps Indication:BMI 39.0-39.9,adult Start:30-May-2021 Instruction Type:Patient Education Patient Instructions Indication:Encounter for screening for malignant neoplasm of colon (Renamed from Special screening for malignant neoplasms, colon) Start:25-Apr-2021 Instruction Type:Provider Instructions for Treatment How to Access Health Informa tion Online using Patient Portal and [employer] Apps Indication:Non-smoker Start:25-Apr-2021 Instruction Type:Patient Education Patient Instructions Indication:Non-smoker Start:17-Jan-2021 Instruction Type:Provider Instructions for Treatment How to Access Health Informa tion Online using Patient Portal and [employer] Apps Indication:Non-smoker Start:17-Jan-2021 Instruction Type:Patient Education Patient Instructions Indication:CKD stage G3b/A1, GFR 30-44 and albumin creatinine ratio <30 mg/g Start:16-Dec-2020 Instruction Type:Provider Instructions for Treatment How to Access Health Informa tion Online using Patient Portal and [employer] Apps Indication:JESUS (obstructive sleep apnea) Start:16-Dec-2020 Instruction Type:Patient Education Patient Instructions Indication:Non-smoker Start:09-Dec-2020 Instruction Type:Provider Instructions for Treatment How to Access Health Informa tion Online using Patient Portal and [employer] Apps Indication:HTN (hypertension), benign Start:09-Dec-2020 Instruction [...] Informa tion Online using Patient Portal and [employer] Apps Indication:Non-smoker Start:12-Apr-2023 Instruction Type:Patient Education Patient Instructions Indication:Non-smoker Start:12-Apr-2023 Instruction Type:Provider Instructions for Treatment Patient Instructions Indication:Non-smoker Start:25-Mar-2023 Instruction Type:Provider Instructions for Treatment How to Access Health Informa tion Online using Patient Portal and [employer] Apps Indication:Non-smoker Start:25-Mar-2023 Instruction Type:Patient Education Patient Instructions Indication:Non-smoker Start:25-Feb-2023 Instruction Type:Provider Instructions for Treatment How to Access Health Informa tion Online using Patient Portal and [employer] management Apps Indication:Non-smoker Start:25-Feb-2023 Instruction Type:Patient Education Patient Instructions Indication:BMI 40.0-44.9, adult Start:25-Oct-2022 Instruction Type:Provider Instructions for Treatment How to Access Health Informa tion Online using Patient Portal and [employer] management Apps Indication:BMI 40.0-44.9, adult Start:25-Oct-2022 Instruction Type:Patient Education Patient Instructions Indication:Non-smoker Start:15-Mar-2022 Instruction Type:Provider Instructions for Treatment How to Access Health Informa tion Online using Patient Portal and [employer] management Apps Indication:Non-smoker Start:15-Mar-2022 Instruction Type:Patient Education Patient Instructions Indication:Morbid obesity Start:08-Mar-2022 Instruction Type:Provider Instructions for Treatment How to Access Health Informa tion Online using Patient Portal and [employer] management Apps Indication:Morbid obesity Start:08-Mar-2022 Instruction Type:Patient Education Patient Instructions Indication:Non-smoker Start:22-Feb-2022 Instruction Type:Provider Instructions for Treatment How to Access Health Informa tion Online using Patient Portal and [employer] Apps Indication:Non-smoker Start:22-Feb-2022 Instruction Type:Patient Education Patient Instructions Indication:Non-smoker Start:05-Feb-2022 Instruction Type:Provider Instructions for Treatment How to Access Health Informa tion Online using Patient Portal and [employer] Apps Indication:Non-smoker Start:05-Feb-2022 Instruction Type:Patient Education Patient Instructions Indication:Impaired fasting glucose Start:24-Jan-2022 Instruction Type:Provider Instructions for Treatment How to Access Health Informa tion Online using Patient Portal and [employer] Apps Indication:Impaired fasting glucose Start:24-Jan-2022 Instruction Type:Patient Education Patient Instructions Indication:BMI 39.0-39.9,adult Start:24-Oct-2021 Instruction Type:Provider Instructions for Treatment How to Access Health Informa tion Online using Patient Portal and [employer] Apps Indication:BMI 39.0-39.9,adult Start:24-Oct-2021 Instruction Type:Patient Education Patient Instructions Indication:BMI 39.0-39.9,adult Start:30-May-2021 Instruction Type:Provider Instructions for Treatment How to Access Health Informa tion Online using Patient Portal and [employer] Apps Indication:BMI 39.0-39.9,adult Start:30-May-2021 Instruction Type:Patient Education Patient Instructions Indication:Encounter for screening for malignant neoplasm of colon (Renamed from Special screening for malignant neoplasms, colon) Start:25-Apr-2021 Instruction Type:Provider Instructions for Treatment How to Access Health Informa tion Online using Patient Portal and [employer] Apps Indication:Non-smoker Start:25-Apr-2021 Instruction Type:Patient Education Patient Instructions Indication:Non-smoker Start:17-Jan-2021 Instruction Type:Provider Instructions for Treatment How to Access Health Informa tion Online using Patient Portal and [employer] Apps Indication:Non-smoker Start:17-Jan-2021 Instruction Type:Patient Education Patient Instructions Indication:CKD stage G3b/A1, GFR 30-44 and albumin creatinine ratio <30 mg/g Start:16-Dec-2020 Instruction Type:Provider Instructions for Treatment How to Access Health Informa tion Online using Patient Portal and [employer] Apps Indication:JESUS (obstructive sleep apnea) Start:16-Dec-2020 Instruction Type:Patient Education Patient Instructions Indication:Non-smoker Start:09-Dec-2020 Instruction Type:Provider Instructions for Treatment How to Access Health Informa tion Online using Patient Portal and [employer] Apps Indication:HTN (hypertension), benign Start:09-Dec-2020 Instruction [...] tion Online using Patient Portal and [employer] Apps Indication:Non-smoker Start:29-Apr-2023 Instruction Type:Patient Education Patient Instructions Indication:Non-smoker Start:29-Apr-2023 Instruction Type:Provider Instructions for Treatment How to Access Health Informa tion Online using Patient Portal and [employer] Apps Indication:Non-smoker Start:12-Apr-2023 Instruction Type:Patient Education Patient Instructions Indication:Non-smoker Start:12-Apr-2023 Instruction Type:Provider Instructions for Treatment Patient Instructions Indication:Non-smoker Start:25-Mar-2023 Instruction Type:Provider Instructions for Treatment How to Access Health Informa tion Online using Patient Portal and [employer] Apps Indication:Non-smoker Start:25-Mar-2023 Instruction Type:Patient Education Patient Instructions Indication:Non-smoker Start:25-Feb-2023 Instruction Type:Provider Instructions for Treatment How to Access Health Informa tion Online using Patient Portal and [employer] Apps Indication:Non-smoker Start:25-Feb-2023 Instruction Type:Patient Education Patient Instructions Indication:BMI 40.0-44.9, adult Start:25-Oct-2022 Instruction Type:Provider Instructions for Treatment How to Access Health Informa tion Online using Patient Portal and [employer] [employer] Indication:BMI 40.0-44.9, adult Start:25-Oct-2022 Instruction Type:Patient Education Patient Instructions Indication:Non-smoker Start:15-Mar-2022 Instruction Type:Provider Instructions for Treatment How to Access Health Informa tion Online using Patient Portal and 3rd [employer] Indication:Non-smoker Start:15-Mar-2022 Instruction Type:Patient Education Patient Instructions Indication:Morbid obesity Start:08-Mar-2022 Instruction Type:Provider Instructions for Treatment How to Access Health Informa tion Online using Patient Portal and 3rd [employer] Indication:Morbid obesity Start:08-Mar-2022 Instruction Type:Patient Education Patient Instructions Indication:Non-smoker Start:22-Feb-2022 Instruction Type:Provider Instructions for Treatment How to Access Health Informa tion Online using Patient Portal and 3rd [employer] Indication:Non-smoker Start:22-Feb-2022 Instruction Type:Patient Education Patient Instructions Indication:Non-smoker Start:05-Feb-2022 Instruction Type:Provider Instructions for Treatment How to Access Health Informa tion Online using Patient Portal and 3rd [employer] Indication:Non-smoker Start:05-Feb-2022 Instruction Type:Patient Education Patient Instructions Indication:Impaired fasting glucose Start:24-Jan-2022 Instruction Type:Provider Instructions for Treatment How to Access Health Informa tion Online using Patient Portal and 3rd [employer] Indication:Impaired fasting glucose Start:24-Jan-2022 Instruction Type:Patient Education Patient Instructions Indication:BMI 39.0-39.9,adult Start:24-Oct-2021 Instruction Type:Provider Instructions for Treatment How to Access Health Informa tion Online using Patient Portal and 3rd [employer] Indication:BMI 39.0-39.9,adult Start:24-Oct-2021 Instruction Type:Patient Education Patient Instructions Indication:BMI 39.0-39.9,adult Start:30-May-2021 Instruction Type:Provider Instructions for Treatment How to Access Health Informa tion Online using Patient Portal and 3rd [employer] Indication:BMI 39.0-39.9,adult Start:30-May-2021 Instruction Type:Patient Education Patient Instructions Indication:Encounter for screening for malignant neoplasm of colon (Renamed from Special screening for malignant neoplasms, colon) Start:25-Apr-2021 Instruction Type:Provider Instructions for Treatment How to Access Health Informa tion Online using Patient Portal and 3rd [employer] Indication:Non-smoker Start:25-Apr-2021 Instruction Type:Patient Education Patient Instructions Indication:Non-smoker Start:17-Jan-2021 Instruction Type:Provider Instructions for Treatment How to Access Health Informa tion Online using Patient Portal and 3rd [employer] Indication:Non-smoker Start:17-Jan-2021 Instruction Type:Patient Education Patient Instructions Indication:CKD stage G3b/A1, GFR 30-44 and albumin creatinine ratio <30 mg/g Start:16-Dec-2020 Instruction Type:Provider Instructions for Treatment How to Access Health Informa tion Online using Patient Portal and 3rd [employer] Indication:JESUS (obstructive sleep apnea) Start:16-Dec-2020 Instruction Type:Patient Education Patient Instructions Indication:Non-smoker Start:09-Dec-2020 Instruction Type:Provider Instructions for Treatment How to Access Health Informa tion Online using Patient Portal and 3rd [employer] Indication:HTN (hypertension), benign Start:09-Dec-2020 Instruction [...] tion Online using Patient Portal and 3rd [employer] Indication:Non-smoker Start:29-Apr-2023 Instruction Type:Patient Education Patient Instructions Indication:Non-smoker Start:29-Apr-2023 Instruction Type:Provider Instructions for Treatment How to Access Health Informa tion Online using Patient Portal and 3rd [employer] Indication:Non-smoker Start:12-Apr-2023 Instruction Type:Patient Education Patient Instructions Indication:Non-smoker Start:12-Apr-2023 Instruction Type:Provider Instructions for Treatment Patient Instructions Indication:Non-smoker Start:25-Mar-2023 Instruction Type:Provider Instructions for Treatment How to Access Health Informa tion Online using Patient Portal and 3rd [employer] Indication:Non-smoker Start:25-Mar-2023 Instruction Type:Patient Education Patient Instructions Indication:Non-smoker Start:25-Feb-2023 Instruction Type:Provider Instructions for Treatment How to Access Health Informa tion Online using Patient Portal and 3rd [employer] Indication:Non-smoker Start:25-Feb-2023 Instruction Type:Patient Education Patient Instructions Indication:BMI 40.0-44.9, adult Start:25-Oct-2022 Instruction Type:Provider Instructions for Treatment How to Access Health Informa tion Online using Patient Portal and 3rd [employer] Indication:BMI 40.0-44.9, adult Start:25-Oct-2022 Instruction Type:Patient Education Patient Instructions Indication:Non-smoker Start:15-Mar-2022 Instruction Type:Provider Instructions for Treatment How to Access Health Informa tion Online using Patient Portal and 3rd [employer] Indication:Non-smoker Start:15-Mar-2022 Instruction Type:Patient Education Patient Instructions Indication:Morbid obesity Start:08-Mar-2022 Instruction Type:Provider Instructions for Treatment How to Access Health Informa tion Online using Patient Portal and 3rd [employer] Indication:Morbid obesity Start:08-Mar-2022 Instruction Type:Patient Education Patient Instructions Indication:Non-smoker Start:22-Feb-2022 Instruction Type:Provider Instructions for Treatment How to Access Health Informa tion Online using Patient Portal and 3rd [employer] Indication:Non-smoker Start:22-Feb-2022 Instruction Type:Patient Education Patient Instructions Indication:Non-smoker Start:05-Feb-2022 Instruction Type:Provider Instructions for Treatment How to Access Health Informa tion Online using Patient Portal and [employer]rd [employer] Indication:Non-smoker Start:05-Feb-2022 Instruction Type:Patient Education Patient Instructions Indication:Impaired fasting glucose Start:24-Jan-2022 Instruction Type:Provider Instructions for Treatment How to Access Health Informa tion Online using Patient Portal and [employer]rd [employer] Indication:Impaired fasting glucose Start:24-Jan-2022 Instruction Type:Patient Education Patient Instructions Indication:BMI 39.0-39.9,adult Start:24-Oct-2021 Instruction Type:Provider Instructions for Treatment How to Access Health Informa tion Online using Patient Portal and 3rd [employer] Indication:BMI 39.0-39.9,adult Start:24-Oct-2021 Instruction Type:Patient Education Patient Instructions Indication:BMI 39.0-39.9,adult Start:30-May-2021 Instruction Type:Provider Instructions for Treatment How to Access Health Informa tion Online using Patient Portal and 3rd [employer] Indication:BMI 39.0-39.9,adult Start:30-May-2021 Instruction Type:Patient Education Patient Instructions Indication:Encounter for screening for malignant neoplasm of colon (Renamed from Special screening for malignant neoplasms, colon) Start:25-Apr-2021 Instruction Type:Provider Instructions for Treatment How to Access Health Informa tion Online using Patient Portal and 3rd [employer] Indication:Non-smoker Start:25-Apr-2021 Instruction Type:Patient Education Patient Instructions Indication:Non-smoker Start:17-Jan-2021 Instruction Type:Provider Instructions for Treatment How to Access Health Informa tion Online using Patient Portal and [employer]rd [employer] Indication:Non-smoker Start:17-Jan-2021 Instruction Type:Patient Education Patient Instructions Indication:CKD stage G3b/A1, GFR 30-44 and albumin creatinine ratio <30 mg/g Start:16-Dec-2020 Instruction Type:Provider Instructions for Treatment How to Access Health Informa tion Online using Patient Portal and 3rd [employer] Indication:JESUS (obstructive sleep apnea) Start:16-Dec-2020 Instruction Type:Patient Education Patient Instructions Indication:Non-smoker Start:09-Dec-2020 Instruction Type:Provider Instructions for Treatment How to Access Health Informa tion Online using Patient Portal and 3rd [employer] Indication:HTN (hypertension), benign Start:09-Dec-2020 Instruction [...] DATE CREATED AUTHOR AUTHOR'S SAVIIZ ATION 05/24/2018 [facility] DATE CREATED AUTHOR AUTHOR'S ORGANIZ ATION 05/27/2018 [facility] DATE CREATED AUTHOR AUTHOR'S ORGANIZ ATION 10/30/2022 [facility] FOR RECORDS PERTAINING TO PATIENTS WHO [...] BE BASED ON THE PRIMARY CLINICAL RECORDS. [facility] [employer] provides no warranty or guarantee of the accuracy or completeness of information in this document.
[2023-08-27 23:33] VITALS: BP 188/91; PULSE 66; RESP 14; O2SAT 95
[2023-08-27 23:33] LABS: Reflex Troponin-HS? (from REC) Y
[2023-08-28 00:18] VITALS: BP 189/80; PULSE 74; RESP 16; O2SAT 97
[2023-08-28 00:22] LABS: Troponin-I HS 22 pg/mL (3.0-54.0)
== END 2023-08-28 00:18 | disposition home or self-care (01) ==
PROVIDERS: Emergency Provider Emergency Medicine; PCP Internal Medicine; Visit Provider Emergency Medicine
DX: R00.2 Palpitations (principal); N18.30 Chronic kidney disease, stage 3 unspecified; R23.2 Flushing; I12.9 Hypertensive chronic kidney disease with stage 1 through stage 4 chronic kidney disease, or unspecified chronic kidney disease; Z79.82 Long term (current) use of aspirin; Z79.899 Other long term (current) drug therapy; Z86.73 Personal history of transient ischemic attack (TIA), and cerebral infarction without residual deficits
CPT/HCPCS: 71045; 80048; 84484; 85025; 93005; 99284; A4216

== ENCOUNTER 2023-10-04 06:35 | Outpatient (CLI) | payer MEDICARE, OTHER, SELFPAY ==
--- NOTE | 2023-10-07 15:52 | STRESSREP_ITS ---
Stress Test Report Date: [10/04/2023] Procedure: Pharmacologic stress nuclear imaging study Indications: Arrhythmia Consent: Per the patient Procedure: The patient underwent pharmacologic (Regadenoson) evaluation with a peak heart rate of 86 beats per minute (58%predicted maximal heart rate) and a peak blood pressure of 138/88 mmHg. The baseline ECG demonstrated normal sinus rhythm, nonspecific ST-T changes. EKG during lexiscan infusion revealed no significant ischemic changes. EKG post infusion revealed no significant ischemic changes [There were no cardiac dysrhythmias pretest, during pharmacologic infusion, or recovery]. [There was no complaint of chest discomfort during pharmacologic infusion or recovery]. The examination was discontinued secondary to completion of protocol. Impression: 1. Lexiscan stress test test is negative for Lexiscan infusion induced EKG changes of ischemia. 2. Lexiscan stress test test is negative for Lexiscan infusion induced chest pain. 3. Results of the nuclear portion of the test is as below Myocardial perfusion imaging study: Technique: The patient was injected with 14.7 millicuries of technetium 99m Cardiolite and subsequently rest SPECT Cardiolite nuclear imaging was obtained in the horizontal long, vertical long, and short axis views. The patient underwent pharmacologic [Regadenoson 0.4mg] evaluation. Please see above for details. The patient was injected with 44.9 millicuries of technetium 99m Cardiolite and subsequently stress SPECT Cardiolite nuclear imaging was obtained in the horizontal long, vertical long, and short axis views. A gated Cardiolite study at peak stress was obtained. Interpretation: Rest and stress SPECT Cardiolite nuclear imaging status post realignment, normalization, and attenuation correction demonstrate no evidence of significant ischemia or infarction. Gated images reveal no significant regional wall motion abnormalities. The reported LVEF is 71%. Impression: 1. There is no evidence of significant ischemia or infarction. 2. Estimated ejection fraction is 71%. This note was generated with [employer] software. It may contain incorrect words, spelling, and punctuation that were not noted in checking the note before signing.
== END 2023-10-04 23:59 | disposition home or self-care (01) ==
LOC: CVS 06:37
PROVIDERS: PCP Internal Medicine; Referring Provider Internal Medicine; Visit Provider Internal Medicine
DX: I48.91 Unspecified atrial fibrillation (principal); I47.20 Ventricular tachycardia, unspecified; I51.89 Other ill-defined heart diseases; R94.31 Abnormal electrocardiogram [ECG] [EKG]
CPT/HCPCS: 78452; 93017; A9500; A4216; J2785

== ENCOUNTER → 2024-04-01 | Outpatient (CLI) | payer MEDICARE, OTHER, SELFPAY ==
[2024-04-01 11:41] LABS: Absolute Lymphocyte Count 1.48 X10^3/uL (0.83-4.51); Absolute Neutrophil Count 4.4 X10^3/uL (2.0-7.7); Basophil# 0.02 X10^3/uL; Basophil% 0.3 % (0-1); Hematocrit 33.3 % (37-47); Hemoglobin 10.4 g/dL (12.0-15.0); Lymphocyte # 1.48 X10^3/ul (0.83-4.51); Lymphocyte % 22.1 % (19-41); Mean Corp Hgb Conc 31.2 g/dL (32-36); Mean Corpuscular Hgb 27.9 pg (27.0-32.0); Mean Corpuscular Volume 89.3 fL (81-99); Mean Platelet Vol. 10.3 fl (6.2-12.0); Monocyte# 0.56 X10^3/uL; Monocyte% 8.4 % (0-10); NRBC Flagged by Analyzer 0 % (0-5); Neutrophil # 4.42 X10^3/uL (2.7-7.7); Neutrophil % 65.9 % (47-70); Platelet Count 247 K/mm3 (150-450); RBC Distribution Width CV 14.6 % (11.6-14.6); RBC Distribution Width SD 47.4 fl (35.1-43.9); Red Blood Count 3.73 M/mm3 (4.2-5.4); White Blood Count 6.7 K/mm3 (4.4-11.0)
[2024-04-01 12:40] LABS: Anion Gap 4 (5-15); BUN 14 mg/dL (7-18); BUN/Creat Ratio 10.1 RATIO (10-20); Calcium,Total 9.3 mg/dL (8.5-10.1); Chloride 111 mmol/L (98-107); Creatinine, Serum 1.39 mg/dL (0.55-1.02); EST Glomerular Filtration Rate 39 mL/min (>60); Est Glom Filt Rate - Afr Amer 48 mL/min (>60); Glucose 80 mg/dL (74-106); Potassium 4.1 mmol/L (3.5-5.1); Sodium Level 142 mmol/L (136-145)
== END | disposition home or self-care (01) ==
LOC: LAB 11:16
PROVIDERS: PCP Internal Medicine; Referring Provider Physician Assistant Medical; Visit Provider Physician Assistant Medical
DX: I10 Essential (primary) hypertension (principal); I48.0 Paroxysmal atrial fibrillation
CPT/HCPCS: 36415; 80048; 85025

== ENCOUNTER → 2025-03-03 | Outpatient (CLI) | payer MEDICARE, OTHER, SELFPAY ==
[2025-03-03 18:03] LABS: Hematocrit 35.1 % (37-47); Hemoglobin 11.0 g/dL (12.0-15.0); Immature Granulocytes Count 0.030 X10^3/uL (0.0-0.0); Mean Corp Hgb Conc 31.3 g/dL (32-36); Mean Corpuscular Volume 88.0 fL (81-99); Mean Platelet Vol. 10.0 fl (6.2-12.0); NRBC Flagged by Analyzer 0 % (0-5); Platelet Count 226 K/mm3 (150-450); RBC Distribution Width CV 14.4 % (11.6-14.6); RBC Distribution Width SD 46.6 fl (35.1-43.9); Red Blood Count 3.99 M/mm3 (4.2-5.4); White Blood Count 6.8 K/mm3 (4.4-11.0)
[2025-03-03 18:41] LABS: AST(SGOT) 18 U/L (<=31); Alanine Aminotransfer ALT/SGPT 14 U/L (<=34); Albumin, Serum 4.0 g/dL (3.4-4.8); Alkaline Phosphatase 123 U/L (35-104); Anion Gap 12 (5-15); BUN 22 mg/dL (4-19); BUN/Creat Ratio 16.5 RATIO (10-20); CRP 9.36 mg/L (0.0-3.0); Calcium,Total 9.4 mg/dL (7.6-11.0); Carbon Dioxide 21.9 mmol/L (21.0-32.0); Chloride 109 mmol/L (98-108); Free T3 2.6 pg/mL (2.18-3.98); Globulin 3.1 g/dL (2.2-4.2); Glucose 95 mg/dL (70-99); Potassium 4.3 mmol/L (3.3-5.1)
== END | disposition home or self-care (01) ==
LOC: LAB 17:36
PROVIDERS: PCP Internal Medicine; Referring Provider Internal Medicine; Visit Provider Internal Medicine
DX: Z51.81 Encounter for therapeutic drug level monitoring (principal); N93.9 Abnormal uterine and vaginal bleeding, unspecified; E04.1 Nontoxic single thyroid nodule; R30.0 Dysuria; R93.89 Abnormal findings on diagnostic imaging of other specified body structures
CPT/HCPCS: 36415; 80053; 84439; 84443; 84481; 85025; 85652; 86140; 87077; 87086; 87088; 87186

== ENCOUNTER → 2025-03-09 | Outpatient (CLI) | payer MEDICARE, OTHER, SELFPAY ==
--- NOTE | 2025-03-09 14:20 | US_ITS ---
PROCEDURE: THYROID 03/09/2025 REASON FOR EXAM: NODULE TECHNIQUE: THYROID COMPARISON: None FINDINGS: Right thyroid lobe size: 4.6 cm x 1.9 cm x 2 cm Left thyroid lobe size: 5.1 cm 2.7 cm x 2.6 cm Isthmus: 0.4 cm Background parenchymal echotexture is homogeneous. Nodules: . Lobe: Right, Location: Upper pole, Size: 0.6 cm x 0.5 cm x 0.4 cm, Stability: N/A Composition: Solid or almost completely solid (+2) Echogenicity: Hypoechoic (+2) Margin: Smooth (+0) Shape: Wider than tall (+0) Echogenic Foci: None (+0) TI-RADS: 4 . Lobe: Left, Location: Lower pole, Size: 3.6 cm by 2.6 cm x 2.7 cm, Stability: N/A Composition: Mixed cystic and solid (+1) Echogenicity: Hypoechoic (+2) Margin: Smooth (+0) Shape: Wider than tall (+0) Echogenic Foci: Punctate echogenic foci (microcalcs) (+3) TI-RADS: 4 US/Thyroid IMPRESSION: Complex dominant mass in the left lobe of the thyroid as described. Biopsy rec ommended. RECOMMENDATION: Based on most suspicious nodule. Nodule size = largest diameter Only evaluate nodule if =>5 mm. Growth > 20% in 2 dimensions = worsening. Follow up to 4 nodules. Recommend biopsy for no more than 2 nodules. Reading Location: [facility]
--- NOTE | 2025-03-09 14:20 | US_ITS ---
PROCEDURE: PELVIC W/ TRANSVAGINAL REASON FOR EXAM: ABN VAGINAL BLEEDING TECHNIQUE: PELVIC W/ TRANSVAGINAL COMPARISON: None FINDINGS: Measurements: Uterus: 9.4 cm x 5.8 cm x 4.5 cm with a volume of 129.13 mL Endometrial Thickness: 13 mm. It is heterogeneous. Small amount of fluid is seen within it. Increased vascularity. Right Ovary: Not visualized. Left Ovary: Not visualized. TRANSABDOMINAL: Uterus: 1 cm x 1.1 cm x 0.6 cm fundal fibroid. Nabothian cyst. Endometrium: Heterogeneous thickening with vascularity and fluid of the endometrium measuring 13 mm. Clinical correlation recommended. Right ovary: Not visualized. Left ovary: Not visualized. Other: No large pelvic mass identified. Transvaginal sonography was performed to better visualize the endometrium. TRANSVAGINAL: Uterus: Fibroid uterus. Endometrium: Heterogeneously thickened endometrium as described. Clinical correlation recommended. Right ovary: Normal size and echotexture. Left ovary: Normal size and echotexture. Other adnexal findings: None. Cul-de-sac: No free intraperitoneal fluid identified. Tenderness: No tenderness US/Pelvic w/ Transvaginal IMPRESSION: Heterogeneously thickened endometrium measuring 13 mm. Clinical correlation re commended. Reading Location: [facility]
== END | disposition home or self-care (01) ==
LOC: US 14:18
PROVIDERS: PCP Internal Medicine; Referring Provider Internal Medicine; Visit Provider Internal Medicine
DX: E04.1 Nontoxic single thyroid nodule (principal); N93.9 Abnormal uterine and vaginal bleeding, unspecified
CPT/HCPCS: 76536; 76830; 76856

== ENCOUNTER → 2025-03-16 | Outpatient (CLI) | payer MEDICARE, OTHER, SELFPAY ==
--- NOTE | 2025-03-16 06:25 | CT_ITS ---
PROCEDURE: ABDOMEN W/WO IV CONTRAST 03/16/2025 REASON FOR EXAM: ADRENAL MASS TECHNIQUE: ABDOMEN W/WO IV CONTRAST. Multiplanar Sagittal and Coronal images were obtained. One or more dose reduction techniques were used (e.g., Automated exposure control, adjustment of the mA and/or kV according to patient size, use of iterative reconstruction technique. CONTRAST: Isovue-300 VOLUME: 100 mL RADIATION DOSE SUMMARY: CTDlvol: 20.19 mGy DLP: 791.71 mGycm COMPARISON: Prior study dated January 12, 2021. FINDINGS: Lung bases: Mild dependent atelectasis Liver: Normal size. No mass. Gallbladder: Surgically absent. Spleen: Scattered calcified granulomas. Pancreas: Diffuse fatty atrophy. Adrenals: Unremarkable Kidneys: Atrophy of the right kidney. There is a 6.1 cm by 6 cm cyst in the mid inferior pole of the left kidney. Bowel: Sigmoid diverticulosis Lymph nodes: Unremarkable. Vasculature: Unremarkable Peritoneum / Retroperitoneum: Unremarkable Bones: Degenerative changes of the spine. CT/Abdomen W/WO IV Contrast IMPRESSION: The adrenal glands are unremarkable. Status post cholecystectomy. Left renal cyst. Reading Location: [id number]
--- OUTSIDE RECORDS SUMMARY | 2025-03-16 06:32 | XMS RPT_ITS | CCD ---
Author Organization [facility] Care Team Providers Care Basket Machine Operator Name Role Phone Troy Ovalle Unavailable Unavailable Makayla Agustin Unavailable Unavailable Troy Ovalle Unavailable Unavailable Troy Ovalle Unavailable Unavailable Boneedini, Makayla M Unavailable Unavailable Troy Ovalle R Unavailable Unavailable Bonejonathan, Makayla M Unavailable Unavailable Troy Ovalle Unavailable Unavailable Patricia Becker Unavailable Makayla Agustin Unavailable Danielle Shah Unavailable Unavailable Senia Coe Unavailable Unavailable Unavailable Unavailable Paxton Contreras Unavailable Gravius, Shaye Unavailable Unavailable Unavailable Unavailable Jannette Dooley Unavailable Unavailable Gravius, Shaye Unavailable Unavailable Senia Coe Unavailable Unavailable Unavailable Unavailable Patricia Becker DO Unavailable Paxton Contreras Unavailable Makayla Agustin MD Unavailable Jannette Dooley LPN Unavailable Unavailable Gravius ALEJANDRO, Shaye Unavailable Unavailable Messenger Senia CHRISTIAN Unavailable Unavailable Unavailable Unavailable Guzman ELIAS, Yola Barney Unavailable Elijah Chaves LPN Unavailable Unavailable Unavailable Unavailable pJ PARSONS, Darrian Kingston Unavailable Edwina Braden LPN Unavailable Unavailable Nani Gonzales Unavailable Dr. Patricia Becker Primary Care Provider [phone] Dr. Francisco Javier Mcgovern Emergency Provider [phone] Vandana Bishop Admit Provider Dr. Vandana Bishop Attending Provider Dr. Vandana Bishop Other Provider Patricia Becker DO Unavailable Makayla Agustin MD Unavailable Yola Hinds Unavailable Yola Hinds Unavailable [employer] FIELD PIPE LINES SUPERVISOR, Kayela Unavailable Unavailable Anthony RESILIENT TILE INSTALLER, Deedee Unavailable Knapic DO , Dr. Donovan Lr S Unavailab le Patricia Becker DO Attending Unavailable Makayla Agustin MD Referring Unavailable Patricia Becker DO Consulting Unavailable [place] SYNTHETIC DEPARTMENT SUPERVISOR, Heyworth Unavailable Unavailable Dr. Patricia Becker Primary Care Provider [phone] Dr. Alireza Arellano Attending Provider [phone] Aram Gutiérrez Attending Provider [phone] Christopher Gao Emergency Provider Dr. Vandana Bishop Admit Provider Dr. Vandana Bishop Other Provider Dr. Mike Taveras Attending Provider Dr. Mike Taveras Other Provider MD Brandon Hassan Other Provider Unavailable Dr. Roney Chadwick Other Provider MD Shagufta Lee Other Provider Unavailable Dr. Yancy Bond Other Provider Dr. Jennifer Bauer Other Provider Dr. Dmitriy Curiel Other Provider Dr. Juliann Damico Other Provider Dr. Delano Jansen Other Provider Dr. Troy Núñez Other Provider MD Petrona Rivera Other Provider Dr. Jensen Bass Other Provider Dr. Sharmin Acevedo Other Provider Dr. Don Hurst Other Provider [phone] Dr. Shivani Mcgowan Other Provider Dr. Brandon Bernstein Other Provider Dr. Shahzad Ocampo Other Provider Dr. Aung Altamirano Other Provider Dr. Claudia Gonzales Other Provider Unavailable MD Yue Victor Other Provider Unavailable Dr. Vandana Bishop Referring Provider Dr. Patricia Becker Primary Care Provider Dr. Alireza Arellano Attending Provider Dr. Aram Gutiérrez Attending Provider Dr. Vandana Bishop Referring Provider Dr. Christopher Gao Emergency Provider Dr. Vandana Bishop Admit Provider Dr. Vandana Bishop Other Provider Dr. Mike Taveras Attending Provider [phone] Dr. Mike Taveras Other Provider MD Brandon Hassan Other Provider Unavailable Dr. Roney Chadwick Other Provider MD Shagufta Lee Other Provider Unavailable Dr. Yancy Bond Other Provider Dr. Jennifer Bauer Other Provider Dr. Dmitriy Curiel Other Provider [phone] Dr. Juliann Damico Other Provider Dr. Delano Jansen Other Provider Dr. Troy Núñez Other Provider MD Petrona Rivera Other Provider Dr. Jensen Bass Other Provider Dr. Sharmin Acevedo Other Provider Dr. Don Hurst Other Provider [phone] Shivani Mcgowan Other Provider Dr. Brandon Bernstein Other Provider [phone] Shahzad Ocampo Other Provider Dr. Aung Altamirano Other Provider [phone] Claudia Gonzales Other Provider Unavailable MD Yue Victor Other Provider Unavailable Dr. Mike Taveras Referring Provider Dr. Patricia Becker Referring Provider Dr. Patricia Becker Other Provider Dr. Nina Chou Attending Provider Rosita DO, Dr. Gomez Primary Care Provider [phone] Dr. Patricia Becker DO Referring Provider Cassie Ordonez Attending Provider Robin SELLING SPECIALIST-Tasha Matias Attending Provider Adan PARSONS, Dr. Lay Attending Provider Rosita, Patricia Referring Unavailable Rosita, Patricia Primary Care Unavailable Rosita, Patricia Attending Unavailable Rosita, Patricia Referring Unavailable Rosita, Patricia Primary Care Unavailable Tasha Kelly Attending Unavailable Alireza Arellano Attending Unavailable Rosita, Patricia Primary Care Unavailable Cassie Ordonez Attending Unavail able Rosita, Patricia Referring Unavailable Rosita, Patricia Primary Care Unavailable Rosita, Patricia Referring Unavailable Cassie Ordonez Attending Unavail able Rosita, Patricia Primary Care Unavailable Cassie Ordonez Attending Unavail able Cassie Ordonez Referring Unavail able Rosita, Patricia Primary Care Unavailable Rosita, Patricia Primary Care Unavailable Tasha Kelly Attending Unavailable Rosita, Patricia Referring Unavailable Rosita, Patricia Primary Care Unavailable Rosita, Patricia Attending Unavailable Patricia Becker Primary Care Unavailable Patricia Becker Attending Unavailable Patricia Becker Referring Unavailable Patricia Becker Primary Care Unavailable Patricia Becker Attending Unavailable Patricia Becker Referring Unavailable Dr. Patricia Becker DO Primary Care Provider Dr. Patricia Becker DO Referring Provider [phone] Rosita HANNA, Dr. Gomez Attending Provider Allergies Allergy Classification Reported Allergen(s) Allergy Type Date of Onset Reaction(s) Facility (15 sources) POISON BRANDEE EXTRACT Drug Allergy 10-18-2021 [facility] (16 sources) poison oak extract; Translations: [poison oak extract] Allergy to substance 10-18-2021 [facility] (1 source) poison brandee extract Drug allergy (disorder) 12-23-2024 [facility] Repository Medications Current Medications Medication Drug Class(es) Dates Sig (Normalized) Sig (Original) amLODIPine 2.5 mg oral tablet (4 sources) Dihydropyridine Calcium Channel Percy Start: 04-01-2024 take 1 tablet by mouth once daily Amlodipine (Norvasc) 2.5 mg tablet Active 2.5 mg PO daily 27 06April 01, 2024 12:00am apixaban 5 mg oral tablet (5 sources) Factor Xa Inhibitor Start: 09-20-2023 take 1 tablet by mouth twice daily Apixaban (Eliquis) 5 mg tablet Active 5 mg PO TWICE A DAY September 20, 2023 1:00am atorvastatin 80 mg oral tablet (8 sources) HMG-CoA Reductase Inhibitor Start: 08-09-2023 take 1 tablet by mouth at bedtime Atorvastatin 80 mg Tablet Active 80 mg PO AT BEDTIME 90 90 3 August 09, 2023 1:00am rizatriptan 10 mg disintegrating oral tablet (11 sources) Serotonin-1b and Serotonin-1d Receptor Agonist Start: 09-20-2023 take 1 tablet by mouth every two hours Rizatriptan (Maxalt-Infantry Unit Leader) 10 mg tablet,disintegra ting Active 0 PO .COMPLEX September 20, 2023 1:00am take 1 tab at onset of headache; if no relief may repeat 1 tab after at least 2 hrs; max = 3 tabs/24 hr PO Start: 04-29-2023 take 1 tablet by marivel th every two hours Maxalt-BIOMASS POWER PLANT SUPERINTENDENT 10 mg oral Tablet,disintegrating 1 (one) tablet at onset of rahman may repeat in 2hr if rahman still present for 0 days Quantity: 10 {Tablet} Refills: 0 Ordered: 29-Apr-2023 Rosita HANNAPatricia Rosita HANNA Patricia Start : 29-Apr-2023 Active Completed/Discontinued Medications Medication Drug Class(es) Dates Sig (Normalized) Sig (Original) acetaminophen 325 mg / oxyCODONE hydrochloride 5 mg oral tablet (15 sources) Opioid Agonist Start: 03-24-2019 End: 03-31-2019 Oxycodone-Acetamino phen 1 TABLET tablet Discontinued 1 - 2 {tbl} PO EVERY 6 HOURS NEEDED as needed for Pain March 24, 2019 March 30, 2019 12:00am March 31, 2019 12:07am Calculus of left kidney Calculus of kidney Start: 03-24-2019 End: 03-31-2019 take 1 tablet by mouth every six hours as needed Oxycodone-Acetaminophen Discontinued 1 - 2 TABLET PO EVERY 6 HOURS NEEDED 14 02March 24, 2019 March 31, 2019 12:07am [id number] 200 actuat albuterol 0.09 mg/actuat metered dose inhaler (20 sources) beta2-Adrenergic Agonist Start: 08-06-2017 End: 10-08-2018 take 2 puff(s) by inhalation three times daily ProAir HFA 108 (90 Base) MCG/ACT Inhalation Aerosol Solution 2 (two) Puff tid for 0 days Quantity: 1 {Inhaler} Refills: 0 Ordered: 08-Oct-2018 Senia Coe RN Start : 06-Aug-2017 End : 08-Oct-2018 Inactive Start: 08-06-2017 End: 10-08-2018 take 2 puff(s) by inhalation three times daily ProAir HFA 108 (90 Base) MCG/ACT Inhalation Aerosol Solution 2 (two) Puff tid for 0 days Quantity: 1 {Inhaler} Refills: 0 Ordered: 08-Oct-2018 Senia Coe RN Start : 06-Aug-2017 End : 08-Oct-2018 Inactive amoxicillin 875 mg / clavulanate 125 mg oral tablet (20 sources) Penicillin-class Antibacterial Start: 09-20-2016 End: 09-30-2016 take 1 tablet by mouth twice daily Augmentin 875-125 MG Oral Tablet 1 (one) Tablet BID for 10 days Quantity: 20 {Tablet} Refills: 0 Ordered: 20-Sep-2016 Senia Bynum Start : 20-Sep-2016 End : 30-Sep-2016 Inactive aspirin 81 mg chewable tablet (18 sources) Platelet Aggregation Inhibitor, Nonsteroidal Anti-inflammatory Drug Start: 08-27-2023 End: 10-09-2023 take 4 tablets by mouth at breakfast Aspirin 81 mg tablet,chewable Discontinued 324 mg PO WITH BREAKFAST October 09, 2023 10:57am October 09, 2023 11:44am Start: 08-27-2023 take 324 mg by mouth at breakfast Aspirin Active 324 MG PO WITH BREAKFAST August 27, 2023 1:00am Start: 08-09-2023 End: 08-27-2023 take 1 tablet by mouth at breakfast Aspirin 81 mg Tablet,Chewable Discontinued 81 mg PO WITH BREAKFAST 90 90 3 August 09, 2023 1:00am August 27, 2023 9:11pm azithromycin 250 mg oral tablet (20 sources) Macrolide Antimicrobial Start: 08-06-2017 End: 10-08-2018 Zithromax Z-Lacy 250 MG Oral Tablet 1 (one) Tablet TAD for 0 days Quantity: 1 {Package} Refills: 0 Ordered: 08-Oct-2018 Senia Coe RN Start : 06-Aug-2017 End : 08-Oct-2018 Inactive 24 hr buPROPion hydrochloride 300 mg extended release oral tablet (20 sources) Aminoketone Start: 11-09-2013 End: 10-25-2014 take 1 tablet by mouth once daily WELLBUTRIN XL, 300MG (Oral Tablet Extended Release 24 Hour) 1 Tablet ER 24HR daily for 0 days Quantity: 90 {Tablet} Refills: 1 Ordered: 25-Oct-2014 Jocelin Mann Start : 09-Nov-2013 End : 25-Oct-2014 Inactive cephalexin 500 mg oral capsule (20 sources) Cephalosporin Antibacterial Start: 04-21-2019 End: 04-27-2019 take 1 capsule by mouth every twelve hours Cephalexin 500 MG capsule Discontinued 500 mg PO EVERY 12 HOURS 6 3 0 April 21, 2019 12:00am April 23, 2019 12:00am April 27, 2019 12:09am post-operative Start: 03-24-2019 End: 03-28-2019 take 1 capsule by mouth every twelve hours Cephalexin 500 MG capsule Discontinued 500 mg PO EVERY 12 HOURS 6 3 0 March 24, 2019 12:00am March 26, 2019 12:00am March 28, 2019 12:09am post-operative ciprofloxacin 500 mg oral tablet (20 sources) Quinolone Antimicrobial Start: 07-10-2013 End: 07-17-2013 take 1 tablet by mouth twice daily CIPRO, 500MG (Oral Tablet) 1 Tablet bid for 7 days Quantity: 14 {Tablet} Refills: 0 Ordered: 10-Jul-2013 Yola Hinds Start : 10-Jul-2013 End : 17-Jul-2013 Inactive 24 hr clarithromycin 500 mg extended release oral tablet (20 sources) Macrolide Antimicrobial Start: 04-14-2015 End: 04-24-2015 take 2 tablets by mouth once daily BIAXIN XL PAC, 500MG (Oral Tablet Extended Release 24 Hour) 2 (two) Tablet ER 24HR daily for 10 days Quantity: 20 {Tablet} Refills: 0 Ordered: 14-Apr-2015 Makayla Agustin MD Start : 14-Apr-2015 End : 24-Apr-2015 Inactive Start: 04-14-2015 End: 04-24-2015 take 2 tablets by mouth once daily BIAXIN XL PAC, 500MG (Oral Tablet Extended Release 24 Hour) 2 (two) Tablet ER 24HR daily for 10 days Quantity: 20 {Tablet} Refills: 0 Ordered: 14-Apr-2015 Makayla Agustin MD Start : 14-Apr-2015 End : 24-Apr-2015 Inactive codeine phosphate 2 mg/ml / guaiFENesin 20 mg/ml oral solution (20 sources) Opioid Agonist Start: 08-06-2017 End: 10-08-2018 take 5 mL by mouth every four to six hours as needed for cough Cheratussin AC 100-10 MG/5ML Oral Syrup 5 Milliliter Q4-6 HRS PRN Cough for 0 days Quantity: 270 {Milliliter} Refills: 0 Ordered: 08-Oct-2018 Senia Coe RN Start : 06-Aug-2017 End : 08-Oct-2018 Inactive Start: 04-14-2015 End: 09-20-2016 take 1 [tsp_us] by mouth once daily at bedtime as needed Cheratussin AC 100-10 MG/5ML Oral Syrup 1 (one) Teaspoon qhs prn for 0 days Quantity: 6 {Fluid_Ounce} Refills: 0 Ordered: 20-Sep-2016 Senia Coe RN Start : 14-Apr-2015 End : 20-Sep-2016 Inactive Comments: six Comment on above: six codeine phosphate 2 mg/ml / guaiFENesin 20 mg/ml / pseudoephedrine hydrochloride 6 mg/ml oral solution (20 sources) alpha-Adrenergic Agonist, Opioid Agonist Start: 5 End: 5 take 1-2 [tsp_us] by mouth once daily at bedtime as needed CHERATUSSIN DAC, 30-10-100MG/5ML (Oral Solution) 1-2 Teaspoon qhs prn for 0 days Quantity: 6 {Ounce} Refills: 0 Ordered: 14-Apr-2015 JJ Lee LPN Start : 19-Jan-2015 End : 14-Apr-2015 Inactive colchicine 0.6 mg oral capsule (14 sources) Start: 4 End: 4 take 1 capsule by mouth once daily Colchicine 0.6 mg capsule Discontinued 0.6 mg PO DAILY September 20, 2023 1:00am October 09, 2023 10:57am Start: 08-07-2023 End: 08-07-2023 take 1 tablet by mouth twice daily Colchicine 0.6 mg tablet Discontinued 0.6 mg PO TWICE A DAY August 07, 2023 1:00am August 07, 2023 8:58pm GOUT 24 hr dilTIAZem hydrochloride 360 mg extended release oral capsule (20 sources) Calcium Channel Percy Start: 07-27-2019 End: 07-27-2019 take 1 capsule by mouth once daily Cardizem CD 360 MG Oral Capsule Extended Release 24 Hour 1 (one) Capsule qd for 0 days Quantity: 30 {Capsule} Refills: 3 Ordered: 27-Jul-2019 Patricia Becker DO, DO, Kathleen Start : 27-Jul-2019 End : 27-Jul-2019 Discontinued Comments: ? causing edema Start: 03-31-2019 take 1 capsule by [facility] once daily Cardizem CD 360 MG Oral Capsule Extended Release 24 Hour 1 (one) Capsule qd for 0 days Quantity: 30 {Capsule} Refills: 3 Ordered: 31-Mar-2019 Patricia Becker DO, DO, Kathleen Start : 31-Mar-2019 Active Start: 03-17-2019 End: 01-25-2021 take 1 tablet by mouth once daily Diltiazem Hcl 360 MG tablet extended release 24 hr Discontinued 360 mg PO DAILY March 17, 2019 12:00am January 25, 2021 9:29am Start: 12-02-2018 take 1 capsule by mo ut once daily Cardizem CD 360 MG Oral Capsule Extended Release 24 Hour 1 (one) Capsule qd for 0 days Quantity: 30 {Capsule} Refills: 3 Ordered: 02-Dec-2018 Patricia Becker DO, DO, Kathleen Start : 02-Dec-2018 Active Start: 10-29-2018 take 1 capsule by mo ut once daily Cardizem CD 240 MG Oral Capsule Extended Release 24 Hour 1 (one) Capsule qd for 0 days Quantity: 30 {Capsule} Refills: 1 Ordered: 29-Oct-2018 Patricia Becker DO, DO, Kathleen Start : 29-Oct-2018 Active Start: 10-08-2018 take 1 capsule by mo [facility] once daily Cardizem CD 120 MG Oral Capsule Extended Release 24 Hour 1 (one) Capsule qd for 0 days Quantity: 30 {Capsule} Refills: 1 Ordered: 08-Oct-2018 Patricia Becker DO, DO, Kathleen Start : 08-Oct-2018 Active Comment on above: ? causing edema escitalopram 10 mg oral tablet (4 sources) Serotonin Reuptake Inhibitor Start: 2023 End: 2024 take 1 tablet by mouth once daily Escitalopram Oxalate 10 mg tablet Discontinued 10 mg PO daily April 01, 2024 12:00am November 05, 2024 9:16am hydroCHLOROthiazide 12.5 mg oral capsule (20 sources) Thiazide Diuretic Start: 2023 End: 2023 take 1 capsule by mouth once daily Hydrochlorothiazide 12.5 mg capsule Discontinued 12.5 mg PO DAILY August 07, 2023 1:00am August 09, 2023 3:54pm BLOOD PRESSURE Start: 02-11-2023 take 1 capsule by mo uth once daily hydroCHLOROthiazide 12.5 mg oral capsule 1 (one) Capsule daily for 90 days Quantity: 90 {Capsule} Refills: 3 Ordered: 11-Feb-2023 Rosita Patricia DO, Kathleen Start : 11-Feb-2023 Active Start: 02-26-2022 take 1 capsule by mo uth once daily hydroCHLOROthiazide 12.5 MG Oral Capsule 1 (one) Capsule daily for 90 days Quantity: 90 {Capsule} Refills: 3 Ordered: 26-Feb-2022 Rosita HANNAPatricia RositaPatricia guthrie DO Start : 26-Feb-2022 Active Start: 01-25-2021 End: 08-27-2023 take 1 tablet by mouth once daily Hydrochlorothiazide 12.5 mg tablet Discontinued 12.5 mg PO DAILY January 25, 2021 12:00am August 27, 2023 9:11pm BLOOD PRESSURE Start: 01-17-2021 take 1 capsule by mo uth once daily hydroCHLOROthiazide 12.5 MG Oral Capsule 1 (one) Capsule daily for 90 days Quantity: 90 {Capsule} Refills: 3 Ordered: 17-Jan-2021 Yola Hinds Start : 17-Jan-2021 Active Start: 01-06-2021 take 1 capsule by mo uth once daily hydroCHLOROthiazide 12.5 MG Oral Capsule 1 (one) Capsule daily for 90 days Quantity: 90 {Capsule} Refills: 3 Ordered: 06-Jan-2021 Yola Hinds CNP Start : 06-Jan-2021 Active Start: 01-01-2021 take 1 capsule by mo uth once daily hydroCHLOROthiazide 12.5 MG Oral Capsule 1 (one) Capsule daily for 0 days Quantity: 30 {Capsule} Refills: 0 Ordered: 01-Jan-2021 Yola Hinds CNP Start : 01-Jan-2021 Active Start: 12-09-2020 take 1 capsule by mo uth once daily hydroCHLOROthiazide 12.5 MG Oral Capsule 1 (one) Capsule daily for 0 days Quantity: 30 {Capsule} Refills: 0 Ordered: 09-Dec-2020 Elijah Chaves LPN Start : 09-Dec-2020 Active hydroCHLOROthiazide 25 mg / losartan potassium 100 mg oral tablet (20 sources) Thiazide Diuretic, Angiotensin 2 Receptor Percy Start: 07-27-2019 End: 08-31-2019 take 1 tablet by mouth once daily in the morning Losartan Potassium-HCTZ 100-25 MG Oral Tablet 1 (one) Tablet qam for 0 days Quantity: 30 {Tablet} Refills: 3 Ordered: 31-Aug-2019 Shaye Moreno CMA Start : 27-Jul-2019 End : 31-Aug-2019 Inactive ketorolac tromethamine 10 mg oral tablet (20 sources) Nonsteroidal Anti-inflammatory Drug, Cyclooxygenase Inhibitor Start: 07-06-2013 End: 07-09-2013 take 1 tablet by mouth every six hours KETOROLAC TROMETHAMINE, 10MG (Oral Tablet) 1 Tablet q 6hr for 3 days Quantity: 12 {Tablet} Refills: 0 Ordered: 06-Jul-2013 Yola Hinds Start : 06-Jul-2013 End : 09-Jul-2013 Inactive losartan potassium 25 mg oral tablet (20 sources) Angiotensin 2 Receptor Percy Start: 10-09-2023 End: 04-01-2024 take 2 tablets by mouth once daily Losartan 25 mg tablet Discontinued 50 mg PO DAILY October 09, 2023 10:55am April 01, 2024 10:54am BLOOD PRESSURE Start: 10-09-2023 take 1 tablet by marivel th twice daily Losartan 50 mg tablet Active 50 mg PO TWICE A DAY October 09, 2023 12:00am Start: 05-13-2023 take 1 tablet by marivel th once daily losartan 25 mg oral tablet 1 (one) Tablet daily for 0 days Quantity: 30 {Tablet} Refills: 6 Ordered: 13-May-2023 Patricia Becker DO, DO, Kathleen Start : 13-May-2023 Active Start: 08-16-2021 End: 10-09-2023 take 1 tablet by mouth once daily Losartan 25 mg tablet Discontinued 25 mg PO DAILY October 18, 2021 12:00am October 09, 2023 10:57am BLOOD PRESSURE Start: 01-17-2021 take 1 tablet by marivel th once daily Losartan Potassium 25 MG Oral Tablet 1 (one) Tablet daily for 0 days Quantity: 30 {Tablet} Refills: 6 Ordered: 17-Jan-2021 Yola Hinds CNP Start : 17-Jan-2021 Active Start: 12-16-2020 take 1 tablet by marivel th once daily Losartan Potassium 25 MG Oral Tablet 1 (one) Tablet daily for 0 days Quantity: 30 {Tablet} Refills: 6 Ordered: 16-Dec-2020 HermilaYola strong CNP Start : 16-Dec-2020 Active meclizine hydrochloride 25 mg oral tablet (20 sources) Antiemetic Start: 10-19-2021 End: 08-07-2023 take 1 tablet by mouth three times daily as needed for dizziness Meclizine 25 mg tablet Discontinued 25 mg PO THREE TIMES A DAY as needed for DIZZINESS October 19, 2021 10:35am August 07, 2023 8:58pm Comment on above: Medication taken as needed. meloxicam 15 mg oral tablet (20 sources) Nonsteroidal Anti-inflammatory Drug Start: 09-01-2013 End: 10-05-2013 take 1 tablet by mouth once daily MOBIC, 15MG (Oral Tablet) 1 (one) Tablet Tablet daily for 0 days Quantity: 14 {Tablet} Refills: 0 Ordered: 05-Oct-2013 Candice Jacobo CMA Start : 01-Sep-2013 End : 05-Oct-2013 Inactive methylPREDNISolone 4 mg oral tablet (20 sources) Corticosteroid Start: 12-24-2018 End: 07-27-2019 take 1 tablet by mouth once daily Medrol 4 MG Oral Tablet Therapy Pack uad Tablet qd until gone for 0 days Quantity: 1 {Package} Refills: 0 Ordered: 27-Jul-2019 Edwina Braden LPN Start : 24-Dec-2018 End : 27-Jul-2019 Inactive Start: 03-02-2014 End: 10-25-2014 take 1 tablet by mouth once MEDROL (LACY), 4MG (Oral Ta blet) uad Tablet qd per instructions for 0 days Quantity: 1 {Package} Refills: 0 Ordered: 25-Oct-2014 Little Cardenas LPN Start : 02-Mar-2014 End : 25-Oct-2014 Discontinued metoprolol tartrate 25 mg oral tablet (5 sources) beta-Adrenergic Percy Start: 09-20-2023 End: 10-09-2023 Metoprolol Tartrate 25 mg tablet Discontinued 12.5 mg PO TWICE A DAY September 20, 2023 1:00am October 09, 2023 11:44am Start: 09-20-2023 take 12.5 mg by mout h twice daily Metoprolol Tartrate Active 12.5 MG PO TWICE A DAY September 20, 2023 1:00am mometasone furoate 0.05 mg/actuat metered dose nasal spray (20 sources) Corticosteroid Start: 01-19-2015 End: 04-14-2015 NASONEX, 50MCG/ACT (Nasal Suspension) 2 (two) Puff daily for 0 days Quantity: 1 {Bottle} Refills: 0 Ordered: 14-Apr-2015 JJ Lee LPN Start : 19-Jan-2015 End : 14-Apr-2015 Inactive oseltamivir 75 mg oral capsule (20 sources) Neuraminidase Inhibitor Start: 11-11-2013 End: 11-16-2013 take 1 capsule by mouth twice daily TAMIFLU, 75MG (Oral Capsule) 1 (one) Capsule bid for 5 days Quantity: 10 {Capsule} Refills: 0 Ordered: 11-Nov-2013 HermilaYola strong Start : 11-Nov-2013 End : 16-Nov-2013 Inactive 24 hr oxybutynin chloride 10 mg extended release oral tablet (20 sources) Cholinergic Muscarinic Antagonist Start: 12-09-2020 End: 04-25-2021 take 1 tablet by mouth once daily Oxybutynin Chloride ER 10 MG Oral Tablet Extended Release 24 Hour 1 (one) Tablet daily for 0 days Quantity: 90 {Tablet} Refills: 0 Ordered: 25-Apr-2021 Valarie Goodman LPN Start : 09-Dec-2020 End : 25-Apr-2021 Inactive oxyCODONE hydrochloride 5 mg oral capsule (5 sources) Opioid Agonist Start: 09-20-2023 End: 10-09-2023 take 1 capsule by mouth every six hours as needed Oxycodone 5 mg capsule Discontinued 5 mg PO EVERY 6 HOURS as needed 0 September 20, 2023 1:00am October 09, 2023 10:57am phenazopyridine hydrochloride 200 mg oral tablet (20 sources) Start: 04-21-2019 End: 05-06-2019 take 1 tablet by mouth three times daily as needed for muscle spasms Phenazopyridine 200 MG tablet Discontinued 200 mg PO 3 TIMES DAILY NEEDED as needed for Bladder Spasms 30 7 0 April 21, 2019 12:00am April 27, 2019 12:00am May 06, 2019 12:07am Start: 03-24-2019 End: 03-31-2019 take 1 tablet by mouth three times daily as needed for muscle spasms Phenazopyridine 200 MG tablet Discontinued 200 mg PO 3 TIMES DAILY NEEDED as needed for Bladder Spasms 30 7 0 March 24, 2019 12:00am March 30, 2019 12:00am March 31, 2019 12:07am phentermine hydrochloride 37.5 mg oral capsule (20 sources) Sympathomimetic Amine Anorectic Start: 04-29-2023 take 1 capsule by mouth once daily in the morning Adipex-P 37.5 mg oral capsule 1 (one) Capsule daily in the morning for 30 days Quantity: 30 {Capsule} Refills: 0 Ordered: 29-Apr-2023 Patricia Becker DO, DO, Kathleen Start : 29-Apr-2023 Active Comments: BMI: 41.0OAARS reviewed last filled 03-25-23 for 30 dayswt 238BMI 40 Start: 03-25-2023 take 1 capsule by mo ut once daily in the morning Adipex-P 37.5 mg oral capsule 1 (one) Capsule daily in the morning for 30 days Quantity: 30 {Capsule} Refills: 0 Ordered: 25-Mar-2023 Patricia Becker DO, DO, Kathleen Start : 25-Mar-2023 Active Comments: bmi 42bmi 40wt 247wt 243oarrs reviewed Start: 02-25-2023 take 1 capsule by mo uth once daily in the morning Adipex-P 37.5 mg oral capsule 1 (one) Capsule daily in the morning for 30 days Quantity: 30 {Capsule} Refills: 0 Ordered: 25-Feb-2023 Patricia Becker DO, DO, Kathleen Start : 25-Feb-2023 Active Comments: bmi 42wt 247oarrs reviewed Start: 02-22-2022 End: 03-24-2022 take 1 capsule by mouth once daily in the morning Adipex-P 37.5 MG Oral Capsule 1 (one) Capsule daily in the morning for 30 days Quantity: 30 {Capsule} Refills: 0 Ordered: 22-Feb-2022 Patricia Becker DO, DO, Kathleen Start : 22-Feb-2022 End : 24-Mar-2022 Inactive Comments: bmi 41wt 242 oarrs reviewed and called to pharm kt garciaaoarrs reviewed and called to pharm 02/22/22 wt 242 mima garcia Start: 01-24-2022 take 1 capsule by [facility] once daily in the morning Adipex-P 37.5 MG Oral Capsule 1 (one) Capsule daily in the morning for 30 days Quantity: 30 {Capsule} Refills: 0 Ordered: 05-Feb-2022 Patricia Becker DO, DO, Kathleen Start : 24-Jan-2022 Active Comments: bmi 41wt 242 oarrs reviewed and called to pharm mima garcia Comment on above: bmi 41wt 242 oarrs r eviewed and called to pharm mima garcia bmi 41wt 242 oarrs r eviewed and called to pharm kt garciaaoarrs reviewed and called to pharm 02/22/22 wt 242 mima garcia bmi 42wt 247oarrs re viewed bmi 42bmi 40wt 247wt 243oarrs reviewed BMI: 41.0OAARS revie wed last filled 03-25-23 for 30 dayswt 238BMI 40 predniSONE 20 mg oral tablet (20 sources) Start: 10-25-2022 End: 10-31-2022 predniSONE 20 mg oral tablet 1 (one) Tablet bid for 2days then 1 tab for 2 days then 1/2 tab for 2 days and stop for 6 days Quantity: 7 {Tablet} Refills: 0 Ordered: 25-Oct-2022 Patricia Becker DO, DO, Kathleen Start : 25-Oct-2022 End : 31-Oct-2022 Inactive Start: 06-27-2022 End: 07-07-2022 predniSONE 20 mg oral tablet 1 (one) Tablet bid for 3 days then 1 tab for 3 days then 1/2 tab for 4 days and stop for 10 days Quantity: 11 {Tablet} Refills: 0 Ordered: 27-Jun-2022 Deedee Cruz CNP Start : 27-Jun-2022 End : 07-Jul-2022 Inactive Start: 01-18-2022 End: 01-24-2022 predniSONE 20 MG Oral Tablet 1 (one) Tablet bid for 3 days then 1 tab for 3 days then 1/2 tab for 4 days and stop for 10 days Quantity: 13 {Tablet} Refills: 0 Ordered: 24-Jan-2022 Edwina Braden LPN Start : 18-Jan-2022 End : 24-Jan-2022 Inactive Start: 04-14-2015 End: 04-23-2015 take 2 tablets by mouth once daily, then take 1 tablet by mouth once daily, then take 0.5 tablet by mouth once daily PREDNISONE, 20MG (Oral Tablet) 1 (one) Tablet uad for 9 days Refills: 0 Ordered: 14-Apr-2015 Makayla Agustin MD Start : 14-Apr-2015 End : 23-Apr-2015 Inactive Comments: 2 a d for 3 d, 1 a d for 3d, 1/2 a d for 3 d Comment on above: 2 a d for 3 d, 1 a d for 3d, 1/2 a d for 3 d propranolol hydrochloride 20 mg oral tablet (10 sources) beta-Adrenergic Percy Start: 10-09-19 24 End: 02-26-20 25 take 1 tablet by mouth three times daily Propranolol 20 mg tablet Discontinued 20 mg PO THREE TIMES A DAY 90 11 January 31, 2024 1:27pm February 25, 2025 8:56am Atrial fibrillation Unspecified atrial fibrillation sulfacetamide sodium 100 mg/ml ophthalmic solution (20 sources) Sulfonamide Antibacterial Start: 10-06-19 14 End: 10-13-19 14 BLEPH-10, 10% (Ophthalmic Solution) 1 (one) Solution 1-2n drops q2-3 hrs for 7 days Quantity: 1 {Bottle} Refills: 0 Ordered: 05-Oct-2013 HermilaYola strong Start : 05-Oct-2013 End : 12-Oct-2013 Inactive vitamin b12 2.5 mg sublingual tablet (20 sources) Vitamin B12 Start: 11-24-19 22 take 1 tablet under the tongue three times weekly Cyanocobalamin 2500 MCG Sublingual Tablet Sublingual 1 (one) Tablet 3 times weekly for 0 days Quantity: 30 {Tablet} Refills: 3 Ordered: 23-Nov-2021 Patricia Becker DO, DO, Kathleen Start : 23-Nov-2021 Active Start: 11-23-2021 take 1 tablet under the tongue three times weekly Cyanocobalamin 2500 MCG Sublingual Tablet Sublingual 1 (one) Tablet 3 times weekly for 0 days Quantity: 30 {Tablet} Refills: 3 Ordered: 23-Nov-2021 Patricia Becker DO, DO, Kathleen Start : 23-Nov-2021 Active Start: 10-18-2021 Cyanocobalamin (Vitamin B-12) (Vitamin B-12) 2,500 mcg tablet, sublingual Active 2500 ug PO October 18, 2021 12:00am SUPPLEMENT Start: 10-18-2021 take 1 tablet by mouth once Cy anocobalamin (Vitamin B-12) (Vitamin B-12) 2,500 mcg tablet, sublingual Active 2500 MCG PO every Saturday, Saturday, and Sunday October 17, 2021 11:00pm Start: 12-16-2020 take 1 tablet under the tongue three times weekly Cyanocobalamin 2500 MCG Sublingual Tablet Sublingual 1 (one) Tablet 3 times weekly for 0 days Quantity: 30 {Tablet} Refills: 3 Ordered: 16-Dec-2020 Elijah Chaves LPN Start : 16-Dec-2020 Active Vitamin K2-Vitamin D3 45-200 0 MCG-UNIT Oral Capsule (12 sources) Start: 12-16-2020 Vitamin K2-Vit walker D3 45-2000 MCG-UNIT Oral Capsule 1 (one) Capsule 3 x weekly for 0 days Quantity: 60 {Capsule} Refills: 0 Ordered: 17-Jan-2021 Elijah Chaves LPN Start : 16-Dec-2020 Active Start: 12-16-2020 Vitamin K2-Vit walker D3 45-2000 MCG-UNIT Oral Capsule 1 (one) Capsule 3 x weekly for 0 days Quantity: 60 {Capsule} Refills: 0 Ordered: 16-Dec-2020 Yola Hinsd CNP Start : 16-Dec-2020 Active Vitamin K2-Vitamin D3 45-200 0 MCG-UNIT Oral Capsule (20 sources) Start: 12-16-2020 Vitamin K2-Vit walker D3 45-2000 MCG-UNIT Oral Capsule 1 (one) Capsule 3 x weekly for 0 days Quantity: 60 {Capsule} Refills: 0 Ordered: 17-Jan-2021 Elijah Chaves LPN Start : 16-Dec-2020 Active NEGATED: Highlighted row has not occurred!drug or medication (12 sources) No Known Histori corrina Medications NEGATED: Highlighted row has not occurred!No Known Historical Medications (20 sources) No Known Histori corrina Medications Problems Active Problems Problem Classification Problem Date Documented Date Episodic/Chronic Abdominal pain (20 sources) Flank pain; Translations: [Flank pain] Resolved: 04-14-2015 04-14-2015 Episodic Acute cerebrovascular disease (12 sources) Cerebrovascular accident; Translations: [Cerebral infarction, unspecified] 08-08-2023 Chronic Anxiety disorders (12 sources) Acute stress disorder; Translations: [Stress reaction] 04-29-2023 Chronic Calculus of urinary tract (20 sources) Calculus of kidney and ureter ; Translations: [Calculus of kidney with calculus of ureter] 05-05-2019 Episodic Cardiac dysrhythmias (20 sources) Ventricular premature beats; Translations: [Ventricular premature depolarization] Onset: 11-05-2024 01-25-2021 Chronic Comment on above: The patient has docu mented paroxysmal atrial fibrillation on a 30-day event recorder. She had 5 episodes 1 of which she was aware of. She has tolerated the medical regiment without any nuisance bleeding. She remains on Eliquis and aspirin. There is no evidence of atherosclerotic disease she has no carotid bruits and her stress test was negative for ischemia. She does complain of a tremor as her major complaint today of her right hand. This may be better treated with propranolol than metoprolol. Cardiac dysrhythmias (20 sources) Palpitations; Translations: [Palpitation] 12-09-2020 Episodic Chronic kidney disease (20 sources) Chronic kidney disease stage 3; Translations: [CKD stage G3b/A1, GFR 30-44 and albumin creatinine ratio <30 mg/g] 12-16-2020 Chronic Comment on above: Seeing Dr. Gonzales Seeing Jamaal Kaur 2021 GFR is 39% has atrophic rt kidney. Chronic kidney disease (20 sources) Chronic kidney disease Chronic obstructive pulmonary disease and bronchiectasis (20 sources) Bronchitis; Translations: [Bronchitis] Resolved: 10-08-2018 04-14-2015 Episodic Chronic obstructive pulmonary disease and bronchiectasis (20 sources) Chronic obstructive pulmonary disease and bronchiectasis Complication of device; implant or graft (15 sources) Migration of urinary stent; Translations: [Displacement of indwelling ureteral stent, initial encounter] 05-05-2019 Episodic Complications of surgical procedures or medical care (20 sources) Drug therapy finding; Translations: [Medication side effect] 10-01-2019 Episodic Conditions associated with dizziness or vertigo (20 sources) Benign paroxysmal positional vertigo; Translations: [BPV (benign positional vertigo), bilateral] Resolved: 10-29-2018 10-08-2018 Episodic Comment on above: on meclizine, was ho spitalized 10-18-[address], sent homeon meclizine and head exercises Conditions associated with dizziness or vertigo (20 sources) Conditions associated with dizziness or vertigo Deficiency and other anemia (20 sources) Anemia; Translations: [Anemia] 10-24-2021 Episodic Comment on above: hemoglobin is 11.5 l abs pending, colonsocopy next year Diabetes mellitus without complication (20 sources) Impaired fasting glycemia; Translations: [Impaired fasting glucose] 12-16-2020 Episodic Comment on above: will get A1c in 3 we eks Essential hypertension (20 sources) Benign hypertension; Translations: [HTN (hypertension), benign] Onset: 11-05-2024 10-08-2018 Chronic Comment on above: ekg done in ER controlled on losart an hctz controlled on losart an hctz, says she is taking it Patient's blood pres sure is elevated in the office today but she brought in a list of blood pressures showed 140 - 156 systolic and 70-81 diastolic at home. Fever of unknown origin (20 sources) Fever with chills; Translations: [Fever and chills] Resolved: 10-08-2018 10-08-2018 Episodic Fluid and electrolyte disorders (20 sources) Hyperkalemia; Translations: [Hyperkalemia] Resolved: 01-24-2022 12-01-2018 Episodic Comment on above: needs to drink more water Genitourinary symptoms and ill-defined conditions (20 sources) Blood in urine; Translations: [Microscopic hematuria] Onset: 03-03-2025 Resolved: 04-14-2015 04-14-2015 Episodic Comment on above: history of stone pricilla pect stone chronic - w/u shown- 2embedded kidney stones -- cant retrieve and bladder scope normal 2016 Gout and other crystal arthropathies (20 sources) Gout; Translations: [Gout] 06-27-2022 Chronic Headache; including migraine (12 sources) Migraine; Translations: [Migraine without status migrainosus, not intractable, unspecified migraine type] 04-29-2023 Chronic Headache; including migraine (20 sources) Headache; including migraine Heart valve disorders (15 sources) Non-rheumatic mitral valve stenosis; Translations: [Nonrheumatic mitral (valve) stenosis] 01-25-2021 Chronic Immunizations and screening for infectious disease (20 sources) Contact with and (suspected) exposure to other viral communicable diseases; Translations: [Need for prophylactic vaccination and inoculation against influenza] Resolved: 04-14-2015 04-14-2015 Episodic Inflammation; infection of eye (except that caused by tuberculosis or sexually transmitteddisease) (20 sources) Serous conjunctivitis; Translations: [Acute conjunctivitis] Resolved: 04-14-2015 06-15-2015 Episodic Mood disorders (20 sources) Dysthymia; Translations: [Dysthymic] 08-06-2017 Chronic Comment on above: situational. dealing with dtr Madelin crack addict. grandson went to and now back to self. and home now.still clean. doing better on wellbutrin. took leave from 08-11 and thinking now will not go back to work. Nephritis; nephrosis; renal sclerosis (20 sources) Atrophy of kidney; Translations: [Atrophic kidney] 10-24-2021 Chronic Nonmalignant breast conditions (20 sources) Cyst of right breast; Translations: [Breast cyst, right] 05-30-2021 Episodic Nutritional deficiencies (20 sources) Vitamin D deficiency; Translations: [Vitamin D insufficiency] 12-16-2020 Chronic Nutritional deficiencies (20 sources) Cobalamin deficiency; Translations: [Vitamin B12 deficiency] 12-16-2020 Episodic Osteoarthritis (20 sources) Chronic osteoarthritis; Translations: [Osteoarthritis, chronic] Onset: 12-23-2024 02-25-2023 Chronic Other aftercare (1 source) Encounter for therapeutic drug level monitoring; Translations: [Encounter for therapeutic drug level monitoring] Onset: 03-03-2025 Episodic Other bone disease and musculoskeletal deformities (20 sources) Osteopenia; Translations: [Osteopenia] 05-30-2021 Episodic Comment on above: not on calcium becau se of kidney stones does take Vitamin D3 withK Other circulatory disease (20 sources) Elevated blood-pressure reading without diagnosis of hypertension; Translations: [Elevated blood-pressure reading without diagnosis of hypertension] Resolved: 10-08-2018 10-08-2018 Episodic Comment on above: recheck better DBP Other connective tissue disease (20 sources) Pes anserinus bursitis of left knee; Translations: [Pes anserinus bursitis of left knee] 10-25-2022 Episodic Other connective tissue disease (9 sources) Neurological symptom; Translations: [Unspecified symptoms and signs involving the nervous system] 08-07-2023 Episodic Other connective tissue disease (5 sources) Unspecified symptoms and signs involving the nervous system; Translations: [Other symptoms involving nervous and musculoskeletal systems] 08-07-2023 Episodic Other diseases of bladder and urethra (20 sources) Spasm of bladder; Translations: [Bladder spasm] 12-09-2020 Chronic Other endocrine disorders (20 sources) Hypoglycemia; Translations: [Hypoglycemia] 03-08-2022 Chronic Other endocrine disorders (1 source) Disorder of adrenal gland, unspecified; Translations: [Disorder of adrenal gland, unspecified] Onset: 03-04-2025 Chronic Other eye disorders (20 sources) Red eye; Translations: [Red eye] Resolved: 04-14-2015 04-14-2015 Episodic Other female genital disorders (1 source) Abnormal uterine and vaginal bleeding, unspecified; Translations: [Abnormal uterine and vaginal bleeding, unspecified] Onset: 03-05-2025 Chronic Other lower respiratory disease (20 sources) Cough; Translations: [Cough] Resolved: 10-08-2018 10-08-2018 Episodic Other lower respiratory disease (20 sources) Wheezing; Translations: [Wheezing] 08-06-2017 Episodic Other nervous system disorders (5 sources) Tremor; Translations: [Tremor, unspecified] 09-20-2023 Episodic Other non-traumatic joint disorders (20 sources) Knee pain; Translations: [Knee Pain (Renamed from Arthralgia of knee)] Resolved: 10-08-2018 10-08-2018 Episodic Comment on above: think MCL sprain. be tter much since last seen. walkign on tredmil alot 45 min. not think need PT. use brace help Other non-traumatic joint disorders (20 sources) Pain in left knee; Translations: [Acute pain of left knee] Onset: 12-23-2024 10-25-2022 Episodic Other nutritional; endocrine; and metabolic disorders (20 sources) Obesity; Translations: [Obesity] 08-06-2017 Chronic Comment on above: doing well and loosi ng weight. Other nutritional; endocrine; and metabolic disorders (20 sources) Body mass index 40+ - severely obese; Translations: [BMI 40.0-44.9, adult] Resolved: 04-25-2021 08-06-2017 Chronic Other nutritional; endocrine; and metabolic disorders (20 sources) Body mass index 30+ - obesity; Translations: [BMI 39.0-39.9,adult] Resolved: 10-25-2022 11-05-2018 Chronic Other nutritional; endocrine; and metabolic disorders (20 sources) Morbid obesity; Translations: [Morbid obesity] 01-24-2022 Chronic Comment on above: bmi 40 02/05/22 Other nutritional; endocrine; and metabolic disorders (20 sources) Weight gain; Translations: [Weight gain] 12-01-2018 Episodic Comment on above: wt gain /derpression -- chicken or egg Other screening for suspected conditions (not mental disorders or infectious disease) (1 source) Abnormal findings on diagnostic imaging of other specified body structures; Translations: [Abnormal findings on diagnostic imaging of other specified body structures] Onset: 03-03-2025 Chronic Other screening for suspected conditions (not mental disorders or infectious disease) (20 sources) Patient encounter status; Translations: [Screening for hyperlipidemia] Resolved: 10-08-2018 10-08-2018 Episodic Comment on above: PVc's Other skin disorders (20 sources) Disorder of nail; Translations: [Nail abnormalities] 12-09-2020 Episodic Other upper respiratory disease (20 sources) Allergic rhinitis; Translations: [Allergic rhinitis] Resolved: 10-08-2018 10-08-2018 Chronic Other upper respiratory infections (20 sources) Chronic sinusitis, unspecified; Translations: [Bacterial sinusitis] Resolved: 10-08-2018 10-08-2018 Chronic Other upper respiratory infections (20 sources) Sinusitis; Translations: [Sinusitis] 10-08-2018 Episodic Pulmonary heart disease (20 sources) Pulmonary hypertension; Translations: [Pulmonary HTN] 10-08-2018 Chronic Comment on above: Sibila appt next wee k 11/14 Sibila appt next wee k 11/14on CCB for pulm htn but stopping it to see if drug side effect and may need to see if he is ok with stopping it bc of pulm htn-- pt already had echo Residual codes; unclassified (20 sources) Obstructive sleep apnea syndrome; Translations: [JESUS (obstructive sleep apnea)] 12-01-2018 Chronic Comment on above: Sibila managing -new 2018 Need to make certain the patient's effectively treated for struct of sleep apnea her CPAP machine has not been titrated or adjusted or evaluated in the last 1 to 2 years consideration may be given for having this tested. Residual codes; unclassified (1 source) Obstructive sleep apnea (adult) (pediatric); Translations: [Obstructive sleep apnea (adult) (pediatric)] Onset: 11-05-2024 Chronic Residual codes; unclassified (20 sources) Needs influenza immunization; Translations: [Need for prophylactic vaccination and inoculation against influenza (Renamed from Need for immunization against influenza)] 09-20-2016 Episodic Residual codes; unclassified (20 sources) Localized edema; Translations: [Edema of extremity] 11-05-2018 Episodic Comment on above: mediation side efect ?-- ciold decrease CCB adn add second bp rx --jones hose with age and over wt mediation side efect ?-- decrease CCB adn add second bp rx --jones hose with age and over wt resolved withe stopp ing CCB -- and using cpap-mediation side efect?-- decrease CCB and add second bp rx --jones hose with age and over wtworking on wt loss, will wear support stockings-- pt already had echo Residual codes; unclassified (20 sources) Non-smoker; Translations: [Non-smoker] 10-01-2019 Episodic Residual codes; unclassified (20 sources) Postmenopausal state; Translations: [Postmenopausal (Renamed from Postmenopausal status)] 05-30-2021 Episodic Residual codes; unclassified (6 sources) Flushing; Translations: [Flushing] 08-27-2023 Episodic Residual codes; unclassified (4 sources) Edema, generalized; Translations: [Generalized edema] 12-23-2024 Episodic Respiratory failure; insufficiency; arrest (adult) (20 sources) Respiratory failure; insufficiency; arrest (adult) Thyroid disorders (1 source) Nontoxic single thyroid nodule; Translations: [Nontoxic single thyroid nodule] Onset: 03-05-2025 Chronic Transient cerebral ischemia (10 sources) Transient cerebral ischemia; Translations: [Transient cerebral ischemic attack, unspecified] 08-12-2023 Chronic Unclassified (20 sources) Unclassified (20 sources) Non-smoker; Translations: [Non-smoker] 08-06-2017 Unclassified (20 sources) HTN (hypertension), benign Unclassified (20 sources) BMI 39.0-39.9,adult Unclassified (20 sources) JESUS (obstructive sleep apnea) Unclassified (20 sources) BRONCHITIS, NOT SPECIFIED ACUTE OR CHRONIC (490.) Unclassified (8 sources) Encounter for screening mammogram for breast cancer (Renamed from Encounter for screening mammogram for malignant neoplasm of breast) Unclassified (8 sources) Postmenopausal (Renamed from Postmenopausal status) Unclassified (8 sources) Encounter for screening for malignant neoplasm of colon (Renamed from Special screening for malignant neoplasms, colon) Unclassified (6 sources) Atrophic kidney Unclassified (4 sources) Nutritional counseling Unclassified (8 sources) Osteoarthritis of left knee; Translations: [M17.12 - Unilateral primary osteoarthritis, left knee] Urinary tract infections (20 sources) Urinary tract infectious disease; Translations: [Lower urinary tract infectious disease] Resolved: 04-14-2015 06-21-2015 Episodic Comment on above: MUG but >100,000 so will treat as if uti since stone Past or Other Problems Problem Classification Problem [...] (20 sources) WWV V73.21 Resolved: 04-14-2015 04-14-2015 Comment on above: mammo due dec had pa p february. Unclassified (20 sources) Pregnancies (); Translations: [Pregnancies ()] 08-06-2017 Comment on above: 2 Unclassified (20 sources) Unspecified Diagnosis Resolved: 04-14-2015 04-14-2015 Unclassified (20 sources) Elevated Blood Pressure without diagnosis of Hypertension (796.2) Unclassified (20 sources) Deliveries (Parity); Translations: [Deliveries (Parity)] 08-06-2017 Comment on above: 2 Unclassified (20 sources) Bacterial sinusitis Unclassified (11 sources) Patient encounter status; Translations: [Screening for hyperlipidemia] Resolved: 10-08-2018 10-08-2018 Unclassified (20 sources) BMI 40.0-44.9, adult Unclassified (20 sources) Pulmonary HTN Unclassified (20 sources) Edema extremities Unclassified (20 sources) Hematuria, microscopic Unclassified (20 sources) Weight gain Unclassified (20 sources) Drug therapy finding; Translations: [Medication side effect] 10-01-2019 Unclassified (1 source) Screening status; Translations: [Screening for hyperlipidemia] Resolved: 10-08-2018 10-08-2018 Unclassified (20 sources) BPV (benign positional vertigo), bilateral Unclassified (20 sources) Dysthymic Unclassified (20 sources) Depression/Anxiety (300.4) Unclassified (20 sources) Bladder spasm Unclassified (20 sources) Palpitation Unclassified (20 sources) Nail abnormalities Unclassified (19 sources) Abnormal Holter exam Unclassified (14 sources) Serum potassium elevated Unclassified (8 sources) Breast cyst, right Urinary tract infections (20 sources) Urinary tract infections Results Test Name Value Interpretation Reference Range Facility Urine Cultureon 2025 [facility] Klebsiella oxytoca Crawford Count 11,000-25,000 Mixed Gram Positive Organisms Mixed Gram Positive Organisms MIXC Mixed contaminants. Submit a new specimen if indicated. Klebsiella oxytoca: REACTION Ampicillin Islt KRISTYN >=32 Ampicillin+Sulbac Islt KRISTYN 4 S Cefepime Islt KRISTYN <=0.12 cefTRIAXone Islt KRISTYN <=0.25 S Ciprofloxacin Islt KRISTYN <=0.06 S B-Lactamase Extended Susc Islt NEG Gentamicin Islt KRISTYN <=1 S levoFLOXacin Islt KRISTYN <=0.12 S Meropenem Islt KRISTYN <=0.25 S Nitrofurantoin Islt KRISTYN 32 S Pip+Tazo Islt KRISTYN <=4 S TMP SMX Islt KRISTYN <=20 S Normal [facility] Comment on above: Performed By: #### L 100.0100, L500.4050, L506.0400, L501.6710, L101.9900, M100.2200, L501.52651, L501.9520 ####[facility] [id number] [place], [place], [id number] Absolute lymphocyte countOrd ered By: Patricia Becker on 03-03-2025 Lymphocytes Auto (Unsp spec) [#/Vol] 1.49 10*3/uL 0.83-4.51 [facility] Absolute neutrophil countOrd ered By: Patricia Becker on 03-03-2025 Neutrophils (Bld) [#/Vol] 4.8 10*3/uL 2.0-7.7 [facility] Anion gap in Serum or Plasma Ordered By: Patricia Becker on 03-03-2025 Anion gap [Moles/Vol] 12 mmol/L 5-[address] [facility] Automated lymphocyte count a s percentage of total leukocytesOrdered By: Patricia Becker on 03-03-2025 Lymphocytes/100 WBC Auto (Unsp spec) 21.8 % 19-41 [facility] BUN/creatinine ratioOrdered By: Patricia Becker on 03-03-2025 Urea nitrogen/Creatinine [Mass ratio] 16.5 mg/mg 10-20 [facility] Basophil percentageOrdered B y: Patricia Becker on 03-03-2025 Basophils/100 WBC (Bld) 0.3 % 0-1 [facility] Bilirubin, totalOrdered By: Patricia Becker on 03-03-2025 Bilirubin [Mass/Vol] 0.64 mg/dL 0.00-1.30 [facility] CBC W/Diff, Automatedon Absolute Lymph 1.49 X10 3/uL Normal 0.83-4.51 [facility] Comment on above: Performed By: #### L 100.0100, L500.4050, L506.0400, L501.6710, L101.9900, M100.2200, L501.96066, L501.9520 #### [facility] [address] [place], [address] Absolute Neut 4.8 X10 3/uL Normal 2.0-7.7 [facility] Comment on above: Performed By: #### L 100.0100, L500.4050, L506.0400, L501.6710, L101.9900, M100.2200, L501.83345, L501.9520 #### [facility] [address] [place], [address] Basophils/100 WBC (Bld) 0.3 % Normal 0-1 [facility] Comment on above: Performed By: #### L 100.0100, L500.4050, L506.0400, L501.6710, L101.9900, M100.2200, L501.60089, L501.9520 #### [facility] [facility] [address] [place], [address] Eosinophils/100 WBC (Bld) 1.9 % Normal 0-5 [facility] Comment on above: Performed By: #### L 100.0100, L500.4050, L506.0400, L501.6710, L101.9900, M100.2200, L501.78567, L501.9520 #### [facility] [address] [place], [address] Erythrocyte distribution width (RBC) [Ratio] 14.4 % Normal 11.6-14.6 [facility] Comment on above: Performed By: #### L 100.0100, L500.4050, L506.0400, L501.6710, L101.9900, M100.2200, L501.12207, L501.9520 #### [facility] [address] [place], [address] Hematocrit (Bld) [Volume fraction] 35.1 % Low 37-47 [facility] Comment on above: Performed By: #### L 100.0100, L500.4050, L506.0400, L501.6710, L101.9900, M100.2200, L501.26698, L501.9520 #### [facility] [address] [place], [address] Hemoglobin (Bld) [Mass/Vol] 11.0 g/dL Low 12.0-15.0 [facility] Comment on above: Performed By: #### L 100.0100, L500.4050, L506.0400, L501.6710, L101.9900, M100.2200, L501.69782, L501.9520 #### [facility] [address] [place], [address] IG% 0.400 Normal 0.0-0.9 [facility] Comment on above: Result Comment: IG% - Immature Granulocytes (promyelocytes, myelocytes and metamyelocytes) > 1% indicates that a LEFT SHIFT is Present. Performed By: #### L 100.0100, L500.4050, L506.0400, L501.6710, L101.9900, M100.2200, L501.25974, L501.9520 #### [facility] [address] [place], [address] Lymphocytes/100 WBC (Bld) 21.8 % Normal 19-41 [facility] Comment on above: Performed By: #### L 100.0100, L500.4050, L506.0400, L501.6710, L101.9900, M100.2200, L501.43626, L501.9520 #### [facility] [address] [place], [address] MCH (RBC) [Entitic mass] 27.6 pg Normal 27.0-32.0 [facility] Comment on above: Performed By: #### L 100.0100, L500.4050, L506.0400, L501.6710, L101.9900, M100.2200, L501.74271, L501.9520 #### [facility] [address] [place], [address] MCHC (RBC) [Mass/Vol] 31.3 g/dL Low 32-[address] [facility] Comment on above: Performed By: #### L 100.0100, L500.4050, L506.0400, L501.6710, L101.9900, M100.2200, L501.15554, L501.9520 #### [facility] [address] [place], [address] MCV (RBC) [Entitic vol] 88.0 fL Normal 81-99 [facility] Comment on above: Performed By: #### L 100.0100, L500.4050, L506.0400, L501.6710, L101.9900, M100.2200, L501.78270, L501.9520 #### [facility] [address] [place], [address] Monocytes/100 WBC (Bld) 5.9 % Normal 0-10 [facility] Comment on above: Performed By: #### L 100.0100, L500.4050, L506.0400, L501.6710, L101.9900, M100.2200, L501.45617, L501.9520 #### [facility] [address] [place], [address] Neutrophils/100 WBC (Bld) 69.7 % Normal 47-70 [facility] Comment on above: Performed By: #### L 100.0100, L500.4050, L506.0400, L501.6710, L101.9900, M100.2200, L501.15224, L501.9520 #### [facility] [address] [place], [address] Nucleated RBC (Bld) [#/Vol] 0 10*3/uL Normal 0-5 [facility] Comment on above: Performed By: #### L 100.0100, L500.4050, L506.0400, L501.6710, L101.9900, M100.2200, L501.34614, L501.9520 #### [facility] [address] [place], [address] Platelet mean volume (Bld) [Entitic vol] 10.0 fL Normal 6.2-12.0 [facility] Comment on above: Performed By: #### L 100.0100, L500.4050, L506.0400, L501.6710, L101.9900, M100.2200, L501.37174, L501.9520 #### [facility] [address] [place], [address] Platelets (Bld) [#/Vol] 226 10*3/uL Normal 150-450 [facility] Comment on above: Performed By: #### L 100.0100, L500.4050, L506.0400, L501.6710, L101.9900, M100.2200, L501.37964, L501.9520 #### [facility] [address] [place], [address] RBC (Bld) [#/Vol] 3.99 10*6/uL Low 4.2-5.4 [facility] Comment on above: Performed By: #### L 100.0100, L500.4050, L506.0400, L501.6710, L101.9900, M100.2200, L501.76391, L501.9520 #### [facility] [address] [place], [address] RDW SD 46.6 fl High 35.1-43.9 [facility] Comment on above: Performed By: #### L 100.0100, L500.4050, L506.0400, L501.6710, L101.9900, M100.2200, L501.91412, L501.9520 #### [facility] [address] [place], [address] WBC (Bld) [#/Vol] 6.8 10*3/uL Normal 4.4-11.0 [facility] Comment on above: Performed By: #### L 100.0100, L500.4050, L506.0400, L501.6710, L101.9900, M100.2200, L501.17162, L501.9520 #### [facility] [address] [place], [address] CRPon 03-03-2025 C-REACTIVE PROT 9.36 mg/L High 0.0-3.0 [facility] Comment on above: Performed By: #### L 100.0100, L500.4050, L506.0400, L501.6710, L101.9900, M100.2200, L501.65459, L501.9520 #### [facility] [address] [place], [address] Carbon dioxide, total [Moles /volume] in Central venous bloodOrdered By: Patricia Becker on 03-03-2025 CO2 [Moles/Vol] 21.9 mmol/L 21.0-32.0 [facility] Chloride assayOrdered By: Talon Becker on 03-03-2025 Chloride [Moles/Vol] 109 mmol/L High 98-108 [facility] Comprehensive Metabolic Prof ilon 03-03-2025 Albumin [Mass/Vol] 4.0 g/dL Normal 3.4-4.8 [facility] Comment on above: Performed By: #### L 100.0100, L500.4050, L506.0400, L501.6710, L101.9900, M100.2200, L501.35465, L501.9520 #### [facility] [address] [place], [address] Albumin/Globulin [Mass ratio] 1.3 {ratio} Normal 0.9-2.4 [facility] Comment on above: Performed By: #### L 100.0100, L500.4050, L506.0400, L501.6710, L101.9900, M100.2200, L501.77223, L501.9520 #### [facility] [address] [place], [address] ALK PHOS 123 U/L High 35-104 [facility] Comment on above: Performed By: #### L 100.0100, L500.4050, L506.0400, L501.6710, L101.9900, M100.2200, L501.74112, L501.9520 #### [facility] [address] [place], [address] ALT [Catalytic activity/Vol] 14 U/L Normal <=34 [facility] Comment on above: Performed By: #### L 100.0100, L500.4050, L506.0400, L501.6710, L101.9900, M100.2200, L501.97205, L501.9520 #### [facility] [address] [place], [address] AST [Catalytic activity/Vol] 18 U/L Normal <=31 [facility] Comment on above: Performed By: #### L 100.0100, L500.4050, L506.0400, L501.6710, L101.9900, M100.2200, L501.32589, L501.9520 #### [facility] [address] [place], [address] Bilirubin [Mass/Vol] 0.64 mg/dL Normal 0.00-1.30 [facility] Comment on above: Performed By: #### L 100.0100, L500.4050, L506.0400, L501.6710, L101.9900, M100.2200, L501.69315, L501.9520 #### [facility] [address] [place], [address] BUN/CRE 16.5 RATIO Normal 10-20 [facility] Comment on above: Performed By: #### L 100.0100, L500.4050, L506.0400, L501.6710, L101.9900, M100.2200, L501.81336, L501.9520 #### [facility] [address] [place], [address] Calcium [Mass/Vol] 9.4 mg/dL Normal 7.6-11.0 [facility] Comment on above: Performed By: #### L 100.0100, L500.4050, L506.0400, L501.6710, L101.9900, M100.2200, L501.77620, L501.9520 #### [facility] [address] [place], [address] Chloride [Moles/Vol] 109 mmol/L High 98-108 [facility] Comment on above: Performed By: #### L 100.0100, L500.4050, L506.0400, L501.6710, L101.9900, M100.2200, L501.73252, L501.9520 #### [facility] [address] [place], [address] CO2 [Moles/Vol] 21.9 mmol/L Normal 21.0-32.0 [facility] Comment on above: Performed By: #### L 100.0100, L500.4050, L506.0400, L501.6710, L101.9900, M100.2200, L501.62548, L501.9520 #### [facility] [address] [place], [address] Creatinine [Mass/Vol] 1.31 mg/dL High 0.70-1.[address] [facility] Comment on above: Performed By: #### L 100.0100, L500.4050, L506.0400, L501.6710, L101.9900, M100.2200, L501.06015, L501.9520 #### [facility] [address] [place], [address] GAP 12 Normal 5-15 [facility] Comment on above: Performed By: #### L 100.0100, L500.4050, L506.0400, L501.6710, L101.9900, M100.2200, L501.66167, L501.9520 #### [facility] [address] [place], [address] GFR/1.73 sq M.predicted among non-blacks MDRD (S/P/Bld) [Vol rate/Area] 42 mL/min/{1.73_m2} Low >60 [facility] Comment on above: Result Comment: mL/m in/1.73m2 CKD-EPI Creatinine Equation (2020) Performed By: #### L 100.0100, L500.4050, L506.0400, L501.6710, L101.9900, M100.2200, L501.18387, L501.9520 #### [facility] [address] [place], [address] Globulin (S) [Mass/Vol] 3.1 g/dL Normal 2.2-4.2 [facility] Comment on above: Performed By: #### L 100.0100, L500.4050, L506.0400, L501.6710, L101.9900, M100.2200, L501.55923, L501.9520 #### [facility] [address] [place], [address] Glucose [Mass/Vol] 95 mg/dL Normal 70-99 [facility] Comment on above: Performed By: #### L 100.0100, L500.4050, L506.0400, L501.6710, L101.9900, M100.2200, L501.51616, L501.9520 #### [facility] [address] [place], [address] Potassium [Moles/Vol] 4.3 mmol/L Normal 3.3-5.[address] [facility] Comment on above: Performed By: #### L 100.0100, L500.4050, L506.0400, L501.6710, L101.9900, M100.2200, L501.22316, L501.9520 #### [facility] [address] [place], [address] Sodium [Moles/Vol] 143 mmol/L Normal 133-145 [facility] Comment on above: Performed By: #### L 100.0100, L500.4050, L506.0400, L501.6710, L101.9900, M100.2200, L501.41738, L501.9520 #### [facility] [address] [place], [address] T PROT 7.0 g/dL Normal 5.9-8.4 [facility] Comment on above: Performed By: #### L 100.0100, L500.4050, L506.0400, L501.6710, L101.9900, M100.2200, L501.44175, L501.9520 #### [facility] [address] [place], [address] Urea nitrogen [Mass/Vol] 22 mg/dL High 4-19 [facility] Comment on above: Performed By: #### L 100.0100, L500.4050, L506.0400, L501.6710, L101.9900, M100.2200, L501.29364, L501.9520 #### [facility] [address] [place], [address] Eosinophil percentageOrdered By: Patricia Becker on 03-03-2025 Eosinophils/100 WBC (Bld) 1.9 % 0-5 [facility] Erythrocyte Sed Rateon 03-03 SED RATE 12 mm/hr Normal 0-30 [facility] Comment on above: Performed By: #### L 100.0100, L500.4050, L506.0400, L501.6710, L101.9900, M100.2200, L501.71654, L501.9520 #### [facility] [address] [place], [place], [address] Erythrocyte distribution wid th ratioOrdered By: Patricia Becker on 03-03-2025 Erythrocyte distribution width (RBC) [Ratio] 14.4 % 11.6-14.6 [facility] Erythrocyte distribution wid th standard deviationOrdered By: Patricia Becker on 03-03-2025 Erythrocyte distribution width (RBC) [Ratio] 46.6 fl High 35.1-43.9 [facility] Erythrocyte sedimentation ra teOrdered By: Patricia Becker on 03-03-2025 ESR (Bld) [Velocity] 12 mm/h 0-30 [facility] Free T3on 03-03-2025 Free T3 [Mass/Vol] 2.6 pg/mL Normal 2.18-3.98 [facility] Comment on above: Performed By: #### L 100.0100, L500.4050, L506.0400, L501.6710, L101.9900, M100.2200, L501.23578, L501.9520 #### [facility] [address] [place], [address] Free G4Hitxjlm By: Patricia Becker on 03-03-2025 Free T3 [Mass/Vol] 2.6 pg/mL 2.18-3.98 [facility] Glomerular filtration rate ( GFR) estimation/1.73 sq m using serum, plasma, or whole bOrdered By: Patricia Becker on 03-03-2025 GFR/1.73 sq M.predicted among non-blacks MDRD (S/P/Bld) [Vol rate/Area] 42 mL/min/{1.73_m2} Low >60 [facility] Comment on above: mL/min/1.73m2 CKD-EP I Creatinine Equation (2020) Hematocrit Auto (Bld) [Volum e fraction]Ordered By: Patricia Becker on 03-03-2025 Hematocrit (Bld) [Volume fraction] 35.1 % Low 37-47 [facility] Hemoglobin measurementOrdere d By: Patricia Becker on 03-03-2025 Hemoglobin (Bld) [Mass/Vol] 11.0 g/dL Low 12.0-15.0 [facility] Immature granulocytes/100 WB C Auto (Bld)Ordered By: Patricia Becker on 03-03-2025 Immature granulocytes/100 WBC (Bld) 0.400 % 0.0-0.9 [facility] Comment on above: IG% - Immature Granu locytes (promyelocytes, myelocytes and metamyelocytes) > 1% indicates that a LEFT SHIFT is Present. Laboratory - Chemistry and C hemistry - challengeOrdered By: Patricia Becker on 03-03-2025 AST [Catalytic activity/Vol] 18 U/L <32 [facility] MCV (mean corpuscular volume ) determinationOrdered By: Patricia Becker on 03-03-2025 MCV (RBC) [Entitic vol] 88.0 fL 81-99 [facility] Mean corpuscular hemoglobin (MCH) determinationOrdered By: Patricia Becker on 03-03-2025 MCH (RBC) [Entitic mass] 27.6 pg 27.0-32.0 [facility] Mean corpuscular hemoglobin concentration (MCHC) determinationOrdered By: Patricia Becker on 03-03-2025 MCHC (RBC) [Mass/Vol] 31.3 g/dL Low 32-[address] [facility] Mean platelet volume determi nationOrdered By: Patricia Becker on 03-03-2025 Platelet mean volume (Bld) [Entitic vol] 10.0 fL 6.2-12.0 [facility] Monocyte percentageOrdered B y: Patricia Becker on 03-03-2025 Monocytes/100 WBC (Bld) 5.9 % 0-10 [facility] Neutrophil percentageOrdered By: Patricia Becker on 03-03-2025 Neutrophils/100 WBC (Bld) 69.7 % 47-70 [facility] Nucleated red blood cell per centageOrdered By: Patricia Becker on 03-03-2025 Nucleated RBC/100 WBC (Bld) [Ratio] 0 % 0-5 [facility] Platelet countOrdered By: Talon sdsandi Becker on 03-03-2025 Platelets (Bld) [#/Vol] 226 10*3/uL 150-450 [facility] Potassium measurement (mass/ volume)Ordered By: Patricia Becker on 03-03-2025 Potassium (Unsp spec) [Mass/Vol] 4.3 mmol/L 3.3-5.1 [facility] RBC Auto (Bld) [#/Vol]Ordere d By: Patricia Becker on 03-03-2025 RBC (Bld) [#/Vol] 3.99 10*6/uL Low 4.2-5.4 [facility] Serum creatinine measurement (mass/volume)Ordered By: Patricia Becker on 03-03-2025 Creatinine [Mass/Vol] 1.31 mg/dL High 0.70-1.[address] [facility] Serum globulin measurementOr dered By: Patricia Becker on 03-03-2025 Globulin (S) [Mass/Vol] 3.1 g/dL 2.2-4.2 [facility] Serum glucose measurement (m ass/volume)Ordered By: Patricia Becker on 03-03-2025 Glucose [Mass/Vol] 95 mg/dL 70-99 [facility] Serum or plasma C reactive p rotein measurement (mass/volume)Ordered By: Patricia Becker on 03-03-2025 CRP [Mass/Vol] 9.36 mg/L High 0.0-3.0 [facility] Serum or plasma alanine walker otransferase (ALT) measurementOrdered By: Patricia Becker on 03-03-2025 ALT [Catalytic activity/Vol] 14 U/L <35 [facility] Serum or plasma albumin junior urement (mass/volume)Ordered By: Patricia Becker on 03-03-2025 Albumin [Mass/Vol] 4.0 g/dL 3.4-4.8 [facility] Serum or plasma albumin/glob ulin mass ratioOrdered By: Patricia Becker on 03-03-2025 Albumin/Globulin [Mass ratio] 1.3 {ratio} 0.9-2.4 [facility] Serum or plasma alkaline shawn sphatase measurementOrdered By: Patricia Becker on 03-03-2025 ALP [Catalytic activity/Vol] 123 U/L High 35-104 [facility] Serum or plasma calcium junior urement (mass/volume)Ordered By: Patricia Becker on 03-03-2025 Calcium [Mass/Vol] 9.4 mg/dL 7.6-11.0 [facility] Serum or plasma urea nitroge n measurement (mass/volume)Ordered By: Patricia Becker on 03-03-2025 Urea nitrogen [Mass/Vol] 22 mg/dL High 4-19 [facility] Sodium levelOrdered By: Jodi Becker on 03-03-2025 Sodium [Moles/Vol] 143 mmol/L 133-145 [facility] T4 Free Directon 03-03-2025 T4 FREE DIRECT 1.40 ng/dL Normal 0.76-1.46 [facility] Comment on above: Performed By: #### L 100.0100, L500.4050, L506.0400, L501.6710, L101.9900, M100.2200, L501.00828, L501.9520 ####[facility] [address] [place], [address] T4 freeOrdered By: Patricia Becker on 03-03-2025 Free T4 [Mass/Vol] 1.40 ng/dL 0.76-1.46 [facility] TSH DL <= 0.005 mIU/L QnOrde red By: Patricia Becker on 03-03-2025 TSH Qn 2.610 uIU/mL 0.300-4.20 0 [facility] Thyroid Stim Hormone (TSH)on 03-03-2025 TSH 2.610 uIU/mL Normal 0.300-4.20 0 [facility] Comment on above: Performed By: #### L 100.0100, L500.4050, L506.0400, L501.6710, L101.9900, M100.2200, L501.08658, L501.9520 ####[facility] [address] [place], [address] Total proteinOrdered By: Alma Becker on 03-03-2025 Protein [Mass/Vol] 7.0 g/dL 5.9-8.4 [facility] Urine cultureOrdered By: Alma Becker on 03-03-2025 Bacteria identified Cx Nom (U) Klebsiella oxytoca Abnormal [facility] Bacteria identified Cx Nom (U) Positive Abnormal [facility] White blood cell (WBC) count Ordered By: Patricia Becker on 03-03-2025 WBC (Bld) [#/Vol] 6.8 10*3/uL 4.4-11.0 [facility] Knee 4 or More Viewson 12-23 Knee 4 or More Views [facility] [address] [place], [place] [address] Knee 4 or More Views MR#: [id number] Acct: [id number] Name: VERONICA COOK Rep #: [id number] : 1950 F 74 From: Paxton Feliciano MD PCP: Dr. Patricia Becker, DO Status: DEP AMB Study: Knee 4 or More Views Date of Exam: 12/23/24 Exam# [id number] Ordering Dr: Tasha Kelly SELLING SPECIALIST-C PROCEDURE: KNEE 4 OR MORE VIEWS 12/23/2024 REASON FOR EXAM: L KNEE PAIN, HX OA TECHNIQUE: 4 view(s) of the left knee COMPARISON: None available FINDINGS: No fracture or dislocation. Severe osteoarthrosis medial compartment with eobh-sy-bpdy contact and sclerotic change. Mild lateral translation of the tibia in relation to the femur together result in a varus deformity and widening of the lateral compartment. Marginal osteophyte formation lateral tibial corner. Small joint effusion suggested. Wtdh-sm-xrftxajy appearing osteoarthrosis in the patellofemoral compartment RAD/Knee 4 or More Views IMPRESSION: Osteoarthrosis severe in the medial compartment as above. Small joint effusion. Reading Location: [id number] CC: RAISSA Kelly; Dr. Patricia Becker DO Pot Press Operator: Signed Normal [facility] Orthopedic Visit Reporton Orthopedic Visit Report [facility] [address] [place] [address] [address] [place] [address] OFFICE VISIT Date of Service: 12/23/24 MR#: [id number] Acct: [id number] Name: VERONICA COOK Rep #: [id number] : 1950 Provider: RAISSA huntley Age/Sex: 74/F Location: [facility] Status: Signed Intake Vital Signs 11/05/24 07:32 12/22/24 14:06 12/23/24 13:00 Height 5 ft 5 in 5 ft 5 in 5 ft 5 in Weight: 258 lb BMI 42.9 Intake Visit Reasons: LEFT KNEE Chief Complaint: Left knee pain Accompanied by: Self Is patient in pain?: Yes Pain scale (1-10): 5 Allergies poison brandee extract Allergy (Verified 12/23/24 13:03) Rash poison oak extract Allergy (Verified 12/23/24 13:03) Rash Medications ???Medication ???Instructions ???Recorded ???Confirmed ???Type cyanocobalamin (vitamin B-12) 2,500 mcg PO MOWEFR SUPPLEMENT 12/23/24 History 2,500 mcg sublingual tablet (Vitamin B-12) atorvastatin 80 mg tablet 80 mg PO QHS 90 days #90 tabs 07/2912/23/24 Rx apixaban 5 mg tablet (Eliquis) 5 mg PO BID 09/20/23 12/23/24 Hist ory rizatriptan 10 mg disintegrating See Rx Instructions PO .COMPLEX 12/23/24 History tablet (Maxalt-[employer]) losartan 50 mg tablet 50 mg PO BID 10/09/23 12/23/24 His tory propranolol 20 mg tablet 20 mg PO TID #90 tabs 01/31/24 Rx amlodipine 2.5 mg tablet (Norvasc) 2.5 mg PO QDAY #30 tabs 04/01/24 12/23/24 Rx Have you fallen in the past year?: No PFSH Medical History H/O nephrolithotomy with removal of calculi JESUS (obstructive sleep apnea) Essential hypertension Atrial fibrillation Chronic kidney disease (CKD) Atrophic kidney Shaking Palpitations TIA (transient ischemic attack) Vertigo Benign paroxysmal positional vertigo Premature ventricular contraction Essential hypertension Non-rheumatic mitral valve stenosis Pulmonary hypertension CKD (chronic kidney disease) stage 3, GFR 30-59 ml/min Surgical History History of cholecystectomy ( 2008) Family History Mother Diabetes Hypertension Social History household members: spouse housing: other number of children: 2 pets and animals: No Smoking Status: Never smoker alcohol intake: current details: occasional substance use type: does not use caffeine: No HPI LEFT KNEE Details: This documentation accurately reflects the service provided and the decisions made by me, Tasha Kelly SELLING SPECIALIST-C 12/23/24 1300. Part of today???s visit was documented by Meli العراقي MA, acting as scribe. VERONICA COOK is a 74 year old F here today for left knee pain. Patient is having pain in her left knee. The pain is in the knee cap. The pain is severe at times, and will get sharp, stabbing and sore. Patient states that there is a burning feeling.This happened 7 years ago. Patient fell and caught herself. She went to the [facility] and they did xrays. The xray showed bone on bone 2 years ago. Patient denies any surgery on her knee. Walking makes the pain worse. Patient got a cortisone injection 2 years ago, and it didn't work well.Patient is on blood thinners she takes Eliquis she had a mini stroke in July 2023.Patient denies any smoking or drugs. Patient does use a cane for support. Agree with above. Veronica is a pleasant 74-year-old female presenting for initial Ortho evaluation here of left knee pain progressively worsening over the last 7 years after a fall. Last Ortho visit 2 years ago where she did try a cortisone injection that did not provide any relief. She has not attended any PT in the past. Her PCP advised her to start using a straight cane for balance and support as she reports increasing weakness of the left leg. Symptoms really flared approximately 4 weeks ago after returning to [place] from [place] where she resided for the last 7 months prior to returning. Aggravators of her symptoms include cold, damp and rainy weather as the most significant aggravator as well as increased activity. Patient is frustrated with inability to do the things she wants and needs to do. Reports approximately 25 to 30 pound weight gain in the last 4 weeks and generalized swelling. No history of CHF, has not seen her PCP in regards to the weight gain. Does attribute to inability to ambulate, decreased exercise and increased frequency of eating out and prepped meals and concern for increased sodium intake. ROS Const All systems reviewed are unremarkable except as noted in H and other (A O x 3, no apparent distress. No recent illness.) ENT Denies dizziness Card Denies ch (more content not included)... Normal [facility] Cardiology Visit Reporton Cardiology Visit Report [facility] [address] [place] [address] OFFICE VISIT Date of Service: 11/05/24 MR#: [id number] Acct: [id number] Name: VERONICA COOK Rep #: [id number] : 1950 Provider: MANSOOR Patton Age/Sex: 74/F Location[place] [facility] [place] Status: Signed HPI HPI History of Present Illness Details: Veronica Cook is a 74-year-old white female that established with us in 07/2023 for atrial fibrillation. The patient presented to the emergency department with TIA type symptom and subsequently had a 30-day event recorder placed. This showed 5 episodes of atrial fibrillation with rapid ventricular response for which were automatically detected 1 of which she manually detected. She also had multiple episodes that she manually detected lightheadedness and rapid heart rate which were all sinus rhythm occasionally with PVCs noted. She had 1 episode with a 6 beat run of VT. The patient was evaluated with echocardiogram which showed normal LV function with EF of 55% grade 1 diastolic dysfunction and no regional wall motion abnormalities RV was normal there was mild left atrial enlargement and normal right there was minimal valvular disease with 1+ tricuspid insufficiency. Pulmonary artery pressure was 32. The patient does have a history of obstructive sleep apnea treated with CPAP. She also underwent a pharmacologic stress test in 09/2023 that showed no evidence of ischemia the patient is EKG in the office today shows normal sinus rhythm at 62 bpm with some minor T wave changes. From a cardiac standpoint, patient is doing well. She does not have any chest discomfort/heaviness/tigh tness. She does not have any worsening symptoms of shortness of breath. She does not have any orthopnea. She denies PND. She does not have any symptoms of congestive heart failure. She does not have any palpitations that she is aware of. She has not had any afib noted on her iWatch. She does not have any lightheadedness or dizziness. She does not have any near-syncope or syncope. She does not have any lower extremity edema. She does not have any symptoms of claudication. She does ambulate with a cane. 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: No Is patient in pain?: No Allergies poison brandee extract Allergy (Verified 11/05/24 08:56) Rash poison oak extract Allergy (Verified 11/05/24 08:56) Rash Medications ???Medication ???Instructions ???Recorded ???Confirmed ???Type cyanocobalamin (vitamin B-12) 2,500 mcg PO MOWEFR SUPPLEMENT 04/01/24 History 2,500 mcg sublingual tablet (Vitamin B-12) atorvastatin 80 mg tablet 80 mg PO QHS 90 days #90 tabs 07/2911/05/24 Rx apixaban 5 mg tablet (Eliquis) 5 mg PO BID 09/20/23 11/05/24 Hist ory rizatriptan 10 mg disintegrating See Rx Instructions PO .COMPLEX 11/05/24 History tablet (Maxalt-[employer]) losartan 50 mg tablet 50 mg PO BID 10/09/23 11/05/24 His tory propranolol 20 mg tablet 20 mg PO TID #90 tabs 01/31/2405/22 Rx amlodipine 2.5 mg tablet (Norvasc) 2.5 mg PO QDAY #30 tabs 04/01/24 11/05/24 Rx Ejection fraction %: 55 Have you fallen in the past year?: No Nurse's Note: Unable to confirm medications due to patient not knowing what she is taking [facility] Medical History H/O nephrolithotomy with removal of calculi JESUS (obstructive sleep apnea) Essential hypertension Atrial fibrillation Chronic kidney disease (CKD) Atrophic kidney Shaking Palpitations TIA (transient ischemic attack) Vertigo Benign paroxysmal positional vertigo Premature ventricular contraction Essential hypertension Non-rheumatic mitral valve stenosis Pulmonary hypertension CKD (chronic kidney disease) stage 3, GFR 30-59 ml/min Surgical History History of cholecystectomy ( 2008) Family History Mother Diabetes Hypertension Social History household members: spouse housing: other number of children: 2 pets and animals: No Smoking Status: Never smoker alcohol intake: current details: occasional substance use type: does not use caffeine: No ROS Const Const: Negative for fatigue, weakness, headache(s) or frequent falls Eyes Eyes: Negative for blurry vision ENT ENT: Positive for balance (more content not included)... Normal [facility] Basic Metabolic Profile (BMP )on 04-01-2024 BUN/CRE 10.1 RATIO Normal - [facility] Comment on above: Performed By: #### L 100.0100, L500.2500 #### [facility] [address] [place], [address] CA,Total 9.3 mg/dL Normal 8.5-10.1 [facility] Comment on above: Performed By: #### L 100.0100, L500.2500 #### [facility] [address] [place], [address] Chloride [Moles/Vol] 111 mmol/L High 98-107 [facility] Comment on above: Performed By: #### L 100.0100, L500.2500 #### [facility] [address] [place], [address] CO2 [Moles/Vol] 27.0 mmol/L Normal 21.0-32.0 [facility] Comment on above: Performed By: #### L 100.0100, L500.2500 #### [facility] [address] [place], [address] Creatinine [Mass/Vol] 1.39 mg/dL High 0.55-1.[address] [facility] Comment on above: Result Comment: The validity of the calculated GFR GFRAA in patients over 70 years has not been determined. Clinical correlation is essential. Performed By: #### L 100.0100, L500.2500 #### [facility] [address] [place], [address] EST GFR - AA 48 mL/min Low >60 [facility] Comment on above: Result Comment: Afri can [place] GFR Calc Performed By: #### L 100.0100, L500.2500 #### [facility] [address] [place], [address] GAP 4 Low 5-15 [facility] Comment on above: Performed By: #### L 100.0100, L500.2500 #### [facility] [address] [place], [address] GFR/1.73 sq M.predicted among non-blacks MDRD (S/P/Bld) [Vol rate/Area] 39 mL/min/{1.73_m2} Low >60 [facility] Comment on above: Result Comment: Non- GFR Calc Performed By: #### L 100.0100, L500.2500 #### [facility] [address] [place], [address] Glucose [Mass/Vol] 80 mg/dL Normal 74-106 [facility] Comment on above: Performed By: #### L 100.0100, L500.2500 #### [facility] [address] [place], [address] Potassium [Moles/Vol] 4.1 mmol/L Normal 3.5-5.[address] [facility] Comment on above: Performed By: #### L 100.0100, L500.2500 #### [facility] [address] [place], [address] Sodium [Moles/Vol] 142 mmol/L Normal 136-145 [facility] Comment on above: Performed By: #### L 100.0100, L500.2500 #### [facility] [address] [place], [address] Urea nitrogen [Mass/Vol] 14 mg/dL Normal 7-18 [facility] Comment on above: Performed By: #### L 100.0100, L500.2500 #### [facility] [address] [place], [address] CBC W/Diff, Automatedon 09-0 4-2023 Absolute Lymph 1.48 X10 3/uL Normal 0.83-4.51 [facility] Comment on above: Performed By: #### L 100.0100, L500.2500 #### [facility] [address] [place], [address] Absolute Neut 4.4 X10 3/uL Normal 2.0-7.7 [facility] Comment on above: Performed By: #### L 100.0100, L500.2500 #### [facility] [address] [place], [address] Basophils/100 WBC (Bld) 0.3 % Normal 0-1 [facility] Comment on above: Performed By: #### L 100.0100, L500.2500 #### [facility] [address] [place], [address] Eosinophils/100 WBC (Bld) 3.0 % Normal 0-5 [facility] Comment on above: Performed By: #### L 100.0100, L500.2500 #### [facility] [address] [place], [address] Erythrocyte distribution width (RBC) [Ratio] 14.6 % Normal 11.6-14.6 [facility] Comment on above: Performed By: #### L 100.0100, L500.2500 #### [facility] [address] [place], [address] Hematocrit (Bld) [Volume fraction] 33.3 % Low 37-47 [facility] Comment on above: Performed By: #### L 100.0100, L500.2500 #### [facility] [address] [place], [address] Hemoglobin (Bld) [Mass/Vol] 10.4 g/dL Low 12.0-15.0 [facility] Comment on above: Performed By: #### L 100.0100, L500.2500 #### [facility] [address] [place], [address] IG% 0.300 Normal 0.0-0.9 [facility] Comment on above: Result Comment: IG% - Immature Granulocytes (promyelocytes, myelocytes and metamyelocytes) > 1% indicates that a LEFT SHIFT is Present. Performed By: #### L 100.0100, L500.2500 #### [facility] [address] [place], [address] Lymphocytes/100 WBC (Bld) 22.1 % Normal 19-41 [facility] Comment on above: Performed By: #### L 100.0100, L500.2500 #### [facility] [address] [place], [address] MCH (RBC) [Entitic mass] 27.9 pg Normal 27.0-32.0 [facility] Comment on above: Performed By: #### L 100.0100, L500.2500 #### [facility] [address] [place], [address] MCHC (RBC) [Mass/Vol] 31.2 g/dL Low 32-[address] [facility] Comment on above: Performed By: #### L 100.0100, L500.2500 #### [facility] [address] [place], [address] MCV (RBC) [Entitic vol] 89.3 fL Normal 81-99 [facility] Comment on above: Performed By: #### L 100.0100, L500.2500 #### [facility] [address] [place], [address] Monocytes/100 WBC (Bld) 8.4 % Normal 0-10 [facility] Comment on above: Performed By: #### L 100.0100, L500.2500 #### [facility] [address] [place], [address] Neutrophils/100 WBC (Bld) 65.9 % Normal 47-70 [facility] Comment on above: Performed By: #### L 100.0100, L500.2500 #### [facility] [address] [place], [address] Nucleated RBC (Bld) [#/Vol] 0 10*3/uL Normal 0-5 [facility] Comment on above: Performed By: #### L 100.0100, L500.2500 #### [facility] [address] [place], [address] Platelet mean volume (Bld) [Entitic vol] 10.3 fL Normal 6.2-12.0 [facility] Comment on above: Performed By: #### L 100.0100, L500.2500 #### [facility] [address] [place], [address] Platelets (Bld) [#/Vol] 247 10*3/uL Normal 150-450 [facility] Comment on above: Performed By: #### L 100.0100, L500.2500 #### [facility] [address] [place], [address] RBC (Bld) [#/Vol] 3.73 10*6/uL Low 4.2-5.4 [facility] Comment on above: Performed By: #### L 100.0100, L500.2500 #### [facility] [address] [place], [address] RDW SD 47.4 fl High 35.1-43.9 [facility] Comment on above: Performed By: #### L 100.0100, L500.2500 #### [facility] [address] [place], [address] WBC (Bld) [#/Vol] 6.7 10*3/uL Normal 4.4-11.0 [facility] Comment on above: Performed By: #### L 100.0100, L500.2500 #### [facility] [address] [place], [address] Cardiology Visit Reporton Cardiology Visit Report [facility] [address] [place] [address] OFFICE VISIT Date of Service: 04/01/24 MR#: [id number] Acct: [id number] Name: VERONICA COOK Rep #: [id number] : 1950 Provider: MANSOOR Patton Age/Sex: 74/F [place] [facility] [place] Status: Signed HPI HPI History of Present Illness Details: Veronica Cook is a 74-year-old white female that established with us in 07/2023 for atrial fibrillation. The patient presented to the emergency department with TIA type symptom and subsequently had a 30-day event recorder placed. This showed 5 episodes of atrial fibrillation with rapid ventricular response for which were automatically detected 1 of which she manually detected. She also had multiple episodes that she manually detected lightheadedness and rapid heart rate which were all sinus rhythm occasionally with PVCs noted. She had 1 episode with a 6 beat run of VT. The patient was evaluated with echocardiogram which showed normal LV function with EF of 55% grade 1 diastolic dysfunction and no regional wall motion abnormalities RV was normal there was mild left atrial enlargement and normal right there was minimal valvular disease with 1+ tricuspid insufficiency. Pulmonary artery pressure was 32. The patient does have a history of obstructive sleep apnea treated with CPAP. She also underwent a pharmacologic stress test in 09/2023 that showed no evidence of ischemia the patient is EKG in the office today shows normal sinus rhythm at 62 bpm with some minor T wave changes. Pt notes that she has not had any palpitations that she is aware of. She notes that the past 3 morning her Bp has been high. She does not have any chest pain. She does not have any worsening SOB. She does not have any lightheadedness/dizziness . She notes that she felt like a motor in her chest running. After further discussion she felt like her heart was vibrating. These do not last long. She does have an apple watch, this has not demonstrated an Afib. 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 Is patient in pain?: No Allergies poison brandee extract Allergy (Verified 04/01/24 10:31) Rash poison oak extract Allergy (Verified 04/01/24 10:31) Rash Medications ???Medication ???Instructions ???Recorded ???Confirmed ???Type cyanocobalamin (vitamin B-12) 2,500 mcg PO MOWEFR SUPPLEMENT 10/18/21 04/01/24 History 2,500 mcg sublingual tablet (Vitamin B-12) atorvastatin 80 mg tablet 80 mg PO QHS 90 days #90 tabs 08/09/23 04/01/24 Rx apixaban 5 mg tablet (Eliquis) 5 mg PO BID 09/20/23 04/01/24 History rizatriptan 10 mg disintegrating See Rx Instructions PO .COMPLEX 09/20/23 10/09/23 History tablet (Maxalt-[employer]) losartan 50 mg tablet 50 mg PO BID 10/09/23 04/01/24 History propranolol 20 mg tablet 20 mg PO TID #90 tabs 01/31/24 04/01/24 Rx amlodipine 2.5 mg tablet (Norvasc) 2.5 mg PO QDAY #30 tabs 04/01/24 04/01/24 Rx escitalopram oxalate 10 mg tablet 10 mg PO QDAY 04/01/24 04/01/24 History Have you fallen in the past year?: No Nurse's Note: no medication list, guessing at medications [facility] Medical History H/O nephrolithotomy with removal of calculi JESUS (obstructive sleep apnea) Essential hypertension Atrial fibrillation Chronic kidney disease (CKD) Atrophic kidney Shaking Palpitations TIA (transient ischemic attack) Vertigo Benign paroxysmal positional vertigo Premature ventricular contraction Essential hypertension Non-rheumatic mitral valve stenosis Pulmonary hypertension CKD (chronic kidney disease) stage 3, GFR 30-59 ml/min Surgical History History of cholecystectomy ( 2008) Family History Mother Diabetes Hypertension Social History household members: spouse housing: other number of children: 2 pets and animals: No Smoking Status: Never smoker alcohol intake: current details: occasional substance use type: does not use caffeine: No ROS Const Const: Negative for fatigue or weakness ENT ENT: Positive for balance problems; Negative for dizziness Cardio Chest Pain: No Palpitations: Yes feels like its: pounding Edema: None Muscle aches with walking: None Resp Respiratory: Positive for SOB with activity; Negative for SOB at r (more content not included)... Normal [facility] Absolute lymphocyte countOrd ered By: Brandon Arrieta on 08-27-2023 Lymphocytes Auto (Unsp spec) [#/Vol] 1.03 10*3/uL 0.83-4.51 [facility] Automated lymphocyte count a s percentage of total leukocytesOrdered By: Brandon Arrieta on 08-27-2023 Lymphocytes/100 WBC Auto (Unsp spec) 13.5 % 19-41 [facility] Basophil percentageOrdered B y: Brandon Arrieta on 08-27-2023 Basophils/100 WBC (Bld) 0.3 % 0-1 [facility] Chloride [Moles/Vol] 117 mmol/L 98-107 [facility] Eosinophils/100 WBC (Bld) 2.0 % 0-5 [facility] Glucose [Mass/Vol] 111 mg/dL 74-106 [facility] Comment on above: Fasting Glucose resu lt from 100 to 125 mg/dL suggests IMPAIRED HOMEOSTASIS per A.D.A. criteria. Hemoglobin (Bld) [Mass/Vol] 10.3 g/dL 12.0-15.0 [facility] Monocytes/100 WBC (Bld) 3.5 % 0-10 [facility] Neutrophils (Bld) [#/Vol] 6.2 10*3/uL 2.0-7.7 [facility] Neutrophils/100 WBC (Bld) 80.3 % 47-70 [facility] Potassium [Moles/Vol] 3.7 mmol/L 3.5-5.[address] [facility] Sodium [Moles/Vol] 145 mmol/L 136-145 [facility] WBC (Bld) [#/Vol] 7.7 10*3/uL 4.4-11.0 [facility] Determination of erythrocyte mean corpuscular volume (MCV)Ordered By: Brandon Arrieta on 08-27-2023 MCV (RBC) [Entitic vol] 87.8 fL 81-99 [facility] Erythrocyte distribution wid th ratioOrdered By: Brandon Arrieta on 08-27-2023 Erythrocyte distribution width (RBC) [Ratio] 13.5 % 11.6-14.6 [facility] Erythrocyte distribution wid th standard deviationOrdered By: Brandon Arrieta on 08-27-2023 Erythrocyte distribution width (RBC) [Entitic vol] 43.5 fL 35.1-43.9 [facility] Hematocrit Auto (Bld) [Volum e fraction]Ordered By: Brandon Arrieta on 08-27-2023 Hematocrit (Bld) [Volume fraction] 32.5 % 37-47 [facility] Immature granulocytes/100 WB C Auto (Bld)Ordered By: Brandon Arrieta on 08-27-2023 Immature granulocytes/100 WBC (Bld) 0.400 % 0.0-0.9 [facility] Comment on above: IG% - Immature Granu locytes (promyelocytes, myelocytes and metamyelocytes) > 1% indicates that a LEFT SHIFT is Present. Laboratory - Chemistry and C hemistry - challengeOrdered By: Brandon Arrieta on 08-27-2023 CO2 [Moles/Vol] 22.0 mmol/L 21.0-32.0 [facility] Urea nitrogen/Creatinine [Mass ratio] 13.2 mg/mg 10-20 [facility] - Hematology and Cell countsOrdered By: Brandon Arrieta on 08-27-2023 MCH (RBC) [Entitic mass] 27.8 pg 27.0-32.0 [facility] MCHC (RBC) [Mass/Vol] 31.7 g/dL 32-[address] [facility] Nucleated RBC/100 WBC (Bld) [Ratio] 0 % 0-5 [facility] Platelets (Bld) [#/Vol] 228 10*3/uL 150-450 [facility] No Panel InformationOrdered By: Brandon Arrieta on 08-27-2023 Troponin I High Sensitivity 22 pg/mL 3.0-54.0 [facility] Comment on above: Please Note: [place] t Units and Gender Specific Reference Ranges. For more information see Policy Stat Procedure [place] High Sensitivity Troponin (TNIH) and attachments. Estimated GFR (MDRD) Amer 52 mL/min >60 [facility] Comment on above: GFR Calc Estimated GFR (MDRD) Non-Af Amer 43 mL/min >60 [facility] Comment on above: Non- GFR Calc Platelet mean volume Steffen-Ec ker (Bld) [Entitic vol]Ordered By: Brandon Arrieta on 08-27-2023 Platelet mean volume (Bld) [Entitic vol] 10.4 fL 6.2-12.0 [facility] RBC Auto (Bld) [#/Vol]Ordere d By: Brandon Arrieta on 08-27-2023 RBC (Bld) [#/Vol] 3.70 10*6/uL 4.2-5.4 [facility] Serum or plasma calcium junior urement (mass/volume)Ordered By: Brandon Arrieta on 08-27-2023 Calcium [Mass/Vol] 8.8 mg/dL 8.5-10.1 [facility] Serum or plasma cardiac trop onin I panel by high sensitivity methodOrdered By: Brandon Arrieta on 08-27-2023 Tropinin I.cardiac panel High sensitivity method 17 pg/mL 3.0-54.0 [facility] Comment on above: Please Note: [place] t Units and Gender Specific Reference Ranges. For more information see Policy Stat Procedure [place] High Sensitivity Troponin (TNIH) and attachments. Serum or plasma creatinine m easurement (mass/volume)Ordered By: Brandon Arrieta on 08-27-2023 Creatinine [Mass/Vol] 1.29 mg/dL 0.55-1.[address] [facility] Comment on above: The validity of the calculated GFR & GFRAA in patients over 70 years has not been determined. Clinical correlation is essential. Serum or plasma urea nitroge n measurement (mass/volume)Ordered By: Brandon Arrieta on 08-27-2023 Urea nitrogen [Mass/Vol] 17 mg/dL 7-18 [facility] Thin prep Papanicolaou smear with manual screeningOrdered By: Brandon Arrieta on 08-27-2023 Thin prep Papanicolaou smear with manual screening 6 5-15 [facility] Absolute lymphocyte countOrd ered By: Liam Elliott on 08-14-2023 Lymphocytes Auto (Unsp spec) [#/Vol] 1.54 10*3/uL 0.83-4.51 [facility] Activated partial thrombopla stin time (aPTT) in platelet poor plasma by coagulation aOrdered By: Liam Elliott on 08-14-2023 aPTT Coag (PPP) [Time] 27.3 s 24.1-36.2 [facility] Automated lymphocyte count a s percentage of total leukocytesOrdered By: Liam Elliott on 08-14-2023 Lymphocytes/100 WBC Auto (Unsp spec) 21.5 % 19-41 [facility] Basophil percentageOrdered B y: Liam Elliott on 08-14-2023 Basophils/100 WBC (Bld) 0.1 % 0-1 [facility] Chloride [Moles/Vol] 113 mmol/L 98-107 [facility] Eosinophils/100 WBC (Bld) 2.1 % 0-5 [facility] Glucose [Mass/Vol] 114 mg/dL 74-106 [facility] Comment on above: Fasting Glucose resu lt from 100 to 125 mg/dL suggests IMPAIRED HOMEOSTASIS per A.D.A. criteria. Hemoglobin (Bld) [Mass/Vol] 10.2 g/dL 12.0-15.0 [facility] Monocytes/100 WBC (Bld) 5.6 % 0-10 [facility] Neutrophils (Bld) [#/Vol] 5.0 10*3/uL 2.0-7.7 [facility] Neutrophils/100 WBC (Bld) 70.4 % 47-70 [facility] Potassium [Moles/Vol] 3.6 mmol/L 3.5-5.[address] [facility] Sodium [Moles/Vol] 143 mmol/L 136-145 [facility] WBC (Bld) [#/Vol] 7.2 10*3/uL 4.4-11.0 [facility] Determination of erythrocyte mean corpuscular volume (MCV)Ordered By: Liam Elliott on 08-14-2023 MCV (RBC) [Entitic vol] 89.2 fL 81-99 [facility] Erythrocyte distribution wid th ratioOrdered By: Liam Elliott on 08-14-2023 Erythrocyte distribution width (RBC) [Ratio] 13.5 % 11.6-14.6 [facility] Erythrocyte distribution wid th standard deviationOrdered By: Liam Elliott on 08-14-2023 Erythrocyte distribution width (RBC) [Entitic vol] 44.0 fL 35.1-43.9 [facility] Hematocrit Auto (Bld) [Volum e fraction]Ordered By: Liam Elliott on 08-14-2023 Hematocrit (Bld) [Volume fraction] 32.9 % 37-47 [facility] Immature granulocytes/100 WB C Auto (Bld)Ordered By: Liam Elliott on 08-14-2023 Immature granulocytes/100 WBC (Bld) 0.300 % 0.0-0.9 [facility] Comment on above: IG% - Immature Granu locytes (promyelocytes, myelocytes and metamyelocytes) > 1% indicates that a LEFT SHIFT is Present. International normalized rat io (INR) calculationOrdered By: Liam Elliott on 08-14-2023 INR Coag (PPP) [Relative time] 1.0 {INR} [facility] Laboratory - Chemistry and C hemistry - challengeOrdered By: Liam Elliott on 08-14-2023 CO2 [Moles/Vol] 26.0 mmol/L 21.0-32.0 [facility] Urea nitrogen/Creatinine [Mass ratio] 17.2 mg/mg 10-20 [facility] Laboratory - CoagulationOrde red By: Liam Elliott on 08-14-2023 PT Coag (PPP) [Time] 13.6 s 11.7-14.9 [facility] Laboratory - Hematology and Cell countsOrdered By: Liam Elliott on 08-14-2023 MCH (RBC) [Entitic mass] 27.6 pg 27.0-32.0 [facility] MCHC (RBC) [Mass/Vol] 31.0 g/dL 32-[address] [facility] Nucleated RBC/100 WBC (Bld) [Ratio] 0 % 0-5 [facility] Platelets (Bld) [#/Vol] 240 10*3/uL 150-450 [facility] No Panel InformationOrdered By: Liam Elliott on 08-14-2023 Estimated Creatinine Clearance Calc 38.28 ml/min [facility] Estimated GFR (MDRD) Amer 40 mL/min >60 [facility] Comment on above: GFR Calc Estimated GFR (MDRD) Non-Af Amer 33 mL/min >60 [facility] Comment on above: Non- GFR Calc Troponin I High Sensitivity 13 pg/mL 3.0-54.0 [facility] Comment on above: Please Note: [place] t Units and Gender Specific Reference Ranges. For more information see Policy Stat Procedure [place] High Sensitivity Troponin (TNIH) and attachments. Platelet mean volume Steffen-Ec ker (Bld) [Entitic vol]Ordered By: Liam Elliott on 08-14-2023 Platelet mean volume (Bld) [Entitic vol] 11.3 fL 6.2-12.0 [facility] RBC Auto (Bld) [#/Vol]Ordere d By: Liam Elliott on 08-14-2023 RBC (Bld) [#/Vol] 3.69 10*6/uL 4.2-5.4 [facility] Serum or plasma calcium junior urement (mass/volume)Ordered By: Liam Elliott on 08-14-2023 Calcium [Mass/Vol] 9.0 mg/dL 8.5-10.1 [facility] Serum or plasma creatinine m easurement (mass/volume)Ordered By: Liam Elliott on 08-14-2023 Creatinine [Mass/Vol] 1.63 mg/dL 0.55-1.[address] [facility] Comment on above: The validity of the calculated GFR & GFRAA in patients over 70 years has not been determined. Clinical correlation is essential. Serum or plasma urea nitroge n measurement (mass/volume)Ordered By: Liam Elliott on 08-14-2023 Urea nitrogen [Mass/Vol] 28 mg/dL 7-18 [facility] Thin prep Papanicolaou smear with manual screeningOrdered By: Liam Elliott on 08-14-2023 Thin prep Papanicolaou smear with manual screening 4 5-15 [facility] Absolute lymphocyte countOrd ered By: Vandana Bishop on 08-08-2023 Lymphocytes Auto (Unsp spec) [#/Vol] 1.84 10*3/uL 0.83-4.51 [facility] Basophil percentageOrdered B y: Vandana Bishop on 08-08-2023 Basophils/100 WBC (Bld) 0.3 % 0-1 [facility] Chloride [Moles/Vol] 116 mmol/L 98-107 [facility] Cholesterol [Mass/Vol] 148 mg/dL <200 [facility] Comment on above: <200 mg/dL Desirable 200-240 mg/dL Borderline >240 mg/dL High Risk Eosinophils/100 WBC (Bld) 2.3 % 0-5 [facility] Glucose [Mass/Vol] 110 mg/dL 74-106 [facility] Comment on above: Fasting Glucose resu lt from 100 to 125 mg/dL suggests IMPAIRED HOMEOSTASIS per A.D.A. criteria. Neutrophils (Bld) [#/Vol] 4.0 10*3/uL 2.0-7.7 [facility] Neutrophils/100 WBC (Bld) 61.5 % 47-70 [facility] Potassium [Moles/Vol] 4.3 mmol/L 3.5-5.[address] [facility] Sodium [Moles/Vol] 144 mmol/L 136-145 [facility] Triglyceride [Mass/Vol] 90 mg/dL <199 [facility] Comment on above: The drugs N-Acetylcy steine and Metamizole may falsely depress this assay.Serum Triglycerides Reference Interval Normal <150 mg/dL Borderline high 150 - 199 mg/dL High 200 - 499 mg/dL Very High > or = 500 mg/dL WBC (Bld) [#/Vol] 6.5 10*3/uL 4.4-11.0 [facility] Blood erythrocytes count (nu mber/volume)Ordered By: Vandana Bishop on 08-08-2023 RBC (Bld) [#/Vol] 3.57 10*6/uL 4.2-5.4 [facility] Blood hemoglobin measurement (mass/volume)Ordered By: Vandana Bishop on 08-08-2023 Hemoglobin (Bld) [Mass/Vol] 9.7 g/dL 12.0-15.0 [facility] Blood lymphocytes/100 leukoc ytesOrdered By: Vandana Bishop on 08-08-2023 Lymphocytes/100 WBC (Bld) 28.5 % 19-41 [facility] Blood monocytes/100 leukocyt esOrdered By: Vandana Bishop on 08-08-2023 Monocytes/100 WBC (Bld) 7.1 % 0-10 [facility] Blood platelet mean volumeOr dered By: Vandana Bishop on 08-08-2023 Platelet mean volume (Bld) [Entitic vol] 10.4 fL 6.2-12.0 [facility] Determination of erythrocyte mean corpuscular volume (MCV)Ordered By: Vandana Bishop on 08-08-2023 MCV (RBC) [Entitic vol] 89.4 fL 81-99 [facility] Hematocrit Auto (Bld) [Volum e fraction]Ordered By: Vandanazackery Bishop on 08-08-2023 Hematocrit (Bld) [Volume fraction] 31.9 % 37-47 [facility] Laboratory - Chemistry and C hemistry - challengeOrdered By: [facility] on 08-08-2023 CO2 [Moles/Vol] 24.0 mmol/L 21.0-32.0 [facility] Urea nitrogen/Creatinine [Mass ratio] 26.4 mg/mg 10-20 [facility] Laboratory - Hematology and Cell countsOrdered By: [facility]-2023 Erythrocyte distribution width (RBC) [Entitic vol] 44.7 fL 35.1-43.9 [facility] Erythrocyte distribution width (RBC) [Ratio] 13.5 % 11.6-14.6 [facility] Immature granulocytes/100 WBC (Bld) 0.300 % 0.0-0.9 [facility] Comment on above: IG% - Immature Granu locytes (promyelocytes, myelocytes and metamyelocytes) > 1% indicates that a LEFT SHIFT is Present. MCH (RBC) [Entitic mass] 27.2 pg 27.0-32.0 [facility] Nucleated RBC/100 WBC (Bld) [Ratio] 0 % 0-5 [facility] MCHC Auto (RBC) [Mass/Vol]Or dered By: Vandanazackery Bishop on 08-08-2023 MCHC (RBC) [Mass/Vol] 30.4 g/dL 32-[address] [facility] No Panel InformationOrdered By: Vandanazackery Bishop on 08-08-2023 Troponin I High Sensitivity 15 pg/mL 3.0-54.0 [facility] Comment on above: Please Note: [place] t Units and Gender Specific Reference Ranges. For more information see Policy Stat Procedure [place] High Sensitivity Troponin (TNIH) and attachments. Estimated Creatinine Clearance Calc 38.91 ml/min [facility] Estimated GFR (MDRD) Amer 41 mL/min >60 [facility] Comment on above: GFR Calc Estimated GFR (MDRD) Non-Af Amer 34 mL/min >60 [facility] Comment on above: Non- GFR Calc Platelets bldOrdered By: Marissa Bishop on 08-08-2023 Platelets (Bld) [#/Vol] 246 10*3/uL 150-450 [facility] Serum or plasma calcium junior urement (mass/volume)Ordered By: Vandana Bishop on 08-08-2023 Calcium [Mass/Vol] 8.7 mg/dL 8.5-10.1 [facility] Serum or plasma cholesterol in HDL measurement (mass/volume)Ordered By: Vandana Bishop on 08-08-2023 Cholesterol in HDL [Mass/Vol] 48 mg/dL >40 [facility] Comment on above: The drugs N-Acetylcy steine and Metamizole may falsely depress this assay. Reference Range HDL <40 mg/dL Low HDL Cholesterol HDL >or= 60 mg/dL High HDL Cholesterol Serum or plasma cholesterol in VLDL measurement (mass/volume)Ordered By: Vandana Bishop on 08-08-2023 Cholesterol in VLDL [Mass/Vol] 18 mg/dL 5-40 [facility] Serum or plasma creatinine m easurement (mass/volume)Ordered By: Vandana Bishop on 08-08-2023 Creatinine [Mass/Vol] 1.59 mg/dL 0.55-1.[address] [facility] Comment on above: The validity of the calculated GFR & GFRAA in patients over 70 years has not been determined. Clinical correlation is essential. Serum or plasma low density lipoprotein (LDL) cholesterol measurement (mass/volume)Ordered By: Vandana Bishop on 08-08-2023 Cholesterol in LDL [Mass/Vol] 82 mg/dL 0-130 [facility] Serum or plasma urea nitroge n measurement (mass/volume)Ordered By: Vandana Bishop on 08-08-2023 Urea nitrogen [Mass/Vol] 42 mg/dL 7-18 [facility] Thin prep Papanicolaou smear with manual screeningOrdered By: Vandana Bishop on 08-08-2023 Thin prep Papanicolaou smear with manual screening 4 5-15 [facility] Absolute lymphocyte countOrd ered By: Christopher Gao on 08-07-2023 Lymphocytes Auto (Unsp spec) [#/Vol] 2.22 10*3/uL 0.83-4.51 [facility] Basophil percentageOrdered B y: Christopher Gao on 08-07-2023 Basophils/100 WBC (Bld) 0.5 % 0-1 [facility] Chloride [Moles/Vol] 113 mmol/L 98-107 [facility] Eosinophils/100 WBC (Bld) 3.0 % 0-5 [facility] Glucose [Mass/Vol] 119 mg/dL 74-106 [facility] Comment on above: Fasting Glucose resu lt from 100 to 125 mg/dL suggests IMPAIRED HOMEOSTASIS per A.D.A. criteria. Neutrophils (Bld) [#/Vol] 4.7 10*3/uL 2.0-7.7 [facility] Neutrophils/100 WBC (Bld) 61.1 % 47-70 [facility] Potassium [Moles/Vol] 3.9 mmol/L 3.5-5.[address] [facility] Sodium [Moles/Vol] 143 mmol/L 136-145 [facility] WBC (Bld) [#/Vol] 7.7 10*3/uL 4.4-11.0 [facility] Blood erythrocytes count (nu mber/volume)Ordered By: Christopher Gao on 08-07-2023 RBC (Bld) [#/Vol] 4.25 10*6/uL 4.2-5.4 [facility] Blood hemoglobin measurement (mass/volume)Ordered By: Christopher Gao on 08-07-2023 Hemoglobin (Bld) [Mass/Vol] 11.8 g/dL 12.0-15.0 [facility] Blood lymphocytes/100 leukoc ytesOrdered By: Christopher Gao on 08-07-2023 Lymphocytes/100 WBC (Bld) 28.8 % 19-41 [facility] Blood monocytes/100 leukocyt esOrdered By: Christopher Gao on 08-07-2023 Monocytes/100 WBC (Bld) 6.2 % 0-10 [facility] Blood platelet mean volumeOr dered By: Christopher Gao on 08-07-2023 Platelet mean volume (Bld) [Entitic vol] 11.0 fL 6.2-12.0 [facility] Determination of erythrocyte mean corpuscular volume (MCV)Ordered By: Christopher Gao on 08-07-2023 MCV (RBC) [Entitic vol] 89.4 fL 81-99 [facility] Hematocrit Auto (Bld) [Volum e fraction]Ordered By: Christopher Gao on 08-07-2023 Hematocrit (Bld) [Volume fraction] 38.0 % 37-47 [facility] INR in Blood by Coagulation assayOrdered By: Christopher Gao on 08-07-2023 INR Coag (Bld) [Relative time] 0.9 {INR} [facility] Laboratory - Chemistry and C hemistry - challengeOrdered By: Christopher Gao on 08-07-2023 CO2 [Moles/Vol] 24.0 mmol/L 21.0-32.0 [facility] Urea nitrogen/Creatinine [Mass ratio] 23.6 mg/mg 10-20 [facility] Laboratory - CoagulationOrde red By: Christopher Gao on 08-07-2023 aPTT Coag (Bld) [Time] 26.8 s 24.1-36.2 [facility] PT Coag (PPP) [Time] 12.4 s 11.7-14.9 [facility] Laboratory - Hematology and Cell countsOrdered By: Christopher Gao on 08-07-2023 Erythrocyte distribution width (RBC) [Entitic vol] 45.1 fL 35.1-43.9 [facility] Erythrocyte distribution width (RBC) [Ratio] 13.8 % 11.6-14.6 [facility] Immature granulocytes/100 WBC (Bld) 0.400 % 0.0-0.9 [facility] Comment on above: IG% - Immature Granu locytes (promyelocytes, myelocytes and metamyelocytes) > 1% indicates that a LEFT SHIFT is Present. MCH (RBC) [Entitic mass] 27.8 pg 27.0-32.0 [facility] Nucleated RBC/100 WBC (Bld) [Ratio] 0 % 0-5 [facility] MCHC Auto (RBC) [Mass/Vol]Or dered By: Christopher Gao on 08-07-2023 MCHC (RBC) [Mass/Vol] 31.1 g/dL 32-[address] [facility] No Panel InformationOrdered By: Christopher Gao on 08-07-2023 Estimated Creatinine Clearance Calc 34.69 ml/min [facility] Estimated GFR (MDRD) Amer 35 mL/min >60 [facility] Comment on above: GFR Calc Estimated GFR (MDRD) Non-Af Amer 29 mL/min >60 [facility] Comment on above: Non- GFR Calc Troponin I High Sensitivity 14 pg/mL 3.0-54.0 [facility] Comment on above: Please Note: [place] t Units and Gender Specific Reference Ranges. For more information see Policy Stat Procedure [place] High Sensitivity Troponin (TNIH) and attachments. Platelets bldOrdered By: Lor Gao on 08-07-2023 Platelets (Bld) [#/Vol] 304 10*3/uL 150-450 [facility] Serum or plasma calcium junior urement (mass/volume)Ordered By: Christopher Gao on 08-07-2023 Calcium [Mass/Vol] 9.1 mg/dL 8.5-10.1 [facility] Serum or plasma creatinine m easurement (mass/volume)Ordered By: Christopher Gao on 08-07-2023 Creatinine [Mass/Vol] 1.82 mg/dL 0.55-1.[address] [facility] Comment on above: The validity of the calculated GFR & GFRAA in patients over 70 years has not been determined. Clinical correlation is essential. Serum or plasma urea nitroge n measurement (mass/volume)Ordered By: Christopher Gao on 08-07-2023 Urea nitrogen [Mass/Vol] 43 mg/dL 7-18 [facility] Thin prep Papanicolaou smear with manual screeningOrdered By: Christopher Gao on 08-07-2023 Thin prep Papanicolaou smear with manual screening 6 5-15 [facility] Whole blood hemoglobin A1c/t otal hemoglobin ratio (mass fraction)Ordered By: Vandana Bishop on 08-07-2023 HbA1c (Bld) [Mass fraction] 5.5 % 3.8-5.6 [facility] Comment on above: Normal < 5.7 % Predi abetic 5.7 - 6.4 % Diabetic >or= 6.5 % Please note range changes. Absolute lymphocyte countOrd ered By: Deedee Cruz on 07-15-2023 Lymphocytes Auto (Unsp spec) [#/Vol] 1.36 10*3/uL 0.83-4.51 [facility] Basophil percentageOrdered B y: Deedee Cruz on 07-15-2023 Basophils/100 WBC (Bld) 0.2 % 0-1 [facility] Chloride [Moles/Vol] 111 mmol/L 98-107 [facility] Eosinophils/100 WBC (Bld) 2.6 % 0-5 [facility] Glucose [Mass/Vol] 102 mg/dL 74-106 [facility] Comment on above: Fasting Glucose resu lt from 100 to 125 mg/dL suggests IMPAIRED HOMEOSTASIS per A.D.A. criteria. Neutrophils (Bld) [#/Vol] 6.5 10*3/uL 2.0-7.7 [facility] Neutrophils/100 WBC (Bld) 75.0 % 47-70 [facility] Potassium [Moles/Vol] 5.1 mmol/L 3.5-5.[address] [facility] Sodium [Moles/Vol] 142 mmol/L 136-145 [facility] WBC (Bld) [#/Vol] 8.7 10*3/uL 4.4-11.0 [facility] Blood erythrocytes count (nu mber/volume)Ordered By: Deedee Cruz on 07-15-2023 RBC (Bld) [#/Vol] 3.98 10*6/uL 4.2-5.4 [facility] Blood hemoglobin measurement (mass/volume)Ordered By: Deedee Cruz on 07-15-2023 Hemoglobin (Bld) [Mass/Vol] 11.4 g/dL 12.0-15.0 [facility] Blood lymphocytes/100 leukoc ytesOrdered By: Deedee Cruz on 07-15-2023 Lymphocytes/100 WBC (Bld) 15.6 % 19-41 [facility] Blood monocytes/100 leukocyt esOrdered By: Deedee Cruz on 07-15-2023 Monocytes/100 WBC (Bld) 6.1 % 0-10 [facility] Blood platelet mean volumeOr dered By: Deedee Cruz on 07-15-2023 Platelet mean volume (Bld) [Entitic vol] 10.2 fL 6.2-12.0 [facility] Determination of erythrocyte mean corpuscular volume (MCV)Ordered By: Deedee Cruz on 07-15-2023 MCV (RBC) [Entitic vol] 88.4 fL 81-99 [facility] Erythrocyte sedimentation ra teOrdered By: Deedee Cruz on 07-15-2023 ESR (Bld) [Velocity] 53 mm/h 0-30 [facility] Hematocrit Auto (Bld) [Volum e fraction]Ordered By: Deedee Cruz on 07-15-2023 Hematocrit (Bld) [Volume fraction] 35.2 % 37-47 [facility] Laboratory - Chemistry and C hemistry - challengeOrdered By: Deedee Cruz on 07-15-2023 CO2 [Moles/Vol] 23.0 mmol/L 21.0-32.0 [facility] Urea nitrogen/Creatinine [Mass ratio] 19.9 mg/mg 10-20 [facility] Laboratory - Hematology and Cell countsOrdered By: Deedee Cruz on 07-15-2023 Erythrocyte distribution width (RBC) [Entitic vol] 45.3 fL 35.1-43.9 [facility] Erythrocyte distribution width (RBC) [Ratio] 14.0 % 11.6-14.6 [facility] Immature granulocytes/100 WBC (Bld) 0.500 % 0.0-0.9 [facility] Comment on above: IG% - Immature Granu locytes (promyelocytes, myelocytes and metamyelocytes) > 1% indicates that a LEFT SHIFT is Present. MCH (RBC) [Entitic mass] 28.6 pg 27.0-32.0 [facility] Nucleated RBC/100 WBC (Bld) [Ratio] 0 % 0-5 [facility] MCHC Auto (RBC) [Mass/Vol]Or dered By: Deedee Cruz on 07-15-2023 MCHC (RBC) [Mass/Vol] 32.4 g/dL 32-[address] [facility] No Panel InformationOrdered By: Deedee Cruz on 07-15-2023 Estimated GFR (MDRD) Amer 34 mL/min >60 [facility] Comment on above: GFR Calc Estimated GFR (MDRD) Non-Af Amer 28 mL/min >60 [facility] Comment on above: Non- GFR Calc Platelets bldOrdered By: Nabeel Cruz on 07-15-2023 Platelets (Bld) [#/Vol] 309 10*3/uL 150-450 [facility] Serum or plasma C reactive p rotein measurement (mass/volume)Ordered By: Deedee Cruz on 07-15-2023 CRP [Mass/Vol] 75.60 mg/L 0.0-3.0 [facility] Comment on above: C-Reactive Protein ( CRP) provides useful information for thediagnosis, therapy and monitoring of inflammatory processesand associated diseases. For the evaluation of Relative Riskfor Cardiovascular Disease, a High Sensitivity CRP (HSCRP)should be ordered. Serum or plasma calcium junior urement (mass/volume)Ordered By: Deedee Cruz on 07-15-2023 Calcium [Mass/Vol] 8.9 mg/dL 8.5-10.1 [facility] Serum or plasma creatinine m easurement (mass/volume)Ordered By: Deedee Cruz on 07-15-2023 Creatinine [Mass/Vol] 1.86 mg/dL 0.55-1.[address] [facility] Comment on above: The validity of the calculated GFR & GFRAA in patients over 70 years has not been determined. Clinical correlation is essential. Serum or plasma urea nitroge n measurement (mass/volume)Ordered By: Deedee Cruz on 07-15-2023 Urea nitrogen [Mass/Vol] 37 mg/dL 02-12 [facility] Serum or plasma uric acid me asurement (mass/volume)Ordered By: Deedee Cruz on 07-15-2023 Urate [Mass/Vol] 8.3 mg/dL 2.6-6.0 [facility] Comment on above: The drugs N-Acetylcy steine and Metamizole may falsely depress this assay. Thin prep Papanicolaou smear with manual screeningOrdered By: Deedee Cruz on 07-15-2023 Thin prep Papanicolaou smear with manual screening 8 5-15 [facility] Blood Glucose , Office ([phone])Ordered By: Lino Ivan on 04-12-2023 Glucose Glucometer (BldC) [Moles/Vol] 99 1 Normal [facility]; [facility] Work Phone: HgA1C , Office ([phone])Ordere d By: Lino Ivan on 04-12-2023 HbA1c (Bld) [Mass fraction] 5.4 % Normal 4.6 - 7.1 [facility]; [facility] Work Phone: CALCIFEDIOL ([phone])Ordered B y: News Photographer on 03-26-2023 25-hydroxyvitamin D [Mass/Vol] 35.7 ng/mL Normal 30.0-100.0 [facility]; [facility] Work Phone: Comment on above: Vitamin D deficiency has been defined by the [place] of[employer] and an Endocrine Society practice guideline as alevel of serum 25-OH vitamin D less than 20 ng/mL (1,2).The Endocrine Society went on to further define vitamin Dinsufficiency as a level between 21 and 29 ng/mL (2).1. IOM ([place] [employer]). 2010. Dietary reference intakes for calcium and D. [place]: The National Academies Press.2. Junior MF, Lisa ROE, Randolph RAHMAN, et al. Evaluation, treatment, and prevention of vitamin D deficiency: an Endocrine Society clinical practice guideline. JCEM. 2010; 96(7):1911-30. PATIENT WAS FASTINGP ERFORMED BY: [email or web address] [employer] [place] [id number] CBC with auto diff ([id number])Or dered By: News Photographer on 03-26-2023 Basophils (Bld) [#/Vol] 0.0 10*3/uL Normal 0.0-0.2 [facility]; [facility] Work Phone: Comment on above: PATIENT WAS FASTINGP ERFORMED BY: [id number] [place] [id number] Basophils/100 WBC (Bld) 0 % Normal [facility]; [facility] Work Phone: Comment on above: PATIENT WAS FASTINGP ERFORMED BY: CB [facility] [id number] [place] [id number] Eosinophils (Bld) [#/Vol] 0.1 10*3/uL Normal 0.0-0.4 [facility]; [facility] Work Phone: Comment on above: PATIENT WAS FASTINGP ERFORMED BY: CB [facility] [id number] [place] [id number] Eosinophils/100 WBC (Bld) 2 % Normal [facility]; [facility] Work Phone: Comment on above: PATIENT WAS FASTINGP ERFORMED BY: CB [facility] [id number] [place] [id number] Erythrocyte distribution width (RBC) [Ratio] 13.1 % Normal 11.7-15.4 [facility]; [facility] Work Phone: Comment on above: PATIENT WAS FASTINGP ERFORMED BY: [facility] [id number] [address]Dublin [place] [id number] Hematocrit (Bld) [Volume fraction] 36.5 % Normal 34.0-46.6 [facility]; [facility] Work Phone: Comment on above: PATIENT WAS FASTINGP ERFORMED BY: [facility] [id number] [place] [id number] Hemoglobin (Bld) [Mass/Vol] 11.9 g/dL Normal 11.1-15.9 [facility]; [facility] Work Phone: Comment on above: PATIENT WAS FASTINGP ERFORMED BY: CB [facility] [id number] [place] [id number] Immature granulocytes (Bld) [#/Vol] 0.0 10*3/uL Normal 0.0-0.1 [facility]; [facility] Work Phone: Comment on above: PATIENT WAS FASTINGP ERFORMED BY: CB [facility] [id number] [place] [id number] Immature granulocytes/100 WBC (Bld) 0 % Normal [facility]; [facility] Work Phone: Comment on above: PATIENT WAS FASTINGP ERFORMED BY: [facility] [id number] [place] [id number] Lymphocytes (Bld) [#/Vol] 1.4 10*3/uL Normal 0.7-3.1 [facility]; [facility] Work Phone: Comment on above: PATIENT WAS FASTINGP ERFORMED BY: [facility] [id number] [place] [id number] Lymphocytes/100 WBC (Bld) 27 % Normal [facility]; [facility] Work Phone: Comment on above: PATIENT WAS FASTINGP ERFORMED BY: [facility] [id number] [place] [id number] MCH (RBC) [Entitic mass] 27.5 pg Normal 26.6-33.0 [facility]; [facility] Work Phone: Comment on above: PATIENT WAS FASTINGP ERFORMED BY: [facility] Wulrzx0121 [address] RoadCone Health Medcenter High Pointin [place] [id number] MCHC (RBC) [Mass/Vol] 32.6 g/dL Normal 31.5-35.7 [facility] prehensive Internal Medicine; [facility] Work Phone: Comment on above: PATIENT WAS FASTINGP ERFORMED BY: [facility] Wwumbr[address] [facility] [place] [id number] MCV (RBC) [Entitic vol] 84 fL Normal 79-97 [facility]; [facility] Work Phone: Comment on above: PATIENT WAS FASTINGP ERFORMED BY: [facility] Rokqpe4758 Re[address] RoadDublin [place] [id number] Monocytes (Bld) [#/Vol] 0.3 10*3/uL Normal 0.1-0.9 [facility]; [facility] Work Phone: Comment on above: PATIENT WAS FASTINGP ERFORMED BY: [facility] Ridbvn8472 Re[address] RoadDublin [place] [id number] Monocytes/100 WBC (Bld) 6 % Normal [facility]; [facility] Work Phone: Comment on above: PATIENT WAS FASTINGP ERFORMED BY: SAUL Azamwoodrow Oamjil6060 [address] RoadDublin [place] [id number] Neutrophils (Bld) [#/Vol] 3.4 10*3/uL Normal 1.4-7.0 [facility]; [facility] Work Phone: Comment on above: PATIENT WAS FASTINGP ERFORMED BY: SAUL Blandonlin6370 [address] RoadDublin [place] [id number] Neutrophils/100 WBC (Bld) 65 % Normal [facility]; [facility] Work Phone: Comment on above: PATIENT WAS FASTINGP ERFORMED BY: SAUL Blandonlin6370 [address] RoadDublin [place] [id number] Platelets (Bld) [#/Vol] 256 10*3/uL Normal 150-450 [facility]; [facility] Work Phone: Comment on above: PATIENT WAS FASTINGP ERFORMED BY: SAUL Blandonlin6370 [address] RoadDublin [place] [id number] RBC (Bld) [#/Vol] 4.33 10*6/uL Normal 3.77-5.28 Compr ehensive Internal Medicine; [facility] Work Phone: Comment on above: PATIENT WAS FASTINGP ERFORMED BY: SAUL Blandonlin6370 [address] RoadDublin [place] [id number] WBC (Bld) [#/Vol] 5.2 10*3/uL Normal 3.4-10.8 [facility]; [facility] Work Phone: Comment on above: PATIENT WAS FASTINGP ERFORMED BY: SAUL Labwoodrow BlandonSjktxy4522 [address] RoadDublin [place] [id number] LIPID PANEL ([id number])Ordered B y: News Photographer on 03-26-2023 Cholesterol [Mass/Vol] 169 mg/dL Normal 100-199 [facility]; [facility] Work Phone: Comment on above: PATIENT WAS FASTINGP ERFORMED BY: CB [facility] Apdrye9135 [address] RoadDublin [place] [id number] Cholesterol in HDL [Mass/Vol] 48 mg/dL Normal [facility]; [facility] Work Phone: Comment on above: PATIENT WAS FASTINGP ERFORMED BY: SAUL [facility] Iooprd2941 [address] RoadDublin [place] [id number] Triglyceride [Mass/Vol] 89 mg/dL Normal 0-149 [facility]; [facility] Work Phone: Comment on above: PATIENT WAS FASTINGP ERFORMED BY: SAUL [facility] Ftpusw8007 [address] RoadDublin [place] [id number] LIPID PANEL ([id number]) 17 mg/dL Normal 5-40 [facility]; [facility] Work Phone: Comment on above: PATIENT WAS FASTINGP ERFORMED BY: SAUL Lab[facility] Csfomr9409 [address] RoadDublin [place] [id number] LIPID PANEL (40183) 104 mg/dL Abnormal 0-99 [facility]; [facility] Work Phone: Comment on above: PATIENT WAS FASTINGP ERFORMED BY: SAUL Lab[facility] Hkuguy5402 [address] RoadDublin [place] [id number] LIPID PANEL (00305) 2.2 {ratio} Normal 0.0-3.2 [facility]; [facility] Work Phone: Comment on above: LDL/HDL Ratio Men Wo men 1/2 Avg.Risk 1.0 1.5 Avg.Risk 3.6 3.2 2X Avg.Risk 6.2 5.0 3X Avg.Risk 8.0 6.1 PATIENT WAS FASTINGP ERFORMED BY: SAUL [facility] Fxwria7578 Re[address] RoadDublin [place] [id number] METABOLIC PANEL, COMPREHENSI VE ([id number])Ordered By: News Photographer on 03-26-2023 Albumin [Mass/Vol] 4.1 g/dL Normal 3.8-4.8 [facility] Internal Medicine; [facility] Work Phone: Comment on above: PATIENT WAS FASTINGP ERFORMED BY: SAUL [facility] Soobze7830 [address] RoadDublin [place] [id number] Albumin/Globulin [Mass ratio] 1.6 {ratio} Normal 1.2-2.2 [facility]; [facility] Work Phone: Comment on above: PATIENT WAS FASTINGP ERFORMED BY: SAUL [facility] Jthcmt1888 [address] RoadDublin [place] [id number] ALP [Catalytic activity/Vol] 105 U/L Normal 44-121 [facility]; [facility] Work Phone: Comment on above: PATIENT WAS FASTINGP ERFORMED BY: [facility] Jhbyrl3127 [address] RoadDublin [place] [id number] ALT [Catalytic activity/Vol] 24 U/L Normal 0-32 [facility]; [facility] Work Phone: Comment on above: PATIENT WAS FASTINGP ERFORMED BY: SAUL [facility] Vakuwd0116 [address] RoadDublin [place] [id number] AST [Catalytic activity/Vol] 19 U/L Normal 0-40 [facility]; [facility] Work Phone: Comment on above: PATIENT WAS FASTINGP ERFORMED BY: SAUL [facility] Qpboxf5946 [address] RoadDublin [place] [id number] Bilirubin [Mass/Vol] 0.4 mg/dL Normal 0.0-1.2 [facility] rehensive Internal Medicine; [facility] Work Phone: Comment on above: PATIENT WAS FASTINGP ERFORMED BY: [facility] Wsysfx2463 [address] RoadDublin [place] [id number] Calcium [Mass/Vol] 9.6 mg/dL Normal 8.7-10.3 [facility] Internal Medicine; [facility] Work Phone: Comment on above: PATIENT WAS FASTINGP ERFORMED BY: [facility] Dtimst8533 [address] RoadDublin [place] [id number] Chloride [Moles/Vol] 106 mmol/L Normal 96-106 Comp rehensive Internal Medicine; [facility] Work Phone: Comment on above: PATIENT WAS FASTINGP ERFORMED BY: SAUL [facility] Dpmqav9294 [address] RoadDublin [place] [id number] CO2 [Moles/Vol] 22 mmol/L Normal 20-29 [facility]; [facility] Work Phone: Comment on above: PATIENT WAS FASTINGP ERFORMED BY: [facility] Pmaask6366 [address] RoadDublin [place] [id number] Creatinine [Mass/Vol] 1.65 mg/dL Abnormal 0.57-1.00 [facility] prehensive Internal Medicine; [facility] Work Phone: Comment on above: PATIENT WAS FASTINGP ERFORMED BY: [facility] Hebxcc6526 [address] RoadDublin [place] [id number] GFR/1.73 sq M.predicted among non-blacks MDRD (S/P/Bld) [Vol rate/Area] 32 mL/min/{1.73_m2} Abnormal Comprehens e Internal Medicine; [facility] Work Phone: Comment on above: PATIENT WAS FASTINGP ERFORMED BY: [facility] Cieldo6204 [address] RoadDublin [place] [id number] Globulin (S) [Mass/Vol] 2.5 g/dL Normal 1.5-4.5 [facility] Internal Medicine; [facility] Work Phone: Comment on above: PATIENT WAS FASTINGP ERFORMED BY: [facility] Zbesrf4597 [address] RoadDublin [place] [id number] Glucose [Mass/Vol] 99 mg/dL Normal 70-99 [facility] Internal Medicine; [facility] Work Phone: Comment on above: PATIENT WAS FASTINGP ERFORMED BY: [facility] Fiqinz3842 [address] RoadDublin [place] [id number] Potassium [Moles/Vol] 4.7 mmol/L Normal 3.5-5.2 [facility] prehensive Internal Medicine; [facility] Work Phone: Comment on above: PATIENT WAS FASTINGP ERFORMED BY: [facility] Yxoyso0029 [address] RoadDublin [place] [id number] Protein [Mass/Vol] 6.6 g/dL Normal 6.0-8.5 [facility] Internal Medicine; [facility] Work Phone: Comment on above: PATIENT WAS FASTINGP ERFORMED BY: SAUL Catherine6370 [address]Dublin [place] [id number] Sodium [Moles/Vol] 143 mmol/L Normal 134-144 [facility] Internal Medicine; [facility] Work Phone: Comment on above: PATIENT WAS FASTINGP ERFORMED BY: SAUL Catherine6[address] RoadDublin [place] [id number] Urea nitrogen [Mass/Vol] 25 mg/dL Normal 8-27 [facility]; [facility] Work Phone: Comment on above: PATIENT WAS FASTINGP ERFORMED BY: SAUL Catherine6[address]Dublin [place] [id number] Urea nitrogen/Creatinine [Mass ratio] 15 mg/mg Normal 12-28 [facility]; [facility] Work Phone: Comment on above: PATIENT WAS FASTINGP ERFORMED BY: SAUL Catherine[address] [facility] HospitalDuin [place] [id number] MICROALBUMINOrdered By: Syst em Pattern Gater on 03-26-2023 Albumin DL <= 20 mg/L (U) [Mass/Vol] 12.9 ug/mL Normal [facility]; [facility] Work Phone: Comment on above: PATIENT WAS FASTINGP ERFORMED BY: SAUL Catherine[address] [facility]in [place] [id number] Albumin/Creatinine (U) [Mass ratio] 7 {mg/g_creat} Normal 0-29 [facility]; [facility] Work Phone: Comment on above: Normal: 0 - 29 Moder ately increased: 30 - 300 Severely increased: >300 PATIENT WAS FASTINGP ERFORMED BY: SAUL Blandonlin6370 [address] RoadDublin [place] [id number] Creatinine (U) [Mass/Vol] 179.4 mg/dL Normal [facility]; [facility] Work Phone: Comment on above: PATIENT WAS FASTINGP ERFORMED BY: CB Mapidy[address] [facility] [id number] TSH (THYROID STIMULATING HOR TONY) ([id number])Ordered By: News Photographer on 03-26-2023 TSH Qn 3.000 {uIU/mL} Normal 0.450-4.50 0 [facility]; [facility] Work Phone: Comment on above: PATIENT WAS FASTINGP ERFORMED BY: Neptune[address] [facility] [id number] VITAMIN B-12 (CYANOCOBALAMIN ) ([id number])Ordered By: News Photographer on 03-26-2023 Cobalamin (Vitamin B12) [Mass/Vol] 1320 pg/mL Abnormal 232-1245 [facility]; [facility] Work Phone: Comment on above: PATIENT WAS FASTINGP ERFORMED BY: Cyphort[address] [facility] [id number] Absolute lymphocyte counton 02-07-2022 Lymphocytes Auto (Unsp spec) [#/Vol] 1.29 10*3/uL 0.83-4.51 [facility] Work Phone: Basophil percentageon 2021 Basophils/100 WBC (Bld) 0.4 % 0-1 [facility] Work Phone: Bilirubin [Mass/Vol] 0.50 mg/dL 0.20-1.00 [facility] Work Phone: Comment on above: For patients on eltr ombopag therapy, use of Dimension [place] TBIL is not recommended. Chloride [Moles/Vol] 109 mmol/L 98-107 [facility] Work Phone: Eosinophils/100 WBC (Bld) 3.1 % 0-5 [facility] Work Phone: Glucose [Mass/Vol] 104 mg/dL 74-106 [facility] Work Phone: Comment on above: Fasting Glucose resu lt from 100 to 125 mg/dL suggests IMPAIRED HOMEOSTASIS per A.D.A. criteria. Neutrophils (Bld) [#/Vol] 3.3 10*3/uL 2.0-7.7 [facility] Work Phone: Neutrophils/100 WBC (Bld) 64.8 % 47-70 [facility] Work Phone: Potassium [Moles/Vol] 4.2 mmol/L 3.5-5.[address] [facility] Work Phone: Protein [Mass/Vol] 7.3 g/dL 6.4-8.2 [facility] Work Phone: Sodium [Moles/Vol] 140 mmol/L 136-145 [facility] Work Phone: WBC (Bld) [#/Vol] 5.1 10*3/uL 4.4-11.0 [facility] Work Phone: Blood erythrocytes count (nu mber/volume)on 02-07-2022 RBC (Bld) [#/Vol] 4.31 10*6/uL 4.2-5.4 [facility] Work Phone: Blood hemoglobin measurement (mass/volume)on 02-07-2022 Hemoglobin (Bld) [Mass/Vol] 12.1 g/dL 12.0-15.0 [facility] Work Phone: Blood lymphocytes/100 leukoc yteson 02-07-2022 Lymphocytes/100 WBC (Bld) 25.2 % 19-41 [facility] Work Phone: Blood monocytes/100 leukocyt eson 02-07-2022 Monocytes/100 WBC (Bld) 6.3 % 0-10 [facility] Work Phone: Blood platelet mean volumeon 02-07-2022 Platelet mean volume (Bld) [Entitic vol] 10.3 fL 6.2-12.0 [facility] Work Phone: Determination of erythrocyte mean corpuscular volume (MCV)on 02-07-2022 MCV (RBC) [Entitic vol] 87.5 fL 81-99 [facility] Work Phone: Erythrocyte sedimentation ra paulino 02-07-2022 ESR (Bld) [Velocity] 25 mm/h 0-30 [facility] Work Phone: Hematocrit Auto (Bld) [Volum e fraction]on 02-07-2022 Hematocrit (Bld) [Volume fraction] 37.7 % 37-47 [facility] Work Phone: Laboratory - Chemistry and C hemistry - challengeon 02-07-2022 ALP [Catalytic activity/Vol] 94 U/L 45-117 [facility] Work Phone: ALT [Catalytic activity/Vol] 28 U/L 13-56 [facility] Work Phone: CO2 [Moles/Vol] 25.0 mmol/L 21.0-32.0 [facility] Work Phone: Globulin (S) [Mass/Vol] 3.7 g/dL 2.2-4.2 [facility] Work Phone: Urea nitrogen/Creatinine [Mass ratio] 15.2 mg/mg 10-20 [facility] Work Phone: Laboratory - Hematology and Cell countson 02-07-2022 Erythrocyte distribution width (RBC) [Entitic vol] 43.2 fL 35.1-43.9 [facility] Work Phone: Erythrocyte distribution width (RBC) [Ratio] 13.4 % 11.6-14.6 [facility] Work Phone: Immature granulocytes/100 WBC (Bld) 0.200 % 0.0-0.9 [facility] Work Phone: Comment on above: IG% - Immature Granu locytes (promyelocytes, myelocytes and metamyelocytes) > 1% indicates that a LEFT SHIFT is Present. MCH (RBC) [Entitic mass] 28.1 pg 27.0-32.0 [facility] Work Phone: Nucleated RBC/100 WBC (Bld) [Ratio] 0 % 0-5 [facility] Work Phone: MCHC Auto (RBC) [Mass/Vol]on 02-07-2022 MCHC (RBC) [Mass/Vol] 32.1 g/dL 32-[address] [facility] Work Phone: No Panel Informationon 02-07 Estimated GFR (MDRD) Amer 40 mL/min >60 [facility] Work Phone: Comment on above: GFR Calc Estimated GFR (MDRD) Non-Af Amer 33 mL/min >60 [facility] Work Phone: Comment on above: Non- GFR Calc Platelets bldon 02-07-2022 Platelets (Bld) [#/Vol] 221 10*3/uL 150-450 [facility] Work Phone: Serum or plasma C reactive p rotein measurement (mass/volume)on 02-07-2022 CRP [Mass/Vol] 22.40 mg/L 0.0-3.0 [facility] Work Phone: Comment on above: C-Reactive Protein ( CRP) provides useful information for thediagnosis, therapy and monitoring of inflammatory processesand associated diseases. For the evaluation of Relative Riskfor Cardiovascular Disease, a High Sensitivity CRP (HSCRP)should be ordered. Serum or plasma albumin junior urement (mass/volume)on 02-07-2022 Albumin [Mass/Vol] 3.6 g/dL 3.2-5.0 [facility] Work Phone: Serum or plasma albumin/glob ulin mass ratioon 02-07-2022 Albumin/Globulin [Mass ratio] 1.0 {ratio} 0.9-2.4 [facility] Work Phone: Serum or plasma calcium junior urement (mass/volume)on 02-07-2022 Calcium [Mass/Vol] 9.4 mg/dL 8.5-10.1 [facility] Work Phone: Serum or plasma creatinine m easurement (mass/volume)on 02-07-2022 Creatinine [Mass/Vol] 1.64 mg/dL 0.55-1.[address] [facility] Work Phone: Comment on above: The validity of the calculated GFR & GFRAA in patients over 70 years has not been determined. Clinical correlation is essential. Serum or plasma urea nitroge n measurement (mass/volume)on 02-07-2022 Urea nitrogen [Mass/Vol] 25 mg/dL 7-18 [facility] Work Phone: Thin prep Papanicolaou smear with manual screeningon 02-07-2022 Thin prep Papanicolaou smear with manual screening 21 U/L 15-37 [facility] Work Phone: Thin prep Papanicolaou smear with manual screening 6 5-15 [facility] Work Phone: Blood Glucose , Office [phone] By: Edwina Braden on 01-24-2022 Glucose Glucometer (BldC) [Moles/Vol] 145 1 Normal [facility]; [facility] Work Phone: HgA1C , Office ([phone])Ordere d By: Edwina Braden on 01-24-2022 HbA1c (Bld) [Mass fraction] 5.5 % Normal 4.6 - 7.1 [facility]; [facility] Work Phone: Basophil percentageon 2021 Basophil percentage 2.8 mg/dL 2.5-4.9 [facility] Work Phone: Chloride [Moles/Vol] 111 mmol/L 98-107 [facility] Work Phone: Glucose [Mass/Vol] 105 mg/dL 74-106 [facility] Work Phone: Comment on above: Fasting Glucose resu lt from 100 to 125 mg/dL suggests IMPAIRED HOMEOSTASIS per A.D.A. criteria. Potassium [Moles/Vol] 4.1 mmol/L 3.5-5.[address] [facility] Work Phone: Sodium [Moles/Vol] 142 mmol/L 136-145 [facility] Work Phone: Laboratory - Chemistry and C hemistry - challengeon 11-22-2021 CO2 [Moles/Vol] 24.0 mmol/L 21.0-32.0 [facility] Work Phone: Urea nitrogen/Creatinine [Mass ratio] 24.5 mg/mg 10-20 [facility] Work Phone: No Panel Informationon 11-22 Estimated GFR (MDRD) Amer 48 mL/min >60 [facility] Work Phone: Comment on above: GFR Calc Estimated GFR (MDRD) Non-Af Amer 40 mL/min >60 [facility] Work Phone: Comment on above: Non- GFR Calc Serum or plasma albumin junior urement (mass/volume)on 11-22-2021 Albumin [Mass/Vol] 3.4 g/dL 3.2-5.0 [facility] Work Phone: Serum or plasma calcium junior urement (mass/volume)on 11-22-2021 Calcium [Mass/Vol] 8.7 mg/dL 8.5-10.1 [facility] Work Phone: Serum or plasma complement C 3 measurement (mass/volume)on 11-22-2021 Complement C3 [Mass/Vol] 133 mg/dL 82-167 [facility] Work Phone: Comment on above: Performed at: [address] [id number] Director: Adan Doll PhD, Phone: [phone] Serum or plasma complement C 4 measurement (mass/volume)on 11-22-2021 Complement C4 [Mass/Vol] 37 mg/dL 12-38 [facility] Work Phone: Serum or plasma creatinine m easurement (mass/volume)on 11-22-2021 Creatinine [Mass/Vol] 1.39 mg/dL 0.55-1.[address] [facility] Work Phone: Comment on above: The validity of the calculated GFR & GFRAA in patients over 70 years has not been determined. Clinical correlation is essential. Serum or plasma urea nitroge n measurement (mass/volume)on 04-27-2022 Urea nitrogen [Mass/Vol] 34 mg/dL 7-18 [facility] Work Phone: Absolute lymphocyte counton 10-25-2021 Lymphocytes Auto (Unsp spec) [#/Vol] 1.39 10*3/uL 0.83-4.51 [facility] Work Phone: Basophil percentageon 2021 Basophils/100 WBC (Bld) 0.3 % 0-1 [facility] Work Phone: Bilirubin [Mass/Vol] 0.50 mg/dL 0.20-1.00 [facility] Work Phone: Comment on above: For patients on eltr ombopag therapy, use of Dimension [place] TBIL is not recommended. Chloride [Moles/Vol] 108 mmol/L 98-107 [facility] Work Phone: Eosinophils/100 WBC (Bld) 3.1 % 0-5 [facility] Work Phone: Glucose [Mass/Vol] 91 mg/dL 74-106 [facility] Work Phone: Neutrophils (Bld) [#/Vol] 3.8 10*3/uL 2.0-7.7 [facility] Work Phone: Neutrophils/100 WBC (Bld) 65.5 % 47-70 [facility] Work Phone: Potassium [Moles/Vol] 4.0 mmol/L 3.5-5.[address] [facility] Work Phone: Protein [Mass/Vol] 7.5 g/dL 6.4-8.2 [facility] Work Phone: Sodium [Moles/Vol] 140 mmol/L 136-145 [facility] Work Phone: WBC (Bld) [#/Vol] 5.8 10*3/uL 4.4-11.0 [facility] Work Phone: Bilirubin Test strip Ql (U)o n 10-25-2021 Bilirubin Ql (U) Negative Negative [facility] Work Phone: Blood erythrocytes count (nu mber/volume)on 10-25-2021 RBC (Bld) [#/Vol] 4.25 10*6/uL 4.2-5.4 [facility] Work Phone: Blood hemoglobin measurement (mass/volume)on 10-25-2021 Hemoglobin (Bld) [Mass/Vol] 12.3 g/dL 12.0-15.0 [facility] Work Phone: Blood lymphocytes/100 leukoc yteson 10-25-2021 Lymphocytes/100 WBC (Bld) 24.0 % 19-41 [facility] Work Phone: Blood monocytes/100 leukocyt eson 10-25-2021 Monocytes/100 WBC (Bld) 6.4 % 0-10 [facility] Work Phone: Blood platelet mean volumeon 10-25-2021 Platelet mean volume (Bld) [Entitic vol] 10.6 fL 6.2-12.0 [facility] Work Phone: Determination of erythrocyte mean corpuscular volume (MCV)on 10-25-2021 MCV (RBC) [Entitic vol] 87.1 fL 81-99 [facility] Work Phone: Dilute Jesus's viper venom timeon 10-25-2021 dRVVT Coag (PPP) [Time] 32.6 s 0.0-47.0 [facility] Work Phone: Erythrocyte sedimentation ra paulino 10-25-2021 ESR (Bld) [Velocity] 34 mm/h 0-30 [facility] Work Phone: Hematocrit Auto (Bld) [Volum e fraction]on 10-25-2021 Hematocrit (Bld) [Volume fraction] 37.0 % 37-47 [facility] Work Phone: INR in Blood by Coagulation assayon 10-25-2021 INR Coag (Bld) [Relative time] 1.0 {INR} [facility] Work Phone: Ketones Test strip Ql (U)on 10-25-2021 Ketones Ql (U) Negative Negative [facility] Work Phone: Laboratory - Chemistry and C hemistry - challengeon 10-25-2021 ALP [Catalytic activity/Vol] 107 U/L 45-117 [facility] Work Phone: ALT [Catalytic activity/Vol] 108 U/L 13-56 [facility] Work Phone: CO2 [Moles/Vol] 25.0 mmol/L 21.0-32.0 [facility] Work Phone: Globulin (S) [Mass/Vol] 3.8 g/dL 2.2-4.2 [facility] Work Phone: Urea nitrogen/Creatinine [Mass ratio] 26.3 mg/mg 10-20 [facility] Work Phone: Laboratory - Coagulationon 0 10-25-2021 aPTT Coag (Bld) [Time] 29.2 s 24.1-36.2 [facility] Work Phone: PT Coag (PPP) [Time] 12.9 s 11.7-14.9 [facility] Work Phone: Laboratory - Hematology and Cell countson 10-25-2021 Erythrocyte distribution width (RBC) [Entitic vol] 43.6 fL 35.1-43.9 [facility] Work Phone: Erythrocyte distribution width (RBC) [Ratio] 13.6 % 11.6-14.6 [facility] Work Phone: Immature granulocytes/100 WBC (Bld) 0.700 % 0.0-0.9 [facility] Work Phone: Comment on above: IG% - Immature Granu locytes (promyelocytes, myelocytes and metamyelocytes) > 1% indicates that a LEFT SHIFT is Present. MCH (RBC) [Entitic mass] 28.9 pg 27.0-32.0 [facility] Work Phone: Nucleated RBC/100 WBC (Bld) [Ratio] 0 % 0-5 [facility] Work Phone: Laboratory - Miscellaneous t estson 10-25-2021 Service comment (Unsp spec) [Interp] Comment . [facility] Work Phone: Comment on above: Results do not indic ate the presence of a LupusAnticoagulant: abnormal high screening results (PTT-LA,dRVVT, mixing studies), may be due to medication (heparin,warfarin, aspirin), Factor inhibitors, anticardiolipinantibodies, or poor specimen integrity.Performed at: [facility] Lab[address] [id number] Director: Tom Hicks MD, Phone: [phone] MCHC Auto (RBC) [Mass/Vol]on 10-25-2021 MCHC (RBC) [Mass/Vol] 33.2 g/dL 32-[address] [facility] Work Phone: Nitrite Test strip Ql (U)on 10-25-2021 Nitrite Ql (U) Negative Negative [facility] Work Phone: No Panel Informationon 10-25 Estimated GFR (MDRD) Amer 49 mL/min >60 [facility] Work Phone: Comment on above: GFR Calc Estimated GFR (MDRD) Non-Af Amer 40 mL/min >60 [facility] Work Phone: Comment on above: Non- GFR Calc Miscellaneous Test Comment MAILED SPECIMEN [facility] Work Phone: Platelets bldon 10-25-2021 Platelets (Bld) [#/Vol] 244 10*3/uL 150-450 [facility] Work Phone: Protein Test strip Ql (U)on 10-25-2021 Protein Ql (U) Negative Negative [facility] Work Phone: Serum or plasma C reactive p rotein measurement (mass/volume)on 10-25-2021 CRP [Mass/Vol] 21.50 mg/L 0.0-3.0 [facility] Work Phone: Comment on above: C-Reactive Protein ( CRP) provides useful information for thediagnosis, therapy and monitoring of inflammatory processesand associated diseases. For the evaluation of Relative Riskfor Cardiovascular Disease, a High Sensitivity CRP (HSCRP)should be ordered. Serum or plasma albumin junior urement (mass/volume)on 10-25-2021 Albumin [Mass/Vol] 3.7 g/dL 3.2-5.0 [facility] Work Phone: Serum or plasma albumin/glob ulin mass ratioon 10-25-2021 Albumin/Globulin [Mass ratio] 1.0 {ratio} 0.9-2.4 [facility] Work Phone: Serum or plasma calcium junior urement (mass/volume)on 10-25-2021 Calcium [Mass/Vol] 9.1 mg/dL 8.5-10.1 [facility] Work Phone: Serum or plasma creatinine m easurement (mass/volume)on 10-25-2021 Creatinine [Mass/Vol] 1.37 mg/dL 0.55-1.[address] [facility] Work Phone: Comment on above: The validity of the calculated GFR & GFRAA in patients over 70 years has not been determined. Clinical correlation is essential. Serum or plasma urea nitroge n measurement (mass/volume)on 10-25-2021 Urea nitrogen [Mass/Vol] 36 mg/dL 7-18 [facility] Work Phone: Thin prep Papanicolaou smear with manual screeningon 10-25-2021 Thin prep Papanicolaou smear with manual screening 39 U/L 15-37 [facility] Work Phone: Thin prep Papanicolaou smear with manual screening 7 5-15 [facility] Work Phone: Thin prep Papanicolaou smear with manual screening 32.4 sec 0.0-47.6 [facility] Work Phone: Thin prep Papanicolaou smear with manual screening 1.13 Ratio 0.00-1.34 [facility] Work Phone: Thin prep Papanicolaou smear with manual screening 34.4 sec 0.0-51.9 [facility] Work Phone: Thin prep Papanicolaou smear with manual screening Comment: . [facility] Work Phone: Comment on above: No lupus anticoagula nt was detected. Thrombin time in platelet po or plasmaon 10-25-2021 Thrombin time Coag (PPP) [Time] 17.2 sec 0.0-23.0 [facility] Work Phone: Comment on above: Performed at: [facility] [employer] [id number] Director: Tom Hicks MD, Phone: [phone] Urine blood detectionon 09-28 RBC Ql (U) 25 /ul Negative [facility] Work Phone: Urine clarityon 10-25-2021 Clarity (U) Clear Clear [facility] Work Phone: Urine color determinationon 10-25-2021 Color (U) Yellow Yellow [facility] Work Phone: Urine creatinine measurement (mass/volume)on 10-25-2021 Creatinine (U) [Mass/Vol] 90.50 mg/dL NO RANGE EST. [facility] Work Phone: Urine glucose detectionon Glucose Ql (U) Normal mg/dl Normal [facility] Work Phone: Urine leukocyte esterase det ection by dipstickon 10-25-2021 Leukocyte esterase Test strip Ql (U) Negative Negative [facility] Work Phone: Urine pHon 10-25-2021 pH (U) 5.0 [pH] 5.0 - 8.0 [facility] Work Phone: Urine protein measurement (m ass/volume)on 10-25-2021 Protein (U) [Mass/Vol] 8.2 mg/dL 0.0-11.8 [facility] Work Phone: Urine protein/creatinine mas s ratioon 10-25-2021 Protein/Creatinine (U) [Mass ratio] 91 mg/g CRE 0-200 [facility] Work Phone: Urine specific gravity measu rementon 10-25-2021 Specific gravity (U) [Rel density] 1.020 1.002-1.03 0 [facility] Work Phone: Urobilinogen Auto test strip Ql (U)on 10-25-2021 Urobilinogen Ql (U) Normal mg/dl Normal [facility] Work Phone: Blood Glucose , Office ([phone])Ordered By: Valarie Goodman on 10-24-2021 Glucose Glucometer (BldC) [Moles/Vol] 176 1 Normal [facility] Work Phone: FERRITIN ([phone])Ordered By: News Photographer on 10-24-2021 Ferritin [Mass/Vol] 162 ng/mL Abnormal 15-150 Compr ehens[facility]; [facility] Work Phone: Comment on above: PATIENT NOT FASTINGP ERFORMED BY: SAUL LabAvantCreditrp Qwfcqj9405 [address] 3VRin [place] [id number] HgA1C , Office ([phone])Ordere d By: Edwina Braden on 10-24-2021 HbA1c (Bld) [Mass fraction] 5.2 % Normal 4.6 - 7.1 [facility] Work Phone: IRON & TOTAL IRON BINDING CA PACITY ([phone])Ordered By: News Photographer on 10-24-2021 Iron [Mass/Vol] 49 ug/dL Normal 27-139 Comprehen [facility]; [facility] Work Phone: Comment on above: PATIENT NOT FASTINGP ERFORMED BY: CB [facility] Uunndm94[address] [place] [id number] Iron binding capacity [Mass/Vol] 280 ug/dL Normal 250-450 [facility]; [facility] Work Phone: Comment on above: PATIENT NOT FASTINGP ERFORMED BY: CB [facility] Qnejnf1487 [address] [place] [place] [id number] Iron binding capacity.unsaturated [Mass/Vol] 231 ug/dL Normal 118-369 [facility]; [facility] Work Phone: Comment on above: PATIENT NOT FASTINGP ERFORMED BY: SAUL KargoCard Ctkkkm24[address] [facility] [id number] Iron saturation [Mass fraction] 18 % Normal 15-55 [facility]; [facility] Work Phone: Comment on above: PATIENT NOT FASTINGP ERFORMED BY: SAUL [employer] Ifsdxj5454 [facility] [id number] VITAMIN B12 AND FOLATES (826 07)Ordered By: News Photographer on 10-24-2021 Cobalamin (Vitamin B12) [Mass/Vol] 1136 pg/mL Normal 232-1245 [facility]; [facility] Work Phone: Comment on above: PATIENT NOT FASTINGP ERFORMED BY: [employer] Rwqgws77[address] [facility] [id number] Folate [Mass/Vol] 5.5 ng/mL Normal Compreh ensive [facility]; [facility] Work Phone: Comment on above: A serum folate tamiko ntration of less than 3.1 ng/mL isconsidered to represent clinical deficiency. PATIENT NOT FASTINGP ERFORMED BY: SAUL [employer] Vhymss4775 [facility] [id number] Absolute lymphocyte counton 10-19-2021 Lymphocytes Auto (Unsp spec) [#/Vol] 1.52 10*3/uL 0.83-4.51 [facility] Work Phone: Basophil percentageon 2021 Basophils/100 WBC (Bld) 0.4 % 0-1 [facility] Work Phone: Chloride [Moles/Vol] 116 mmol/L 98-107 [facility] Work Phone: Eosinophils/100 WBC (Bld) 2.4 % 0-5 [facility] Work Phone: Glucose [Mass/Vol] 103 mg/dL 74-106 [facility] Work Phone: Comment on above: Fasting Glucose resu lt from 100 to 125 mg/dL suggests IMPAIRED HOMEOSTASIS per A.D.A. criteria. Neutrophils (Bld) [#/Vol] 2.6 10*3/uL 2.0-7.7 [facility] Work Phone: Neutrophils/100 WBC (Bld) 57.3 % 47-70 [facility] Work Phone: Potassium [Moles/Vol] 4.3 mmol/L 3.5-5.[address] [facility] Work Phone: Sodium [Moles/Vol] 142 mmol/L 136-145 [facility] Work Phone: WBC (Bld) [#/Vol] 4.6 10*3/uL 4.4-11.0 [facility] Work Phone: Blood erythrocytes count (nu mber/volume)on 10-19-2021 RBC (Bld) [#/Vol] 3.69 10*6/uL 4.2-5.4 [facility] Work Phone: Blood hemoglobin measurement (mass/volume)on 10-19-2021 Hemoglobin (Bld) [Mass/Vol] 10.6 g/dL 12.0-15.0 [facility] Work Phone: Blood lymphocytes/100 leukoc yteson 10-19-2021 Lymphocytes/100 WBC (Bld) 33.0 % 19-41 [facility] Work Phone: Blood monocytes/100 leukocyt eson 10-19-2021 Monocytes/100 WBC (Bld) 6.7 % 0-10 [facility] Work Phone: Blood platelet mean volumeon 10-19-2021 Platelet mean volume (Bld) [Entitic vol] 10.2 fL 6.2-12.0 [facility] Work Phone: Determination of erythrocyte mean corpuscular volume (MCV)on 10-19-2021 MCV (RBC) [Entitic vol] 87.0 fL 81-99 [facility] Work Phone: Hematocrit Auto (Bld) [Volum e fraction]on 10-19-2021 Hematocrit (Bld) [Volume fraction] 32.1 % 37-47 [facility] Work Phone: Laboratory - Chemistry and C hemistry - challengeon 10-19-2021 CO2 [Moles/Vol] 22.0 mmol/L 21.0-32.0 [facility] Work Phone: Urea nitrogen/Creatinine [Mass ratio] 21.4 mg/mg 10-20 [facility] Work Phone: Laboratory - Hematology and Cell countson 10-19-2021 Erythrocyte distribution width (RBC) [Entitic vol] 44.1 fL 35.1-43.9 [facility] Work Phone: Erythrocyte distribution width (RBC) [Ratio] 13.8 % 11.6-14.6 [facility] Work Phone: Immature granulocytes/100 WBC (Bld) 0.200 % 0.0-0.9 [facility] Work Phone: Comment on above: IG% - Immature Granu locytes (promyelocytes, myelocytes and metamyelocytes) > 1% indicates that a LEFT SHIFT is Present. MCH (RBC) [Entitic mass] 28.7 pg 27.0-32.0 [facility] Work Phone: Nucleated RBC/100 WBC (Bld) [Ratio] 0 % 0-5 [facility] Work Phone: MCHC Auto (RBC) [Mass/Vol]on 10-19-2021 MCHC (RBC) [Mass/Vol] 33.0 g/dL 32-[address] [facility] Work Phone: No Panel Informationon 10-19 Estimated Creatinine Clearance Calc 34.00 ml/min [facility] Work Phone: Estimated GFR (MDRD) Amer 48 mL/min >60 [facility] Work Phone: Comment on above: GFR Calc Estimated GFR (MDRD) Non-Af Amer 39 mL/min >60 [facility] Work Phone: Comment on above: Non- GFR Calc Platelets bldon 10-19-2021 Platelets (Bld) [#/Vol] 198 10*3/uL 150-450 [facility] Work Phone: Serum or plasma calcium junior urement (mass/volume)on 10-19-2021 Calcium [Mass/Vol] 8.1 mg/dL 8.5-10.1 oste r [facility] Work Phone: Serum or plasma creatinine m easurement (mass/volume)on 10-19-2021 Creatinine [Mass/Vol] 1.40 mg/dL 0.55-1.02 Ramirez ster [facility] Work Phone: Comment on above: The validity of the calculated GFR & GFRAA in patients over 70 years has not been determined. Clinical correlation is essential. Serum or plasma urea nitroge n measurement (mass/volume)on 10-19-2021 Urea nitrogen [Mass/Vol] 30 mg/dL 7-18 [facility] Work Phone: Thin prep Papanicolaou smear with manual screeningon 10-19-2021 Thin prep Papanicolaou smear with manual screening 4 5-15 [facility] Work Phone: No Panel Informationon 10-18 Troponin I High Sensitivity 11 pg/mL 3.0-54.0 [facility] Work Phone: Comment on above: Please Note: [place] t Units and Gender Specific Reference Ranges. For more information see Policy Stat Procedure [place] High Sensitivity Troponin (TNIH) and attachments. Metabolic Panel, Comprehensi ve (10679)Ordered By: News Photographer on 10-16-2021 Albumin [Mass/Vol] 4.3 g/dL Normal 3.7-4.7 Compre [facility]; [facility] Work Phone: Comment on above: PATIENT WAS FASTINGP ERFORMED BY: [facility]coCl[facility] CenterUhcusl5467 [facility] [id number] Albumin/Globulin [Mass ratio] 1.7 {ratio} Normal 1.2-2.2 [facility]; [facility] Work Phone: Comment on above: PATIENT WAS FASTINGP ERFORMED BY: CB [facility] Uofimb3730 [address] RoadDublin [place] [id number] ALP [Catalytic activity/Vol] 100 U/L Normal 44-121 [facility]; [facility] Work Phone: Comment on above: PATIENT WAS FASTINGP ERFORMED BY: CB [facility] Hxctme1957 [address] RoadDublin [place] [id number] ALT [Catalytic activity/Vol] 19 U/L Normal 0-32 [facility]; [facility] Work Phone: Comment on above: PATIENT WAS FASTINGP ERFORMED BY: CB [facility] Fiqold1824 [address] RoadDublin [place] [id number] AST [Catalytic activity/Vol] 20 U/L Normal 0-40 [facility]; [facility] Work Phone: Comment on above: PATIENT WAS FASTINGP ERFORMED BY: CB [facility] Bkaajh9453 [address] RoadDublin [place] [id number] Bilirubin [Mass/Vol] 0.4 mg/dL Normal 0.0-1.2 Comp rehensive [facility]; [facility] Work Phone: Comment on above: PATIENT WAS FASTINGP ERFORMED BY: [facility] Vgpekk8688 [address] RoadDublin [place] [id number] Calcium [Mass/Vol] 9.1 mg/dL Normal 8.7-10.3 [facility]; [facility] Work Phone: Comment on above: PATIENT WAS FASTINGP ERFORMED BY: CB [facility] Ageiie9385 [address] RoadDublin [place] [id number] Chloride [Moles/Vol] 108 mmol/L Abnormal 96-106 Comp rehensive [facility]; [facility] Work Phone: Comment on above: PATIENT WAS FASTINGP ERFORMED BY: CB [facility] Ofrcdh1781 [address] RoadDublin [place] [id number] CO2 [Moles/Vol] 20 mmol/L Normal 20-29 Comprehen sive [facility]; [facility] Work Phone: Comment on above: PATIENT WAS FASTINGP ERFORMED BY: SAUL Labcodeb Qtogky2135 [address] RoadDublin [place] [id number] Creatinine [Mass/Vol] 1.32 mg/dL Abnormal 0.57-1.00 [facility] prehensive Internal Medicine; [facility] Work Phone: Comment on above: PATIENT WAS FASTINGP ERFORMED BY: SAUL [facility] Ihqbau7[address] [facility] [place] [id number] GFR/1.73 sq M.predicted among non-blacks MDRD (S/P/Bld) [Vol rate/Area] 43 mL/min/{1.73_m2} Abnormal Comprehensiv e [facility]; [facility] Work Phone: Comment on above: PATIENT WAS FASTINGP ERFORMED BY: SAUL Labcodeb Ujvxph7974 [address] [facility] [id number] Globulin (S) [Mass/Vol] 2.5 g/dL Normal 1.5-4.5 [facility]; [facility] Work Phone: Comment on above: PATIENT WAS FASTINGP ERFORMED BY: SAUL [facility] Legjye9385 [address] RoadDublin [place] [id number] Glucose [Mass/Vol] 107 mg/dL Abnormal 65-99 [facility]; [facility] Work Phone: Comment on above: PATIENT WAS FASTINGP ERFORMED BY: SAUL [facility] Auudvn3128 [address] [facility] [place] [id number] Potassium [Moles/Vol] 4.4 mmol/L Normal 3.5-5.2 [facility] prehensive Internal Medicine; [facility] Work Phone: Comment on above: PATIENT WAS FASTINGP ERFORMED BY: SAUL [facility] Xrptyc3735 [address] [facility] Hospitalblin [place] [id number] Protein [Mass/Vol] 6.8 g/dL Normal 6.0-8.5 [facility]; [facility] Work Phone: Comment on above: PATIENT WAS FASTINGP ERFORMED BY: SAUL [facility] Qgrowx5368 [address] [facility] [id number] Sodium [Moles/Vol] 142 mmol/L Normal 134-144 [facility]; [facility] Work Phone: Comment on above: PATIENT WAS FASTINGP ERFORMED BY: SAUL [facility] Shddzt7017 [address] [email or web address] [place] [id number] Urea nitrogen [Mass/Vol] 29 mg/dL Abnormal 8-27 [facility]; [facility] Work Phone: Comment on above: PATIENT WAS FASTINGP ERFORMED BY: SAUL [facility] Jaclqu0362 Re[address] RoadDuNorth Carolina Specialty Hospital [id number] Urea nitrogen/Creatinine [Mass ratio] 22 mg/mg Normal 12- [facility]; [facility] Work Phone: Comment on above: PATIENT WAS FASTINGP ERFORMED BY: SAUL [facility] Bjtfge4981 [address] [facility] [id number] Blood Glucose , Office ([phone])Ordered By: Valarie Goodman on 04-25-2021 Glucose Glucometer (BldC) [Moles/Vol] 141 1 Normal [facility]; [facility] Work Phone: HgA1C , Office ([phone])Ordere d By: Valarie Goodman on 04-25-2021 HbA1c (Bld) [Mass fraction] 5.1 % Normal 4.6 - 7.1 [facility]; [facility] Work Phone: MICROALBUMINOrdered By: Syst em Pattern Gater on 04-17-2021 Albumin DL <= 20 mg/L (U) [Mass/Vol] 5.6 ug/mL Normal [facility]; [facility] Work Phone: Comment on above: PATIENT WAS FASTINGP ERFORMED BY: SAUL LabCo Cursvx[address] [facility] [id number] Albumin/Creatinine (U) [Mass ratio] 4 {mg/g_creat} Normal 0-29 [facility]; [facility] Work Phone: Comment on above: Normal: 0 - 29 Moder ately increased: 30 - 300 Severely increased: >300 PATIENT WAS FASTINGP ERFORMED BY: CB [facility] Rlmhia5341 [address] RoadDublin [place] [id number] Creatinine (U) [Mass/Vol] 153.6 mg/dL Normal [facility]; [facility] Work Phone: Comment on above: PATIENT WAS FASTINGP ERFORMED BY: CB [facility] Edbjdi4733 [address] RoadDublin [place] [id number] Metabolic Panel, Comprehensi ve ([id number])Ordered By: News Photographer on 04-17-2021 Albumin [Mass/Vol] 4.2 g/dL Normal 3.7-4.7 [facility]; [facility] Work Phone: Comment on above: PATIENT WAS FASTINGP ERFORMED BY: SAUL [facility] Ovmnui8616 [address] RoadDublin [place] [id number] Albumin/Globulin [Mass ratio] 1.6 {ratio} Normal 1.2-2.2 [facility]; [facility] Work Phone: Comment on above: PATIENT WAS FASTINGP ERFORMED BY: CB [facility] Fozjnk0644 [address] RoadDublin [place] [id number] ALP [Catalytic activity/Vol] 107 U/L Normal 44-121 [facility]; [facility] Work Phone: Comment on above: Please note refere nce interval change PATIENT WAS FASTINGP ERFORMED BY: CB [facility] Emboeu2704 [address] RoadDublin [place] [id number] ALT [Catalytic activity/Vol] 23 U/L Normal 0-32 [facility]; [facility] Work Phone: Comment on above: PATIENT WAS FASTINGP ERFORMED BY: CB [facility] Pmzsgi3089 [address] RoadDublin [place] [id number] AST [Catalytic activity/Vol] 20 U/L Normal 0-40 [facility]; [facility] Work Phone: Comment on above: PATIENT WAS FASTINGP ERFORMED BY: CB [facility] Pbqlno2912 [address] RoadDublin [place] [id number] Bilirubin [Mass/Vol] 0.6 mg/dL Normal 0.0-1.2 Comp rehensive [facility]; [facility] Work Phone: Comment on above: PATIENT WAS FASTINGP ERFORMED BY: [facility] [facility] [id number] Calcium [Mass/Vol] 9.5 mg/dL Normal 8.7-10.3 [facility]; [facility] Work Phone: Comment on above: PATIENT WAS FASTINGP ERFORMED BY: [facility] [facility] [id number] Chloride [Moles/Vol] 106 mmol/L Normal 96-106 Comp rehensive [facility]; [facility] Work Phone: Comment on above: PATIENT WAS FASTINGP ERFORMED BY: [facility] [facility] [id number] CO2 [Moles/Vol] 21 mmol/L Normal 20-29 [facility]; [facility] Work Phone: Comment on above: PATIENT WAS FASTINGP ERFORMED BY: [facility] [facility] [id number] Creatinine [Mass/Vol] 1.41 mg/dL Abnormal 0.57-1.00 [facility] prehensive Internal Medicine; [facility] Work Phone: Comment on above: PATIENT WAS FASTINGP ERFORMED BY: [facility] [facility] [id number] GFR/1.73 sq M.predicted among blacks CKD-EPI (S/P/Bld) [Vol rate/Area] 43 mL/min/1.73 Abnormal [facility]; [facility] Work Phone: Comment on above: [facility] currently reports eGFR in compliance with the current recommendations of the National Kidney Foundation. [facility] will update reporting as new guidelines are published from the NKF-ASN Task force. PATIENT WAS FASTINGP ERFORMED BY: [facility] [facility] [id number] GFR/1.73 sq M.predicted among non-blacks CKD-EPI (S/P/Bld) [Vol rate/Area] 37 mL/min/1.73 Abnormal [facility]; [facility] Work Phone: Comment on above: PATIENT WAS FASTINGP ERFORMED BY: SAUL Floyd Ikmuwy7590 [address] Roadblin [place] [id number] Globulin (S) [Mass/Vol] 2.6 g/dL Normal 1.5-4.5 [facility]; [facility] Work Phone: Comment on above: PATIENT WAS FASTINGP ERFORMED BY: SAUL LabL[facility] Cpdhlp4656 Re[address] Roadblin [place] [id number] Glucose [Mass/Vol] 106 mg/dL Abnormal 65-99 [facility]; [facility] Work Phone: Comment on above: PATIENT WAS FASTINGP ERFORMED BY: SAUL LabLaf[facility] Fosqrg4100 Re[address] RoadCone Health Medcenter High Pointin [place] [id number] Potassium [Moles/Vol] 4.5 mmol/L Normal 3.5-5.2 [facility]; [facility] Work Phone: Comment on above: PATIENT WAS FASTINGP ERFORMED BY: SAUL LabL[facility] Bnvutf5559 [address] [facility]in [place] [id number] Protein [Mass/Vol] 6.8 g/dL Normal 6.0-8.5 [facility]; [facility] Work Phone: Comment on above: PATIENT WAS FASTINGP ERFORMED BY: [facility] Cfwqaf7895 [address] [facility]in [place] [id number] Sodium [Moles/Vol] 142 mmol/L Normal 134-144 [facility]; [facility] Work Phone: Comment on above: PATIENT WAS FASTINGP ERFORMED BY: SAUL LabL[facility] Kmtvet3904 [address] RoadDublin [place] [id number] Urea nitrogen [Mass/Vol] 37 mg/dL Abnormal 8-27 [facility]; [facility] Work Phone: Comment on above: PATIENT WAS FASTINGP ERFORMED BY: SAUL LabUniversity [facility] [place] [id number] Urea nitrogen/Creatinine [Mass ratio] 26 mg/mg Normal 12-28 [facility]; [facility] Work Phone: Comment on above: PATIENT WAS FASTINGP ERFORMED BY: [employer] Lkagci0281 [address] RoadDublin [place] [id number] VITAMIN B12 AND FOLATES (826 07)Ordered By: News Photographer on 04-17-2021 Cobalamin (Vitamin B12) [Mass/Vol] 1020 pg/mL Normal 232-1245 [facility]; [facility] Work Phone: Comment on above: PATIENT WAS FASTINGP ERFORMED BY: Bambisa[address] [place] [id number] Folate [Mass/Vol] 11.0 ng/mL Normal [facility]pre[facility]; [facility] Work Phone: Comment on above: A serum folate tamiko ntration of less than 3.1 ng/mL isconsidered to represent clinical deficiency. PATIENT WAS FASTINGP ERFORMED BY: [employer] Bnamij4306 [address] [email or web address] [id number] HGB A1C ([id number])Ordered By: Kelsi liaotem Pattern Gater on 01-03-2021 HbA1c (Bld) [Mass fraction] 5.8 % Abnormal 4.8-5.6 [facility]; [facility] Work Phone: Comment on above: . Prediabetes: 5.7 - 6.4 Diabetes: >6.4 Glycemic control for adults with diabetes: <7.0 PATIENT NOT FASTINGP ERFORMED BY: [employer] Irpllm8180 [address] [email or web address] [place] [id number] RENAL FUNCTION PANEL ([id number]) Ordered By: News Photographer on 01-03-2021 Albumin [Mass/Vol] 4.3 g/dL Normal 3.7-4.7 Compre [facility]; [facility] Work Phone: Comment on above: PATIENT NOT FASTINGP ERFORMED BY: Little Pim Aqjwky7907 Rehman Bookmytrainings.comDublin [place] [id number] Calcium [Mass/Vol] 9.4 mg/dL Normal 8.7-10.3 [facility]; [facility] Work Phone: Comment on above: PATIENT NOT FASTINGP ERFORMED BY: LabCo Iioxcr0[address] [facility] [id number] Chloride [Moles/Vol] 108 mmol/L Abnormal 96-106 Comp rehensive Internal Medicine; [facility] Work Phone: Comment on above: PATIENT NOT FASTINGP ERFORMED BY: LabCoClara [facility] Medical CenterCugjxj8299 Rehman [facility] [id number] CO2 [Moles/Vol] 23 mmol/L Normal 20-29 [facility]; [facility] Work Phone: Comment on above: PATIENT NOT FASTINGP ERFORMED BY: LabCo Cquxov79[address] [facility] [id number] Creatinine [Mass/Vol] 1.56 mg/dL Abnormal 0.57-1.00 Com prehensive Internal Medicine; [facility] Work Phone: Comment on above: PATIENT NOT FASTINGP ERFORMED BY: [facility] [facility] [id number] GFR/1.73 sq M.predicted among blacks CKD-EPI (S/P/Bld) [Vol rate/Area] 38 mL/min/1.73 Abnormal [facility]; [facility] Work Phone: Comment on above: [facility] currently reports eGFR in compliance with the current recommendations of the National Kidney Foundation. [facility] will update reporting as new guidelines are published from the NKF-ASN Task force. PATIENT NOT FASTINGP ERFORMED BY: LabCoClara Maass Medical CenterYchoyf3243 Rehman [facility] [id number] GFR/1.73 sq M.predicted among non-blacks CKD-EPI (S/P/Bld) [Vol rate/Area] 33 mL/min/1.73 Abnormal [facility]; [facility] Work Phone: Comment on above: PATIENT NOT FASTINGP ERFORMED BY: LabCo Zehtyy2424 [facility]in [place] [id number] Glucose [Mass/Vol] 107 mg/dL Abnormal 65-99 [facility] Internal Medicine; [facility] Work Phone: Comment on above: PATIENT NOT FASTINGP ERFORMED BY: SAUL Barrientos Qwjuef4460 Rehman [facility] [place] [id number] Phosphate [Mass/Vol] 3.1 mg/dL Normal 3.0-4.3 [facility]; [facility] Work Phone: Comment on above: PATIENT NOT FASTINGP ERFORMED BY: SAUL Barrientos Nqrxwe6008 Rehman [facility] [place] [id number] Potassium [Moles/Vol] 5.6 mmol/L Abnormal 3.5-5.2 [facility] Internal Medicine; [facility] Work Phone: Comment on above: Client Requested [place] g PATIENT NOT FASTINGP ERFORMED BY: SAUL Barrientos Nzikaz9629 Rehman [facility] [place] [id number] Sodium [Moles/Vol] 143 mmol/L Normal 134-144 [facility] Internal Medicine; [facility] Work Phone: Comment on above: PATIENT NOT FASTINGP ERFORMED BY: SAUL Barrientos Qdmvpf4344 Rehman [facility] [id number] Urea nitrogen [Mass/Vol] 29 mg/dL Abnormal 8-27 [facility]; [facility] Work Phone: Comment on above: PATIENT NOT FASTINGP ERFORMED BY: SAUL LabErica Dgebcf3278 Rehman [facility] [id number] Urea nitrogen/Creatinine [Mass ratio] 19 mg/mg Normal 12-28 [facility]; [facility] Work Phone: Comment on above: PATIENT NOT FASTINGP ERFORMED BY: SAUL LabErica Jdpbdk7813 Rehman [facility] [place] [id number] CALCIFEDIOL (96096)Ordered B y: News Photographer on 12-12-2020 25-hydroxyvitamin D [Mass/Vol] 35.9 ng/mL Normal 30.0-100.0 [facility]; [facility] Work Phone: Comment on above: Vitamin D deficiency has been defined by the [place] of[place]icine and an Endocrine Society practice guideline as alevel of serum 25-OH vitamin D less than 20 ng/mL (1,2).The Endocrine Society went on to further define vitamin Dinsufficiency as a level between 21 and 29 ng/mL (2).1. IOM ([place] of Medicine). 2010. Dietary reference intakes for calcium and D. [place]: The National Academies Press.2. Junior MF, Lisa ROE, Randolph RAHMAN, et al. Evaluation, treatment, and prevention of vitamin D deficiency: an Endocrine Society clinical practice guideline. JCEM. 2010; 96(7):1911-30. PATIENT WAS FASTINGP ERFORMED BY: CB [facility] Xmiiyc2614 Rehman RoadDublin [place] [id number] CBC, Platelets & Auto Diff ( [id number])Ordered By: News Photographer on 12-12-2020 Basophils (Bld) [#/Vol] 0.0 10*3/uL Normal 0.0-0.2 [facility]; [facility] Work Phone: Comment on above: PATIENT WAS FASTINGP ERFORMED BY: CB [facility] Rgbuvp8376 Rehman RoadDublin [place] [id number] Basophils/100 WBC (Bld) 0 % Normal [facility]; [facility] Work Phone: Comment on above: PATIENT WAS FASTINGP ERFORMED BY: CB [facility] Awmsmc5878 Rehman RoadDublin [place] [id number] Eosinophils (Bld) [#/Vol] 0.2 10*3/uL Normal 0.0-0.4 [facility]; [facility] Work Phone: Comment on above: PATIENT WAS FASTINGP ERFORMED BY: CB [facility] Zdpeyq0749 Rehman RoadDublin [place] [id number] Eosinophils/100 WBC (Bld) 3 % Normal [facility]; [facility] Work Phone: Comment on above: PATIENT WAS FASTINGP ERFORMED BY: CB [facility] Ctsrxc0721 Rehman RoadDublin [place] [id number] Erythrocyte distribution width (RBC) [Ratio] 13.2 % Normal 11.7-15.4 [facility]; [facility] Work Phone: Comment on above: PATIENT WAS FASTINGP ERFORMED BY: SAUL Giovani Catherine6370 Rehman [facility] [id number] Hematocrit (Bld) [Volume fraction] 37.8 % Normal 34.0-46.6 [facility]; [facility] Work Phone: Comment on above: PATIENT WAS FASTINGP ERFORMED BY: SAUL AzamCo Olbaix4485 Rehman [facility] [id number] Hemoglobin (Bld) [Mass/Vol] 12.2 g/dL Normal 11.1-15.9 [facility]; [facility] Work Phone: Comment on above: PATIENT WAS FASTINGP ERFORMED BY: SAUL AzamWoodrow BlandonJxgvuh5844 Rehman [facility] [id number] Immature granulocytes (Bld) [#/Vol] 0.0 10*3/uL Normal 0.0-0.1 [facility]; [facility] Work Phone: Comment on above: PATIENT WAS FASTINGP ERFORMED BY: SAUL AzamWoodrow BlandonTakzll6410 Rehman [facility] [id number] Immature granulocytes/100 WBC (Bld) 0 % Normal [facility]; [facility] Work Phone: Comment on above: PATIENT WAS FASTINGP ERFORMED BY: SAUL LabCo Ogmvtf8367 Rehman [facility] [id number] Lymphocytes (Bld) [#/Vol] 1.2 10*3/uL Normal 0.7-3.1 [facility]; [facility] Work Phone: Comment on above: PATIENT WAS FASTINGP ERFORMED BY: SAUL [facility] Rrgrrp1698 Rehman [facility] [id number] Lymphocytes/100 WBC (Bld) 24 % Normal [facility]; [facility] Work Phone: Comment on above: PATIENT WAS FASTINGP ERFORMED BY: SAUL Giovani Catherine[address] [facility] [id number] MCH (RBC) [Entitic mass] 28.2 pg Normal 26.6-33.0 [facility]; [facility] Work Phone: Comment on above: PATIENT WAS FASTINGP ERFORMED BY: SAUL Giovani Catherine[address] [facility] [id number] MCHC (RBC) [Mass/Vol] 32.3 g/dL Normal 31.5-35.7 [facility] prehensive Internal Medicine; [facility] Work Phone: Comment on above: PATIENT WAS FASTINGP ERFORMED BY: SAUL Floyd Vnrvoo5[address] [facility] [id number] MCV (RBC) [Entitic vol] 88 fL Normal 79-97 [facility]; [facility] Work Phone: Comment on above: PATIENT WAS FASTINGP ERFORMED BY: SAUL Floyd Lwchsq0[address] [facility] [id number] Monocytes (Bld) [#/Vol] 0.3 10*3/uL Normal 0.1-0.9 [facility]; [facility] Work Phone: Comment on above: PATIENT WAS FASTINGP ERFORMED BY: SAUL Giovani Catherine[address] [facility] [id number] Monocytes/100 WBC (Bld) 6 % Normal [facility]; [facility] Work Phone: Comment on above: PATIENT WAS FASTINGP ERFORMED BY: SAUL Floyd Otcwiw29[address] [facility] [id number] Neutrophils (Bld) [#/Vol] 3.5 10*3/uL Normal 1.4-7.0 [facility]; [facility] Work Phone: Comment on above: PATIENT WAS FASTINGP ERFORMED BY: SAUL Giovani Blandonlin6[address] [facility] [id number] Neutrophils/100 WBC (Bld) 67 % Normal [facility]; [facility] Work Phone: Comment on above: PATIENT WAS FASTINGP ERFORMED BY: CB [facility] Xysmaw2379 Re[address] RoadDublin [place] [id number] Platelets (Bld) [#/Vol] 257 10*3/uL Normal 150-450 [facility]; [facility] Work Phone: Comment on above: PATIENT WAS FASTINGP ERFORMED BY: SAUL [facility] Nwbpoj1469 Rehman RoadDublin [place] [id number] RBC (Bld) [#/Vol] 4.32 10*6/uL Normal 3.77-5.28 [facility]; [facility] Work Phone: Comment on above: PATIENT WAS FASTINGP ERFORMED BY: SAUL [facility] Dscgim6717 Re[address] RoadDublin [place] [id number] WBC (Bld) [#/Vol] 5.2 10*3/uL Normal 3.4-10.8 [facility] Internal Medicine; [facility] Work Phone: Comment on above: PATIENT WAS FASTINGP ERFORMED BY: SAUL LabCo Epqipb7908 Rehman [facility] HospitalDublin [place] [id number] LIPID PANEL (71859)Ordered B y: News Photographer on 12-12-2020 Cholesterol [Mass/Vol] 157 mg/dL Normal 100-199 [facility]; [facility] Work Phone: Comment on above: PATIENT WAS FASTINGP ERFORMED BY: SAUL LabCo Npuzsn0235 Rehman [facility] HospitalDublin [place] [id number] Cholesterol in HDL [Mass/Vol] 45 mg/dL Normal [facility]; [facility] Work Phone: Comment on above: PATIENT WAS FASTINGP ERFORMED BY: SAUL [facility] Oxvfvl2076 Re[address] RoadDublin [place] [id number] Triglyceride [Mass/Vol] 92 mg/dL Normal 0-149 [facility]; [facility] Work Phone: Comment on above: PATIENT WAS FASTINGP ERFORMED BY: SAUL [facility] Dbqgjn5228 Re[address] RoadDublin [place] [id number] LIPID PANEL (87051) 17 mg/dL Normal 5-40 Compr ensive Internal Medicine; [facility] Work Phone: Comment on above: PATIENT WAS FASTINGP ERFORMED BY: SAUL [facility] Aflfhm7813 Re[address] RoadDublin [place] [id number] LIPID PANEL (79850) 95 mg/dL Normal 0-99 [facility] Internal Medicine; [facility] Work Phone: Comment on above: PATIENT WAS FASTINGP ERFORMED BY: CB [facility] Soykwi9029 Re[address] RoadDublin [place] [id number] LIPID PANEL (30608) 2.1 {ratio} Normal 0.0-3.2 [facility] Internal Medicine; [facility] Work Phone: Comment on above: LDL/HDL Ratio Men Wo men 1/2 Avg.Risk 1.0 1.5 Avg.Risk 3.6 3.2 2X Avg.Risk 6.2 5.0 3X Avg.Risk 8.0 6.1 PATIENT WAS FASTINGP ERFORMED BY: SAUL [facility] Eximbs8466 Rehman [facility] Hospitalblin [place] [id number] Metabolic Panel, Comprehensi ve (25139)Ordered By: News Photographer on 12-12-2020 Albumin [Mass/Vol] 4.4 g/dL Normal 3.7-4.7 [facility] Internal Medicine; [facility] Work Phone: Comment on above: PATIENT WAS FASTINGP ERFORMED BY: SAUL [facility] Ywbqcs3799 Rehman [facility] Hospitalblin [place] [id number] Albumin/Globulin [Mass ratio] 1.7 {ratio} Normal 1.2-2.2 [facility] Internal Medicine; [facility] Work Phone: Comment on above: PATIENT WAS FASTINGP ERFORMED BY: CB [facility] Curkxd8847 Re[address] RoadDublin [place] [id number] ALP [Catalytic activity/Vol] 99 U/L Normal 48-121 [facility] Internal Medicine; [facility] Work Phone: Comment on above: Please note refere nce interval change PATIENT WAS FASTINGP ERFORMED BY: CB [facility] Dddkiq4099 Rehman RoadDublin [place] [id number] ALT [Catalytic activity/Vol] 17 U/L Normal 0-32 [facility]; [facility] Work Phone: Comment on above: PATIENT WAS FASTINGP ERFORMED BY: CB [facility] Znedbp5020 Re[address] RoadDublin [place] [id number] AST [Catalytic activity/Vol] 18 U/L Normal 0-40 [facility]; [facility] Work Phone: Comment on above: PATIENT WAS FASTINGP ERFORMED BY: CB [facility] Vvyrkx8425 Re[address] RoadDublin [place] [id number] Bilirubin [Mass/Vol] 0.5 mg/dL Normal 0.0-1.2 [facility] rehensive Internal Medicine; [facility] Work Phone: Comment on above: PATIENT WAS FASTINGP ERFORMED BY: CB [facility] Pzqufr3638 Re[address] RoadDublin [place] [id number] Calcium [Mass/Vol] 9.6 mg/dL Normal 8.7-10.3 [facility] Internal Medicine; [facility] Work Phone: Comment on above: PATIENT WAS FASTINGP ERFORMED BY: CB [facility] Mhpjnc0089 Re[address] RoadDublin [place] [id number] Chloride [Moles/Vol] 105 mmol/L Normal 96-106 [facility]; [facility] Work Phone: Comment on above: PATIENT WAS FASTINGP ERFORMED BY: CB [facility] Dxyygl0444 Re[address] RoadDublin [place] [id number] CO2 [Moles/Vol] 22 mmol/L Normal 20-29 [facility] Internal Medicine; [facility] Work Phone: Comment on above: PATIENT WAS FASTINGP ERFORMED BY: CB [facility] Lrqohp7368 Re[address] RoadDublin [place] [id number] Creatinine [Mass/Vol] 1.32 mg/dL Abnormal 0.57-1.00 [facility]; [facility] Work Phone: Comment on above: PATIENT WAS FASTINGP ERFORMED BY: CB [facility] Npkqiw9982 Re[address] RoadDublin [place] [id number] GFR/1.73 sq M.predicted among blacks CKD-EPI (S/P/Bld) [Vol rate/Area] 47 mL/min/1.73 Abnormal [facility]; [facility] Work Phone: Comment on above: [facility] currently reports eGFR in compliance with the current recommendations of the National Kidney Foundation. [facility] will update reporting as new guidelines are published from the NKF-ASN Task force. PATIENT WAS FASTINGP ERFORMED BY: [facility] [facility] [id number] GFR/1.73 sq M.predicted among non-blacks CKD-EPI (S/P/Bld) [Vol rate/Area] 41 mL/min/1.73 Abnormal [facility]; [facility] Work Phone: Comment on above: PATIENT WAS FASTINGP ERFORMED BY: [facility] [facility] [id number] Globulin (S) [Mass/Vol] 2.6 g/dL Normal 1.5-4.5 [facility] Internal Medicine; [facility] Work Phone: Comment on above: PATIENT WAS FASTINGP ERFORMED BY: [facility] [facility] [id number] Glucose [Mass/Vol] 107 mg/dL Abnormal 65-99 [facility] Internal Medicine; [facility] Work Phone: Comment on above: PATIENT WAS FASTINGP ERFORMED BY: [facility] [facility] [id number] Potassium [Moles/Vol] 4.9 mmol/L Normal 3.5-5.2 [facility] prehensive Internal Medicine; [facility] Work Phone: Comment on above: PATIENT WAS FASTINGP ERFORMED BY: [facility] [facility] [id number] Protein [Mass/Vol] 7.0 g/dL Normal 6.0-8.5 [facility] Internal Medicine; [facility] Work Phone: Comment on above: PATIENT WAS FASTINGP ERFORMED BY: CB [facility] Bpqgdd2604 Re[address] RoadDublin [place] [id number] Sodium [Moles/Vol] 145 mmol/L Abnormal 134-144 [facility] Internal [facility]; [facility] Work Phone: Comment on above: PATIENT WAS FASTINGP ERFORMED BY: [facility] Wyipmk8703 Re[address] RoadDublin [place] [id number] Urea nitrogen [Mass/Vol] 21 mg/dL Normal 8-27 [facility]; [facility] Work Phone: Comment on above: PATIENT WAS FASTINGP ERFORMED BY: [facility] Agihal0988 Re[address] RoadDublin [place] [id number] Urea nitrogen/Creatinine [Mass ratio] 16 mg/mg Normal 12-28 [facility]; [facility] Work Phone: Comment on above: PATIENT WAS FASTINGP ERFORMED BY: Lab[facility] Zfgmza7052 Re[address] RoadDublin [place] [id number] TSH ([id number])Ordered By: SCRMe m Pattern Gater on 12-12-2020 TSH Qn 2.450 {uIU/mL} Normal 0.450-4.50 0 [facility]; [facility] Work Phone: Comment on above: PATIENT WAS FASTINGP ERFORMED BY: [facility] Pjrvjj1161 [address] RoadDublin [place] [id number] VITAMIN B12 AND FOLATES ([id number])Ordered By: News Photographer on 12-12-2020 Cobalamin (Vitamin B12) [Mass/Vol] 317 pg/mL Normal 232-1245 [facility]; [facility] Work Phone: Comment on above: PATIENT WAS FASTINGP ERFORMED BY: [facility] Swkotg4046 [address] RoadDublin [place] [id number] Folate [Mass/Vol] 9.0 ng/mL Normal [facility]; [facility] Work Phone: Comment on above: A serum folate tamiko ntration of less than 3.1 ng/mL isconsidered to represent clinical deficiency. PATIENT WAS FASTINGP ERFORMED BY: [facility] Utphbk3907 Re[address] RoadDublin [place] [id number] LUIS (ANTINUCLEAR ANTIBODY) ( [id number])Ordered By: News Photographer on 07-27-2019 Nuclear Ab Ql (S) Negative Normal Compreh ensive Internal Medicine; [facility] Work Phone: Comment on above: PATIENT NOT FASTINGP ERFORMED BY: SAUL [facility] Pptyup1620 [address] Roadblin [place] [id number] Nuclear Ab Ql (S) Negative Normal Compreh ensive Internal Medicine; [facility] Work Phone: Comment on above: PATIENT NOT FASTINGP ERFORMED BY: LabCoClara Maass Medical CenterYgkvdn7978 Rehman [facility] [id number] CBC W/AUTO DIFF WBC ([id number])O rdered By: News Photographer on 07-27-2019 Basophils (Bld) [#/Vol] 0.0 {x10E3/uL} Normal 0.0-0.2 [facility]; [facility] Work Phone: Comment on above: PATIENT NOT FASTINGP ERFORMED BY: LabUniversity [facility] Health6370 Rehman [facility]in [place] [id number] Basophils (Bld) [#/Vol] 0.0 10*3/uL Normal 0.0-0.2 [facility]; [facility] Work Phone: Comment on above: PATIENT NOT FASTINGP ERFORMED BY: [facility] Vxivob6711 Rehman [facility]in [place] [id number] Basophils/100 WBC (Bld) 0 % Normal [facility]; [facility] Work Phone: Comment on above: PATIENT NOT FASTINGP ERFORMED BY: [facility] Ozheyc2483 Rehman [facility]in [place] [id number] Eosinophils (Bld) [#/Vol] 0.1 {x10E3/uL} Normal 0.0-0.4 [facility]; [facility] Work Phone: Comment on above: PATIENT NOT FASTINGP ERFORMED BY: [facility] Cciorb1725 Re[address] RoadDublin [place] [id number] Eosinophils (Bld) [#/Vol] 0.1 10*3/uL Normal 0.0-0.4 [facility]; [facility] Work Phone: Comment on above: PATIENT NOT FASTINGP ERFORMED BY: SAUL Catherine6370 Rehman [facility] [id number] Eosinophils/100 WBC (Bld) 2 % Normal [facility]; [facility] Work Phone: Comment on above: PATIENT NOT FASTINGP ERFORMED BY: SAUL Catherine[address] [facility] [id number] Erythrocyte distribution width (RBC) [Ratio] 13.8 % Normal 12.3-15.4 [facility]; [facility] Work Phone: Comment on above: Effective August 03, 2019, the RDW pediatric reference interval will be removed and the adult reference interval will be changing to: Female 11.7 - 15.4 Male 11.6 - 15.4 PATIENT NOT FASTINGP ERFORMED BY: SAUL Catherine[address] [facility] [id number] Hematocrit (Bld) [Volume fraction] 38.8 % Normal 34.0-46.6 [facility]; [facility] Work Phone: Comment on above: PATIENT NOT FASTINGP ERFORMED BY: SAUL Blandonlin6[address] [facility] [id number] Hemoglobin (Bld) [Mass/Vol] 12.5 g/dL Normal 11.1-15.9 [facility]; [facility] Work Phone: Comment on above: PATIENT NOT FASTINGP ERFORMED BY: SAUL [facility] Ggywsr4292 Rehman [facility] [id number] Immature granulocytes (Bld) [#/Vol] 0.0 {x10E3/uL} Normal 0.0-0.1 [facility]; [facility] Work Phone: Comment on above: PATIENT NOT FASTINGP ERFORMED BY: SAUL [facility] Lpxzaa8930 Rehman [facility] [id number] Immature granulocytes (Bld) [#/Vol] 0.0 10*3/uL Normal 0.0-0.1 [facility]; [facility] Work Phone: Comment on above: PATIENT NOT FASTINGP ERFORMED BY: SAUL LabCodeb CatherineJaoqlm1304 Re[address] RoadDublin [place] [id number] Immature granulocytes/100 WBC (Bld) 0 % Normal [facility]; [facility] Work Phone: Comment on above: PATIENT NOT FASTINGP ERFORMED BY: CB [facility] Xitqvs4443 [address] Roadblin [place] [id number] Lymphocytes (Bld) [#/Vol] 1.6 {x10E3/uL} Normal 0.7-3.1 [facility]; [facility] Work Phone: Comment on above: PATIENT NOT FASTINGP ERFORMED BY: SAUL [facility] Ogenpx5920 [address] RoadDublin [place] [id number] Lymphocytes (Bld) [#/Vol] 1.6 10*3/uL Normal 0.7-3.1 [facility]; [facility] Work Phone: Comment on above: PATIENT NOT FASTINGP ERFORMED BY: SAUL [facility] Rphipe8164 [address] Roadblin [place] [id number] Lymphocytes/100 WBC (Bld) 22 % Normal [facility]; [facility] Work Phone: Comment on above: PATIENT NOT FASTINGP ERFORMED BY: CB [facility] Apsddg9108 Rehman [facility]in [place] [id number] MCH (RBC) [Entitic mass] 27.2 pg Normal 26.6-33.0 [facility]; [facility] Work Phone: Comment on above: PATIENT NOT FASTINGP ERFORMED BY: CB [facility] Qixmvf7193 [address] RoadDublin [place] [id number] MCHC (RBC) [Mass/Vol] 32.2 g/dL Normal 31.5-35.7 [facility] prehensive Internal Medicine; [facility] Work Phone: Comment on above: PATIENT NOT FASTINGP ERFORMED BY: CB [facility] Mmwwmh7916 Rehman [facility] Hospitalblin [place] [id number] MCV (RBC) [Entitic vol] 85 fL Normal 79-97 [facility]; [facility] Work Phone: Comment on above: PATIENT NOT FASTINGP ERFORMED BY: SAUL Catherine6370 [facility]North [facility] [id number] Monocytes (Bld) [#/Vol] 0.4 {x10E3/uL} Normal 0.1-0.9 [facility]; [facility] Work Phone: Comment on above: PATIENT NOT FASTINGP ERFORMED BY: SAUL Giovani Catherine6370 Rehman [facility]jonAd[facility]Health [id number] Monocytes (Bld) [#/Vol] 0.4 10*3/uL Normal 0.1-0.9 [facility]; [facility] Work Phone: Comment on above: PATIENT NOT FASTINGP ERFORMED BY: SAUL Floyddeb BlandonKghfjd5226 Rehman DejonAdventHealth [id number] Monocytes/100 WBC (Bld) 5 % Normal [facility]; [facility] Work Phone: Comment on above: PATIENT NOT FASTINGP ERFORMED BY: SAUL Giovani Catherine6[address] [facility]Ad[facility]Health [id number] Neutrophils (Bld) [#/Vol] 5.4 {x10E3/uL} Normal 1.4-7.0 [facility]; [facility] Work Phone: Comment on above: PATIENT NOT FASTINGP ERFORMED BY: SAUL LabWoodrow Catherine[address] [facility] [id number] Neutrophils (Bld) [#/Vol] 5.4 10*3/uL Normal 1.4-7.0 [facility]; [facility] Work Phone: Comment on above: PATIENT NOT FASTINGP ERFORMED BY: SAUL Catherine[address] [facility] [id number] Neutrophils/100 WBC (Bld) 71 % Normal [facility]; [facility] Work Phone: Comment on above: PATIENT NOT FASTINGP ERFORMED BY: CB [facility] Mngmlo8832 Re[address] RoadDublin [place] [id number] Platelets (Bld) [#/Vol] 288 {x10E3/uL} Normal 150-450 [facility]; [facility] Work Phone: Comment on above: PATIENT NOT FASTINGP ERFORMED BY: CB [facility] Tzriit3298 Re[address] RoadDublin [place] [id number] Platelets (Bld) [#/Vol] 288 10*3/uL Normal 150-450 [facility]; [facility] Work Phone: Comment on above: PATIENT NOT FASTINGP ERFORMED BY: CB [facility] Cvwwbt6946 [address] RoadDublin [place] [id number] RBC (Bld) [#/Vol] 4.59 {x10E6/uL} Normal 3.77-5.28 [facility] Divisionehens[facility]; [facility] Work Phone: Comment on above: PATIENT NOT FASTINGP ERFORMED BY: CB [facility] Wcvfvi3152 Re[address] RoadDublin [place] [id number] RBC (Bld) [#/Vol] 4.59 10*6/uL Normal 3.77-5.28 [facility]; [facility] Work Phone: Comment on above: PATIENT NOT FASTINGP ERFORMED BY: CB [facility] Ebxmgj9268 [address] RoadDublin [place] [id number] WBC (Bld) [#/Vol] 7.5 {x10E3/uL} Normal 3.4-10.8 [facility] prehensive Internal Medicine; [facility] Work Phone: Comment on above: PATIENT NOT FASTINGP ERFORMED BY: CB [facility] Gffcfd7802 [address] RoadDublin [place] [id number] WBC (Bld) [#/Vol] 7.5 10*3/uL Normal 3.4-10.8 [facility] Internal Medicine; [facility] Work Phone: Comment on above: PATIENT NOT FASTINGP ERFORMED BY: CB [facility] Yhrfkr4601 [address] RoadDublin [place] [id number] METABOLIC PANEL, COMPREHENSI VE ([id number])Ordered By: News Photographer on 07-27-2019 Albumin [Mass/Vol] 4.4 g/dL Normal 3.5-4.8 [facility] Internal Medicine; [facility] Work Phone: Comment on above: PATIENT NOT FASTINGP ERFORMED BY: CB [facility] Ksfuzx6131 [address] RoadDublin [place] [id number] Albumin/Globulin [Mass ratio] 1.6 {ratio} Normal 1.2-2.2 [facility]; [facility] Work Phone: Comment on above: PATIENT NOT FASTINGP ERFORMED BY: CB [facility] Xbxmca2099 [address] RoadDublin [place] [id number] ALP [Catalytic activity/Vol] 112 [iU]/L Normal 39-117 [facility]; [facility] Work Phone: Comment on above: PATIENT NOT FASTINGP ERFORMED BY: CB [facility] Cvzyya9381 [address] RoadDublin [place] [id number] ALP [Catalytic activity/Vol] 112 U/L Normal 39-117 [facility]; [facility] Work Phone: Comment on above: PATIENT NOT FASTINGP ERFORMED BY: CB [facility] Ggqtkq0280 [address] RoadDublin [place] [id number] ALT [Catalytic activity/Vol] 18 [iU]/L Normal 0-32 [facility]; [facility] Work Phone: Comment on above: PATIENT NOT FASTINGP ERFORMED BY: CB [facility] Wclbti6529 [address] RoadDublin [place] [id number] ALT [Catalytic activity/Vol] 18 U/L Normal 0-32 [facility]; [facility] Work Phone: Comment on above: PATIENT NOT FASTINGP ERFORMED BY: CB [facility] Hxjjsv8069 [address] RoadDublin [place] [id number] AST [Catalytic activity/Vol] 20 [iU]/L Normal 0-40 [facility]; [facility] Work Phone: Comment on above: PATIENT NOT FASTINGP ERFORMED BY: CB [facility] Hmmseh85[address] [facility]in [place] [id number] AST [Catalytic activity/Vol] 20 U/L Normal 0-40 [facility]; [facility] Work Phone: Comment on above: PATIENT NOT FASTINGP ERFORMED BY: SAUL Catherine6[address]Dublin [place] [id number] Bilirubin [Mass/Vol] 0.3 mg/dL Normal 0.0-1.2 Comp rehensive Internal Medicine; [facility] Work Phone: Comment on above: PATIENT NOT FASTINGP ERFORMED BY: SAUL LabCodeb BlandonKbfden4936 [address] RoadCone Health Medcenter High Pointin [place] [id number] Calcium [Mass/Vol] 9.6 mg/dL Normal 8.7-10.3 [facility] Internal Medicine; [facility] Work Phone: Comment on above: PATIENT NOT FASTINGP ERFORMED BY: SAUL Catherine6370 [address] RoadAdventHealth [id number] Chloride [Moles/Vol] 107 mmol/L Abnormal 96-106 Comp rehensive Internal Medicine; [facility] Work Phone: Comment on above: PATIENT NOT FASTINGP ERFORMED BY: SAUL LabWoodrow BlandonHczswp5385 Re[address] Roadblin [place] [id number] CO2 [Moles/Vol] 23 mmol/L Normal 20-29 [facility] Internal Medicine; [facility] Work Phone: Comment on above: PATIENT NOT FASTINGP ERFORMED BY: SAUL LabCodeb Dlnkna1617 [address] RoadCone Health Medcenter [facility] Pointin [place] [id number] Creatinine [Mass/Vol] 1.16 mg/dL Abnormal 0.57-1.00 [facility]; [facility] Work Phone: Comment on above: PATIENT NOT FASTINGP ERFORMED BY: SAUL LabCodeb Gbizhh5006 [address] Roadblin [place] [id number] GFR/1.73 sq M predicted among blacks CKD-EPI (S/P/Bld) [Vol rate/Area] 55 mL/min/1.73 Abnormal [facility]; [facility] Work Phone: Comment on above: PATIENT NOT FASTINGP ERFORMED BY: CB [facility] Eennap7129 [address] RoadDublin [place] [id number] GFR/1.73 sq M predicted among non-blacks CKD-EPI (S/P/Bld) [Vol rate/Area] 48 mL/min/1.73 Abnormal [facility]; [facility] Work Phone: Comment on above: PATIENT NOT FASTINGP ERFORMED BY: CB [facility] Ikcgql6015 [address] RoadDublin [place] [id number] Globulin (S) [Mass/Vol] 2.7 g/dL Normal 1.5-4.5 [facility] Internal Medicine; [facility] Work Phone: Comment on above: PATIENT NOT FASTINGP ERFORMED BY: CB [facility] Inliwj8747 [address] RoadDublin [place] [id number] Glucose [Mass/Vol] 104 mg/dL Abnormal 65-99 [facility] Internal Medicine; [facility] Work Phone: Comment on above: PATIENT NOT FASTINGP ERFORMED BY: CB [facility] Ayakbw1963 [address] RoadDublin [place] [id number] Potassium [Moles/Vol] 4.0 mmol/L Normal 3.5-5.2 [facility]ensive [facility]; [facility] Work Phone: Comment on above: PATIENT NOT FASTINGP ERFORMED BY: CB [facility] Inhpug2659 [address] RoadDublin [place] [id number] Protein [Mass/Vol] 7.1 g/dL Normal 6.0-8.5 [facility] Internal Medicine; [facility] Work Phone: Comment on above: PATIENT NOT FASTINGP ERFORMED BY: CB [facility] Qxmkre4355 [address] RoadDublin [place] [id number] Sodium [Moles/Vol] 146 mmol/L Abnormal 134-144 [facility] Internal Medicine; [facility] Work Phone: Comment on above: PATIENT NOT FASTINGP ERFORMED BY: CB [facility] Irsmrl9964 [address] RoadDublin [place] [id number] Urea nitrogen [Mass/Vol] 17 mg/dL Normal 8-27 [facility]; [facility] Work Phone: Comment on above: PATIENT NOT FASTINGP ERFORMED BY: SAUL Catherine6[address] RoadDublin [place] [id number] Urea nitrogen/Creatinine [Mass ratio] 15 mg/mg Normal 12-28 [facility]; [facility] Work Phone: Comment on above: PATIENT NOT FASTINGP ERFORMED BY: SAUL Blandonlin6370 [address] RoadDublin [place] [id number] MICROALBUMINOrdered By: SCRM em Pattern Gater on 07-27-2019 Albumin DL <= 20 mg/L (U) [Mass/Vol] 96.5 ug/mL Normal [facility]; [facility] Work Phone: Comment on above: PATIENT NOT FASTINGP ERFORMED BY: SAUL Catherine6[address] RoadC[facility] Health Med[facility] [place]in [place] [id number] Albumin/Creatinine (U) [Mass ratio] 228.7 {mg/g_creat} Abnormal 0.0-30.0 Comprehensiv e Internal Medicine; [facility] Work Phone: Comment on above: Normal: 0.0 - 30.0 A lbuminuria: 31.0 - 300.0 Clinical albuminuria: >300.0 PATIENT NOT FASTINGP ERFORMED BY: SAUL Blandonlin[address] [facility]in [place] [id number] Creatinine (U) [Mass/Vol] 42.2 mg/dL Normal [facility]; [facility] Work Phone: Comment on above: PATIENT NOT FASTINGP ERFORMED BY: SAUL Blandonlin[address] [facility]in [place] [id number] TSH ([id number])Ordered By: SCRMe m Pattern Gater on 07-27-2019 TSH Qn 2.900 {uIU/mL} Normal 0.450-4.50 0 [facility]; [facility] Work Phone: Comment on above: PATIENT NOT FASTINGP ERFORMED BY: SAUL Blandonlin[address] [facility] [id number] URINALYSIS, W/ MICRO ([id number]) Ordered By: News Photographer on 07-27-2019 Appearance (U) Clear Normal Comprehens rodrigo Internal Medicine; [facility] Work Phone: Comment on above: PATIENT NOT FASTINGP ERFORMED BY: SAUL [facility] Zlvkxn3843 [address] RoadDublin [place] [id number] Bilirubin Ql (U) Negative Normal Comprehe nsive Internal Medicine; [facility] Work Phone: Comment on above: PATIENT NOT FASTINGP ERFORMED BY: SAUL [facility] Mjcyth9563 [address] RoadDublin [place] [id number] Bilirubin Ql (U) Negative Normal Comprehe nsive Internal Medicine; [facility] Work Phone: Comment on above: PATIENT NOT FASTINGP ERFORMED BY: SAUL LabCodeb BlandonHrusjq5768 [address] RoadDublin [place] [id number] Color (U) Yellow Normal [facility]; [facility] Work Phone: Comment on above: PATIENT NOT FASTINGP ERFORMED BY: SAUL LabCodeb BlandonDiiipz8758 [address] RoadDublin [place] [id number] Glucose Ql (U) Negative Normal Comprehens rodrigo Internal Medicine; [facility] Work Phone: Comment on above: PATIENT NOT FASTINGP ERFORMED BY: SAUL LabCodeb BlandonDksbps8988 [address] RoadDublin [place] [id number] Glucose Ql (U) Negative Normal Comprehens rodrigo Internal Medicine; [facility] Work Phone: Comment on above: PATIENT NOT FASTINGP ERFORMED BY: SAUL [facility] Yqkpjg0872 [address] RoadDublin [place] [id number] Hemoglobin Ql (U) 1+ Abnormal Compreh ensive Internal Medicine; [facility] Work Phone: Comment on above: PATIENT NOT FASTINGP ERFORMED BY: SAUL [facility] Wthije2821 [address] RoadDublin [place] [id number] Ketones Ql (U) Negative Normal Comprehens rodrigo Internal [facility]; [facility] Work Phone: Comment on above: PATIENT NOT FASTINGP ERFORMED BY: SAUL [facility] Bxtgth7611 [address] RoadDublin [place] [id number] Ketones Ql (U) Negative Normal Comprehens rodrigo [facility]; [facility] Work Phone: Comment on above: PATIENT NOT FASTINGP ERFORMED BY: SAUL [facility] Owtgnl0328 [address] RoadDublin [place] [id number] Leukocyte esterase Test strip Ql (U) Negative Normal [facility]; [facility] Work Phone: Comment on above: PATIENT NOT FASTINGP ERFORMED BY: SAUL [facility] Rsjjqk4271 [address] RoadDublin [place] [id number] Leukocyte esterase Test strip Ql (U) Negative Normal [facility]; [facility] Work Phone: Comment on above: PATIENT NOT FASTINGP ERFORMED BY: SAUL [facility] Bjfdvf8078 [address] RoadDublin [place] [id number] Microscopic observation LM Nom (Urine sed) See below: Normal [facility]; [facility] Work Phone: Comment on above: Microscopic was tomi cated and was performed. PATIENT NOT FASTINGP ERFORMED BY: SAUL [facility] Qnphrc2354 [address] RoadDublin [place] [id number] Nitrite Ql (U) Negative Normal Comprehens rodrigo [facility] Medicine; [facility] Work Phone: Comment on above: PATIENT NOT FASTINGP ERFORMED BY: SAUL [facility] Juiqew7607 [address] RoadDublin [place] [id number] Nitrite Ql (U) Negative Normal Comprehens rodrigo [facility] Medicine; [facility] Work Phone: Comment on above: PATIENT NOT FASTINGP ERFORMED BY: CB [facility] Nzpdxm6532 [address] RoadDublin [place] [id number] pH (U) 6.5 [pH] Normal 5.0-7.5 [facility]; [facility] Work Phone: Comment on above: PATIENT NOT FASTINGP ERFORMED BY: CB [facility] Sjtryb7701 [address] RoadDublin [place] [id number] Protein Ql (U) Trace Normal Comprehens rodrigo [facility]; [facility] Work Phone: Comment on above: PATIENT NOT FASTINGP ERFORMED BY: SAUL LabCodeb Bgmifh5377 [address] RoadDublin [place] [id number] Specific gravity (U) [Rel density] 1.012 1 Normal 1.005-1.03 0 [facility]; [facility] Work Phone: Comment on above: PATIENT NOT FASTINGP ERFORMED BY: CB [facility] Nvuwhb7629 [address] RoadDublin [place] [id number] Urobilinogen (U) [Mass/Vol] 1.0 mg/dL Normal 0.2-1.0 [facility]; [facility] Work Phone: Comment on above: PATIENT NOT FASTINGP ERFORMED BY: SAUL [facility] Vylyqg9228 [address] RoadDublin [place] [id number] Urobilinogen Test strip (U) [Mass/Vol] 1.0 mg/dL Normal 0.2-1.0 Comprehensi Internal Medicine; [facility] Work Phone: Comment on above: PATIENT NOT FASTINGP ERFORMED BY: SAUL [facility] Gydhir5154 Reham[address] RoadDublin [place] [id number] POTASSIUM SERUM ([id number])Order ed By: News Photographer on 12-01-2018 Potassium [Moles/Vol] 4.2 mmol/L Normal 3.5-5.2 [facility] Work Phone: Comment on above: PATIENT NOT FASTINGP ERFORMED BY: SAUL [facility] Iywgxr6778 [address] RoadDublin [place] [id number] T3, FREE (TRIDOTHYRONINE) ([id number] [id number])Ordered By: News Photographer on 12-01-2018 Free T3 [Mass/Vol] 2.5 pg/mL Normal 2.0-4.4 [facility] Internal Medicine Work Phone: Comment on above: PATIENT NOT FASTINGP ERFORMED BY: SAUL [facility] Hnqdcb2237 [address] RoadDublin [place] [id number] T4, FREE (THYROXINE) ([id number]) Ordered By: News Photographer on 12-01-2018 Free T4 [Mass/Vol] 1.18 ng/dL Normal 0.82-1.77 [facility] Internal Medicine Work Phone: Comment on above: PATIENT NOT FASTINGP ERFORMED BY: SAUL LabCo Mxtdzm17[address] [facility] [id number] TSH ([id number])Ordered By: Norma olivas Pattern Gater on 12-01-2018 TSH Qn 2.240 {uIU/mL} Normal 0.450-4.50 0 [facility] Work Phone: Comment on above: PATIENT NOT FASTINGP ERFORMED BY: LabCoClara Maass Medical CenterZyduqj9960 [facility] [id number] CBC W/AUTO DIFF WBC ([id number])O rdered By: News Photographer on 10-29-2018 Basophils #/vol (Bld) 0.0 {x10E3/uL} Normal 0.0-0.2 [facility] Work Phone: Comment on above: PATIENT WAS FASTINGP ERFORMED BY: [employer] [id number] BY: Labcurated.byClara Maass Medical CenterEcxebs47[address] [facility] [id number] Basophils (Bld) [#/Vol] 0.0 10*3/uL Normal 0.0-0.2 [facility]; [facility] Work Phone: Comment on above: PATIENT WAS FASTINGP ERFORMED BY: [employer] [id number] BY: Labcurated.byClara Maass Medical CenterYtpaeb8[address] [facility] [id number] Basophils/100 WBC (Bld) 0 % Normal [facility] Work Phone: Comment on above: PATIENT WAS FASTINGP ERFORMED BY: [employer] [id number] BY: [facility] Esthwp5[address] [facility] [id number] Eosinophils #/vol (Bld) 0.1 {x10E3/uL} Normal 0.0-0.4 [facility] Work Phone: Comment on above: PATIENT WAS FASTINGP ERFORMED BY: Labcurated.by[address] [id number] BY: [facility] Fvxjbk7869 [address] RoadDublin [place] [id number] Eosinophils (Bld) [#/Vol] 0.1 10*3/uL Normal 0.0-0.4 [facility]; [facility] Work Phone: Comment on above: PATIENT WAS FASTINGP ERFORMED BY: [facility] [address] [id number] BY: [facility] Onqspi9769 [address] [facility]in [place] [id number] Eosinophils/100 WBC (Bld) 2 % Normal [facility] Work Phone: Comment on above: PATIENT WAS FASTINGP ERFORMED BY: Labcurated.byrp [address] [id number] BY: [facility] Dleyns3652 [address] [facility] [id number] Erythrocyte distribution width Ratio (RBC) 14.5 % Normal 12.3-15.4 [facility] Work Phone: Comment on above: PATIENT WAS FASTINGP ERFORMED BY: [employer] [id number] BY: [facility] Kwiklw1094 [address] [facility]in [place] [id number] Hematocrit Volume Fraction (Bld) 40.4 % Normal 34.0-46.6 [facility] Work Phone: Comment on above: PATIENT WAS FASTINGP ERFORMED BY: [employer] [id number] BY: [facility] Dfppju8828 [address] [facility] Hospitalblin [place] [id number] Hemoglobin mass conc (Bld) 13.1 g/dL Normal 11.1-15.9 [facility] Work Phone: Comment on above: PATIENT WAS FASTINGP ERFORMED BY: [address] [id number] BY: [facility] Pqqmcd4813 [address] RoadDublin [place] [id number] Immature granulocytes #/vol (Bld) 0.0 {x10E3/uL} Normal 0.0-0.1 [facility] Work Phone: Comment on above: PATIENT WAS FASTINGP ERFORMED BY: [address] [id number] BY: [facility] Igmtmw3256 [address] RoadDublin [place] [id number] Immature granulocytes (Bld) [#/Vol] 0.0 10*3/uL Normal 0.0-0.1 [facility]; [facility] Work Phone: Comment on above: PATIENT WAS FASTINGP ERFORMED BY: [address] [id number] BY: LabUniversity [facility] Health6370 [address] RoadDuin [place] [id number] Immature granulocytes/100 WBC (Bld) 0 % Normal [facility] Work Phone: Comment on above: PATIENT WAS FASTINGP ERFORMED BY: [address] [id number] BY: LabCoTohatchi Health Care CenterIlmzfv0677 [address] RoadDuin [place] [id number] Lymphocytes #/vol (Bld) 1.5 {x10E3/uL} Normal 0.7-3.1 [facility] Work Phone: Comment on above: PATIENT WAS FASTINGP ERFORMED BY: [address] [id number] BY: LabUniversity Of [facility] Health6370 [address] RoadDublin [place] [id number] Lymphocytes (Bld) [#/Vol] 1.5 10*3/uL Normal 0.7-3.1 [facility]; [facility] Work Phone: Comment on above: PATIENT WAS FASTINGP ERFORMED BY: Lab[address] [id number] BY: LabCoClara Maass Medical CenterJmpddc17[address] [facility] [id number] Lymphocytes/100 WBC (Bld) 23 % Normal [facility] Work Phone: Comment on above: PATIENT WAS FASTINGP ERFORMED BY: Lab[address] [id number] BY: LabCoClara Maass Medical CenterHhyiau04[address] [facility] [id number] MCH Entitic mass (RBC) 27.5 pg Normal 26.6-33.0 [facility] Work Phone: Comment on above: PATIENT WAS FASTINGP ERFORMED BY: Lab[address] [id number] BY: SAUL LabCoClara Maass Medical CenterHgypiy24[address] [facility] [id number] MCHC mass conc (RBC) 32.4 g/dL Normal 31.5-35.7 [facility] Internal Medicine Work Phone: Comment on above: PATIENT WAS FASTINGP ERFORMED BY: Lab[address] [id number] BY: LabUniversity [facility] Health[address] [facility] [id number] MCV Entitic volume (RBC) 85 fL Normal 79-97 [facility] Work Phone: Comment on above: PATIENT WAS FASTINGP ERFORMED BY: Lab[address] [id number] BY: LabCoClara Maass Medical CenterChvjya40[address] [facility] [id number] Monocytes #/vol (Bld) 0.4 {x10E3/uL} Normal 0.1-0.9 [facility] Work Phone: Comment on above: PATIENT WAS FASTINGP ERFORMED BY: Lab[address] [id number] BY: LabCitizens Memorial HealthcareQxvugi8363 [address] RoadDublin [place] [id number] Monocytes (Bld) [#/Vol] 0.4 10*3/uL Normal 0.1-0.9 [facility]; [facility] Work Phone: Comment on above: PATIENT WAS FASTINGP ERFORMED BY: [address] [id number] BY: [facility] Cjvwek0898 [address] RoadDublin [place] [id number] Monocytes/100 WBC (Bld) 6 % Normal [facility] Work Phone: Comment on above: PATIENT WAS FASTINGP ERFORMED BY: [address] [id number] BY: [facility] Ccfbwy7251 [address] RoadDublin [place] [id number] Neutrophils #/vol (Bld) 4.4 {x10E3/uL} Normal 1.4-7.0 [facility] Work Phone: Comment on above: PATIENT WAS FASTINGP ERFORMED BY: [address] [id number] BY: LabLaf[facility] Center Cpuoeo9808 [address] RoadDublin [place] [id number] Neutrophils (Bld) [#/Vol] 4.4 10*3/uL Normal 1.4-7.0 [facility]; [facility] Work Phone: Comment on above: PATIENT WAS FASTINGP ERFORMED BY: Lab[address] [id number] BY: LabCo Hbkiba9183 [address] RoadDublin [place] [id number] Neutrophils/100 WBC (Bld) 69 % Normal [facility] Work Phone: Comment on above: PATIENT WAS FASTINGP ERFORMED BY: [address] [id number] BY: [facility] Ctvtqw0377 [address] RoadDublin [place] [id number] Platelets #/vol (Bld) 278 {x10E3/uL} Normal 150-379 [facility] Work Phone: Comment on above: PATIENT WAS FASTINGP ERFORMED BY: [facility] [address] [id number] BY: SAUL [facility] Zylumc6074 [address] RoadDublin [place] [id number] Platelets (Bld) [#/Vol] 278 10*3/uL Normal 150-379 [facility]; [facility] Work Phone: Comment on above: PATIENT WAS FASTINGP ERFORMED BY: [facility] [address] [id number] BY: SAUL [facility] Grtpyd9788 [address] RoadDublin [place] [id number] RBC #/vol (Bld) 4.77 {x10E6/uL} Normal 3.77-5.28 Comp [facility] hospitalensive Internal Medicine Work Phone: Comment on above: PATIENT WAS FASTINGP ERFORMED BY: [facility] [address] [id number] BY: SAUL [facility] Evjmwk5691 [address] RoadDublin [place] [id number] RBC (Bld) [#/Vol] 4.77 10*6/uL Normal 3.77-5.28 Compr ensive Internal Medicine; [facility] Work Phone: Comment on above: PATIENT WAS FASTINGP ERFORMED BY: [facility] [address] [id number] BY: SAUL [facility] Bjentj6034 [address] RoadDublin [place] [id number] WBC #/vol (Bld) 6.4 {x10E3/uL} Normal 3.4-10.8 Compr ensive Internal Medicine Work Phone: Comment on above: PATIENT WAS FASTINGP ERFORMED BY: LabCo[address] [id number] BY: SAUL [facility] Gbyecl78[address] [facility] [id number] WBC (Bld) [#/Vol] 6.4 10*3/uL Normal 3.4-10.8 [facility] Internal Medicine; [facility] Work Phone: Comment on above: PATIENT WAS FASTINGP ERFORMED BY: LabCo[address] [id number] BY: [facility] Cdawsq40[address] [facility] [id number] METABOLIC PANEL, COMPREHENSI VE ([id number])Ordered By: News Photographer on 10-29-2018 Albumin mass conc 4.4 g/dL Normal 3.6-4.8 [facility] Work Phone: Comment on above: PATIENT WAS FASTINGP ERFORMED BY: Labcurated.by[address] [id number] BY: [facility] Tjkonn2[address] [facility] [id number] Albumin/Globulin mass ratio 1.5 {ratio} Normal 1.2-2.2 [facility] Internal Medicine Work Phone: Comment on above: PATIENT WAS FASTINGP ERFORMED BY: Labcurated.by[address] [id number] BY: [facility] Dowdnh7[address] [facility] [id number] ALP [Catalytic activity/Vol] 93 U/L Normal 39-117 [facility]; [facility] Work Phone: Comment on above: PATIENT WAS FASTINGP ERFORMED BY: LabCo[address] [id number] BY: [facility] Pcalkx0721 [address] [facility] [id number] ALP enzyme act/vol 93 [iU]/L Normal 39-117 [facility] Internal Medicine Work Phone: Comment on above: PATIENT WAS FASTINGP ERFORMED BY: Lab[address] [id number] BY: [facility] Iqdoeg7993 Rehman RoadDublin [place] [id number] ALT [Catalytic activity/Vol] 15 U/L Normal 0-32 [facility]; [facility] Internal Medicine Work Phone: Comment on above: PATIENT WAS FASTINGP ERFORMED BY: Lab[address] [id number] BY: [facility] Acfgpm5030 Re[address] RoadDublin [place] [id number] ALT enzyme act/vol 15 [iU]/L Normal 0-32 [facility] Internal Medicine Work Phone: Comment on above: PATIENT WAS FASTINGP ERFORMED BY: [address] [id number] BY: LabCoClara Maass Medical CenterJvhrux3139 Rehman RoadDublin [place] [id number] AST [Catalytic activity/Vol] 19 U/L Normal 0-40 [facility] Internal Medicine; [facility] Internal Medicine Work Phone: Comment on above: PATIENT WAS FASTINGP ERFORMED BY: [address] [id number] BY: LabUniversity [facility] Health6370 [address] RoadDublin [place] [id number] AST enzyme act/vol 19 [iU]/L Normal 0-40 [facility] Internal Medicine Work Phone: Comment on above: PATIENT WAS FASTINGP ERFORMED BY: Lab[address] [id number] BY: [facility] Mumcre1029 [address] RoadDublin [place] [id number] Bilirubin mass conc 0.4 mg/dL Normal 0.0-1.2 [facility] Internal Medicine Work Phone: Comment on above: PATIENT WAS FASTINGP ERFORMED BY: Lab[address] [id number] BY: [facility] Zidqjg7815 [address] RoadDublin [place] [id number] Calcium mass conc 9.6 mg/dL Normal 8.7-10.3 Compreh ensive Internal Medicine Work Phone: Comment on above: PATIENT WAS FASTINGP ERFORMED BY: [facility] [address] [id number] BY: [facility] Xedqyx7[address] [facility] [id number] Chloride molar conc 107 mmol/L Abnormal 96-106 Compr ehensive Internal Medicine Work Phone: Comment on above: PATIENT WAS FASTINGP ERFORMED BY: BN [facility] [address] [id number] BY: CB [facility] Dkkdea0462 [address] [facility] [id number] CO2 molar conc 23 mmol/L Normal 20-29 Comprehens rodrigo Internal Medicine Work Phone: Comment on above: PATIENT WAS FASTINGP ERFORMED BY: LabCo[address] [id number] BY: [facility] Idujbk30[address] [facility] [id number] Creatinine mass conc 1.24 mg/dL Abnormal 0.57-1.00 Comp rehensive Internal Medicine Work Phone: Comment on above: PATIENT WAS FASTINGP ERFORMED BY: [facility] [address] [id number] BY: [facility] Drotcu[address] [facility] [id number] GFR/1.73 sq M predicted among blacks CKD-EPI vol rate/area (S/P/Bld) 51 mL/min/1.73 Abnormal Comprehensiv e Internal Medicine Work Phone: Comment on above: PATIENT WAS FASTINGP ERFORMED BY: [facility] [address] [id number] BY: [facility] Gewdiq[address] [facility] [id number] GFR/1.73 sq M predicted among non-blacks CKD-EPI vol rate/area (S/P/Bld) 44 mL/min/1.73 Abnormal [facility] Work Phone: Comment on above: PATIENT WAS FASTINGP ERFORMED BY: Lab[address] [id number] BY: ASUL LabCoClara Maass Medical CenterFrwqhf3875 [facility] [id number] Globulin mass conc (S) 2.9 g/dL Normal 1.5-4.5 [facility] Work Phone: Comment on above: PATIENT WAS FASTINGP ERFORMED BY: Lab[address] [id number] BY: SAUL [facility] Ftwpzq55[address] [facility] [id number] Glucose mass conc 94 mg/dL Normal 65-99 Compreh ensive Internal Medicine Work Phone: Comment on above: PATIENT WAS FASTINGP ERFORMED BY: [address] [id number] BY: SAUL LabUniversity Of [facility] Health[address] [facility] [id number] Potassium molar conc 5.3 mmol/L Abnormal 3.5-5.2 Comp rehensive Internal Medicine Work Phone: Comment on above: PATIENT WAS FASTINGP ERFORMED BY: Lab[address] [id number] BY: LabCoClara Maass Medical CenterCykpdn6023 [facility] [id number] Protein mass conc 7.3 g/dL Normal 6.0-8.5 Compreh ensive Internal Medicine Work Phone: Comment on above: PATIENT WAS FASTINGP ERFORMED BY: Lab[address] [id number] BY: LabCoClara Maass Medical CenterGegbxn55[address] [facility] [id number] Sodium molar conc 143 mmol/L Normal 134-144 Compreh ensive Internal Medicine Work Phone: Comment on above: PATIENT WAS FASTINGP ERFORMED BY: Lab[address] [id number] BY: SAUL [facility] Bkhdfx3143 [address] RoadDublin [place] [id number] Urea nitrogen mass conc 20 mg/dL Normal 8- [facility] Work Phone: Comment on above: PATIENT WAS FASTINGP ERFORMED BY: BN [facility] [address] [id number] BY: SAUL [facility] Qghluv7438 [address] RoadDublin [place] [id number] Urea nitrogen/Creatinine mass ratio 16 mg/mg Normal 12- [facility] Work Phone: Comment on above: PATIENT WAS FASTINGP ERFORMED BY: [facility] [address] [id number] BY: SAUL [facility] Ljmyen5317 Rehman RoadDuin [place] [id number] MICROALBUMINOrdered By: Syst em Pattern Gater on 10-29-2018 Albumin DL <= 20 mg/L mass conc (U) 8.0 ug/mL Normal [facility] Work Phone: Comment on above: PATIENT WAS FASTINGP ERFORMED BY: [employer] [id number] BY: SAUL [facility] Ituogb0432 [address] [facility] [id number] Albumin/Creatinine mass ratio (U) 7.5 {mg/g_creat} Normal 0.0-30.0 [facility] Work Phone: Comment on above: Normal: 0.0 - 30.0 A lbuminuria: 31.0 - 300.0 Clinical albuminuria: >300.0 PATIENT WAS FASTINGP ERFORMED BY: HulafrogCo[address] [id number] BY: SAUL [facility] Iclawo2151 [address] [facility]in [place] [id number] Creatinine mass conc (U) 106.7 mg/dL Normal [facility] Work Phone: Comment on above: PATIENT WAS FASTINGP ERFORMED BY: [facility] [address] [id number] BY: [facility] Vucpyq1407 [address] RoadDublin [place] [id number] Microscopic ExaminationOrder ed By: News Photographer on 10-29-2018 Bacteria LM.HPF #/area (Urine sed) Few Normal [facility] Work Phone: Comment on above: PATIENT WAS FASTINGP ERFORMED BY: [address] [id number] BY: [facility] Gepplu7211 [address] RoadDublin [place] [id number] Casts LM Nom (Urine sed) Hyaline casts Normal [facility] Work Phone: Comment on above: PATIENT WAS FASTINGP ERFORMED BY: [address] [id number] BY: [facility] Ujxuet2088 [address] RoadDublin [place] [id number] Casts LM Ql (Urine sed) Present Abnormal [facility] Work Phone: Comment on above: PATIENT WAS FASTINGP ERFORMED BY: [address] [id number] BY: [facility] Txdddv5937 [address] RoadDublin [place] [id number] Epithelial cells LM.HPF #/area (Urine sed) 0-10 Normal 0 - 10 [facility] Work Phone: Comment on above: PATIENT WAS FASTINGP ERFORMED BY: [address] [id number] BY: [facility] Tizpho5848 [address] RoadDublin [place] [id number] Mucus Ql (Urine sed) Present Normal Comp rehensive Internal Medicine Work Phone: Comment on above: PATIENT WAS FASTINGP ERFORMED BY: [address] [id number] BY: [facility] Huamxi9826 [address] RoadDublin [place] [id number] RBC LM.HPF #/area (Urine sed) 3-10 Abnormal 0 - 2 [facility] Work Phone: Comment on above: PATIENT WAS FASTINGP ERFORMED BY: [employer] [id number] BY: [facility] Rvhexa67[address] [facility] [id number] WBC LM.HPF #/area (Urine sed) 0-5 Normal 0 - 5 [facility] Work Phone: Comment on above: PATIENT WAS FASTINGP ERFORMED BY: [employer] [id number] BY: LabUniversity Of [facility] Health[address] [facility] [id number] NMR Profile ([id number])Ordered B y: News Photographer on 10-29-2018 Cholesterol in LDL mass conc 98 mg/dL Normal 0-99 [facility] Work Phone: Comment on above: . Optimal < 100 Abov e optimal 100 - 129 Borderline 130 - 159 High 160 - 189 Very high > 189 .LDL-C is inaccurate if patient is non-fasting. PATIENT WAS FASTINGP ERFORMED BY: [employer] [id number] BY: LabUniversity Of [facility] Health[address] [facility] [id number] Cholesterol mass conc 164 mg/dL Normal 100-199 [facility] prehensive Internal Medicine Work Phone: Comment on above: PATIENT WAS FASTINGP ERFORMED BY: [employer] [id number] BY: LabLaf[facility] Tkghna5[address] [facility] [id number] Lipoprotein.alpha molar conc 26.4 umol/L Abnormal [facility] Work Phone: Comment on above: PATIENT WAS FASTINGP ERFORMED BY: [employer] [id number] BY: [facility] Dlgrka[address] [facility] [id number] Lipoprotein.beta.subp article Entitic length 21.8 nm Normal [facility] Work Phone: Comment on above: INTERPRETATIVE INFORMATION PARTICLE CONCENTRATION AND SIZE <--Lower CVD Risk Higher CVD Risk--> LDL AND HDL PARTICLES Percentile in Reference Population HDL-P (total) High 75th 50th 25th Low >34.9 34.9 30.5 26.7 <26.7 . Small LDL-P Low 25th 50th 75th High <117 117 527 839 >839 . LDL Size <-Large (Pattern A)-> <-Small (Pattern B)-> 23.0 20.6 20.5 19.0 Small LDL-P and LDL Size are associated with CVD risk, but not afterLDL-P is taken into account. .These assays were developed and their performance characteristicsdetermined by [employer]. These assays have not been cleared by [employer] Food and Drug Administration. The clinical utility of theselaboratory values have not been fully established. PATIENT WAS FASTINGP ERFORMED BY: [employer] [id number] BY: [employer] [facility] [id number] Lipoprotein.beta.subp article molar conc 1204 nmol/L Abnormal [facility] Work Phone: Comment on above: Low < 1000 Moderate 1000 - 1299 Borderline-High 1300 - 1599 High 1600 - 2000 Very High > 2000 PATIENT WAS FASTINGP ERFORMED BY: [employer] [id number] BY: [employer] [facility] [id number] Lipoprotein.beta.subp article.small molar conc 340 nmol/L Normal [facility] Work Phone: Comment on above: PATIENT WAS FASTINGP ERFORMED BY: [employer] [id number] BY: Labcurated.by Kyflwx0491 Rehman RoadAdventHealth [id number] Triglyceride mass conc 102 mg/dL Normal 0-149 [facility] Work Phone: Comment on above: PATIENT WAS FASTINGP ERFORMED BY: [employer] [id number] BY: [employer] Hgfzdb9527 [address] [facility] [id number] NMR Profile (15899) 46 mg/dL Normal Compr [facility] Internal Medicine Work Phone: Comment on above: PATIENT WAS FASTINGP ERFORMED BY: [employer] [id number] BY: [employer] Ghstay4009 [address] [facility] [id number] NMR Profile (98134) 98 mg/dL Normal 0-99 Compr ensive Internal Medicine; [facility] Work Phone: Comment on above: . Optimal < 100 Abov e optimal 100 - 129 Borderline 130 - 159 High 160 - 189 Very high > 189 .LDL-C is inaccurate if patient is non-fasting. PATIENT WAS FASTINGP ERFORMED BY: [employer] [id number] BY: HulafrogLafayette Regional [facility] Center Hvskxb36[address] [facility] [id number] URINALYSIS, W/ MICRO ([id number]) Ordered By: News Photographer on 10-29-2018 Appearance Nom (U) Clear Normal Compre [facility] Internal Medicine Work Phone: Comment on above: PATIENT WAS FASTINGP ERFORMED BY: Hulafrog[address] [id number] BY: [facility] Ybebde2391 Re[address] Bookmytrainings.comCone Health Medcenter High Pointin [place] [id number] Bilirubin Ql (U) Negative Normal Comprehe nsive Internal Medicine Work Phone: Comment on above: PATIENT WAS FASTINGP ERFORMED BY: Lab[address] [id number] BY: SAUL [facility] Xlpdmq1443 Re[address] RoadDublin [place] [id number] Bilirubin Ql (U) Negative Normal Comprehe nsive Internal Medicine; [facility] Work Phone: Comment on above: PATIENT WAS FASTINGP ERFORMED BY: LabCo[address] [id number] BY: SAUL [facility] Qjrawv6319 Re[address] RoadDublin [place] [id number] Color Nom (U) Yellow Normal Comprehensi ve Internal Medicine Work Phone: Comment on above: PATIENT WAS FASTINGP ERFORMED BY: Lab[address] [id number] BY: SAUL [facility] Bavtnw4044 Re[address] RoadDublin [place] [id number] Glucose Ql (U) Negative Normal Comprehens [facility] Internal Medicine Work Phone: Comment on above: PATIENT WAS FASTINGP ERFORMED BY: Lab[address] [id number] BY: SAUL [facility] Vvocut5583 [address] RoadDublin [place] [id number] Glucose Ql (U) Negative Normal Comprehens [facility] Internal Medicine; [facility] Work Phone: Comment on above: PATIENT WAS FASTINGP ERFORMED BY: Lab[address] [id number] BY: SAUL [facility] Kfvcwl3429 [address] RoadDublin [place] [id number] Hemoglobin Ql (U) 1+ Abnormal Compreh ensive Internal Medicine Work Phone: Comment on above: PATIENT WAS FASTINGP ERFORMED BY: Lab[address] [id number] BY: SAUL [facility] Jzhlsm7937 [address] RoadDublin [place] [id number] Ketones Ql (U) Negative Normal Comprehens [facility] Internal Medicine Work Phone: Comment on above: PATIENT WAS FASTINGP ERFORMED BY: Lab[address] [id number] BY: [facility] Lwrbws7884 [address] RoadDublin [place] [id number] Ketones Ql (U) Negative Normal Comprehens [facility] Internal Medicine; [facility] Work Phone: Comment on above: PATIENT WAS FASTINGP ERFORMED BY: [address] [id number] BY: [facility] Fxmxyq4748 [address] RoadDublin [place] [id number] Leukocyte esterase Test strip Ql (U) Negative Normal [facility] Work Phone: Comment on above: PATIENT WAS FASTINGP ERFORMED BY: Lab[address] [id number] BY: [facility] Wdzoau5438 [address] RoadDublin [place] [id number] Leukocyte esterase Test strip Ql (U) Negative Normal [facility]; [facility] Work Phone: Comment on above: PATIENT WAS FASTINGP ERFORMED BY: [address] [id number] BY: [facility] Vjmxfa9691 [address] RoadDublin [place] [id number] Microscopic observation LM Nom (Urine sed) See below: Normal [facility] Work Phone: Comment on above: Microscopic was tomi cated and was performed. PATIENT WAS FASTINGP ERFORMED BY: [address] [id number] BY: [facility] Akvees4921 [address] RoadDublin [place] [id number] Nitrite Ql (U) Negative Normal Comprehens [facility] Internal Medicine Work Phone: Comment on above: PATIENT WAS FASTINGP ERFORMED BY: Lab[address] [id number] BY: SAUL [facility] Jdbqew7027 Re[address] RoadDublin [place] [id number] Nitrite Ql (U) Negative Normal Comprehens [facility] Internal Medicine; [facility] Work Phone: Comment on above: PATIENT WAS FASTINGP ERFORMED BY: Lab[address] [id number] BY: SAUL [facility] Wgemww1672 [address] RoadDublin [place] [id number] pH (U) 5.5 [pH] Normal 5.0-7.5 [facility] Work Phone: Comment on above: PATIENT WAS FASTINGP ERFORMED BY: [address] [id number] BY: SAUL [facility] Ylbqah2414 [address] RoadDublin [place] [id number] Protein Ql (U) Negative Normal Comprehens [facility] Internal Medicine Work Phone: Comment on above: PATIENT WAS FASTINGP ERFORMED BY: [address] [id number] BY: SAUL [facility] Cduhcn0849 [address] RoadDublin [place] [id number] Protein Ql (U) Negative Normal Comprehens [facility] Internal Medicine; [facility] Work Phone: Comment on above: PATIENT WAS FASTINGP ERFORMED BY: Lab[address] [id number] BY: SAUL [facility] Kiqbkj1118 [address] RoadDublin [place] [id number] Specific gravity Relative Density (U) 1.018 1 Normal 1.005-1.03 0 [facility] Work Phone: Comment on above: PATIENT WAS FASTINGP ERFORMED BY: [address] [id number] BY: SAUL [facility] Vttimd3920 [address] RoadDublin [place] [id number] Urobilinogen (U) [Mass/Vol] 0.2 mg/dL Normal 0.2-1.0 [facility]; [facility] Work Phone: Comment on above: PATIENT WAS FASTINGP ERFORMED BY: LabCo[address] [id number] BY: LabCoClara Maass Medical CenterTvzejy20[address] [facility] [id number] Urobilinogen Test strip mass conc (U) 0.2 mg/dL Normal 0.2-1.0 Comprehensiv e Internal Medicine Work Phone: Comment on above: PATIENT WAS FASTINGP ERFORMED BY: LabCo[address] [id number] BY: LabJeffrey Ville 6553970 [facility] [id number] BNP,B-Type NATRIURETIC PEPTI DEOrdered By: News Photographer on 09-30-2018 BNP,B-Type NATRIURETIC PEPTIDE 105.1 pg/mL Abnormal 0-100 Comprehensiv e Internal Medicine Work Phone: Comment on above: [facility] [address] [place], [place], [phone] Basic Metabolic Profile (BMP )Ordered By: News Photographer on 09-30-2018 Basic metabolic 2000 panel 58 mL/min Abnormal [facility] Work Phone: Comment on above: GFR Calc [facility] [address]vaw[address] [place], [place], [phone] Basic metabolic 2000 panel 7 1 Normal 5-15 [facility] Work Phone: Comment on above: [facility] [address]nebr[address] [place], [place], [phone] Basic metabolic 2000 panel 142 mmol/L Normal 136-145 [facility] Work Phone: Comment on above: [facility] [address]vnql[address]clxg[address] [place], [place], [address]30691 Basic metabolic 2000 panel 25.0 mmol/L Normal 21.0-32.0 [facility] Work Phone: Comment on above: [facility] [address] [place], [place], [address]2711 Basic metabolic 2000 panel 8.5 mg/dL Normal 8.5-10.1 [facility] Work Phone: Comment on above: [facility] [address] [place], [address] Basic metabolic 2000 panel 15.1 {RATIO} Normal 10-20 [facility] Work Phone: Comment on above: [facility] [address] [place], [place], [address]55731 Basic metabolic 2000 panel 41.77 ml/min Normal [facility] Work Phone: Comment on above: [facility] [address]fg[address] [place], [place], [address]2571 Basic metabolic 2000 panel 4.2 mmol/L Normal 3.5-5.1 [facility] Work Phone: Comment on above: Moderate Hemolysis, Result may be falsely increased. [facility] [address] [place], [place], [address] Basic metabolic 2000 panel 96 mg/dL Normal 74-106 [facility] Work Phone: Comment on above: Please note revised GLUCOSE reference range /02/2018. [facility] [address] [place], [place], [address]51 Basic metabolic 2000 panel 18 mg/dL Normal 7-18 [facility] Work Phone: Comment on above: [facility] [address] [place], [place], [address] Basic metabolic 2000 panel 110 mmol/L Abnormal 98-107 [facility] Work Phone: Comment on above: [facility] [address] [place], [address] Basic metabolic 2000 panel 1.19 mg/dL Abnormal 0.55-1.02 [facility] Work Phone: Comment on above: The validity of the calculated GFR AND GFRAA in patients over70 years has not been determined. Clinical correlation isessential. [facility] [address] [place], [place], [phone] Basic metabolic 2000 panel 48 mL/min Abnormal [facility] Work Phone: Comment on above: Non- GFR Calc [facility] [address] [place], [place], [phone] Bedside GlucoseOrdered By: S ystem Pattern Gater on 09-30-2018 Bedside Glucose 86 mg/dL Normal 70-110 [facility]prehen [facility] Internal [facility] Work Phone: Comment on above: MANAGEMENT OF PATIEN T CARE PER NURSING PROTOCOL [facility] LaboratoryPoint of Rsnf[address] [place] [address] CBC W/Diff, AutomatedOrdered By: News Photographer on 09-30-2018 Absolute Neut 4.2 {X10_3/uL} Normal 2.0-7.7 Compreh ensive Internal Medicine Work Phone: Comment on above: [facility] [address] [place], [address] Basophils/100 WBC (Bld) 0.3 % Normal 0-1 [facility] Work Phone: Comment on above: [facility] [address] [place], [phone] Eosinophils/100 WBC (Bld) 2.9 % Normal 0-5 [facility] Work Phone: Comment on above: [facility] [address] [place], [address] Erythrocyte distribution width Ratio (RBC) 14.4 % Normal 11.6-14.6 [facility] Work Phone: Comment on above: [facility] [address] [place], [place], [phone] Hematocrit Volume Fraction (Bld) 37.9 % Normal 37-47 [facility] Work Phone: Comment on above: [facility] [address] [place], [place], [phone] Hemoglobin mass conc (Bld) 12.1 g/dL Normal 12.0-15.0 [facility] Work Phone: Comment on above: [facility] [address] [place], [place], [phone] IM GRAN % 0.000 % Normal 0.0-0.9 [facility] Work Phone: Comment on above: IG% - Immature Granu locytes (promyelocytes, myelocytes andmetamyelocytes) > 1% indicates that a LEFT SHIFT is Present. [facility] [address] [place], [place], [phone] Lymphocytes #/vol (Bld) 1.86 {X10_3/ul} Normal 0.83-4.51 [facility] Work Phone: Comment on above: [facility] [address] [place], [address] Lymphocytes/100 WBC (Bld) 28.3 % Normal 19-41 [facility] Work Phone: Comment on above: [facility] [address] [place], [address] MCH Entitic mass (RBC) 27.9 pg Normal 27.0-32.0 [facility] Work Phone: Comment on above: [facility] [address] [place], [address] MCHC mass conc (RBC) 31.9 {g/gl} Abnormal 32-36 Com prehensive Internal Medicine Work Phone: Comment on above: [facility] [address] [place], [address] MCV Entitic volume (RBC) 87.3 fL Normal 81-99 [facility] Work Phone: Comment on above: [facility] [address] [place], [address] Monocytes/100 WBC (Bld) 4.9 % Normal 0-10 [facility] Work Phone: Comment on above: [facility] [address] [place], [address] Neutrophils/100 WBC (Bld) 63.6 % Normal 47-70 [facility] Work Phone: Comment on above: [facility] [address] [place], [address] Platelet mean volume Entitic volume (Bld) 10.6 fL Normal 6.2-12.0 Comprehensi Internal Medicine Work Phone: Comment on above: [facility] [address] [place], [address] Platelets #/vol (Bld) 236 10*3/uL Normal 150-450 [facility] Internal Medicine Work Phone: Comment on above: [facility] [address] [place], [address] RBC #/vol (Bld) 4.34 {M/mm3} Normal 4.2-5.4 Compreh [facility] Internal Medicine Work Phone: Comment on above: [facility] [address] [place], [address] RDW SD 45.8 fL Abnormal 35.1-43.9 [facility] Internal Medicine Work Phone: Comment on above: [facility] [address] [place], [address] WBC #/vol (Bld) 6.6 10*3/uL Normal 4.4-11.0 Comprehe nsive Internal Medicine Work Phone: Comment on above: [facility] chantel [address] [place], [address] Troponin-IOrdered By: News Photographer on 09-30-2018 Troponin I.cardiac mass conc ng/mL Normal [facility] Work Phone: Comment on above: TROPONIN-I EXPECTED VALUES <0.045 Negative 0.045 - 0.590 Consistent with Cardiac Damage > OR = 0.600 Critical Value Not every elevated troponin is indicative of CA. Thesevalues should be used with clinical judgement in examiningthe patient's clinical picture for diagnosis. To establisha diagnosis of CA versus myocardial injury, there must be ademonstrated rise and/or fall in the troponin values, inaddition to ischemic symptoms, EKG changes, new regionalwall motion abnormality, and/or angiographical evidence. PLEASE NOTE: REFERENCE RANGES EDITED 17 [facility] [address] [place], [address] MA Mamm Screen w/CAD if perf ormed bilaton 04-24-2018 MA Mamm Screen w/CAD if performed bilat Exam Date/Time:04/23/2018 11:39 EDTReason for Exam:SCREENING;ScreeningR eportSTUDY:Digital mammography screening; 04/23/2018 11:39 amACCESSION NUMBER(S):[id number] 3ORDERING CLINICIAN:Troy OvalleINDICATION:Richard wilsonCOMPARISON:Comparison is made to prior digital mammograms dated 02/22/2015FINDINGS:CC and MLO 2D digital mammographic images of the bilateral breasts were obtained.There are areas of scattered fibroglandular tissue. A small well-defined rounded mass is seen in the central aspect of the left breast, just medial to midline, unchanged from prior studies.No discrete mass or focal asymmetry is identified. No suspicious microcalcifications or foci of architectural distortion are seen. There has been no significant change.This study was interpreted with CAD.IMPRESSION:No mammographic evidence of malignancy.BI-RADS CATEGORY:Category: 2 - Benign Finding.Recommendation: Normal Interval Follow-up, Over Age 40.Recall Interval: 12 Months.Breast Density: Scattered Fibroglandular Density. FINAL REPORT Dictated: 04/24/2018 8:41 am Christian Mata MD CSigned (Electronic Signature): 04/24/2018 8:41 amSigned by: Christian Mata MD Technologist: DHAssessment: BI-RADS Category 2-Benign findingRecommendation: Normal interval follow-up Normal [facility] IGP W/hpv Rfx [id number] 04-21 Diagnosis: See Ref Lab Report Normal [facility] Comment on above: Order Comment: Thin Prep. Menopause Performed By: #### 1 [id number] ####[place] [address] Pathology ([facility])on 04-16-2018 Pathology ([facility]) FINAL GYNECOLOGIC CYTOLOGY [id number] ADEQUACYSatisfactory for EvaluationEndocervical component absent but acceptable due to patient age/historyGENERAL CATEGORIZATIONNegative for Intraepithelial Lesion or MalignancyCOMMENTSample has been treated with glacial acetic acid for excessive blood, debris,inflammation and/or lubricant.CLINICAL HISTORYMenopauseSPECIMEN( A) SCREENING CERVICAL/ENDOCERVICAL THIN PREP VIALPerformed at [facility], [address] [place] [id number] by: Signed Out by: SOFIA FELIX Special Education Professional Reported: 04/18/2018 Normal [facility] Healthcare Comment on above: Performed By: #### G YN ####[facility] [address] [place] [address] Rapid Flu (48671 x 2)Ordered By: Eli Chaves on 08-06-2017 FLUAV Ag IA Ql (Throat) Negative Normal [facility] Work Phone: FLUAV Ag IA Ql (Throat) Negative Normal [facility]; [facility] Work Phone: Rapid Flu (31348 x 2)Ordered By: Valarie Goodman on 09-20-2016 FLUAV Ag IA Ql (Throat) neg a/b Normal [facility] Work Phone: URINE GEOVANNA CULTURE-IDENTIFICA [place] ([id number])Ordered By: News Photographer on 07-07-2013 Bacteria identified Cx Nom (U) Final report Normal [facility] Work Phone: Comment on above: PATIENT NOT FASTINGP ERFORMED BY: [facility] Zaijox[address] [facility] [id number] Information: [id number] Bacteria identified Cx Nom (U) MUG Normal [facility] Work Phone: Comment on above: Mixed urogenital mirta raGreater than 100,000 colony forming units per mL PATIENT NOT FASTINGP ERFORMED BY: [facility] Dtojqg[address] [facility] [id number] Information: [id number] Urinalysis, Office ([id number])Or dered By: Alia Oh on 07-06-2013 Bilirubin Ql (U) Negative Normal Comprehe nsive Internal Medicine Work Phone: Glucose Test strip mass conc (U) Negative Normal [facility] Work Phone: Hemoglobin Ql (U) Hemolyzed Large Normal Co mprehensive [facility] Medicine Work Phone: Ketones Ql (U) Negative Normal Comprehens rodrigo [facility] Work Phone: Leukocyte esterase Test strip Ql (U) Negative Normal [facility] Work Phone: Nitrite Ql (U) Negative Normal Comprehens [facility] Work Phone: pH (U) 7.0 [pH] Normal [facility] Work Phone: Protein Ql (U) Negative Normal Comprehens [facility] Work Phone: Specific gravity Relative Density (U) 1.025 1 Normal Comprehensi ve Internal Medicine Work Phone: Urobilinogen mass/time (24H U) Normal Normal [facility] Work Phone: Urinalysis, Office ([id number])on 07-06-2013 Bilirubin Ql (U) Negative Normal Comprehe nsive Internal Medicine; [facility] Work Phone: Glucose Test strip (U) [Mass/Vol] Negative Normal [facility]; [facility] Work Phone: Ketones Ql (U) Negative Normal Comprehens [facility]; [facility] Work Phone: Leukocyte esterase Test strip Ql (U) Negative Normal [facility]; [facility] Work Phone: Nitrite Ql (U) Negative Normal Comprehens [facility]; [facility] Work Phone: Protein Ql (U) Negative Normal Comprehens [facility]; [facility] Work Phone: Urinalysis, Office ([id number])Or dered By: Alia Oh on 06-01-2013 Bilirubin Ql (U) Negative Normal Comprehe nsive Internal Medicine Work Phone: Glucose Test strip mass conc (U) Negative Normal [facility] Work Phone: Hemoglobin Ql (U) Hemolyzed Large Normal Co mprehensive [facility] Work Phone: Ketones Ql (U) Negative Normal Comprehens [facility] Work Phone: Leukocyte esterase Test strip Ql (U) Negative Normal [facility] Work Phone: Nitrite Ql (U) Negative Normal Comprehens [facility]igo [facility] Work Phone: pH (U) 5.0 [pH] Normal [facility] Work Phone: Comment on above: 5.5 Protein Ql (U) 30 mg/dL Normal Comprehens [facility] Work Phone: Specific gravity Relative Density (U) 1.025 1 Normal Comprehensi ve Internal Medicine Work Phone: Urobilinogen mass/time (24H U) Normal Normal [facility] Work Phone: Urinalysis, Office ([id number])on 06-01-2013 Bilirubin Ql (U) Negative Normal Comprehe nsive Internal Medicine; [facility] Work Phone: Glucose Test strip (U) [Mass/Vol] Negative Normal [facility]; [facility] Work Phone: Ketones Ql (U) Negative Normal Comprehens [facility]; [facility] Work Phone: Leukocyte esterase Test strip Ql (U) Negative Normal [facility]; [facility] Work Phone: Nitrite Ql (U) Negative Normal Comprehens [facility]; [facility] Work Phone: Metabolic Panel, Basic ([phone])Ordered By: News Photographer on 05-19-2013 Calcium mass conc 9.6 mg/dL Normal 8.6-10.2 Compreh ensive Internal Medicine Work Phone: Comment on above: PATIENT NOT FASTINGP ERFORMED BY: CB [facility] Elihjz[address]6 [address] RoadDublin [place] [id number] Information: [id number] Chloride molar conc 106 mmol/L Normal 97-108 Compr ehensive Internal Medicine Work Phone: Comment on above: PATIENT NOT FASTINGP ERFORMED BY: CB [facility] Bgiues0906 Re[address] RoadDublin [place] [id number] Information: [id number] CO2 molar conc 22 mmol/L Normal 19-28 Comprehens rodrigo [facility] Work Phone: Comment on above: PATIENT NOT FASTINGP ERFORMED BY: CB [facility] [address]uhkrb[address] RoadDublin [place] [id number] Information: [id number] Creatinine mass conc 0.77 mg/dL Normal 0.57-1.00 Comp rehensive Internal Medicine Work Phone: Comment on above: PATIENT NOT FASTINGP ERFORMED BY: CB [facility] Gtuxbh0034 [address] RoadDublin [place] [id number] Information: [id number] GFR/1.73 sq M predicted among blacks CKD-EPI vol rate/area (S/P/Bld) 94 mL/min/1.73 Normal Comprehensiv e Internal Medicine Work Phone: Comment on above: PATIENT NOT FASTINGP ERFORMED BY: CB [facility] Dhvlok8975 Re[address] RoadDublin [place] [id number] Information: [id number] GFR/1.73 sq M predicted among non-blacks CKD-EPI vol rate/area (S/P/Bld) 82 mL/min/1.73 Normal [facility] Work Phone: Comment on above: PATIENT NOT FASTINGP ERFORMED BY: SAUL Barrientos Zktqgz7[address] [facility] [id number] Information: [id number] Glucose mass conc 97 mg/dL Normal 65-99 Compreh ensive Internal Medicine Work Phone: Comment on above: PATIENT NOT FASTINGP ERFORMED BY: [address] [id number] Information: [id number] Potassium molar conc 4.1 mmol/L Normal 3.5-5.2 Comp rehensive Internal Medicine Work Phone: Comment on above: PATIENT NOT FASTINGP ERFORMED BY: [address] [id number] Information: [id number] Sodium molar conc 142 mmol/L Normal 134-144 Compreh ensive Internal Medicine Work Phone: Comment on above: PATIENT NOT FASTINGP ERFORMED BY: [address] [id number] Information: [id number] Urea nitrogen mass conc 15 mg/dL Normal 8-27 [facility] Work Phone: Comment on above: PATIENT NOT FASTINGP ERFORMED BY: [address] [id number] Information: [id number] Urea nitrogen/Creatinine mass ratio 19 mg/mg Normal 11-26 [facility] Work Phone: Comment on above: PATIENT NOT FASTINGP ERFORMED BY: [place] [id number] [facility] [id number] Information: [id number] URINE GEOVANNA CULTURE-JORGE COL C OUNT ([id number])Ordered By: News Photographer on 05-19-2013 Bacteria identified Cx Nom (U) MUG Normal [facility] Work Phone: Comment on above: Mixed urogenital mirta raGreater than 100,000 colony forming units per mL PATIENT NOT FASTINGP ERFORMED BY: [facility] Rqdctx6[address] [facility] [id number] Information: SRC:UR [id number] Bacteria identified Cx Nom (U) Final report Normal [facility] Work Phone: Comment on above: PATIENT NOT FASTINGP ERFORMED BY: [facility] Yuuiwc[address] [facility] [id number] Information: SRC:UR [id number] Urinalysis, Office ([id number])Or dered By: Little Cadrenas on 05-18-2013 Bilirubin Ql (U) Moderate Normal Comprehe nsive Internal Medicine Work Phone: Glucose Test strip (U) [Mass/Vol] Negative Normal [facility]; [facility] Work Phone: Glucose Test strip mass conc (U) Negative Normal [facility] Work Phone: Hemoglobin Ql (U) Hemolyzed Large Normal Co mprehensive [facility] Work Phone: Ketones Ql (U) Small Normal Comprehens [facility] Work Phone: Leukocyte esterase Test strip Ql (U) Negative Normal [facility] Work Phone: Leukocyte esterase Test strip Ql (U) Negative Normal [facility]; [facility] Work Phone: Nitrite Ql (U) Positive Normal Comprehens [facility] Work Phone: Nitrite Ql (U) Positive Normal Comprehens [facility]; [facility] Work Phone: pH (U) 6.0 [pH] Normal [facility] Work Phone: Protein Ql (U) 300 mg/dL Normal Comprehens [facility]drigo [facility] Work Phone: Specific gravity Relative Density (U) 1.025 1 Normal Comprehensi ve Internal Medicine Work Phone: Urobilinogen mass/time (24H U) Normal Normal [facility] Work Phone: Vital Signs Date Time Vital Sign Value Performing Clinician Facility 12-23-2024 13:00-0400 Body height 165.[address] Patricia Becker DO Work Phone: [facility] 12-23-2024 13:00-0400 Body mass index (BMI) [Ratio] 42.9 kg/m2 Dr. Patricia Becker DO Work Phone: [facility] 12-23-2024 13:00-0400 Body weight 117.[address] Patricia Becker DO Work Phone: [facility] 11-05-2024 07:32-0400 Body mass index (BMI) [Ratio] 41.5 kg/m2 Dr. Patricia Becker DO Work Phone: [facility] 11-05-2024 07:32-0400 Body weight 113.[address] Patricia Becker DO Work Phone: [facility] 11-05-2024 07:32-0400 Diastolic blood pressure 74 mm[Hg] Dr. Patricia Becker DO Work Phone: [facility] 11-05-2024 07:32-0400 Heart rate 62 /min Dr. Patricia Becker DO Work Phone: [facility] 11-05-2024 07:32-0400 Respiratory rate 18 /min Dr. Patricia Becker DO Work Phone: [facility] 11-05-2024 07:32-0400 SaO2% (BldA) [Mass fraction] 97 % Dr. Patricia Becker DO Work Phone: [facility] 11-05-2024 07:32-0400 Systolic blood pressure 121 mm[Hg] Dr. Patricia Becker DO Work Phone: [facility] 08-28-2023 00:18-0500 Diastolic blood pressure 80 mm[Hg] Dr. Patricia Becker Work Phone: [facility] 08-28-2023 00:18-0500 Heart rate 74 /min Dr. Patricia Becker Work Phone: [facility] 08-28-2023 00:18-0500 Respiratory rate 16 /min Dr. Patricia Becker Work Phone: [facility] 08-28-2023 00:18-0500 SaO2% (BldA) [Mass fraction] 97 % Dr. Patricia Becker Work Phone: [facility] 08-28-2023 00:18-0500 Systolic blood pressure 189 mm[Hg] Dr. Patricia Becker Work Phone: [facility] 08-27-2023 20:05-0500 Body height 165.[address] Patricia Becker Work Phone: [facility] 08-27-2023 20:05-0500 Body temperature 97.6 [degF] Dr. Patricia Becker Work Phone: [facility] 08-14-2023 20:28-0500 Diastolic blood pressure 79 mm[Hg] Dr. Patricia Becker Work Phone: [facility] 08-14-2023 20:28-0500 Heart rate 82 /min Dr. Patricia Beckre Work Phone: [facility] 08-14-2023 20:28-0500 Respiratory rate 16 /min Dr. Patricia Becker Work Phone: [facility] 08-14-2023 20:28-0500 SaO2% (BldA) [Mass fraction] 97 % Dr. Patricia Becker Work Phone: [facility] 08-14-2023 20:28-0500 Systolic blood pressure 144 mm[Hg] Dr. Patricia Becker Work Phone: [facility] 08-14-2023 16:24-0500 Body height 165.[address] Patricia Becker Work Phone: [facility] 08-14-2023 16:24-0500 Body mass index (BMI) [Ratio] 42 kg/m2 Dr. Patricia Becker Work Phone: [facility] 08-14-2023 16:24-0500 Body temperature 98.2 [degF] Dr. Patricia Becker Work Phone: [facility] 08-14-2023 16:24-0500 Body weight 114.[address] Patricia Becker Work Phone: [facility] 08-09-2023 17:10-0500 Body mass index (BMI) [Ratio] 41.4 kg/m2 Dr. Patricia Becker Work Phone: [facility] 08-09-2023 13:27-0500 Body temperature 98 [degF] Dr. Patricia Becker Work Phone: [facility] 08-09-2023 13:27-0500 Diastolic blood pressure 64 mm[Hg] Dr. Patricia Becker Work Phone: [facility] 08-09-2023 13:27-0500 Heart rate 83 /min Dr. Patricia Becker Work Phone: [facility] 08-09-2023 13:27-0500 Respiratory rate 14 /min Dr. Patricia Becker Work Phone: [facility] 08-09-2023 13:27-0500 SaO2% (BldA) [Mass fraction] 98 % Dr. Patricia Becker Work Phone: [facility] 08-09-2023 13:27-0500 Systolic blood pressure 114 mm[Hg] Dr. Patricia Becker Work Phone: [facility] 08-08-2023 12:09-0500 Body mass index (BMI) [Ratio] 41.4 kg/m2 Dr. Patricia Becker Work Phone: [facility] 08-07-2023 21:19-0500 Body height 165.[address] Patricia Becker Work Phone: [facility] 08-07-2023 21:19-0500 Body weight [address] Patricia Becker Work Phone: [facility] 08-07-2023 20:20-0500 Body temperature 97.8 [degF] Dr. Patricia Becker Work Phone: [facility] 08-07-2023 20:20-0500 Diastolic blood pressure 95 mm[Hg] Dr. Patricia Becker Work Phone: [facility] 08-07-2023 20:20-0500 Heart rate 76 /min Dr. Patricia Becker Work Phone: [facility] 08-07-2023 20:20-0500 Respiratory rate 15 /min Dr. Patricia Becker Work Phone: [facility] 08-07-2023 20:20-0500 SaO2% (BldA) [Mass fraction] 97 % Dr. Patricia Becker Work Phone: [facility] 08-07-2023 20:20-0500 Systolic blood pressure 144 mm[Hg] Dr. Patricia Becker Work Phone: [facility] 08-07-2023 17:56-0500 Body height [address] Patricia Becker Work Phone: [facility] 08-07-2023 17:56-0500 Body mass index (BMI) [Ratio] 40.2 kg/m2 Dr. Patricia Becker Work Phone: [facility] 08-07-2023 17:56-0500 Body weight 113.[address] Patricia Becker Work Phone: [facility] 04-29-2023 11:58-0400 Body height 162.56 cm JJ Lee LPN [facility]; [facility] Work Phone: 04-29-2023 11:58-0400 Body mass index (BMI) [Ratio] 40.85 kg/m2 JJ Lee CLAY [facility]; [facility] Work Phone: 04-29-2023 11:58-0400 Body surface area Derived from formula 2.11 m2 JJ Lee CLAY [facility]; [facility] Work Phone: 04-29-2023 11:58-0400 Body temperature 97.6 [degF] JJ Lee CLAY Comprehensiv e Internal Medicine; [facility] Work Phone: Comment on above: Method: Temporal 04-29-2023 11:58-0400 Body weight 107.96 kg JJ Lee CLAY [facility]; [facility] Work Phone: 04-29-2023 11:58-0400 Diastolic blood pressure 80 mm[Hg] JJ Lee CLAY [facility]; [facility] Work Phone: Comment on above: Patient Position: Sitting; Cuff Location : Left Arm; Cuff Size: Large 04-29-2023 11:58-0400 Heart rate 80 /min JJ Lee CLAY [facility]; [facility] Work Phone: Comment on above: Pattern: Regular 04-29-2023 11:58-0400 Respiratory rate 18 /min JJ Lee CLAY Com[facility]; [facility] Work Phone: Comment on above: Pattern: Unlabored 04-29-2023 11:58-0400 SaO2% (BldA) [Mass fraction] 97 % JJ Lee CLAY [facility]; [facility] Work Phone: Comment on above: Room air 04-29-2023 11:58-0400 Systolic blood pressure 120 mm[Hg] JJ Lee CLAY [facility]; [facility] Work Phone: Comment on above: Patient Position: Sitting; Cuff Location : Left Arm; Cuff Size: Large 04-12-2023 09:55-0400 Body height 162.56 cm Lino Ivan LPN [facility]; [facility] Work Phone: 04-12-2023 09:55-0400 Body mass index (BMI) [Ratio] 41.24 kg/m2 [facility]; [facility] Work Phone: 04-12-2023 09:55-0400 Body surface area Derived from formula 2.11 m2 [facility]; [facility] Work Phone: 04-12-2023 09:55-0400 Body temperature 97.3 [degF] [facility]; [facility] Work Phone: 04-12-2023 09:55-0400 Body weight 108.98 kg [facility]; [facility] Work Phone: 04-12-2023 09:55-0400 Diastolic blood pressure 70 mm[Hg] [facility]; [facility] Work Phone: Comment on above: Patient Position: Sitting; Cuff Location : Left Arm; Cuff Size: Standard 04-12-2023 09:55-0400 Heart rate 87 /min [facility]; [facility] Work Phone: Comment on above: Pattern: Regular 04-12-2023 09:55-0400 Respiratory rate 16 /min [facility]; [facility] Work Phone: Comment on above: Pattern: Unlabored 04-12-2023 09:55-0400 SaO2% (BldA) [Mass fraction] 97 % [facility]; [facility] Work Phone: Comment on above: Room air 04-12-2023 09:55-0400 Systolic blood pressure 120 mm[Hg] [facility]; [facility] Work Phone: Comment on above: Patient Position: Sitting; Cuff Location : Left Arm; Cuff Size: Standard 03-25-2023 12:01-0400 Body height 162.56 cm [facility]; [facility] Work Phone: 03-25-2023 12:01-0400 Body mass index (BMI) [Ratio] 41.73 kg/m2 [facility]; [facility] Work Phone: 03-25-2023 12:01-0400 Body surface area Derived from formula 2.13 m2 [facility]; [facility] Work Phone: 03-25-2023 12:01-0400 Body temperature 97 [degF] [facility]; [facility] Work Phone: 03-25-2023 12:01-0400 Body weight 110.28 kg [facility]; [facility] Work Phone: 03-25-2023 12:01-0400 Diastolic blood pressure 70 mm[Hg] [facility]; [facility] Work Phone: Comment on above: Patient Position: Sitting; Cuff Location : Left Arm; Cuff Size: Standard 03-25-2023 12:01-0400 Heart rate 81 /min [facility]; [facility] Work Phone: Comment on above: Pattern: Regular 03-25-2023 12:01-0400 Respiratory rate 18 /min [facility]; [facility] Work Phone: Comment on above: Pattern: Unlabored 03-25-2023 12:01-0400 SaO2% (BldA) [Mass fraction] 98 % [facility]; [facility] Work Phone: Comment on above: Room air 03-25-2023 12:01-0400 Systolic blood pressure 122 mm[Hg] [facility]; [facility] Work Phone: Comment on above: Patient Position: Sitting; Cuff Location : Left Arm; Cuff Size: Standard 02-25-2023 13:59-0400 Body height 162.56 cm [facility]; [facility] Work Phone: 02-25-2023 13:59-0400 Body mass index (BMI) [Ratio] 42.44 kg/m2 [facility]; [facility] Work Phone: 02-25-2023 13:59-0400 Body surface area Derived from formula 2.14 m2 [facility]; [facility] Work Phone: 02-25-2023 13:59-0400 Body temperature 97.3 [degF] [facility]; [facility] Work Phone: 02-25-2023 13:59-0400 Body weight 112.15 [facility]; [facility] Work Phone: 02-25-2023 13:59-0400 Diastolic blood pressure 70 mm[Hg] [facility]; [facility] Work Phone: Comment on above: Patient Position: Sitting; Cuff Location : Left Arm; Cuff Size: Standard 02-25-2023 13:59-0400 Heart rate 79 /min [facility]; [facility] Work Phone: Comment on above: Pattern: Regular 02-25-2023 13:59-0400 Respiratory rate 18 /min [facility]; [facility] Work Phone: Comment on above: Pattern: Unlabored 02-25-2023 13:59-0400 SaO2% (BldA) [Mass fraction] 99 % [facility]; [facility] Work Phone: Comment on above: Room air 02-25-2023 13:59-0400 Systolic blood pressure 124 mm[Hg] L[place] [facility]; [facility] Work Phone: Comment on above: Patient Position: Sitting; Cuff Location : Left Arm; Cuff Size: Standard 10-25-2022 09:50-0400 Body height 162.56 cm Meli Wells [facility]; [facility] Work Phone: 10-25-2022 09:50-0400 Body mass index (BMI) [Ratio] 40.08 kg/m2 Meli Grijalva [facility]; [facility] Work Phone: 10-25-2022 09:50-0400 Body surface area Derived from formula 2.09 m2 [facility]; [facility] Work Phone: 10-25-2022 09:50-0400 Body temperature 97.6 [degF] [facility]; [facility] Work Phone: 10-25-2022 09:50-0400 Body weight 105.92 kg [facility]; [facility] Work Phone: 10-25-2022 09:50-0400 Diastolic blood pressure 82 mm[Hg] [facility]; [facility] Work Phone: Comment on above: Patient Position: Sitting; Cuff Location : Left Arm; Cuff Size: Standard 10-25-2022 09:50-0400 Heart rate 75 /min [facility]; [facility] Work Phone: Comment on above: Pattern: Regular 10-25-2022 09:50-0400 Respiratory rate 16 /min [facility]; [facility] Work Phone: Comment on above: Pattern: Unlabored 10-25-2022 09:50-0400 SaO2% (BldA) [Mass fraction] 98 % [facility]; [facility] Work Phone: Comment on above: Room air 10-25-2022 09:50-0400 Systolic blood pressure 122 mm[Hg] Meli Grijalva [facility]; [facility] Work Phone: Comment on above: Patient Position: Sitting; Cuff Location : Left Arm; Cuff Size: Standard 03-15-2022 12:59-0400 Body height 162.56 cm Shaye Moreno [facility]; [facility] Work Phone: 03-15-2022 12:59-0400 Body mass index (BMI) [Ratio] 40.08 kg/m2 Shaye Moreno [facility]; [facility] Work Phone: 03-15-2022 12:59-0400 Body surface area Derived from formula 2.09 m2 Shaye Moreno [facility]; [facility] Work Phone: 03-15-2022 12:59-0400 Body weight 105.92 kg Shaye Moreno [facility]; [facility] Work Phone: 03-15-2022 12:59-0400 Diastolic blood pressure 80 mm[Hg] Shaye Moreno [facility]; [facility] Work Phone: Comment on above: Patient Position: Sitting; Cuff Location : Left Arm; Cuff Size: Standard 03-15-2022 12:59-0400 Systolic blood pressure 124 mm[Hg] Shaye Moreno [facility]; [facility] Work Phone: Comment on above: Patient Position: Sitting; Cuff Location : Left Arm; Cuff Size: Standard 03-08-2022 08:22-0400 Body height 162.56 cm Shaye Moreno [facility]; [facility] Work Phone: Comment on above: no vs taken as this is phone encounter d ue to covid 03-08-2022 08:22-0400 Body mass index (BMI) [Ratio] 40.42 kg/m2 Shaye Moreno [facility]; [facility] Work Phone: Comment on above: no vs taken as this is phone encounter d ue to covid 03-08-2022 08:22-0400 Body surface area Derived from formula 2.1 m2 Shaye Moreno [facility]; [facility] Work Phone: Comment on above: no vs taken as this is phone encounter d ue to covid 03-08-2022 08:22-0400 Body weight 106.82 kg Shaye Moreno [facility]; [facility] Work Phone: Comment on above: no vs taken as this is phone encounter d ue to covid 02-22-2022 09:04-0400 Body height 162.56 cm Shaye Moreno [facility]; [facility] Work Phone: Comment on above: no vs taken as this is phone encounter d ue to covid 02-22-2022 09:04-0400 Body mass index (BMI) [Ratio] 40.42 kg/m2 Shaye Moreno [facility]; [facility] Work Phone: Comment on above: no vs taken as this is phone encounter d ue to covid 02-22-2022 09:04-0400 Body surface area Derived from formula 2.1 m2 Shaye Moreno [facility]; [facility] Work Phone: Comment on above: no vs taken as this is phone encounter d ue to covid 02-22-2022 09:04-0400 Body temperature 97.3 [degF] Shaye Moreno [facility]; [facility] Work Phone: Comment on above: Method: Temporal no vs taken as this is phone encounter due to covid 02-22-2022 09:040400 Body weight 106.82 kg Shaye Moreno [facility]; [facility] Work Phone: Comment on above: no vs taken as this is phone encounter d ue to covid 02-22-2022 09:04-0400 Diastolic blood pressure 80 mm[Hg] Shaye Moreno [facility]; [facility] Work Phone: Comment on above: Patient Position: Sitting; Cuff Location : Left Arm; Cuff Size: Standard no vs taken as this is phone encounter due to covid 02-22-2022 09:04-0400 Systolic blood pressure 121 mm[Hg] Shaye Moreno [facility]; [facility] Work Phone: Comment on above: Patient Position: Sitting; Cuff Location : Left Arm; Cuff Size: Standard no vs taken as this is phone encounter due to covid 02-05-2022 08:56-0400 Body height 162.56 cm Shaye Moreno CMA [facility]; [facility] Work Phone: 02-05-2022 08:56-0400 Body mass index (BMI) [Ratio] 40.77 kg/m2 Shaye Moreno [facility]; [facility] Work Phone: 02-05-2022 08:56-0400 Body surface area Derived from formula 2.1 m2 Shaye Moreno [employer] [facility]; [facility] Work Phone: 02-05-2022 08:56-0400 Body temperature 97.3 [degF] Shaye Moreno [facility]; [facility] Work Phone: Comment on above: Method: Infrared 02-05-2022 08:56-0400 Body weight 107.73 kg Shaye Moreno [facility]; [facility] Work Phone: 02-05-2022 08:56-0400 Diastolic blood pressure 82 mm[Hg] Shaye Moreno [facility]; [facility] Work Phone: Comment on above: Patient Position: Sitting; Cuff Location : Left Arm; Cuff Size: Standard 02-05-2022 08:56-0400 Heart rate 80 /min Shaye Moreno [facility]; [facility] Work Phone: Comment on above: Pattern: Regular 02-05-2022 08:56-0400 Respiratory rate 18 /min Shaye Moreno CMA [facility]; [facility] Work Phone: Comment on above: Pattern: Unlabored 02-05-2022 08:56-0400 SaO2% (BldA) [Mass fraction] 97 % Shaye Moreno [facility]; [facility] Work Phone: Comment on above: Room air 02-05-2022 08:56-0400 Systolic blood pressure 127 mm[Hg] Shaye Moreno [facility]; [facility] Work Phone: Comment on above: Patient Position: Sitting; Cuff Location : Left Arm; Cuff Size: Standard 01-24-2022 08:31-0400 Body height 162.56 cm Edwina Braden CLAY [facility]; [facility] Work Phone: 01-24-2022 08:31-0400 Body mass index (BMI) [Ratio] 41.62 kg/m2 Edwina Braden CLAY [facility]; [facility] Work Phone: 01-24-2022 08:31-0400 Body surface area Derived from formula 2.12 m2 Edwina Braden CLAY [facility]; [facility] Work Phone: 01-24-2022 08:31-0400 Body temperature 97.3 [degF] Edwina Braden CLAY [facility]; [facility] Work Phone: 01-24-2022 08:31-0400 Body weight 110 kg Edwina Braden CLAY [facility]; [facility] Work Phone: 01-24-2022 08:31-0400 Diastolic blood pressure 78 mm[Hg] Edwina Braden CLAY [facility]; [facility] Work Phone: Comment on above: Patient Position: Sitting; Cuff Location : Left Arm; Cuff Size: Standard 01-24-2022 08:31-0400 Heart rate 62 /min Edwina Braden [facility]; [facility] Work Phone: Comment on above: Pattern: Regular 01-24-2022 08:31-0400 Respiratory rate 16 /min Edwina Braden [employer] [facility]; [facility] Work Phone: Comment on above: Pattern: Unlabored 01-24-2022 08:31-0400 SaO2% (BldA) [Mass fraction] 99 % Edwinacésar Braden C[facility]; [facility] Work Phone: Comment on above: Room air 01-24-2022 08:31-0400 Systolic blood pressure 120 mm[Hg] Edwina Asiya CLAY [facility]; [facility] Work Phone: Comment on above: Patient Position: Sitting; Cuff Location : Left Arm; Cuff Size: Standard 10-24-2021 08:34-0400 Body height 162.56 cm Patricia Rosita DO Work Phone: [facility]; [facility] Work Phone: 10-24-2021 08:34-0400 Body mass index (BMI) [Ratio] 40.17 kg/m2 Patricia Rosita DO Work Phone: [facility]; [facility] Work Phone: 10-24-2021 08:34-0400 Body surface area Derived from formula 2.09 m2 Patricia Rosita DO Work Phone: [facility]; [facility] Work Phone: 10-24-2021 08:34-0400 Body temperature 97.1 [degF] Patricia Rosita DO Work Phone: [facility]; [facility] Work Phone: Comment on above: Method: Infrared 10-24-2021 08:34-0400 Body weight 106.14 kg Patricia Rosita DO Work Phone: [facility]; [facility] Work Phone: 10-24-2021 08:34-0400 Diastolic blood pressure 78 mm[Hg] Patricia Rosita DO Work Phone: [facility]; [facility] Work Phone: Comment on above: Patient Position: Sitting; Cuff Location : Left Arm; Cuff Size: Standard 10-24-2021 08:34-0400 Heart rate 99 /min Patricia Rosita DO Work Phone: [facility]; [facility] Work Phone: Comment on above: Pattern: Regular 10-24-2021 08:34-0400 Respiratory rate 16 /min Patricia Rosita DO Work Phone: [facility]; [facility] Work Phone: Comment on above: Pattern: Unlabored 10-24-2021 08:34-0400 SaO2% (BldA) [Mass fraction] 98 % Patricia Becker DO Work Phone: [facility]; [facility] Work Phone: Comment on above: Room air 10-24-2021 08:34-0400 Systolic blood pressure 125 mm[Hg] Patricia Becker DO Work Phone: [facility]; [facility] Work Phone: Comment on above: Patient Position: Sitting; Cuff Location : Left Arm; Cuff Size: Standard 10-19-2021 11:59-0400 Body temperature 97.8 [degF] Dr. Patricia Becker Work Phone: [facility] Work Phone: 10-19-2021 11:59-0400 Diastolic blood pressure 73 mm[Hg] Dr. Patricia Becker Work Phone: [facility] Work Phone: 10-19-2021 11:59-0400 Heart rate 70 /min Dr. Patricia Becker Work Phone: [facility] Work Phone: 10-19-2021 11:59-0400 Respiratory rate 16 /min Dr. Patricia Becker Work Phone: [facility] Work Phone: 10-19-2021 11:59-0400 SaO2% (BldA) [Mass fraction] 98 % Dr. Patricia Becker Work Phone: [facility] Work Phone: 10-19-2021 11:59-0400 Systolic blood pressure 122 mm[Hg] Dr. Patricia Becker Work Phone: [facility] Work Phone: 10-18-2021 15:51-0400 Body height 167.[address] Patricia Becker Work Phone: [facility] Work Phone: 10-18-2021 15:51-0400 Body weight 104.[address] Patricia Becker Work Phone: [facility] Work Phone: 10-18-2021 11:58-0400 Body mass index (BMI) [Ratio] 37.2 kg/m2 Dr. Patricia Becker Work Phone: [facility] Work Phone: 05-30-2021 11:54-0400 Body height 162.56 cm Edwina Braden [employer] [facility]; [facility] Work Phone: Comment on above: virtual, reported by pt 05-30-2021 11:54-0400 Body mass index (BMI) [Ratio] 39.65 kg/m2 Edwina Braden [employer] [facility]; [facility] Work Phone: Comment on above: virtual, reported by pt 05-30-2021 11:54-0400 Body surface area Derived from formula 2.08 m2 Edwina Braden LPN [facility]; [facility] Work Phone: Comment on above: virtual, reported by pt 05-30-2021 11:54-0400 Body weight 104.78 kg Edwina Braden [employer] [facility]; [facility] Work Phone: Comment on above: virtual, reported by pt 05-30-2021 11:54-0400 Diastolic blood pressure 81 mm[Hg] Edwina Braden LPN [facility]; [facility] Work Phone: Comment on above: Patient Position: Sitting; Cuff Location : Left Arm; Cuff Size: Standard virtual, reported by pt 05-30-2021 11:54-0400 Systolic blood pressure 125 mm[Hg] Edwina Braden LPN [facility]; [facility] Work Phone: Comment on above: Patient Position: Sitting; Cuff Location : Left Arm; Cuff Size: Standard virtual, reported by pt 04-25-2021 08:29-0400 Body height 162.56 cm Valarie Goodman [employer]PER[employer] [facility]; [facility] Work Phone: 04-25-2021 08:290400 Body mass index (BMI) [Ratio] 39.65 kg/m2 Valarie Waldemarrb [employer]PER[employer] [facility]; [facility] Work Phone: 04-25-2021 08:29-0400 Body surface area Derived from formula 2.08 m2 Valarie Goodman LPN [facility]; [facility] Work Phone: 04-25-2021 08:040 Body temperature 98.1 [degF] Valarie Rex BUCKLEYN [facility]; [facility] Work Phone: 04-25-2021 08:040 Body weight 104.78 kg Valarie Goodman LPN [facility]; [facility] Work Phone: 04-25-2021 08:290400 Diastolic blood pressure 82 mm[Hg] Valarie Goodman LPN [facility]; [facility] Work Phone: Comment on above: Patient Position: Sitting; Cuff Location : Left Arm; Cuff Size: Standard 04-25-2021 08:29-0400 Heart rate 71 /min Valarie Goodman LPN [facility]; [facility] Work Phone: Comment on above: Pattern: Regular 04-25-2021 08:29-0400 Respiratory rate 17 /min Valarie Goodman [employer] [facility]; [facility] Work Phone: Comment on above: Pattern: Unlabored 04-25-2021 08:29-0400 SaO2% (BldA) [Mass fraction] 98 % Valarie Rex BUCKLEYN [facility]; [facility] Work Phone: Comment on above: Room air 04-25-2021 08:29-0400 Systolic blood pressure 126 mm[Hg] Valarie Rex BUCKLEYN [facility]; [facility] Work Phone: Comment on above: Patient Position: Sitting; Cuff Location : Left Arm; Cuff Size: Standard 01-17-2021 08:05-0400 Body height 162.56 cm Elijah Anastacio [employer] SUPERVISOR [facility]; [facility] Work Phone: 01-17-2021 08:05-0400 Body mass index (BMI) [Ratio] 41.2 kg/m2 Elijah Chaves LPN [facility]; [facility] Work Phone: 01-17-2021 08:05-0400 Body surface area Derived from formula 2.11 m2 Elijah Chaves LPN [facility]; [facility] Work Phone: 01-17-2021 08:05-0400 Body temperature 97.1 [degF] Elijah Chaves LPN [facility]; [facility] Work Phone: Comment on above: Method: Infrared 01-17-2021 08:05-0400 Body weight 108.88 kg Elijah Chaves LPN [facility]; [facility] Work Phone: 01-17-2021 08:05-0400 Diastolic blood pressure 82 mm[Hg] Elijah Chaves LPN [facility]; [facility] Work Phone: Comment on above: Patient Position: Sitting; Cuff Location : Left Arm; Cuff Size: Standard 01-17-2021 08:05-0400 Heart rate 68 /min Elijah Chaves LPN [facility]; [facility] Work Phone: Comment on above: Pattern: Regular 01-17-2021 08:05-0400 Respiratory rate 16 /min Elijah Chaves LPN [facility]; [facility] Work Phone: Comment on above: Pattern: Unlabored 01-17-2021 08:05-0400 SaO2% (BldA) [Mass fraction] 98 % Elijah Chaves LPN [facility]; [facility] Work Phone: Comment on above: Room air 01-17-2021 08:05-0400 Systolic blood pressure 140 mm[Hg] Elijah Chaves LPN [facility]; [facility] Work Phone: Comment on above: Patient Position: Sitting; Cuff Location : Left Arm; Cuff Size: Standard 12-16-2020 09:04-0400 Body height 162.56 cm Elijah Chaves LPN [facility]; [facility] Work Phone: 12-16-2020 09:04-0400 Body mass index (BMI) [Ratio] 40.51 kg/m2 Elijah Chaves LPN [facility]; [facility] Work Phone: 12-16-2020 09:04-0400 Body surface area Derived from formula 2.1 m2 Elijah Chaves LPN [facility]; [facility] Work Phone: 12-16-2020 09:04-0400 Body temperature 97.1 [degF] Elijah Chaves LPN [facility]; [facility] Work Phone: Comment on above: Method: Infrared 12-16-2020 09:04-0400 Body weight 107.06 kg Elijah Chaves LPN [facility]; [facility] Work Phone: 12-16-2020 09:04-0400 Diastolic blood pressure 90 mm[Hg] Elijah Chaves LPN [facility]; [facility] Work Phone: Comment on above: Patient Position: Sitting; Cuff Location : Left Arm; Cuff Size: Standard 12-16-2020 09:04-0400 Heart rate 68 /min Elijah Chaves LPN [facility]; [facility] Work Phone: Comment on above: Pattern: Regular 12-16-2020 09:04-0400 Respiratory rate 16 /min Elijah Chaves LPN [facility]; [facility] Work Phone: Comment on above: Pattern: Unlabored 12-16-2020 09:04-0400 SaO2% (BldA) [Mass fraction] 97 % Elijah Chaves LPN [facility]; [facility] Work Phone: Comment on above: Room air 12-16-2020 09:04-0400 Systolic blood pressure 168 mm[Hg] Elijah Chaves LPN [facility]; [facility] Work Phone: Comment on above: Patient Position: Sitting; Cuff Location : Left Arm; Cuff Size: Standard 12-09-2020 14:26-0400 Body height 162.56 cm Elijah Chaves LPN [facility]; [facility] Work Phone: 12-09-2020 14:26-0400 Body mass index (BMI) [Ratio] 39.65 kg/m2 Elijah Chaves LPN [facility]; [facility] Work Phone: 12-09-2020 14:26-0400 Body surface area Derived from formula 2.08 m2 Elijah Cahves LPN [facility]; [facility] Work Phone: 12-09-2020 14:26-040 Body temperature 97.5 [degF] Elijah Chaves LPN [facility]; [facility] Work Phone: Comment on above: Method: Infrared 12-09-2020 14:26040 Body weight 104.78 kg Elijah Chaves LPN [facility]; [facility] Work Phone: 12-09-2020 14:26-0400 Diastolic blood pressure 100 mm[Hg] Elijah Chaves LPN [facility]; [facility] Work Phone: Comment on above: Patient Position: Sitting; Cuff Location : Left Arm; Cuff Size: Standard 12-09-2020 14:26-0400 Heart rate 91 /min Elijah Chaves LPN [facility]; [facility] Work Phone: Comment on above: Pattern: Regular 12-09-2020 14:26-0400 Respiratory rate 16 /min Elijah Chaves LPN [facility]; [facility] Work Phone: Comment on above: Pattern: Unlabored 12-09-2020 14:26-0400 SaO2% (BldA) [Mass fraction] 98 % Elijah Chaves LPN [facility]; [facility] Work Phone: Comment on above: Room air 12-09-2020 14:26-0400 Systolic blood pressure 180 mm[Hg] Elijah Chaves LPN [facility]; [facility] Work Phone: Comment on above: Patient Position: Sitting; Cuff Location : Left Arm; Cuff Size: Standard 10-01-2019 08:48-0500 BMI (Body Mass Index) 39.65 kg/m2 Shaye [facility]; [facility] Work Phone: 10-01-2019 08:48-0500 Body Temperature 96.7 [degF] Shaye Moreno CMA [facility]; [facility] Work Phone: Comment on above: Method: Temporal 10-01-2019 08:48-0500 Body weight 104.78 kg Shaye Moreno CMA [facility]; [facility] Work Phone: 10-01-2019 08:48-0500 BP Diastolic 90 mm[Hg] Shaye Moreno CMA [facility]; [facility] Work Phone: Comment on above: Patient Position: Sitting; Cuff Location : Left Arm; Cuff Size: Standard 10-01-2019 08:48-0500 BP Systolic 142 mm[Hg] Shaye Moreno CMA [facility]; [facility] Work Phone: Comment on above: Patient Position: Sitting; Cuff Location : Left Arm; Cuff Size: Standard 10-01-2019 08:48-0500 BSA (Body Surface Area) 2.08 m2 Shaye Moreno CMA [facility]; [facility] Work Phone: 10-01-2019 08:48-0500 Height 162.56 cm Shaye Moreno CMA [facility]; [facility] Work Phone: 10-01-2019 08:48-0500 Pulse (Heart Rate) 81 /min Shaye Moreno CMA [facility]; [facility] Work Phone: Comment on above: Pattern: Regular 10-01-2019 08:48-0500 Pulse Oximetry 96 % Patricia Becker [facility]; [facility] Work Phone: Comment on above: Room air 10-01-2019 08:48-0500 Respiratory Rate 18 /min Shaye Moreno CMA [facility]; [facility] Work Phone: Comment on above: Pattern: Unlabored 10-01-2019 08:48-0500 SaO2% (BldA) [Mass fraction] 96 % Shaye Moreno [employer] [facility]; [facility] Work Phone: Comment on above: Room air 08-31-2019 14:38-0500 BMI (Body Mass Index) 41.02 kg/m2 Shaye Moreno CMA [facility]; [facility] Work Phone: 08-31-2019 14:38-0500 Body Temperature 97.1 [degF] Shaye Moreno CMA [facility]; [facility] Work Phone: Comment on above: Method: Temporal 08-31-2019 14:38-0500 Body weight 108.41 kg Shaye Moreno CMA [facility]; [facility] Work Phone: 08-31-2019 14:38-0500 BP Diastolic 100 mm[Hg] Shaye Moreno CMA [facility]; [facility] Work Phone: Comment on above: Patient Position: Sitting; Cuff Location : Left Arm; Cuff Size: Standard 08-31-2019 14:38-0500 BP Systolic 140 mm[Hg] Shaye Moreno CMA [facility]; [facility] Work Phone: Comment on above: Patient Position: Sitting; Cuff Location : Left Arm; Cuff Size: Standard 08-31-2019 14:38-0500 BSA (Body Surface Area) 2.11 m2 Shaye Moreno CMA [facility]; [facility] Work Phone: 08-31-2019 14:38-0500 Height 162.56 cm Shaye Moreno CMA [facility]; [facility] Work Phone: 08-31-2019 14:38-0500 Pulse (Heart Rate) 75 /min Shaye Moreno CMA [facility]; [facility] Work Phone: Comment on above: Pattern: Regular 08-31-2019 14:38-0500 Pulse Oximetry 98 % Patricia Becker [facility]; [facility] Work Phone: Comment on above: Room air 08-31-2019 14:38-0500 Respiratory Rate 18 /min Shaye Moreno CMA [facility]; [facility] Work Phone: Comment on above: Pattern: Unlabored 08-31-2019 14:38-0500 SaO2% (BldA) [Mass fraction] 98 % Shaye Moreno CMA [facility]; [facility] Work Phone: Comment on above: Room air 07-27-2019 15:02-0500 BMI (Body Mass Index) 41.02 kg/m2 Edwina Asiya WILLIAMSON [facility]; [facility] Work Phone: 07-27-2019 15:02-0500 Body Temperature 97 [degF] Edwina Braden LPN [facility]; [facility] Work Phone: Comment on above: Method: Temporal 07-27-2019 15:02-0500 Body weight 108.41 kg Edwina Braden LPN [facility]; [facility] Work Phone: 07-27-2019 15:02-0500 BP Diastolic 80 mm[Hg] Edwina Braden LPN [facility]; [facility] Work Phone: Comment on above: Patient Position: Sitting; Cuff Location : Left Arm; Cuff Size: Standard 07-27-2019 15:02-0500 BP Systolic 142 mm[Hg] Edwina Braden LPN [facility]; [facility] Work Phone: Comment on above: Patient Position: Sitting; Cuff Location : Left Arm; Cuff Size: Standard 07-27-2019 15:02-0500 BSA (Body Surface Area) 2.11 m2 Edwina Braden LPN [facility]; [facility] Work Phone: 07-27-2019 15:02-0500 Height 162.56 cm Edwina Braden LPN [facility]; [facility] Work Phone: 07-27-2019 15:02-0500 Pulse (Heart Rate) 78 /min Edwina Braden LPN [facility]; [facility] Work Phone: Comment on above: Pattern: Regular 07-27-2019 15:02-0500 Pulse Oximetry 98 % Patricia Becker [facility]; [facility] Work Phone: Comment on above: Room air 07-27-2019 15:02-0500 Respiratory Rate 16 /min Edwina Braden LPN [facility]; [facility] Work Phone: Comment on above: Pattern: Unlabored 07-27-2019 15:02-0500 SaO2% (BldA) [Mass fraction] 98 % Edwina Brdaen LPN [facility]; [facility] Work Phone: Comment on above: Room air 12-01-2018 14:48-0400 BMI (Body Mass Index) 39.91 kg/m2 Senia Coe RN [facility] Work Phone: 12-01-2018 14:48-0400 Body weight 105.46 kg Senia Coe RN [facility] Work Phone: 12-01-2018 14:48-0400 BP Diastolic 110 mm[Hg] Senia Coe RN [facility] Work Phone: Comment on above: Patient Position: Sitting; Cuff Location : Left Arm; Cuff Size: Large 12-01-2018 14:48-0400 BP Systolic 138 mm[Hg] Senia Coe RN [facility] Work Phone: Comment on above: Patient Position: Sitting; Cuff Location : Left Arm; Cuff Size: Large 12-01-2018 14:48-0400 BSA (Body Surface Area) 2.09 m2 Senia Coe RN [facility] Work Phone: 12-01-2018 14:48-0400 Height 162.56 cm Senia Coe RN [facility] Work Phone: 12-01-2018 14:48-0400 Pulse (Heart Rate) 65 /min Senia Coe RN [facility] Work Phone: Comment on above: Pattern: Regular 12-01-2018 14:48-0400 Pulse Oximetry 98 % Patricia Becker [facility] Work Phone: Comment on above: Room air 12-01-2018 14:48-0400 Respiratory Rate 18 /min Senia Coe RN [facility] Work Phone: Comment on above: Pattern: Unlabored 12-01-2018 14:48-0400 SaO2% (BldA) [Mass fraction] 98 % Senia Coe RN [facility]; [facility] Work Phone: Comment on above: Room air 12-01-2018 14:48-0400 Weight 105.46 kg Patricia Becker [facility] Work Phone: 11-05-2018 14:21-0400 BMI (Body Mass Index) 39.69 kg/m2 Shaye Moreno CMA [facility] Work Phone: 11-05-2018 14:21-0400 Body Temperature 97.1 [degF] Shaye Moreno CMA [facility] Work Phone: Comment on above: Method: Temporal 11-05-2018 14:21-0400 Body weight 104.89 kg Shaye Moreno CMA [facility] Work Phone: 11-05-2018 14:21-0400 BP Diastolic 100 mm[Hg] Shaye Moreno CMA [facility] Work Phone: Comment on above: Patient Position: Sitting; Cuff Location : Left Arm; Cuff Size: Standard 11-05-2018 14:21-0400 BP Systolic 141 mm[Hg] Shaye Moreno CMA [facility] Work Phone: Comment on above: Patient Position: Sitting; Cuff Location : Left Arm; Cuff Size: Standard 11-05-2018 14:21-0400 BSA (Body Surface Area) 2.08 m2 Shaye Moreno CMA [facility] Work Phone: 11-05-2018 14:21-0400 Height 162.56 cm Shaye Moreno CMA [facility] Work Phone: 11-05-2018 14:21-0400 Pulse (Heart Rate) 62 /min Shaye Moreno CMA [facility] Work Phone: Comment on above: Pattern: Regular 11-05-2018 14:21-0400 Pulse Oximetry 98 % Patricia Becker [facility] Work Phone: Comment on above: Room air 11-05-2018 14:21-0400 Respiratory Rate 18 /min Shaye Moreno CMA [facility] Work Phone: Comment on above: Pattern: Unlabored 11-05-2018 14:21-0400 SaO2% (BldA) [Mass fraction] 98 % Shaye Moreno CMA [facility]; [facility] Work Phone: Comment on above: Room air 11-05-2018 14:21-0400 Weight 104.89 kg Patricia Becker [facility] Work Phone: 10-29-2018 09:28-0400 BMI (Body Mass Index) 39.52 kg/m2 Shaye Moreno CMA [facility] Work Phone: 10-29-2018 09:28-0400 Body Temperature 97.6 [degF] Shaye Moreno CMA [facility] Work Phone: Comment on above: Method: Temporal 10-29-2018 09:28-0400 Body weight 104.44 kg Shaye Moreno CMA [facility] Work Phone: 10-29-2018 09:28-0400 BP Diastolic 100 mm[Hg] Shaye Moreno CMA [facility] Work Phone: Comment on above: Patient Position: Sitting; Cuff Location : Left Arm; Cuff Size: Standard 10-29-2018 09:28-0400 BP Systolic 160 mm[Hg] Shaye Moreno [employer] [facility] Work Phone: Comment on above: Patient Position: Sitting; Cuff Location : Left Arm; Cuff Size: Standard 10-29-2018 09:28-0400 BSA (Body Surface Area) 2.08 m2 Shaye Moreno [employer] [facility] Work Phone: 10-29-2018 09:28-0400 Height 162.56 cm Shaye Moreno CMA [facility] Work Phone: 10-29-2018 09:28-0400 Pulse (Heart Rate) 82 /min Shaye Moreno CMA [facility] Work Phone: Comment on above: Pattern: Regular 10-29-2018 09:28-0400 Pulse Oximetry 98 % Patricia Becker [facility] Work Phone: Comment on above: Room air 10-29-2018 09:28-0400 Respiratory Rate 18 /min Shaye Moreno [employer] [facility] Work Phone: Comment on above: Pattern: Unlabored 10-29-2018 09:28-0400 SaO2% (BldA) [Mass fraction] 98 % Shaye Moreno [employer] [facility]; [facility] Work Phone: Comment on above: Room air 10-29-2018 09:28-0400 Weight 104.44 kg Patricia Rosita [facility] Work Phone: 10-08-2018 12:26-0400 BMI (Body Mass Index) 39.18 kg/m2 Senia Coe RN [facility] Work Phone: 10-08-2018 12:26-0400 Body Temperature 98.2 [degF] Senia Coe RN [facility] Work Phone: Comment on above: Method: Temporal 10-08-2018 12:26-0400 Body weight 103.53 kg Senia Coe RN [facility] Work Phone: 10-08-2018 12:26-0400 BP Diastolic 107 mm[Hg] Senia Coe RN [facility] Work Phone: Comment on above: Patient Position: Sitting; Cuff Location : Left Arm; Cuff Size: Standard 10-08-2018 12:26-0400 BP Systolic 158 mm[Hg] Senia Coe RN [facility] Work Phone: Comment on above: Patient Position: Sitting; Cuff Location : Left Arm; Cuff Size: Standard 10-08-2018 12:26-0400 BSA (Body Surface Area) 2.07 m2 Senia Coe RN [facility] Work Phone: 10-08-2018 12:26-0400 Height 162.56 cm Senia Coe RN [facility] Work Phone: 10-08-2018 12:26-0400 Pulse (Heart Rate) 76 /min Senia Coe RN [facility] Work Phone: Comment on above: Pattern: Regular 10-08-2018 12:26-0400 Pulse Oximetry 98 % Patricia Rosita [facility] Work Phone: Comment on above: Room air 10-08-2018 12:26-0400 Respiratory Rate 18 /min Senia Coe RN [facility] Work Phone: Comment on above: Pattern: Unlabored 10-08-2018 12:26-0400 SaO2% (BldA) [Mass fraction] 98 % Senia Coe RN [facility]; [facility] Work Phone: Comment on above: Room air 10-08-2018 12:26-0400 Weight 103.53 kg Patricia Becker [facility] Work Phone: 08-06-2017 13:33-0500 BMI (Body Mass Index) 40.25 kg/m2 Danielle Shah RN [facility] Work Phone: 08-06-2017 13:33-0500 Body Temperature 98.1 [degF] Danielle Shah RN [facility] Work Phone: Comment on above: Method: Temporal 08-06-2017 13:33-0500 Body weight 106.37 kg Danielle Shah RN [facility] Work Phone: 08-06-2017 13:33-0500 BP Diastolic 88 mm[Hg] Danielle Shah RN [facility] Work Phone: Comment on above: Patient Position: Sitting; Cuff Location : Left Arm; Cuff Size: Standard 08-06-2017 13:33-0500 BP Systolic 138 mm[Hg] Danielle Shah RN [facility] Work Phone: Comment on above: Patient Position: Sitting; Cuff Location : Left Arm; Cuff Size: Standard 08-06-2017 13:33-0500 BSA (Body Surface Area) 2.09 m2 Danielle Shah RN [facility] Work Phone: 08-06-2017 13:33-0500 Height 162.56 cm Danielle Shah RN [facility] Work Phone: 08-06-2017 13:33-0500 Pulse (Heart Rate) 71 /min Danielle Shah RN [facility] Work Phone: Comment on above: Pattern: Regular 08-06-2017 13:33-0500 Pulse Oximetry 96 % Patricia Becker [facility] Work Phone: Comment on above: Room air 08-06-2017 13:33-0500 Respiratory Rate 18 /min Danielle Shah RN [facility] Work Phone: Comment on above: Pattern: Unlabored 08-06-2017 13:33-0500 SaO2% (BldA) [Mass fraction] 96 % Danielle Shah RN [facility]; [facility] Work Phone: Comment on above: Room air 08-06-2017 13:33-0500 Weight 106.37 kg Patricia Becker [facility] Work Phone: 09-20-2016 07:48-0500 BMI (Body Mass Index) 40.25 kg/m2 Senia Coe RN [facility] Work Phone: 09-20-2016 07:48-0500 Body weight 106.37 kg Senia Coe RN [facility] Work Phone: 09-20-2016 07:48-0500 BP Diastolic 82 mm[Hg] Senia Coe RN [facility] Work Phone: Comment on above: Patient Position: Sitting; Cuff Location : Left Arm; Cuff Size: Large 09-20-2016 07:48-0500 BP Systolic 138 mm[Hg] Senia Coe RN [facility] Work Phone: Comment on above: Patient Position: Sitting; Cuff Location : Left Arm; Cuff Size: Large 09-20-2016 07:48-0500 BSA (Body Surface Area) 2.09 m2 Senia Coe RN [facility] Work Phone: 09-20-2016 07:48-0500 Height 162.56 cm Senia Coe RN [facility] Work Phone: 09-20-2016 07:48-0500 Pulse (Heart Rate) 98 /min Senia Coe RN Comprehens [facility] Work Phone: Comment on above: Pattern: Regular 09-20-2016 07:48-0500 Pulse Oximetry 97 % Patriciamyrna Gonzalezon [facility] Work Phone: Comment on above: Room air 09-20-2016 07:48-0500 Respiratory Rate 18 /min Senia Coe RN [facility] Work Phone: Comment on above: Pattern: Unlabored 09-20-2016 07:48-0500 SaO2% (BldA) [Mass fraction] 97 % Senia Coe RN [facility]; [facility] Work Phone: Comment on above: Room air 09-20-2016 07:48-0500 Weight 106.37 kg Patricia Becker [facility] Work Phone: 04-14-2015 06:59-0400 BMI (Body Mass Index) 36.22 kg/m2 JJ Lee LPN [facility] Work Phone: 04-14-2015 06:59-0400 Body Temperature 97.9 [degF] JJ Lee LPN [facility] Work Phone: Comment on above: Method: Temporal 04-14-2015 06:59-0400 Body weight 95.71 kg JJ Lee LPN [facility] Work Phone: 04-14-2015 06:59-0400 BP Diastolic 82 mm[Hg] JJ Lee LPN [facility] Work Phone: Comment on above: Patient Position: Sitting; Cuff Location : Left Arm; Cuff Size: Large 04-14-2015 06:59-0400 BP Systolic 124 mm[Hg] JJ Lee LPN [facility] Work Phone: Comment on above: Patient Position: Sitting; Cuff Location : Left Arm; Cuff Size: Large 04-14-2015 06:59-0400 BSA (Body Surface Area) 2 m2 JJ Lee LPN [facility] Work Phone: 04-14-2015 06:59-0400 Height 162.56 cm JJ Lee LPN [facility] Work Phone: 04-14-2015 06:59-0400 Pulse (Heart Rate) 72 /min JJ Lee LPN [facility] Work Phone: Comment on above: Pattern: Regular 04-14-2015 06:59-0400 Pulse Oximetry 98 % Patricia Becker [facility] Work Phone: Comment on above: Room air 04-14-2015 06:59-0400 Respiratory Rate 20 /min JJ Lee LPN [facility] Work Phone: Comment on above: Pattern: Unlabored 04-14-2015 06:59-0400 SaO2% (BldA) [Mass fraction] 98 % JJ Lee LPN [facility]; [facility] Work Phone: Comment on above: Room air 04-14-2015 06:59-0400 Weight 95.71 kg Patricia Becker [facility] Work Phone: 01-19-2015 11:45-0400 BMI (Body Mass Index) 36.22 kg/m2 Danielle Shah RN [facility] Work Phone: 01-19-2015 11:45-0400 Body Temperature 98.2 [degF] Danielle Shah RN [facility] Work Phone: Comment on above: Method: Temporal 01-19-2015 11:45-0400 Body weight 95.71 kg Danielle Shah RN [facility] Work Phone: 01-19-2015 11:45-0400 BP Diastolic 76 mm[Hg] Danielle Shah RN [facility] Work Phone: Comment on above: Patient Position: Sitting; Cuff Location : Left Arm; Cuff Size: Standard 01-19-2015 11:45-0400 BP Systolic 124 mm[Hg] Danielle Shah RN [facility] Work Phone: Comment on above: Patient Position: Sitting; Cuff Location : Left Arm; Cuff Size: Standard 01-19-2015 11:45-0400 BSA (Body Surface Area) 2 m2 Danielle Shah RN [facility] Work Phone: 01-19-2015 11:45-0400 Height 162.56 cm Danielle Shah RN [facility] Work Phone: 01-19-2015 11:45-0400 Pulse (Heart Rate) 72 /min Danielle Shah RN [facility] Work Phone: Comment on above: Pattern: Regular 01-19-2015 11:45-0400 Pulse Oximetry 98 % Patricia Becker [facility] Work Phone: Comment on above: Room air 01-19-2015 11:45-0400 Respiratory Rate 16 /min Danielle Shah RN [facility] Work Phone: Comment on above: Pattern: Unlabored 01-19-2015 11:45-0400 SaO2% (BldA) [Mass fraction] 98 % Danielle Shah RN [facility]; [facility] Work Phone: Comment on above: Room air 01-19-2015 11:45-0400 Weight 95.71 kg Patricia Becker [facility] Work Phone: 10-25-2014 11:10-0400 BMI (Body Mass Index) 36.22 kg/m2 Jocelin Mann [facility] Work Phone: 10-25-2014 11:10-0400 Body Temperature 100 [degF] Jocelin Mann [facility] Work Phone: Comment on above: Method: Tympanic 10-25-2014 11:10-0400 Body weight 95.71 kg Jocelin Mann [facility] Work Phone: 10-25-2014 11:10-0400 BP Diastolic 80 mm[Hg] [facility] Work Phone: Comment on above: Patient Position: Sitting; Cuff Location : Left Arm; Cuff Size: Standard 10-25-2014 11:10-0400 BP Systolic 148 mm[Hg] [facility] Work Phone: Comment on above: Patient Position: Sitting; Cuff Location : Left Arm; Cuff Size: Standard 10-25-2014 11:10-0400 BSA (Body Surface Area) 2 m2 Jocelin Mann [facility] Work Phone: 10-25-2014 11:10-0400 Height 162.56 cm Jocelin [facility] Work Phone: 10-25-2014 11:10-0400 Pulse (Heart Rate) 74 /min Jocelin Mann [facility] Work Phone: Comment on above: Pattern: Regular 10-25-2014 11:10-0400 Pulse Oximetry 98 % Patricia Becker [facility] Work Phone: Comment on above: Room air 10-25-2014 11:10-0400 Respiratory Rate 18 /min Jocelin Mann [facility] Work Phone: Comment on above: Pattern: Unlabored 10-25-2014 11:10-0400 SaO2% (BldA) [Mass fraction] 98 % Jocelintimmy Lealy [facility]; [facility] Work Phone: Comment on above: Room air 10-25-2014 11:10-0400 Weight 95.71 kg Patricia Becker [facility] Work Phone: 11-02-2013 10:37-0400 BMI (Body Mass Index) 36.22 kg/m2 Little Ronald WILLIAMSON [facility] Work Phone: 11-02-2013 10:37-0400 Body Temperature 97.8 [degF] Little Ronald WILLIAMSON [facility] Work Phone: Comment on above: Method: Oral 11-02-2013 10:37-0400 Body weight 95.71 kg Little Ronald WILLIAMSON [facility] Work Phone: 11-02-2013 10:37-0400 BP Diastolic 78 mm[Hg] Little Ronald WILLIAMSON [facility] Work Phone: Comment on above: Patient Position: Sitting; Cuff Location : Left Arm; Cuff Size: Standard 11-02-2013 10:37-0400 BP Systolic 136 mm[Hg] Little Ronald WILLIAMSON [facility] Work Phone: Comment on above: Patient Position: Sitting; Cuff Location : Left Arm; Cuff Size: Standard 11-02-2013 10:37-0400 BSA (Body Surface Area) 2 m2 Littlereji Cardenas LPN [facility] Work Phone: 11-02-2013 10:37-0400 Height 162.56 cm Little Cardenas LPN [facility] Work Phone: 11-02-2013 10:37-0400 Pulse (Heart Rate) 88 /min Little Cardenas LPN [facility] Work Phone: Comment on above: Pattern: Regular 11-02-2013 10:37-0400 Pulse Oximetry 98 % Patricia Becker [facility] Work Phone: Comment on above: Room air 11-02-2013 10:37-0400 Respiratory Rate 20 /min Little Cardenas LPN [facility] Work Phone: 11-02-2013 10:37-0400 SaO2% (BldA) [Mass fraction] 98 % Little Cardenas LPN [facility]; [facility] Work Phone: Comment on above: Room air 11-02-2013 10:37-0400 Weight 95.71 kg Patricia Becker [facility] Work Phone: 10-05-2013 11:08-0400 BMI (Body Mass Index) 35.66 kg/m2 Candice Jacobo [facility] Work Phone: 10-05-2013 11:08-0400 Body Temperature 97.8 [degF] Candice Jacobo [facility] Work Phone: Comment on above: Method: Oral 10-05-2013 11:08-0400 Body weight 95.71 kg Candice Jacobo [facility] Work Phone: 10-05-2013 11:08-0400 BP Diastolic 72 mm[Hg] Candice Jacobo [facility] Work Phone: Comment on above: Patient Position: Sitting; Cuff Location : Left Arm; Cuff Size: Standard 10-05-2013 11:08-0400 BP Systolic 130 mm[Hg] Candice Jacobo [facility] Work Phone: Comment on above: Patient Position: Sitting; Cuff Location : Left Arm; Cuff Size: Standard 10-05-2013 11:08-0400 BSA (Body Surface Area) 2.01 m2 Candice Jacobo [facility] Work Phone: 10-05-2013 11:08-0400 Height 163.83 cm Candice [facility] Work Phone: 10-05-2013 11:08-0400 Pulse (Heart Rate) 97 /min Candice [facility] Internal Medicine Work Phone: Comment on above: Pattern: Regular 10-05-2013 11:08-0400 Pulse Oximetry 98 % Patricia Becker [facility] Internal Medicine Work Phone: Comment on above: Room air 10-05-2013 11:08-0400 Respiratory Rate 16 /min Candice [facility] Internal Medicine Work Phone: Comment on above: Pattern: Unlabored 10-05-2013 11:08-0400 SaO2% (BldA) [Mass fraction] 98 % Candice [facility]; [facility] Work Phone: Comment on above: Room air 10-05-2013 11:08-0400 Weight 95.71 kg Patricia Becker [facility] Internal Medicine Work Phone: 09-29-2013 10:01-0500 BMI (Body Mass Index) 35.66 kg/m2 Danielle Shah RN [facility] Work Phone: 09-29-2013 10:01-0500 Body Temperature 97.6 [degF] Danielle Shah RN [facility] Work Phone: Comment on above: Method: Temporal 09-29-2013 10:01-0500 Body weight 95.71 kg Danielle Shah RN [facility] Work Phone: 09-29-2013 10:01-0500 BP Diastolic 70 mm[Hg] Danielle Shah RN [facility] Work Phone: Comment on above: Patient Position: Sitting; Cuff Location : Left Arm; Cuff Size: Standard 09-29-2013 10:01-0500 BP Systolic 126 mm[Hg] Danielle Shah RN [facility] Work Phone: Comment on above: Patient Position: Sitting; Cuff Location : Left Arm; Cuff Size: Standard 09-29-2013 10:01-0500 BSA (Body Surface Area) 2.01 m2 Danielle Shah RN [facility] Work Phone: 09-29-2013 10:01-0500 Height 163.83 cm Danielle Shah RN [facility] Work Phone: 09-29-2013 10:01-0500 Pulse (Heart Rate) 76 /min Danielle Shah RN [facility] Work Phone: Comment on above: Pattern: Regular 09-29-2013 10:01-0500 Pulse Oximetry 98 % Patricia Becker [facility] Work Phone: Comment on above: Room air 09-29-2013 10:01-0500 Respiratory Rate 16 /min Danielle Shah RN [facility] Work Phone: Comment on above: Pattern: Unlabored 09-29-2013 10:01-0500 SaO2% (BldA) [Mass fraction] 98 % Danielle Shah RN [facility]; [facility] Work Phone: Comment on above: Room air 09-29-2013 10:01-0500 Weight 95.71 kg Patricia Becker [facility] Work Phone: 09-01-2013 08:40-0500 BMI (Body Mass Index) 38.36 kg/m2 Jocelin Mann [facility] Work Phone: 09-01-2013 08:40-0500 Body Temperature 98.2 [degF] Jocelin Mann [facility] Work Phone: Comment on above: Method: Oral 09-01-2013 08:40-0500 Body weight 102.97 kg Jocelin Mann [facility] Work Phone: 09-01-2013 08:40-0500 BP Diastolic 102 mm[Hg] Jocelin Mann [facility] Internal Medicine Work Phone: Comment on above: Patient Position: Sitting; Cuff Location : Left Arm; Cuff Size: Standard 09-01-2013 08:40-0500 BP Systolic 148 mm[Hg] Jocelin Mann [facility] Internal Medicine Work Phone: Comment on above: Patient Position: Sitting; Cuff Location : Left Arm; Cuff Size: Standard 09-01-2013 08:40-0500 BSA (Body Surface Area) 2.08 m2 Jocelin Mann [facility] Internal Medicine Work Phone: 09-01-2013 08:40-0500 Height 163.83 cm Jocelin Mann [facility] Internal Medicine Work Phone: 09-01-2013 08:40-0500 Pulse (Heart Rate) 66 /min Jocelin Mann [facility] Internal Medicine Work Phone: Comment on above: Pattern: Regular 09-01-2013 08:40-0500 Pulse Oximetry 98 % Patricia Becker [facility] Internal Medicine Work Phone: Comment on above: Room air 09-01-2013 08:40-0500 Respiratory Rate 18 /min Jocelin Mann [facility] Internal Medicine Work Phone: Comment on above: Pattern: Unlabored 09-01-2013 08:40-0500 SaO2% (BldA) [Mass fraction] 98 % Jocelin Mann [facility] Internal Medicine; [facility] Work Phone: Comment on above: Room air 09-01-2013 08:40-0500 Weight 102.97 kg Patricia Becker [facility] Internal Medicine Work Phone: 07-06-2013 15:39-0500 BMI (Body Mass Index) 38.36 kg/m2 Little Cardenas LPN [facility] Work Phone: 07-06-2013 15:39-0500 Body Temperature 98.6 [degF] Little Cardenas LPN [facility] Work Phone: Comment on above: Method: Oral 07-06-2013 15:39-0500 Body weight 102.97 kg Little Cardenas LPN [facility] Work Phone: 07-06-2013 15:39-0500 BP Diastolic 84 mm[Hg] Little Cardenas LPN [facility] Work Phone: Comment on above: Patient Position: Sitting; Cuff Location : Left Arm; Cuff Size: Standard 07-06-2013 15:39-0500 BP Systolic 144 mm[Hg] Little Cardenas LPN [facility] Work Phone: Comment on above: Patient Position: Sitting; Cuff Location : Left Arm; Cuff Size: Standard 07-06-2013 15:39-0500 BSA (Body Surface Area) 2.08 m2 Little Cardenas LPN [facility] Work Phone: 07-06-2013 15:39-0500 Height 163.83 cm Little Cardenas LPN [facility] Work Phone: 07-06-2013 15:39-0500 Pulse (Heart Rate) 82 /min Little Cardenas LPN [facility] Work Phone: Comment on above: Pattern: Regular 07-06-2013 15:39-0500 Pulse Oximetry 98 % Patricia Becker [facility] Work Phone: Comment on above: Room air 07-06-2013 15:39-0500 Respiratory Rate 16 /min Little Cardenas LPN [facility] Work Phone: 07-06-2013 15:39-0500 SaO2% (BldA) [Mass fraction] 98 % Little Cardenas LPN [facility]; [facility] Work Phone: Comment on above: Room air 07-06-2013 15:39-0500 Weight 102.97 kg Patricia Becker [facility] Work Phone: 06-01-2013 16:19-0500 BMI (Body Mass Index) 38.36 kg/m2 Danielle Shah RN [facility] Work Phone: 06-01-2013 16:19-0500 Body Temperature 98.2 [degF] Danielle Shah RN [facility] Work Phone: Comment on above: Method: Temporal 06-01-2013 16:19-0500 Body weight 102.97 kg Danielle Shah RN [facility] Work Phone: 06-01-2013 16:19-0500 BP Diastolic 78 mm[Hg] Danielle Shah RN [facility] Work Phone: Comment on above: Patient Position: Sitting; Cuff Location : Left Arm; Cuff Size: Standard 06-01-2013 16:19-0500 BP Systolic 126 mm[Hg] Danielle Shah RN [facility] Work Phone: Comment on above: Patient Position: Sitting; Cuff Location : Left Arm; Cuff Size: Standard 06-01-2013 16:19-0500 BSA (Body Surface Area) 2.08 m2 Danielle Shah RN [facility] Work Phone: 06-01-2013 16:19-0500 Height 163.83 cm Danielle Shah RN [facility] Work Phone: 06-01-2013 16:19-0500 Pulse (Heart Rate) 60 /min Danielle Shah RN [facility] Work Phone: Comment on above: Pattern: Regular 06-01-2013 16:19-0500 Pulse Oximetry 97 % Patricia Becker [facility] Work Phone: Comment on above: Room air 06-01-2013 16:19-0500 Respiratory Rate 16 /min Danielle Shah RN [facility] Work Phone: Comment on above: Pattern: Unlabored 06-01-2013 16:19-0500 SaO2% (BldA) [Mass fraction] 97 % Danielle Shah RN [facility]; [facility] Work Phone: Comment on above: Room air 06-01-2013 16:19-0500 Weight 102.97 kg Patricia Rosita [facility] Work Phone: 05-18-2013 16:41-0400 BMI (Body Mass Index) 38.36 kg/m2 Little Cardenas LPN [facility] Work Phone: 05-18-2013 16:41-0400 Body Temperature 98.2 [degF] Little Cardenas LPN [facility] Work Phone: Comment on above: Method: Oral 05-18-2013 16:41-0400 Body weight 102.97 kg Little Cardenas LPN [facility] Work Phone: 05-18-2013 16:41-0400 BP Diastolic 80 mm[Hg] Little Cardenas LPN [facility] Work Phone: Comment on above: Patient Position: Sitting; Cuff Location : Left Arm; Cuff Size: Standard 05-18-2013 16:41-0400 BP Systolic 148 mm[Hg] Little Cardenas LPN [facility] Work Phone: Comment on above: Patient Position: Sitting; Cuff Location : Left Arm; Cuff Size: Standard 05-18-2013 16:41-0400 BSA (Body Surface Area) 2.08 m2 Little Cardenas CLAY [facility] Work Phone: 05-18-2013 16:41-0400 Height 163.83 cm Little Cardenas LPN [facility] Work Phone: 05-18-2013 16:41-0400 Pulse (Heart Rate) 88 /min Little Cardenas LPN [facility] Work Phone: Comment on above: Pattern: Regular 05-18-2013 16:41-0400 Pulse Oximetry 98 % Patricia Becker [facility] Internal Medicine Work Phone: Comment on above: Room air 05-18-2013 16:41-0400 SaO2% (BldA) [Mass fraction] 98 % Little Cardenas CLAY [facility]; [facility] Work Phone: Comment on above: Room air 05-18-2013 16:41-0400 Weight 102.97 kg Patricia Becker [facility] Work Phone: 06-23-2012 11:06-0500 BMI (Body Mass Index) 38.36 kg/m2 JJ Lee LPN [facility] Work Phone: 06-23-2012 11:06-0500 Body Temperature 97.4 [degF] JJ Lee LPN [facility] Work Phone: Comment on above: Method: Oral 06-23-2012 11:06-0500 Body weight 102.97 kg JJ Lee LPN [facility] Work Phone: 06-23-2012 11:06-0500 BP Diastolic 84 mm[Hg] JJ Lee LPN [facility] Work Phone: Comment on above: Patient Position: Sitting; Cuff Location : Left Arm; Cuff Size: Standard 06-23-2012 11:06-0500 BP Systolic 146 mm[Hg] JJ Lee LPN [facility] Work Phone: Comment on above: Patient Position: Sitting; Cuff Location : Left Arm; Cuff Size: Standard 06-23-2012 11:06-0500 BSA (Body Surface Area) 2.08 m2 JJ Lee LPN [facility] Work Phone: 06-23-2012 11:06-0500 Height 163.83 cm JJ Lee LPN [facility] Work Phone: 06-23-2012 11:06-0500 Pulse (Heart Rate) 74 /min JJ Lee LPN [facility] Work Phone: Comment on above: Pattern: Regular 06-23-2012 11:06-0500 Respiratory Rate 18 /min JJ Lee LPN [facility] Work Phone: Comment on above: Pattern: Unlabored 06-23-2012 11:06-0500 Weight 102.97 kg Patricia Becker [facility] Work Phone: 05-26-2012 08:15-0400 BMI (Body Mass Index) 38.36 kg/m2 JJ Lee LPN [facility] Work Phone: 05-26-2012 08:15-0400 Body Temperature 98 [degF] JJ Lee LPN [facility] Work Phone: Comment on above: Method: Oral 05-26-2012 08:15-0400 Body weight 102.97 kg JJ Lee CLAY [facility] Work Phone: 05-26-2012 08:15-0400 BP Diastolic 100 mm[Hg] JJ Lee CLAY [facility] Work Phone: Comment on above: Patient Position: Sitting; Cuff Location : Left Arm; Cuff Size: Large 05-26-2012 08:15-0400 BP Systolic 136 mm[Hg] JJ Lee CLAY [facility] Work Phone: Comment on above: Patient Position: Sitting; Cuff Location : Left Arm; Cuff Size: Large 05-26-2012 08:15-0400 BSA (Body Surface Area) 2.08 m2 JJ Jesus WILLIAMSON [facility] Internal Medicine Work Phone: 05-26-2012 08:15-0400 Height 163.83 cm JJ Jesus WILLIAMSON [facility] Work Phone: 05-26-2012 08:15-0400 Pulse (Heart Rate) 74 /min JJ Jesus WILLIAMSON [facility] Work Phone: Comment on above: Pattern: Regular 05-26-2012 08:15-0400 Respiratory Rate 20 /min JJ Jesus WILLIAMSON [facility] Work Phone: Comment on above: Pattern: Unlabored 05-26-2012 08:15-0400 Weight 102.97 kg Patricia Becker [facility] Internal Medicine Work Phone: Encounters Encounter Date Encounter Type Care Provider Facility Start: 03-16-2025 ambulatory Patricia Becker Facilit y:[facility] Start: 03-09-2025 ambulatory Patricia Becker Facilit y:[facility] Start: 03-09-2025 End: 03-09-[address] Patricia Becker DO Work Phone: -Ultrasound [facility] Start: 03-09-2025 End: 03-09-[address] Patricia Becker DO -Ultrasound [facility] Work Phone: Start: 03-03-2025 End: 03-03-[address] Patricia Rosita DO -Laboratory Work Phone: Start: 03-03-2025 End: 03-03-2025 ambulatory Patricia Becker Facility:[facility] Start: 12-31-2024 ambulatory Patricia Becker Facilit y:[facility] Start: 12-23-2024 End: 12-23-[address] Alireza Arellano MD -[facility] Start: 12-23-2024 End: 12-23-[address] Patricia Becker DO Work Phone: [facility] Work Phone: Start: 11-05-2024 End: 11-05-2024 Patient encounter procedure Cassie MAX -[facility] Work Phone: Start: 11-05-2024 End: 11-05-2024 ambulatory Patricia Becker Facility[place] Start: 04-01-2024 End: 04-01-2024 ambulatory Cassie MAX Facility:[facility] Start: 04-01-2024 End: 04-01-2024 ambulatory Cassie MAX Facility:[facility] Start: 10-07-2023 Non-patient / Non-visit Dr. Talon Becker Work Phone: [facility] Start: 10-04-2023 End: 10-04-[address] Patricia Becker Work Phone: [facility] Work Phone: Start: 10-04-2023 End: 10-04-[address] Patricia Becker Work Phone: [facility]-Cardiovascular Services Work Phone: Start: 08-27-2023 End: 08-28-2023 Emergency department patient visit Dr. Patricia Becker Work Phone: [facility]-Emergency Department Work Phone: Start: 08-15-[address] Cont[facility] Start: 08-15-2023 Non-patient / Non-visit Dr. Talon Becker Work Phone: [facility] Work Phone: Start: 08-14-2023 End: 08-14-2023 Emergency department patient [facility] Start: 08-09-2023 Non-patient / Non-visit Dr. Talon Becker Work Phone: [facility] Work Phone: Start: 08-08-2023 Non-patient / Non-visit Dr. Talon Becker Work Phone: [facility] Work Phone: Start: 08-08-2023 Non-patient / Non-visit Dr. Talon Becker Work Phone: [facility] Start: 08-07-2023 End: 08-09-2023 Evaluation and management of inpatient Dr. Patricia Becker Work Phone: [facility]-Progressive Care Unit Work Phone: Start: 08-07-2023 End: 08-09-[address] Patricia Becker Work Phone: [facility] Work Phone: Start: 07-15-2023 End: 07-15-[address] Patricia Becker Work Phone: [facility] Work Phone: Start: 07-15-2023 End: 07-15-[address] Patricia Becker Work Phone: [facility] Rad[facility] Start: 04-29-2023 End: 04-29-2023 Office outpatient visit 15 minutes Patricia Rosita DO Work Phone: [facility] Start: 04-29-2023 Review Patricia Fearo n DO Work Phone: [facility] Start: 04-12-2023 End: 04-14-2023 Office outpatient visit 25 minutes Patricia Rosita [...] DO Work Phone: [facility] Start: 02-07-2022 End: 02-07-[address] Patricia Becker Work Phone: [facility] Start: 02-05-2022 End: 02-05-2022 Office outpatient visit 10 minutes Patricia Rosita DO Work Phone: [facility] Start: 01-24-2022 End: 01-24-2022 Office outpatient visit 25 minutes Patricia Rosita DO Work Phone: [facility] Start: 01-24-2022 Review Patricia Gonzalezo n DO Work Phone: [facility] Start: 01-18-2022 End: 01-18-2022 Phone Encounter Patricia Rosita DO Work Phone: [facility] Start: 11-23-2021 End: 11-23-[address] Patricia Becker Work Phone: [facility] Start: 11-22-2021 End: 11-22-[address] Patricia Becker Work Phone: [facility] Start: 10-25-2021 End: 10-25-[address] Patricia Becker Work Phone: [facility] Start: 10-24-2021 End: 10-24-2021 Office outpatient visit 25 minutes Patricia Rosita DO Work Phone: [facility] Start: 10-19-2021 Non-patient / Non-visit Dr. Talon Becker Work Phone: [facility] Start: 10-18-2021 End: 10-19-2021 Evaluation and management of inpatient Dr. Patricia Becker Work Phone: [facility]-Progressive Care Unit Start: 05-30-2021 End: 05-30-2021 Office outpatient visit [...] 12-01-2018 Office outpatient visit 25 minutes Patricia Rosita [facility] Start: 11-05-2018 End: 11-05-2018 Office outpatient visit 15 minutes Patricia Rosita [facility] Start: 10-29-2018 End: 10-29-2018 Office outpatient visit 15 minutes Patricia Rosita [facility] Start: 10-08-2018 End: 10-08-2018 Office outpatient visit 40 minutes Patricia Rosita [facility] Start: 04-23-2018 End: 04-24-2018 Patient encounter Troy Ovalle Facility:[facility] Start: 04-23-2018 Patient encounter Facil [id number] Start: 04-16-2018 End: 04-17-2018 Patient encounter Troy Ovalle Facility:[facility] Start: 04-16-2018 End: 04-17-2018 Patient encounter Troy Ovalle Facility:[facility] Start: 04-16-2018 Patient encounter Facil [id number] Start: 08-06-2017 End: 08-06-2017 Office outpatient visit 15 minutes Patricia Becker [facility] Start: 05-24-2017 End: 05-24-2017 Office outpatient visit 5 minutes Patricia Becker [facility] Start: 09-20-2016 End: 09-20-2016 Office outpatient visit 15 minutes Patricia Becker [facility] Start: 06-08-2016 End: 06-08-2016 Phone Encounter Patricia Solomon [facility] Start: 04-18-2016 End: 04-18-2016 Office [...] 11-13-2013 End: 11-13-2013 Annotation/Addendum Patricia Becker [facility] Start: 11-11-2013 End: 11-11-2013 Annotation/Addendum Patricia Becker [facility] Start: 11-02-2013 End: 11-02-2013 Office outpatient visit 15 minutes Patricia Bceker [facility] Start: 10-05-2013 End: 10-05-2013 Office outpatient visit 15 minutes Patricia Becker [facility] Start: 09-29-2013 End: 09-29-2013 Patient encounter procedure Patricia Solomon [facility] Start: 09-01-2013 End: 09-01-2013 Patient encounter procedure Patricia Becker [facility] Start: 07-10-2013 End: 07-10-2013 Annotation/Addendum Patricia Becker [facility] Start: 07-06-2013 End: 07-06-2013 Office outpatient visit 10 minutes Patricia Becker [facility] Start: 06-01-2013 End: 06-01-2013 Office outpatient visit 10 minutes Patricia Becker [facility] Start: 05-18-2013 End: 05-18-2013 Annotation/Addendum Patricia Becker [facility] Start: 05-18-2013 End: 05-18-2013 Office outpatient visit 25 minutes Patricia Solomon [facility] Start: 06-23-2012 End: 06-23-2012 Patient encounter procedure Patricia Becker [facility] Start: 05-26-2012 End: 05-26-2012 Patient encounter procedure Patricia Solomon [facility] Procedures Date Procedure Procedure Detail Performing Clinician Start: 03-09-[address] Patricia Becker DO Work Phone: Start: 03-09-2025 US scan of thyroid Dr. Patricia Becker DO Work Phone: Start: 03-03-[address] Patricia Becker DO Work Phone: Start: 12-23-2024 X-ray of knee, four or more views Dr[address] Patricia Becker DO Work Phone: Start: 10-04-2023 Cardiovascular stress test using pharmacologic stress agent Dr. Patricia Becker Work Phone: Start: 08-27-2023 Plain chest X-ray Dr. Patricia Becker Work Phone: Start: 08-14-2023 Plain chest X-ray Dr. Patricia Becker Work Phone: Start: 08-14-2023 CT of head without contrast Dr. Patricia Becker Work Phone: Start: 08-08-2023 MRI of brain without contrast Dr. Patricia Becker Work Phone: Start: 08-07-2023 Plain chest X-ray Dr. Patricia Becker Work Phone: Start: 08-07-2023 CT of head without contrast Dr. Patricia Becker Work Phone: Start: 07-15-2023 X-ray of both feet Dr. Patricia Becker Work Phone: Start: 11-23-2021 End: 11-23-2021 Kidney and Bladder Comments: See Note; NOTES: [facility] Imaging Services [address] [place] [address] Kidney and Bladder MR#: [id number] Acct: [id number] Name: VERONICA COOK Rep #: [id number] : 1950 F 71 From: Ozzy Luz PCP: Dr. Patricia Becker, Status: REG CLI Study: Kidney and Bladder Date of Exam: 11/23/21 Exam# [id number] Ordering Dr: Nani Gonzales DO STUDY: RENAL [...] Nani Gonzales DO; Dr. Patricia Becker DO Pot Press Operator: Signed Patricia Becker DO Work Phone: Start: 11-23-[address] Patricia Becker Work Phone: Start: 10-18-2021 CT of head without contrast Dr. Patricia Becker Work Phone: Start: 05-22-2021 End: 05-22-2021 Breast Limited Unilateral Comments: See Note; NOTES: [facility] Imaging Services [address] [place] [id number] Breast Limited Unilateral MR#: [id number] Acct: [id number] Name: VERONICA COOK Rep #: [id number] : 1950 F 71 From: Bishnu neville MD PCP: Dr. Patricia Becker DO Status: REG CLI Study: Breast Limited Unilateral Date of Exam: Exam# [id number] Ordering Dr: Yola Hinds NP SELLING SPECIALIST-C STUDY: ULTRASOUND BREAST - RIGHT REASON FOR [...] CC: RAISSA Hinds; Dr. Patricia Becker DO Pot Press Operator: Signed Yola Hinds [facility] Work Phone: Start: 05-18-2021 End: 05-19-2021 Dexa Bone Density Study Comments: See Note; NOTES: [facility] Imaging Services [address] [place] [phone] Dexa Bone Density Study MR#: [id number] Acct: [id number] Name: VERONICA COOK Rep #: [id number] : 1950 F 71 From: Bishnu neville MD PCP: Dr. Patricia Becker DO Status: [facility] Study: Dexa Bone Density Study Date of Exam: 05/18/21 Exam# [id number] Ordering Dr: Yola Hinds NP STUDY: DUAL ENERGY X-RAY ABSORPTIOMETRY / DXA [...] 10:08 EDT , Service support , CC: SELLING SPECIALIST-Florencio Hinds; Dr. Patricia Becker DO Pot Press Operator: Signed Yola Hinds [employer] Work Phone: Start: 05-18-2021 End: 05-19-2021 SCRN MAMM (CAD)W/EARLINE BILAT Comments: See Note; NOTES: [facility] [place] Imaging Services [address] [place] [phone] SCRN MAMM (CAD)W/EARLINE BILAT MR#: [id number] Acct: [id number] Name: VERONICA COOK Rep #: [id number] : 1950 F 71 From: Bishnu neville MD PCP: Dr. Patricia Becker DO Status: REG CLI Study: SCRN MAMM (CAD)W/EARLINE BILAT Date of Exam: 04/29 08/18 Exam# [id number] Ordering Dr: Yola Hinds NP SELLING SPECIALIST-Florencio MAMMOGRAPHY - BILATERAL SCREENING REASON FOR EXAM: [...] delay biopsy of a clinically suspicious abnormality. [id number] Electronically Signed: Bishnu Almanzar MD at 15:06 EDT , Service support , CC: RAISSA Hinds; Dr. Patricia Becker DO Pot Press Operator: Signed Yola Hinds [facility] Work Phone: Start: 01-12-2021 End: 2021 Abdomen/Pelvis without Cont Comments: See Note; NOTES: [facility] [place] Imaging Services [address] [place] [id number] Abdomen/Pelvis without Cont MR#: [id number] Acct: [id number] Name: VERONICA COOK Rep #: [id number] : 1950 F 70 From: Bishnu neville MD PCP: Dr. Patricia Becker DO Status: REG CLI Study: Abdomen/Pelvis without Cont Date of Exam: 12/27 02/15 Exam# [id number] Ordering Dr: Rosaura Prather MD STUDY: CT [...] Rosaura Prather MD; Dr. Patricia Becker DO Pot Press Operator: Signed Patricia Becker DO Work Phone: Start: 05-05-2019 End: 05-05-2019 Operative Report Comments: See Note; NOTES: [facility] Medical Records Department [address] [place] [address] Operative Report 05/05/19 0856 MR#: [id number] Acct: [id number] Name: VERONICA COOK Rep #: [id number] : 1950 69 From: Rosaura Prather MD PCP: Patricia Becker DO Status: REG [facility] Y Location: [place] [address] Problem List (1) Migration of ureteral stent [...] 05-05-2019 Discharge Instruction Comments: See Note; NOTES: [facility] [place] Medical Records Department [address] [place] [address] Instructions for Home/Discharge Instructions 05/05/1959 MR#: [id number] Acct: [id number] Name: VERONICA COOK Rep #: [id number] : 1950 69 From: Rosaura Prather MD PCP: Patricia Becker DO Status: REG PAC Discharge Diet: No Restrictions Discharge Activity: Return [...] Abdomen Single View Comments: See Note; NOTES: [facility] [place] Imaging Services [address] [place] [address] Abdomen Single View MR#: [id number] Acct: [id number] Name: VERONICA COOK Rep #: [id number] : 1950 F 69 From: Alberto Mcintosh MD PCP: Patricia Becker DO Status: REG CLI Study: Abdomen Single View Date of Exam: 04/29/19 Exam# [id number] Ordering Dr: Rosaura Prather MD STUDY: X-RAY [...] CC: Rosaura Prather MD; Patricia Becker DO Pot Press Operator: Signed Patricia Becker Start: 04-21-2019 End: 04-21-2019 Operative Report Comments: See Note; NOTES: [facility] [place] Medical Records Department [address] [place] [address] Operative Report 04/21/19 1031 MR#: [id number] Acct: [id number] Name: VERONICA COOK Rep #: [id number] : 1950 69 From: Rosaura Prather MD PCP: Patricia Becker DO Status: REG SD Y Location: [place] [address] Problem List (1) Calculus of kidney with [...] injuries. Using the safety wire, a 7 Monegasque 24 cm double-J stent was inserted without [...] 04-21-2019 Discharge Instruction Comments: See Note; NOTES: [facility] [place] Medical Records Department [address] [place] [address] Instructions for Home/Discharge Instructions 04/21/19 1030 MR#: [id number] Acct: [id number] Name: VERONICA COOK Rep #: [id number] : 1950 69 From: Rosaura Prather MD PCP: Patricia Becker DO Status: REG [facility] Discharge Diet: No Restrictions Discharge Activity: May [...] Abdomen Single View Comments: See Note; NOTES: [facility] [place] Imaging Services [address] [place] [address] Abdomen Single View MR#: [id number] Acct: [id number] Name: VERONICA COOK Rep #: [id number] : 1950 F 69 From: Augusto Salazar MD PCP: Patricia Becker DO Status: REG CLI Study: Abdomen Single View Date of Exam: 04/13/19 Exam# [id number] Ordering Dr: Rosaura Prather MD STUDY: X-RAY [...] CC: Rosaura Prather MD; Patricia Becker DO Pot Press Operator: Signed Patricia Becker Start: 03-24-2019 End: 03-24-2019 Operative Report Comments: See Note; NOTES: [facility] [place] Medical Records Department [address] [place] [address] Operative Report 03/24/19 0751 MR#: [id number] Acct: [id number] Name: VERONICA COOK Rep #: [id number] : 1950 69 From: Rosaura Prather MD PCP: Patricia Becker DO Status: REG SDC Y Location: [place] [address] Problem List (1) Left renal stone Status: [...] Glidewire was inserted without difficulty. A 6 Monegasque 24 cm double-J stent was passed and had good positioning in the renal pelvis as well as the urinary bladder. There were no complications during the procedure. She was taken to the recovery room in good condition. Type of Anesthesia:: General Description of Procedure: The stone was well fragmented at the conclusion of 3000 shocks. A 6 Monegasque 24 cm double-J stent was used. Grafts/Implants Used: [id number] JJ stent - Complications none - Admit VTE Documentation VTE Present on Admission: Yes VTE Mechan Device Prophylaxis: SCD's VTE Pharm Prophylaxis ordered?: No Reason prophylaxis not ordered:: Treatment Not Indicated 03/24/19 1012 <Electronically signed by Rosaura Prather MD> Date Rosaura Prather MD CC: Rosaura Prather MD; Patricia Becker DO Signed Patricia Becker Start: 03-24-2019 End: 03-24-2019 Discharge Instruction Comments: See Note; NOTES: [facility] [place] Medical Records Department [address] [place] [address] Instructions for Home/Discharge Instructions 03/24/19752 MR#: [id number] Acct: [id number] Name: VERONICA COOK Rep #: [id number] : 1950 69 From: Rosaura Prather MD PCP: Patricia Becker DO Status: REG [facility] Discharge Diet: No Restrictions Discharge Activity: May [...] Abdomen Single View Comments: See Note; NOTES: [facility] [place] Imaging Services [address] [place] [address] Abdomen Single View MR#: [id number] Acct: [id number] Name: VERONICA COOK Rep #: [id number] : 1950 F 69 From: Trell Ramirez DO PCP: Patricia Becker DO Status: REG CLI Study: Abdomen Single View Date of Exam: 03/11/19 Exam# [id number] Ordering Dr: Rosaura Prather MD STUDY: X-RAY [...] Trell Ramirez DO at 18:04 EDT Tel [phone], Service support , CC: Rosaura Prather MD; Patricia Becker DO Pot Press Operator: Signed Patricia Becker Start: 11-04-2018 End: 11-04-2018 TXT - Blood Flow Screening Comments: See Note; NOTES: [facility] [place] Cardiovascular Services [address] [place] [address] 11/04/18 0950 MR#: [id number] Acct: [id number] Name: VERONICA COOK Rep #: [id number] : 1950 68 From: Paxton Zurita MD Attending Dr: Patricia Becker DO Status: REG REF Ordering Dr: Date: 11/04/18 Location: [facility] Sex: F C Admitted: Reason For Study: [...] DO Date Dictated: 11/04/18 0950 Date Transcribed: 11/04/181601 Pot Press Operator: Signed Patricia Becker Start: 09-30-2018 End: 09-30-2018 Emergency Department Summary Comments: See Note; NOTES: [facility] [place] Medical Records Department [address] [place] [address] Emergency Department Summary 09/30/181957 MR#: [id number] Acct: [id number] Name: VERONICA COOK Rep #: [id number] : 1950 68 From: Shannon Perdue MD [...] no illnesses no history of stroke seizure CA or PE hypertension is well controlled Physical [...] Intractable vertigo This note was generated with [employer] Interactive[employer] software. It may contain incorrect words, spelling, and punctuation that were not noted in review of the chart prior to signing ED Disposition - Plan for ED Patient: Referrals: Patricia Becker DO [Primary Care Provider] - What to do if you have Problems For any increased pain, shortness of breath, bleeding, nausea or vomiting, chest pain, or any unexpected problems, contact your Primary Care Provider. Call [facility] ([phone]) or report to the closest Emergency Room. Call 911 if necessary. 09/30/18 1752 <Electronically signed by Shannon Perdue MD> Date Shannon Perdue MD Cosigner Signature (If Indicated): Date CC: Patricia Lewis Start: 09-30-2018 End: 09-30-2018 Brain/Head without Contrast Comments: See Note; NOTES: [facility] [place] Imaging Services [address] [place] [address] Brain/Head without Contrast MR#: [id number] Acct: [id number] Name: VERONICA COOK Rep #: [id number] : 1950 F 68 From: Conor Grijalva MD PCP: Patricia Becker DO Status: REG ER Study: Brain/Head without Contrast Date of Exam: 09/30/18 Exam# [id number] Ordering Dr: Shannon Perdue MD STUDY: CT [...] No acute intracranial abnormality. Electronically Signed: Conor Beattyjessie, at 20:18 EST Tel , Service support , CC: MD Grisel Perdue; Patricia Becker DO Pot Press Operator: Signed Patricia Becker Start: 04-17-2016 End: 04-17-2016 Abdomen Single View Comments: See Note; NOTES: [facility] [place] Imaging Services [address] [place] [address] Verda 4d Abdomen Single View MR#: [id number] Acct: [id number] Name: VERONICA COOK Rep #: [id number] : 1950 F 66 From: Trell Ramirez DO PCP: Makayla Agustin MD Status: REG CLI Study: Abdomen Single View Date of Exam: 04/17/16 Exam# [id number] Ordering Dr: Julio Suarez MD STUDY: X-RAY [...] Trell Ramirez DO at 16:50 EDT Tel [phone], Service support [phone], CC: Makayla Agustin MD; Julio Suarez MD Pot Press Operator: Signed Patricia Becker Start: 04-15-2015 End: 04-15-2015 Abdomen/Pelvis without Cont Comments: See Note; NOTES: [facility] [place] Imaging Services [address] [place] [address] CAT Scan Report MR#: [id number] Acct: [id number] Name: VERONICA COOK Rep #: [id number] : 1950 F 65 From: Bishnu Almanzar MD PCP: Makayla Agustin MD Status: REG CLI Study: Abdomen/Pelvis without Cont Date of Exam: 04/15/15 Exam# [id number] Ordering Dr: Julio Suarez MD STUDY: CT [...] Bishnu Almanzar MD at 15:39 EDT Tel [phone], Service support [phone], CC: Makayla Agustin MD; Julio Suarez MD Pot Press Operator: Signed Patricia Becker Start: 04-14-2015 End: 04-14-2015 Spmtry w/vc expiratory mirta w/wo mxml vol vntj _ Makayla Agustin Work Phone: Comment on above: see scanned document of test done to see results reviewed today with patient Start: 05-21-2013 End: 05-22-2013 Abdomen/Pelvis without Cont Comments: See Note; NOTES: [facility] [place] Imaging Services [address] [place] [address] CAT Scan Report MR#: [id number] Acct: [id number] Name: VERONICA COOK Rep #: [id number] : 1950 F 63 From: Farhana Burton MD PCP: Status: REG CLI Study: Abdomen/Pelvis without Cont Date of Exam: 05/21/13 Exam# [id number] Ordering Dr: Yola Hinds STUDY: CT ABDOMEN AND PELVIS WITHOUT CONTRAST REASON FOR EXAM: Female, 63 years old. Hematuria x5 days with recent right-sided tinnitus. RADIATION DOSAGE (If Supplied By Facility): CTDIvol = ( 15.88 ) mGy, DLP = ( 867.31 ) mGycm TECHNIQUE: Transaxial images were obtained from the dome of the diaphragm to the symphysis pubis without oral contrast, and without intravenous contrast. This examination is limited for the evaluation of solid organs and vascular structures due to the lack of intravenous contrast. COMPARISON: None. FINDINGS: The visualized lung bases are unremarkable except for a 5 mm calcified granuloma on the right side. The visualized portions of the heart are within normal limits. Normal liver. There are surgical clips in the gallbladder fossa consistent with a prior cholecystectomy. There are multiple benign calcified granulomata of the spleen. Normal pancreas. Normal bilateral adrenal glands. There are three stones in the right intrarenal collection system measuring no greater than 5 mm each. There is a 1 cm stone in the right renal pelvis. 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 There is no stone in either ureter and there is no hydroureter. There is no obstructive uropathy on the left side. There is a 4.2 x 3.7 cm probable simple cyst emanating from the upper pole within the renal sinus. There is a 1.2 cm nonobstructing stone in the lower pole of the left kidney. There is no stone in the left ureter. There is a small hiatal hernia. Normal small intestine. Normal colon. There is non-visualization of the appendix. Normal abdominal aorta. Normal inferior vena cava. Normal retroperitoneum. Normal urinary bladder. Normal visualized uterus. Normal abdominal wall. There are diffuse degenerative changes of the visualized lumbar spine. IMPRESSION: No hydronephrosis. Bilateral nephrolithiasis. There is a 1 cm stone in the right renal pelvis, this may be causing intermittent obstruction. Evidence of prior granulomatous disease. Signed: Meghna Burton M.D. May 21, 2013 at 9:08:18 PM EDT Electronically Signed SN/SN If you are the referring physician and would like to consult with the radiologist who provided this interpretation, please contact Meghna Burton M.D. at . If this radiologist is unavailable, you will be directed to another radiologist to assist. If you are a patient with a question regarding this report, please contact your referring physician directly. Professional Interpretation Provided By: [employer], Phone , These documents contain legally protected and confidential health information intended only for the use of the individual or entity named above. If you are not the intended recipient, you are hereby notified that any disclosure, copying, distribution, or other use of these documents is strictly prohibited. If you have received this information in error, please notify the sender immediately and arrange for the return or destruction of these documents. CC: Yola Hinds Pot Press Operator: Signed Yola Hinds Work Phone: Cholecystectomy Danielle Shah Comment on above: 2008 Cholecystectomy Senia chandler Comment on above: 2008 Cholecystectomy Shaye Gravi us Comment on above: 2008 Cholecystectomy Senia chandler Comment on above: 2008 Cholecystectomy Shaye Gravi us Comment on above: 2008 Cholecystectomy Shaye Gravi us Comment on above: 2008 Cholecystectomy Elijah Chaves LPN Comment on above: 2008 Cholecystectomy Elijah Chaves LPN Comment on above: 2008 Cholecystectomy Elijah Chaves LPN Comment on above: 2008 Cholecystectomy Edwina Coffma n SYNTHETIC DEPARTMENT SUPERVISOR Comment on above: 2008 Cholecystectomy Edwina Coffma n SYNTHETIC DEPARTMENT SUPERVISOR Comment on above: [address] FIELD PIPE LINES SUPERVISOR Comment on above: 2008 Cholecystectomy Shaye Gravi us FIELD PIPE LINES SUPERVISOR Comment on above: 2008 Cholecystectomy Shaye Gravi us FIELD PIPE LINES SUPERVISOR Comment on above: 2008 Cholecystectomy Shaye Gravi us FIELD PIPE LINES SUPERVISOR Comment on above: 2008 Cholecystectomy Shaye Gravi us FIELD PIPE LINES SUPERVISOR Comment on above: [address] FIELD PIPE LINES SUPERVISOR Comment on above: 2008 Cholecystectomy Lino Moncho SYNTHETIC DEPARTMENT SUPERVISOR Comment on above: 2008 Cholecystectomy Lino Moncho SYNTHETIC DEPARTMENT SUPERVISOR Comment on above: 2008 Cholecystectomy Lino Moncho SYNTHETIC DEPARTMENT SUPERVISOR Comment on above: 2008 Cholecystectomy Lino [place] SYNTHETIC DEPARTMENT SUPERVISOR Comment on above: 2008 Plan of Treatment Date Care Activity Detail Author Start: 12-23-2024 Patient referral [facility] [email or web address] Work Phone: Start: 12-23-2024 X-ray of knee, four or more views Knee 4 or More Views [facility] Start: 12-23-2024 XR Knee GE 4 Views [facility] Start: 08-27-2023 [facility] Start: 08-27-2023 Troponin I measurement [facility] Start: 08-27-2023 [facility] Start: 08-14-2023 [facility] Start: 08-14-2023 Oxygen therapy [facility] Start: 08-14-2023 [facility] Start: 08-09-2023 Patient discharge [facility] Start: 08-08-2023 Telemedicine consultation with patient [facility] Start: 08-07-2023 Following clinical pathway protocol [facility] Start: 08-07-2023 Assessment of risk of venous thromboembolism [facility] Start: 08-07-2023 Cardiac monitoring [facility] Start: 08-07-2023 Catheterization of vein [facility] Start: 08-07-2023 Continuous pulse oximetry [facility] Start: 08-07-2023 Elevation of head of bed [facility] Start: 08-07-2023 Exercises [facility] Start: 08-07-2023 Implementation of planned interventions [facility] Start: 08-07-2023 Insertion of catheter into peripheral vein [facility] Start: 08-07-2023 Measuring intake and output [facility] Start: 08-07-2023 Notification of physician [facility] Start: 08-07-2023 Oxygen therapy [facility] Start: 08-07-2023 Providing care according to standard [facility] Start: 08-07-2023 Provision of activity privileges [facility] Start: 08-07-2023 Referral to occupational therapist [facility] Start: 08-07-2023 Referral to service [facility] Start: 08-07-2023 Speech therapy assessment [facility] Start: 08-07-2023 Tobacco use cessation education [facility] Start: 08-07-2023 [facility] Start: 08-07-2023 Vital signs measurements [facility] Start: 08-07-2023 Admission procedure [facility] Start: 08-07-2023 Hospital admission, emergency, from emergency room, medical nature [facility] Start: 08-07-2023 [facility] Start: 04-29-2023 Procedure Education Eprescribed prescriptions (G8553) [...] 02-25-2023 Cyanocobalamin vitamin b-12 VITAMIN B-12 (CYANOCOBALAMIN) (66563) [facility]; [facility] Work Phone: Start: 02-25-2023 Assay of thyroid stimulating hormone tsh TSH (THYROID STIMULATING HORMONE) (20370) [facility]; [facility] Work Phone: Start: 02-25-2023 25 hydroxy includes fractions if performed CALCIFEDIOL (94152) [facility]; [facility] Work Phone: Start: 02-25-2023 Urine albumin quantitative MICROALBUMIN: CREATININE RATIO (28980) AND (35283) [facility]; [facility] Work Phone: Start: 02-25-2023 Comprehensive metabolic panel METABOLIC PANEL, COMPREHENSIVE (86188) [facility]; [facility] Work Phone: Start: 02-25-2023 Lipid panel LIPID PANEL (40579) [facility]; [facility] Work Phone: Start: 02-25-2023 Blood count complete auto&auto difrntl wbc CBC with auto diff (04384) [facility]; [facility] Work Phone: Start: 02-25-2023 Gluc bld gluc mntr dev cleared fda spec home use Blood Glucose , Office (69213) [facility]; [facility] Work Phone: Start: 02-25-2023 Hemoglobin glycosylated a1c HgA1C , Office (21226) [facility]; [facility] Work [...] 01-24-2022 Cyanocobalamin vitamin b-12 VITAMIN B-12 (CYANOCOBALAMIN) (32756) [facility]; [facility] Work Phone: Start: 01-24-2022 25 hydroxy includes fractions if performed CALCIFIDIOL (01212) VIT D 25 [facility]; [facility] Work Phone: Start: 01-24-2022 Assay of thyroid stimulating hormone tsh TSH (73376) [facility]; [facility] Work Phone: Start: 01-24-2022 Urnls dip stick/tablet reagent auto microscopy URINALYSIS, W/ MICRO (20305) [facility]; [facility] Work Phone: Start: 01-24-2022 Urine albumin quantitative MICROALBUMIN: CREATININE RATIO (22256) AND (63607) [facility]; [facility] Work Phone: Start: 01-24-2022 Comprehensive metabolic panel METABOLIC PANEL, COMPREHENSIVE (83168) [facility]; [facility] Work Phone: Start: 01-24-2022 Lipid panel LIPID PANEL (68467) [facility]; [facility] Work Phone: Start: 01-24-2022 Blood count complete auto&auto difrntl wbc CBC W/AUTO DIFF WBC (69358) [facility]; [facility] Work Phone: Start: 10-24-2021 Procedure Education Eprescribed prescriptions (G8553) [facility]; [facility] Work Phone: Start: 10-24-2021 Provider Instructions for Treatment Follow up in 3 months with YUDY [facility]; [facility] Work Phone: Start: 10-24-2021 Blood occult fecal hgb deter ia qual feces 1-3 FECAL OCCULT- Tubes sent home (83934) [facility]; [facility] Work Phone: Start: 10-19-2021 Patient discharge [facility] Work Phone: Start: 10-18-2021 Assessment of risk of venous thromboembolism [facility] Work Phone: Start: 10-18-2021 Insertion of catheter into peripheral vein [facility] Work Phone: Start: 10-18-2021 Measuring intake and output [facility] Work Phone: Start: 10-18-2021 Providing care according to standard [facility] Work Phone: Start: 10-18-2021 Referral to occupational therapist [facility] Work Phone: Start: 10-18-2021 Referral to service [facility] Work Phone: Start: 10-18-2021 [facility] Work Phone: Start: 10-18-2021 Admission procedure [facility] Work Phone: Start: 10-18-2021 Patient referral to dietitian [facility] Work Phone: Start: 06-28-2021 Comprehensive metabolic panel Metabolic Panel, Comprehensive (15954) [facility]; [facility] Work [...] feces 1-3 FECAL OCCULT- Tubes sent home (38905) [facility]; [facility] Work Phone: Start: 04-19-2021 Cyanocobalamin vitamin b-12 VITAMIN B12 AND FOLATES (30090) [facility]; [facility] Work Phone: Start: 04-19-2021 Urine albumin quantitative MICROALBUMIN: CREATININE RATIO (46124) AND (20809) [facility]; [facility] Work Phone: Start: 04-19-2021 Comprehensive metabolic panel Metabolic Panel, Comprehensive (46587) [facility]; [facility] Work Phone: Start: 01-17-2021 Procedure Education Eprescribed prescriptions (G8553) [facility]; [facility] Work Phone: Start: 01-17-2021 Provider Instructions for Treatment [facility]; [facility] Work Phone: Start: 01-04-2021 Renal function panel RENAL FUNCTION PANEL (41747) [facility]; [facility] Work Phone: Comment on above: STAT Start: 01-04-2021 Potassium serum plasma/whole blood POTASSIUM SERUM (56007) [facility]; [facility] Work Phone: Comment on above: stat Start: 01-04-2021 Renal function panel RENAL FUNCTION PANEL (29172) [facility]; [facility] Work Phone: Start: 01-04-2021 Hemoglobin glycosylated a1c HGB A1C (30179) [facility]; [facility] Work Phone: Start: 01-03-2021 Hemoglobin glycosylated a1c HGB A1C (44210) [facility]; [facility] Work Phone: Start: 01-03-2021 Renal function panel RENAL FUNCTION PANEL (18625) [facility]; [facility] Work Phone: Start: 12-16-2020 Procedure Education Eprescribed prescriptions (G8553) [facility]; [facility] Work Phone: Start: 12-16-2020 Provider Instructions for Treatment [facility]; [facility] Work Phone: Start: 12-09-2020 Cyanocobalamin vitamin b-12 VITAMIN B12 AND FOLATES (38636) [facility]; [facility] Work Phone: Start: 12-09-2020 Lipid panel LIPID PANEL (21161) [facility]; [facility] Work Phone: Start: 12-09-2020 25 hydroxy includes fractions if performed CALCIFEDIOL (42975) [facility]; [facility] Work Phone: Start: 12-09-2020 Assay of thyroid stimulating hormone tsh TSH (21635) [facility]; [facility] Work Phone: Start: 12-09-2020 Blood count complete auto&auto difrntl wbc CBC, Platelets & Auto Diff (90151) [facility]; [facility] Work Phone: Start: 12-09-2020 Comprehensive metabolic panel Metabolic Panel, Comprehensive (88915) [facility]; [facility] Work Phone: Start: 12-09-2020 Procedure Education Eprescribed prescriptions (G8553) [facility]; [facility] Work Phone: Start: 12-09-2020 Provider Instructions for Treatment [facility]; [facility] Work Phone: Start: 10-01-2019 Procedure Education Eprescribed prescriptions (G8553) [facility]; [facility] Work Phone: Start: 10-01-2019 Provider Instructions for Treatment [facility]; [facility] Work Phone: Start: 08-31-2019 Procedure Education Eprescribed prescriptions (G8553) [facility]; [facility] Work Phone: Start: 08-31-2019 Provider Instructions for Treatment Follow up in 4 weeks- wt loss and bp ck - [facility]; [facility] Work Phone: Start: 07-27-2019 Procedure Education Eprescribed prescriptions (G8553) [facility]; [facility] Work Phone: Start: 07-27-2019 Provider Instructions for Treatment [facility]; [facility] Work Phone: Start: 12-01-2018 Provider Instructions for Treatment [facility] Work Phone: Start: 11-05-2018 Procedure Education Eprescribed prescriptions (G8553) [facility] Work Phone: Start: 11-05-2018 Provider Instructions for Treatment [facility] Work Phone: Start: 10-29-2018 Procedure Education Eprescribed prescriptions (G8553) [facility] Work Phone: Start: 10-29-2018 Provider Instructions for Treatment [facility] Work Phone: Start: 10-29-2018 Lipoprotein blood jorge numbers & subclasses NMR Profile (74932) [facility] Work Phone: Start: 10-29-2018 Urnls dip stick/tablet reagent auto microscopy URINALYSIS, W/ MICRO (50056) [facility] Work Phone: Start: 10-29-2018 Urine albumin quantitative MICROALBUMIN: CREATININE RATIO (87538) AND (67591) [facility] Work Phone: Start: 10-29-2018 Comprehensive metabolic panel METABOLIC PANEL, COMPREHENSIVE (81722) [facility] Work Phone: Start: 10-29-2018 Blood count complete auto&auto difrntl wbc CBC W/AUTO DIFF WBC (45583) [facility] Work Phone: Start: 10-08-2018 Provider Instructions for Treatment [facility] Work Phone: Start: 08-06-2017 Procedure Education Eprescribed prescriptions (G8553) [facility] Work Phone: Start: 08-06-2017 Provider Instructions for Treatment Follow up if no improvement or if symptoms worsen [facility] Work Phone: Start: 09-20-2016 Procedure Education Eprescribed prescriptions (G8553) [facility] Work Phone: Start: 09-20-2016 Provider Instructions for Treatment Follow up if no improvement or if symptoms worsen [facility] Work Phone: Start: 06-08-2016 Lipid panel Lipid Panel (23220) [facility] Work Phone: Start: 06-08-2016 25 hydroxy includes fractions if performed CALCIFEDIOL (10013) [facility] Work Phone: Start: 06-08-2016 Assay of thyroid stimulating hormone tsh TSH (77141) [facility]; [facility] Work Phone: Start: 06-08-2016 Thyrotropin Qn TSH (91527) [facility] Work Phone: Start: 06-08-2016 Urinalysis qual/semiquant except immunoassays URINALYSIS (43884) [facility] Work Phone: Start: 06-08-2016 Blood count manual cell count each CBC WITH MANUAL DIFF (07724) [facility] Work Phone: Start: 06-08-2016 Comprehensive metabolic panel Metabolic Panel, Comprehensive (67649) [facility] Work Phone: Start: 04-14-2015 Procedure Education Eprescribed prescriptions (G8553) [facility] Work Phone: Start: 01-19-2015 Procedure Education Eprescribed prescriptions (G8553) [facility] Work Phone: Start: 01-19-2015 Provider Instructions for Treatment Follow up if no improvement or if symptoms worsen [facility] Work Phone: Start: 10-25-2014 Provider Instructions for Treatment [facility] Work Phone: Start: 11-02-2013 Provider Instructions for Treatment [facility] Work Phone: Start: 10-05-2013 Patient Education Viral or Bacterial Conjunctivitis *: red eye [facility] Work Phone: Start: 10-05-2013 Provider Instructions for Treatment [facility] Work Phone: Start: 07-06-2013 Provider Instructions for Treatment Follow up if no improvement or if symptoms worsen [facility] Work Phone: Start: 06-01-2013 Provider Instructions for Treatment Follow up if no improvement or if symptoms worsen [facility] Work Phone: Start: 05-18-2013 Patient Education Water in diet, brief version [facility] Work Phone: Start: 05-18-2013 Provider Instructions for Treatment [facility] Work Phone: Start: 05-26-2012 Patient Education Depression: Its Symptoms and Treatment: clinical depression [facility] Work Phone: Cardiac event recording [facility] Patient referral [facility] Work Phone: [facility] Work [facility]: [facility] Work Phone: [facility] Work Phone: [facility] Work Phone: [facility] Work [facility] Work Phone[facility] Work Phone[facility] Work Phone: [facility] Work Phone: [facility] Work Phone: [facility] Work [facility] Work Phone: [facility] Work Phone: [facility] Work Phone: [facility] Work Phone[facility] Work Phone: [facility] Work Phone[facility] Work Phone: [facility] Work Phone: [facility] Work Phone: [facility] Work Phone[facility] Work Phone: [facility] Work Phone: [facility] Work Phone: Payers Date Payer Category Payer Self-pay [id number] 2021 Unknown [id number] 2018 Medicare 2017 Unknown [id number] 2014 Medicare [id number] 2014 Unknown [id number] 2008 Medicare [id number] 1950 Unknown [id number] 2.16.84 [id number] Medicare [id number] Unknown Unknown [id number] 2.16.8 [id number] Unknown [id number] 2.16.8 [id number] Unknown [id number] 2.16.8 [id number] Unknown [id number] 2.16.8 [id number] Unknown [id number] 2.16.8 [id number] Unknown [id number] 2.16.8 [id number] Unknown [id number] 2.16.8 [id number] Unknown [id number] 2.16.8 [id number] Unknown [id number] 2.16.8 [id number] Unknown [id number] 2.16.8 [id number] Social History Date Type Detail Facility Alcohol Use: Never smoker [facility] Work Phone: Caffeine Use [facility] Work Phone: Comment on above: 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 [facility] Work [facility]: Living Situation: Lives with spouse. [facility] Work Phone: Comment on above: Tobacco use: Never smoker. [facility] Work Phone: Alcohol Use: Alcohol Use: [facility] Work Phone: Exercise History: Exercise History: [facility] Work Phone: [facility] Work [facility]: Comment on above: Tobacco use: Tobacco use: [facility] Work Phone: Start: 10-18-2021 End: 08-27-2023 Tobacco smoking status NHIS Unknown if ever smoked [facility] Start: 12-12-2020 Rare [facility] Start: 10-01-2018 None [facility] Start: 12-12-2020 Homeless [facility] Start: 05-04-2019 Non-smoker [facility] Start: 1950 Sex Assigned At Female W [facility] Start: 12-22-2024 Tobacco smoking status NHIS Never smoked tobacco (finding) [facility] Medical Equipment Procedure Code Equipment Code Equipment Origin al Text Equipment Identifier Dates STENT,URETERAL PIGTAIL [id number] FDA Start: 03-24-2019 STENT,7X24 ACMI FDA Start: 04-21-2019 STENT,URETERAL PIGTAIL [id number] FDA Start: 03-24-2019 STENT,7X24 ACMI FDA Start: 04-21-2019 STENT,URETERAL PIGTAIL [id number] FDA Start: 03-24-2019 STENT,7X24 ACMI FDA Start: 04-21-2019 STENT,URETERAL PIGTAIL [id number] FDA Start: 03-24-2019 STENT,7X24 ACMI FDA Start: 04-21-2019 STENT,URETERAL PIGTAIL [id number] FDA Start: 03-24-2019 STENT,7X24 ACMI FDA Start: 04-21-2019 STENT,URETERAL PIGTAIL [id number] FDA Start: 03-24-2019 STENT,7X24 ACMI FDA Start: 04-21-2019 STENT,URETERAL PIGTAIL [id number] FDA Start: 03-24-2019 STENT,7X24 ACMI FDA Start: 04-21-2019 STENT,URETERAL PIGTAIL [id number] FDA Start: 03-24-2019 STENT,7X24 ACMI FDA Start: 04-21-2019 STENT,URETERAL PIGTAIL [id number] FDA Start: 03-24-2019 STENT,7X24 ACMI FDA Start: 04-21-2019 STENT,URETERAL PIGTAIL 6FRX24 FDA Start: 03-24-2019 STENT,7X24 ACMI FDA Start: 04-21-2019 STENT,URETERAL PIGTAIL 6FRX24 FDA Start: 03-24-2019 STENT,7X24 ACMI FDA Start: 04-21-2019 STENT,URETERAL PIGTAIL 6FRX24 FDA Start: 03-24-2019 STENT,7X24 ACMI FDA Start: 04-21-2019 STENT,URETERAL PIGTAIL 6FRX24 FDA Start: 03-24-2019 STENT,7X24 ACMI FDA Start: 04-21-2019 STENT,URETERAL PIGTAIL 6FRX24 FDA Start: 03-24-2019 STENT,7X24 ACMI FDA Start: 04-21-2019 STENT,URETERAL PIGTAIL 6FRX24 FDA Start: 03-24-2019 DEYANIRA,7X24 ACMI FDA Start: 04-21-2019 Goals Date Patient Goal Desired Activity /State Functional Status Date Assessment Result Facility 08-09-2023 Functional status Ambulates;Up a d irina [facility] Work Phone: 10-19-2021 Functional status Ambulates [facility] Work Phone: 10-19-2021 Functional status None [facility] Work Phone: 10-29-2018 LP-IR Score LP-IR Score 40 [facility] Work Phone: Comment on above: INSULIN RESISTANCE Tiffany GROVES <--Insulin Sensitive Insulin Resistant--> Percentile in Reference PopulationInsulin Resistance ScoreLP-IR Score Low 25th 50th 75th High <27 27 45 63 >63LP-IR Score is inaccurate if patient is non-fasting. .The LP-IR score is a laboratory developed index that has beenassociated with insulin resistance and diabetes risk and should beused as one component of a physician's clinical assessment. TheLP-IR score listed above has not been cleared by the [place] Food andDrug Administration. PATIENT WAS FASTINGP ERFORMED BY: [facility] [address] [id number] BY: [facility] [id number] [facility] [id number] Mental Status Date Assessment Result Facility 08-14-2023 Cognitive function Level Of Cons ciousness Awake;Alert;Appropriate;Follow s Commands [facility] Work Phone: 08-09-2023 Cognitive function Voice/Name [facility] Work Phone: 08-07-2023 Cognitive function Voice/Name [facility] Work Phone: 10-18-2021 Cognitive function Voice/Name [facility] Work Phone: Clinical Notes 08-07-2023 to 03-10-2025 Note Date & Type Note Facility 03-10-2025 Radiology Diagnostic study note [facility] Imaging Services [address] [place] [address] Thyroid MR#: [id number] Acct: [id number] Name: VERONICA COOK Rep #: [id number] : 1950 F 75 From: Lico Almanzar MD PCP: Dr. Patricia Becker DO Status: RE G CLI Study:Thyroid Date of Exam: 03/09/25 Exam# [id number] Ordering Dr: Srinivasan Becker DO PROCEDURE: THYROID 03/09/2025 REASON FOR EXAM: NODULE TECHNIQUE: THYROID COMPARISON: None FINDINGS: Right thyroid lobe size: 4.6 cm x 1.9 cm x 2 cm Left thyroid lobe size: 5.1 cm 2.7 cm x 2.6 cm Isthmus: 0.4 cm Background parenchymal echotexture is homogeneous. Nodules: . Lobe: Right, Location: Upper pole, Size: 0.6 cm x 0.5 cm x 0.4 cm, Stability: N/A Composition: Solid or almost completely solid (+2) Echogenicity: Hypoechoic (+2) Margin: Smooth (+0) Shape: Wider than tall (+0) Echogenic Foci: None (+0) TI-RADS: 4 . Lobe: Left, Location: Lower pole, Size: 3.6 cm by 2.6 cm x 2.7 cm, Stability: N/A Composition: Mixed cystic and solid (+1) Echogenicity: Hypoechoic (+2) Margin: Smooth (+0) Shape: Wider than tall (+0) Echogenic Foci: Punctate echogenic foci (microcalcs) (+3) TI-RADS: 4 US/Thyroid IMPRESSION: Complex dominant mass in the left lobe of the thyroid as described. Biopsy recommended. RECOMMENDATION: Based on most suspicious nodule. Nodule size = largest diameter Only evaluate nodule if =>5 mm. Growth > 20% in 2 dimensions = worsening. Follow up to 4 nodules. Recommend biopsy for no more than 2 nodules. Reading Location: [facility] CC: Dr. Patricia Becker DO ~ Pot Press Operator: Signed [facility] 03-10-2025 Radiology Diagnostic study note [facility] Imaging Services [address] [place] [address] Pelvic w/ Transvaginal MR#: [id number] Acct: [id number] Name: VERONICA COOK Rep #: [id number] : 1950 F 75 From: Lico Almanzar MD PCP: Dr. Patricia Becker DO Status: RE G CLI Study:Pelvic w/ Transvaginal Date of Exam: 03/09/25 Exam# [id number] Ordering Dr: Srinivasan Becker athleen DO PROCEDURE: PELVIC W/ TRANSVAGINAL REASON FOR EXAM: ABN VAGINAL BLEEDING TECHNIQUE: PELVIC W/ TRANSVAGINAL COMPARISON: None FINDINGS: Measurements: Uterus: 9.4 cm x 5.8 cm x 4.5 cm with a volume of 129.13 mL Endometrial Thickness: 13 mm. It is heterogeneous. Small amount of fluid is seen within it. Increased vascularity. Right Ovary: Not visualized. Left Ovary: Not visualized. TRANSABDOMINAL: Uterus: 1 cm x 1.1 cm x 0.6 cm fundal fibroid. Nabothian cyst. Endometrium: Heterogeneous thickening with vascularity and fluid of the endometrium measuring 13 mm. Clinical correlation recommended. Right ovary: Not visualized. Left ovary: Not visualized. Other: No large pelvic mass identified. Transvaginal sonography was performed to better visualize the endometrium. TRANSVAGINAL: Uterus: Fibroid uterus. Endometrium: Heterogeneously thickened endometrium as described. Clinical correlation recommended. Right ovary: Normal size and echotexture. Left ovary: Normal size and echotexture. Other adnexal findings: None. Cul-de-sac: No free intraperitoneal fluid identified. Tenderness: No tenderness US/Pelvic w/ Transvaginal IMPRESSION: Heterogeneously thickened endometrium measuring 13 mm. Clinical correlation recommended. Reading Location: [id number] CC: Dr. Patricia Becker, ~ Pot Press Operator: Signed [facility] 12-23-2024 Evaluation note Diagnosis Onset Date Resolution Generalized edema acute November 12:56pm Osteoarthritis of left knee acute December 23, 2024 12:56pm [facility] Work Phone: 1(783) 155-886604-10-2025 Evaluation note* Diagnosis Onset Date Resolution Status Admit Date Atrial fibrillation acute November 05, 2024 8:51am Essential hypertension acute Ap ril 2024 8:51am JESUS (obstructive sleep apnea) acute November 05, 2024 8:51am [facility] Work Phone: 1(671) 480-619104-10-2025 Evaluation note* Diagnosis Onset Date Resolution Status Admit Date Atrial fibrillation acute November 05, 2024 8:51am Essential hypertension acute Ap 2024 8:51am JESUS (obstructive sleep apnea) acute November 05, 2024 8:51am Osteoarthritis of left knee acute December 23, 2024 12:56pm [facility] Work Phone: 1(248) 771-196201-12-2024 Discharge summary Author Mike Taveras [facility] August 09, 2023 2:58pm Note Date/Time August 09, 2023 2 :54pm [facility] Medical Records Department [address] [place] [address] Instructions for Home/Discharge Instructions 08/09/23 1453 MR#: [id number] Acct: [id number] Name: VERONICA COOK Rep #:[id number] : 1950 73 From: Mike miranda DO PCP: Dr. Patricia Becker DO Status:AD M KIM Discharge Instructions Diet Discharge Diet: No restrictions Activity Discharge Activity: No Restrictions Follow Up Care Please Follow Up With: Patricia Becker DO When: As needed Test Results: Test results from this visit will be discussed in further detail at your follow- up appointment, if applicable. Pending Tests Upon Discharge: None Discharge Plan Admission Admit Date/Time: 08/07/23 19:52 Primary Reason for Your Visit: Strokelike symptoms Attending Provider: Mike Taveras Primary Care Provider: Patricia Becker Consulting Providers: Vandana Bishop; Brandon Hassan; Roney Chadwick; Shagufta Lee; Yancy Bond; Jennifer Bauer; Veena,Dmitriy; Juliann Damico; Delano Jansen; Troy Núñez;Petrona Rivera; Jensen Bass; Sharmin Acevedo; Don Hurst; Shivani Mcgowan; Barndon Bernstein; Shahzad Ocampo; Aung Altamirano; Claudia Gonzales; Yue Victor Discharge Orders/Prescriptions Prescriptions: New atorvastatin 80 mg Tablet 80 mg PO QHS 90 Days Qty: 90 3RF aspirin 81 mg Tablet,Chewable 81 mg PO BREAKFAST 90 Days Qty: 90 3RF Continued cyanocobalamin (vitamin B-12) [Vitamin B-12] 2,500 mcg tablet, sublingual 2,500 mcg PO MOWEFR losartan 25 mg tablet 25 mg PO DAILY hydrochlorothiazide 12.5 mg tablet 12.5 mg PO DAILY Discontinued hydrochlorothiazide 12.5 mg capsule 12.5 mg PO DAILY Other Ambulatory Orders: 14 Day Event Recorder Preventi (Urgent) Timeframe: 1 Day Facility: [facility] - Location: Cardiovascular Services Ordered By: Dr. Mike Taveras Referrals / Follow Up: Patricia Becker DO [Primary Care Provider] - Disposition Disposition (needs filled in before D/C Order can be placed): Home, Self Care 08/09/23 1167<Electronically signed by Mike Taveras DO>Mike Taveras DO CC: Yancy Bond; Roney Chadwick; Sharmin Acevedo; Brandon Meraz; Jennifer Bauer MD;Shagufta Lee MD; Brandon Hassan MD; Dr. Dmitriy Curiel MD; Dr. Juliann Damico MD; Dr. Troy Núñez MD; Dr. Delano Jansen MD; Dr. Patricia Becker DO; Dr. Jensen Bass DO; Dr. Shivani Mcgowan MD; Dr. Don Hurst MD; Dr. Vandana Bishop MD; Dr. Shahazd Ocampo MD; Dr. Aung Altamirano MD; Dr. Claudia Gonzales MD; Petrona Rivera DO; Yue Victor MD ~ Signed [facility] Work Phone: 1(553) 996-201201-12-2024 Progress note Author Mike Taveras [facility] August 08, 2023 11:52pm Note Date/Time August 08, 2023 7 :09pm [facility] Medical Records Department [address] [place] [address] Progress Note - Hospitalist 08/08/231907 MR#: [id number] Acct: [id number] Name: VERONICA COOK Rep #:[id number] : 1950 73 From: Mike miranda DO PCP: Dr. Patricia Becker, DO Status:AD M KIM Location: [place] [address] Reason for Visit Reason for Visit: Diagnoses Unspecified symptoms and signs involving the nervous system (08/07/23) Subjective Subjective Patient seen at bedside this morning, present. Sitting up comfortably in bed, conversing normally, no acute distress. Patient denies any speech difficulty, numbness/tingling or weakness this morning. States she had a brief episode of aphasia and decreased sensation around her chin for about 5 minutes prior to admission, no further symptoms since then. No other acute concerns this morning. Objective Data Objective Data Vital Signs: Vital Signs Temp Pulse Resp BP Pulse Ox O2 Del Method 98.2 F 87 18 136/92 H 99 Room Air 08/08/23 16:00 08/08/23 16:00 08/08/23 16:00 08/08/23 16:00 08/08/23 16:00 08/08/23 16:00 Oxygen Delivery Method Room Air Weight: 113 kg Body Mass Index (BMI) 41.4 Lab / Micro Data 08/08/23 04:55 08/08/23 04:55 Labs: Laboratory Results - last 24 hr 08/07/23 18:25: Hemoglobin A1c 5.5 08/08/23 04:55: WBC 6.5, RBC 3.57 L, Hgb 9.7 L, Hct 31.9 L, MCV 89.4, MCH 27.2, MCHC 30.4 L, RDW Std Deviation 44.7 H, RDW Coeff of Jaye 13.5, Plt Count 246, MPV10.4, Immature Gran % (Auto) 0.300, Neut % (Auto) 61.5, Lymph % (Auto) 28.5, Putnam % (Auto) 7.1, Eos % (Auto) 2.3, Baso % (Auto) 0.3, Absolute Neuts (auto) 4.0, Absolute Lymphs (auto) 1.84, Nucleated RBC % 0, Sodium 144, Potassium 4.3, Chloride 116 H, Carbon Dioxide 24.0, Anion Gap 4 L, BUN 42 H, Creatinine 1.59 H,Estim Creat Clear Calc 38.91, Est GFR (MDRD) Af Amer 41 L, Est GFR (MDRD) Non-Af34 L, BUN/Creatinine Ratio 26.4 H, Glucose 110 H, Calcium 8.7, Troponin I High Sens 15, Triglycerides 90, Cholesterol 148, LDL Cholesterol 82, VLDL [id number], HDL Cholesterol 48 08/08/23 06:00: Troponin I High Sens 15 08/08/23 10:40: Troponin I High Sens 15 Radiography Diagnostic Testing: Radiology Impression Brain CT 08/07/23 18:15 IMPRESSION: Normal Brain CT without contrast. Electronically Signed: Brenda Lee MD at 19:18 EST Reading Location ID and State: [employer] [facility] [employer] , Service support , ADDENDUM: 08/07/231928 IMPRESSION: Normal Brain CT without contrast. N.B. : The above Results were Read Back by Brenda Lee MD to Christopher Gao DO, and understanding confirmed on 08/07/2023 19:22:22 (ET). Electronically Signed: Brenda Lee MD at 19:18 EST Reading Location ID and State: [employer] / [employer] , Service support , Chest X-Ray 08/07/23 19:08 IMPRESSION: No acute cardiopulmonary disease. Electronically Signed: Brenda Lee MD at 19:24 EST Reading Location ID and State: [id number] / [employer] , Service support , Carotid Duplex 08/07/23 21:22 Interpretation Summary Normal right extracranial internal carotid. Normal left extracranial internal carotid. Patent and antegrade vertebrals bilaterally. Ordering Physician: Vandana Bishop Referring Physician: Patricia Becker M.D. Performed By: Margarita Nielsen RVT Echocardiogram 08/07/23 21:22 Interpretation Summary Normal LV size. Left ventricular systolic function is normal. The estimated ejection fraction is 55 %. Stage 1 diastolic dysfunction. The left atrium is mildly enlarged. Pulmonary artery systolic pressure is 32 mmHg. Ordering Physician: Vandana Bishop Referring Physician: Patricia Becker M.D. Performed By: Jose Enrique Sabillon RCS Brain MRI 08/08/23 09:00 IMPRESSION: Suspicious acute lacunar ischemic infarct in the right frontal lobe cortex (series 4, image 18). No other additional findings or changes when compared to 10/01/2018. Electronically Signed: Roberto Hernández MD at 15:18 EST , ADDENDUM: 08/08/23 1538 IMPRESSION: Suspicious acute lacunar ischemic infarct in the right frontal lobe cortex (series 4, image 18). No other additional findings or changes when compared to 10/01/2018. Electronically Signed: Roberto Hernández MD at 15:18 EST , Physical Exam Const alert, oriented x3 and no apparent distress Constitutional Narrative: Pleasant elderly female, obese, sitting comfortably in bed, conversing normally,no acute distress. General Appearance: cooperative and comfortable HEENT normocephalic, head/scalp atraumatic, hearing grossly normal bilaterally, nasal mucous membranes and turbinates normal and moist oral mucous membranes Eyes PERRL, EOMs intact bilaterally and conjunctivae normal Neck full ROM, no lymphadenopathy and supple Lymph Lymphatic: no lymphadenopathy noted Chest inspection of chest normal Resp normal respiratory effort, normal air movement, no use of accessory muscles and clear to auscultation bilaterally Cardio regular rate, regular rhythm, no murmurs and peripheral pulses 2+ throughout GI normal to inspection, nondistended, normoactive bowel sounds, soft to palpation,non-tender and non-distended Back/Spine normal ROM Extremity normal to inspection, full ROM and no pedal edema Skin no rashes or lesions noted Neuro moves all extremities, no focal motor deficits and no sensory deficits noted Speech: speech normal Psych mental status grossly normal Assessment & Plan Assessment/Plan (1) Acute CVA (cerebrovascular accident): PLAN: Plan Patient is a 73yo female who presented to [facility] ED on 08/07/2023 with strokelike symptoms. 1. Acute CVA Reported episode of aphasia and chin numbness/tingling for 5 minutes leading to this admission. CT brain nonacute, carotid ultrasound normal. Echo showed EF 55%, stage I diastolic dysfunction, mildly enlarged LA, no other abnormalities. MRI brain 08/08 showed suspicious acute lacunar infarct in right frontal lobe cortex. Telemetry showed sinus rhythm, no episodes of Afib through 08/08. - Neurology consulted. Suspect this may be an embolic stroke secondary to undiagnosed Afib, given echo findings and territory of stroke. If no Afib identified while inpatient, will likely need monitor on discharge. Okay for aspirin and statin for now. May need to discuss risks/benefits of anticoagulation if Afib thought by Neurology to be most likely etiology. PT/OT/VENDOR MANAGEMENT ASSOCIATE/CM following. 2. Hypertension - Holding home losartan and HCTZ, restart when able. DVT ppx: SCDs Code status: Full code, verified Expected disposition: Home, 1-2 days Total clinical time spent by myself addressing the patient's medical issues, reviewing all the data, and collaborating with patient's care team: 35 minutes. Charges/Coding Visit Charges Inpatient E&M: 80540 Subs Hosp L2 08/08/23 2352 <Electronically signed by Mike Taveras DO> Cosigner Signature (if applicable): CC: ~ Signed [facility] Work Phone: 1(574) 715-731101-11-2024 History and physical note Author Vandana Bishop [facility] August 08, 2023 2:17am Note Date/Time August 07, 2023 7 :34pm [facility] Medical Records Department [address] [place] [address] History & Physical Exam 08/07/231926 MR#: [id number] Acct: [id number] Name: VERONICA COOK Rep #:[id number] : 1950 73 From: Vandana Bishop MD PCP: Dr. Patricia Becker, DO Status:AD M [facility] Location: [place] [id number] HPI - General General Date of Admission: 08/07/23 Date of Service: 08/07/23 Chief Complaint: stroke like symptoms HPI Narrative VERONICA COOK, is a 73 F with a PMH as outlined who presents via the ED on 08/07/2023 with a complaint of stroke like symptoms. She had a brief episode of aphasia, and couldnt get her words out. She also had decreased sensation around her chin. Symptoms lasted about 5 minutes. She denied any headache, blurred vision, chest pain, palpitations dizziness, nausea, vomiting or any other symptoms. She denied any focal weakness. Review of systems was otherwise negative. Her last known well was around 5:15pm on the evening of admission. Vitals in the ED were BP of 149/85, KS of 75, RR of 14 and he was saturating at 99% on room air. CBC was largely unremarkable, and Chemistry showed sodium of 143, potassium of 3.9, Cr of 1.82 and initial troponin of 14. CXR showed no acute cardiopulmonary process and EKG showed no acute ST changes. CT of the brain showed no acute intracranial pathology. Her symptoms had resolved by the time she came to the ED. She is being admitted to be managed for TIA to rule outa stroke. [facility] Medical History Benign paroxysmal positional vertigo CKD (chronic kidney disease) stage 3, GFR 30-59 ml/min Essential hypertension Non-rheumatic mitral valve stenosis Premature ventricular contraction Pulmonary hypertension Vertigo Home Medications hydrochlorothiazide 12.5 mg tablet 12.5 mg PO DAILY BLOOD PRESSURE 01/25/21 [History Last Taken Unknown] cyanocobalamin (vitamin B-12) 2,500 mcg sublingual tablet (Vitamin B-12) 2,500 mcg PO MOWEFR SUPPLEMENT 10/18/21 [History Last Taken Unknown] losartan 25 mg tablet 25 mg PO DAILY BLOOD PRESSURE 10/18/21 [History Last Taken Unknown] hydrochlorothiazide 12.5 mg capsule 12.5 mg PO DAILY BLOOD PRESSURE 08/07/23 [History Last Taken Unknown] Allergy/AdvReac Type Severity Reaction Status Date / Time poison brandee extract Allergy Rash Verified 08/07/23 17:49 poison oak extract Allergy Rash Verified 08/07/23 17:49 Family History Mother Diabetes Hypertension Surgical History History of cholecystectomy (~2008) Social History (Updated 08/07/23 @ 21:38 by Roro Fisher) household members: spouse housing: other number of children: 2 pets and animals: No Smoking Status: Never smoker alcohol intake: current details: occasional substance use type: does not use caffeine: Yes Type: carbonated beverages ROS Constitutional Constitutional: Denies anorexia, chills, fatigue, fever(s), malaise or weakness Eyes Eyes: Denies change in vision ENT HEENT: Denies dysphagia Cardiovascular Cardiovascular: Denies chest pain, edema, orthopnea, palpitations or paroxysmal nocturnal dyspnea Respiratory/Chest Respiratory/Chest: Denies cough, shortness of breath at rest or shortness of breath with exertion Gastrointestinal Gastrointestinal: Denies abdominal pain, nausea or vomiting Genitourinary Genitourinary: Denies dysuria Musculoskeletal Musculoskeletal: Denies joint pain Neurologic Neurologic: Denies confusion, dizziness, focal weakness or headache(s) Vital Signs Vital Signs Vital Signs: 08/07/23 17:49 Temperature 97.8 F Temperature Source Oral Pulse Rate 90 Respiratory Rate 16 Blood Pressure 123/95 H Blood Pressure Mean 104 Pulse Ox 20 Oxygen Delivery Method Room Air Weight Weight: 250 lb 7.122 oz Body Mass Index (BMI) 40.2 Physical Exam Const alert, oriented x3, no apparent distress and well nourished General Appearance: cooperative and well developed HEENT normocephalic, head/scalp atraumatic and moist oral mucous membranes Eyes PERRL and EOMs intact bilaterally Neck no lymphadenopathy, supple and no JVD General: trachea midline Lymph Lymphatic: no lymphadenopathy noted and no lymphedema noted Resp normal respiratory effort, normal air movement and clear to auscultation bilaterally Cardio regular rate, regular rhythm, S1 normal heart sound, S2 normal heart sound and no murmurs GI normal to inspection, nondistended, normoactive bowel sounds, soft to palpation and non-tender Extremity normal capillary refill, no clubbing, cyanosis or edema and no calf tenderness General Extremity: no tenderness to palpation of joints or extremities Skin General Skin Exam: no breakdown Neuro CN's II-XII intact bilaterally, no focal motor deficits, no sensory deficits noted and deep tendon reflexes 2+ bilaterally Neuro Narrative: NIHSS is 0 at time of my review. Motor Exam: strength 5/5 throughout and general weakness Psych thought process normal, cooperative and affect normal Appearance: appropriate Results Lab / Micro Data 08/07/23 18:25 08/07/23 18:25 Labs: Laboratory Results - last 24 hr 08/07/23 18:25: WBC 7.7, RBC 4.25, Hgb 11.8 L, Hct 38.0, MCV 89.4, MCH 27.8, MCHC 31.1 L, RDW Std Deviation 45.1 H, RDW Coeff of Jaye 13.8, Plt Count 304, MPV11.0, Immature Gran % (Auto) 0.400, Neut % (Auto) 61.1, Lymph % (Auto) 28.8, Putnam % (Auto) 6.2, Eos % (Auto) 3.0, Baso % (Auto) 0.5, Absolute Neuts (auto) 4.7, Absolute Lymphs (auto) 2.22, Nucleated RBC % 0, PT 12.4, INR 0.9, APTT 26.8, Sodium 143, Potassium 3.9, Chloride 113 H, Carbon Dioxide 24.0, Anion Gap 6, BUN 43 H, Creatinine 1.82 H, Estim Creat Clear Calc 34.69, Est GFR (MDRD) Af Amer 35 L, Est GFR (MDRD) Non-Af 29 L, BUN/Creatinine Ratio 23.6 H, Glucose 119 H, Calcium 9.1, Troponin I High Sens 14 Imagaing Radiology Impression Brain CT 08/07/23 18:15 IMPRESSION: Normal Brain CT without contrast. Electronically Signed: Brenda Lee MD at 19:18 EST , Chest X-Ray 08/07/23 19:08 IMPRESSION: No acute cardiopulmonary disease. Electronically Signed: Brenda Lee MD at 19:24 EST , Assessment & Plan Assessment/Plan (1) Stroke-like symptoms: PLAN: Plan #Expressive aphasia to rule out a Stroke * Started having expressive aphasia today but this resolved after few minutes. * NIH stroke scale is 0. CT of the brain showed no acute intracranial pathology. * Admit to PCU under stroke protocol. Get MRI of the brain. * Get CT of the head and neck. * P.o. aspirin. Check lipid panel and A1c. * Get MRI of the brain tomorrow without contrast rule out a stroke. * PT OT consult. Fall precautions. If expressive aphasia recurs, to get speech therapy evaluation. * * #Hypertension: Hold hydrochlorothiazide and losartan to allow for permissive hypertension until stroke is ruled out. #CKD stage 4: * Creatinine is 1.82 with EGFR of 29. Will monitor. Will benefit from follow- up with nephrology on outpatient basis. DVT prophylaxis: Lovenox renally dosed CODE STATUS: * Patient counseled extensively about different types of CODE STATUS including full code, DNR CCA and DNR CCA. Patient elects to be full code. Total [id number] time 17 minutes. * Total time spent on evaluation and management of patient, reviewing chart and specialist notes, discussing plan with patient, discussion with nursing and ancillary staff as well as documentation: 48 mins Charges/Coding Visit Charges Inpatient E&M: 99750 Init Hosp L2 Procedures Hospitalists Procedures: 52047 Advncd Care Plan 30 Min 08/08/23 0217 <Electronically signed by Vandana Bishop MD> Cosigner Signature (if applicable): CC: Dr. Patricia Becker DO; Dr. Vandana Bishop MD~ Signed [facility] Work Phone: 1(125) 885-972401-10-2024 Discharge summary Author Christopher Gao [facility] August 07, 2023 7:52pm Note Date/Time August 07, 2023 7 :52pm [facility] Medical Records Department [address] [place] [address] Emergency Department Summary 08/07/23 MR#: [id number] Acct: [id number] Name: VERONICA COOK Rep #:[id number] : 1950 73 From: Christopher Saenz PCP: Dr. Patricia Becker DO Status:RE G ER Location: ED HPI History of Present Illness Chief Complaint: Neuro S/Sx [facility] Medical History (Updated 08/07/23 @ 19:[address] Vandana Bishop MD) Benign paroxysmal positional vertigo CKD (chronic kidney disease) stage 3, GFR 30-59 ml/min Essential hypertension Non-rheumatic mitral valve stenosis Premature ventricular contraction Pulmonary hypertension Vertigo Home Medications hydrochlorothiazide 12.5 mg tablet 12.5 mg PO DAILY BLOOD PRESSURE 01/25/21 [History Last Taken Unknown] cyanocobalamin (vitamin B-12) 2,500 mcg sublingual tablet (Vitamin B-12) 2,500 mcg PO MOWEFR SUPPLEMENT 10/18/21 [History Last Taken Unknown] losartan 25 mg tablet 25 mg PO DAILY BLOOD PRESSURE 10/18/21 [History Last Taken Unknown] meclizine 25 mg tablet 25 mg PO TID PRN DIZZINESS #30 tabs 10/19/21 [Rx Last Taken Unknown] colchicine 0.6 mg tablet 0.6 mg PO BID GOUT 08/07/23 [History Last Taken Unknown] Allergy/AdvReac Type Severity Reaction Status Date / Time poison brandee extract Allergy Rash Verified 08/07/23 17:49 poison oak extract Allergy Rash Verified 01/10/24 17:49 Family History (Updated 01/25/21 @ 09:24 by Cassie Barbosa) Mother Diabetes Hypertension Surgical History History of cholecystectomy (~2008) Social History (Updated 01/25/21 @ 09:25 by Cassie Barbosa) Smoking Status: Never smoker alcohol intake: current details: occasional substance use type: does not use caffeine: Yes Type: carbonated beverages EXAM Physical Exam Const Vital Signs: 08/07/23 17:49 08/07/23 19:32 Temperature 97.8 F Temperature Source Oral Pulse Rate 90 75 Respiratory Rate 16 14 Blood Pressure 123/95 H 149/85 H Blood Pressure Mean 104 106 Pulse Ox 20 99 Oxygen Delivery Method Room Air Room Air MDM MDM MDM Narrative Medical decision making narrative: HISTORY OF PRESENT ILLNESS: 73-year-old female presents with transient difficulty talking. Notes this occurred approximately 5 PM on 08/07/2023. Notes approximate 5 minutes of difficulty speaking. Denies any recent head trauma. Denies any chest pain palpitations. Denies history of stroke. Notes history of elevated blood pressure. REVIEW OF SYSTEMS: Pertinent positives: Difficulty speaking Pertinent negatives: Focal weakness, slurred speech, chest pain, palpitations PHYSICAL EXAM: Nursing triage notes reviewed, Vital signs reviewed Constitutional: please see mdm HENT: MMM Eyes: Pupils equal round and reactive to light, Extraocular muscles intact Neck: No stridor, no JVD, full neck ROM Lungs: Clear to auscultation, No wheezing or rales. No increased work of breathing, no conversational dyspnea, no accessory muscle use, no nasal flaring. No respiratory distress noted Heart: Regular rate and rhythm, No murmurs, No rubs and No gallops, 2+ distal pulses (radial, femoral, posterior tibial) in all extremities Abdomen: Soft, there is no tenderness, rigidity, rebound or guarding, no obviousperitoneal signs, no palpable pulsatile abdominal masses, no auscultated abdominal bruit : No CVAT Extremities: No edema Neuro: Alert and oriented x3, neuro exam at baseline, cranial nerves II through XII are intact. No pain with extraocular muscle movement. There is negative test of skew. 5 of 5 strength in upper and lower extremities in flexion extension. Intact sensation to light touch in upper and lower extremity dermatomes. No truncal or extremity ataxia. No dysdiadochokinesia. Normal gait. 2+ reflexes in upper and lower extremities. No meningeal signs. Negative Babinski. NIH of 0. Skin: No rash or lesions noted MEDICAL DECISION MAKING: Chief Complaint: Transient difficulty speaking External records reviewed: Imaging reviewed: CT scan of the brain from September 2021 shows no acute abnormality Factors affecting care: hypertension Social determinants of health: Denies drug use History obtained from others: Patient's Consults: Radiology, internal medicine (Dr. Bishop) MDM Narrative: The patient was hemodynamically stable, afebrile, nontoxic-appearing. Initial neuroexam was nonfocal. She had NIH of 0. She had a candidate for TNK or thrombectomy at this time given nonfocal neuroexam and NIH of 0 I considered the following differential diagnosis: TIA, CVA, focal seizure, ICH,arrhythmia I obtained a broad lab and imaging workup to further elucidate the etiology the patient complaint ALL IMAGES (IF OBTAINED) HAVE BEEN PERSONALLY REVIEWED AND INTERPRETED BY MYSELF. EKG with normal sinus rhythm, normal axis, normal intervals, no STEMI CT scan head was negative I have personally reviewed the patient's chest x-ray. Chest x-ray is unremarkable for pulmonary edema, pneumothorax, pneumonia or focal cardiopulmonary abnormality. CBC with no leukocytosis, anemia, no thrombocytopenia No coagulopathy BMP with CKD that is worsening from prior however no evidence ofacute kidney injury, no electrolyte abnormalities High-sensitivity troponin is negative, no evidence of myocardial ischemia The synthesis of the patient's history, physical exam, labs images suggest likely TIA. Will admit for risk factor modification, MRI and further evaluationand neurologic consultation. Discussed with hospitalist The patient and/or family, caregivers express understanding. The patient and/orfamily, caregivers agrees with the plan. Shared decision making: I will have a discussion with the patient and or visitors regarding risk/benefits of further testing or admission. They will be made aware of of the risk/benefits inherent in this decision they will be given the opportunity to voice understanding. Total critical care time today provided was at least 0 minutes. This excludes separately billable procedures. Critical care time (if documented) is secondary to the patient having high probability of clinically significant/life threatening deterioration in the patient's condition which required my urgent intervention. Impression: 1. Transient difficulty speaking 2. CKD 3. History of hypertension Dispo: Admit to PCU observation Lab Data Labs: Laboratory Results - last 24 hr 08/07/23 18:25 WBC 7.7 RBC 4.25 Hgb 11.8 L Hct 38.0 MCV 89.4 MCH 27.8 MCHC 31.1 L RDW Std Deviation 45.1 H RDW Coeff of Jaye 13.8 Plt Count 304 MPV 11.0 Immature Gran % (Auto) 0.400 Neut % (Auto) 61.1 Lymph % (Auto) 28.8 Putnam % (Auto) 6.2 Eos % (Auto) 3.0 Baso % (Auto) 0.5 Absolute Neuts (auto) 4.7 Absolute Lymphs (auto) 2.22 Nucleated RBC % 0 PT 12.4 INR 0.9 APTT 26.8 Sodium 143 Potassium 3.9 Chloride 113 H Carbon Dioxide 24.0 Anion Gap 6 BUN 43 H Creatinine 1.82 H Estim Creat Clear Calc 34.69 Est GFR (MDRD) Af Amer 35 L Est GFR (MDRD) Non-Af 29 L BUN/Creatinine Ratio 23.6 H Glucose 119 H Calcium 9.1 Troponin I High Sens 14 Radiography Diagnostic Testing: Clinical Impression(s) from Imaging Studies Brain CT 08/07/23 18:15 IMPRESSION: Normal Brain CT without contrast. Electronically Signed: Brenda Lee MD at 19:18 EST , ADDENDUM: 08/07/231928 IMPRESSION: Normal Brain CT without contrast. N.B. : The above Results were Read Back by Brenda Lee MD to Christopher Gao DO, and understanding confirmed on 08/07/2023 19:22:22 (ET). Electronically Signed: Brenda Lee MD at 19:18 EST , Chest X-Ray 08/07/23 19:08 IMPRESSION: No acute cardiopulmonary disease. Electronically Signed: Brenda Lee MD at 19:24 EST , Discharge Plan Triage Chief Complaint: Neuro S/Sx ED Provider: Christopher Gao Dx/Rx/DC Orders Prescriptions: No Action cyanocobalamin (vitamin B-12) [Vitamin B-12] 2,500 mcg tablet, sublingual 2,500 mcg PO MOWEFR losartan 25 mg tablet 25 mg PO DAILY meclizine 25 mg tablet 25 mg PO TID PRN (Reason: DIZZINESS ) Qty: 30 2RF colchicine 0.6 mg tablet 0.6 mg PO BID hydrochlorothiazide 12.5 mg tablet 12.5 mg PO DAILY Primary Care Provider: Patricia Becker Referrals: Patricia Becker, [Primary Care Provider] - What to do if you have Problems For any increased pain, shortness of breath, bleeding, nausea or vomiting, chestpain, or any unexpected problems, contact your Primary Care Provider. Call [facility] ([phone]) or report to the closest Emergency Room. Call 911 if necessary. 08/07/231951 <Electronically signed by Christopher Gao DO> Cosigner Signature (if applicable): CC: Dr. Patricia Becker DO ~ Signed [facility] Work Phone: 1(444) 178-912901-10-2024 Discharge summary Author Christopher Gao [facility] August 07, 2023 7:52pm Note Date/Time August 07, 2023 7 :52pm [facility] Medical Records Department [address] [place] [id number] Emergency Department Summary 08/07/23 MR#: [id number] Acct: [id number] Name: VERONICA COOK Rep #:[id number] : 1950 73 From: Christopher Saenz PCP: Dr. Patricia Becker DO Status:RE G ER Location: ED HPI History of Present Illness Chief Complaint: Neuro S/Sx [facility] Medical History (Updated 08/07/23 @ 19:[address] Vandana Bishop MD) Benign paroxysmal positional vertigo CKD (chronic kidney disease) stage 3, GFR 30-59 ml/min Essential hypertension Non-rheumatic mitral valve stenosis Premature ventricular contraction Pulmonary hypertension Vertigo Home Medications hydrochlorothiazide 12.5 mg tablet 12.5 mg PO DAILY BLOOD PRESSURE 01/25/21 [History Last Taken Unknown] cyanocobalamin (vitamin B-12) 2,500 mcg sublingual tablet (Vitamin B-12) 2,500 mcg PO MOWEFR SUPPLEMENT 10/18/21 [History Last Taken Unknown] losartan 25 mg tablet 25 mg PO DAILY BLOOD PRESSURE 10/18/21 [History Last Taken Unknown] meclizine 25 mg tablet 25 mg PO TID PRN DIZZINESS #30 tabs 10/19/21 [Rx Last Taken Unknown] colchicine 0.6 mg tablet 0.6 mg PO BID GOUT 08/07/23 [History Last Taken Unknown] Allergy/AdvReac Type Severity Reaction Status Date / Time poison brandee extract Allergy Rash Verified 08/07/23 17:49 poison oak extract Allergy Rash Verified 08/07/23 17:49 Family History (Updated 01/25/21 @ 09:24 by Cassie Barbosa) Mother Diabetes Hypertension Surgical History History of cholecystectomy (~2008) Social History (Updated 01/25/21 @ 09:25 by Cassie Barbosa) Smoking Status: Never smoker alcohol intake: current details: occasional substance use type: does not use caffeine: Yes Type: carbonated beverages EXAM Physical Exam Const Vital Signs: 08/07/23 17:49 08/07/23 19:32 Temperature 97.8 F Temperature Source Oral Pulse Rate 90 75 Respiratory Rate 16 14 Blood Pressure 123/95 H 149/85 H Blood Pressure Mean 104 106 Pulse Ox 20 99 Oxygen Delivery Method Room Air Room Air [facility] MDM Narrative Medical decision making narrative: HISTORY OF PRESENT ILLNESS: 73-year-old female presents with transient difficulty talking. Notes this occurred approximately 5 PM on 08/07/2023. Notes approximate 5 minutes of difficulty speaking. Denies any recent head trauma. Denies any chest pain palpitations. Denies history of stroke. Notes history of elevated blood pressure. REVIEW OF SYSTEMS: Pertinent positives: Difficulty speaking Pertinent negatives: Focal weakness, slurred speech, chest pain, palpitations PHYSICAL EXAM: Nursing triage notes reviewed, Vital signs reviewed Constitutional: please see mdm HENT: MMM Eyes: Pupils equal round and reactive to light, Extraocular muscles intact Neck: No stridor, no JVD, full neck ROM Lungs: Clear to auscultation, No wheezing or rales. No increased work of breathing, no conversational dyspnea, no accessory muscle use, no nasal flaring. No respiratory distress noted Heart: Regular rate and rhythm, No murmurs, No rubs and No gallops, 2+ distal pulses (radial, femoral, posterior tibial) in all extremities Abdomen: Soft, there is no tenderness, rigidity, rebound or guarding, no obviousperitoneal signs, no palpable pulsatile abdominal masses, no auscultated abdominal bruit : No CVAT Extremities: No edema Neuro: Alert and oriented x3, neuro exam at baseline, cranial nerves II through XII are intact. No pain with extraocular muscle movement. There is negative test of skew. 5 of 5 strength in upper and lower extremities in flexion extension. Intact sensation to light touch in upper and lower extremity dermatomes. No truncal or extremity ataxia. No dysdiadochokinesia. Normal gait. 2+ reflexes in upper and lower extremities. No meningeal signs. Negative Babinski. NIH of 0. Skin: No rash or lesions noted MEDICAL DECISION MAKING: Chief Complaint: Transient difficulty speaking External records reviewed: Imaging reviewed: CT scan of the brain from September 2021 shows no acute abnormality Factors affecting care: hypertension Social determinants of health: Denies drug use History obtained from others: Patient's Consults: Radiology, internal medicine (Dr. Bishop) MDM Narrative: The patient was hemodynamically stable, afebrile, nontoxic-appearing. Initial neuroexam was nonfocal. She had NIH of 0. She had a candidate for TNK or thrombectomy at this time given nonfocal neuroexam and NIH of 0 I considered the following differential diagnosis: TIA, CVA, focal seizure, ICH,arrhythmia I obtained a broad lab and imaging workup to further elucidate the etiology the patient complaint ALL IMAGES (IF OBTAINED) HAVE BEEN PERSONALLY REVIEWED AND INTERPRETED BY MYSELF. EKG with normal sinus rhythm, normal axis, normal intervals, no STEMI CT scan head was negative I have personally reviewed the patient's chest x-ray. Chest x-ray is unremarkable for pulmonary edema, pneumothorax, pneumonia or focal cardiopulmonary abnormality. CBC with no leukocytosis, anemia, no thrombocytopenia No coagulopathy BMP with CKD that is worsening from prior however no evidence ofacute kidney injury, no electrolyte abnormalities High-sensitivity troponin is negative, no evidence of myocardial ischemia The synthesis of the patient's history, physical exam, labs images suggest likely TIA. Will admit for risk factor modification, MRI and further evaluationand neurologic consultation. Discussed with hospitalist The patient and/or family, caregivers express understanding. The patient and/orfamily, caregivers agrees with the plan. Shared decision making: I will have a discussion with the patient and or visitors regarding risk/benefits of further testing or admission. They will be made aware of of the risk/benefits inherent in this decision they will be given the opportunity to voice understanding. Total critical care time today provided was at least 0 minutes. This excludes separately billable procedures. Critical care time (if documented) is secondary to the patient having high probability of clinically significant/life threatening deterioration in the patient's condition which required my urgent intervention. Impression: 1. Transient difficulty speaking 2. CKD 3. History of hypertension Dispo: Admit to PCU observation Lab Data Labs: Laboratory Results - last 24 hr 08/07/23 18:25 WBC 7.7 RBC 4.25 Hgb 11.8 L Hct 38.0 MCV 89.4 MCH 27.8 MCHC 31.1 L RDW Std Deviation 45.1 H RDW Coeff of Jaye 13.8 Plt Count 304 MPV 11.0 Immature Gran % (Auto) 0.400 Neut % (Auto) 61.1 Lymph % (Auto) 28.8 Putnam % (Auto) 6.2 Eos % (Auto) 3.0 Baso % (Auto) 0.5 Absolute Neuts (auto) 4.7 Absolute Lymphs (auto) 2.22 Nucleated RBC % 0 PT 12.4 INR 0.9 APTT 26.8 Sodium 143 Potassium 3.9 Chloride 113 H Carbon Dioxide 24.0 Anion Gap 6 BUN 43 H Creatinine 1.82 H Estim Creat Clear Calc 34.69 Est GFR (MDRD) Af Amer 35 L Est GFR (MDRD) Non-Af 29 L BUN/Creatinine Ratio 23.6 H Glucose 119 H Calcium 9.1 Troponin I High Sens 14 Radiography Diagnostic Testing: Clinical Impression(s) from Imaging Studies Brain CT 08/07/23 18:15 IMPRESSION: Normal Brain CT without contrast. Electronically Signed: Brenda Lee MD at 19:18 EST , ADDENDUM: 08/07/231928 IMPRESSION: Normal Brain CT without contrast. N.B. : The above Results were Read Back by Brenda Lee MD to Christopher Gao DO, and understanding confirmed on 08/07/2023 19:22:22 (ET). Electronically Signed: Brenda Lee MD at 19:18 EST , Chest X-Ray 08/07/23 19:08 IMPRESSION: No acute cardiopulmonary disease. Electronically Signed: Brenda Lee MD at 19:24 EST , Discharge Plan Triage Chief Complaint: Neuro S/Sx ED Provider: Christopher Gao Dx/Rx/DC Orders Prescriptions: No Action cyanocobalamin (vitamin B-12) [Vitamin B-12] 2,500 mcg tablet, sublingual 2,500 mcg PO MOWEFR losartan 25 mg tablet 25 mg PO DAILY meclizine 25 mg tablet 25 mg PO TID PRN (Reason: DIZZINESS ) Qty: 30 2RF colchicine 0.6 mg tablet 0.6 mg PO BID hydrochlorothiazide 12.5 mg tablet 12.5 mg PO DAILY Primary Care Provider: Patricia Becker Referrals: Patricia Becker DO [Primary Care Provider] - What to do if you have Problems For any increased pain, shortness of breath, bleeding, nausea or vomiting, chestpain, or any unexpected problems, contact your Primary Care Provider. Call [facility] ([phone]) or report to the closest Emergency Room. Call 911 if necessary. 08/07/231951 <Electronically signed by Christopher Gao DO> Cosigner Signature (if applicable): CC: Dr. Patricia Becker DO ~ Signed [facility] Work Phone: Consult note Author Kishore Reddy [facility] August 09, 2023 3:59pm Note Date/Time August 09, 2023 3 :59pm [facility] [place] Medical Records Department [address] [place] [address] Counseling Note - Pharmacy 08/09/23 1558 MR#: [id number] Acct: [id number] Name: VERONICA COOK Rep #:[id number] : 1950 73 From: Kishore Reddy PCP: Dr. Patricia Becker, DO Status:AD M KIM Y Location: [place] [address] Pharmacy [facility] has performed discharge medication reconciliation and counseling for this patient. The patient's discharge medication list was reviewed for discrepancies and discrepancies were resolved. The patient was counseled on the following discharge medications and changes in medications for homegoing were reviewed. The Reason for Use, instructions for use, and potential side effects were reviewed for all new medications. The patient's questions regarding all of their medications were answered. 1. Aspirin 81 mg PO daily 2. Atorvastatin 80 mg PO QHS The patient was able to verbally demonstrate an understanding of their dischargemedications. Medications at Discharge Home Medications hydrochlorothiazide 12.5 mg tablet 12.5 mg PO DAILY BLOOD PRESSURE 01/25/21 cyanocobalamin (vitamin B-12) 2,500 mcg sublingual tablet (Vitamin B-12) 2,500 mcg PO MOWEFR SUPPLEMENT 10/18/21 losartan 25 mg tablet 25 mg PO DAILY BLOOD PRESSURE 10/18/21 aspirin 81 mg chewable tablet 81 mg PO BREAKFAST 90 days #90 tabs 08/09/23 atorvastatin 80 mg tablet 80 mg PO QHS 90 days #90 tabs 08/09/23 08/09/23 [id number] <Electronically signed by Kishore gómez> Date _ Kishore Reddy Cosigner Signature (if applicable): Date CC: ~ Signed [facility] Work Phone: Evaluation note* Diagnosis Onset Date Resolution Status Benign paroxysmal positional vertigo acute Dizziness acute Vertigo acute [facility] Work Phone: Evaluation note* Diagnosis Onset Date Resolution Status Dizziness resolved [facility] Work Phone: Evaluation noteNo assessment information available [facility] Work Phone: Evaluation note* Diagnosis Onset Date Resolution Status Stroke-like symptoms acute [facility] Work Phone: Evaluation note* Diagnosis Onset Date Resolution Status Acute CVA (cerebrovascular accident) acute Stroke-like symptoms acute [facility] Work Phone: Evaluation note* Diagnosis Onset Date Resolution Status Acute CVA (cerebrovascular accident) acute Stroke-like symptoms acute TIA (transient ischemic attack) acute CKD (chronic kidney disease) stage 3, GFR 30-59 ml/min chronic [facility] Work Phone: Evaluation note* Diagnosis Onset Date Resolution Status Acute CVA (cerebrovascular accident) acute TIA (transient ischemic attack) acute CKD (chronic kidney disease) stage 3, GFR 30-59 ml/min chronic Stroke-like symptoms resolve d [facility] Work Phone[facility] Work Phone: [phone] Work Phone: [phone] Work Phone: [phone] Work Phone: Instructions* Name Dates Details How to access health [...] Informa tion Online using Patient Portal and [employer] Apps Indication:HTN (hypertension), benign Start:09-Dec-2020 Instruction [...] Informa tion Online using Patient Portal and [employer] Apps Indication:JESUS (obstructive sleep apnea) Start:16-Dec-2020 Instruction Type:Patient Education Patient Instructions Indication:Non-smoker Start:09-Dec-2020 Instruction Type:Provider Instructions for Treatment How to Access Health Informa tion Online using Patient Portal and [employer] Apps Indication:HTN (hypertension), benign Start:09-Dec-2020 Instruction Type:Patient [...] Informa tion Online using Patient Portal and [employer] Apps Indication:JESUS (obstructive sleep apnea) Start:16-Dec-2020 [...] Informa tion Online using Patient Portal and [employer] Apps Indication:Non-smoker Start:17-Jan-2021 Instruction Type:Patient Education Patient Instructions Indication:CKD stage G3b/A1, GFR 30-44 and albumin creatinine ratio <30 mg/g Start:16-Dec-2020 Instruction Type:Provider Instructions for Treatment How to Access Health Informa tion Online using Patient Portal and [employer] Apps Indication:JESUS (obstructive sleep apnea) Start:16-Dec-2020 Instruction Type:Patient Education Patient Instructions Indication:Non-smoker Start:09-Dec-2020 Instruction Type:Provider Instructions for Treatment How to Access Health Informa tion Online using Patient Portal and [employer] Apps Indication:HTN (hypertension), benign Start:09-Dec-2020 Instruction [...] Informa tion Online using Patient Portal and [employer] Apps Indication:Non-smoker Start:17-Jan-2021 Instruction Type:Patient Education Patient [...] Informa tion Online using Patient Portal and [employer] Apps Indication:BMI 39.0-39.9,adult Start:30-May-2021 Instruction Type:Patient [...] Informa tion Online using Patient Portal and [employer] Apps Indication:Impaired fasting glucose Start:24-Jan-2022 Instruction Type:Patient Education Patient Instructions Indication:BMI 39.0-39.9,adult Start:24-Oct-2021 Instruction Type:Provider Instructions for Treatment How to Access Health Informa tion Online using Patient Portal and [employer] Apps Indication:BMI 39.0-39.9,adult Start:24-Oct-2021 Instruction Type:Patient Education Patient Instructions Indication:BMI 39.0-39.9,adult Start:30-May-2021 Instruction Type:Provider Instructions for Treatment How to Access Health Informa tion Online using Patient Portal and [employer] Apps Indication:BMI 39.0-39.9,adult Start:30-May-2021 Instruction Type:Patient Education Patient Instructions Indication:Encounter for screening for malignant neoplasm of colon (Renamed from Special screening for malignant neoplasms, colon) Start:25-Apr-2021 Instruction Type:Provider Instructions for Treatment How to Access Health Informa tion Online using Patient Portal and [employer] Apps Indication:Non-smoker Start:25-Apr-2021 Instruction Type:Patient Education Patient Instructions Indication:Non-smoker Start:17-Jan-2021 Instruction Type:Provider Instructions for Treatment How to Access Health Informa tion Online using Patient Portal and [employer] Apps Indication:Non-smoker Start:17-Jan-2021 Instruction Type:Patient Education Patient [...] Informa tion Online using Patient Portal and [employer] Apps Indication:JESUS (obstructive sleep apnea) Start:16-Dec-2020 Instruction Type:Patient Education Patient Instructions Indication:Non-smoker Start:09-Dec-2020 Instruction Type:Provider Instructions for Treatment How to Access Health Informa tion Online using Patient Portal and [employer] Apps Indication:HTN (hypertension), benign Start:09-Dec-2020 Instruction [...] Informa tion Online using Patient Portal and [employer] Apps Indication:Non-smoker Start:05-Feb-2022 Instruction Type:Patient Education [...] Informa tion Online using Patient Portal and [employer] Apps Indication:Non-smoker Start:15-Mar-2022 Instruction Type:Patient Education Patient Instructions Indication:Morbid obesity Start:08-Mar-2022 Instruction Type:Provider Instructions for Treatment How to Access Health Informa tion Online using Patient Portal and [employer] Apps Indication:Morbid obesity Start:08-Mar-2022 Instruction Type:Patient Education [...] Informa tion Online using Patient Portal and [employer] Apps Indication:BMI 39.0-39.9,adult Start:24-Oct-2021 Instruction Type:Patient Education [...] Informa tion Online using Patient Portal and [employer] Apps Indication:Non-smoker Start:22-Feb-2022 Instruction Type:Patient Education Patient Instructions Indication:Non-smoker Start:05-Feb-2022 Instruction Type:Provider Instructions for Treatment How to Access Health Informa tion Online using Patient Portal and [employer] Apps Indication:Non-smoker Start:05-Feb-2022 Instruction Type:Patient Education Patient Instructions Indication:Impaired fasting glucose Start:24-Jan-2022 Instruction Type:Provider Instructions for Treatment How to Access Health Informa tion Online using Patient Portal and [employer] Apps Indication:Impaired fasting glucose Start:24-Jan-2022 Instruction Type:Patient Education Patient Instructions Indication:BMI 39.0-39.9,adult Start:24-Oct-2021 Instruction Type:Provider Instructions for Treatment How to Access Health Informa tion Online using Patient Portal and [employer] Indication:BMI 39.0-39.9,adult Start:24-Oct-2021 Instruction Type:Patient Education Patient Instructions Indication:BMI 39.0-39.9,adult Start:30-May-2021 Instruction Type:Provider Instructions for Treatment How to Access Health Informa tion Online using Patient Portal and [employer] Apps Indication:BMI 39.0-39.9,adult Start:30-May-2021 Instruction Type:Patient Education Patient Instructions Indication:Encounter for screening for malignant neoplasm of colon (Renamed from Special screening for malignant neoplasms, colon) Start:25-Apr-2021 Instruction Type:Provider Instructions for Treatment How to Access Health Informa tion Online using Patient Portal and [employer] Apps Indication:Non-smoker Start:25-Apr-2021 Instruction Type:Patient Education Patient Instructions Indication:Non-smoker Start:17-Jan-2021 Instruction Type:Provider Instructions for Treatment How to Access Health Informa tion Online using Patient Portal and [employer] Apps Indication:Non-smoker Start:17-Jan-2021 Instruction Type:Patient Education Patient [...] Informa tion Online using Patient Portal and [employer] Apps Indication:Non-smoker Start:25-Mar-2023 Instruction Type:Patient Education [...] Informa tion Online using Patient Portal and [employer] Apps Indication:Non-smoker Start:12-Apr-2023 Instruction Type:Patient Education Patient Instructions Indication:Non-smoker Start:12-Apr-2023 Instruction Type:Provider Instructions for Treatment Patient Instructions Indication:Non-smoker Start:25-Mar-2023 Instruction Type:Provider Instructions for Treatment How to Access Health Informa tion Online using Patient Portal and [employer] Apps Indication:Non-smoker Start:25-Mar-2023 Instruction Type:Patient Education Patient Instructions Indication:Non-smoker Start:25-Feb-2023 Instruction Type:Provider Instructions for Treatment How to Access Health Informa tion Online using Patient Portal and [employer] Apps Indication:Non-smoker Start:25-Feb-2023 Instruction Type:Patient Education Patient Instructions Indication:BMI 40.0-44.9, adult Start:25-Oct-2022 Instruction Type:Provider Instructions for Treatment How to Access Health Informa tion Online using Patient Portal and [employer] Apps Indication:BMI 40.0-44.9, adult Start:25-Oct-2022 Instruction Type:Patient Education Patient Instructions Indication:Non-smoker Start:15-Mar-2022 Instruction Type:Provider Instructions for Treatment How to Access Health Informa tion Online using Patient Portal and [employer] Apps Indication:Non-smoker Start:15-Mar-2022 Instruction Type:Patient Education Patient Instructions Indication:Morbid obesity Start:08-Mar-2022 Instruction Type:Provider Instructions for Treatment How to Access Health Informa tion Online using Patient Portal and [employer] Apps Indication:Morbid obesity Start:08-Mar-2022 Instruction Type:Patient Education Patient Instructions Indication:Non-smoker Start:22-Feb-2022 Instruction Type:Provider Instructions for Treatment How to Access Health Informa tion Online using Patient Portal and [employer] Apps Indication:Non-smoker Start:22-Feb-2022 Instruction Type:Patient Education Patient Instructions Indication:Non-smoker Start:05-Feb-2022 Instruction Type:Provider Instructions for Treatment How to Access Health Informa tion Online using Patient Portal and [employer] Apps Indication:Non-smoker Start:05-Feb-2022 Instruction Type:Patient Education Patient Instructions Indication:Impaired fasting glucose Start:24-Jan-2022 Instruction Type:Provider Instructions for Treatment How to Access Health Informa tion Online using Patient Portal and [employer] Apps Indication:Impaired fasting glucose Start:24-Jan-2022 Instruction Type:Patient Education Patient Instructions Indication:BMI 39.0-39.9,adult Start:24-Oct-2021 Instruction Type:Provider Instructions for Treatment How to Access Health Informa tion Online using Patient Portal and [employer] Apps Indication:BMI 39.0-39.9,adult Start:24-Oct-2021 Instruction Type:Patient [...] Informa tion Online using Patient Portal and [employer] Apps Indication:Non-smoker Start:17-Jan-2021 Instruction Type:Patient Education Patient Instructions Indication:CKD stage G3b/A1, GFR 30-44 and albumin creatinine ratio <30 mg/g Start:16-Dec-2020 Instruction Type:Provider Instructions for Treatment How to Access Health Informa tion Online using Patient Portal and [employer] Apps Indication:JESUS (obstructive sleep apnea) Start:16-Dec-2020 Instruction Type:Patient Education Patient Instructions Indication:Non-smoker Start:09-Dec-2020 Instruction Type:Provider Instructions for Treatment How to Access Health Informa tion Online using Patient Portal and [employer] Apps Indication:HTN (hypertension), benign Start:09-Dec-2020 Instruction [...] Informa tion Online using Patient Portal and [employer] Apps Indication:Non-smoker Start:29-Apr-2023 Instruction Type:Patient Education Patient Instructions Indication:Non-smoker Start:29-Apr-2023 Instruction Type:Provider Instructions for Treatment How to Access Health Informa tion Online using Patient Portal and [employer] Apps Indication:Non-smoker Start:12-Apr-2023 Instruction Type:Patient Education Patient Instructions Indication:Non-smoker Start:12-Apr-2023 Instruction Type:Provider Instructions for Treatment Patient Instructions Indication:Non-smoker Start:25-Mar-2023 Instruction Type:Provider Instructions for Treatment How to Access Health Informa tion Online using Patient Portal and [employer] Apps Indication:Non-smoker Start:25-Mar-2023 Instruction Type:Patient Education Patient Instructions Indication:Non-smoker Start:25-Feb-2023 Instruction Type:Provider Instructions for Treatment How to Access Health Informa tion Online using Patient Portal and [employer] Apps Indication:Non-smoker Start:25-Feb-2023 Instruction Type:Patient Education Patient [...] Informa tion Online using Patient Portal and [employer] Apps Indication:Non-smoker Start:17-Jan-2021 Instruction Type:Patient Education Patient Instructions Indication:CKD stage G3b/A1, GFR 30-44 and albumin creatinine ratio <30 mg/g Start:16-Dec-2020 Instruction Type:Provider Instructions for Treatment How to Access Health Informa tion Online using Patient Portal and [employer] Apps Indication:JESUS (obstructive sleep apnea) Start:16-Dec-2020 Instruction Type:Patient Education Patient Instructions Indication:Non-smoker Start:09-Dec-2020 Instruction Type:Provider Instructions for Treatment How to Access Health Informa tion Online using Patient Portal and [employer] Apps Indication:HTN (hypertension), benign Start:09-Dec-2020 Instruction Type:Patient [...] Informa tion Online using Patient Portal and [employer] Apps Indication:Non-smoker Start:29-Apr-2023 Instruction Type:Patient Education Patient Instructions Indication:Non-smoker Start:29-Apr-2023 Instruction Type:Provider Instructions for Treatment How to Access Health Informa tion Online using Patient Portal and [employer] Apps Indication:Non-smoker Start:12-Apr-2023 Instruction Type:Patient Education Patient Instructions Indication:Non-smoker Start:12-Apr-2023 Instruction Type:Provider Instructions for Treatment Patient Instructions Indication:Non-smoker Start:25-Mar-2023 Instruction Type:Provider Instructions for Treatment How to Access Health Informa tion Online using Patient Portal and [employer] Apps Indication:Non-smoker Start:25-Mar-2023 Instruction Type:Patient Education Patient Instructions Indication:Non-smoker Start:25-Feb-2023 Instruction Type:Provider Instructions for Treatment How to Access Health Informa tion Online using Patient Portal and [employer] Apps Indication:Non-smoker Start:25-Feb-2023 Instruction Type:Patient Education Patient Instructions Indication:BMI 40.0-44.9, adult Start:25-Oct-2022 Instruction Type:Provider Instructions for Treatment How to Access Health Informa tion Online using Patient Portal and [employer] Apps Indication:BMI 40.0-44.9, adult Start:25-Oct-2022 Instruction Type:Patient [...] Internal Medicine; [facility] Work Phone: reason for referral (narrative)No reason for [facility] Work [facility]: Summary Purpose Family History Unknown [...] Mother Comments:Insulin dependant d iabetes, HTN Status:Active Relationship Condition Age at Onset Recorded Date/T haley mother Diabetes mellitus Unknown Hypertension Unknown Unknown Family Member Name Dates Details Mother [...] dependant d iabetes, HTN Status:Active Advance Directives Advance Directive Response Recorded Date/ Time Living Will No October 18, 2021 12:19pm Power of Hvac Technician Residential No October 18 12:19pm Advance Directive Response Recorded Date/ Time Living Will No October 18, 2021 11:19am Power of Hvac Technician Residential No October 18 11:19am Advance Directive Response Recorded Date/ Time Living Will No August 07 5:55pm Power of Hvac Technician Residential No August 07, 2023 5:55pm Advance Directive Response Recorded Date/ Time Living Will No August 07 9:19pm Power of Hvac Technician Residential No August 07, 2023 9:19pm Advance Directive Response Recorded Date/ Time Living Will No August 14 4:31pm Power of Hvac Technician Residential No August 14, 2023 4:31pm Advance Directive Response Recorded Date/ Time Living Will No August 27 8:10pm Power of Hvac Technician Residential No August 27, 2023 8:10pm Advance Directive Response Recorded Date/ Time Living Will No August 27 9:10pm Power of Hvac Technician Residential No August 27, 2023 9:10pm Instructions Name Dates Details Fever and chills [...] Indication:Dysthymic Start:26-May-2012 Instruction Type:Provider Instructions for Treatment Chief Complaint and Reason for Visit Chief Complaint DIZZINESS Dizziness (cardiology) Reason for Visit Benign paroxysmal po sitional vertigo Dizziness Vertigo Chief Complaint DIZZINESS Dizziness (cardiology) [facility]- [facility] PCP Reason for Visit Dizziness Chief Complaint DIZZINESS Dizziness (cardiology) [facility]- [facility] PCP CYST OF KIDNEY Reason for Visit Dizziness Chief Complaint XRAY Chief Complaint XRAY TIA Reason for Visit Stroke-like symptoms Chief Complaint XRAY TIA TIA (cardiology) Reason for Visit Acute CVA (cerebrova scular accident) Stroke-like symptoms Chief Complaint XRAY TIA TIA (cardiology) TIA (cardiology) LIGHTHEADED Reason for Visit Acute CVA (cerebrova scular accident) Stroke-like symptoms TIA (transient ischemic attack) CKD (chronic kidney disease) stage 3, GFR 30-59 ml/min Chief Complaint XRAY TIA TIA (cardiology) TIA (cardiology) LIGHTHEADED TIA, evaluate for Afib dizziness Reason for Visit Acute CVA (cerebrova scular accident) TIA (transient ischemic attack) CKD (chronic kidney disease) stage 3, GFR 30-59 ml/min Stroke-like symptoms Chief Complaint XRAY TIA TIA (cardiology) TIA (cardiology) LIGHTHEADED 30 DAY MONITOR TIA, evaluate for Afib dizziness AFIB/VTACH AFIB/VTACH Reason for Visit Acute CVA (cerebrova scular accident) TIA (transient ischemic attack) CKD (chronic kidney disease) stage 3, GFR 30-59 ml/min Stroke-like symptoms Chief Complaint Admit Date 6 M FU November 05, 2024 8:5 1am LEFT KNEE December 23, 2024 12:56 pm Room 4 December 23, 2024 1:13p m Reason for Visit Admit Date Atrial fibrillation November 05, 2024 8:5 1am Essential hypertension November 05, 2024 8:51am JESUS (obstructive sleep apnea) October 8:51am Reason for Visit Admit Date Atrial fibrillation November 05, 2024 8:5 1am Essential hypertension November 05, 2024 8:51am JESUS (obstructive sleep apnea) October 8:51am Osteoarthritis of left knee December 23 12:56pm Chief Complaint Admit Date LEFT KNEE December 23, 2024 12:56 pm Room 4 December 23, 2024 1:13p m Reason for Visit Admit Date Generalized edema December 23, 2024 12:56 pm Osteoarthritis of left knee December 23 12:56pm Chief Complaint Admit Date LEFT KNEE December 23, 2024 12:56 pm Room 4 December 23, 2024 1:13p m ABN VAGINAL BLEEDING March 09, 2025 2 :17pm Additional Source Comments INFORMATION SOURCE (unrecogn ized section and content) DATE CREATED AUTHOR 05/16/2018 [facility] DATE CREATED AUTHOR AUTHOR'S ORGANIZ ATION 05/24/2018 [facility] DATE CREATED AUTHOR AUTHOR'S ORGANIZ ATION 05/27/2018 [facility] DATE CREATED AUTHOR AUTHOR'S ORGANIZ ATION 10/30/2022 [facility] DATE CREATED AUTHOR AUTHOR'S ORGANIZ ATION 2025 [facility] Goals (unrecognized section and content) Goals may be documented in a n alternate sectionGoals may be documented in an alternate sectionGoals may be documented in an alternate sectionGoals may be documented in an alternate sectionGoals may be documented in an alternate sectionGoals may be documented in an alternate sectionGoals may be documented in an alternate sectionGoals may be documented in an alternate sectionGoals may be documented in an alternate sectionGoals may be documented in an alternate sectionGoals may be documented in an alternate section Care Teams (unrecognized sec tion and content) Team Status: Active Member Role Status Dates Dr. Patricia Becker , DO Family Provider Active Dr. Patricia Becker DO Primary Care Provider Active Team Status: Inactive Member Role Status Dates Dr. Patricia Becker DO Primary Care Provider Active Dr. Alireza Arellano MD Attending Provider Active Team Status: Inactive Member Role Status Dates Dr. Patricia Becker DO Primary Care Provider Active Deedee Cruz NP-C Attending Provider, Referring Pr ovider Active Team Status: Active Member Role Status Dates Dr. Patricia Becker DO Primary Care Provider Active Dr. Christopher Gao , DO Emergency Provider Active Dr. Vandana Bishop MD Admit Provider, Attending Prov ider Active Team Status: Active Member Role Status Dates Dr. Patricia Becker DO Primary Care Provider Active Dr. Aram Gutiérrez MD Attending Provider Active Team Status: Active Member Role Status Dates Dr. Patricia Becker DO Primary Care Provider Active Dr. Alireza Arellano MD Attending Provider Active Team Status: Active Member Role Status Dates Dr. Patricia Becker DO Primary Care Provider Active Dr. Christopher Gao , DO Emergency Provider Active Dr. Vandana Bishop MD Admit Provider, Other Provider Active Dr. Mike Taveras , DO Attending Provider, Other Provider Active Brandon Hassan MD Other Provider Active Dr. Roney Chadwick MD Other Provider Active Shagufta Lee MD Other Provider Active Dr. Yancy Bond , DO Other Provider Active Dr. Jennifer Bauer MD Other Provider Active Dr. Dmitriy Curiel MD Other Provider Active Dr. Juliann Damico MD Other Provider Active Dr. Delano Jansen MD Other Provider Active Dr. Troy Núñez MD Other Provider Active Petrona Rivera MD Other Provider Active Dr. Jensen Bass MD Other Provider Active Dr. Sharmin Acevedo MD Other Provider Active Dr. Don Hurst MD Other Provider Active Dr. Shivani Mcgowan MD Other Provider Active Dr. Brandon Bernstein MD Other Provider Active Dr. Shahzad Ocampo MD Other Provider Active Dr. Aung Altamirano MD Other Provider Active Dr. Claudia Gonzales MD Other Provider Active Yue Victor MD Other Provider Active Team Status: Inactive Member Role Status Dates Dr. Patricia Becker , DO Primary Care Provider Active Dr. Christopher Gao , DO Emergency Provider Active Dr. Vandana Bishop MD Admit Provider, Other Provider Active Dr. Mike Taveras , DO Attending Provider Active Brandon Hassan MD Other Provider Active Dr. Roney Chadwick MD Other Provider Active Shagufta Lee MD Other Provider Active Dr. Yancy Bond , DO Other Provider Active Dr. Jennifer Bauer MD Other Provider Active Dr. Dmitriy Curiel MD Other Provider Active Dr. Juliann Damico MD Other Provider Active Dr. Delano Jansen MD Other Provider Active Dr. Troy Núñez MD Other Provider Active Petrona Rivera MD Other Provider Active Dr. Jensen Bass MD Other Provider Active Dr. Sharmin Acevedo MD Other Provider Active Dr. Don Hurst MD Other Provider Active Dr. Shivani Mcgowan MD Other Provider Active Dr. Brandon Bernstein MD Other Provider Active Dr. Shahzad Ocampo MD Other Provider Active Dr. Aung Altamirano MD Other Provider Active Dr. Claudia Gonzales MD Other Provider Active Yue Victor MD Other Provider Active Team Status: Inactive Member Role Status Dates Dr. Patricia Becker , DO Primary Care Provider Active Dr. Liam Elliott , DO Emergency Provider Active Team Status: Active Member Role Status Dates Dr. Patricia Becker , DO Primary Care Provider Active Dr. Aram Gutiérrez MD Attending Provider Active Dr. Vandana Bishop MD Referring Provider Active Team Status: Inactive Member Role Status Dates Dr. Patricia Becker , DO Primary Care Provider Active Dr. Liam Elliott , DO Attending Provider, Emergency Provider Active Team Status: Active Member Role Status Dates Dr. Mike Taveras , DO Attending Provider, Refer ring Provider Active Dr. Patricia Becker , DO Primary Care Provider Active Team Status: Inactive Member Role Status Dates Dr. Patricia Becker , DO Primary Care Provider Active Dr. Brandon Arrieta MD Emergency Provider Active Team Status: Active Member Role Status Dates Dr. Patricia Becker , DO Primary Care Provider Active Dr. Alireza Arellano MD Attending Provider Active Dr. Mike Taveras , DO Referring Provider Active Team Status: Active Member Role Status Dates Dr. Patricia Becker , DO Primary Care Pr ovider, Referring Provider, Other Provider Active Dr. Nina Chou MD Attending Provider Activ e Team Status: Inactive Member Role Status Dates Dr. Patricia Becker DO Primary Care Provider Active Dr. Brandon Arrieta MD Attending Provider, Emergency Provider Active Team Status: Inactive Member Role Status Dates Dr. Patricia Becker , DO Primary Care Pr ovider, Attending Provider, Referring Provider Active Team Status: Inactive Member Role Status Dates Dr. Patricia Becker DO Primary Care Provider Active Start: November 05, 2024 End: November 05, 2024 Dr. Patricia Becker , DO Referring Provider Active Start: November 05, 2024 End: November 05, 2024 Cassie David PA, PA Attending Provider Active Start: November 05, 2024 End: November 05, 2024 Team Status: Active Member Role Status Dates Dr. Patricia Becker DO Primary Care Provider Active Start: December 23, 2024 Dr. Patricia Becker DO Referring Provider Active Start: December 23, 2024 RAISSA Jackson Attending Provider Active Start: December 23, 2024 Team Status: Inactive Member Role Status Dates Dr. Patricia Becker , DO Primary Care Provider Active Start: December 23, 2024 End: December 23, 2024 Dr. Alireza Arellano MD Attending Provider Active S tart: December 23, 2024 End: December 23, 2024 Team Status: Inactive Member Role Status Dates Dr. Patricia Becker , DO Primary Care Provider Active Start: December 23, 2024 End: December 23, 2024 Dr. Patricia Becker DO Referring Provider Active Start: December 23, 2024 End: December 23, 2024 RAISSA Jackson Attending Provider Active Start: December 23, 2024 End: December 23, 2024 Team Status: Active Member Role/Relationship Status Dates Dr. Patricia Becker DO Primary Care Provider Active Team Status: Inactive Member Role/Relationship Status Dates Dr. Patricia Becker DO Primary Care Provider Active Start: December 23, 2024 End: December 23, 2024 Dr. Patricia Becker DO Referring Provider Active Start: December 23, 2024 End: December 23, 2024 RAISSA Jackson Attending Provider Active Start: December 23, 2024 End: December 23, 2024 Team Status: Inactive Member Role/Relationship Status Dates Dr. Patricia Becker DO Primary Care Provider Active Start: December 23, 2024 End: December 23, 2024 Dr. Alireza Arellano MD Attending Provider Active S tart: December 23, 2024 End: December 23, 2024 Team Status: Inactive Member Role/Relationship Status Dates Dr. Patricia Becker DO Primary Care Provider Active Start: March 03, 2025 End: March 03, 2025 Dr. Patricia Becker DO Attending Provider Active Start: March 03, 2025 End: March 03, 2025 Dr. Patricia Becker DO Referring Provider Active Start: March 03, 2025 End: March 03, 2025 Team Status: Inactive Member Role/Relationship Status Dates Dr. Patricia Becker DO Primary Care Provider Active Start: March 09, 2025 End: March 09, 2025 Dr. Patricia Becker DO Attending Provider Active Start: March 09, 2025 End: March 09, 2025 Dr. Patricia Becker DO Referring Provider Active Start: March 09, 2025 End: March 09, 2025 FOR RECORDS PERTAINING TO PATIENTS WHO ARE [...] BE BASED ON THE PRIMARY CLINICAL RECORDS. [facility] [employer] [facility]. provides no warranty or guarantee of the accuracy or completeness of information in this document.
== END | disposition home or self-care (01) ==
LOC: CT 06:22
PROVIDERS: PCP Internal Medicine; Referring Provider Internal Medicine; Visit Provider Internal Medicine
DX: E27.9 Disorder of adrenal gland, unspecified (principal)
CPT/HCPCS: 74170; Q9967; A4216

== ENCOUNTER → 2025-04-30 | Outpatient (CLI) | payer MEDICARE, OTHER, SELFPAY ==
--- NOTE | 2025-04-30 12:15 | EMB_PTH ---
PATIENT: ROGE COOK LOC: [facility] U#:[id number] AGE/SX: 75/F ROOM: RE04/30/[address]: Dr. Maeve Hudson DO : 1950 BED: DIS: 04/30/2025 SPEC #: [id number] RECD: 04/30/25 15:32 STATUS: BRIANA REJann #: [id number] ROXI: 04/30/25 12:[address]: Maeve Hudson DEPT: SURGICAL PATHOLOGY RECD BY: Elijah Fleming ENTERED: 04/30/25 15:47 SP TYPE: ENDOM BX/C RIANNA DR: Dr. Patricia Becker DO Tissues: A - Endometrium, NOS Procedures: Surgery Specimen Level IV HEADER OPERATION: Endometrial biopsy PRE-OP DIAGNOSIS: Abnormal uterine bleeding TISSUE SUBMITTED: A- Endometrial lining MICROSCOPIC DIAGNOSIS A. Endometrium, biopsy: * Endometrial polyp with inactive endometrium MICROSCOPIC DESCRIPTION Slides are reviewed. GROSS DESCRIPTION A. Received in formalin labeled the patient's name and date of is a 0.8 x 0.3 x 0.1 cm aggregate of mucoid material and flecks of pink-red tissue fragments. Entirely submitted in 1 cassette. Entirety of the specimen may not survive processing. DE 04/30/2025 CPT:[id number]
== END | disposition home or self-care (01) ==
LOC: LABSPEC 15:11
PROVIDERS: PCP Internal Medicine; Visit Provider Obstetrics & Gynecology
DX: N84.0 Polyp of corpus uteri (principal); N93.9 Abnormal uterine and vaginal bleeding, unspecified
CPT/HCPCS: 88305

== ENCOUNTER → 2025-05-04 | Outpatient (CLI) | payer MEDICARE, OTHER, SELFPAY | END | disposition home or self-care (01) | LOC: LABSPEC 12:05 | PROVIDERS: PCP Internal Medicine; Referring Provider Surgery; Visit Provider Surgery | DX: E04.1 Nontoxic single thyroid nodule (principal) | CPT/HCPCS: 88108; 88161; 88313 ==

== ENCOUNTER → 2025-05-24 | Outpatient (CLI) | payer MEDICARE, OTHER, SELFPAY ==
[2025-05-24 10:31] LABS: Potassium 6.0 mmol/L (3.3-5.1)
[2025-05-24 17:05] LABS: Albumin, Serum 3.9 g/dL (3.4-4.8); Anion Gap 11 (5-15); BUN 29 mg/dL (4-19); BUN/Creat Ratio 20.1 RATIO (10-20); Calcium,Total 9.6 mg/dL (7.6-11.0); Carbon Dioxide 20.8 mmol/L (21.0-32.0); Chloride 109 mmol/L (98-108); Glucose 131 mg/dL (70-99); Potassium 5.1 mmol/L (3.3-5.1)
== END | disposition home or self-care (01) ==
LOC: LABSPEC 09:30 → MTLAB 09:47
PROVIDERS: Obstetrics & Gynecology; PCP Internal Medicine; Referring Provider Internal Medicine; Visit Provider Surgery
DX: E04.1 Nontoxic single thyroid nodule (principal); E87.5 Hyperkalemia
CPT/HCPCS: 36415; 80069; 82088; 84132; 84244; 86850; 86900; 86901; 88108; 88161; 88313

== ENCOUNTER 2025-05-25 13:23 | Day surgery (SDC) | payer MEDICARE, OTHER, SELFPAY ==
--- NOTE | 2025-05-18 09:00 | EKG12_ITS ---
Test Reason : PREOP Blood Pressure : */* mmHG Vent. Rate : 56 BPM Atrial Rate : 56 BPM P-R Int : 182 ms QRS Dur : 84 ms QT Int : 420 ms P-R-T Axes : 50 3 36 degrees QTcB Int : 405 ms Sinus bradycardia Minimal voltage criteria for LVH, may be normal variant Borderline ECG Confirmed by Donovan Beckford ([id number]), editorial assistant MACK JUNIOR ([id number]) on 05/18/2025 11:05:14 AM Referred By: Maeve Hudson Confirmed By: Donovan Beckford
[2025-05-18 11:11] LABS: Hematocrit 33.2 % (37-47); Hemoglobin 10.5 g/dL (12.0-15.0); Immature Granulocytes Count 0.020 X10^3/uL (0.0-0.0); Mean Corp Hgb Conc 31.6 g/dL (32-36); Mean Corpuscular Volume 90.7 fL (81-99); Mean Platelet Vol. 10.5 fl (6.2-12.0); NRBC Flagged by Analyzer 0 % (0-5); Platelet Count 234 K/mm3 (150-450); RBC Distribution Width CV 14.2 % (11.6-14.6); RBC Distribution Width SD 47.2 fl (35.1-43.9); Red Blood Count 3.66 M/mm3 (4.2-5.4); White Blood Count 7.0 K/mm3 (4.4-11.0)
[2025-05-18 13:16] LABS: Anion Gap 9 (5-15); BUN 23 mg/dL (4-19); BUN/Creat Ratio 16.2 RATIO (10-20); Calcium,Total 9.1 mg/dL (7.6-11.0); Carbon Dioxide 22.4 mmol/L (21.0-32.0); Chloride 109 mmol/L (98-108); Glucose 102 mg/dL (70-99); Potassium 5.6 mmol/L (3.3-5.1)
--- NOTE | 2025-05-20 16:49 | PAT.ANESEVAL ---
Pre-Assessment Diagnosis/Proposed Procedure Planned Operative Procedure(s): HYSTEROSCOPY D&C Anesthesia History Anesthesia History - geospatial extractor analysis: Anesthesia History - geospatial extractor analysis Hx Hospitalization No 05/20/25 10:10 Any Problems With Anesthesia No 05/20/25 10:10 Cholinesterase deficiency No 05/20/25 10:10 You/Your Family Experience No 05/20/25 10:10 fever (hyperthermia) with Relationship Recent Exposure to Contagious No 12/22/24 14:06 Disease Does patient have nerve No 05/20/25 10:10 stimulator Patient instructed to have device shut off --Does patient have Pacemaker or ICD? When Was Last Pacemaker Check QUESTION #4 FULL TEXT: You/Your Family Experience fever (hyperthermia) with Anesthesia Last Oral Intake Last Oral intake: Last Oral Intake NPO since Meds taken in AM with sips of water? Meds patient instructed to take am of surgery PONV PONV - geospatial extractor analysis: PONV - geospatial extractor analysis Female Yes 05/20/25 10:10 HX of Motion Sickness Yes 05/20/25 10:10 HX of N/V After Surgery No 05/20/25 10:10 Non-Smoker Yes 05/20/25 10:10 Duration of Surgery greater No 05/20/25 10:10 than 60 minutes Number of Risk Factors 3 05/20/25 10:10 PONV Score Moderate Risk 05/20/25 10:10 Height & Weight Height & Weight: Anesthesia: Height & Weight Height 5 ft 5 in 05/18/25 08:19 Respiratory Assessment Respiratory Assessment - geospatial extractor analysis: Respiratory Tract Infection Hx - geospatial extractor analysis Hx Respiratory Tract Infection No 05/20/25 10:10 STOP Sleep Apnea STOP Sleep Apnea - geospatial extractor analysis: STOP Sleep Apnea - geospatial extractor analysis Hx Hypertension Yes: CONTROLLED WITH MEDS 05/20/25 10:10 Hx Sleep Apnea Yes 05/20/25 10:10 CPAP Yes 05/20/25 10:10 BIPAP No 05/20/25 10:10 Do you snore loudly (louder than talking or can be heard Do you often feel tired/ fatigued/ sleepy during daytime? Has anyone observed you stop breathing during sleep? STOP Results Positive 05/20/25 10:10 QUESTION #5 FULL TEXT : Do you snore loudly (louder than talking or can be heard through closed doors)? 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 Specify any problems Hx of Preganancy in last 3 No 05/20/25 10:10 Months Nurse Filling Out Transfusion DSCHRIBER 05/20/25 10:10 & Questions: Date: 05/20/25 05/20/25 10:10 Time: 10:11 05/20/25 10:10 Patient unable to answer at this time (ie. confused, unrespo /Reproduction History /Reproductive History - geospatial extractor analysis: /Reproductive Hx- geospatial extractor analysis Hx Now No 05/20/25 10:10 Gestational Age (in weeks): EDC: Hx Hx Para Hx Section SAB No 05/20/25 10:10 PFSH Medical History (Updated 05/20/25 @ 10:21 by Kacy Wright) Wears glasses Wears dentures Post-menopausal Anxiety Alcohol use Thyroid disease Ambulates with cane Arthritis History of renal disease Anemia High cholesterol Migraine headache History of hiatal hernia Gastric reflux Non-smoker Shortness of breath on exertion CPAP (continuous positive airway pressure) dependence History of pain when walking History of echocardiogram History of stress test Hypertension Cardiology follow-up encounter Thyroid nodule H/O nephrolithotomy with removal of calculi Atrial fibrillation Chronic kidney disease (CKD) Atrophic kidney Shaking Palpitations TIA (transient ischemic attack) Benign paroxysmal positional vertigo Premature ventricular contraction Essential hypertension Non-rheumatic mitral valve stenosis Pulmonary hypertension CKD (chronic kidney disease) stage 3, GFR 30-59 ml/min Home Medications ?Medication ?Instructions ?Recorded ?Last Taken ?Type cyanocobalamin (vitamin B-12) 2,500 mcg PO MOWEFR SUPPLEMENT 10/18/21 Unknown History 2,500 mcg sublingual tablet (Vitamin B-12) atorvastatin 80 mg tablet 80 mg PO QHS 90 days #90 tabs 08/09/23 Unknown Rx apixaban 5 mg tablet (Eliquis) 5 mg PO BID 09/20/23 Unknown History rizatriptan 10 mg disintegrating See Rx Instructions PO .COMPLEX 09/20/23 Unknown History tablet (Maxalt-SCREENING SPECIALIST) losartan 50 mg tablet 50 mg PO BID 10/09/23 Unknown History propranolol 20 mg tablet 20 mg PO TID #90 tabs 02/25/25 Unknown Rx amlodipine 2.5 mg tablet 2.5 mg PO QDAY #90 tabs 05/19/25 Unknown Rx Allergy/AdvReac Type Severity Reaction Status Date / Time adhesive tape (adhesives - Allergy Intermediate Rash Verified 05/20/25 10:07 tape) poison brandee extract Allergy Rash Verified 05/20/25 10:07 poison oak extract Allergy Rash Verified 05/20/25 10:07 Family History Mother Diabetes Hypertension Surgical History (Updated 05/20/25 @ 10:21 by Kacy Wright) S/P thyroid biopsy Hx of colonoscopy Hx of ovarian cystectomy History of cholecystectomy (~2008) Social History household members: spouse housing: other number of children: 2 pets and animals: No Smoking Status: Never smoker alcohol intake: current details: occasional substance use type: does not use caffeine: No additional social history: - Ji Audit: Pertinent Findings Pertinent Findings EKG Perinent findings: EKG 05/18/2025. Sinus bradycardia. Minimal voltage criteria for LVH, may be normal variant Stress test pertinent findings: Stress test 10/04/2023. The patient exercised according to the Lexiscan for 1 minute achieving a work level of max METS 1.0 the resting heart rate of 53 bpm basilio to a maximal heart rate of 86 bpm. This value represents 58% of the maximal age-predicted heart rate. The exercise test was stopped due to completion of Lexiscan protocol. Echo (EF%) pertinent findings: Echo 08/08/2023. Normal LV size. The left ventricular systolic function is normal. EF is 55%. Stage I diastolic dysfunction. Pulmonary artery systolic pressure is 32 mmHg. Additional pertinent findings: Potassium 5.6 on 05/18/2025. The patient is having a recheck of the potassium on 05/24/[address] office Recommendation Anesthesia Recommendation Anesthesia recommendation: OPTIMIZED for anesthesia
--- NOTE | 2025-05-24 13:37 | PAT.ANESEVAL ---
Pre-Assessment Diagnosis/Proposed Procedure Planned Operative Procedure(s): HYSTEROSCOPY D&C Anesthesia History Anesthesia History - supervisor sawmill: Anesthesia History - supervisor sawmill Hx Hospitalization No 05/20/25 10:10 Any Problems With Anesthesia No 05/20/25 10:10 Cholinesterase deficiency No 05/20/25 10:10 You/Your Family Experience No 05/20/25 10:10 fever (hyperthermia) with Relationship Recent Exposure to Contagious No 12/22/24 14:06 Disease Does patient have nerve No 05/20/25 10:10 stimulator Patient instructed to have device shut off --Does patient have Pacemaker or ICD? When Was Last Pacemaker Check QUESTION #4 FULL TEXT: You/Your Family Experience fever (hyperthermia) with Anesthesia Last Oral Intake Last Oral intake: Last Oral Intake NPO since Meds taken in AM with sips of water? Meds patient instructed to take am of surgery PONV PONV - supervisor sawmill: PONV - supervisor sawmill Female Yes 05/20/25 10:10 HX of Motion Sickness Yes 05/20/25 10:10 HX of N/V After Surgery No 05/20/25 10:10 Non-Smoker Yes 05/20/25 10:10 Duration of Surgery greater No 05/20/25 10:10 than 60 minutes Number of Risk Factors 3 05/20/25 10:10 PONV Score Moderate Risk 05/20/25 10:10 Height & Weight Height & Weight: Anesthesia: Height & Weight Height 5 ft 5 in 05/18/25 08:19 Respiratory Assessment Respiratory Assessment - supervisor sawmill: Respiratory Tract Infection Hx - supervisor sawmill Hx Respiratory Tract Infection No 05/20/25 10:10 STOP Sleep Apnea STOP Sleep Apnea - supervisor sawmill: STOP Sleep Apnea - supervisor sawmill Hx Hypertension Yes: CONTROLLED WITH MEDS 05/20/25 10:10 Hx Sleep Apnea Yes 05/20/25 10:10 CPAP Yes 05/20/25 10:10 BIPAP No 05/20/25 10:10 Do you snore loudly (louder than talking or can be heard Do you often feel tired/ fatigued/ sleepy during daytime? Has anyone observed you stop breathing during sleep? STOP Results Positive 05/20/25 10:10 QUESTION #5 FULL TEXT : Do you snore loudly (louder than talking or can be heard through closed doors)? 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 Specify any problems Hx of Preganancy in last 3 No 05/20/25 10:10 Months Nurse Filling Out Transfusion DSCHRIBER 05/20/25 10:10 & Questions: Date: 05/20/25 05/20/25 10:10 Time: 10:11 05/20/25 10:10 Patient unable to answer at this time (ie. confused, unrespo /Reproduction History /Reproductive History - supervisor sawmill: /Reproductive Hx- supervisor sawmill Hx Now No 05/20/25 10:10 Gestational Age (in weeks): EDC: Hx Hx Para Hx Section SAB No 05/20/25 10:10 PFSH Medical History Wears glasses Wears dentures Post-menopausal Anxiety Alcohol use Thyroid disease Ambulates with cane Arthritis History of renal disease Anemia High cholesterol Migraine headache History of hiatal hernia Gastric reflux Non-smoker Shortness of breath on exertion CPAP (continuous positive airway pressure) dependence History of pain when walking History of echocardiogram History of stress test Hypertension Cardiology follow-up encounter Thyroid nodule H/O nephrolithotomy with removal of calculi Atrial fibrillation Chronic kidney disease (CKD) Atrophic kidney Shaking Palpitations TIA (transient ischemic attack) Benign paroxysmal positional vertigo Premature ventricular contraction Essential hypertension Non-rheumatic mitral valve stenosis Pulmonary hypertension CKD (chronic kidney disease) stage 3, GFR 30-59 ml/min Home Medications ?Medication ?Instructions ?Recorded ?Last Taken ?Type cyanocobalamin (vitamin B-12) 2,500 mcg PO MOWEFR SUPPLEMENT 10/18/21 Unknown History 2,500 mcg sublingual tablet (Vitamin B-12) atorvastatin 80 mg tablet 80 mg PO QHS 90 days #90 tabs 08/09/23 Unknown Rx apixaban 5 mg tablet (Eliquis) 5 mg PO BID 09/20/23 Unknown History rizatriptan 10 mg disintegrating See Rx Instructions PO .COMPLEX 09/20/23 Unknown History tablet (Maxalt-VIDEOGAME DESIGNER) losartan 50 mg tablet 50 mg PO BID 10/09/23 Unknown History propranolol 20 mg tablet 20 mg PO TID #90 tabs 02/25/25 Unknown Rx amlodipine 2.5 mg tablet 2.5 mg PO QDAY #90 tabs 05/19/25 Unknown Rx Allergy/AdvReac Type Severity Reaction Status Date / Time adhesive tape (adhesives - Allergy Intermediate Rash Verified 05/24/25 09:01 tape) poison brandee extract Allergy Rash Verified 05/24/25 09:01 poison oak extract Allergy Rash Verified 05/24/25 09:01 Family History Mother Diabetes Hypertension Surgical History S/P thyroid biopsy Hx of colonoscopy Hx of ovarian cystectomy History of cholecystectomy (~2008) Social History household members: spouse housing: other number of children: 2 pets and animals: No Smoking Status: Never smoker alcohol intake: current details: occasional substance use type: does not use caffeine: No additional social history: - Ji Audit: Pertinent Findings HISTORY of Pertinent Findings History of Pertinent Findings: EKG Pertinent Findings EKG Perinent findings EKG 05/18/2025. Sinus 05/20/25 16:52 bradycardia. Minimal voltage criteria for LVH, may be normal variant Stress Test Pertinent Findings Stress test pertinent findings Stress test 10/04/2023. The 05/20/25 16:52 patient exercised according to the Diasporaiscan for 1 minute achieving a work level of max METS 1.0 the resting heart rate of 53 bpm basilio to a maximal heart rate of 86 bpm. This value represents 58% of the maximal age- predicted heart rate. The exercise test was stopped due to completion of Lexiscan protocol. Echo Pertinent Findings Echo (EF%) pertinent findings Echo 08/08/2023. Normal LV 05/20/25 16:52 size. The left ventricular systolic function is normal. EF is 55%. Stage I diastolic dysfunction. Pulmonary artery systolic pressure is 32 mmHg. Additional Pertinent Findings Additional pertinent findings Potassium 5.6 on 05/18/2025. 05/20/25 16:52 The patient is having a recheck of the potassium on 05/24/[address] office Recommendation Anesthesia Recommendation Anesthesia recommendation: F/U recommended (Repeat potassium on 05/24/2025 was 6.0. This needs to be corrected prior to anesthesia and surgery.)
--- NOTE | 2025-05-24 13:56 | NURSING ---
THIS RN SPOKE WITH PT ON THE PHONE; PT AWARE POTASSIUM 6.0 ON 05/24; PT INFORMED THAT ANESTHESIA IS NOT CLEARING HER FOR SURGERY ON 05/25; ANES RECOMMENDATION FAX'D TO DR RESTREPO OFFICE AND VM LEFT WITH DOYLE; PT ENCOURAGED TO CONTACT HER PCP TO ADDRESS POTASSIUM CORRECTION.
[2025-05-25] VITALS (7 sets, daily range): BP systolic 130–153; BP diastolic 73–105; PULSE 61–70; RESP 16; TEMP 36.1–37.2; O2SAT 98–100; BMI 42.2
[2025-05-25] MEDS: Lactated Ringers 1,000 ML 15 ML IV (14:24)
--- NOTE | 2025-05-25 14:34 | PCM.PRE.AN2 ---
ASA Classification* ASA Classification ASA Classification: 2 Assessment & Plan Anesthesia* Anesthesia Assessment Anesthesia Assessment: Discussed sedation and/or anesthesia options, risks, benefits, and alternatives with patient/parents/legal guardian/POA. Questions invited. The patient/parents/legal guardian/POA seems to understand and agrees to proceed with anesthesia plan. Reviewed the physical assessment, medical history, allergy history and patient home medications list prior to surgery/procedure/anesthetic and documented any changes. Performed airway and anesthesia risk assessments. Anesthesia Type Anesthesia Type: General and MAC History Source History Obtained from:: Patient and Chart Anesthesia Focused Assessment* Temperature: 98.9 F Pulse Rate: 65 Blood Pressure: 153/81 Respiratory Rate: 16 Pulse Ox: 100 Oxygen Delivery Method: Room Air Airway Assessment Mouth opens: >3 cm Mallampati Score: II Teeth Condition: Dentures (Upper dentures present) Neck Range of motion (ROM): Limited ROM Labs Anesthesia Preop lab: CBC WBC, (4.4-11.0) 7.0 K/mm3 05/18/25, 08:39 RBC, (4.2-5.4) 3.66 M/mm3 L 05/18/25, 08:39 Hgb, (12.0-15.0) 10.5 g/dL L 05/18/25, 08:39 Hct, (37-47) 33.2 % L 05/18/25, 08:39 Plt Count, (150-450) 234 K/mm3 05/18/25, 08:39 CHEMISTRY Potassium, (3.3-5.1) 5.1 mmol/L 05/24/25, 15:10 Sodium, (133-145) 141 mmol/L 05/24/25, 15:10 Magnesium, (1.6-2.6) 2.1 mg/dL 10/01/18, 05:15 Phosphorus, (2.7-4.5) 3.8 mg/dL 05/24/25, 15:10 BUN, (4-19) 29 mg/dL H 05/24/25, 15:10 Creatinine, (0.70-1.20) 1.42 mg/dL H 05/24/25, 15:10 Glucose, (70-99) 131 mg/dL H 05/24/25, 15:10 POC Glucose, (70-110) 86 mg/dL 09/30/18, 19:30 TSH, (0.300-4.200) 2.610 uIU/mL 03/03/25, 17:41 COAG PT, (11.7-14.9) 13.6 SECONDS 08/14/23, 16:30 Pre-Assessment Diagnosis/Proposed Procedure Planned Operative Procedure(s): HYSTEROSCOPY D&C Anesthesia History Anesthesia History - research aide: Anesthesia History - research aide Hx Hospitalization No 05/20/25 10:10 Any Problems With Anesthesia No 05/20/25 10:10 Cholinesterase deficiency No 05/20/25 10:10 You/Your Family Experience No 05/20/25 10:10 fever (hyperthermia) with Relationship Recent Exposure to Contagious No 05/25/25 14:19 Disease Does patient have nerve No 05/20/25 10:10 stimulator Patient instructed to have device shut off --Does patient have Pacemaker No 05/25/25 14:19 or ICD? When Was Last Pacemaker Check QUESTION #4 FULL TEXT: You/Your Family Experience fever (hyperthermia) with Anesthesia Last Oral Intake Last Oral intake: Last Oral Intake NPO since 12:00 05/25/25 14:19 Meds taken in AM with sips of Yes 05/25/25 14:19 water? Meds patient instructed to take am of surgery PONV PONV - research aide: PONV - research aide Female Yes 05/20/25 10:10 HX of Motion Sickness Yes 05/20/25 10:10 HX of N/V After Surgery No 05/20/25 10:10 Non-Smoker Yes 05/20/25 10:10 Duration of Surgery greater No 05/20/25 10:10 than 60 minutes Number of Risk Factors 3 05/20/25 10:10 PONV Score Moderate Risk 05/20/25 10:10 Height & Weight Height & Weight: Anesthesia: Height & Weight Height 5 ft 5 in 05/25/25 14:19 Weight: 115 kg 05/25/25 14:19 Body Mass Index (BMI) 42.2 05/25/25 14:19 Respiratory Assessment Respiratory Assessment - research aide: Respiratory Tract Infection Hx - research aide Hx Respiratory Tract Infection No 05/20/25 10:10 STOP Sleep Apnea STOP Sleep Apnea - research aide: STOP Sleep Apnea - research aide Hx Hypertension Yes: CONTROLLED WITH MEDS 05/20/25 10:10 Hx Sleep Apnea Yes 05/20/25 10:10 CPAP Yes 05/20/25 10:10 BIPAP No 05/20/25 10:10 Do you snore loudly (louder than talking or can be heard Do you often feel tired/ fatigued/ sleepy during daytime? Has anyone observed you stop breathing during sleep? STOP Results Positive 05/20/25 10:10 QUESTION #5 FULL TEXT : Do you snore loudly (louder than talking or can be heard through closed doors)? 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 Specify any problems Hx of Preganancy in last 3 No 05/20/25 10:10 Months Nurse Filling Out Transfusion DSCHRIBER 05/20/25 10:10 & Questions: Date: 05/20/25 05/20/25 10:10 Time: 10:11 05/20/25 10:10 Patient unable to answer at this time (ie. confused, unrespo /Reproduction History /Reproductive History - research aide: /Reproductive Hx- research aide Hx Now No 05/20/25 10:10 Gestational Age (in weeks): EDC: Hx Hx Para Hx Section SAB No 05/20/25 10:10 Active Medications Active Medications: Current Medications Generic Name Dose Route Start Last Admin Trade Name Freq PRN Reason Stop Dose Admin Lactated Ringer's 1,000 mls @ 15 mls/hr 05/25/25 13:30 05/25/25 14:24 IV 15 mls/hr .Q48H PREETHI Administration PFSH Medical History Wears glasses Wears dentures Post-menopausal Anxiety Alcohol use Thyroid disease Ambulates with cane Arthritis History of renal disease Anemia High cholesterol Migraine headache History of hiatal hernia Gastric reflux Non-smoker Shortness of breath on exertion CPAP (continuous positive airway pressure) dependence History of pain when walking History of echocardiogram History of stress test Hypertension Cardiology follow-up encounter Thyroid nodule H/O nephrolithotomy with removal of calculi Atrial fibrillation Chronic kidney disease (CKD) Atrophic kidney Shaking Palpitations TIA (transient ischemic attack) Benign paroxysmal positional vertigo Premature ventricular contraction Essential hypertension Non-rheumatic mitral valve stenosis Pulmonary hypertension CKD (chronic kidney disease) stage 3, GFR 30-59 ml/min Home Medications ?Medication ?Instructions ?Recorded ?Last Taken ?Type cyanocobalamin (vitamin B-12) 2,500 mcg PO MOWEFR SUPPLEMENT 10/18/21 Unknown History 2,500 mcg sublingual tablet (Vitamin B-12) atorvastatin 80 mg tablet 80 mg PO QHS 90 days #90 tabs 08/09/23 Unknown Rx apixaban 5 mg tablet (Eliquis) 5 mg PO BID 09/20/23 05/21/25 History rizatriptan 10 mg disintegrating See Rx Instructions PO .COMPLEX 09/20/23 Unknown History tablet (Maxalt-INDUSTRIAL TRAINING SPECIALIST) losartan 50 mg tablet 50 mg PO BID 10/09/23 05/25/25 History propranolol 20 mg tablet 20 mg PO TID #90 tabs 02/25/25 05/25/25 Rx amlodipine 2.5 mg tablet 2.5 mg PO QDAY #90 tabs 05/19/25 05/25/25 Rx Allergy/AdvReac Type Severity Reaction Status Date / Time adhesive tape (adhesives - Allergy Intermediate Rash Verified 05/25/25 14:17 tape) poison brandee extract Allergy Rash Verified 05/25/25 14:17 poison oak extract Allergy Rash Verified 05/25/25 14:17 Family History Mother Diabetes Hypertension Surgical History S/P thyroid biopsy Hx of colonoscopy Hx of ovarian cystectomy History of cholecystectomy (~2008) Social History household members: spouse housing: other number of children: 2 pets and animals: No Smoking Status: Never smoker alcohol intake: current details: occasional substance use type: does not use caffeine: No additional social history: - Ji Review of Systems (Anesthesia) ROS Narrative System reviewed and no additional complaints, except as documented.
--- NOTE | 2025-05-25 15:45 | EMB_PTH ---
PATIENT: ROGE COOK LOC: [facility] [place] U#:[id number] AGE/SX: 75/F ROOM: RE05/25/[address]: Dr. Maeve Hudson DO : 1950 BED: DIS: 05/25/2025 SPEC #: [id number] RECD: 05/26/25 07:41 STATUS: BRIANA REJann #: [id number] ROXI: 05/25/25 15:[address]: Maeve Hudson DEPT: SURGICAL PATHOLOGY RECD BY: Elijah Fleming ENTERED: 05/26/25 10:29 SP TYPE: ENDOM BX/C RIANNA DR: Dr. Patricia Becker DO Tissues: A - Endometrium, NOS Procedures: Surgery Specimen Level IV HEADER OPERATION: Hysteroscopy, dilation and curettage PRE-OP DIAGNOSIS: Preoperative exam for gynecologic surgery, post menopausal bleeding TISSUE SUBMITTED: A- Endometrial currettings MICROSCOPIC DIAGNOSIS A. Endometrium, curettage: - Polypoid fragments of endometrium demonstrating cystic atrophy, suggestive of endometrial polyp(s). MICROSCOPIC DESCRIPTION Slides are reviewed. GROSS DESCRIPTION A. Received in formalin labeled with the patient's name and date of . Designated as endometrial curettings is a 2.8 x 2.6 x 0.8 cm aggregate of barnes-pink to carrillo, rubbery tissue fragments, mucoid material and clotted blood. Entirely submitted in 2 cassettes. FL 05/26/2025 CPT:57316
--- NOTE | 2025-05-25 17:24 | PCM.HP.BLA ---
History and Physical Date of Admission: 05/25/25 Intake Vital Signs 05/04/2508:23 05/18/2508:17 05/18/2508:19 Height 5 ft 5 in 5 ft 5 in 5 ft 5 in Weight: 252 lb 252 lb 5 oz BMI 41.9 42.0 BP 126/74 H 151/84 H Blood Pressure Location Rt brachial Position Sitting Respiration 18 Pulse 69 Pulse Source Monitor Temp 97.2 F L Pulse Oximetry (%) 99 Oxygen Delivery Method room air Intake Visit Reasons: surgical consult-polyp Auto Wrecker Required: No Is patient in pain?: No Allergies poison brandee extract Allergy (Verified 05/18/25 08:17) Rash poison oak extract Allergy (Verified 05/18/25 08:17) Rash Medications ?Medication ?Instructions ?Recorded ?Confirmed ?Type cyanocobalamin (vitamin B-12) 2,500 mcg PO MOWEFR SUPPLEMENT 10/18/21 05/18/25 History 2,500 mcg sublingual tablet (Vitamin B-12) atorvastatin 80 mg tablet 80 mg PO QHS 90 days #90 tabs 08/09/23 05/18/25 Rx apixaban 5 mg tablet (Eliquis) 5 mg PO BID 09/20/23 05/18/25 History rizatriptan 10 mg disintegrating See Rx Instructions PO .COMPLEX 09/20/23 05/18/25 History tablet (Maxalt-SUGAR DRIER) losartan 50 mg tablet 50 mg PO BID 10/09/23 05/18/25 History propranolol 20 mg tablet 20 mg PO TID #90 tabs 02/25/25 05/18/25 Rx Is last menstrual period known: No Post menopausal: Yes Patient : No : No [facility] Medical History Thyroid nodule H/O nephrolithotomy with removal of calculi JESUS (obstructive sleep apnea) Essential hypertension Atrial fibrillation Chronic kidney disease (CKD) Atrophic kidney Shaking Palpitations TIA (transient ischemic attack) Vertigo Benign paroxysmal positional vertigo Premature ventricular contraction Essential hypertension Non-rheumatic mitral valve stenosis Pulmonary hypertension CKD (chronic kidney disease) stage 3, GFR 30-59 ml/min Surgical History History of cholecystectomy (~2008) Family History Mother Diabetes Hypertension Social History household members: spouse housing: other number of children: 2 pets and animals: No Smoking Status: Never smoker alcohol intake: current details: occasional substance use type: does not use caffeine: No additional social history: - Ji [facility] surgical consult-polyp Details: ROGE COOK is a 75 year old who presents for a preoperative evaluation for a hysteroscopy dilation and curettage. The procedure is being performed for postmenopauasl bleeding and polyp remnants on EMB. Ultrasound shows the following: FINDINGS: Measurements: Uterus: 9.4 cm x 5.8 cm x 4.5 cm with a volume of 129.13 mL Endometrial Thickness: 13 mm. It is heterogeneous. Small amount of fluid is seen within it. Increased vascularity. Right Ovary: Not visualized. Left Ovary: Not visualized. TRANSABDOMINAL: Uterus: 1 cm x 1.1 cm x 0.6 cm fundal fibroid. Nabothian cyst. Endometrium: Heterogeneous thickening with vascularity and fluid of the endometrium measuring 13 mm. Clinical correlation recommended. Right ovary: Not visualized. Left ovary: Not visualized. Other: No large pelvic mass identified. Transvaginal sonography was performed to better visualize the endometrium. TRANSVAGINAL: Uterus: Fibroid uterus. Endometrium: Heterogeneously thickened endometrium as described. Clinical correlation recommended. Right ovary: Normal size and echotexture. Left ovary: Normal size and echotexture. Other adnexal findings: None. Cul-de-sac: No free intraperitoneal fluid identified. Tenderness: No tenderness US/Pelvic w/ Transvaginal IMPRESSION: Heterogeneously thickened endometrium measuring 13 mm. Clinical correlation recommended. History 2 Elective abortions Hx Para 2 Spontaneous abortions Hx # Term Pregnancies Ectopic pregnancies Hx # Pregnancies Multiple births # of living children 2 Past Pregnancies Del. Date Name GA/Weeks Outcome Route Bth Weight Infant Gen Labor Lgth Anesthesia Del Locatn Provider FOB Unknown Mallika Unknown Estelita ROS Const ROS Unobtainable: All systems reviewed & are unremarkable except as noted in H Resp Resp: Reports system reviewed and no additional complaints, except as documented; Denies cough GI GI: Reports as per HPI Psych Psych: Reports system reviewed and no additional complaints, except as documented Exam Const General: cooperative, healthy appearing, comfortable and no acute distress Resp Effort & Inspection: normal respiratory effort Skin General: no rashes or lesions noted Psych Appearance: grossly normal Speech and Movement: speech and movement normal Coding Level of Care Code Off vis,est,level 4 Diagnoses Preoperative exam for gynecologic surgery Z01.818 Postmenopausal bleeding N95.0 Paroxysmal atrial fibrillation I48.0 Atrial fibrillation type: paroxysmal Essential hypertension I10 Chronic kidney disease (CKD) N18.9 Assessment and Plan Assessment and Plan (1) Preoperative exam for gynecologic surgery: Status: Acute (2) Postmenopausal bleeding: Status: Acute (3) Atrial fibrillation: Status: Acute Qualifiers: Atrial fibrillation type: paroxysmal Qualified Code(s): I48.0 - Paroxysmal atrial fibrillation Comment: The patient has documented paroxysmal atrial fibrillation on a 30-day event recorder. She had 5 episodes 1 of which she was aware of. She has tolerated the medical regiment without any nuisance bleeding. She remains on Eliquis and aspirin. There is no evidence of atherosclerotic disease she has no carotid bruits and her stress test was negative for ischemia. She does complain of a tremor as her major complaint today of her right hand. This may be better treated with propranolol than metoprolol. (4) Essential hypertension: Status: Acute Comment: Patient's blood pressure is elevated in the office today but she brought in a list of blood pressures showed 140 - 156 systolic and 70-81 diastolic at home. (5) Chronic kidney disease (CKD): Status: Chronic Plan After discussing the patient's diagnosis and treatment plan options, patient wishes to proceed with surgical management. I have discussed with the patient the risks, benefits, and alternatives of the procedure which include but are not limited to risks of anesthesia, bleeding, infection, possible damage to bowel, bladder, or surrounding vasculature which could lead to additional surgery to evaluate any complications. Patient agrees to procedure and wishes to proceed. ACOG/uptodate references given for additional information regarding procedure. before surgery a cbc, cmp, and EKG will be ordered
--- NOTE | 2025-05-25 17:25 | PCM.DC ---
Discharge Instructions DC O2, CPAP, BIPAP needs Home O2 Discharge instructions: No Dressing / Incision Discharge Activity: Return to Normal Activity, May Shower and May Take a Tub Bath (after 1 week) May resume sexual activity in: 1-2 weeks Weight Bearing Status: Weight bearing as tolerated Lifting Restrictions: none Dressing / Incision Call your doctor if you observe: Fever of 101 or Higher, Using more than 1 pad per hour, Shortness of breath and Uncontrolled pain Follow Up Care Please Follow Up With: Maeve Hudson DO When: Call [phone] to schedule appointment. Test Results: Test results from this visit will be discussed in further detail at your follow-up appointment, if applicable. Discharge Plan Admission Primary Reason for Your Visit: hysteroscopy dilation and curettage Attending Provider: Maeve Hudson Primary Care Provider: Patricia Becker Instructions Print Language: Qatari Discharge Orders/Prescriptions Prescriptions: No Action rizatriptan [Maxalt-SWEET PICKLED FRUIT MAKER] 10 mg tablet,disintegrating See Rx Instructions PO .COMPLEX Rx Instructions: take 1 tab at onset of headache; if no relief may repeat 1 tab after at least 2 hrs; max = 3 tabs/24 hr PO Eliquis 5 mg tablet 5 mg PO BID losartan 50 mg tablet 50 mg PO BID cyanocobalamin (vitamin B-12) [Vitamin B-12] 2,500 mcg tablet, sublingual 2,500 mcg PO MOWEFR atorvastatin 80 mg Tablet 80 mg PO QHS 90 Days Qty: 90 3RF propranolol 20 mg tablet 20 mg PO TID Qty: 90 11RF amlodipine 2.5 mg tablet 2.5 mg PO QDAY Qty: 90 3RF Referrals / Follow Up: Patricia Becker DO [Primary Care Provider, Internal Medicine] Disposition Disposition (needs filled in before D/C Order can be placed): Home, Self Care
[2025-05-25] MEDS: Lidocaine 1% (20 ml mdv) 20 ML Vial (17:41)
--- NOTE | 2025-05-25 17:54 | OP.PCM_ITS ---
Multi Select Codes Urinary/Genital Urinary/Genital CPT Codes: 83366 Hysteroscopy, Polypectomy, Symphion Operative Report (Standard) Operative Information Date of Procedure: 05/25/25 Pre-Operative Diagnosis: postmenopausal bleeding Post-Operative Diagnosis: postmenopausal bleeding Surgery/Procedure Performed: hysteroscopy dilation and curettage vendor management consultant: No Type of Anesthesia: MAC and Topical Anesth RN Documented Start/Stop Times: Operation Date: 05/25/25 15:45 Case Time Into Pre-Op 05/25/25 13:29 Out of Pre-Op 05/25/25 17:25 Anesthesia Start 05/25/25 17:29 Into Room 05/25/25 17:29 Procedure Start Time: 17:29 Procedure Stop Time: 17:55 Select all DRAINS/GRAFTS/IMPLANTS that apply: None Estimated Blood Loss: 5cc Specimen collected: Yes Description of specimen(s) removed: endometrial curetting's Description of surgery: Patient was prepped and draped in a normal sterile fashion under MAC anesthesia. A weighted speculum was placed in the vagina and the anterior lip of the cervix was grasped with a single-tooth tenaculum. A paracervical block was placed with 1% lidocaine. Cervix was progressively dilated and the uterus sounded to 8 cm. The cervix was dilated enough to allow passage of a 5 mm hysteroscope. The lining was fully visualized and noted to have polyp like structures present . Curettage was performed and the specimen was sent to pathology. All instruments were removed from the vagina and excellent hemostasis was noted. Patient was awoken and taken to recovery in stable condition. Surgical Findings: thickened polypoid appearing endometrium Complications Complications: No Admit VTE Documentation VTE Present on Admission: No VTE Mechan Device Prophylaxis: SCD's VTE Pharm Prophylaxis ordered?: No
--- NOTE | 2025-05-25 17:57 | PCM.POST.ANE ---
Anesthesia: Postop Eval I Current Vital Signs Temperature: 97.5 F Pulse Rate: 70 Blood Pressure: 136/100 Respiratory Rate: 16 Pulse Ox: 98 Oxygen Delivery Method: Room Air Assessment Airway patent: Yes Spontaneous unlabored respirations: Yes Mental status: Awake and Calm nausea: No Vomiting: No Anesthesia Complication: No Fluid Hydration Crystalloid volume administer (ml): 500 Total IV fluid infused: 500 Progress Note Anesthesia document: Postop Eval 1 completed: Yes
--- NOTE | 2025-05-25 18:18 | POSTOPAN2_ITS ---
Anesthesia Postop Eval I Sum Postop Eval Completion status Anesthesia document: Postop Eval 1 completed: Yes Anesthesia Postop Eval I Summary Anesthesia Postop Eval I Summary: Anesthesia Postop Eval I: Assessment Summary Airway patent Yes 05/25/25 18:02 PACKER DENTURE.MEDM Spontaneous unlabored Yes 05/25/25 18:02 PACKER DENTURE.MEDM respirations Mental status Awake,Calm 05/25/25 18:02 PACKER DENTURE.MEDM nausea No 05/25/25 18:02 PACKER DENTURE.MEDM Vomiting No 05/25/25 18:02 PACKER DENTURE.MEDM Anesthesia Postop Eval I: Fluid Summary Crystalloid volume administer 500 05/25/25 18:02 PACKER DENTURE.MEDM (ml) Colloids volume administered ( ml) Blood Product volume administered (ml) Total IV fluid infused 500 05/25/25 18:02 PACKER DENTURE.MEDM Anesthesia Postop Eval I: Summary Notes Anesthesia Complication No 05/25/25 18:02 PACKER DENTURE.MEDM Anesthesia Complication Comment: Post-operative progress note Anesthesia: Postop Eval II Evaluation Mental status: Awake and Calm Pain Level: 1 nausea: No Vomiting: No Complications Anesthesia Complication: No
--- NOTE | 2025-05-25 18:18 | PCM.POSTANE2 ---
Anesthesia Postop Eval I Sum Postop Eval Completion status Anesthesia document: Postop Eval 1 completed: Yes Anesthesia Postop Eval I Summary Anesthesia Postop Eval I Summary: Anesthesia Postop Eval I: Assessment Summary Airway patent Yes 05/25/25 18:02 SPECIAL PROGRAMS DIRECTOR.MEDM Spontaneous unlabored Yes 05/25/25 18:02 SPECIAL PROGRAMS DIRECTOR.MEDM respirations Mental status Awake,Calm 05/25/25 18:02 SPECIAL PROGRAMS DIRECTOR.MEDM nausea No 05/25/25 18:02 SPECIAL PROGRAMS DIRECTOR.MEDM Vomiting No 05/25/25 18:02 SPECIAL PROGRAMS DIRECTOR.MEDM Anesthesia Postop Eval I: Fluid Summary Crystalloid volume administer 500 05/25/25 18:02 SPECIAL PROGRAMS DIRECTOR.MEDM (ml) Colloids volume administered ( ml) Blood Product volume administered (ml) Total IV fluid infused 500 05/25/25 18:02 SPECIAL PROGRAMS DIRECTOR.MEDM Anesthesia Postop Eval I: Summary Notes Anesthesia Complication No 05/25/25 18:02 SPECIAL PROGRAMS DIRECTOR.MEDM Anesthesia Complication Comment: Post-operative progress note Anesthesia: Postop Eval II Evaluation Mental status: Awake and Calm Pain Level: 1 nausea: No Vomiting: No Complications Anesthesia Complication: No
== END 2025-05-25 18:46 | disposition home or self-care (01) ==
LOC: SDC 13:23 → AC 13:24
PROVIDERS: PCP Internal Medicine; Referring Provider Obstetrics & Gynecology; Visit Provider Obstetrics & Gynecology
PROC: 0UDB8ZZ Extraction of Endometrium, Via Natural or Artificial Opening Endoscopic (ICD-10-PCS; CPT 58558; principal; 2025-05-25 15:30)
DX: N84.0 Polyp of corpus uteri (principal); I48.0 Paroxysmal atrial fibrillation; N18.30 Chronic kidney disease, stage 3 unspecified; N95.0 Postmenopausal bleeding; I12.9 Hypertensive chronic kidney disease with stage 1 through stage 4 chronic kidney disease, or unspecified chronic kidney disease; Z79.899 Other long term (current) drug therapy; Z79.01 Long term (current) use of anticoagulants; E78.00 Pure hypercholesterolemia, unspecified; K21.9 Gastro-esophageal reflux disease without esophagitis
CPT/HCPCS: 58558; 36415; 80048; 85025; 88305; 93005